=== PATIENT | female | born 1940 | race Caucasian/White ===

== ENCOUNTER 2023-05-19 08:00 | Outpatient (OUT) | payer MEDICARE, OTHER, SELFPAY ==
--- NOTE | 2023-05-19 | PCN_ITS ---
CARDIAC STRESS TEST Requesting Physician: Procedure Date: 05/19/2023 This was a Lexiscan stress test with myocardial perfusion imaging performed at the [facility]. Informed consent was obtained. Intravenous line was secured. Baseline ECG and vital signs were obtained. Lexiscan 0.4 mg were infused intravenously. The patient then went on to obtain myocardial imaging. Resting heart rate was 55 BPM and peak heart rate was 104 BPM. Resting blood pressure was 130/76 and peak blood pressure was 130/76. Resting ECG showed evidence of sinus rhythm with left bundle branch block pattern. ECG after infusion of Lexiscan showed evidence of sinus rhythm with frequent PACs and no significant other changes. SUMMARY OF THE FINDINGS: 1. Uninterpretable ECG stress test due to presence of left bundle branch block at baseline. 2. Myocardial perfusion images will be reportedly separately. MTDD
--- NOTE | 2023-05-19 08:25 | NM_ITS ---
Patient Name: GREG TODD MR#: [id number] : 1940 Exam Date: 05/19/2023 Ordering Doctor: DR Jaime Kelly M.D. RADIOLOGY REPORT PROCEDURE: NM MARQUISE PERF SPECT REST STR COMPARISON: None. INDICATIONS: CHEST PAIN, CORONARY ARTERY DISEASE TECHNIQUE: Exam Description: Stress/Rest one day protocol gated SPECT Rest Imagin.6 mCi Tc-99m Cardiolite IV on 05/19/2023 Stress Imaging 30.3 mCi Tc-99m Cardiolite IV on 05/19/2023 Exercise Protocol: 0.4 mg Lexiscan given IV Heart Rate (bpm): Rest: 58 Max: 103 PMHR: 74 Blood Pressure: Rest: 130/76 Max: 136/78 Symptoms: Rest and peak stress ECG findings were pending and the exercise portion of the study was pending per attending physician Dr. MARQUES . For more details please see separate cardiac stress test report. FINDINGS: QUALITY OF STUDY: Excellent. PERFUSION DEFECT: LOCATION: Basal inferolateral. Mid-inferolateral. Apical anterior. SIZE: Medium (3-4 segments). SEVERITY: Moderate. TYPE: Mixed. WALL MOTION: Normal. LV SIZE: Normal. 44 mL. TID / TCD: None; 0.7 LVEF: Normal. Calculated EF 84%. SUMMARY: Myocardial perfusion imaging study has ABNORMAL findings. CONCLUSION: 1. Small slightly reversible perfusion defect involving the apically anterior segment suggestive of acute ischemia. 2. Fixed perfusion defect involving the mid and basilar inferolateral segments favoring sequela of remote infarction. 3. Normal wall motion and ejection fraction. Dictated by: Nelson Montano M.D. on 05/19/2023 at 15:30 Approved by: Nelson Montano M.D. on 05/19/2023 at 15:37
[2023-05-19] MEDS: REGADENOSON 0.4 MG/5 ML SYRINGE IV (10:06)
== END 2023-05-19 08:01 | disposition home or self-care (01) ==
PROVIDERS: PCP Family Medicine; Visit Provider Internal Medicine Interventional Cardiology
DX: R07.9 Chest pain, unspecified (principal)
CPT/HCPCS: 78452; 93017; A9500; J2785

== ENCOUNTER 2023-07-19 08:47 | Outpatient (OUT) | payer MEDICARE, OTHER, SELFPAY ==
--- OUTSIDE RECORDS SUMMARY | 2023-07-19 09:02 | XMS_ITS | CCD ---
Author Organization [facility] Care Team Providers Care Salesman/Owner Name Role Phone Jennifer Shannon Primary Care Physician [phone] [place] ., DR RODRIGUEZ Consulting Unavailable DEVINE ., DR PACK Attending Unavailable DEVINE ., DR PACK Admitting Unavailable HOY ., DR RODRIGUEZ Primary Care Unavailable [place], DR SHEMAR Graandos Consulting Unavailable HOY ., DR RODRIGUEZ Primary Care Unavailable HOY ., DR RODRIGUEZ Consulting Unavailable HOY ., DR RODRIGUEZ Attending Unavailable HOY ., DR RODRIGUEZ Admitting Unavailable HOY ., DR RODRIGUEZ Consulting Unavailable HOY ., DR RODRIGUEZ Attending Unavailable HOY ., DR RODRIGUEZ Admitting Unavailable HOY ., DR RODRIGUEZ Primary Care Unavailable HOY ., DR RODRIGUEZ Attending Unavailable HOY ., DR RODRIGUEZ Admitting Unavailable HOY ., DR RODRIGUEZ Primary Care Unavailable GARIMA KELLY Attending Unavailable Ruiz DEVINE Attending Unavailable Quique Sebastian Attending Unavaila ble Allergies Allergy Classification Reported Allergen(s) Allergy Type Date of Onset Reaction(s) Facility (2 sources) Penicillin; Translations: [penicillin] Drug Allergy Eruption of skin (disorder) [facility] [place] (2 sources) Penicillins; Translations: [PENICILLINS] Drug allergy (disorder) 4 [facility] (1 source) No Known Medication Allergies; Translations: [No Known Medication Allergies] Propensity to adverse reactions (disorder) [facility] Repository Medications Current Medications Medication Drug Class(es) Dates Sig (Normalized) Sig (Original) aspirin 81 mg chewable tablet (1 source) Platelet Aggregation Inhibitor, Nonsteroidal Anti-inflammatory Drug Start: 01-03-2019 aspirin 81 mg Chew Tab 162 mg = 2 tab(s), Chewed, Daily Start Date: 01/03/19 Status: Ordered calcium carbonate 500 mg oral tablet (1 source) Start: 01-03-2019 take 1 tablet by mouth twice daily calcium carbonate 500 mg +D 1 tab(s), Oral, BID Start Date: 01/03/19 Status: Ordered clopidogrel 75 mg oral tablet (1 source) P2Y12 Platelet Inhibitor Start: 01-03-2019 take 1 tablet by mouth once daily Plavix 75 mg Tab 75 mg = 1 tab(s), Oral, Daily Start Date: 01/03/19 Status: Ordered docusate sodium 100 mg oral capsule (1 source) Start: 01-03-2019 take 1 capsule by mouth twice daily as needed for constipation Colace 100 mg Cap 100 mg = 1 cap(s), Oral, BID, PRN for constipation, # 20 cap(s), Refills(s) 0 Start Date: 01/03/19 Status: Ordered gabapentin 300 mg oral capsule (1 source) Anti-epileptic Agent Start: 01-03-2019 take 1 capsule by mouth twice daily Neurontin 300 mg Cap 300 mg = 1 cap(s), Oral, BID, Refills(s) 0 Start Date: 01/03/19 Status: Ordered latanoprost 0.05 mg/ml ophthalmic solution (1 source) Prostaglandin Analog Start: 01-03-2019 Xalatan 0.005% Soln-Opth 1 drop(s), OPTH, Once a day (at bedtime) Start Date: 01/03/19 Status: Ordered metFORMIN hydrochloride 500 mg oral tablet (1 source) Biguanide Start: 01-03-2019 take 1 tablet by mouth twice daily Glucophage 500 mg Tab 500 mg = 1 tab(s), Oral, BID Start Date: 01/03/19 Status: Ordered metoprolol tartrate 50 mg oral tablet (1 source) beta-Adrenergic Ancelmo Start: 01-03-2019 take 1 tablet by mouth once daily Metoprolol succinate 50 mg ER Tablet 50 mg, Oral, Daily Start Date: 01/03/19 Status: Ordered nitroglycerin 0.4 mg sublingual tablet (1 source) Nitrate Vasodilator Start: 01-03-2019 NitroStat 0.4 mg Tab 0.4 mg = 1 tab(s), SubLingual, q5min Start Date: 01/03/19 Status: Ordered ramipril 2.5 mg oral capsule (1 source) Angiotensin Converting Enzyme Inhibitor Start: 01-03-2019 take 1 capsule by mouth once daily Altace 2.5 mg Cap 2.5 mg = 1 cap(s), Oral, Daily Start Date: 01/03/19 Status: Ordered simvastatin 20 mg oral tablet (1 source) HMG-CoA Reductase Inhibitor Start: 01-03-2019 take 1 tablet by mouth once daily at bedtime simvastatin 20 mg Tab 20 mg = 1 tab(s), Oral, Once a day (at bedtime) Start Date: 01/03/19 Status: Ordered timolol 2.5 mg/ml ophthalmic solution (1 source) beta-Adrenergic Ancelmo Start: 01-03-2019 take 1 drop(s) into the eye(s) twice daily Timoptic 0.25% Soln-Opth 1 drop(s), Eye-Both, BID Start Date: 01/03/19 Status: Ordered Completed/Discontinued Medications Medication Drug Class(es) Dates Sig (Normalized) Sig (Original) Effer-K 25 mEq oral tablet, effervescent (1 source) Start: 09-16-2021 End: 09-11-2022 take 1 tablet by mouth twice daily Effer-K 25 mEq oral tablet, effervescent 25 mEq = 1 tab(s), Oral, BID, X 90 day(s), # 180 tab(s), Refills(s) 3, Pharmacy: [facility]/[id number], 161.3, cm, 04/21/21 14:11:00 EST, Height/Length Dosing, 81.8, kg, 04/21/21 14:11:00 EST, Weight Dosing Start Date: 09/16/21 Stop Date: 09/11/22 Status: Ordered Problems Active Problems Problem Classification Problem Date Documented Da te Episodic/Chronic Coronary atherosclerosis and other heart disease (4 sources) Coronary arteriosclerosis; Translations: [Atherosclerotic heart disease of [place] coronary artery without angina pectoris] Onset: 01-22-2022 04-13-2021 Chronic Diabetes mellitus without complication (2 sources) Diabetes mellitus; Translations: [Type 2 diabetes mellitus without complications] Onset: 01-22-2022 04-13-2021 Chronic Disorders of lipid metabolism (6 sources) Hyperlipidemia; Translations: [Hyperlipidemia, unspecified] Onset: 01-22-2022 01-23-2019 Chronic Diverticulosis and diverticulitis (1 source) Diverticular disease 04-13-2021 Chronic Essential hypertension (2 sources) Benign hypertension; Translations: [Essential (primary) hypertension] Onset: 01-22-2022 01-23-2019 Chronic Genitourinary symptoms and ill-defined conditions (4 sources) Stress incontinence (female) (male); Translations: [Genuine stress incontinence] Onset: 03-27-2022 Chronic Glaucoma (1 source) Glaucoma 04-13-2021 Chronic Hemorrhoids (1 source) Internal hemorrhoids 01-03-2019 Episodic Malaise and fatigue (2 sources) Other fatigue; Translations: [Other fatigue] Onset: 05-09-2023 Episodic Nonmalignant breast conditions (1 source) Fibrocystic disease of breast 04-13-2021 Chronic Nutritional deficiencies (1 source) Vitamin D deficiency, unspecified; Translations: [VITAMIN D DEFICIENCY UNSPECIFIED] Onset: 01-22-2022 Chronic Other and unspecified benign neoplasm (1 source) Pseudopolyposis of colon 01-03-2019 Episodic Other bone disease and musculoskeletal deformities (1 source) Osteopenia 04-13-2021 Episodic Other gastrointestinal disorders (1 source) Disorder of intestine; Translations: [Disease of intestine, unspecified] Onset: 04-02-2022 Episodic Other gastrointestinal disorders (1 source) Bowel problem 03-30-2021 Episodic Other nervous system disorders (4 sources) Other abnormalities of gait and mobility; Translations: [OTHER ABNORMALITIES GAIT AND MOBILITY] Onset: 06-09-2022 Episodic Other nutritional; endocrine; and metabolic disorders (1 source) Body mass index 30+ - obesity 04-21-2021 Chronic Other skin disorders (1 source) Inflamed seborrheic keratosis 04-21-2021 Episodic Other skin disorders (1 source) Senile hyperkeratosis 01-23-2019 Episodic Spondylosis; intervertebral disc disorders; other back problems (1 source) Spinal stenosis 04-13-2021 Episodic Varicose veins of lower extremity (1 source) Varicose veins of lower extremity 04-13-2021 Episodic Past or Other Problems Problem Classification Problem Date Documented Da te Episodic/Chronic Calculus of urinary tract (8 sources) Kidney stone; Translations: [Calculus of kidney] Onset: 03-22-2022 Episodic Deficiency and other anemia (1 source) Anemia, unspecified; Translations: [ANEMIA UNSPECIFIED] Onset: 01-22-2022 Episodic Diabetes mellitus without complication (1 source) Other abnormal glucose; Translations: [OTHER ABNORMAL GLUCOSE] Onset: 01-22-2022 Episodic Other gastrointestinal disorders (1 source) Disease of intestine, unspecified; Translations: [DISEASE OF INTESTINE UNSPECIFIED] Onset: 03-27-2022 Episodic Other screening for suspected conditions (not mental disorders or infectious disease) (1 source) Encounter for screening for malignant neoplasm of rectum; Translations: [ENC SCREEN MALIG NEOPLASM RECTUM] Onset: 01-22-2022 Episodic Residual codes; unclassified (4 sources) Insomnia, unspecified; Translations: [INSOMNIA UNSPECIFIED] Onset: 01-20-2022 Episodic Results Test Name Value Interpretation Reference Range Facility 36on 05-25-[address] Kelly on 05/24/2023: Please let the patient know that there is a minor abnormality on stress test that does not warrant cardiac catheterization. We will continue to treat him medically. Follow-up in 6 to 12 months which ever per my last clinic note Thank you 05/25/2023: LM on patient's VM. Dr. Shannon's office made aware also. Normal [facility] Office Visiton 05-09-2023 Follow-up visit [id number] Kelin Rosenberg 1940 F Date Provider Department Center 05/09/2023 [id number], GARIMA [facility] Family History Problem Relation Age of Onset Diabetes Mother Coronary artery disease Father Family Status - Relation Status Age at Mother Father Level of Service:08994 CO OFFICE/OUTPATIENT ESTABLISHED MOD MDM [address] [facility] Patient Letter FTMCon 2022 Patient [place] [facility] [place] 07, 2023 KELIN ROSENBERG [address] [place] [address] : 1940 Dear Kelin, This is a reminder that you are due for an appointment with [facility]. Please contact our office at [phone] to schedule your 10 year colon recall Thank you, [facility] Rem[facility]erson 02-07-2023 Reminders -- From: Isabel Dale MA To: Isabel Dale MA; Sent: 02/07/2023 10:24:57 EDT Show up: 02/07/2023 10:25:00 EDT Subject: colon recall Reminder Message [address] Esteban 02/16/13 first recall letter sent Normal [facility] LIPID PROFILEon 04-28-2022 CHOL-HDL RATIO NORM SEE BELOW Normal [facility] Comment on above: Result Comment: 3.3 - 4.4 LOW RISK 4.4 - 7.1 AVERAGE RISK 7.1 - 11.0 MODERATE RISK >11.0 HIGH RISK Performed By: #### L IPID, LIVER #### [facility] [address] [address] [address] Dora Mora Cholesterol [Mass/Vol] 199 mg/dL Normal <=200 [facility] Comment on above: Performed By: #### L IPID, LIVER #### [facility] [address] [address] [address] Dora Mora Cholesterol in HDL [Mass/Vol] 75 mg/dL Critically high 40-60 [facility] Comment on above: Performed By: #### L IPID, LIVER #### [facility] [address] [address] [address] Dora Mora Cholesterol in LDL [Mass/Vol] 86.2 mg/dL Normal [facility] Comment on above: Performed By: #### L IPID, LIVER #### [facility] [address] [address] [address] Dora Mora Cholesterol.total/Cho lesterol in HDL [Mass ratio] 2.7 {ratio} Normal [facility] Comment on above: Performed By: #### L IPID, LIVER #### [facility] [address] [address] [address] Dora Mora HDL NORMAL > or = 60 mg/dl - LOW CARDIOVASCULAR RISK <40 mg/dl - HIGH CARDIOVASCULAR RISK Normal [facility] Comment on above: Performed By: #### L IPID, LIVER #### [facility] [address] [address] [address] Dora Mora LDL CALC NORMAL SEE BELOW Normal [facility] Comment on above: Result Comment: <100 mg/dl OPTIMAL 100 - 129 mg/dl NEAR OR ABOVE OPTIMAL 130 - 159 mg/dl BORDERLINE HIGH 160 - 189 mg/dl HIGH >190 mg/dl VERY HIGH Performed By: #### L IPID, LIVER #### [facility] [address] [place] [address] Dr. Dora Mora Triglyceride [Mass/Vol] 189 mg/dL Critically high <=150 [facility] Comment on above: Performed By: #### L IPID, LIVER #### [facility] [address] [address] [address] Dora Mora VLDL CALC 37.8 mg/dL Normal [facility] Comment on above: Performed By: #### L IPID, LIVER #### [facility] [address] [address] [address] Dora Mora LIVER PROFILEon 04-28-2022 Albumin [Mass/Vol] 3.7 g/dL Normal 3.4-5.0 [facility] Comment on above: Performed By: #### L IPID, LIVER #### [facility] [address] [place] [address] Dr. Dora Mora Albumin/Globulin [Mass ratio] 1.0 {ratio} Normal [facility] Comment on above: Performed By: #### L IPID, LIVER #### [facility] [address] [place] [address] Dr. Dora Mora ALP [Catalytic activity/Vol] 62 U/L Normal 46-116 [facility] Comment on above: Performed By: #### L IPID, LIVER #### [facility] [address] [place] [address] Dr. Dora Mora ALT [Catalytic activity/Vol] 18 U/L Normal 14-59 [facility] Comment on above: Performed By: #### L IPID, LIVER #### [facility] [address] [place] [address] Dr. Dora Mora AST [Catalytic activity/Vol] 19 U/L Normal 15-37 [facility] Comment on above: Performed By: #### L IPID, LIVER #### [facility] [address] [place] [address] Dr. Dora Mora BILI, CONJUGATED 0.1 mg/dL Normal 0.0-0.2 [facility] Comment on above: Performed By: #### L IPID, LIVER #### [facility] [address] [place] [address] Dr. Dora Mora Bilirubin [Mass/Vol] 0.5 mg/dL Normal 0.2-1.0 [facility] Comment on above: Performed By: #### L IPID, LIVER #### [facility] [address] [place] [address] Dr. Dora Mora Globulin (S) [Mass/Vol] 3.7 g/dL Normal [facility] Comment on above: Performed By: #### L IPID, LIVER #### [facility] [address] [place] [address] Dr. Dora Mora Protein [Mass/Vol] 7.4 g/dL Normal 6.4-8.2 [facility] Comment on above: Performed By: #### L IPID, LIVER #### [facility] [address] [place] [address] Dr. Dora Mora XR KUB 1 VIEWon 03-22-2022 XR KUB 1 VIEW EXAMINATION: XR KUB 1 VIEW HISTORY: Kidney stone COMPARISON: No relevant comparison available. FINDINGS: KIDNEY/URETER - RIGHT: No visible renal or ureteral calcifications. KIDNEY/URETER - LEFT: No visible renal or ureteral calcifications. PELVIS: No visible ureteral calcifications. Any visible calcifications favor phleboliths. BOWEL: No abnormal dilation or deviation. BONES: Severe degenerative changes of the spine. Moderate bilateral hip osteoarthritis OTHER: Negative. No abnormal gaseous collections. IMPRESSION: No definite urinary tract calculi Electronically authenticated by: SHEMAR ARELLANO Date: 2022-03-22 12:08 Normal [facility] INSULINon 01-21-2022 Insulin 16.5 uIU/mL Normal 2.6-24.9 [facility] Comment on above: Performed By: #### I NSULIN #### [facility] [address] [place] [address] Dr. Dora Mora CBC AUTO DIFFon 01-20-2022 BASO # 0.0 103/ul Normal 0.0-0.1 [facility] Comment on above: Performed By: #### L IPID, LIVER #### [facility] [address] [address] [address] Dora Mora Basophils/100 WBC (Bld) 0.5 % Normal 0.2-2.0 [facility] Comment on above: Performed By: #### L IPID, LIVER #### [facility] [address] [address] [address] Dora Mora EO # 0.2 103/ul Normal 0.0-0.7 [facility] Comment on above: Performed By: #### L IPID, LIVER #### [facility] [address] [address] [address] Dora Mora Eosinophils/100 WBC (Bld) 2.4 % Normal 0.9-7.0 [facility] Comment on above: Performed By: #### L IPID, LIVER #### [facility] [address] [place] [address] Dr. Dora Mora Erythrocyte distribution width (RBC) [Ratio] 12.9 % Normal 11.0-15.0 [facility] Comment on above: Performed By: #### L IPID, LIVER #### [facility] [address] [address] [address] Dora Mora Hematocrit (Bld) [Volume fraction] 39.9 % Normal 36.0-48.0 [facility] Comment on above: Performed By: #### L IPID, LIVER #### [facility] [address] [address] [address] Dora Mora Hemoglobin (Bld) [Mass/Vol] 13.4 g/dL Normal 12.0-16.0 [facility] Comment on above: Performed By: #### L IPID, LIVER #### [facility] [address] [address] [address] Dora Mora IG # 0.07 10e3/ul Critically high 0.00-0.03 [facility] Comment on above: Performed By: #### L IPID, LIVER #### [facility] [address] [address] [address] Dora Mora IG % 0.9 % Critically high 0.0-0.5 [facility] Comment on above: Performed By: #### L IPID, LIVER #### [facility] [address] [address] [address] Dora Mora LYMPH # 2.5 103/ul Normal 1.2-3.8 [facility] Comment on above: Performed By: #### L IPID, LIVER #### [facility] [address] [place] [address] Dr. Dora Mora Lymphocytes/100 WBC (Bld) 32.4 % Normal 20.5-60.0 [facility] Comment on above: Performed By: #### L IPID, LIVER #### [facility] [address] [place] [address] Dr. Dora Mora MANUAL DIFF REQ NO Normal [facility] Comment on above: Performed By: #### L IPID, LIVER #### [facility] [address] [place] [address] Dr. Dora Mora MCH (RBC) [Entitic mass] 30.1 pg Normal 26.7-34.0 [facility] Comment on above: Performed By: #### L IPID, LIVER #### [facility] [address] [place] [address] Dr. Dora Mora MCHC (RBC) [Mass/Vol] 33.6 g/dL Normal 29.9-35.2 [facility] Comment on above: Performed By: #### L IPID, LIVER #### [facility] [address] [place] [address] Dr. Dora Mora MCV (RBC) [Entitic vol] 89.7 fL Normal 81.0-99.0 [facility] Comment on above: Performed By: #### L IPID, LIVER #### [facility] [address] [place] [address] Dr. Dora Mora MONO # 0.5 103/ul Normal 0.3-0.8 [facility] Comment on above: Performed By: #### L IPID, LIVER #### [facility] [address] [place] [address] Dr. Dora Mora Monocytes/100 WBC (Bld) 6.5 % Normal 1.7-12.0 [facility] Comment on above: Performed By: #### L IPID, LIVER #### [facility] [address] [place] [address] Dr. Dora Mora NEUT # 4.3 103/ul Normal 1.4-6.5 [facility] Comment on above: Performed By: #### L IPID, LIVER #### [facility] [address] [place] [address] Dr. Dora Mora Neutrophils/100 WBC (Bld) 57.3 % Normal 43.0-75.0 [facility] Comment on above: Performed By: #### L IPID, LIVER #### [facility] [address] [place] [address] Dr. Dora Mora Platelet mean volume (Bld) [Entitic vol] 9.2 fL Critically low 9.5-13.5 [facility] Comment on above: Performed By: #### L IPID, LIVER #### [facility] [address] [place] [address] Dr. Dora Mora PLT 261 103/ul Normal 150-450 [facility] Comment on above: Performed By: #### L IPID, LIVER #### [facility] [address] [place] [address] Dr. Dora Mora RBC 4.45 106/ul Normal 4.20-5.40 [facility] Comment on above: Performed By: #### L IPID, LIVER #### [facility] [address] [place] [address] Dr. Dora Mora WBC 7.6 103/ul Normal 4.0-11.0 [facility] Comment on above: Performed By: #### L IPID, LIVER #### [facility] [address] [place] [address] Dr. Dora Mora FREE THYROXINE INDEX T7on FTI 2.93 Normal 1.30-4.50 [facility] Comment on above: Performed By: #### C MP, TSH, T7, LIPID #### [facility] [address] [place] [address] Dr. Dora Mora T3U 38.0 % Normal 30.0-39.0 [facility] Comment on above: Performed By: #### C MP, TSH, T7, LIPID #### [facility] [address] [address] [address] Dora Mora T4 [Mass/Vol] 7.70 ug/dL Normal 4.80-13.90 [facility] Comment on above: Performed By: #### C MP, TSH, T7, LIPID #### [facility] [address] [address] [address] Dora Mora GLYCOHEMOGLOBIN A1Con 2021 ADA RECOMMENDATION SEE BELOW Normal [facility] Comment on above: Result Comment: ADA RECOMMENDED LIMIT 4.0 - 6.0 ADA THERAPEUTIC TARGET < 7.0 ACTION SUGGESTED > 7.0 Performed By: #### A 1C #### [facility] [address] [address] [address] Dora Mora Glucose [Mass/Vol] 148 mg/dL Normal [facility] Comment on above: Performed By: #### A 1C #### [facility] [address] [address] [address] Dora Mora HbA1c (Bld) [Mass fraction] 6.8 % Critically high 4.5-6.2 [facility] Comment on above: Performed By: #### A 1C #### [facility] [address] [address] [address] Dora Mora IRONon 01-20-2022 Iron [Mass/Vol] 88.0 ug/dL Normal 50.0-170.0 [facility] Comment on above: Performed By: #### I JOCELYNN, VITAD #### [facility] [address] [address] [address] Dora Mora LIPID PROFILEon 01-20-2022 CHOL-HDL RATIO NORM SEE BELOW Normal [facility] Comment on above: Result Comment: 3.3 - 4.4 LOW RISK 4.4 - 7.1 AVERAGE RISK 7.1 - 11.0 MODERATE RISK >11.0 HIGH RISK Performed By: #### L IPID, LIVER #### [facility] [address] [address] [address] Dora Mora Cholesterol [Mass/Vol] 180 mg/dL Normal <=200 [facility] Comment on above: Performed By: #### L IPID, LIVER #### [facility] [id number] Dora Mora Cholesterol in HDL [Mass/Vol] 64 mg/dL Critically high 40-60 [facility] Comment on above: Performed By: #### L IPID, LIVER #### [facility] [address] [address] [address] Dora Mora Cholesterol in LDL [Mass/Vol] 55.4 mg/dL Normal [facility] Comment on above: Performed By: #### L IPID, LIVER #### [facility] [address] [address] [address] Dora Mora Cholesterol.total/Cho lesterol in HDL [Mass ratio] 2.8 {ratio} Normal [facility] Comment on above: Performed By: #### L IPID, LIVER #### [facility] [address] [address] [address] Dora Mora HDL NORMAL > or = 60 mg/dl - LOW CARDIOVASCULAR RISK <40 mg/dl - HIGH CARDIOVASCULAR RISK Normal [facility] Comment on above: Performed By: #### L IPID, LIVER #### [facility] [address] [address] [address] Dora Mora LDL CALC NORMAL SEE BELOW Normal [facility] Comment on above: Result Comment: <100 mg/dl OPTIMAL 100 - 129 mg/dl NEAR OR ABOVE OPTIMAL 130 - 159 mg/dl BORDERLINE HIGH 160 - 189 mg/dl HIGH >190 mg/dl VERY HIGH Performed By: #### L IPID, LIVER #### [facility] [address] [address] [address] Dora Mora Triglyceride [Mass/Vol] 303 mg/dL Critically high <=150 [facility] Comment on above: Performed By: #### L IPID, LIVER #### [facility] [address] [address] [address] Dora Mora VLDL CALC 60.6 mg/dL Normal [facility] Comment on above: Performed By: #### L IPID, LIVER #### [facility] [address] [place] [address] Dr. Dora Mora PROF 14(COMP METB)on 022 Albumin [Mass/Vol] 3.4 g/dL Normal 3.4-5.0 [facility] Comment on above: Performed By: #### C MP, TSH, T7, LIPID #### [facility] [address] [place] [address] Dr. Dora Mora Albumin/Globulin [Mass ratio] 0.9 {ratio} Normal [facility] Comment on above: Performed By: #### C MP, TSH, T7, LIPID #### [facility] [address] [place] [address] Dr. Dora Mora ALP [Catalytic activity/Vol] 61 U/L Normal 46-116 [facility] Comment on above: Performed By: #### C MP, TSH, T7, LIPID #### [facility] [address] [place] [address] Dr. Dora Mora ALT [Catalytic activity/Vol] 22 U/L Normal 14-59 [facility] Comment on above: Performed By: #### C MP, TSH, T7, LIPID #### [facility] [address] [place] [address] Dr. Dora Mora Anion gap [Moles/Vol] 10.9 mmol/L Normal [facility] Comment on above: Performed By: #### C MP, TSH, T7, LIPID #### [facility] [address] [place] [address] Dr. Dora Mora AST [Catalytic activity/Vol] 13 U/L Critically low 15-37 [facility] Comment on above: Performed By: #### C MP, TSH, T7, LIPID #### [facility] [address] [place] [address] Dr. Dora Mora Bilirubin [Mass/Vol] 0.6 mg/dL Normal 0.2-1.0 [facility] Comment on above: Performed By: #### C MP, TSH, T7, LIPID #### [facility] [address] [address] [address] Dora Mora Calcium [Mass/Vol] 9.4 mg/dL Normal 8.5-10.1 [facility] Comment on above: Performed By: #### C MP, TSH, T7, LIPID #### [facility] [address] [address] [address] Dora Mora Chloride [Moles/Vol] 103 mmol/L Normal 98-107 [facility] Comment on above: Performed By: #### C MP, TSH, T7, LIPID #### [facility] [address] [address] [address] Dora Mora CO2 [Moles/Vol] 28.6 mmol/L Normal 21.0-32.0 [facility] Comment on above: Performed By: #### C MP, TSH, T7, LIPID #### [facility] [address] [address] [address] Dora Mora Creatinine [Mass/Vol] 0.86 mg/dL Normal 0.55-1.02 [facility] Comment on above: Performed By: #### C MP, TSH, T7, LIPID #### [facility] [address] [address] [address] Dora Mora EGFR-AF ZAMBIAN >60 Normal >=60 [facility] Comment on above: Performed By: #### C MP, TSH, T7, LIPID #### [facility] [address] [place] [address] Dr. Dora Mora EGFR-NON AF ZAMBIAN >60 Normal >=60 [facility] Comment on above: Performed By: #### C MP, TSH, T7, LIPID #### [facility] [address] [address] [address] Dora Mora Globulin (S) [Mass/Vol] 3.6 g/dL Normal [facility] Comment on above: Performed By: #### C MP, TSH, T7, LIPID #### [facility] [address] [address] [address] Dora Mora Glucose [Mass/Vol] 167 mg/dL Critically high 74-106 [facility] Comment on above: Performed By: #### C MP, TSH, T7, LIPID #### [facility] [address] [address] [address] Dora Mora Potassium [Moles/Vol] 4.5 mmol/L Normal 3.5-5.1 [facility] Comment on above: Performed By: #### C MP, TSH, T7, LIPID #### [facility] [address] [place] [address] Dr. Dora Mora Protein [Mass/Vol] 7.0 g/dL Normal 6.4-8.2 [facility] Comment on above: Performed By: #### C MP, TSH, T7, LIPID #### [facility] [address] [place] [address] Dr. Dora Mora Sodium [Moles/Vol] 138 mmol/L Normal 136-145 [facility] Comment on above: Performed By: #### C MP, TSH, T7, LIPID #### [facility] [address] [place] [address] Dr. Dora Mora Urea nitrogen [Mass/Vol] 20.0 mg/dL Critically high 7.0-18.0 [facility] Comment on above: Performed By: #### C MP, TSH, T7, LIPID #### [facility] [address] [place] [address] Dr. Dora Mora Urea nitrogen/Creatinine [Mass ratio] 23.3 mg/mg Normal [facility] Comment on above: Performed By: #### C MP, TSH, T7, LIPID #### [facility] [address] [place] [address] Dr. Dora Mora TSHon 01-20-2022 TSH 1.657 uIU/mL Normal 0.358-3.[address] [facility] Comment on above: Performed By: #### C MP, TSH, T7, LIPID #### [facility] [address] [place] [address] Dr. Dora Mora VITAMIN D 25 OHon 01-20-2022 VIT D 25-OH 96.7 ng/mL Normal [facility] Comment on above: Performed By: #### I JOCELYNN VITAD #### [facility] [address] [address] [address] Dora Mora VIT D RANGES SEE BELOW Normal [facility] Comment on above: Result Comment: <20 ng/mL Vit D deficient 20 - <30 ng/mL Vit D insufficient 30 - 100 ng/mL Vit D sufficient >100 ng/mL Potential Toxicity Performed By: #### I JOCELYNN VITAD #### [facility] [address] [address] [address] Dora Mora Vital Signs Date Time Vital Sign Value Performing Clinician Faci lity 04-02-2022 08:12-0500 Blood Pressure Location Ruiz DEVINE [facility] 04-02-2022 08:12-0500 Diastolic blood pressure 72 mm[Hg] Ruiz DEVINE [facility] 04-02-2022 08:12-0500 Heart rate 68 /min Ruiz DEVINE [facility] 04-02-2022 08:12-0500 Respiratory rate 16 /min Ruiz DEVINE [facility] 04-02-2022 08:12-0500 Systolic blood pressure 124 mm[Hg] Ruiz DEVINE [facility] Encounters Encounter Date Encounter Type Care Provider Facility Start: 04-02-2024 ambulatory Ruiz Connor ty:[facility] Start: 05-09-2023 End: 05-09-2023 ambulatory [facility] Start: 02-07-2023 ambulatory Quique Sebastian Facility:[facility] Start: 06-09-2022 End: 07-07-[address] JENNIFER SHANNON . Facility:[facility] Start: 04-28-2022 End: 04-29-[address] JENNIFER SHANNON . Facility:[facility] Start: 04-02-2022 End: 04-02-2022 Patient encounter procedure Ruiz DEVINE [facility] Start: 03-22-2022 End: 03-23-[address] JENNIFER SHANNON . Facility: Start: 01-20-2022 End: 01-21-[address] JENNIFER SHANNON . Facility: Procedures Date Procedure Procedure Detail Performing Clinician Start: 04-28-2021 Excisional biopsy Shannonterry DEVINE Comment on above: right hand- inflamed seborrheic keratosis Start: 05-03-2013 Extracorporeal shock wave lithotripsy of calculus of kidney Ruiz DEVINE Comment on above: left stent removal Start: 04-26-2013 Cystoscopic insertio n of ureteric stent Ruiz DEVINE Comment on above: left Start: 02-02-2010 Cystoscopy Ruiz MARILYN ASH Comment on above: right stent removal Start: 01-28-2010 Cystoscopic insertio n of ureteric stent Ruiz DEVINE Start: 01-19-2010 Cystourethroscopy wi th dilation of urethral stricture Ruiz DEVINE Start: 04-18-2009 Coronary artery bypa ss grafts x 4 Ruiz DEVINE Immunizations Immunization Date Immunization Notes Care Provider Eliane santiago 04-18-2020 SARS-CoV-2 (COVID-19 ) [id number] vaccine Ruiz DEVINE [facility] Comment on above: Result Comment: pt d oes not have her card and can not remember the dates Payers Date Payer Category Payer Medicare [id number] 1959 Private Health Insurance [id number] 1940 Unknown [id number] 1940 Unknown [id number] [id number] 1940 Unknown [id number] [id number] 1940 Unknown [id number] [id number] 1940 Unknown [id number] [id number] Social History Date Type Detail Facility Start: 04-21-2021 Tobacco smoking status Never s moked tobacco (finding) [facility] Sex Assigned At Female [facility] Functional Status Date Assessment Result Facility 04-02-2022 Functional Status N/A [facility] Progress note 05-09-2023 Note Date & Type Note Facility 05-09-2023 Note [facility] Note Chief Complaint: Patient here for 1 year follow up CAD, hypertension, and hyperlipidemia. Denies chest pain, SOB, and palpitations. No lab work since last Apr 2022. HPI: Kelin Rosenberg is a 81 y.o. female with a history of coronary artery disease, prior coronary artery bypass graft surgery in 2009, hypertension, diabetes mellitus and HLD. Doing well from cardiac standpoint Hx of sciatic nerve pain, this has improved with therapy She has chronic vertigo which is currently well controlled, takes meclizine if needed Denies CP, dyspnea, HERRING, orthopnea, PND, LE edema, dizziness/LH, palpitations, syncope. Update 05/09/2023: The patient does not remember exactly how she felt prior to bypass in 2009 however her main symptoms related to fatigue. She had no chest pain at that time. She currently states that she is fatigued however thinks this is related to poor sleeping. She takes multiple naps during the day and therefore cannot sleep properly at night NM stress test 05/05/2018 CONCLUSION: 1. No acute or reversible ischemia. 2. Small, moderate fixed anterior septal wall perfusion defect; remote infarction versus breast attenuation artifact. Remote infarction is suspected. 3. Normal wall motion and ejection fraction. Cardiology ROS: Review of Systems Constitutional: Positive for weight loss (21# since Apr 2022). All other systems reviewed and are negative. Past Medical History She has a past medical history of Arrhythmia, Coronary artery disease, Diabetes (CMS/HCC), Glaucoma, Hyperlipidemia, Hypertension, and Kidney stones. Surgical History She has a past surgical history that includes Coronary artery bypass graft (07/01/2009) and Cardiac catheterization (06/27/2009). Social History She reports that she has never smoked. She has never used smokeless tobacco. She reports that she does not currently use alcohol. No history on file for drug use. Family History Family History Problem Relation Name Age of Onset Diabetes Mother Coronary artery disease Father Allergies Penicillins Medications Current Outpatient Medications: aspirin 81 mg EC tablet, Take 162 mg by mouth 1 (one) time., Disp: , Rfl: gabapentin (Neurontin) 300 mg capsule, gabapentin 300 mg capsule TAKE 1 CAPSULE BY MOUTH TWICE DAILY, Disp: , Rfl: latanoprost (Xalatan) 0.005 % ophthalmic solution, latanoprost 0.005 % eye drops, Disp: , Rfl: metFORMIN (Glucophage) 500 mg tablet, metformin 500 mg tablet TAKE 1 TABLET BY MOUTH TWICE DAILY, Disp: , Rfl: metoprolol succinate XL (Toprol-XL) 50 mg 24 hr tablet, metoprolol succinate ER 50 mg tablet,extended release 24 hr TAKE 1 TABLET BY MOUTH EVERY DAY, Disp: 90 tablet, Rfl: 3 potassium bicarbonate (K-Lyte) 25 mEq effervescent tablet, Take 25 mEq by mouth in the morning and at bedtime., Disp: , Rfl: ramipril (Altace) 2.5 mg capsule, ramipril 2.5 mg capsule TAKE 1 CAPSULE BY MOUTH EVERY DAY, Disp: , Rfl: simvastatin (Zocor) 20 mg tablet, simvastatin 20 mg tablet TAKE 1 TABLET BY MOUTH EVERY night, Disp: , Rfl: Last Recorded Vitals BP 118/74 (BP Location: Left arm, Patient Position: Sitting) Pulse 64 Ht 1.6 m (5' 3 ) Wt 68 kg (150 lb) SpO2 98% BMI 26.57 kg/m??? Physical Examination: GENERAL: alert and oriented x3, well developed, in no acute distress. HEAD: atraumatic, normocephalic. EYES: MAGNOLIA, EOMI. NECK: trachea midline, no JVD present, no carotid bruits present. CARDIAC: S1, S2 present. RRR. No murmur, rubs, or gallops. RESPIRATORY: CTAB, no increased effort of breathing, no rales, rhonchi, or wheezing. ABDOMEN: soft, nontender, nondistended. EXTREMITIES: no lower extremity edema, peripheral pulses are 2+ bilaterally. No rash/skin discoloration present. NEURO: strength/sensation equal and symmetric in bilateral upper and lower extremities. PSYCH: appropriate mood, affect, and judgement. Assessment: Coronary atherosclerosis hx CABG 2010 [address] RADIAL OM1 SVG X2 RCA - non ischemic stress test 2019. Essential hypertension Hyperlipidemia Type 2 diabetes mellitus Fatigue: Anginal equivalent? Plan: Continue optimal medical therapy for coronary disease including aspirin, high intensity statin therapy, a beta-ancelmo and an angiotensin-converting enzyme inhibitor It has been 5 years since hr last ischemic work-up, will repeat a stress test given h/o CAD, CABG and DM. Will have a high threshold to recommend repeat angiography given her clinical stability unless high risk findings are seen Given her diabetes and vascular disease, an SGLT2 inhibitor would be strongly recommended She is on Zocor or simvastatin; I would recommend switching to atorvastatin or rosuvastatin which are guideline recommended statins in patients with coronary artery disease. Will defer to Dr. Shannon her family physician Return to clini (more content not included)... [facility] Hospital Discharge instructions 04-02-2022 Note Date & Type Note Facility 04-02-2022 Hospital Discharg e instructions Patient Education 04/02/2022 08:53:58 Kidney Stones, [id number] Kidney Stones Kidney stones are rock-like masses that form inside of the kidneys. Kidneys are organs that make pee (urine). A kidney stone may move into other parts of the urinary tract, including: The tubes that connect the kidneys to the bladder (ureters). The bladder. The tube that carries urine out of the body (urethra). Kidney stones can cause very bad pain and can block the flow of pee. The stone usually leaves your body (passes) through your pee. You may need to have a doctor take out the stone. What are the causes? Kidney stones may be caused by: A condition in which certain glands make too much parathyroid hormone (primary hyperparathyroidism). A buildup of a type of crystals in the bladder made of a chemical called uric acid. The body makes uric acid when you eat certain foods. Narrowing (stricture) of one or both of the ureters. A kidney blockage that you were born with. Past surgery on the kidney or the ureters, such as gastric bypass surgery. What increases the risk? You are more likely to develop this condition if: You have had a kidney stone in the past. You have a family history of kidney stones. You do not drink enough water. You eat a diet that is high in protein, salt (sodium), or sugar. You are overweight or very overweight (obese). What are the signs or symptoms? Symptoms of a kidney stone may include: Pain in the side of the belly, right below the ribs (flank pain). Pain usually spreads (radiates) to the groin. Needing to pee often or right away (urgently). Pain when going pee (urinating). Blood in your pee (hematuria). Feeling like you may vomit (nauseous). Vomiting. Fever and chills. How is this treated? Treatment depends on the size, location, and makeup of the kidney stones. The stones will often pass out of the body through peeing. You may need to: Drink more fluid to help pass the stone. In some cases, you may be given fluids through an IV tube put into one of your veins at the hospital. Take medicine for pain. Make changes in your diet to help keep kidney stones from coming back. Sometimes, medical procedures are needed to remove a kidney stone. This may involve: A procedure to break up kidney stones using a beam of light (laser) or shock waves. Surgery to remove the kidney stones. Follow these instructions at home: Medicines Take [id number] and prescription medicines only as told by your doctor. Ask your doctor if the medicine prescribed to you requires you to avoid driving or using heavy machinery. Eating and drinking Drink enough fluid to keep your pee pale yellow. You may be told to drink at least 8 10 glasses of water each day. This will help you pass the stone. If told by your doctor, change your diet. This may include: ?Limiting how much salt you eat. ?Eating more fruits and vegetables. ?Limiting how much meat, poultry, fish, and eggs you eat. Follow instructions from your doctor about eating or drinking restrictions. General instructions Collect pee samples as told by your doctor. You may need to collect a pee sample: ?24 hours after a stone comes out. ?8 12 weeks after a stone comes out, and every 6 12 months after that. Strain your pee every time you pee (urinate), for as long as told. Use the strainer that your doctor recommends. Do not throw out the stone. Keep it so that it can be tested by your doctor. Keep all follow-up visits as told by your doctor. This is important. You may need follow-up tests. How is this prevented? To prevent another kidney stone: Drink enough fluid to keep your pee pale yellow. This is the best way to prevent kidney stones. Eat healthy foods. Avoid certain foods as told by your doctor. You may be told to eat less protein. Stay at a healthy weight. Where to find more information National Kidney Foundation (NKF): www.kidney.org [facility] (UCF): www.urologyhealth.org Contact a doctor if: You have pain that gets worse or does not get better with medicine. Get help right away if: You have a fever or chills. You get very bad pain. You get new pain in your belly (abdomen). You pass out (faint). You cannot pee. Summary Kidney stones are rock-like masses that form inside of the kidneys. Kidney stones can cause very bad pain and can block the flow of pee. The stones will often pass out of the body through peeing. Drink enough fluid to keep your pee pale yellow. This information is not intended to replace advice given to you by your health care provider. Make sure you discuss any questions you have with your health care provider. Document Released: 09/20/2008 Document Revised: 08/21/2019 Document Reviewed: 08/21/2019 [employer] Patient Education 2020 [employer] Follow Up Care 03/30/2021 09:32:03 With:SYBIL RODRIGUEZ, Ruiz Rangel, MILADYSL Address: [address] [place] [address]- When: Unknown [facility] Evaluation + Plan note Note Date & Type Note Facility Evaluation + Plan note No data available for this section [facility] Progress note Note Date & Type Note Facility Progress note No data available for this section [facility] Summary Purpose Family History No Family History Records FoundNo Family History Records FoundNo Family History Records Found Advance Directives No Advanced Directives Records FoundNo Advanced Directives Records FoundNo Advanced Directives Records Found Additional Source Comments Patient Care team informatio n (unrecognized section and content) Personnel Name: Jennifer Shannon MD Address: Address: [address] [place] [address] [place] [address]- INFORMATION SOURCE (unrecogn ized section and content) DATE CREATED AUTHOR 07/24/2022 [facility] DATE CREATED AUTHOR AUTHOR'S ORGANIZ ATION 05/26/2023 [facility] DATE CREATED AUTHOR AUTHOR'S ORGANIZ ATION 06/21/2023 [facility] FOR RECORDS PERTAINING TO PATIENTS WHO ARE OR HAVE BEEN ENROLLED IN A CHEMICAL DEPENDENCY/SUBSTANCEABUSE PROGRAM, SOME INFORMATION MAY BE OMITTED. This clinical summary was aggregated from multiple sources. Caution should be exercised in using it in the provision of clinical care. This summary normalizes information from multiple sources, and as a consequence, information in this document may materially change the coding, format and clinical context of patient data. In addition, data may be omitted in some cases. CLINICAL DECISIONS SHOULD BE BASED ON THE PRIMARY CLINICAL RECORDS. [facility] [employer] [facility]. provides no warranty or guarantee of the accuracy or completeness of information in this document.
[2023-07-19 09:37] LABS: Basophils Percent Auto 0.6 % (0.2-2.0); Eosinophils Absolute Auto 0.5 10^3/uL (0.0-0.7); Eosinophils Percent Auto 7.5 % (0.9-7.0); Immature Granulocytes Abs Auto 0.02 10^3/uL (0.00-0.03); Immature Granulocytes Pct Auto 0.3 % (0.0-0.5); Lymphocytes Absolute Auto 1.9 10^3/uL (1.2-3.8); Mean Corpuscular HGB Conc 32.5 g/dL (29.9-35.2); Mean Corpuscular Volume 92.2 fL (81.0-99.0); Mean Platelet Volume 9.5 fL (9.5-13.5); Monocytes Absolute Auto 0.5 10^3/uL (0.3-0.8); Neutrophils Absolute Auto 3.5 10^3/uL (1.4-6.5); Neutrophils Percent Auto 54.6 % (43.0-75.0); Platelet Count 277 10^3/uL (150-450); Red Blood Count 4.34 10^6/uL (4.20-5.40); White Blood Count 6.4 10^3/uL (4.0-11.0)
[2023-07-19 10:43] LABS: Estimated Average Glucose 128 mg/dL; Glycohemoglobin A1C 6.1 % (4.5-6.2)
[2023-07-19 11:02] LABS: Alanine Aminotransferase 18 U/L (14-59); Albumin Globulin Ratio 0.8; Albumin Level 3.3 g/dL (3.4-5.0); Alkaline Phosphatase 65 U/L (46-116); Anion Gap 12.3; Aspartate Amino Transferase 16 U/L (15-37); Bilirubin Total 0.4 mg/dL (0.2-1.0); Calcium 9.4 mg/dL (8.5-10.1); Carbon Dioxide 29.6 mmol/L (21.0-32.0); Chloride 104 mmol/L (98-107); Cholesterol 157 mg/dL (<=200); Estimated GFR (African America >60 (>=60); Estimated GFR (Non-African Ame >60 (>=60); Free T3 2.34 pg/mL (2.18-3.98); Globulin 3.9 g/dL; Glucose 115 mg/dL (74-106); HDL Cholesterol 80 mg/dL (40-60); Potassium 3.9 mmol/L (3.5-5.1); Sodium 142 mmol/L (136-145); Thyroid Stimulating Hormone 2.146 uIU/mL (0.358-3.740); Total Protein 7.2 g/dL (6.4-8.2); Triglycerides 77 mg/dL (<=150); VLDL CHOLESTEROL 15.4 mg/dL
== END 2023-07-19 08:48 | disposition home or self-care (01) ==
LOC: LAB 08:49
PROVIDERS: PCP Family Medicine; Visit Provider Family Medicine
DX: E78.00 Pure hypercholesterolemia, unspecified (principal); E11.9 Type 2 diabetes mellitus without complications; I10 Essential (primary) hypertension; D64.9 Anemia, unspecified; E55.9 Vitamin D deficiency, unspecified
CPT/HCPCS: 36415; 80053; 80061; 82306; 83036; 83540; 84436; 84443; 84481; 85025

== ENCOUNTER 2023-11-16 15:57 | Outpatient (REF) | payer MEDICARE, OTHER, SELFPAY ==
--- OUTSIDE RECORDS SUMMARY | 2023-11-16 16:09 | XMS_ITS | CCD ---
Author Organization [facility] Care Team Providers Care Trousseau Consultant Name Role Phone Jennifer Shannon Primary Care Physician DE ., DR RODRIGUEZ Consulting Unavailable DEVINE ., DR PACK Attending Unavailable DEVINE ., DR PACK Admitting Unavailable HOY ., DR RODRIGUEZ Primary Care Unavailable ABERDEEN, DR SHEMAR Granados Consulting Unavailable HOY ., DR RODRIGUEZ Primary [...] [penicillin] Drug Allergy Eruption of skin (disorder) [facility] General Surgery [place] (2 sources) Penicillins; Translations: [PENICILLINS] Drug allergy (disorder) 4 [facility] Rep[facility] (1 source) No Known Medication Allergies; Translations: [No Known Medication Allergies] Propensity to adverse reactions (disorder) [facility] Repository Medications Current Medications Medication Drug Class(es) [...] day(s), # 180 tab(s), Refills(s) 3, Pharmacy: [facility]/pharmacy #[id number], 161.3, cm, 04/21/21 14:11:00 EST, Height/Length Dosing, 81.8, kg, 04/21/21 14:11:00 EST, Weight Dosing Start Date: 09/16/21 Stop Date: 09/11/22 Status: Ordered Problems Active Problems Problem Classification Problem Date Documented Da te Episodic/Chronic Coronary atherosclerosis and other heart disease (4 sources) Coronary arteriosclerosis; Translations: [Atherosclerotic heart disease of [place] coronary artery without angina pectoris] Onset: 01-22-2022 [...] Dr. Shannon's office made aware also. Normal [facility] Office Visiton 05-09-2023 Follow-up visit [id number] Kelin Rosenberg 1940 F Date Provider Department Center 05/09/2023 271-GARIMA KELLY [facility] Family History Problem Relation Age of Onset Diabetes Mother Coronary artery disease Father Family Status - Relation Status Age at Mother Father Level of Service:48222 HI OFFICE/OUTPATIENT ESTABLISHED MOD MDM 30 MIN Normal [facility] Patient Letter FTMCon 2022 Patient Letter [facility] February 07, 2023 KELIN ROSENBERG [address] [place] [address] : 1940 Dear Kelin, This is a reminder that you are due for an appointment with [facility]. Please contact our office at [phone] to schedule your 10 year colon recall Thank you, [facility] Reminderson 02-07-2023 Reminders -- From: Isabel Dale MA To: Isabel Dale MA; Sent: 02/07/2023 10:24:57 EDT Show up: 02/07/2023 10:25:00 EDT Subject: colon recall Reminder Message [address] Esteban 02/16/13 first recall letter sent Normal [facility] LIPID PROFILEon 04-28-2022 CHOL-HDL RATIO NORM SEE BELOW Normal [facility] Comment on above: Result Comment: 3.3 - 4.4 LOW RISK 4.4 - 7.1 AVERAGE RISK 7.1 - 11.0 MODERATE RISK >11.0 HIGH RISK Performed By: #### L IPID, LIVER #### [facility] [address] [address] [address] Dora Mora Cholesterol [Mass/Vol] 199 mg/dL Normal <=200 [facility] Comment on above: Performed By: #### L IPID, LIVER #### [facility] [address] [address] [address] Dora Mora Cholesterol in HDL [Mass/Vol] 75 mg/dL Critically high 40-60 [facility] Comment on above: Performed By: #### L IPID, LIVER #### [facility] [address] [address] [address] Dora Mora Cholesterol in LDL [Mass/Vol] 86.2 mg/dL Normal [facility] Comment on above: Performed By: #### L IPID, LIVER #### [facility] [address] [address] [address] Dora Mora Cholesterol.total/Cho lesterol in HDL [Mass ratio] 2.7 {ratio} Normal [facility] Comment on above: Performed By: #### L IPID, LIVER #### [facility] [address] [address] [address] Dora Mora HDL NORMAL > or = 60 mg/dl - LOW CARDIOVASCULAR RISK <40 mg/dl - HIGH CARDIOVASCULAR RISK Normal [facility] Comment on above: Performed By: #### L IPID, LIVER #### [facility] [address] [address] [address] Dora Mora LDL CALC NORMAL SEE BELOW Normal [facility] Comment on above: Result Comment: <100 mg/dl OPTIMAL 100 - 129 mg/dl NEAR OR ABOVE OPTIMAL 130 - 159 mg/dl BORDERLINE HIGH 160 - 189 mg/dl HIGH >190 mg/dl VERY HIGH Performed By: #### L IPID, LIVER #### [facility] [address] [place] [address] Dr. Dora Mora Triglyceride [Mass/Vol] 189 mg/dL Critically high <=150 [facility] Comment on above: Performed By: #### L IPID, LIVER #### [facility] [address] [place] [address] Dr. Dora Mora VLDL CALC 37.8 mg/dL Normal [facility] Comment on above: Performed By: #### L IPID, LIVER #### [facility] [address] [place] [address] Dr. Dora Mora LIVER PROFILEon 04-28-2022 Albumin [Mass/Vol] 3.7 g/dL Normal 3.4-5.0 [facility] Comment on above: Performed By: #### L IPID, LIVER #### [facility] [address] [place] [address] Dr. Dora Mora Albumin/Globulin [Mass ratio] 1.0 {ratio} Normal [facility] Comment on above: Performed By: #### L IPID, LIVER #### [facility] [address] [place] [address] Dr. Dora Mora ALP [Catalytic activity/Vol] 62 U/L Normal 46-116 [facility] Comment on above: Performed By: #### L IPID, LIVER #### [facility] [address] [place] [address] Dr. Dora Mora ALT [Catalytic activity/Vol] 18 U/L Normal 14-59 [facility] Comment on above: Performed By: #### L IPID, LIVER #### [facility] [address] [place] [address] Dr. Dora Mora AST [Catalytic activity/Vol] 19 U/L Normal 15-37 [facility] Comment on above: Performed By: #### L IPID, LIVER #### [facility] [address] [place] [address] Dr. Dora Mora BILI, CONJUGATED 0.1 mg/dL Normal 0.0-0.2 [facility] Comment on above: Performed By: #### L IPID, LIVER #### [facility] [address] [place] [address] Dr. Dora Mora Bilirubin [Mass/Vol] 0.5 mg/dL Normal 0.2-1.0 [facility] Comment on above: Performed By: #### L IPID, LIVER #### [facility] [address] [place] [address] Dr. Dora Mora Globulin (S) [Mass/Vol] 3.7 g/dL Normal [facility] Comment on above: Performed By: #### L IPID, LIVER #### [facility] [address] [place] [address] Dr. Dora Mora Protein [Mass/Vol] 7.4 g/dL Normal 6.4-8.2 [facility] Comment on above: Performed By: #### L IPID, LIVER #### [facility] [address] [place] [address] Dr. Dora Mora XR KUB 1 VIEWon [...] SHEMAR ARELLANO Date: 2022-03-22 12:08 Normal [facility] INSULINon 01-21-2022 Insulin 16.5 uIU/mL Normal 2.6-24.9 [facility] Comment on above: Performed By: #### I NSULIN #### [facility] [address] [place] [address] Dr. Dora Mora CBC AUTO DIFFon 01-20-2022 BASO # 0.0 103/ul Normal 0.0-0.1 [facility] Comment on above: Performed By: #### L IPID, LIVER #### [facility] [address] [place] [address] Dr. Dora Mora Basophils/100 WBC (Bld) 0.5 % Normal 0.2-2.0 [facility] Comment on above: Performed By: #### L IPID, LIVER #### [facility] [address] [place] [address] Dr. Dora Mora EO # 0.2 103/ul Normal 0.0-0.7 [facility] Comment on above: Performed By: #### L IPID, LIVER #### [facility] [address] [place] [address] Dr. Dora Mora Eosinophils/100 WBC (Bld) 2.4 % Normal 0.9-7.0 [facility] Comment on above: Performed By: #### L IPID, LIVER #### [facility] [address] [place] [address] Dr. Dora Mora Erythrocyte distribution width (RBC) [Ratio] 12.9 % Normal 11.0-15.0 [facility] Comment on above: Performed By: #### L IPID, LIVER #### [facility] [address] [place] [address] Dr. Dora Mora Hematocrit (Bld) [Volume fraction] 39.9 % Normal 36.0-48.0 [facility] Comment on above: Performed By: #### L IPID, LIVER #### [facility] [address] [place] [address] Dr. Dora Mora Hemoglobin (Bld) [Mass/Vol] 13.4 g/dL Normal 12.0-16.0 [facility] Comment on above: Performed By: #### L IPID, LIVER #### [facility] [address] [place] [address] Dr. Dora Mora IG # 0.07 10e3/ul Critically high 0.00-0.03 [facility] Comment on above: Performed By: #### L IPID, LIVER #### [facility] [address] [place] [address] Dr. Dora Mora IG % 0.9 % Critically high 0.0-0.5 [facility] Comment on above: Performed By: #### L IPID, LIVER #### [facility] [address] [place] [address] Dr. Dora Mora LYMPH # 2.5 103/ul Normal 1.2-3.8 [facility] Comment on above: Performed By: #### L IPID, LIVER #### [facility] [address] [place] [address] Dr. Dora Mora Lymphocytes/100 WBC (Bld) 32.4 % Normal 20.5-60.0 [facility] Comment on above: Performed By: #### L IPID, LIVER #### [facility] [address] [place] [address] Dr. Dora Mora MANUAL DIFF REQ NO Normal [facility] Comment on above: Performed By: #### L IPID, LIVER #### [facility] [address] [place] [address] Dr. Dora Mora MCH (RBC) [Entitic mass] 30.1 pg Normal 26.7-34.0 [facility] Comment on above: Performed By: #### L IPID, LIVER #### [facility] [address] [place] [address] Dr. Dora Mora MCHC (RBC) [Mass/Vol] 33.6 g/dL Normal 29.9-35.2 [facility] Comment on above: Performed By: #### L IPID, LIVER #### [facility] [address] [place] [address] Dr. Dora Mora MCV (RBC) [Entitic vol] 89.7 fL Normal 81.0-99.0 [facility] Comment on above: Performed By: #### L IPID, LIVER #### [facility] [address] [place] [address] Dr. Dora Mora MONO # 0.5 103/ul Normal 0.3-0.8 [facility] Comment on above: Performed By: #### L IPID, LIVER #### [facility] [address] [place] [address] Dr. Dora Mora Monocytes/100 WBC (Bld) 6.5 % Normal 1.7-12.0 [facility] Comment on above: Performed By: #### L IPID, LIVER #### [facility] [address] [place] [address] Dr. Dora Mora NEUT # 4.3 103/ul Normal 1.4-6.5 [facility] Comment on above: Performed By: #### L IPID, LIVER #### [facility] [address] [place] [address] Dr. Dora Mora Neutrophils/100 WBC (Bld) 57.3 % Normal 43.0-75.0 [facility] Comment on above: Performed By: #### L IPID, LIVER #### [facility] [address] [place] [address] Dr. Dora Mora Platelet mean volume (Bld) [Entitic vol] 9.2 fL Critically low 9.5-13.5 [facility] Comment on above: Performed By: #### L IPID, LIVER #### [facility] [address] [place] [address] Dr. Dora Mora PLT 261 103/ul Normal 150-450 [facility] Comment on above: Performed By: #### L IPID, LIVER #### [facility] [address] [place] [address] Dr. Dora Mora RBC 4.45 106/ul Normal 4.20-5.40 [facility] Comment on above: Performed By: #### L IPID, LIVER #### [facility] [address] [place] [address] Dr. Dora Mora WBC 7.6 103/ul Normal 4.0-11.0 [facility] Comment on above: Performed By: #### L IPID, LIVER #### [facility] [address] [place] [address] Dr. Dora Mora FREE THYROXINE INDEX T7on FTI 2.93 Normal 1.30-4.50 [facility] Comment on above: Performed By: #### C MP, TSH, T7, LIPID #### [facility] [address] [address] [address] Dora Mora T3U 38.0 % Normal 30.0-39.0 [facility] Comment on above: Performed By: #### C MP, TSH, T7, LIPID #### [facility] [address] [address] [address] Dora Mora T4 [Mass/Vol] 7.70 ug/dL Normal 4.80-13.90 [facility] Comment on above: Performed By: #### C MP, TSH, T7, LIPID #### [facility] [address] [address] [address] Dora Mora GLYCOHEMOGLOBIN A1Con 2021 ADA RECOMMENDATION SEE BELOW Normal [facility] Comment on above: Result Comment: ADA RECOMMENDED LIMIT 4.0 - 6.0 ADA THERAPEUTIC TARGET < 7.0 ACTION SUGGESTED > 7.0 Performed By: #### A 1C #### [facility] [address] [place] [address] Dr. Dora Mora Glucose [Mass/Vol] 148 mg/dL Normal [facility] Comment on above: Performed By: #### A 1C #### [facility] [address] [address] [address] Dora Mora HbA1c (Bld) [Mass fraction] 6.8 % Critically high 4.5-6.2 [facility] Comment on above: Performed By: #### A 1C #### [facility] [address] [place] [address] Dr. Dora Mora IRONon 01-20-2022 Iron [Mass/Vol] 88.0 ug/dL Normal 50.0-170.0 [facility] Comment on above: Performed By: #### I JOCELYNN, VITAD #### [facility] [address] [place] [address] Dr. Dora Mora LIPID PROFILEon 01-20-2022 CHOL-HDL RATIO NORM SEE BELOW Normal [facility] Comment on above: Result Comment: 3.3 - 4.4 LOW RISK 4.4 - 7.1 AVERAGE RISK 7.1 - 11.0 MODERATE RISK >11.0 HIGH RISK Performed By: #### L IPID, LIVER #### [facility] [address] [address] [address] Dora Mora Cholesterol [Mass/Vol] 180 mg/dL Normal <=200 [facility] Comment on above: Performed By: #### L IPID, LIVER #### [facility] [address] [address] [address] Dora Mora Cholesterol in HDL [Mass/Vol] 64 mg/dL Critically high 40-60 [facility] Comment on above: Performed By: #### L IPID, LIVER #### [facility] [address] [address] [address] Dora Mora Cholesterol in LDL [Mass/Vol] 55.4 mg/dL Normal [facility] Comment on above: Performed By: #### L IPID, LIVER #### [facility] [address] [address] [address] Dora Mora Cholesterol.total/Cho lesterol in HDL [Mass ratio] 2.8 {ratio} Normal [facility] Comment on above: Performed By: #### L IPID, LIVER #### [facility] [address] [address] [address] Dora Mora HDL NORMAL > or = 60 mg/dl - LOW CARDIOVASCULAR RISK <40 mg/dl - HIGH CARDIOVASCULAR RISK Normal [facility] Comment on above: Performed By: #### L IPID, LIVER #### [facility] [address] [address] [address] Dora Mora LDL CALC NORMAL SEE BELOW Normal [facility] Comment on above: Result Comment: <100 mg/dl OPTIMAL 100 - 129 mg/dl NEAR OR ABOVE OPTIMAL 130 - 159 mg/dl BORDERLINE HIGH 160 - 189 mg/dl HIGH >190 mg/dl VERY HIGH Performed By: #### L IPID, LIVER #### [facility] [address] [address] [address] Dora Mora Triglyceride [Mass/Vol] 303 mg/dL Critically high <=150 [facility] Comment on above: Performed By: #### L IPID, LIVER #### [facility] [address] [address] [address] Dora Mora VLDL CALC 60.6 mg/dL Normal [facility] Comment on above: Performed By: #### L IPID, LIVER #### [facility] [address] [address] [address] Dora Mora PROF 14(COMP METB)on 022 Albumin [Mass/Vol] 3.4 g/dL Normal 3.4-5.0 [facility] Comment on above: Performed By: #### C MP, TSH, T7, LIPID #### [facility] [address] [place] [address] Dr. Dora Mora Albumin/Globulin [Mass ratio] 0.9 {ratio} Normal [facility] Comment on above: Performed By: #### C MP, TSH, T7, LIPID #### [facility] [address] [place] [address] Dr. Dora Mora ALP [Catalytic activity/Vol] 61 U/L Normal 46-116 [facility] Comment on above: Performed By: #### C MP, TSH, T7, LIPID #### [facility] [address] [place] [address] Dr. Dora Mora ALT [Catalytic activity/Vol] 22 U/L Normal 14-59 [facility] Comment on above: Performed By: #### C MP, TSH, T7, LIPID #### [facility] [address] [address] [address] Dora Mora Anion gap [Moles/Vol] 10.9 mmol/L Normal [facility] Comment on above: Performed By: #### C MP, TSH, T7, LIPID #### [facility] [address] [address] [address] Dora Mora AST [Catalytic activity/Vol] 13 U/L Critically low 15-37 [facility] [place] Comment on above: Performed By: #### C MP, TSH, T7, LIPID #### [facility] [address] [address] [address] Dora Mora Bilirubin [Mass/Vol] 0.6 mg/dL Normal 0.2-1.0 [facility] Comment on above: Performed By: #### C MP, TSH, T7, LIPID #### [facility] [address] [place] [address] Dr. Dora Mora Calcium [Mass/Vol] 9.4 mg/dL Normal 8.5-10.1 [facility] Comment on above: Performed By: #### C MP, TSH, T7, LIPID #### [facility] [address] [place] [address] Dr. Dora Mora Chloride [Moles/Vol] 103 mmol/L Normal 98-107 [facility] Comment on above: Performed By: #### C MP, TSH, T7, LIPID #### [facility] [address] [place] [address] Dr. Dora Mora CO2 [Moles/Vol] 28.6 mmol/L Normal 21.0-32.0 [facility] Comment on above: Performed By: #### C MP, TSH, T7, LIPID #### [facility] [address] [place] [address] Dr. Dora Mora Creatinine [Mass/Vol] 0.86 mg/dL Normal 0.55-1.02 [facility] Comment on above: Performed By: #### C MP, TSH, T7, LIPID #### [facility] [address] [place] [address] Dr. Dora Mora EGFR-AF NIUEAN >60 Normal >=60 [facility] Comment on above: Performed By: #### C MP, TSH, T7, LIPID #### [facility] [address] [place] [address] Dr. Dora Mora EGFR-NON AF NIUEAN >60 Normal >=60 [facility] Comment on above: Performed By: #### C MP, TSH, T7, LIPID #### [facility] [address] [place] [address] Dr. Dora Mora Globulin (S) [Mass/Vol] 3.6 g/dL Normal [facility] Comment on above: Performed By: #### C MP, TSH, T7, LIPID #### [facility] [address] [place] [address] Dr. Dora Mora Glucose [Mass/Vol] 167 mg/dL Critically high 74-106 [facility] Comment on above: Performed By: #### C MP, TSH, T7, LIPID #### [facility] [address] [place] [address] Dr. Dora Mora Potassium [Moles/Vol] 4.5 mmol/L Normal 3.5-5.1 [facility] Comment on above: Performed By: #### C MP, TSH, T7, LIPID #### [facility] [address] [place] [address] Dr. Dora Mora Protein [Mass/Vol] 7.0 g/dL Normal 6.4-8.2 [facility] Comment on above: Performed By: #### C MP, TSH, T7, LIPID #### [facility] [address] [place] [address] Dr. Dora Mora Sodium [Moles/Vol] 138 mmol/L Normal 136-145 [facility] Comment on above: Performed By: #### C MP, TSH, T7, LIPID #### [facility] [address] [place] [address] Dr. Dora Mora Urea nitrogen [Mass/Vol] 20.0 mg/dL Critically high 7.0-18.0 [facility] Comment on above: Performed By: #### C MP, TSH, T7, LIPID #### [facility] [address] [place] [address] Dr. Dora Mora Urea nitrogen/Creatinine [Mass ratio] 23.3 mg/mg Normal [facility] Comment on above: Performed By: #### C MP, TSH, T7, LIPID #### [facility] [address] [place] [address] Dr. Dora Mora TSHon 01-20-2022 TSH 1.657 uIU/mL Normal 0.358-3.740 [facility] Comment on above: Performed By: #### C MP, TSH, T7, LIPID #### [facility] [address] [place] [address] Dr. Dora Mora VITAMIN D 25 OHon 01-20-2022 VIT D 25-OH 96.7 ng/mL Normal [facility] Comment on above: Performed By: #### I JOCELYNN, VITAD #### [facility] [address] [place], [place] [address] Dr. Dora Mora VIT D RANGES SEE BELOW Normal [facility] Comment on above: Result Comment: <20 ng/mL Vit D deficient 20 - <30 ng/mL Vit D insufficient 30 - 100 ng/mL Vit D sufficient >100 ng/mL Potential Toxicity Performed By: #### I JOCELYNN VITAD #### [facility] [address] [address] [address] Dora Mora Vital Signs Date Time Vital Sign Value Performing Clinician Faci davy 04-02-2022 08:12-0500 Blood Pressure Location Ruiz DEVINE [facility] 04-02-2022 08:12-0500 Diastolic blood pressure 72 mm[Hg] Ruiz DEVINE [facility] 04-02-2022 08:12-0500 Heart rate 68 /min Ruiz DEVINE [facility] 04-02-2022 08:12-0500 Respiratory rate 16 /min Ruiz DEVINE [facility] 04-02-2022 08:12-0500 Systolic blood pressure 124 mm[Hg] Ruiz DEVINE [facility] Encounters Encounter Date Encounter Type Care Provider Facility Start: 04-02-2024 ambulatory Ruiz Howei ty:[facility] [place] Start: 05-09-2023 End: 05-09-2023 ambulatory GARIMA [facility] Start: 02-07-2023 ambulatory Quique Sebastian Facility:[facility] Start: 06-09-2022 End: 07-07-[address] JENNIFER SHANNON . Facility: Start: 04-28-2022 End: 04-29-[address] JENNIFER SHANNON . Facility:[facility] Start: 04-02-2022 End: 04-02-2022 Patient encounter procedure Ruiz [facility] [facility] Start: 03-22-2022 End: 03-23-[address] JENNIFER SHANNON . Facility:[facility] Start: 01-20-2022 End: 01-21-[address] JENNIFER SHANNON . Facility:[facility] Procedures Date Procedure Procedure Detail Performing Clinician [...] Provider Eliane santiago 04-18-2020 SARS-CoV-2 (COVID-19 ) [id number] vaccine Ruiz DEVINE [facility] Comment on above: Result Comment: pt d oes not have her card and can not remember the dates Payers Date Payer Category Payer Medicare [id number] 1959 Private Health Insurance [id number] 1940 Unknown [id number] [id number] 1940 Unknown [id number] [id number] [id number] 1940 Unknown [id number] [id number] [id number] 1940 Unknown [id number] [id number] [id number] 1940 Unknown [id number] [id number] Social History Date Type Detail Facility Start: 04-21-2021 Tobacco smoking status Never s moked tobacco (finding) [facility] Tobacco smoking status Never Brighte [facility] Sex Assigned At Female [facility] Functional Status Date Assessment Result Facility 04-02-2022 Functional Status N/A [facility] Progress note 05-09-2023 Note Date & Type Note Facility 05-09-2023 Note [facility] Cardiology Clinic Note Chief Complaint: Patient here [...] Return to clini (more content not included)... [facility] Hospital Discharge instructions 04-02-2022 Note Date & Type Note Facility 04-02-2022 Hospital Discharg e instructions Patient Education 04/02/2022 08:53:58 Kidney Stones, [id number] Kidney Stones Kidney stones are rock-like masses [...] Follow these instructions at home: Medicines Take [id number] and prescription medicines only as told by [...] 09/20/2008 Document Revised: 08/21/2019 Document Reviewed: 08/21/2019 [employer] Patient Education 2020 [email or web address]. Follow Up Care 03/30/2021 09:32:03 With:SYBIL RODRIGUEZ, Ruiz Rangel, URL Address: [address] [place], [place] [address] [address]- When: Unknown [facility] Evaluation + Plan note Note Date & Type Note Facility Evaluation + Plan note No data available for this section [facility] Progress note Note Date & Type Note Facility Progress note No data available for this section [facility] Summary Purpose Family History No Family History Records FoundNo Family History Records FoundNo Family History Records Found Advance Directives No Advanced Directives Records FoundNo Advanced Directives Records FoundNo Advanced Directives Records Found Additional Source Comments Patient Care team informatio n (unrecognized section and content) Personnel Name: Jennifer Shannon MD Address: Address: [address] [place] [id number] INFORMATION SOURCE (unrecogn ized section and content) DATE CREATED AUTHOR 07/24/2022 [facility] DATE CREATED AUTHOR AUTHOR'S ORGANIZ ATION 05/26/2023 [facility] DATE CREATED AUTHOR AUTHOR'S ORGANIZ ATION 06/21/2023 [facility] FOR RECORDS PERTAINING TO PATIENTS WHO ARE [...] BE BASED ON THE PRIMARY CLINICAL RECORDS. [facility] [employer] provides no warranty or guarantee of the accuracy or completeness of information in this document.
[2023-11-16 16:20] LABS: Internal Control Within Normal Limits; SARS-CoV-2 Ag POSITIVE (NEGATIVE)
== END 2023-11-16 15:58 | disposition home or self-care (01) ==
LOC: LAB 15:57
PROVIDERS: PCP Family Medicine; Visit Provider Family Medicine
DX: U07.1 COVID-19 (principal); J01.90 Acute sinusitis, unspecified
CPT/HCPCS: 87811

== ENCOUNTER 2023-12-11 16:39 | Observation (INO) | payer MEDICARE, OTHER, SELFPAY ==
[2023-12-11] VITALS (12 sets, daily range): BP systolic 135–171; BP diastolic 67–97; PULSE 52–73; TEMP 36.1–36.8; O2SAT 95–99; BMI 26.2; BMI 27.3
--- NOTE | 2023-12-11 16:39 | CT_ITS ---
The [address] [address] Patient Name: GREG TODD MRN: [id number] date: 1940 Sex: F Assigned Patient Location: ER Current Patient Location: ER Accession/Order Number: [id number] Exam Date: 12/11/2023 16:38 Report Date: 12/11/2023 19:17 At the request of: [facility] Procedure: CT cervical spine wo con EXAM: CT cervical spine wo con HISTORY: closed head injury COMPARISON: None. TECHNIQUE: CT cervical spine noncontrast. Axial scans with reformatted coronal and sagittal images. Individualized dose reduction used for this exam. FINDINGS: There for fracture or subluxation. Moderate disc space narrowing C5-6 C6-7. Small to moderate ossified C5-6, large osteophyte C6-7 posteriorly probable canal stenosis. Bony foraminal stenosis moderate to severe C5-6 bilateral and C6-7 on the left. Multilevel facet arthropathy.. Bilateral carotid artery calcification. No soft tissue fluid collection or hematoma. Prominent thyroid nodule with calcification lower neck on the left 1.9 cm AP by 2 cm transverse by 2.6 cm craniocaudad. Upper chest lung apices unremarkable. CT/CT cervical spine wo con IMPRESSION: 1. Negative for fracture or subluxation. 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 2. Left thyroid nodule 1.9 x 2 x 2.6 cm. Could be assessed with ultrasound as an outpatient if felt to be indicated. Electronically authenticated by: GAURI BAEZA Date: 12/11/2023 19:17
--- NOTE | 2023-12-11 16:39 | CT_ITS ---
The [address] [address] Patient Name: GREG TODD MRN: [id number] date: 1940 Sex: F Assigned Patient Location: ER Current Patient Location: ER Accession/Order Number: [id number] Exam Date: 12/11/2023 16:38 Report Date: 12/11/2023 18:32 At the request of: [facility] Procedure: CT head/brain wo con EXAM: CT head/brain wo con HISTORY: head injury, confusion COMPARISON: None. TECHNIQUE: Head CT noncontrast. Axial scans with reformatted coronal and sagittal images. Individualized dose reduction used for this exam. FINDINGS: Aside increase attenuation suggesting contusion seen in the right cerebral hemisphere near the vertex in the right posterior parietal area near the occipital horn. No associated adjacent mass effect. No other evidence of intracranial hemorrhage, no ventricular hemorrhage or subdural hematoma. No focal brain mass or edema. Diffuse atrophy as evidenced by prominent CSF extra-axial spaces, ventricles and fissures. No mass effect or midline shift. Graft no bony abnormality fracture or focal bone lesion. No fluid seen in the visualized mastoid, middle ear cavities or sinuses. CT/CT head/brain wo con IMPRESSION: Several small foci of increased attenuation consistent with contusions right cerebral hemisphere near the vertex and right posterior parietal area. No associated adjacent mass effect. No other intracranial hemorrhage, specifically no ventricular hemorrhage or subdural hematoma. Diffuse atrophy. No mass effect or midline shift. Electronically authenticated by: GAURI BAEZA Date: 12/11/2023 18:32
--- NOTE | 2023-12-11 16:40 | XR_ITS ---
The [address] [address] Patient Name: GREG TODD MRN: [id number] date: 1940 Sex: F Assigned Patient Location: ER Current Patient Location: ED.MAIN Accession/Order Number: [id number] Exam Date: 12/11/2023 16:55 Report Date: 12/11/2023 17:57 At the request of: [facility] Procedure: XR chest 1V EXAM: XR chest 1V HISTORY: fall COMPARISON: None. TECHNIQUE: AP upright chest x-ray. FINDINGS: Mildly prominent lung markings without focal infiltrate, consolidation or lung contusion. Heart size normal for technique. Sternotomy wires. No pleural effusion or pneumothorax. Slight elevation right diaphragm. No displaced fracture seen. XR/XR chest 1V IMPRESSION: Mildly prominent lung markings probably chronic. No definite acute abnormality noted. No lung injury, pneumothorax or pleural effusion. Electronically authenticated by: GAURI BAEZA Date: 12/11/2023 17:57
--- NOTE | 2023-12-11 16:40 | ECG_ITS ---
The 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
--- NOTE | 2023-12-11 16:42 | ED.GENADUL1 ---
HPI HPI - General Adult General Chief complaint: Fall Stated complaint: FALL Time Seen by Provider: 12/11/23 16:39 Source: patient and family Source information: EMS Mode of arrival: ambulance Limitations: altered mental status History of Present Illness HPI narrative: Patient is an 83-year-old female presents to the ER for evaluation of head injury. Patient is alert and oriented to her name and date of . She does not know her recent medications or the month readily. She does note that she went to [facility] this morning. Patient does not recall fall, patient alert when found by family, they noted they heard the fall and went to check on the patient. Patient appears pleasantly confused, she reports no pain such as headache neck pain or abdominal pain. Patient taken from EMS directly to CT on arrival with concern of patient taking blood thinners. EMS then reported patient only takes aspirin daily. Limited history with patient's mentation. Her GCS is 15 Location: Reports head Related Data Allergies Allergy/AdvReac Type Severity Reaction Status Date / Time penicillins Allergy Unknown Unknown Uncoded 12/11/23 17:02 Opioid HPI Opioid Management Most Recent Opioid Data: No Data to Display Review of Systems ROS Status of ROS unobtainable due to mental status Exam Narrative Exam Narrative: Nurses note and vital signs reviewed and patient is not hypoxic. General: The patient appears well and in no apparent distress. Patient is resting comfortably on cart. GCS = 15. Skin: Warm, dry, no pallor noted. No evidence of rash or skin injury. Head: Normocephalic, atraumatic Neck: Supple, trachea mid-line, no tenderness, no lymphadenopathy. Full ROM and no cervical spinal tenderness. The patient has no step-offs or crepitus noted Eyes: PERRLA, EOMI ENT: TM's clear, no hemotympanum detected, no blood in posterior oropharynx Cardiovascular: Regular Rate and Rhythm Respiratory: Patient is in no distress, no accessory muscle use, lungs are clear to auscultation, no wheezing, rales or rhonchi Chest Wall: no tenderness, no flail chest, contusion, abrasion, or signs of trauma. Back: Back has no evidence of trauma, including contusion, abrasion, swelling or ecchymosis. The patient had no evidence of step-offs or creptitace noted. No tenderness to palpation. Negative straight leg raise bilaterally. Musculoskeletal: normal ROM, no tenderness, no swelling. Pulses at femoral, DP, PT, and popiteal were 2+ bilaterally. Moves all four extremities in all modalities with 5/5 strength. GI: Normal bowel sounds, no tenderness to palpation, no masses appreciated. No rebound, guarding, or rigidity noted. Neurological: A&O person and date of . Normal equal reporting analyst strength, normal finger to nose, normal speech, normal coordination, normal motor, normal sensory. Psychiatric: Cooperative Constitutional Vital Signs, click to edit/add: Last Vital Signs Temp 97.5 F L 12/11/23 16:59 Pulse 56 L 12/11/23 18:10 Resp 15 12/11/23 18:10 BP 166/88 H 12/11/23 18:00 Pulse Ox 99 12/11/23 18:10 O2 Del Method Room Air 12/11/23 16:59 Course Vital Signs Vital signs: Vital Signs Temperature 97.5 F L 12/11/23 16:59 Pulse Rate 52 L 12/11/23 16:59 Respiratory Rate 16 12/11/23 16:59 Blood Pressure 171/68 H 12/11/23 16:59 Pulse Oximetry 98 12/11/23 16:59 Oxygen Delivery Method Room Air 12/11/23 16:59 Temperature 97.5 F L 12/11/23 16:59 Pulse Rate 56 L 12/11/23 18:10 Respiratory Rate 15 12/11/23 18:10 Blood Pressure 166/88 H 12/11/23 18:00 Pulse Oximetry 99 12/11/23 18:10 Oxygen Delivery Method Room Air 12/11/23 16:59 Medical Decision Making [facility] Narrative Medical decision making narrative: Presents with fall, unwitnessed alert when found by family who heard the fall and patient with new onset confused. Evaluated multiple times, reports no complaint. Family was kept up-to-date that we are waiting on CT interpretations from radiologist. There was delay in getting these read to read. Patient ambulated to the bathroom well with no ataxia. Conversation between patient and family at bedside and she does not remember talking with EMS before coming to the hospital. She does show some symptoms of a concussion. We discussed the CT report showing some brain contusions. Given her age and mentation recommend observing overnight with postconcussive syndrome. We also do not have a definitive as to why she fell but current monitor and labs within normal limits. Patient agreeable to stay along with her Case was discussed with Hospitalist Jacquelyn- PCP is Dr. Shannon Lab Data Lab results reviewed: Yes I reviewed the patient's lab results Labs: Lab Results 12/11/23 12/11/23 Range/Units 16:43 18:00 WBC 5.8 (4.0-11.0) 10^3/uL RBC 4.18 L (4.20-5.40) 10^6/uL Hgb 12.7 (12.0-16.0) g/dL Hct 38.4 (36.0-48.0) % MCV 91.9 (81.0-99.0) fL MCH 30.4 (26.7-34.0) pg MCHC 33.1 (29.9-35.2) g/dL RDW 13.2 (11.0-15.0) % Plt Count 228 (150-450) 10^3/uL MPV 9.5 (9.5-13.5) fL Neut % (Auto) 47.0 (43.0-75.0) % Lymph % (Auto) 37.7 (20.5-60.0) % [place] % (Auto) 8.5 (1.7-12.0) % Eos % (Auto) 6.1 (0.9-7.0) % Baso % (Auto) 0.5 (0.2-2.0) % Neut # (Auto) 2.7 (1.4-6.5) 10^3/uL Lymph # (Auto) 2.2 (1.2-3.8) 10^3/uL [place] # (Auto) 0.5 (0.3-0.8) 10^3/uL Eos # (Auto) 0.4 (0.0-0.7) 10^3/uL Baso # (Auto) 0.0 (0.0-0.1) 10^3/uL Abs Immat Gran (auto) 0.01 (0.00-0.03) 10^3/uL Imm/Tot Granulo (auto) 0.2 (0.0-0.5) % PT 9.9 (9.0-11.6) sec INR 0.93 APTT 24.5 (22.3-36.2) sec Sodium 142 (136-145) mmol/L Potassium 4.3 (3.5-5.1) mmol/L Chloride 105 (98-107) mmol/L Carbon Dioxide 28.2 (21.0-32.0) mmol/L Anion Gap 13.1 BUN 22.0 H (7.0-18.0) mg/dL Creatinine 0.71 (0.55-1.02) mg/dL Est GFR ( Amer) >60 (>=60) Est GFR (Non-Af Amer) >60 (>=60) BUN/Creatinine Ratio 31.0 Glucose 112 H (74-106) mg/dL Calcium 9.4 (8.5-10.1) mg/dL Total Bilirubin 0.4 (0.2-1.0) mg/dL AST 23 (15-37) U/L ALT 23 (14-59) U/L Alkaline Phosphatase 57 (46-116) U/L Troponin I High Sens 8.4 (4.0-51.3) pg/mL Total Protein 7.1 (6.4-8.2) g/dL Albumin 3.4 (3.4-5.0) g/dL Globulin 3.7 g/dL Albumin/Globulin Ratio 0.9 Urine Color Yellow (YELLOW) Urine Clarity Clear (CLEAR) Urine pH 6.0 (5.0-9.0) Ur Specific [place] 1.025 (1.005-1.025) Urine Protein Negative (NEG/TRACE) mg/dL Urine Glucose (UA) Negative (NEGATIVE) mg/dL Urine Ketones Trace A (NEGATIVE) mg/dL Urine Occult Blood Negative (NEGATIVE) Urine Nitrite Negative (NEGATIVE) Urine Bilirubin Negative (NEGATIVE) Urine Urobilinogen 0.2 (0.2-1.0) EU/dL Ur Leukocyte Esterase Negative (NEGATIVE) Imaging Data CT scan - head: Radiologist's impression: ITS Impressions Cervical Spine CT 12/11/23 16:39 IMPRESSION: 1. Negative for fracture or subluxation. 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 2. Left thyroid nodule 1.9 x 2 x 2.6 cm. Could be assessed with ultrasound as an outpatient if felt to be indicated. Electronically authenticated by: GAURI BAEZA Date: 12/11/2023 19:[address] 12/11/23 16:39 IMPRESSION: Several small foci of increased attenuation consistent with contusions right cerebral hemisphere near the vertex and right posterior parietal area. No associated adjacent mass effect. No other intracranial hemorrhage, specifically no ventricular hemorrhage or subdural hematoma. Diffuse atrophy. No mass effect or midline shift. Electronically authenticated by: GAURI BAEZA Date: 12/11/2023 18:32 Chest X-Ray 12/11/23 16:40 IMPRESSION: Mildly prominent lung markings probably chronic. No definite acute abnormality noted. No lung injury, pneumothorax or pleural effusion. Electronically authenticated by: GAURI BAEZA Date: 12/11/2023 17:57 ECG Data Attestation: I personally reviewed and interpreted this ECG as follows: Interpretation: EKG interpretation: Emergency Department physician interpretation, normal sinus bradycardia 49, , no ST segment elevation, normal axis. Discharge Plan Discharge Chief Complaint: Fall Clinical Impression: Closed head injury, Post concussive syndrome Patient Disposition: Admitted as Observation Time of Disposition Decision: 19:36 Condition: Good Print Language: Frisian Referrals: Ben Shannon MD [Primary Care Provider] - 1 week
--- OUTSIDE RECORDS SUMMARY | 2023-12-11 16:43 | XMS_ITS | CCD ---
Author Organization [facility] Care Team Providers Care Beam Warper Name Role Phone Jennifer Shannon Primary Care Physician [place] ., DR RODRIGUEZ Consulting Unavailable DEVINE ., DR PACK Attending Unavailable DEVINE ., DR PACK Admitting Unavailable HOY ., DR RODRIGUEZ Primary Care Unavailable JOPLIN, DR SHEMAR Granados Consulting Unavailable HOY ., [...] [penicillin] Drug Allergy Eruption of skin (disorder) [facility] [place] (2 sources) Penicillins; Translations: [PENICILLINS] Drug allergy (disorder) 4 [facility] Rep[facility] (1 source) No Known Medication Allergies; Translations: [No Known Medication Allergies] Propensity to adverse reactions (disorder) [facility] Repository Medications Current Medications Medication Drug Class(es) [...] day(s), # 180 tab(s), Refills(s) 3, Pharmacy: [facility]/pharmacy #[id number], 161.3, cm, 04/21/21 14:11:00 EST, Height/Length Dosing, 81.8, kg, 04/21/21 14:11:00 EST, Weight Dosing Start Date: 09/16/21 Stop Date: 09/11/22 Status: Ordered Problems Active Problems Problem Classification Problem Date Documented Da te Episodic/Chronic Coronary atherosclerosis and other heart disease (4 sources) Coronary arteriosclerosis; Translations: [Atherosclerotic heart disease of [place] coronary artery without angina pectoris] Onset: 01-22-2022 [...] Dr. Shannon's office made aware also. Normal [facility] Office Visiton 05-09-2023 Follow-up visit [id number] Kelin Rosenberg 1940 F Date Provider Department Center 05/09/2023 271-GARIMA KELLY [facility] Family History Problem Relation Age of Onset Diabetes Mother Coronary artery disease Father Family Status - Relation Status Age at Mother Father Level of Service:42603 DE OFFICE/OUTPATIENT ESTABLISHED MOD MDM 30 MIN Normal [facility] Patient Letter FTMCon 2022 Patient Letter [facility] February 07, 2023 KELIN ROSENBERG [address] [place] [address] : 1940 Dear Kelin, This is a reminder that you are due for an appointment with [facility]. Please contact our office at [phone] to schedule your 10 year colon recall Thank you, [facility] Reminderson 02-07-2023 Reminders -- From: Isabel Dale MA To: Isabel Dale MA; Sent: 02/07/2023 10:24:57 EDT Show up: 02/07/2023 10:25:00 EDT Subject: colon recall Reminder Message [address] Esteban 02/16/13 first recall letter sent Normal [facility] LIPID PROFILEon 04-28-2022 CHOL-HDL RATIO NORM SEE BELOW Normal [facility] Comment on above: Result Comment: 3.3 - 4.4 LOW RISK 4.4 - 7.1 AVERAGE RISK 7.1 - 11.0 MODERATE RISK >11.0 HIGH RISK Performed By: #### L IPID, LIVER #### [facility] [address] [address] [address] Dora Mora Cholesterol [Mass/Vol] 199 mg/dL Normal <=200 [facility] Comment on above: Performed By: #### L IPID, LIVER #### [facility] [address] [address] [address] Dora Mora Cholesterol in HDL [Mass/Vol] 75 mg/dL Critically high 40-60 [facility] Comment on above: Performed By: #### L IPID, LIVER #### [facility] [address] [address] [address] Dora Mora Cholesterol in LDL [Mass/Vol] 86.2 mg/dL Normal [facility] Comment on above: Performed By: #### L IPID, LIVER #### [facility] [address] [address] [address] Dora Mora Cholesterol.total/Cho lesterol in HDL [Mass ratio] 2.7 {ratio} Normal [facility] Comment on above: Performed By: #### L IPID, LIVER #### [facility] [address] [address] [address] Dora Mora HDL NORMAL > or = 60 mg/dl - LOW CARDIOVASCULAR RISK <40 mg/dl - HIGH CARDIOVASCULAR RISK Normal [facility] Comment on above: Performed By: #### L IPID, LIVER #### [facility] [address] [address] [address] Dora Mora LDL CALC NORMAL SEE BELOW Normal [facility] Comment on above: Result Comment: <100 mg/dl OPTIMAL 100 - 129 mg/dl NEAR OR ABOVE OPTIMAL 130 - 159 mg/dl BORDERLINE HIGH 160 - 189 mg/dl HIGH >190 mg/dl VERY HIGH Performed By: #### L IPID, LIVER #### [facility] [address] [place] [address] Dr. Dora Mora Triglyceride [Mass/Vol] 189 mg/dL Critically high <=150 [facility] Comment on above: Performed By: #### L IPID, LIVER #### [facility] [address] [place] [address] Dr. Dora Mora VLDL CALC 37.8 mg/dL Normal [facility] Comment on above: Performed By: #### L IPID, LIVER #### [facility] [address] [place] [address] Dr. Dora Mora LIVER PROFILEon 04-28-2022 Albumin [Mass/Vol] 3.7 g/dL Normal 3.4-5.0 [facility] Comment on above: Performed By: #### L IPID, LIVER #### [facility] [address] [place] [address] Dr. Dora Mora Albumin/Globulin [Mass ratio] 1.0 {ratio} Normal [facility] Comment on above: Performed By: #### L IPID, LIVER #### [facility] [address] [place] [address] Dr. Dora Mora ALP [Catalytic activity/Vol] 62 U/L Normal 46-116 [facility] Comment on above: Performed By: #### L IPID, LIVER #### [facility] [address] [place] [address] Dr. Dora Mora ALT [Catalytic activity/Vol] 18 U/L Normal 14-59 [facility] Comment on above: Performed By: #### L IPID, LIVER #### [facility] [address] [place] [address] Dr. Dora Mora AST [Catalytic activity/Vol] 19 U/L Normal 15-37 [facility] Comment on above: Performed By: #### L IPID, LIVER #### [facility] [address] [place] [address] Dr. Dora Mora BILI, CONJUGATED 0.1 mg/dL Normal 0.0-0.2 [facility] Comment on above: Performed By: #### L IPID, LIVER #### [facility] [address] [place] [address] Dr. Dora Mora Bilirubin [Mass/Vol] 0.5 mg/dL Normal 0.2-1.0 [facility] Comment on above: Performed By: #### L IPID, LIVER #### [facility] [address] [place] [address] Dr. Dora Mora Globulin (S) [Mass/Vol] 3.7 g/dL Normal [facility] Comment on above: Performed By: #### L IPID, LIVER #### [facility] [address] [place] [address] Dr. Dora Mora Protein [Mass/Vol] 7.4 g/dL Normal 6.4-8.2 [facility] Comment on above: Performed By: #### L IPID, LIVER #### [facility] [address] [place] [address] Dr. Dora Mora XR KUB 1 VIEWon [...] SHEMAR ARELLANO Date: 2022-03-22 12:08 Normal [facility] INSULINon 01-21-2022 Insulin 16.5 uIU/mL Normal 2.6-24.9 [facility] Comment on above: Performed By: #### I NSULIN #### [facility] [address] [place] [address] Dr. Dora Mora CBC AUTO DIFFon 01-20-2022 BASO # 0.0 103/ul Normal 0.0-0.1 [facility] Comment on above: Performed By: #### L IPID, LIVER #### [facility] [address] [place] [address] Dr. Dora Mora Basophils/100 WBC (Bld) 0.5 % Normal 0.2-2.0 [facility] Comment on above: Performed By: #### L IPID, LIVER #### [facility] [address] [place] [address] Dr. Dora Mora EO # 0.2 103/ul Normal 0.0-0.7 [facility] Comment on above: Performed By: #### L IPID, LIVER #### [facility] [address] [place] [address] Dr. Dora Mora Eosinophils/100 WBC (Bld) 2.4 % Normal 0.9-7.0 [facility] Comment on above: Performed By: #### L IPID, LIVER #### [facility] [address] [place] [address] Dr. Dora Mora Erythrocyte distribution width (RBC) [Ratio] 12.9 % Normal 11.0-15.0 [facility] Comment on above: Performed By: #### L IPID, LIVER #### [facility] [address] [place] [address] Dr. Dora Mora Hematocrit (Bld) [Volume fraction] 39.9 % Normal 36.0-48.0 [facility] Comment on above: Performed By: #### L IPID, LIVER #### [facility] [address] [place] [address] Dr. Dora Mora Hemoglobin (Bld) [Mass/Vol] 13.4 g/dL Normal 12.0-16.0 [facility] Comment on above: Performed By: #### L IPID, LIVER #### [facility] [address] [place] [address] Dr. Dora Mora IG # 0.07 10e3/ul Critically high 0.00-0.[address] [facility] Comment on above: Performed By: #### L IPID, LIVER #### [facility] [address] [place] [address] Dr. Dora Mora IG % 0.9 % Critically high 0.0-0.5 [facility] Comment on above: Performed By: #### L IPID, LIVER #### [facility] [address] [place] [address] Dr. Dora Mora LYMPH # 2.5 103/ul Normal 1.2-3.8 [facility] Comment on above: Performed By: #### L IPID, LIVER #### [facility] [address] [place] [address] Dr. Dora Mora Lymphocytes/100 WBC (Bld) 32.4 % Normal 20.5-60.0 [facility] Comment on above: Performed By: #### L IPID, LIVER #### [facility] [address] [place] [address] Dr. Dora Mora MANUAL DIFF REQ NO Normal [facility] Comment on above: Performed By: #### L IPID, LIVER #### [facility] [address] [place] [address] Dr. Dora Mora MCH (RBC) [Entitic mass] 30.1 pg Normal 26.7-34.0 [facility] Comment on above: Performed By: #### L IPID, LIVER #### [facility] [address] [place] [address] Dr. Dora Mora MCHC (RBC) [Mass/Vol] 33.6 g/dL Normal 29.9-35.2 [facility] Comment on above: Performed By: #### L IPID, LIVER #### [facility] [address] [place] [address] Dr. Dora Mora MCV (RBC) [Entitic vol] 89.7 fL Normal 81.0-99.0 [facility] Comment on above: Performed By: #### L IPID, LIVER #### [facility] [address] [place] [address] Dr. Dora Mora MONO # 0.5 103/ul Normal 0.3-0.8 [facility] Comment on above: Performed By: #### L IPID, LIVER #### [facility] [address] [place] [address] Dr. Dora Mora Monocytes/100 WBC (Bld) 6.5 % Normal 1.7-12.0 [facility] Comment on above: Performed By: #### L IPID, LIVER #### [facility] [address] [place] [address] Dr. Dora Mora NEUT # 4.3 103/ul Normal 1.4-6.5 [facility] Comment on above: Performed By: #### L IPID, LIVER #### [facility] [address] [place] [address] Dr. Dora Mora Neutrophils/100 WBC (Bld) 57.3 % Normal 43.0-75.0 [facility] Comment on above: Performed By: #### L IPID, LIVER #### [facility] [address] [place] [address] Dr. Dora Mora Platelet mean volume (Bld) [Entitic vol] 9.2 fL Critically low 9.5-13.5 [facility] Comment on above: Performed By: #### L IPID, LIVER #### [facility] [address] [place] [address] Dr. Doar Mora PLT 261 103/ul Normal 150-450 [facility] Comment on above: Performed By: #### L IPID, LIVER #### [facility] [address] [place] [address] Dr. Dora Mora RBC 4.45 106/ul Normal 4.20-5.40 [facility] Comment on above: Performed By: #### L IPID, LIVER #### [facility] [address] [place] [address] Dr. Dora Mora WBC 7.6 103/ul Normal 4.0-11.0 [facility] Comment on above: Performed By: #### L IPID, LIVER #### [facility] [address] [place] [address] Dr. Dora Mora FREE THYROXINE INDEX T7on FTI 2.93 Normal 1.30-4.50 [facility] Comment on above: Performed By: #### C MP, TSH, T7, LIPID #### [facility] [address] [address] [address] Dora Mora T3U 38.0 % Normal 30.0-39.0 [facility] Comment on above: Performed By: #### C MP, TSH, T7, LIPID #### [facility] [address] [address] [address] Dora Mora T4 [Mass/Vol] 7.70 ug/dL Normal 4.80-13.90 [facility] Comment on above: Performed By: #### C MP, TSH, T7, LIPID #### [facility] [address] [address] [address] Dora Mora GLYCOHEMOGLOBIN A1Con 2021 ADA RECOMMENDATION SEE BELOW Normal [facility] Comment on above: Result Comment: ADA RECOMMENDED LIMIT 4.0 - 6.0 ADA THERAPEUTIC TARGET < 7.0 ACTION SUGGESTED > 7.0 Performed By: #### A 1C #### [facility] [address] [place] [address] Dr. Dora Mora Glucose [Mass/Vol] 148 mg/dL Normal [facility] Comment on above: Performed By: #### A 1C #### [facility] [address] [address] [address] Dora Mora HbA1c (Bld) [Mass fraction] 6.8 % Critically high 4.5-6.2 [facility] Comment on above: Performed By: #### A 1C #### [facility] [address] [place] [address] Dr. Dora Mora IRONon 01-20-2022 Iron [Mass/Vol] 88.0 ug/dL Normal 50.0-170.0 [facility] Comment on above: Performed By: #### I JOCELYNN, VITAD #### [facility] [address] [place] [address] Dr. Dora Mora LIPID PROFILEon 01-20-2022 CHOL-HDL RATIO NORM SEE BELOW Normal [facility] Comment on above: Result Comment: 3.3 - 4.4 LOW RISK 4.4 - 7.1 AVERAGE RISK 7.1 - 11.0 MODERATE RISK >11.0 HIGH RISK Performed By: #### L IPID, LIVER #### [facility] [address] [address] [address] Dora Mora Cholesterol [Mass/Vol] 180 mg/dL Normal <=200 [facility] Comment on above: Performed By: #### L IPID, LIVER #### [facility] [address] [address] [address] Dora Mora Cholesterol in HDL [Mass/Vol] 64 mg/dL Critically high 40-60 [facility] Comment on above: Performed By: #### L IPID, LIVER #### [facility] [address] [address] [address] Dora Mora Cholesterol in LDL [Mass/Vol] 55.4 mg/dL Normal [facility] Comment on above: Performed By: #### L IPID, LIVER #### [facility] [address] [address] [address] Dora Mora Cholesterol.total/Cho lesterol in HDL [Mass ratio] 2.8 {ratio} Normal [facility] Comment on above: Performed By: #### L IPID, LIVER #### [facility] [address] [address] [address] Dora Mora HDL NORMAL > or = 60 mg/dl - LOW CARDIOVASCULAR RISK <40 mg/dl - HIGH CARDIOVASCULAR RISK Normal [facility] Comment on above: Performed By: #### L IPID, LIVER #### [facility] [address] [address] [address] Dora Mora LDL CALC NORMAL SEE BELOW Normal [facility] Comment on above: Result Comment: <100 mg/dl OPTIMAL 100 - 129 mg/dl NEAR OR ABOVE OPTIMAL 130 - 159 mg/dl BORDERLINE HIGH 160 - 189 mg/dl HIGH >190 mg/dl VERY HIGH Performed By: #### L IPID, LIVER #### [facility] [address] [address] [address] Dora Mora Triglyceride [Mass/Vol] 303 mg/dL Critically high <=150 [facility] Comment on above: Performed By: #### L IPID, LIVER #### [facility] [address] [address] [address] Dora Mora VLDL CALC 60.6 mg/dL Normal [facility] Comment on above: Performed By: #### L IPID, LIVER #### [facility] [address] [address] [address] Dora Mora PROF 14(COMP METB)on 022 Albumin [Mass/Vol] 3.4 g/dL Normal 3.4-5.0 [facility] Comment on above: Performed By: #### C MP, TSH, T7, LIPID #### [facility] [address] [place] [address] Dr. Dora Mora Albumin/Globulin [Mass ratio] 0.9 {ratio} Normal [facility] Comment on above: Performed By: #### C MP, TSH, T7, LIPID #### [facility] [address] [place] [address] Dr. Dora Mora ALP [Catalytic activity/Vol] 61 U/L Normal 46-116 [facility] Comment on above: Performed By: #### C MP, TSH, T7, LIPID #### [facility] [address] [place] [address] Dr. Dora Mora ALT [Catalytic activity/Vol] 22 U/L Normal 14-59 [facility] Comment on above: Performed By: #### C MP, TSH, T7, LIPID #### [facility] [address] [address] [address] Dora Mora Anion gap [Moles/Vol] 10.9 mmol/L Normal [facility] Comment on above: Performed By: #### C MP, TSH, T7, LIPID #### [facility] [address] [address] [address] Dora Mora AST [Catalytic activity/Vol] 13 U/L Critically low 15-37 [facility] Comment on above: Performed By: #### C MP, TSH, T7, LIPID #### [facility] [address] [address] [address] Dora Mora Bilirubin [Mass/Vol] 0.6 mg/dL Normal 0.2-1.0 [facility] Comment on above: Performed By: #### C MP, TSH, T7, LIPID #### [facility] [address] [place] [address] Dr. Dora Mora Calcium [Mass/Vol] 9.4 mg/dL Normal 8.5-10.1 [facility] Comment on above: Performed By: #### C MP, TSH, T7, LIPID #### [facility] [address] [place] [address] Dr. Dora Mora Chloride [Moles/Vol] 103 mmol/L Normal 98-107 [facility] Comment on above: Performed By: #### C MP, TSH, T7, LIPID #### [facility] [address] [place] [address] Dr. Dora Mora CO2 [Moles/Vol] 28.6 mmol/L Normal 21.0-32.0 [facility] Comment on above: Performed By: #### C MP, TSH, T7, LIPID #### [facility] [address] [place] [address] Dr. Dora Mora Creatinine [Mass/Vol] 0.86 mg/dL Normal 0.55-1.02 [facility] Comment on above: Performed By: #### C MP, TSH, T7, LIPID #### [facility] [address] [place] [address] Dr. Dora Mora EGFR-AF CAMEROONIAN >60 Normal >=60 [facility] Comment on above: Performed By: #### C MP, TSH, T7, LIPID #### [facility] [address] [place] [address] Dr. Dora Mora EGFR-NON AF CAMEROONIAN >60 Normal >=60 [facility] Comment on above: Performed By: #### C MP, TSH, T7, LIPID #### [facility] [address] [place] [address] Dr. Dora Mora Globulin (S) [Mass/Vol] 3.6 g/dL Normal [facility] Comment on above: Performed By: #### C MP, TSH, T7, LIPID #### [facility] [address] [place] [address] Dr. Dora Mora Glucose [Mass/Vol] 167 mg/dL Critically high 74-106 [facility] Comment on above: Performed By: #### C MP, TSH, T7, LIPID #### [facility] [address] [place] [address] Dr. Dora Mora Potassium [Moles/Vol] 4.5 mmol/L Normal 3.5-5.1 [facility] Comment on above: Performed By: #### C MP, TSH, T7, LIPID #### [facility] [address] [place] [address] Dr. Dora Mora Protein [Mass/Vol] 7.0 g/dL Normal 6.4-8.2 [facility] Comment on above: Performed By: #### C MP, TSH, T7, LIPID #### [facility] [address] [place] [address] Dr. Dora Mora Sodium [Moles/Vol] 138 mmol/L Normal 136-145 [facility] Comment on above: Performed By: #### C MP, TSH, T7, LIPID #### [facility] [address] [place] [address] Dr. Dora Mora Urea nitrogen [Mass/Vol] 20.0 mg/dL Critically high 7.0-18.0 [facility] Comment on above: Performed By: #### C MP, TSH, T7, LIPID #### [facility] [address] [place] [address] Dr. Dora Mora Urea nitrogen/Creatinine [Mass ratio] 23.3 mg/mg Normal [facility] Comment on above: Performed By: #### C MP, TSH, T7, LIPID #### [facility] [address] [place] [address] Dr. Dora Mora TSHon 01-20-2022 TSH 1.657 uIU/mL Normal 0.358-3.740 [facility] Comment on above: Performed By: #### C MP, TSH, T7, LIPID #### [facility] [address] [place] [address] Dr. Dora Mora VITAMIN D 25 OHon 01-20-2022 VIT D 25-OH 96.7 ng/mL Normal [facility] Comment on above: Performed By: #### I JOCELYNN, VITAD #### [facility] [address] [place], [place] [address] Dr. Dora Mora VIT D RANGES SEE BELOW Normal [facility] Comment on above: Result Comment: <20 ng/mL Vit D deficient 20 - <30 ng/mL Vit D insufficient 30 - 100 ng/mL Vit D sufficient >100 ng/mL Potential Toxicity Performed By: #### I JOCELYNN VITAD #### [facility] [address] [address] [address] Dora Mora Vital Signs Date Time Vital Sign Value Performing Clinician Faci davy 04-02-2022 08:12-0500 Blood Pressure Location Ruiz DEVINE [facility] 04-02-2022 08:12-0500 Diastolic blood pressure 72 mm[Hg] Ruiz DEVINE [facility] 04-02-2022 08:12-0500 Heart rate 68 /min Ruiz DEVINE [facility] 04-02-2022 08:12-0500 Respiratory rate 16 /min Ruiz DEVINE [facility] 04-02-2022 08:12-0500 Systolic blood pressure 124 mm[Hg] Ruiz DEVINE [facility] Encounters Encounter Date Encounter Type Care Provider Facility Start: 04-02-2024 ambulatory Ruzi Howei ty:[facility] Start: 05-09-2023 End: 05-09-2023 ambulatory GARIM[facility] Start: 02-07-2023 ambulatory Quique Sebastian Facility:[facility] Start: 06-09-2022 End: 07-07-[address] JENNIFER SHANNON . Facility: Start: 04-28-2022 End: 04-29-[address] JENNIFER SHANNON . Facility:[facility] Start: 04-02-2022 End: 04-02-2022 Patient encounter procedure Ruiz DEVINE [facility] [facility] Start: 03-22-2022 End: 03-23-[address] JENNIFER [...] Provider Eliane santiago 04-18-2020 SARS-CoV-2 (COVID-19 ) [id number] vaccine Ruiz DEVINE [facility] Comment on above: Result Comment: pt d oes not have her card and can not remember the dates Payers Date Payer Category Payer Medicare [id number] 1959 Private Health Insurance [id number] 1940 Unknown [id number] [id number] [id number] 1940 Unknown [id number] [id number] [id number] 1940 Unknown [id number] 2.16.84 [id number] 1940 Unknown [id number] 2.16.84 [id number] 1940 Unknown [id number] [id number] Social History Date Type Detail Facility Start: 04-21-2021 Tobacco smoking status Never s moked tobacco (finding) [facility] Tobacco smoking status Never Brighte [facility] Sex Assigned At Female [facility] Functional Status Date Assessment Result Facility 04-02-2022 Functional Status N/A [facility] Progress note 05-09-2023 Note Date & Type Note Facility 05-09-2023 Note [facility] Cardiology Clinic Note Chief Complaint: Patient here [...] Return to clini (more content not included)... [facility] Discharge instructions 04-02-2022 Note Date & Type Note Facility 04-02-2022 Hospital Discharg e instructions Patient Education 04/02/2022 08:53:58 Kidney Stones, Zfck-jf-Kiad Kidney Stones Kidney stones are rock-like masses [...] Follow these instructions at home: Medicines Take [id number]-[id number] and prescription medicines only as told by [...] 09/20/2008 Document Revised: 08/21/2019 Document Reviewed: 08/21/2019 [employer] Patient Education 2020 [employer]. Follow Up Care 03/30/2021 09:32:03 With:SYBIL RODRIGUEZ, Ruiz Rangel, URL Address: [address] [place], [place] [address], [place] [address]- When: Unknown [facility] Evaluation + Plan note Note Date & Type Note Facility Evaluation + Plan note No data available for this section [facility] Progress note Note Date & Type Note Facility Progress note No data available for this section [facility] Summary Purpose Family History No Family History Records FoundNo Family History Records FoundNo Family History Records Found Advance Directives No Advanced Directives Records FoundNo Advanced Directives Records FoundNo Advanced Directives Records Found Additional Source Comments Patient Care team informatio n (unrecognized section and content) Personnel Name: Jennifer Shannon MD Address: Address: [address] [place] [id number] INFORMATION SOURCE (unrecogn ized section and content) DATE CREATED AUTHOR 07/24/2022 [facility] DATE CREATED AUTHOR AUTHOR'S ORGANIZ ATION 05/26/2023 [facility] DATE CREATED AUTHOR AUTHOR'S ORGANIZ ATION 06/21/2023 [facility] FOR RECORDS PERTAINING TO PATIENTS WHO ARE [...] BE BASED ON THE PRIMARY CLINICAL RECORDS. [facility] [employer] provides no warranty or guarantee of the accuracy or completeness of information in this document.
[2023-12-11 16:59] LABS: Basophils Percent Auto 0.5 % (0.2-2.0); Eosinophils Absolute Auto 0.4 10^3/uL (0.0-0.7); Eosinophils Percent Auto 6.1 % (0.9-7.0); Hematocrit 38.4 % (36.0-48.0); Hemoglobin 12.7 g/dL (12.0-16.0); Immature Granulocytes Abs Auto 0.01 10^3/uL (0.00-0.03); Immature Granulocytes Pct Auto 0.2 % (0.0-0.5); Lymphocytes Absolute Auto 2.2 10^3/uL (1.2-3.8); Lymphocytes Percent Auto 37.7 % (20.5-60.0); Mean Corpuscular HGB Conc 33.1 g/dL (29.9-35.2); Mean Corpuscular Hemoglobin 30.4 pg (26.7-34.0); Mean Corpuscular Volume 91.9 fL (81.0-99.0); Mean Platelet Volume 9.5 fL (9.5-13.5); Monocytes Absolute Auto 0.5 10^3/uL (0.3-0.8); Monocytes Percent Auto 8.5 % (1.7-12.0); Neutrophils Absolute Auto 2.7 10^3/uL (1.4-6.5); Platelet Count 228 10^3/uL (150-450); Red Blood Count 4.18 10^6/uL (4.20-5.40); Red Cell Distribution Width 13.2 % (11.0-15.0); White Blood Count 5.8 10^3/uL (4.0-11.0)
[2023-12-11 17:09] LABS: INR 0.93; Partial Thromboplastin Time 24.5 sec (22.3-36.2); Prothrombin Time 9.9 sec (9.0-11.6)
[2023-12-11] MEDS: 0.9 % SODIUM CHLORIDE 1,000 ML 999 ML IV (17:09)
[2023-12-11 17:11] LABS: Anion Gap 13.1
[2023-12-11 17:12] LABS: Alanine Aminotransferase 23 U/L (14-59); Albumin Globulin Ratio 0.9; Albumin Level 3.4 g/dL (3.4-5.0); Alkaline Phosphatase 57 U/L (46-116); Aspartate Amino Transferase 23 U/L (15-37); Bilirubin Total 0.4 mg/dL (0.2-1.0); Calcium 9.4 mg/dL (8.5-10.1); Carbon Dioxide 28.2 mmol/L (21.0-32.0); Chloride 105 mmol/L (98-107); Estimated GFR (African America >60 (>=60); Estimated GFR (Non-African Ame >60 (>=60); Globulin 3.7 g/dL; Glucose 112 mg/dL (74-106); Potassium 4.3 mmol/L (3.5-5.1); Sodium 142 mmol/L (136-145); Total Protein 7.1 g/dL (6.4-8.2); Troponin I High Sensitivity 8.4 pg/mL (4.0-51.3)
[2023-12-11 18:10] LABS: Bilirubin Urine NEGATIVE (NEGATIVE); Blood Urine NEGATIVE (NEGATIVE); Clarity Urine CLEAR (CLEAR); Color Urine YELLOW (YELLOW); Glucose Urine UA NEGATIVE (NEGATIVE); Ketones Urine TRACE mg/dL (NEGATIVE); Leukocyte Esterase Urine NEGATIVE (NEGATIVE); Nitrite Urine NEGATIVE (NEGATIVE); Protein Urine NEGATIVE (NEG/TRACE); Specific Gravity Urine 1.025 (1.005-1.025); Urobilinogen Urine 0.2 EU/dL (0.2-1.0)
[2023-12-11 18:14] LABS: Urine Microscopic Indicated NO
--- OUTSIDE RECORDS SUMMARY | 2023-12-11 20:43 | XMS_ITS | CCD ---
Author Organization [facility] Care Team Providers Care Ecmo Specialist Name Role Phone Jennifer Shannon Primary Care Physician DE ., DR RODRIGUEZ Consulting Unavailable DEVINE ., DR PACK Attending Unavailable DEVINE ., DR PACK Admitting Unavailable HOY ., DR RODRIGUEZ Primary Care Unavailable KEELER, DR SHEMAR Granados Consulting Unavailable HOY ., [...] [penicillin] Drug Allergy Eruption of skin (disorder) [facility] Ethel (2 sources) Penicillins; Translations: [PENICILLINS] Drug allergy (disorder) 4 [facility] Repository (1 source) No Known Medication Allergies; Translations: [No Known Medication Allergies] Propensity to adverse reactions (disorder) [facility] Repository Medications Current Medications Medication Drug Class(es) [...] day(s), # 180 tab(s), Refills(s) 3, Pharmacy: [facility]/pharmacy #[id number], 161.3, cm, 04/21/21 14:11:00 EST, Height/Length Dosing, 81.8, kg, 04/21/21 14:11:00 EST, Weight Dosing Start Date: 09/16/21 Stop Date: 09/11/22 Status: Ordered Problems Active Problems Problem Classification Problem Date Documented Da te Episodic/Chronic Coronary atherosclerosis and other heart disease (4 sources) Coronary arteriosclerosis; Translations: [Atherosclerotic heart disease of [place] coronary artery without angina pectoris] Onset: 01-22-2022 [...] Dr. Shannon's office made aware also. Normal [facility] Office Visiton 05-09-2023 Follow-up visit [id number] Kelin Rosenberg 1940 F Date Provider Department Center 05/09/2023 271-GARIMA KELLY [facility] Family History Problem Relation Age of Onset Diabetes Mother Coronary artery disease Father Family Status - Relation Status Age at Mother Father Level of Service:00210 [place] OFFICE/OUTPATIENT ESTABLISHED MOD MDM 30 MIN Normal [facility] Patient Letter FTMCon 2022 Patient Letter [facility] February 07, 2023 KELIN ROSENBERG [address] [place] [address] : 1940 Dear Kelin, This is a reminder that you are due for an appointment with [facility]. Please contact our office at [phone] to schedule your 10 year colon recall Thank you, [facility] Reminderson 02-07-2023 Reminders -- From: Isabel Dale MA To: Isabel Dale MA; Sent: 02/07/2023 10:24:57 EDT Show up: 02/07/2023 10:25:00 EDT Subject: colon recall Reminder Message [address] Esteban 02/16/13 first recall letter sent Normal [facility] LIPID PROFILEon 04-28-2022 CHOL-HDL RATIO NORM SEE BELOW Normal [facility] Comment on above: Result Comment: 3.3 - 4.4 LOW RISK 4.4 - 7.1 AVERAGE RISK 7.1 - 11.0 MODERATE RISK >11.0 HIGH RISK Performed By: #### L IPID, LIVER #### [facility] [address] [address] [address] Dora Mora Cholesterol [Mass/Vol] 199 mg/dL Normal <=200 [facility] Comment on above: Performed By: #### L IPID, LIVER #### [facility] [address] [address] [address] Dora Mora Cholesterol in HDL [Mass/Vol] 75 mg/dL Critically high 40-60 [facility] Comment on above: Performed By: #### L IPID, LIVER #### [facility] [address] [address] [address] Dora Mora Cholesterol in LDL [Mass/Vol] 86.2 mg/dL Normal [facility] Comment on above: Performed By: #### L IPID, LIVER #### [facility] [address] [address] [address] Dora Mora Cholesterol.total/Cho lesterol in HDL [Mass ratio] 2.7 {ratio} Normal [facility] Comment on above: Performed By: #### L IPID, LIVER #### [facility] [address] [address] [address] Dora Mora HDL NORMAL > or = 60 mg/dl - LOW CARDIOVASCULAR RISK <40 mg/dl - HIGH CARDIOVASCULAR RISK Normal [facility] Comment on above: Performed By: #### L IPID, LIVER #### [facility] [address] [address] [address] Dora Mora LDL CALC NORMAL SEE BELOW Normal [facility] Comment on above: Result Comment: <100 mg/dl OPTIMAL 100 - 129 mg/dl NEAR OR ABOVE OPTIMAL 130 - 159 mg/dl BORDERLINE HIGH 160 - 189 mg/dl HIGH >190 mg/dl VERY HIGH Performed By: #### L IPID, LIVER #### [facility] [address] [place] [address] Dr. Dora Mora Triglyceride [Mass/Vol] 189 mg/dL Critically high <=150 [facility] Comment on above: Performed By: #### L IPID, LIVER #### [facility] [address] [place] [address] Dr. Dora Mora VLDL CALC 37.8 mg/dL Normal [facility] Comment on above: Performed By: #### L IPID, LIVER #### [facility] [address] [place] [address] Dr. Dora Mora LIVER PROFILEon 04-28-2022 Albumin [Mass/Vol] 3.7 g/dL Normal 3.4-5.0 [facility] Comment on above: Performed By: #### L IPID, LIVER #### [facility] [address] [place] [address] Dr. Dora Mora Albumin/Globulin [Mass ratio] 1.0 {ratio} Normal [facility] Comment on above: Performed By: #### L IPID, LIVER #### [facility] [address] [place] [address] Dr. Dora Mora ALP [Catalytic activity/Vol] 62 U/L Normal 46-116 [facility] Comment on above: Performed By: #### L IPID, LIVER #### [facility] [address] [place] [address] Dr. Dora Mora ALT [Catalytic activity/Vol] 18 U/L Normal 14-59 [facility] Comment on above: Performed By: #### L IPID, LIVER #### [facility] [address] [place] [address] Dr. Dora Mora AST [Catalytic activity/Vol] 19 U/L Normal 15-37 [facility] Comment on above: Performed By: #### L IPID, LIVER #### [facility] [address] [place] [address] Dr. Dora Mora BILI, CONJUGATED 0.1 mg/dL Normal 0.0-0.2 [facility] Comment on above: Performed By: #### L IPID, LIVER #### [facility] [address] [place] [address] Dr. Dora Mora Bilirubin [Mass/Vol] 0.5 mg/dL Normal 0.2-1.0 [facility] Comment on above: Performed By: #### L IPID, LIVER #### [facility] [address] [place] [address] Dr. Dora Mora Globulin (S) [Mass/Vol] 3.7 g/dL Normal [facility] Comment on above: Performed By: #### L IPID, LIVER #### [facility] [address] [place] [address] Dr. Dora Mora Protein [Mass/Vol] 7.4 g/dL Normal 6.4-8.2 [facility] Comment on above: Performed By: #### L IPID, LIVER #### [facility] [address] [place] [address] Dr. Dora Mora XR KUB 1 VIEWon [...] SHEMAR ARELLANO Date: 2022-03-22 12:08 Normal [facility] INSULINon 01-21-2022 Insulin 16.5 uIU/mL Normal 2.6-24.9 [facility] Comment on above: Performed By: #### I NSULIN #### [facility] [address] [place] [address] Dr. Dora Mora CBC AUTO DIFFon 01-20-2022 BASO # 0.0 103/ul Normal 0.0-0.1 [facility] Comment on above: Performed By: #### L IPID, LIVER #### [facility] [address] [place] [address] Dr. Dora Mora Basophils/100 WBC (Bld) 0.5 % Normal 0.2-2.0 [facility] Comment on above: Performed By: #### L IPID, LIVER #### [facility] [address] [place] [address] Dr. Dora Mora EO # 0.2 103/ul Normal 0.0-0.7 [facility] Comment on above: Performed By: #### L IPID, LIVER #### [facility] [address] [place] [address] Dr. Dora Mora Eosinophils/100 WBC (Bld) 2.4 % Normal 0.9-7.0 [facility] Comment on above: Performed By: #### L IPID, LIVER #### [facility] [address] [place] [address] Dr. Dora Mora Erythrocyte distribution width (RBC) [Ratio] 12.9 % Normal 11.0-15.0 [facility] Comment on above: Performed By: #### L IPID, LIVER #### [facility] [address] [place] [address] Dr. Dora Mora Hematocrit (Bld) [Volume fraction] 39.9 % Normal 36.0-48.0 [facility] Comment on above: Performed By: #### L IPID, LIVER #### [facility] [address] [place] [address] Dr. Dora Mora Hemoglobin (Bld) [Mass/Vol] 13.4 g/dL Normal 12.0-16.0 [facility] Comment on above: Performed By: #### L IPID, LIVER #### [facility] [address] [place] [address] Dr. Dora Mora IG # 0.07 10e3/ul Critically high 0.00-0.03 [facility] Comment on above: Performed By: #### L IPID, LIVER #### [facility] [address] [place] [address] Dr. Dora Mora IG % 0.9 % Critically high 0.0-0.5 [facility] Comment on above: Performed By: #### L IPID, LIVER #### [facility] [address] [place] [address] Dr. Dora Mora LYMPH # 2.5 103/ul Normal 1.2-3.8 [facility] Comment on above: Performed By: #### L IPID, LIVER #### [facility] [address] [place] [address] Dr. Dora Mora Lymphocytes/100 WBC (Bld) 32.4 % Normal 20.5-60.0 [facility] Comment on above: Performed By: #### L IPID, LIVER #### [facility] [address] [place] [address] Dr. Dora Mora MANUAL DIFF REQ NO Normal [facility] Comment on above: Performed By: #### L IPID, LIVER #### [facility] [address] [place] [address] Dr. Dora Mora MCH (RBC) [Entitic mass] 30.1 pg Normal 26.7-34.0 [facility] Comment on above: Performed By: #### L IPID, LIVER #### [facility] [address] [place] [address] Dr. Dora Mora MCHC (RBC) [Mass/Vol] 33.6 g/dL Normal 29.9-35.2 [facility] Comment on above: Performed By: #### L IPID, LIVER #### [facility] [address] [place] [address] Dr. Dora Mora MCV (RBC) [Entitic vol] 89.7 fL Normal 81.0-99.0 [facility] Comment on above: Performed By: #### L IPID, LIVER #### [facility] [address] [place] [address] Dr. Dora Mora MONO # 0.5 103/ul Normal 0.3-0.8 [facility] Comment on above: Performed By: #### L IPID, LIVER #### [facility] [address] [place] [address] Dr. Dora Mora Monocytes/100 WBC (Bld) 6.5 % Normal 1.7-12.0 [facility] Comment on above: Performed By: #### L IPID, LIVER #### [facility] [address] [place] [address] Dr. Dora Mora NEUT # 4.3 103/ul Normal 1.4-6.5 [facility] Comment on above: Performed By: #### L IPID, LIVER #### [facility] [address] [place] [address] Dr. Dora Mora Neutrophils/100 WBC (Bld) 57.3 % Normal 43.0-75.0 [facility] Comment on above: Performed By: #### L IPID, LIVER #### [facility] [address] [place] [address] Dr. Dora Mora Platelet mean volume (Bld) [Entitic vol] 9.2 fL Critically low 9.5-13.5 [facility] Comment on above: Performed By: #### L IPID, LIVER #### [facility] [address] [place] [address] Dr. Dora Mora PLT 261 103/ul Normal 150-450 [facility] Comment on above: Performed By: #### L IPID, LIVER #### [facility] [address] [place] [address] Dr. Dora Mora RBC 4.45 106/ul Normal 4.20-5.40 [facility] Comment on above: Performed By: #### L IPID, LIVER #### [facility] [address] [place] [address] Dr. Dora Mora WBC 7.6 103/ul Normal 4.0-11.0 [facility] Comment on above: Performed By: #### L IPID, LIVER #### [facility] [address] [place] [address] Dr. Dora Mora FREE THYROXINE INDEX T7on FTI 2.93 Normal 1.30-4.50 [facility] Comment on above: Performed By: #### C MP, TSH, T7, LIPID #### [facility] [address] [address] [address] Dora Mora T3U 38.0 % Normal 30.0-39.0 [facility] Comment on above: Performed By: #### C MP, TSH, T7, LIPID #### [facility] [address] [address] [address] Dora Mora T4 [Mass/Vol] 7.70 ug/dL Normal 4.80-13.90 [facility] Comment on above: Performed By: #### C MP, TSH, T7, LIPID #### [facility] [address] [address] [address] Dora Mora GLYCOHEMOGLOBIN A1Con 2021 ADA RECOMMENDATION SEE BELOW Normal [facility] Comment on above: Result Comment: ADA RECOMMENDED LIMIT 4.0 - 6.0 ADA THERAPEUTIC TARGET < 7.0 ACTION SUGGESTED > 7.0 Performed By: #### A 1C #### [facility] [address] [place] [address] Dr. Dora Mora Glucose [Mass/Vol] 148 mg/dL Normal [facility] Comment on above: Performed By: #### A 1C #### [facility] [address] [address] [address] Dora Mora HbA1c (Bld) [Mass fraction] 6.8 % Critically high 4.5-6.2 [facility] Comment on above: Performed By: #### A 1C #### [facility] [address] [place] [address] Dr. Dora Mora IRONon 01-20-2022 Iron [Mass/Vol] 88.0 ug/dL Normal 50.0-170.0 [facility] Comment on above: Performed By: #### I JOCELYNN, VITAD #### [facility] [address] [place] [address] Dr. Dora Mora LIPID PROFILEon 01-20-2022 CHOL-HDL RATIO NORM SEE BELOW Normal [facility] Comment on above: Result Comment: 3.3 - 4.4 LOW RISK 4.4 - 7.1 AVERAGE RISK 7.1 - 11.0 MODERATE RISK >11.0 HIGH RISK Performed By: #### L IPID, LIVER #### [facility] [address] [address] [address] Dora Mora Cholesterol [Mass/Vol] 180 mg/dL Normal <=200 [facility] Comment on above: Performed By: #### L IPID, LIVER #### [facility] [address] [address] [address] Dora Mora Cholesterol in HDL [Mass/Vol] 64 mg/dL Critically high 40-60 [facility] Comment on above: Performed By: #### L IPID, LIVER #### [facility] [address] [address] [address] Dora Mora Cholesterol in LDL [Mass/Vol] 55.4 mg/dL Normal [facility] Comment on above: Performed By: #### L IPID, LIVER #### [facility] [address] [address] [address] Dora Mora Cholesterol.total/Cho lesterol in HDL [Mass ratio] 2.8 {ratio} Normal [facility] Comment on above: Performed By: #### L IPID, LIVER #### [facility] [address] [address] [address] Dora Mora HDL NORMAL > or = 60 mg/dl - LOW CARDIOVASCULAR RISK <40 mg/dl - HIGH CARDIOVASCULAR RISK Normal [facility] Comment on above: Performed By: #### L IPID, LIVER #### [facility] [address] [address] [address] Dora Mora LDL CALC NORMAL SEE BELOW Normal [facility] Comment on above: Result Comment: <100 mg/dl OPTIMAL 100 - 129 mg/dl NEAR OR ABOVE OPTIMAL 130 - 159 mg/dl BORDERLINE HIGH 160 - 189 mg/dl HIGH >190 mg/dl VERY HIGH Performed By: #### L IPID, LIVER #### [facility] [address] [address] [address] Dora Mora Triglyceride [Mass/Vol] 303 mg/dL Critically high <=150 [facility] Comment on above: Performed By: #### L IPID, LIVER #### [facility] [address] [address] [address] Dora Mora VLDL CALC 60.6 mg/dL Normal [facility] Comment on above: Performed By: #### L IPID, LIVER #### [facility] [address] [address] [address] Dora Mora PROF 14(COMP METB)on 022 Albumin [Mass/Vol] 3.4 g/dL Normal 3.4-5.0 [facility] Comment on above: Performed By: #### C MP, TSH, T7, LIPID #### [facility] [address] [place] [address] Dr. Dora Mora Albumin/Globulin [Mass ratio] 0.9 {ratio} Normal [facility] Comment on above: Performed By: #### C MP, TSH, T7, LIPID #### [facility] [address] [place] [address] Dr. Dora Mora ALP [Catalytic activity/Vol] 61 U/L Normal 46-116 [facility] Comment on above: Performed By: #### C MP, TSH, T7, LIPID #### [facility] [address] [place] [address] Dr. Dora Mora ALT [Catalytic activity/Vol] 22 U/L Normal 14-59 [facility] Comment on above: Performed By: #### C MP, TSH, T7, LIPID #### [facility] [address] [address] [address] Dora Mora Anion gap [Moles/Vol] 10.9 mmol/L Normal [facility] Comment on above: Performed By: #### C MP, TSH, T7, LIPID #### [facility] [address] [address] [address] Dora Mora AST [Catalytic activity/Vol] 13 U/L Critically low 15-37 [facility] Comment on above: Performed By: #### C MP, TSH, T7, LIPID #### [facility] [address] [address] [address] Dora Mora Bilirubin [Mass/Vol] 0.6 mg/dL Normal 0.2-1.0 [facility] Comment on above: Performed By: #### C MP, TSH, T7, LIPID #### [facility] [address] [place] [address] Dr. Dora Mora Calcium [Mass/Vol] 9.4 mg/dL Normal 8.5-10.1 [facility] Comment on above: Performed By: #### C MP, TSH, T7, LIPID #### [facility] [address] [place] [address] Dr. Dora Mora Chloride [Moles/Vol] 103 mmol/L Normal 98-107 [facility] Comment on above: Performed By: #### C MP, TSH, T7, LIPID #### [facility] [address] [place] [address] Dr. Dora Mora CO2 [Moles/Vol] 28.6 mmol/L Normal 21.0-32.0 [facility] Comment on above: Performed By: #### C MP, TSH, T7, LIPID #### [facility] [address] [place] [address] Dr. Dora Mora Creatinine [Mass/Vol] 0.86 mg/dL Normal 0.55-1.02 [facility] Comment on above: Performed By: #### C MP, TSH, T7, LIPID #### [facility] [address] [place] [address] Dr. Dora Mora EGFR-AF CONGOLESE >60 Normal >=60 [facility] Comment on above: Performed By: #### C MP, TSH, T7, LIPID #### [facility] [address] [place] [address] Dr. Dora Mora EGFR-NON AF CONGOLESE >60 Normal >=60 [facility] Comment on above: Performed By: #### C MP, TSH, T7, LIPID #### [facility] [address] [place] [address] Dr. Dora Mora Globulin (S) [Mass/Vol] 3.6 g/dL Normal [facility] Comment on above: Performed By: #### C MP, TSH, T7, LIPID #### [facility] [address] [place] [address] Dr. Dora Mora Glucose [Mass/Vol] 167 mg/dL Critically high 74-106 [facility] Comment on above: Performed By: #### C MP, TSH, T7, LIPID #### [facility] [address] [place] [address] Dr. Dora Mora Potassium [Moles/Vol] 4.5 mmol/L Normal 3.5-5.1 [facility] Comment on above: Performed By: #### C MP, TSH, T7, LIPID #### [facility] [address] [place] [address] Dr. Dora Mora Protein [Mass/Vol] 7.0 g/dL Normal 6.4-8.2 [facility] Comment on above: Performed By: #### C MP, TSH, T7, LIPID #### [facility] [address] [place] [address] Dr. Dora Mora Sodium [Moles/Vol] 138 mmol/L Normal 136-145 [facility] Comment on above: Performed By: #### C MP, TSH, T7, LIPID #### [facility] [address] [place] [address] Dr. Dora Mora Urea nitrogen [Mass/Vol] 20.0 mg/dL Critically high 7.0-18.0 [facility] Comment on above: Performed By: #### C MP, TSH, T7, LIPID #### [facility] [address] [place] [address] Dr. Dora Mora Urea nitrogen/Creatinine [Mass ratio] 23.3 mg/mg Normal [facility] Comment on above: Performed By: #### C MP, TSH, T7, LIPID #### [facility] [address] [place] [address] Dr. Dora Mora TSHon 01-20-2022 TSH 1.657 uIU/mL Normal 0.358-3.740 [facility] Comment on above: Performed By: #### C MP, TSH, T7, LIPID #### [facility] [address] [place] [address] Dr. Dora Mora VITAMIN D 25 OHon 01-20-2022 VIT D 25-OH 96.7 ng/mL Normal [facility] Comment on above: Performed By: #### I JOCELYNN, VITAD #### [facility] [address], [place] [address] Dr. Dora Mora VIT D RANGES SEE BELOW Normal [facility] Comment on above: Result Comment: <20 ng/mL Vit D deficient 20 - <30 ng/mL Vit D insufficient 30 - 100 ng/mL Vit D sufficient >100 ng/mL Potential Toxicity Performed By: #### I JOCELYNN VITAD #### [facility] [address] [address] [address] Dora Mora Vital Signs Date Time Vital Sign Value Performing Clinician Faci davy 04-02-2022 08:12-0500 Blood Pressure Location Ruiz DEVINE [facility] 04-02-2022 08:12-0500 Diastolic blood pressure 72 mm[Hg] Ruiz DEVINE [facility] 04-02-2022 08:12-0500 Heart rate 68 /min Ruiz DEVINE [facility] 04-02-2022 08:12-0500 Respiratory rate 16 /min Ruiz DEVINE [facility] 04-02-2022 08:12-0500 Systolic blood pressure 124 mm[Hg] Ruiz DEVINE [facility] Encounters Encounter Date Encounter Type Care Provider Facility Start: 04-02-2024 ambulatory Ruiz Howei ty:SIM Dixon Start: 05-09-2023 End: 05-09-2023 ambulatory GARIMA [facility] Start: 02-07-2023 ambulatory Quique Sebastian Facility:[facility] Start: 06-09-2022 End: 07-07-[address] JENNIFER SHANNON . Facility: Start: 04-28-2022 End: 04-29-[address] JENNIFER SHANNON . Facility:[facility] Start: 04-02-2022 End: 04-02-2022 Patient encounter procedure Ruiz DEVINE [facility] Start: 03-22-2022 End: 03-23-[address] [...] Provider Eliane santiago 04-18-2020 SARS-CoV-2 (COVID-19 ) [id number] vaccine Ruiz DEVINE [facility] Comment on above: Result Comment: pt d oes not have her card and can not remember the dates Payers Date Payer Category Payer Medicare [id number] 1959 Private Health Insurance [id number] 1940 Unknown [id number] [id number] [id number] 1940 Unknown [id number] [id number] [id number] 1940 Unknown [id number] [id number] [id number] 1940 Unknown [id number] [id number] 1940 Unknown [id number] [id number] Social History Date Type Detail Facility Start: 04-21-2021 Tobacco smoking status Never s moked tobacco (finding) [facility] Tobacco smoking status Never Bright[facility] Sex Assigned At Female [facility] Functional Status Date Assessment Result Facility 04-02-2022 Functional Status N/A [facility] Progress note 05-09-2023 Note Date & Type Note Facility 05-09-2023 Note [facility] Cardiology Clinic Note Chief Complaint: Patient here [...] Return to clini (more content not included)... [facility] Hospital Discharge instructions 04-02-2022 Note Date & Type Note Facility 04-02-2022 Hospital Discharg e instructions Patient Education 04/02/2022 08:53:58 Kidney Stones, Hxou-mm-Iror Kidney Stones Kidney stones are rock-like masses [...] Follow these instructions at home: Medicines Take [id number]-[id number] and prescription medicines only as told by [...] 09/20/2008 Document Revised: 08/21/2019 Document Reviewed: 08/21/2019 [employer] Patient Education 2020 [employer]. Follow Up Care 03/30/2021 09:32:03 With:SYBIL RODRIGUEZ, Ruiz Rangel, URL Address: [address] [place], [place] [address] [address]- When: Unknown [facility] Evaluation + Plan note Note Date & Type Note Facility Evaluation + Plan note No data available for this section [facility] Progress note Note Date & Type Note Facility Progress note No data available for this section [facility] Summary Purpose Family History No Family History Records FoundNo Family History Records FoundNo Family History Records Found Advance Directives No Advanced Directives Records FoundNo Advanced Directives Records FoundNo Advanced Directives Records Found Additional Source Comments Patient Care team informatio n (unrecognized section and content) Personnel Name: Jennifer Shannon MD Address: Address: [address] [place] [id number] INFORMATION SOURCE (unrecogn ized section and content) DATE CREATED AUTHOR 07/24/2022 [facility] DATE CREATED AUTHOR AUTHOR'S ORGANIZ ATION 05/26/2023 [facility] DATE CREATED AUTHOR AUTHOR'S ORGANIZ ATION 06/21/2023 [facility] FOR RECORDS PERTAINING TO PATIENTS WHO [...] PRIMARY CLINICAL RECORDS. [facility] [employer] provides no warranty or guarantee of the accuracy or completeness of information in this document.
[2023-12-11] MEDS: ACETAMINOPHEN 325 MG TABLET 650 MG PO (23:49)
[2023-12-11] MEDS: ATORVASTATIN CALCIUM 20 MG TABLET PO (23:49)
[2023-12-11] MEDS: METOPROLOL SUCCINATE 50 MG TAB.ER.24H PO (23:49)
[2023-12-11] MEDS: METFORMIN HCL 500 MG TABLET PO (23:50)
[2023-12-12 04:13] VITALS: BP 152/71; PULSE 55; TEMP 36.5; O2SAT 95
[2023-12-12 06:14] LABS: Hematocrit 33.8 % (36.0-48.0); Hemoglobin 11.3 g/dL (12.0-16.0); Mean Corpuscular HGB Conc 33.4 g/dL (29.9-35.2); Mean Corpuscular Hemoglobin 30.6 pg (26.7-34.0); Mean Corpuscular Volume 91.6 fL (81.0-99.0); Mean Platelet Volume 9.3 fL (9.5-13.5); Platelet Count 191 10^3/uL (150-450); Red Blood Count 3.69 10^6/uL (4.20-5.40); Red Cell Distribution Width 13.2 % (11.0-15.0); White Blood Count 6.2 10^3/uL (4.0-11.0)
[2023-12-12 06:33] LABS: Calcium 8.9 mg/dL (8.5-10.1); Chloride 109 mmol/L (98-107); Estimated GFR (African America >60 (>=60); Estimated GFR (Non-African Ame >60 (>=60); Glucose 99 mg/dL (74-106); Sodium 143 mmol/L (136-145)
[2023-12-12 07:59] VITALS: BP 162/65; PULSE 53; TEMP 36.7; O2SAT 93
--- NOTE | 2023-12-12 07:59 | P.HP_ITS ---
HPI H&P: HPI History of Present Illness Chief complaint: FALL, CHI, Concussion Narrative: Patient to the emergency room after a fall. It was unwitnessed. heard immediately, went to her and she was confused right at the time. Kept repeating herself to the emergency squad. In the ER workup showed contusion, likely concussion, rest of workup was unremarkable. When I saw patient up in the medical surgical floor daughter and were in the room. She was back to her normal self. She knew where she was and who I was. He does not recall the events of the fall or having lunch which would have been probably a couple hours before that. Opioid HPI Opioid Management Most Recent Pain and Opioid Data: Last Pain Scale 2 12/12/23 04:13 Last Pain Intensity 0 12/12/23 08:43 Last Pain Assessment 12/12/23 10:29 Last MAR Pain Assessment 12/12/23 01:03 Last ORT Total Score 2 12/11/23 20:51 Last ORT Risk Category Low Risk 12/11/23 20:51 Review of Systems ROS Status of ROS 10 or more systems reviewed and unremark able except as noted in history and below PFSH PFSH Social History Highest level of school completed/degree received: Associate degree: occupational, technical, vocational program Do you think of yourself as: straight/heterosexual Gender Identity: female Meds Home Medications and Allergies Home Medications ?Medication ?Instructions ?Recorded ?Confirmed ?Type aspirin 81 mg capsule 162 mg PO DAILY 12/11/23 12/11/23 History calcium 600 mg capsule 600 mg PO BID 12/11/23 12/11/23 History cholecalciferol (vitamin D3) 125 5,000 unit PO .evening 12/11/23 12/11/23 History mcg (5,000 unit) tablet docusate sodium 100 mg capsule 200 mg PO DAILY 12/11/23 12/11/23 History (Colace) gabapentin 300 mg capsule 300 mg PO DAILY 12/11/23 12/11/23 History metformin 500 mg tablet 1,000 mg PO .am 12/11/23 12/11/23 History metformin 500 mg tablet 500 mg PO .evening 12/11/23 12/11/23 History metoprolol succinate 50 mg 50 mg PO .hs 12/11/23 12/11/23 History tablet,extended release 24 hr potassium bicarbonate-citric acid 25 meq PO BID 12/11/23 12/11/23 History 25 mEq effervescent tablet (Effer-K) ramipril 2.5 mg capsule 2.5 mg PO DAILY 12/11/23 12/11/23 History simvastatin 20 mg tablet 20 mg PO .hs 12/11/23 12/11/23 History vitamin A-vitamin C-vit E-min 1 tab PO DAILY 12/11/23 12/11/23 History tablet Allergies Allergy/AdvReac Type Severity Reaction Status Date / Time penicillins Allergy Unknown Unknown Uncoded 12/11/23 17:02 Exam Constitutional Vital Signs, click to edit/add: Last Vital Signs Temp 97.7 F 12/12/23 04:13 Pulse 55 L 12/12/23 04:13 Resp 18 12/12/23 04:13 BP 152/71 H 12/12/23 04:13 Pulse Ox 95 12/12/23 04:13 O2 Del Method Room Air 12/12/23 04:13 Documenting provider has reviewed patient's vital signs: yes Common normals: no apparent distress Eye Common normals: PERRL and EOMs intact bilaterally Lymph Lymphatic: no lymphadenopathy noted Chest Common normals: inspection of chest normal and palpation of chest normal Respiratory Common normals: normal respiratory effort and no retractions Cardio Common normals: regular rate, regular rhythm and no murmurs GI Common normals: Normal to inspection, nondistended, normoactive bowel sounds present Extremity Common normals: normal to inspection, full ROM and no clubbing, cyanosis or edema Neuro Common normals: oriented x3, CN's II-XII intact bilaterally and moves all extremities Results Labs Labs: Short CBC 12/11/23 12/12/23 Range/Units 16:43 05:22 WBC 5.8 6.2 (4.0-11.0) 10^3/uL Hgb 12.7 11.3 L (12.0-16.0) g/dL Hct 38.4 33.8 L (36.0-48.0) % Plt Count 228 191 (150-450) 10^3/uL BMP 12/11/23 12/12/23 16:43 05:22 Sodium 142 143 Potassium 4.3 4.0 Chloride 105 109 H Carbon Dioxide 28.2 25.0 BUN 22.0 H 17.0 Creatinine 0.71 0.74 Glucose 112 H 99 Calcium 9.4 8.9 Liver Function 12/11/23 Range/Units 16:43 Total Bilirubin 0.4 (0.2-1.0) mg/dL AST 23 (15-37) U/L ALT 23 (14-59) U/L Alkaline Phosphatase 57 (46-116) U/L Albumin 3.4 (3.4-5.0) g/dL Urine 12/11/23 Range/Units 18:00 Urine Color Yellow (YELLOW) Urine Clarity Clear (CLEAR) Urine pH 6.0 (5.0-9.0) Ur Specific [place] 1.025 (1.005-1.025) Urine Protein Negative (NEG/TRACE) mg/dL Urine Glucose (UA) Negative (NEGATIVE) mg/dL Assessment and Plan Assessment and Plan (1) Post concussive syndrome: (2) Closed head injury: Plan Admission findings: Bradycardia, uncontrolled hypertension, mild iron deficiency, hypokalemia, acute elevation in BUN consistent with mild dehydration-overnight telemetry with unremarkable. No significant pauses. Concussion with postconcussion syndrome with retrograde amnesia-significant concussion, unlikely to have any internal bleeding at this point being this far out. Watch for this morning. Physical therapy to work with her with ambulation Somewhat poor balance and this has been since COVID. Physical therapy worked with patient and she will require a wheeled walker for assistance to reduce her fall risk. Uncontrolled hypertension-blood pressure better here today than yesterday. Will continue to monitor as an outpatient when she sees me in the office later this week Mild dehydration with elevated BUN over creatinine-watch fluid balance at home. Had not eaten well that particular day. Reevaluate later Admission status: Patient admitted to observation, likelihood of spending just 1 midnight. If able to walk later today with wheeled walker with assistance without assistance from physical therapy-discharge to home in improving condition. Medications see list. Follow-up with me in the office later this week.
--- NOTE | 2023-12-12 08:00 | P.DS_ITS ---
DS: Providers Provider Date of admission: 12/11/23 20:36 Primary care physician: Ben Shannon MD DS: Diagnosis Discharge Diagnosis (1) Post concussive syndrome: (2) Closed head injury: Plan Admission findings: Bradycardia, uncontrolled hypertension, mild iron deficiency, hypokalemia, acute elevation in BUN consistent with mild dehydration-overnight telemetry with unremarkable. No significant pauses. Concussion with postconcussion syndrome with retrograde amnesia-significant concussion, unlikely to have any internal bleeding at this point being this far out. Watch for this morning. Physical therapy to work with her with ambulation Somewhat poor balance and this has been since COVID. Physical therapy worked with patient and she will require a wheeled walker for assistance to reduce her fall risk. Uncontrolled hypertension-blood pressure better here today than yesterday. Will continue to monitor as an outpatient when she sees me in the office later this week Mild dehydration with elevated BUN over creatinine-watch fluid balance at home. Had not eaten well that particular day. Reevaluate later Admission status: Patient admitted to observation, likelihood of spending just 1 midnight. If able to walk later today with wheeled walker with assistance without assistance from physical therapy-discharge to home in improving condition. Medications see list. Follow-up with me in the office later this week. DS: Summary Hospital Course Hospital Course: Patient was seen and evaluated in the medical surgical floor, observed overnight with no significant changes overnight. She is back to her normal self. Still has retrograde amnesia for the events. She was able to walk with physical therapy but based on their evaluation she would benefit from a wheeled walker. Prescription written. This will reduce her chances for falls and recurrent hos pitalizations. I will see patient in the office later this week. Status at Discharge Overall status at discharge: patient is back to baseline Time Spent with Patient Time attestation: Total time spent providing and/or coordinating discharge services: Time spent: greater than 30 minutes Exam Constitutional Vital Signs, click to edit/add: Last Vital Signs Temp 97.7 F 12/12/23 04:13 Pulse 55 L 12/12/23 04:13 Resp 18 12/12/23 04:13 BP 152/71 H 12/12/23 04:13 Pulse Ox 95 12/12/23 04:13 O2 Del Method Room Air 12/12/23 04:13 Documenting provider has reviewed patient's vital signs: yes Common normals: no apparent distress Eye Common normals: PERRL and EOMs intact bilaterally Lymph Lymphatic: no lymphadenopathy noted Chest Common normals: inspection of chest normal and palpation of chest normal Respiratory Common normals: normal respiratory effort and no retractions Cardio Common normals: regular rate, regular rhythm and no murmurs GI Common normals: Normal to inspection, nondistended, normoactive bowel sounds present Extremity Common normals: normal to inspection, full ROM and no clubbing, cyanosis or edema Neuro Common normals: oriented x3, CN's II-XII intact bilaterally and moves all extremities DS: Data Data Completed and Pending Labs on day of discharge: Labs from last 24 hours 12/12/23 12/11/23 12/11/23 05:22 18:00 16:43 WBC 6.2 5.8 RBC 3.69 L 4.18 L Hgb 11.3 L 12.7 Hct 33.8 L 38.4 MCV 91.6 91.9 MCH 30.6 30.4 MCHC 33.4 33.1 RDW 13.2 13.2 Plt Count 191 228 MPV 9.3 L 9.5 Neut % (Auto) 47.0 Lymph % (Auto) 37.7 [facility] [facility] % (Auto) 8.5 Eos % (Auto) 6.1 Baso % (Auto) 0.5 Neut # (Auto) 2.7 Lymph # (Auto) 2.2 [facility] # (Auto) 0.5 Eos # (Auto) 0.4 Baso # (Auto) 0.0 Abs Immat Gran (auto) 0.01 Imm/Tot Granulo (auto) 0.2 PT 9.9 INR 0.93 APTT 24.5 Sodium 143 142 Potassium 4.0 4.3 Chloride 109 H 105 Carbon Dioxide 25.0 28.2 Anion Gap 13.0 13.1 BUN 17.0 22.0 H Creatinine 0.74 0.71 Est GFR ( Amer) >60 >60 Est GFR (Non-Af Amer) >60 >60 BUN/Creatinine Ratio 23.0 31.0 Glucose 99 112 H Calcium 8.9 9.4 Total Bilirubin 0.4 AST 23 ALT 23 Alkaline Phosphatase 57 Troponin I High Sens 8.4 Total Protein 7.1 Albumin 3.4 Globulin 3.7 Albumin/Globulin Ratio 0.9 Urine Color Yellow Urine Clarity Clear Urine pH 6.0 Ur Specific [place] 1.025 Urine Protein Negative Urine Glucose (UA) Negative Urine Ketones Trace A Urine Occult Blood Negative Urine Nitrite Negative Urine Bilirubin Negative Urine Urobilinogen 0.2 Ur Leukocyte Esterase Negative Discharge Plan Discharge Disposition: Home, Self-Care Condition: Good Discharge Medications: Continued metoprolol succinate 50 mg tablet extended release 24 hr 50 mg PO .hs gabapentin 300 mg capsule 300 mg PO DAILY metformin 500 mg tablet 1,000 mg PO .am metformin 500 mg tablet 500 mg PO .evening Effer-K 25 mEq tablet, effervescent 25 meq PO BID simvastatin 20 mg tablet 20 mg PO .hs aspirin 81 mg capsule 162 mg PO DAILY docusate sodium [Colace] 100 mg capsule 200 mg PO DAILY cholecalciferol (vitamin D3) 125 mcg (5,000 unit) tablet 5,000 unit PO .evening calcium 600 mg capsule 600 mg PO BID vitamin A-vitamin C-vit E-min Tablet 1 tab PO DAILY ramipril 2.5 mg capsule 2.5 mg PO DAILY Rx Instructions: in morning Activity: increase activity as tolerated Diet: advance to your usual diet Print Language: [place] Patient Instructions: Fall Prevention for Older Adults (DC), Head Injury (DC), Fall Prevention (DC) Forms: Portal Instructions Follow Up Appointments: Dr Shiva Arevalo Dec 20 11:15 am. [phone] Discharge Date/Time: 12/12/23 10:30
--- NOTE | 2023-12-12 09:40 | SWNOTE1 ---
SW had message from physical therapy and pt does need a rolling walker. SW to speak with pt.
[2023-12-12] MEDS: ASPIRIN 81 MG TABLET.DR 162 MG PO (09:43)
[2023-12-12] MEDS: METFORMIN HCL 500 MG TABLET 1000 MG PO (09:43)
[2023-12-12] MEDS: DOCUSATE SODIUM 100 MG CAPSULE 200 MG PO (09:43)
[2023-12-12] MEDS: CALCIUM CARBONATE 600 MG TABLET PO (09:43)
[2023-12-12] MEDS: VITS A,C,E/LUTEIN/MINERALS 1 TABLET 1 TAB PO (09:43)
[2023-12-12] MEDS: LISINOPRIL 10 MG TABLET PO (09:44)
--- NOTE | 2023-12-12 10:26 | SWNOTE1 ---
ITZ met with pt and pt's daughter in room. Pt lives at home with her and normally uses a cane at home. Pt did work with physical therapy and a wheeled walker was recommended. Pt does not have one at home and they would like SW to look in to getting her one thru her Medicare. Pt would like SW to use [facility]. ITZ advised pt that SW will work on this and if she wants to go home and then SW will contact her at home to let her know if Medicare approves and when to get walker. Pt and daughter in agreement. ITZ updated nurse. ITZ faxed over DME order form to Dr. Hairston office for him to sign.
--- NOTE | 2023-12-12 10:42 | SWNOTE1 ---
Medicare Outpatient Observation Notice reviewed and discussed with patient. Pt. verbalized understanding and signed the form. Original given to patient and copy placed in patient?s chart.
--- NOTE | 2023-12-12 14:26 | SWNOTE1 ---
Script, physical therapy note, and demographic sheet have been sent to [facility]ff
--- NOTE | 2023-12-12 15:51 | SWNOTE1 ---
SW spoke to [facility] and they have received referral and they are going to run her Medicare. She stated they will reach out to pt directly in regards to walker. SW called and spoke to pt's [place] and updated him.
--- NOTE | 2023-12-13 13:09 | CM.DCFOLLOWU ---
Person spoke with: pt's How are you feeling? she is sleeping How is your pain? had a headache last evening, but took meds and felt better, had a good meal last night and slept well. Still tired today Did you understand your discharge instructions? yes Do you have any questions about your discharge instructions? no Were you given any prescriptions at discharge? no Were you able to get your prescriptions filled? N/A Do you understand how to take your medications as ordered? yes Do you have any questions about your follow up appointment and do you plan to keep your follow up appointment? no questions, reviewed follow up Is there anything else that you would like to discuss?Asked if they received a call about a walker and they did not. Advised that SW will follow up with [facility] and return call Questions/Comments/Concerns/Other: N/A
== END 2023-12-12 10:30 | disposition home or self-care (01) ==
LOC: ER 19:36 → MS 20:41
PROVIDERS: Personal Emergency Response Attendant; Registered Nurse; Admitting Provider Family Medicine; Emergency Provider Emergency Medicine Emergency Medical Services; PCP Family Medicine; Visit Provider Family Medicine
DX: F07.81 Postconcussional syndrome (principal); S09.8XXA Other specified injuries of head, initial encounter; R00.1 Bradycardia, unspecified; I95.9 Hypotension, unspecified; E61.1 Iron deficiency; E87.6 Hypokalemia; E86.0 Dehydration; R26.89 Other abnormalities of gait and mobility; R41.2 Retrograde amnesia; W19.XXXA Unspecified fall, initial encounter; Z86.16 Personal history of COVID-19
CPT/HCPCS: 36415; 70450; 71045; 72125; 80048; 80053; 81003; 82948; 84484; 85025; 85027; 85610; 85730; 93005; 93242; 97161; 99285; G0378

== ENCOUNTER 2023-12-13 21:46 | Emergency (ER) | payer MEDICARE, OTHER, SELFPAY ==
[2023-12-13 21:51] VITALS: BP 165/57; O2SAT 97
--- OUTSIDE RECORDS SUMMARY | 2023-12-13 21:51 | XMS_ITS | CCD ---
Author Organization [facility] Care Team Providers Care Curing Oven Tender Name Role Phone Jennifer Shannon Primary Care Physician DE ., DR RODRIGUEZ Consulting Unavailable DEVINE ., DR PACK Attending Unavailable DEVINE ., DR PACK Admitting Unavailable HOY ., DR RODRIGUEZ Primary Care Unavailable RAYMOND, DR SHEMAR Granados Consulting Unavailable HOY ., [...] Allergy Eruption of skin (disorder) [facility] [place] (2 sources) Penicillins; Translations: [PENICILLINS] Drug allergy (disorder) 4 [facility] (1 source) No Known Medication Allergies; Translations: [No Known Medication Allergies] Propensity to adverse reactions (disorder) [facility] Repository Medications Current Medications Medication Drug Class(es) [...] day(s), # 180 tab(s), Refills(s) 3, Pharmacy: [facility]/pharmacy #[id number], 161.3, cm, 04/21/21 14:11:00 EST, Height/Length Dosing, 81.8, kg, 04/21/21 14:11:00 EST, Weight Dosing Start Date: 09/16/21 Stop Date: 09/11/22 Status: Ordered Problems Active Problems Problem Classification Problem Date Documented Da te Episodic/Chronic Coronary atherosclerosis and other heart disease (4 sources) Coronary arteriosclerosis; Translations: [Atherosclerotic heart disease of [place] coronary artery without angina pectoris] Onset: 01-22-2022 [...] Dr. Shannon's office made aware also. Normal [facility] Office Visiton 05-09-2023 Follow-up visit [id number] Kelin Rosenberg 1940 F Date Provider Department Center 05/09/2023 271-GARIMA KELLY [facility] Family History Problem Relation Age of Onset Diabetes Mother Coronary artery disease Father Family Status - Relation Status Age at Mother Father Level of Service:70497 MT OFFICE/OUTPATIENT ESTABLISHED MOD MDM 30 MIN Normal [facility] Patient Letter FTMCon 2022 Patient Letter [facility] February 07, 2023 KELIN ROSENBERG [address] [place] [address] : 1940 Dear Kelin, This is a reminder that you are due for an appointment with [facility]. Please contact our office at [phone] to schedule your 10 year colon recall Thank you, [facility] Reminderson 02-07-2023 Reminders -- From: Isabel Dale MA To: Isabel Dale MA; Sent: 02/07/2023 10:24:57 EDT Show up: 02/07/2023 10:25:00 EDT Subject: colon recall Reminder Message [address] Esteban 02/16/13 first recall letter sent Normal [facility] LIPID PROFILEon 04-28-2022 CHOL-HDL RATIO NORM SEE BELOW Normal [facility] Comment on above: Result Comment: 3.3 - 4.4 LOW RISK 4.4 - 7.1 AVERAGE RISK 7.1 - 11.0 MODERATE RISK >11.0 HIGH RISK Performed By: #### L IPID, LIVER #### [facility] [address] [address] [address] Dora Mora Cholesterol [Mass/Vol] 199 mg/dL Normal <=200 [facility] Comment on above: Performed By: #### L IPID, LIVER #### [facility] [address] [address] [address] Dora Mora Cholesterol in HDL [Mass/Vol] 75 mg/dL Critically high 40-60 [facility] Comment on above: Performed By: #### L IPID, LIVER #### [facility] [address] [address] [address] Dora Mora Cholesterol in LDL [Mass/Vol] 86.2 mg/dL Normal [facility] Comment on above: Performed By: #### L IPID, LIVER #### [facility] [address] [address] [address] Dora Mora Cholesterol.total/Cho lesterol in HDL [Mass ratio] 2.7 {ratio} Normal [facility] Comment on above: Performed By: #### L IPID, LIVER #### [facility] [address] [address] [address] Dora Mora HDL NORMAL > or = 60 mg/dl - LOW CARDIOVASCULAR RISK <40 mg/dl - HIGH CARDIOVASCULAR RISK Normal [facility] Comment on above: Performed By: #### L IPID, LIVER #### [facility] [address] [address] [address] Dora Mora LDL CALC NORMAL SEE BELOW Normal [facility] Comment on above: Result Comment: <100 mg/dl OPTIMAL 100 - 129 mg/dl NEAR OR ABOVE OPTIMAL 130 - 159 mg/dl BORDERLINE HIGH 160 - 189 mg/dl HIGH >190 mg/dl VERY HIGH Performed By: #### L IPID, LIVER #### [facility] [address] [place] [address] Dr. Dora Mora Triglyceride [Mass/Vol] 189 mg/dL Critically high <=150 [facility] Comment on above: Performed By: #### L IPID, LIVER #### [facility] [address] [place] [address] Dr. Dora Mora VLDL CALC 37.8 mg/dL Normal [facility] Comment on above: Performed By: #### L IPID, LIVER #### [facility] [address] [place] [address] Dr. Dora Mora LIVER PROFILEon 04-28-2022 Albumin [Mass/Vol] 3.7 g/dL Normal 3.4-5.0 [facility] Comment on above: Performed By: #### L IPID, LIVER #### [facility] [address] [place] [address] Dr. Dora Mora Albumin/Globulin [Mass ratio] 1.0 {ratio} Normal [facility] Comment on above: Performed By: #### L IPID, LIVER #### [facility] [address] [place] [address] Dr. Dora Mora ALP [Catalytic activity/Vol] 62 U/L Normal 46-116 [facility] Comment on above: Performed By: #### L IPID, LIVER #### [facility] [address] [place] [address] Dr. Dora Mora ALT [Catalytic activity/Vol] 18 U/L Normal 14-59 [facility] Comment on above: Performed By: #### L IPID, LIVER #### [facility] [address] [place] [address] Dr. Dora Mora AST [Catalytic activity/Vol] 19 U/L Normal 15-37 [facility] Comment on above: Performed By: #### L IPID, LIVER #### [facility] [address] [place] [address] Dr. Dora Mora BILI, CONJUGATED 0.1 mg/dL Normal 0.0-0.2 [facility] Comment on above: Performed By: #### L IPID, LIVER #### [facility] [address] [place] [address] Dr. Dora Mora Bilirubin [Mass/Vol] 0.5 mg/dL Normal 0.2-1.0 [facility] Comment on above: Performed By: #### L IPID, LIVER #### [facility] [address] [place] [address] Dr. Dora Mora Globulin (S) [Mass/Vol] 3.7 g/dL Normal [facility] Comment on above: Performed By: #### L IPID, LIVER #### [facility] [address] [place] [address] Dr. Dora Mora Protein [Mass/Vol] 7.4 g/dL Normal 6.4-8.2 [facility] Comment on above: Performed By: #### L IPID, LIVER #### [facility] [address] [place] [address] Dr. Dora Mora XR KUB 1 VIEWon [...] SHEMAR ARELLANO Date: 2022-03-22 12:08 Normal [facility] INSULINon 01-21-2022 Insulin 16.5 uIU/mL Normal 2.6-24.9 [facility] Comment on above: Performed By: #### I NSULIN #### [facility] [address] [place] [address] Dr. Dora Mora CBC AUTO DIFFon 01-20-2022 BASO # 0.0 103/ul Normal 0.0-0.1 [facility] Comment on above: Performed By: #### L IPID, LIVER #### [facility] [address] [place] [address] Dr. Dora Mora Basophils/100 WBC (Bld) 0.5 % Normal 0.2-2.0 [facility] Comment on above: Performed By: #### L IPID, LIVER #### [facility] [address] [place] [address] Dr. Dora Mora EO # 0.2 103/ul Normal 0.0-0.7 [facility] Comment on above: Performed By: #### L IPID, LIVER #### [facility] [address] [place] [address] Dr. Dora Mora Eosinophils/100 WBC (Bld) 2.4 % Normal 0.9-7.0 [facility] Comment on above: Performed By: #### L IPID, LIVER #### [facility] [address] [place] [address] Dr. Dora Mora Erythrocyte distribution width (RBC) [Ratio] 12.9 % Normal 11.0-15.0 [facility] Comment on above: Performed By: #### L IPID, LIVER #### [facility] [address] [place] [address] Dr. Dora Mora Hematocrit (Bld) [Volume fraction] 39.9 % Normal 36.0-48.0 [facility] Comment on above: Performed By: #### L IPID, LIVER #### [facility] [address] [place] [address] Dr. Dora Mora Hemoglobin (Bld) [Mass/Vol] 13.4 g/dL Normal 12.0-16.0 [facility] Comment on above: Performed By: #### L IPID, LIVER #### [facility] [address] [place] [address] Dr. Dora Mora IG # 0.07 10e3/ul Critically high 0.00-0.03 [facility] Comment on above: Performed By: #### L IPID, LIVER #### [facility] [address] [place] [address] Dr. Dora Mora IG % 0.9 % Critically high 0.0-0.5 [facility] Comment on above: Performed By: #### L IPID, LIVER #### [facility] [address] [place] [address] Dr. Dora Mora LYMPH # 2.5 103/ul Normal 1.2-3.8 [facility] Comment on above: Performed By: #### L IPID, LIVER #### [facility] [address] [place] [address] Dr. Dora Mora Lymphocytes/100 WBC (Bld) 32.4 % Normal 20.5-60.0 [facility] Comment on above: Performed By: #### L IPID, LIVER #### [facility] [address] [place] [address] Dr. Dora Mora MANUAL DIFF REQ NO Normal [facility] Comment on above: Performed By: #### L IPID, LIVER #### [facility] [address] [place] [address] Dr. Dora Mora MCH (RBC) [Entitic mass] 30.1 pg Normal 26.7-34.0 [facility] Comment on above: Performed By: #### L IPID, LIVER #### [facility] [address] [place] [address] Dr. Dora Mora MCHC (RBC) [Mass/Vol] 33.6 g/dL Normal 29.9-35.2 [facility] Comment on above: Performed By: #### L IPID, LIVER #### [facility] [address] [place] [address] Dr. Dora Mora MCV (RBC) [Entitic vol] 89.7 fL Normal 81.0-99.0 [facility] Comment on above: Performed By: #### L IPID, LIVER #### [facility] [address] [place] [address] Dr. Dora Mora MONO # 0.5 103/ul Normal 0.3-0.8 [facility] Comment on above: Performed By: #### L IPID, LIVER #### [facility] [address] [place] [address] Dr. Dora Mora Monocytes/100 WBC (Bld) 6.5 % Normal 1.7-12.0 [facility] Comment on above: Performed By: #### L IPID, LIVER #### [facility] [address] [place] [address] Dr. Dora Mora NEUT # 4.3 103/ul Normal 1.4-6.5 [facility] Comment on above: Performed By: #### L IPID, LIVER #### [facility] [address] [place] [address] Dr. Dora Mora Neutrophils/100 WBC (Bld) 57.3 % Normal 43.0-75.0 [facility] Comment on above: Performed By: #### L IPID, LIVER #### [facility] [address] [place] [address] Dr. Dora Mora Platelet mean volume (Bld) [Entitic vol] 9.2 fL Critically low 9.5-13.5 [facility] Comment on above: Performed By: #### L IPID, LIVER #### [facility] [address] [place] [address] Dr. Dora Mora PLT 261 103/ul Normal 150-450 [facility] Comment on above: Performed By: #### L IPID, LIVER #### [facility] [address] [place] [address] Dr. Dora Mora RBC 4.45 106/ul Normal 4.20-5.40 [facility] Comment on above: Performed By: #### L IPID, LIVER #### [facility] [address] [place] [address] Dr. Dora Mora WBC 7.6 103/ul Normal 4.0-11.0 [facility] Comment on above: Performed By: #### L IPID, LIVER #### [facility] [address] [place] [address] Dr. Dora Mora FREE THYROXINE INDEX T7on FTI 2.93 Normal 1.30-4.50 [facility] Comment on above: Performed By: #### C MP, TSH, T7, LIPID #### [facility] [address] [address] [address] Dora Mora T3U 38.0 % Normal 30.0-39.0 [facility] Comment on above: Performed By: #### C MP, TSH, T7, LIPID #### [facility] [address] [address] [address] Dora Mora T4 [Mass/Vol] 7.70 ug/dL Normal 4.80-13.90 [facility] Comment on above: Performed By: #### C MP, TSH, T7, LIPID #### [facility] [address] [address] [address] Dora Mora GLYCOHEMOGLOBIN A1Con 2021 ADA RECOMMENDATION SEE BELOW Normal [facility] Comment on above: Result Comment: ADA RECOMMENDED LIMIT 4.0 - 6.0 ADA THERAPEUTIC TARGET < 7.0 ACTION SUGGESTED > 7.0 Performed By: #### A 1C #### [facility] [address] [place] [address] Dr. Dora Mora Glucose [Mass/Vol] 148 mg/dL Normal [facility] Comment on above: Performed By: #### A 1C #### [facility] [address] [address] [address] Dora Mora HbA1c (Bld) [Mass fraction] 6.8 % Critically high 4.5-6.2 [facility] Comment on above: Performed By: #### A 1C #### [facility] [address] [place] [address] Dr. Dora Mora IRONon 01-20-2022 Iron [Mass/Vol] 88.0 ug/dL Normal 50.0-170.0 [facility] Comment on above: Performed By: #### I JOCELYNN, VITAD #### [facility] [address] [place] [address] Dr. Dora Mora LIPID PROFILEon 01-20-2022 CHOL-HDL RATIO NORM SEE BELOW Normal [facility] Comment on above: Result Comment: 3.3 - 4.4 LOW RISK 4.4 - 7.1 AVERAGE RISK 7.1 - 11.0 MODERATE RISK >11.0 HIGH RISK Performed By: #### L IPID, LIVER #### [facility] [address] [address] [address] Dora Mora Cholesterol [Mass/Vol] 180 mg/dL Normal <=200 [facility] Comment on above: Performed By: #### L IPID, LIVER #### [facility] [address] [address] [address] Dora Mora Cholesterol in HDL [Mass/Vol] 64 mg/dL Critically high 40-60 [facility] Comment on above: Performed By: #### L IPID, LIVER #### [facility] [address] [address] [address] Dora Mora Cholesterol in LDL [Mass/Vol] 55.4 mg/dL Normal [facility] Comment on above: Performed By: #### L IPID, LIVER #### [facility] [address] [address] [address] Dora Mora Cholesterol.total/Cho lesterol in HDL [Mass ratio] 2.8 {ratio} Normal [facility] Comment on above: Performed By: #### L IPID, LIVER #### [facility] [address] [address] [address] Dora Mora HDL NORMAL > or = 60 mg/dl - LOW CARDIOVASCULAR RISK <40 mg/dl - HIGH CARDIOVASCULAR RISK Normal [facility] Comment on above: Performed By: #### L IPID, LIVER #### [facility] [address] [address] [address] Dora Mora LDL CALC NORMAL SEE BELOW Normal [facility] Comment on above: Result Comment: <100 mg/dl OPTIMAL 100 - 129 mg/dl NEAR OR ABOVE OPTIMAL 130 - 159 mg/dl BORDERLINE HIGH 160 - 189 mg/dl HIGH >190 mg/dl VERY HIGH Performed By: #### L IPID, LIVER #### [facility] [address] [address] [address] Dora Mora Triglyceride [Mass/Vol] 303 mg/dL Critically high <=150 [facility] Comment on above: Performed By: #### L IPID, LIVER #### [facility] [address] [address] [address] Dora Mora VLDL CALC 60.6 mg/dL Normal [facility] Comment on above: Performed By: #### L IPID, LIVER #### [facility] [address] [address] [address] Dora Mora PROF 14(COMP METB)on 022 Albumin [Mass/Vol] 3.4 g/dL Normal 3.4-5.0 [facility] Comment on above: Performed By: #### C MP, TSH, T7, LIPID #### [facility] [address] [place] [address] Dr. Dora Mora Albumin/Globulin [Mass ratio] 0.9 {ratio} Normal [facility] Comment on above: Performed By: #### C MP, TSH, T7, LIPID #### [facility] [address] [place] [address] Dr. Dora Mora ALP [Catalytic activity/Vol] 61 U/L Normal 46-116 [facility] Comment on above: Performed By: #### C MP, TSH, T7, LIPID #### [facility] [address] [place] [address] Dr. Dora Mora ALT [Catalytic activity/Vol] 22 U/L Normal 14-59 [facility] Comment on above: Performed By: #### C MP, TSH, T7, LIPID #### [facility] [address] [address] [address] Dora Mora Anion gap [Moles/Vol] 10.9 mmol/L Normal [facility] Comment on above: Performed By: #### C MP, TSH, T7, LIPID #### [facility] [address] [address] [address] Dora Mora AST [Catalytic activity/Vol] 13 U/L Critically low 15-37 [facility] Comment on above: Performed By: #### C MP, TSH, T7, LIPID #### [facility] [address] [address] [address] Dora Mora Bilirubin [Mass/Vol] 0.6 mg/dL Normal 0.2-1.0 [facility] Comment on above: Performed By: #### C MP, TSH, T7, LIPID #### [facility] [address] [place] [address] Dr. Dora Mora Calcium [Mass/Vol] 9.4 mg/dL Normal 8.5-10.1 [facility] Comment on above: Performed By: #### C MP, TSH, T7, LIPID #### [facility] [address] [place] [address] Dr. Dora Mora Chloride [Moles/Vol] 103 mmol/L Normal 98-107 [facility] Comment on above: Performed By: #### C MP, TSH, T7, LIPID #### [facility] [address] [place] [address] Dr. Dora Mora CO2 [Moles/Vol] 28.6 mmol/L Normal 21.0-32.0 [facility] Comment on above: Performed By: #### C MP, TSH, T7, LIPID #### [facility] [address] [place] [address] Dr. Dora Mora Creatinine [Mass/Vol] 0.86 mg/dL Normal 0.55-1.02 [facility] Comment on above: Performed By: #### C MP, TSH, T7, LIPID #### [facility] [address] [place] [address] Dr. Dora Mora EGFR-AF [place] >60 Normal >=60 [facility] Comment on above: Performed By: #### C MP, TSH, T7, LIPID #### [facility] [address] [place] [address] Dr. Dora Mora EGFR-NON AF [place] >60 Normal >=60 [facility] Comment on above: Performed By: #### C MP, TSH, T7, LIPID #### [facility] [address] [place] [address] Dr. Dora Mora Globulin (S) [Mass/Vol] 3.6 g/dL Normal [facility] Comment on above: Performed By: #### C MP, TSH, T7, LIPID #### [facility] [address] [place] [address] Dr. Dora Mora Glucose [Mass/Vol] 167 mg/dL Critically high 74-106 [facility] Comment on above: Performed By: #### C MP, TSH, T7, LIPID #### [facility] [address] [place] [address] Dr. Dora Mora Potassium [Moles/Vol] 4.5 mmol/L Normal 3.5-5.1 [facility] Comment on above: Performed By: #### C MP, TSH, T7, LIPID #### [facility] [address] [place] [address] Dr. Dora Mora Protein [Mass/Vol] 7.0 g/dL Normal 6.4-8.2 [facility] Comment on above: Performed By: #### C MP, TSH, T7, LIPID #### [facility] [address] [place] [address] Dr. Dora Mora Sodium [Moles/Vol] 138 mmol/L Normal 136-145 [facility] Comment on above: Performed By: #### C MP, TSH, T7, LIPID #### [facility] [address] [place] [address] Dr. Dora Mora Urea nitrogen [Mass/Vol] 20.0 mg/dL Critically high 7.0-18.0 [facility] Comment on above: Performed By: #### C MP, TSH, T7, LIPID #### [facility] [address] [place] [address] Dr. Dora Mora Urea nitrogen/Creatinine [Mass ratio] 23.3 mg/mg Normal [facility] Comment on above: Performed By: #### C MP, TSH, T7, LIPID #### [facility] [address] [place] [address] Dr. Dora Mora TSHon 01-20-2022 TSH 1.657 uIU/mL Normal 0.358-3.740 [facility] Comment on above: Performed By: #### C MP, TSH, T7, LIPID #### [facility] [address] [place] [address] Dr. Dora Mora VITAMIN D 25 OHon 01-20-2022 VIT D 25-OH 96.7 ng/mL Normal [facility] Comment on above: Performed By: #### I JOCELYNN, VITAD #### [facility] [address] [place], [place] [address] Dr. Dora Mora VIT D RANGES SEE BELOW Normal [facility] Comment on above: Result Comment: <20 ng/mL Vit D deficient 20 - <30 ng/mL Vit D insufficient 30 - 100 ng/mL Vit D sufficient >100 ng/mL Potential Toxicity Performed By: #### I JOCELYNN VITAD #### [facility] [address] [address] [address] Dora Mora Vital Signs Date Time Vital Sign Value Performing Clinician Faci davy 04-02-2022 08:12-0500 Blood Pressure Location Ruiz DEVINE [facility] 04-02-2022 08:12-0500 Diastolic blood pressure 72 mm[Hg] Ruiz DEVINE [facility] 04-02-2022 08:12-0500 Heart rate 68 /min Ruiz DEVINE [facility] 04-02-2022 08:12-0500 Respiratory rate 16 /min Ruiz DEVINE [facility] 04-02-2022 08:12-0500 Systolic blood pressure 124 mm[Hg] Ruiz DEVINE [facility] Encounters Encounter Date Encounter Type Care Provider Facility Start: 04-02-2024 ambulatory Ruiz Howei ty:SIM Duff Start: 05-09-2023 End: 05-09-2023 ambulatory GARIMA [facility] Start: 02-07-2023 ambulatory Quique Sebastian Facility:[facility] Start: 06-09-2022 End: 07-07-[address] JENNIFER SHANNON . Facility: Start: 04-28-2022 End: 04-29-[address] JENNIFER SHANNON . Facility:[facility] Start: 04-02-2022 End: 04-02-2022 Patient encounter procedure Ruiz DEVINE [facility] Start: 03-22-2022 End: 03-23-[address] [...] Provider Eliane santiago 04-18-2020 SARS-CoV-2 (COVID-19 ) [id number] vaccine Ruiz DEVINE [facility] Comment on above: Result Comment: pt d oes not have her card and can not remember the dates Payers Date Payer Category Payer Medicare [id number] 1959 Private Health Insurance [id number] 1940 Unknown [id number] [id number] [id number] 1940 Unknown [id number] [id number] [id number] 1940 Unknown [id number] [id number] [id number] 1940 Unknown [id number] 2.16.84 [id number] 1940 Unknown [id number] [id number] Social History Date Type Detail Facility Start: 04-21-2021 Tobacco smoking status Never s moked tobacco (finding) [facility] Tobacco smoking status Never [facility] Sex Assigned At Female [facility] Functional Status Date Assessment Result Facility 04-02-2022 Functional Status N/A [facility] Progress note 05-09-2023 Note Date & Type Note Facility 05-09-2023 Note [facility] Note Chief Complaint: Patient here [...] Return to clini (more content not included)... [facility] Hospital Discharge instructions 04-02-2022 Note Date & Type Note Facility 04-02-2022 Hospital Discharg e instructions Patient Education 04/02/2022 08:53:58 Kidney Stones, [facility] Kidney Stones Kidney stones are rock-like masses [...] Follow these instructions at home: Medicines Take ncnx-led-xasybdk and prescription medicines only as told by [...] 09/20/2008 Document Revised: 08/21/2019 Document Reviewed: 08/21/2019 [employer] Patient Education 2020 [employer]. Follow Up Care 03/30/2021 09:32:03 With:SYBIL RODRIGUEZ, Ruiz Rangel, URL Address: [address] [place], [place] [address] [address]- When: Unknown [facility] Evaluation + Plan note Note Date & Type Note Facility Evaluation + Plan note No data available for this section [facility] Progress note Note Date & Type Note Facility Progress note No data available for this section [facility] Summary Purpose Family History No Family History Records FoundNo Family History Records FoundNo Family History Records Found Advance Directives No Advanced Directives Records FoundNo Advanced Directives Records FoundNo Advanced Directives Records Found Additional Source Comments Patient Care team informatio n (unrecognized section and content) Personnel Name: Jennifer Shannon MD Address: Address: [address] [place] [id number] INFORMATION SOURCE (unrecogn ized section and content) DATE CREATED AUTHOR 07/24/2022 [facility] DATE CREATED AUTHOR AUTHOR'S ORGANIZ ATION 05/26/2023 [facility] DATE CREATED AUTHOR AUTHOR'S ORGANIZ ATION 06/21/2023 [facility] FOR RECORDS PERTAINING TO PATIENTS WHO ARE [...] BE BASED ON THE PRIMARY CLINICAL RECORDS. [facility] [employer] provides no warranty or guarantee of the accuracy or completeness of information in this document.
[2023-12-13 21:55] VITALS: BP 165/57; PULSE 67; TEMP 36.9; O2SAT 98; BMI 25.8
[2023-12-13 22:00] VITALS: O2SAT 98
--- NOTE | 2023-12-13 22:06 | CT_ITS ---
The [address] [address] Patient Name: GREG TODD MRN: [id number] date: 1940 Sex: F Assigned Patient Location: ER Current Patient Location: ER Accession/Order Number: [id number] Exam Date: 12/13/2023 22:20 Report Date: 12/13/2023 23:39 At the request of: MIKY SEBASTIAN Procedure: CT head/brain wo con EXAM: CT head/brain wo con HISTORY: Slurred speech. TECHNIQUE: Axial CT scans through the head were obtained without IV contrast administration. Dose reduction techniques were achieved by using: automated exposure control and/or adjustment of mA and /or kV according to patient size and/or the use of an iterative reconstruction technique. COMPARISON: 12/11/2023. FINDINGS: Mild periventricular low attenuation in the cerebral hemispheres without associated mass effect. The small amount of subarachnoid hemorrhage in the right precentral sulcus is unchanged. The small amount of subarachnoid hemorrhage at the right temporal lobe and medial left frontal lobe has resolved. Development of a 0.9 x 0.8 cm hyperdense subarachnoid hemorrhage at the left insular cortex. The amount of subarachnoid hemorrhage at the left temporal lobe and in the superior cerebellar cistern and quadrigeminal cistern has decreased. Small bilateral frontal and parietal subdural hygromas are again demonstrated, measuring about 7 mm on the right and 8 mm on the left. A tiny amount of isodense density within the right subdural hygroma is unchanged, probably due to a trace amount of acute hemorrhagic component in this right subdural hygroma. The brainstem and the cerebellum appear normal. No depressed skull fracture is present. The ventricular system and cortical sulci are prominent. No area of abnormal mass effect is shown. The visualized orbits show no gross mass. The visualized paranasal sinuses show no air-fluid levels. Mastoid air cells are clear. CT/CT head/brain wo con IMPRESSION: Subarachnoid hemorrhage in the supra and infratentorial compartments with some areas showing interval decrease as well as small acute subarachnoid hemorrhage at the left insula as described above. Small bilateral frontal and parietal subdural hygromas with probably trace amount of acute component on the right, unchanged. No midline shift. No CT evidence of acute infarction. Dr. Sebastian was notified of the critical results by myself at 11:22 PM. Electronically authenticated by: AILYN AIKEN Date: 12/13/2023 23:39
--- NOTE | 2023-12-13 22:07 | ED_ITS ---
HPI - Altered Mental Status General Chief Complaint: Altered Mental Status Stated Complaint: Altered Mental Status Time Seen by Provider: 12/13/23 21:58 Source: patient and family Mode of arrival: walk-in History of Present Illness HPI narrative: patient was seen here a couple of days ago and fall and sustaining a concussion. was confused. observed over night. Today family felt her words were slurred. She was talking to a family member on the phone. Her husbandd states she was not talking loud enough. Family member felt some of her words were slurred and advised her to come in. She admits to a headache when she coughs. She denies ex tremity weakness or numbness. She feels her words are clear Related Data Home Medications ?Medication ?Instructions ?Recorded ?Confirmed aspirin 81 mg capsule 162 mg PO DAILY 12/11/23 12/13/23 calcium 600 mg capsule 600 mg PO BID 12/11/23 12/13/23 cholecalciferol (vitamin D3) 125 5,000 unit PO .evening 12/11/23 12/13/23 mcg (5,000 unit) tablet docusate sodium 100 mg capsule 200 mg PO DAILY 12/11/23 12/13/23 (Colace) gabapentin 300 mg capsule 300 mg PO DAILY 12/11/23 12/13/23 metformin 500 mg tablet 1,000 mg PO .am 12/11/23 12/13/23 metformin 500 mg tablet 500 mg PO .evening 12/11/23 12/11/23 metoprolol succinate 50 mg 50 mg PO .hs 12/11/23 12/13/23 tablet,extended release 24 hr potassium bicarbonate-citric acid 25 meq PO BID 12/11/23 12/13/23 25 mEq effervescent tablet (Effer-K) ramipril 2.5 mg capsule 2.5 mg PO DAILY 12/11/23 12/13/23 simvastatin 20 mg tablet 20 mg PO .hs 12/11/23 12/13/23 vitamin A-vitamin C-vit E-min 1 tab PO DAILY 12/11/23 12/13/23 tablet Allergies Allergy/AdvReac Type Severity Reaction Status Date / Time penicillins Allergy Unknown Unknown Uncoded 12/11/23 17:02 Review of Systems ROS Status of ROS 10 or more systems reviewed and unremark able except as noted in history and below PFSH PFSH Social History Highest level of school completed/degree received: Associate degree: occupational, technical, vocational program Do you think of yourself as: straight/heterosexual Gender Identity: female Exam Constitutional Vital Signs, click to edit/add: Last Vital Signs Temp 98.5 F 12/13/23 21:55 Pulse 61 12/14/23 00:02 Resp 16 12/14/23 00:02 BP 153/88 H 12/14/23 00:02 Pulse Ox 97 12/14/23 00:02 O2 Del Method Room Air 12/13/23 21:55 Common normals: no apparent distress, average body habitus, oriented x3, no limitations, healthy appearing, alert and well nourished HENIA Common normals: normocephalic and head/scalp atraumatic Eye Common normals: EOMs intact bilaterally and conjunctivae normal Respiratory Common normals: normal respiratory effort, no retractions, no use of accessory muscles and clear to auscultation bilaterally Cardio Common normals: regular rate, regular rhythm, S1 normal heart sound and S2 normal heart sound Extremity Common normals: normal to inspection and full ROM Neuro Common normals: oriented x3, CN's II-XII intact bilaterally, moves all extremities and no focal motor deficits Psych Appearance: grossly normal Course Vital Signs Vital signs: Vital Signs Blood Pressure 165/57 H 12/13/23 21:51 Pulse Oximetry 97 12/13/23 21:51 Temperature 98.5 F 12/13/23 21:55 Pulse Rate 61 12/14/23 00:02 Respiratory Rate 16 12/14/23 00:02 Blood Pressure 153/88 H 12/14/23 00:02 Pulse Oximetry 97 12/14/23 00:02 Oxygen Delivery Method Room Air 12/13/23 21:55 MDM - Altered Mental Status MDM Narrative Medical decision making narrative: patient fell striking her head a couple of days ago and admitted for observation with concussion. following AM improved and discharged home. tonight family states patient's speech was slurred. Patient denies slurred speech and speech is clear now. Does admit to a headache when she coughs. Neuro exam is normal. CT with findings of subarachnoid hemorrhage. [facility] stroke consult called and pending. Consulted with [facility] stroke physician who recommend consultation with Trauma. Discussed with Trauma Surgeon and patient accepted for transfer to [facility] ER Lab Data Labs: Lab Results 12/13/23 Range/Units 22:10 WBC 6.1 (4.0-11.0) 10^3/uL RBC 4.18 L (4.20-5.40) 10^6/uL Hgb 12.8 (12.0-16.0) g/dL Hct 37.8 (36.0-48.0) % MCV 90.4 (81.0-99.0) fL MCH 30.6 (26.7-34.0) pg MCHC 33.9 (29.9-35.2) g/dL RDW 13.3 (11.0-15.0) % Plt Count 217 (150-450) 10^3/uL MPV 9.1 L (9.5-13.5) fL Neut % (Auto) 49.0 (43.0-75.0) % Lymph % (Auto) 34.5 (20.5-60.0) % [place] % (Auto) 8.8 (1.7-12.0) % Eos % (Auto) 6.7 (0.9-7.0) % Baso % (Auto) 0.7 (0.2-2.0) % Neut # (Auto) 3.0 (1.4-6.5) 10^3/uL Lymph # (Auto) 2.1 (1.2-3.8) 10^3/uL [place] # (Auto) 0.5 (0.3-0.8) 10^3/uL Eos # (Auto) 0.4 (0.0-0.7) 10^3/uL Baso # (Auto) 0.0 (0.0-0.1) 10^3/uL Abs Immat Gran (auto) 0.02 (0.00-0.03) 10^3/uL Imm/Tot Granulo (auto) 0.3 (0.0-0.5) % Sodium 141 (136-145) mmol/L Potassium 4.2 (3.5-5.1) mmol/L Chloride 105 (98-107) mmol/L Carbon Dioxide 28.9 (21.0-32.0) mmol/L Anion Gap 11.3 BUN 20.0 H (7.0-18.0) mg/dL Creatinine 0.84 (0.55-1.02) mg/dL Est GFR ( Amer) >60 (>=60) Est GFR (Non-Af Amer) >60 (>=60) BUN/Creatinine Ratio 23.8 Glucose 119 H (74-106) mg/dL Calcium 9.2 (8.5-10.1) mg/dL Total Bilirubin 0.3 (0.2-1.0) mg/dL AST 9 L (15-37) U/L ALT 18 (14-59) U/L Alkaline Phosphatase 57 (46-116) U/L Total Protein 6.7 (6.4-8.2) g/dL Albumin 3.2 L (3.4-5.0) g/dL Globulin 3.5 g/dL Albumin/Globulin Ratio 0.9 Imaging Data Chest x-ray: Radiologist's impression: ITS Impressions Head CT 12/13/23 22:06 IMPRESSION: Subarachnoid hemorrhage in the supra and infratentorial compartments with some areas showing interval decrease as well as small acute subarachnoid hemorrhage at the left insula as described above. Small bilateral frontal and parietal subdural hygromas with probably trace amount of acute component on the right, unchanged. No midline shift. No CT evidence of acute infarction. Dr. Sebastian was notified of the critical results by myself at 11:22 PM. Electronically authenticated by: AILYN AIKEN Date: 12/13/2023 23:39 Critical Care Time Critical Care Time Total Critical Care Time: 45 Discharge Plan Discharge Chief Complaint: Altered Mental Status Clinical Impression: Subarachnoid hemorrhage Patient Disposition: Xfer Acute [facility]
[2023-12-13 22:19] LABS: Basophils Percent Auto 0.7 % (0.2-2.0); Eosinophils Absolute Auto 0.4 10^3/uL (0.0-0.7); Eosinophils Percent Auto 6.7 % (0.9-7.0); Hematocrit 37.8 % (36.0-48.0); Hemoglobin 12.8 g/dL (12.0-16.0); Immature Granulocytes Abs Auto 0.02 10^3/uL (0.00-0.03); Immature Granulocytes Pct Auto 0.3 % (0.0-0.5); Lymphocytes Absolute Auto 2.1 10^3/uL (1.2-3.8); Lymphocytes Percent Auto 34.5 % (20.5-60.0); Mean Corpuscular HGB Conc 33.9 g/dL (29.9-35.2); Mean Corpuscular Hemoglobin 30.6 pg (26.7-34.0); Mean Corpuscular Volume 90.4 fL (81.0-99.0); Mean Platelet Volume 9.1 fL (9.5-13.5); Monocytes Absolute Auto 0.5 10^3/uL (0.3-0.8); Monocytes Percent Auto 8.8 % (1.7-12.0); Platelet Count 217 10^3/uL (150-450); Red Blood Count 4.18 10^6/uL (4.20-5.40); Red Cell Distribution Width 13.3 % (11.0-15.0); White Blood Count 6.1 10^3/uL (4.0-11.0)
[2023-12-13 22:36] LABS: Alanine Aminotransferase 18 U/L (14-59); Albumin Globulin Ratio 0.9; Albumin Level 3.2 g/dL (3.4-5.0); Alkaline Phosphatase 57 U/L (46-116); Anion Gap 11.3; Aspartate Amino Transferase 9 U/L (15-37); BUN Creatinine Ratio 23.8; Bilirubin Total 0.3 mg/dL (0.2-1.0); Calcium 9.2 mg/dL (8.5-10.1); Carbon Dioxide 28.9 mmol/L (21.0-32.0); Chloride 105 mmol/L (98-107); Estimated GFR (African America >60 (>=60); Estimated GFR (Non-African Ame >60 (>=60); Globulin 3.5 g/dL; Glucose 119 mg/dL (74-106); Potassium 4.2 mmol/L (3.5-5.1); Sodium 141 mmol/L (136-145); Total Protein 6.7 g/dL (6.4-8.2)
[2023-12-13 23:00] VITALS: BP 159/86; O2SAT 97
[2023-12-13 23:01] VITALS: BP 159/86; PULSE 67; O2SAT 98
[2023-12-14] VITALS (23 sets, daily range): BP systolic 148–170; BP diastolic 66–88; PULSE 61; O2SAT 76–100
--- NOTE | 2023-12-14 00:04 | PC.NURSE ---
Neuro assessment unchanged from prior.
[2023-12-14] MEDS: METOPROLOL SUCCINATE 50 MG TAB.ER.24H PO (01:57)
[2023-12-14 02:17] LABS: Bilirubin Urine NEGATIVE (NEGATIVE); Blood Urine NEGATIVE (NEGATIVE); Clarity Urine CLEAR (CLEAR); Color Urine LT. YELLOW (YELLOW); Glucose Urine UA NEGATIVE (NEGATIVE); Ketones Urine NEGATIVE (NEGATIVE); Leukocyte Esterase Urine NEGATIVE (NEGATIVE); Nitrite Urine NEGATIVE (NEGATIVE); Protein Urine NEGATIVE (NEG/TRACE); Specific Gravity Urine 1.015 (1.005-1.025); Urine Microscopic Indicated NO; pH Urine 6.5 (5.0-9.0)
== END 2023-12-14 03:10 | disposition short-term general hospital (02) ==
PROVIDERS: Emergency Provider Internal Medicine; PCP Family Medicine
DX: I60.9 Nontraumatic subarachnoid hemorrhage, unspecified (principal)
CPT/HCPCS: 36415; 70450; 80053; 81003; 85025; 99285

== ENCOUNTER 2024-03-26 08:40 | Outpatient (OUT) | payer MEDICARE, OTHER, SELFPAY ==
--- NOTE | 2024-03-26 08:47 | XR_ITS ---
The [address] [address] Patient Name: GREG TODD MRN: [id number] date: 1940 Sex: F Assigned Patient Location: [facility] Current Patient Location: Accession/Order Number: [id number] Exam Date: 03/26/2024 08:49 Report Date: 03/27/2024 09:00 At the request of: RAMONE DEVINE Procedure: XR abdomen 1V EXAMINATION: XR abdomen 1V HISTORY: Kidney Stone COMPARISON: XR KUB 03/22/2022 FINDINGS: KIDNEY/URETER - RIGHT: No visible renal or ureteral calcifications. KIDNEY/URETER - LEFT: No visible renal or ureteral calcifications. PELVIS: No visible ureteral stones. BOWEL: No abnormal dilation or deviation. BONES: No acute abnormality. OTHER: Negative. No abnormal gaseous collections. XR/XR abdomen 1V IMPRESSION: 1. No appreciable urinary tract calculi. Electronically authenticated by: PEARL ALAS Date: 03/27/2024 09:00
== END 2024-03-26 08:41 | disposition home or self-care (01) ==
LOC: RAD 08:41
PROVIDERS: PCP Family Medicine; Visit Provider Urology
DX: N20.0 Calculus of kidney (principal)
CPT/HCPCS: 74018

== ENCOUNTER 2024-06-05 08:54 | Outpatient (OUT) | payer MEDICARE, OTHER, SELFPAY ==
--- OUTSIDE RECORDS SUMMARY | 2024-06-05 09:00 | XMS_ITS | CCD ---
Author Organization [facility] Care Team Providers Care Builder Operator Name Role Phone Jennifer Shannon Primary Care Physician DE ., DR RODRIGUEZ Consulting Unavailable WELCH ., DR PACK Attending Unavailable WELCH ., DR PACK Admitting Unavailable HOY ., DR RODRIGUEZ Primary Care Unavailable HARRISON, DR SHEMAR Granados Consulting Unavailable HOY ., [...] HOY ., DR RODRIGUEZ Primary Care Unavailable TYRESE ORTEGA Attending Unavailable NO PCP, NO PCP Primary Care Unavailable AL-JUBOURI, WARNER A Admitting Unavailabl e CARDIOLOGY, [facility] Consulting Unavailable JHONNY JACKSON Consulting Unavailable DESHAWN PIRES Referring Unavailable NO PCP, NO PCP Primary Care Unavailable LOCO AYOUB Referring Unavailable NO PCP, NO PCP Primary Care Unavailable JODIE GARCIA Referring Unavailable NO PCP, NO PCP Primary Care Unavailable LOCO AYOUB Referring Unavailable NO PCP, NO PCP Primary Care Unavailable ZANE, RABBIA L Referring Unavailable NO PCP, NO PCP Primary Care Unavailable LOCO AYOUB Referring Unavailable NO PCP, NO PCP Primary Care Unavailable AL-JUBOURI, WARNER A Referring Unavailabl e NO PCP, NO PCP Primary Care Unavailable Ruiz WELCH Attending Unavailable GARIMA GRIGGS Attending Unavailable Allergies Allergy Classification Reported Allergen(s) Allergy Type Date of Onset Reaction(s) Facility (3 sources) Penicillin; Translations: [penicillin] Drug Allergy Eruption of skin (disorder) [facility] [place] (4 sources) Penicillins; Translations: [PENICILLINS] Drug allergy (disorder) 4 [facility] Repository (1 source) No Known Medication Allergies; Translations: [No Known Medication Allergies] Propensity to adverse reactions (disorder) [facility] Repository Medications Current Medications Medication Drug Class(es) Dates Sig (Normalized) Sig (Original) aspirin 81 mg chewable tablet (1 source) Platelet Aggregation Inhibitor, Nonsteroidal Anti-inflammatory Drug Start: 01-03-2019 aspirin 81 mg Chew Tab 162 mg = 2 tab(s), Chewed, Daily Start Date: 01/03/19 Status: Ordered calcium carbonate 500 mg oral tablet (2 sources) Start: 01-03-2019 take 1 tablet by mouth [...] Ordered docusate sodium 100 mg oral capsule (2 sources) Start: 01-03-2019 take 1 capsule by mouth twice daily as needed for constipation Colace 100 mg Cap 100 mg = 1 cap(s), Oral, BID, PRN for constipation, # 20 cap(s), Refills(s) 0 Start Date: 01/03/19 Status: Ordered gabapentin 300 mg oral capsule (2 sources) Anti-epileptic Agent Start: 01-03-2019 take 1 capsule by mouth twice daily Neurontin 300 mg Cap 300 mg = 1 cap(s), Oral, BID, Refills(s) 0 Start Date: 01/03/19 Status: Ordered latanoprost 0.05 mg/ml ophthalmic solution (1 source) Prostaglandin Analog Start: 01-03-2019 Xalatan 0.005% Soln-Opth 1 drop(s), OPTH, Once a day (at bedtime) Start Date: 01/03/19 Status: Ordered metFORMIN hydrochloride 500 mg oral tablet (2 sources) Biguanide Start: 01-03-2019 take 1 tablet by mouth twice daily Glucophage 500 mg Tab 500 mg = 1 tab(s), Oral, BID Start Date: 01/03/19 Status: Ordered metoprolol tartrate 50 mg oral tablet (2 sources) beta-Adrenergic Ancelmo Start: 01-03-2019 take 1 tablet by mouth once daily Metoprolol succinate 50 mg ER Tablet 50 mg, Oral, Daily Start Date: 01/03/19 Status: Ordered nitroglycerin 0.4 mg sublingual tablet (1 source) Nitrate Vasodilator Start: 01-03-2019 NitroStat 0.4 mg Tab 0.4 mg = 1 tab(s), SubLingual, q5min Start Date: 01/03/19 Status: Ordered ramipril 2.5 mg oral capsule (2 sources) Angiotensin Converting Enzyme Inhibitor Start: 01-03-2019 take 1 capsule by mouth once daily Altace 2.5 mg Cap 2.5 mg = 1 cap(s), Oral, Daily Start Date: 01/03/19 Status: Ordered simvastatin 20 mg oral tablet (2 sources) HMG-CoA Reductase Inhibitor Start: 01-03-2019 take 1 [...] day(s), # 180 tab(s), Refills(s) 3, Pharmacy: [facility]/pharmacy #[id number], 161.3, cm, 04/21/21 14:11:00 EST, Height/Length Dosing, 81.8, kg, 04/21/21 14:11:00 EST, Weight Dosing Start Date: 09/16/21 Stop Date: 09/11/22 Status: Ordered K-Effervescent 25 mEq oral tablet, effervescent (1 source) Start: 01-30-2024 take 1 tablet by mouth twice daily K-Effervescent 25 mEq oral tablet, effervescent 25 mEq = 1 tab(s), Oral, BID, # 180 tab(s), Refills(s) 3, Pharmacy: [facility]/pharmacy #[id number], 161.3, cm, 04/02/22 8:19:00 EST, Height/Length Dosing, 85, kg, 04/02/22 8:19:00 EST, Weight Dosing Start Date: 01/30/24 Status: Ordered Problems Active Problems Problem Classification Problem Date Documented Da te Episodic/Chronic Acute cerebrovascular disease (1 source) Nontraumatic intracerebral hemorrhage, unspecified; Translations: [Nontraumatic intracerebral hemorrhage, unspecified] Onset: 12-14-2023 Chronic Calculus of urinary tract (12 sources) Kidney stone; Translations: [Calculus of kidney] Onset: 03-22-2022 Episodic Coronary atherosclerosis and other heart disease (5 sources) Coronary arteriosclerosis; Translations: [Atherosclerotic heart disease of [place] coronary artery without angina pectoris] Onset: 01-22-2022 04-13-2021 Chronic Diabetes mellitus without complication (3 sources) Diabetes mellitus; Translations: [Type 2 diabetes mellitus without complications] Onset: 01-22-2022 04-13-2021 Chronic Disorders of lipid metabolism (7 sources) Hyperlipidemia; Translations: [Hyperlipidemia, unspecified] Onset: 01-22-2022 01-23-2019 Chronic Diverticulosis and diverticulitis (2 sources) Diverticular disease 04-13-2021 Chronic E Codes: Fall (2 sources) Unspecified fall, subsequent encounter; Translations: [Unspecified fall, subsequent encounter] Onset: 06-04-2024 Episodic E Codes: Fall (1 source) Fall Onset: 12-14-2023 Essential hypertension (3 sources) Benign hypertension; Translations: [Essential (primary) hypertension] Onset: 01-22-2022 01-23-2019 Chronic Genitourinary symptoms and ill-defined conditions (6 sources) Stress incontinence (female) (male); Translations: [Genuine stress incontinence] Onset: 03-27-2022 Chronic Glaucoma (2 sources) Glaucoma 04-13-2021 Chronic Hemorrhoids (2 sources) Internal hemorrhoids 01-03-2019 Episodic Nonmalignant breast conditions (2 sources) Fibrocystic disease of breast 04-13-2021 Chronic Nutritional deficiencies (1 source) Vitamin D deficiency, unspecified; Translations: [VITAMIN D DEFICIENCY UNSPECIFIED] Onset: 01-22-2022 Chronic Other and unspecified benign neoplasm (2 sources) Pseudopolyposis of colon 01-03-2019 Episodic Other bone disease and musculoskeletal deformities (2 sources) Osteopenia 04-13-2021 Episodic Other gastrointestinal disorders (1 source) Disorder of intestine; Translations: [Disease of intestine, unspecified] Onset: 04-02-2022 Episodic Other gastrointestinal disorders (2 sources) Bowel problem 03-30-2021 Episodic Other nervous system disorders (4 sources) Other abnormalities of gait and mobility; Translations: [OTHER ABNORMALITIES GAIT AND MOBILITY] Onset: 06-09-2022 Episodic Other nutritional; endocrine; and metabolic disorders (2 sources) Body mass index 30+ - obesity 04-21-2021 Chronic Other skin disorders (2 sources) Inflamed seborrheic keratosis 04-21-2021 Episodic Other skin disorders (2 sources) Senile hyperkeratosis 01-23-2019 Episodic Residual codes; unclassified (1 source) Pain, unspecified; Translations: [Pain, unspecified] Onset: 12-14-2023 Episodic Spondylosis; intervertebral disc disorders; other back problems (2 sources) Spinal stenosis 04-13-2021 Episodic Syncope (1 source) Syncope and collapse; Translations: [Syncope and collapse] Onset: 12-14-2023 Episodic Unclassified (1 source) Head Injury With Unknown LOC Onset: 12-14-2023 Unclassified (1 source) 2 days ago fell struck her head was repeating questions. Admitted then d/c home next day back at baseline. Today returns for slurred speech according to family. Ct subarachnoid bleed missed by radiology 2 days ago according to ER attending. Takes baby asa daily. Dr Horton accepts to [facility] ER Onset: 12-14-2023 Unclassified (1 source) Other ventricular tachycardia; Translations: [Other ventricular tachycardia] Onset: 06-04-2024 Varicose veins of lower extremity (2 sources) Varicose veins of lower extremity 04-13-2021 Episodic Past or Other Problems Problem Classification Problem Date Documented Da te Episodic/Chronic Deficiency and other anemia (1 source) Anemia, [...] unspecified; Translations: [INSOMNIA UNSPECIFIED] Onset: 01-20-2022 Episodic Unclassified (1 source) Other ventricular tachycardia; Translations: [Other ventricular tachycardia] Onset: 06-04-2024 Results Test Name Value Interpretation Reference Range Facility Office Visiton 06-04-2024 Follow-up visit [id number] Yudy Rosenberg 1940 F Date Provider Department Center 06/04/2024 [facility]GARIMA GRIGGS [facility] Family History Problem Relation Age of Onset Diabetes Mother Coronary artery disease Father Family Status - Relation Status Age at Mother Father Level of Service:[address]505 [place] OFFICE/OUTPATIENT ESTABLISHED MOD MDM 30 MIN Normal [facility] Ambulatory Visit Summaryon 1 06-03-2023 Ambulatory Visit Summary Ambulatory Visit Summary KELIN ROSENBERG :1940 Visit Date:04/02/2024 Ambulatory Visit Instructions Your Diagnosis Kidney stone Your Care Team Attending Physician - SYBIL RODRIGUEZ, Ruiz Rangel Primary Care Physician - Jennifer Shannon MD This Is Your Medications List potassium bicarbonate (K-Effervescent 25 mEq oral tablet, effervescent) Contact prescribing physician if questions or concerns calcium-vitamin D (calcium carbonate 500 mg +D) docusate (Colace 100 mg Cap) gabapentin (Neurontin 300 mg Cap) metformin (Glucophage 500 mg Tab) metoprolol (Metoprolol succinate 50 mg ER Tablet) ramipril (Altace 2.5 mg Cap) simvastatin (simvastatin 20 mg Tab) Procedures Performed Excisional biopsy (04/28/2021), ESWL - Extracorporeal shockwave lithotripsy for renal calculus (05/03/2013), Cystoscopic insertion of ureteric stent (04/26/2013), Cystoscopy (02/02/2010), Cystoscopic insertion of ureteric stent (01/28/2010), Cystourethroscopy with dilation of urethral stricture (01/19/2010), 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 Discharge Vitals Temperature (Oral) 37 ???C Heart Rate (Peripheral) 61 Respiratory Rate 16 Blood Pressure 124/58 Height 161.3 cm Height 64 in Weight 67.2 kg Weight 148.15 lb BMI 25.83 What to do next You Need to Schedule the Following Appointments Follow Up with SYBIL RODRIGUEZ, LUCIEN Ellis When: Where: [facility] [address], [place] [address]- Medications What How Much When Instructions Unchanged potassium bicarbonate (K-Effervescent 25 mEq oral tablet, effervescent) 1 Tablets By Mouth 2 times a day Unchanged calcium-vitamin D (calcium carbonate 500 mg +D) 1 Tablets By Mouth 2 times a day Contact prescribing physician if questions or concerns Unchanged docusate (Colace 100 mg Cap) 1 Capsules By Mouth 2 times a day as needed for for constipation Contact prescribing physician if questions or concerns Unchanged gabapentin (Neurontin 300 mg Cap) 1 Capsules By Mouth 2 times a day Contact prescribing physician if questions or concerns Unchanged metformin (Glucophage 500 mg Tab) 1 Tablets By Mouth 2 times a day Contact prescribing physician if questions or concerns Unchanged metoprolol (Metoprolol succinate 50 mg ER Tablet) 50 Milligram By Mouth Every day Contact prescribing physician if questions or concerns Unchanged ramipril (Altace 2.5 mg Cap) 1 Capsules By Mouth Every day Contact prescribing physician if questions or concerns Unchanged simvastatin (simvastatin 20 mg Tab) 1 Tablets By Mouth Once a day (at bedtime) Contact prescribing physician if questions or concerns Allergies penicillin (Rash) Problems Ongoing - Any problem that you are currently receiving treatment for. Benign hypertension BMI 31.0-31.9,adult Bowel trouble CAD (coronary artery disease) Diabetes Diverticulosis Fibrocystic breast disease Glaucoma History of kidney stones Hyperlipidemia Kidney stone Mixed incontinence urge and stress Osteopenia Seborrheic keratosis Seborrheic keratosis, inflamed Spinal stenosis Varicose veins of legs Historical - Any problem that you are no longer receiving treatment for. Inflammatory polyps of colon Internal hemorrhoids Nephrolithiasis Stress incontinence Patient Survey You may receive a survey via text or e-mail asking about your office visit. Please share your experience with us by completing your survey. We appreciate your feedback and thank you for choosing us for your care. Education Materials Dietary Guidelines to Help Prevent Kidney Stones Kidney stones are deposits of minerals and salts that form inside your kidneys. Your risk of developing kidney stones may be greater depending on your diet, your lifestyle, the medicines you take, and whether you have certain medical conditions. Most people can lower their risks of developing kidney stones by following these dietary guidelines. Your dietitian may give you more specific instructions depending on your overall health and the type of kidney stones you tend to develop. What are tips for following this plan? Reading food labels ??? Choose foods with no salt added or low-salt labels. Limit your salt (sodium) intake to less than 1,500 mg a day. ??? Choose foods with calcium for each meal and snack. Try to eat about 300 mg of calcium at each meal. Foods that contain 200???500 mg of calcium a serving include: ? 8 oz (237 mL) of milk, owreyds-vaqpocfiaarl-n airy milk, and calcium-fortifiedfruit juice. Calcium-fortified means that calcium has been added to these drinks. ? 8 oz (237 mL) of kefir, yogurt, and soy yogurt. ? 4 oz (114 g) of tofu. ? 1 oz (28 g) of cheese. ? 1 cup (150 g) of dried figs. ? 1 cup (91 g) of cooked broccoli. ? One 3 oz (85 g) can of sardines or mackerel. Most people need 1,000???1,500 mg of calcium a d (more content not included)... Normal [facility] Reminderson 04-02-2024 Reminders Reminders From: Selma Waite To: [facility] - Administrative; Sent: 04/02/2024 11:19:40 EST Show up: 07/17/2025 11:19:00 EDT Subject: 2 yr F/U Due Date/Time: 04/01/2026 11:19:00 EST Reminder/Recall Patient needs scheduled for a 2 yr f/u with a KUB Normal [facility] Urology Office/Clinic Noteon 04-02-2024 Urology Office/Clinic Note Urology Office/Clinic Note Chief Complaint 2yr w/ KUB HPI Staff 83yr old female pt here for 2yr f/u visit with KUB. S/p ESWL done 05/03/13. Previous Dx: kidney stones, stress incontinence, bowel trouble *Effer-K 25mEq BID Dysuria: denies Incomplete bladder emptying: denies Hematuria: denies Frequency: 2-3x per day Urgency: denies Nocturia: sometimes, 1x Stream: good stream Leaking: denies Post void dripping: denies Wearing pads/ Depends: denies Urge incontinence:denies Stress incontinence: denies Incontinence without Sensory Awareness: denies Abdominal pain: denies Flank pain: denies Sexual complaints: denies History of Present Illness Tests reviewed: UA, KUB I have reviewed the previous health record information and history for this patient from Dr. Welch. I have reviewed and verified the staff HPI to be accurate for this encounter. Review of Systems PHQ Score Initial Depression Screen Score: 0 SCORE ROS - Provider Constitutional: denies weight loss, denies hot flashes. Eyes: denies eye problems. Gastrointestinal: denies nausea, denies vomiting. Cardiovascular: denies chest pain or angina. Integumentary: no dryness Musculoskeletal: denies musculoskeletal symptoms. ENMT: denies otolaryngeal symptoms. Respiratory: no shortness of breath. Heme/Lymph: denies easy bleeding tendency, denies easy bruising tendency. Psychiatric: no confusion, no anxiety. Genitourinary: See HPI. Physical Exam Vitals & Measurements T: 37 ???C(Oral) HR: 61(Peripheral) RR: 16 BP: 124/58 HT: 64 in HT: 161.3 cm WT: 67.2 kg WT: 148.15 lb BMI: 25.83 General Appearance: alert, no distress, well nourished, well developed female. Assessment/Plan Pt here with her today. 1. Kidney stone (N20.0: Calculus of kidney) KUB 03/22/22 - Neg. KUB 03/26/24 [facility] - Neg. UA shows trace leuks. Asx. Taking Effer-K 25mEq BID. Cont wo changes. No kidney stones issues since prior OV. Reviewed imaging with pt. Recommended pt to increase fluid intake to ten to twelve 16 oz bottles a day, preferably water, clear pop, and sugar free lemonade. Follow up 2 yr with KUB or sooner if needed. Pt understands and agrees with plan. -High fluid intake will help with kidney stone prevention and BP. Had brain bleed since prior OV, change in fine motor fxn with writing. Follow-up With When Contact Information SYBIL RODRIGUEZ, Ruiz Rangel, URL [facility] [address], [place] [address]- Additional Instructions: 2 yr with KUB Patient Education Dietary Guidelines to Help Prevent Kidney Stones I, Gracia Nunn, personally scribed for Dr. Welch on 04/02/2024 11:09:20. . Documentation recorded by the scribe, Gracia Nunn, accurately reflects the services(s) I performed and decisions made by me. Authenticated by Dr. Welch on 04/02/2024 11:13:27. Problem List/Past Medical History Ongoing Benign hypertension BMI 31.0-31.9,adult Bowel trouble CAD (coronary artery disease) Diabetes Diverticulosis Fibrocystic breast disease Glaucoma History of kidney stones Hyperlipidemia Kidney stone Mixed incontinence urge and stress Osteopenia Seborrheic keratosis Seborrheic keratosis, inflamed Spinal stenosis Varicose veins of legs Historical Inflammatory polyps of colon Internal hemorrhoids Nephrolithiasis Stress incontinence Procedure/Surgical History Excisional biopsy (04/28/2021), ESWL - Extracorporeal shockwave lithotripsy for renal calculus (05/03/2013), Cystoscopic insertion of ureteric stent (04/26/2013), Cystoscopy (02/02/2010), Cystoscopic insertion of ureteric stent (01/28/2010), Cystourethroscopy with dilation of urethral stricture (01/19/2010), 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 Medications Altace 2.5 mg Cap, 2.5 mg= 1 cap(s), Oral, Daily calcium carbonate 500 mg +D, 1 tab(s), Oral, BID Colace 100 mg Cap, 100 mg= 1 cap(s), Oral, BID, PRN Glucophage 500 mg Tab, 500 mg= 1 tab(s), Oral, BID K-Effervescent 25 mEq oral tablet, effervescent, 25 mEq= 1 tab(s), Oral, BID, 3 refills Metoprolol succinate 50 mg ER Tablet, 50 mg, Oral, Daily Neurontin 300 mg Cap, 300 mg= 1 cap(s), Oral, BID simvastatin 20 mg Tab, 20 mg= 1 tab(s), Oral, Once a day (at bedtime) Allergies penicillin (Rash) Social History Alcohol - Denies Alcohol Use, 01/03/2019 Never., 03/31/2024 Substance Abuse - Denies Substance Abuse, 01/03/2019 Never., 03/31/2024 Tobacco - Denies Tobacco Use, 03/23/2019 Never (less than 100 in lifetime) Tobacco Use:. Never Smokeless Tobacco Use:., 04/02/2024 Family History Cardiac arrest: Father. Diabetes mellitus type 2: Father. Primary malignant neoplasm of colon: Mother. Immunizations Vaccine Date Status Comments SARS-CoV-2 (COVID-19) mRNA-1273 vaccine 04/03/2021 Recorded SARS-CoV-2 (COVID-19) mRNA-1273 vaccine 09/25/2020 Record (more content not included)... Normal [facility] Comment on above: Result Comment: Elec tronically Signed By: Ruiz WELCH MD\.br\Date and Time Signed: 04/02/24 11:13 EST\.br\Electronically Co-Signed By: Gracia Nunn\.br\Date and Time Co-Signed: 04/02/24 11:12 EST BASIC METABOLIC PANLon 12-19 Anion gap [Moles/Vol] 7 mmol/L Normal 5-15 [facility] Comment on above: Performed By: #### C MP, CBCA, 1798-8, 67269-4, 5643-2, 3040-3, PINR, [id number] #### [facility] ([id number]) [address] [place] [address] Calcium [Mass/Vol] 9.3 mg/dL Normal 8.5-10.5 [facility] Comment on above: Performed By: #### C MP, CBCA, 1798-8, 13789-6, 5643-2, 3040-3, PINR, [id number] #### [facility] ([id number]) [address], [address] [place] [address] Chloride [Moles/Vol] 104 mmol/L Normal 98-109 [facility] Comment on above: Performed By: #### C MP, CBCA, 8-8, 76535-8, 5643-2, 3040-3, PINR, [id number] #### [facility] ([id number]) [address], [address] [place] [address] CO2 [Moles/Vol] 26 mmol/L Normal 22-32 [facility] Comment on above: Performed By: #### C MP, CBCA, 1797-8, 12977-5, 5643-2, 3040-3, PINR, [id number] #### [facility] ([id number]) [address], [address] [place] [address] Creatinine [Mass/Vol] 0.59 mg/dL Normal 0.40-1.00 [facility] Comment on above: Result Comment: METH OD TRACEABLE TO IDMS STANDARD Performed By: #### C MP, CBCA, 1797-8, 42243-5, 5643-2, 3040-3, PINR, [id number] #### [facility] ([id number]) [address], [address] [place] [address] GFR/1.73 sq M.predicted among non-blacks MDRD (S/P/Bld) [Vol rate/Area] 89 mL/min/{1.73_m2} Normal >59 [facility] Comment on above: Result Comment: Reported eGFR is based on the CKD-EPI 2020 equation that does not use a race coefficient. Performed By: #### C MP, CBCA, 1798-8, 09031-7, 5643-2, 3040-3, PINR, [id number] #### [facility] ([id number]) [address], [address] [place] [address] Glucose [Mass/Vol] 125 mg/dL High 65-99 [facility] Comment on above: Performed By: #### C MP, CBCA, 1798-8, 50413-2, 5643-2, 3040-3, PINR, [id number] #### [facility] ([id number]) [address], [facility] [address] [place] [address] Potassium [Moles/Vol] 3.9 mmol/L Normal 3.5-5.0 [facility] Comment on above: Performed By: #### C MP, CBCA, 1798-8, 18970-8, 5643-2, 3040-3, PINR, 60115-8 #### [facility] ([id number]) [address], [address] [place] [address] Sodium [Moles/Vol] 137 mmol/L Normal 134-146 [facility] Comment on above: Performed By: #### C MP, CBCA, 1798-8, 56089-8, 5643-2, 3040-3, PINR, [id number] #### [facility] ([id number]) [address] [place] [address] Urea nitrogen [Mass/Vol] 20 mg/dL Normal 5-27 [facility] Comment on above: Performed By: #### C MP, CBCA, 1798-8, 40463-4, 5643-2, 3040-3, PINR, 65889-7 #### [facility] ([id number]) [address] [place] [address] CBC AND AUTO DIFFon 12-20-19 24 ABSOLUTE BASOPHIL 0.0 X10E9/L Normal 0.0-0.2 [facility] Comment on above: Performed By: #### C MP, CBCA, 1798-8, 52755-3, 5643-2, 3040-3, PINR, [id number] #### [facility] ([id number]) [address], [address] [place] [address] ABSOLUTE NEUTROPHIL 4.6 X10E9/L Normal 1.5-6.6 [facility] Comment on above: Performed By: #### C MP, CBCA, 8-8, 42763-2, 5643-2, 3040-3, PINR, 10301-4 #### [facility] ([id number]) [address] [address] Basophils/100 WBC (Bld) 0.3 % Normal [facility] Comment on above: Performed By: #### C MP, CBCA, 1797-8, 32258-8, 5643-2, 3040-3, PINR, [id number] #### [facility] ([id number]) [address] [place] [address] Eosinophils (Bld) [#/Vol] 0.2 10*3/uL Normal 0.0-0.4 [facility] Comment on above: Performed By: #### C MP, CBCA, 8-8, 86408-9, 5643-2, 3040-3, PINR, 82693-1 #### [facility] ([id number]) [address] [address] Eosinophils/100 WBC (Bld) 3.0 % Normal [facility] Comment on above: Performed By: #### C MP, CBCA, 1798-8, 81166-8, 5643-2, 3040-3, PINR, 18322-1 #### [facility] ([id number]) [address] [address] [address] [place] [address] Erythrocyte distribution width (RBC) [Ratio] 14.7 % Normal 11.5-15.0 [facility] Comment on above: Performed By: #### C MP, CBCA, 1798-8, 59565-9, 5643-2, 3040-3, PINR, 62489-6 #### [facility] ([id number]) [address], [address] [place] [address] Hematocrit (Bld) [Volume fraction] 36.5 % Normal 35-47 [facility] Comment on above: Performed By: #### C MP, CBCA, 1798-8, 89048-9, 5643-2, 3040-3, PINR, 05654-1 #### [facility] ([id number]) [address], [address] [place] [address] Hemoglobin (Bld) [Mass/Vol] 12.7 g/dL Normal 11.7-15.5 [facility] Comment on above: Performed By: #### C MP, CBCA, 8-8, 21673-3, 5643-2, 3040-3, PINR, 78688-5 #### [facility] ([id number]) [address], [address] [place] [address] Lymphocytes (Bld) [#/Vol] 1.6 10*3/uL Normal 1.0-3.5 [facility] Comment on above: Performed By: #### C MP, CBCA, 1798-8, 20621-4, 5643-2, 3040-3, PINR, 48026-4 #### [facility] ([id number]) [address], [address] [place] [address] Lymphocytes/100 WBC (Bld) 22.4 % Normal [facility] Comment on above: Performed By: #### C MP, CBCA, 1798-8, 15278-2, 5643-2, 3040-3, PINR, 90594-2 #### [facility] ([id number]) [address] [address] [place] [address] MCH (RBC) [Entitic mass] 31.3 pg Normal 27-34 [facility] Comment on above: Performed By: #### C MP, CBCA, 1798-8, 95596-3, 5643-2, 3040-3, PINR, 86214-3 #### [facility] ([id number]) [address] [address] [place] [address] MCHC (RBC) [Mass/Vol] 34.8 g/dL Normal 32-36 [facility] Comment on above: Performed By: #### C MP, CBCA, 8-8, 29679-0, 5643-2, 3040-3, PINR, 76532-4 #### [facility] ([id number]) [address] [address] MCV (RBC) [Entitic vol] 90 fL Normal 80-100 [facility] Comment on above: Performed By: #### C MP, CBCA, 8-8, 03275-2, 5643-2, 3040-3, PINR, 36916-0 #### [facility] ([id number]) [address] [address] Monocytes (Bld) [#/Vol] 0.6 10*3/uL Normal 0-0.9 [facility] Comment on above: Performed By: #### C MP, CBCA, 8-8, 29603-8, 5643-2, 3040-3, PINR, 02762-9 #### [facility] ([id number]) [address] [address] Monocytes/100 WBC (Bld) 8.5 % Normal [facility] Comment on above: Performed By: #### C MP, CBCA, 1798-8, 77887-0, 5643-2, 3040-3, PINR, 65359-6 #### [facility] ([id number]) [address], [facility] [address] [place] [address] Neutrophils/100 WBC (Bld) 65.8 % Normal [facility] Comment on above: Performed By: #### C MP, CBCA, 1798-8, 64033-1, 5643-2, 3040-3, PINR, 67564-1 #### [facility] ([id number]) [address], [facility] [address] [place] [address] Platelet mean volume (Bld) [Entitic vol] 7.1 fL Normal 7-12 [facility] Comment on above: Performed By: #### C MP, CBCA, 1798-8, 52562-1, 5643-2, 3040-3, PINR, 24938-7 #### [facility] ([id number]) [address] [address] [place] [address] Platelets (Bld) [#/Vol] 264 10*3/uL Normal 150-450 [facility] Comment on above: Performed By: #### C MP, CBCA, 1798-8, 79178-0, 5643-2, 3040-3, PINR, 67816-5 #### [facility] ([id number]) [address] [address] [place] [address] RBC COUNT 4.05 X10E12/L Normal 3.80-5.20 [facility] Comment on above: Performed By: #### C MP, CBCA, 1798-8, 24726-6, 5643-2, 3040-3, PINR, 60719-9 #### [facility] ([id number]) [address] [address] [place] [address] WBC (Bld) [#/Vol] 7.0 10*3/uL Normal 4.0-11.0 [facility] Comment on above: Performed By: #### C MP, CBCA, 1798-8, 25724-9, 5643-2, 3040-3, PINR, 63011-3 #### [facility] ([id number]) [address], [address] [place] [address] Glucose Glucometer (BldC) [M ass/Vol]on 12-20-2023 Glucose [Mass/Vol] 130 mg/dL High 65-99 [facility] Glucose [Mass/Vol] 136 mg/dL High 65-99 [facility] BASIC METABOLIC PANLon 12-18 Anion gap [Moles/Vol] 10 mmol/L Normal 5-15 [facility] Comment on above: Performed By: #### C MP, CBCA, 1798-8, 60817-5, 5643-2, 3040-3, PINR, 30791-2 #### [facility] ([id number]) [address], [address] [place] [address] Calcium [Mass/Vol] 9.3 mg/dL Normal 8.5-10.5 [facility] Comment on above: Performed By: #### C MP, CBCA, 1798-8, 51866-3, 5643-2, 3040-3, PINR, 84262-6 #### [facility] ([id number]) [address], [address] [place] [address] Chloride [Moles/Vol] 104 mmol/L Normal 98-109 [facility] Comment on above: Performed By: #### C MP, CBCA, 1798-8, 01468-2, 5643-2, 3040-3, PINR, 40136-8 #### [facility] ([id number]) [address], [address] [place] [address] CO2 [Moles/Vol] 25 mmol/L Normal 22-32 [facility] Comment on above: Performed By: #### C MP, CBCA, 1798-8, 38111-6, 5643-2, 3040-3, PINR, 83513-3 #### [facility] ([id number]) [address], [address] [place] [address] Creatinine [Mass/Vol] 0.58 mg/dL Normal 0.40-1.00 [facility] Comment on above: Result Comment: METH OD TRACEABLE TO IDMS STANDARD Performed By: #### C MP, CBCA, 1798-8, 10166-1, 5643-2, 3040-3, PINR, 74576-8 #### [facility] ([id number]) [address], [address] [place] [address] GFR/1.73 sq M.predicted among non-blacks MDRD (S/P/Bld) [Vol rate/Area] 90 mL/min/{1.73_m2} Normal >59 [facility] Comment on above: Result Comment: Reported eGFR is based on the CKD-EPI 2020 equation that does not use a race coefficient. Performed By: #### C MP, CBCA, 1798-8, 85750-2, 5643-2, 3040-3, PINR, 79453-4 #### [facility] ([id number]) [address], [address] [place] [address] Glucose [Mass/Vol] 105 mg/dL High 65-99 [facility] Comment on above: Performed By: #### C MP, CBCA, 1798-8, 56176-8, 5643-2, 3040-3, PINR, 65515-8 #### [facility] ([id number]) [address], [address] [place] [address] Potassium [Moles/Vol] 4.0 mmol/L Normal 3.5-5.0 [facility] Comment on above: Result Comment: SPEC IMEN HEMOLYZED, RESULTS INCREASED MODERATELY HEMOLYZED Performed By: #### C MP, CBCA, 1798-8, 20145-9, 5643-2, 3040-3, PINR, 25031-6 #### [facility] ([id number]) [address], [address] [place] [address] Sodium [Moles/Vol] 139 mmol/L Normal 134-146 [facility] Comment on above: Performed By: #### C MP, CBCA, 1798-8, 19212-6, 5643-2, 3040-3, PINR, 52896-3 #### [facility] ([id number]) [address], [facility] [address] [place] [address] Urea nitrogen [Mass/Vol] 17 mg/dL Normal 5-27 [facility] Comment on above: Performed By: #### C MP, CBCA, 1798-8, 04958-1, 5643-2, 3040-3, PINR, 99291-0 #### [facility] ([id number]) [address] [address] CBC AND AUTO DIFFon 12-19-19 24 ABSOLUTE BASOPHIL 0.0 X10E9/L Normal 0.0-0.2 [facility] Comment on above: Performed By: #### C MP, CBCA, 1798-8, 35301-3, 5643-2, 3040-3, PINR, 69711-8 #### [facility] ([id number]) [address] [address] ABSOLUTE NEUTROPHIL 3.5 X10E9/L Normal 1.5-6.6 [facility] Comment on above: Performed By: #### C MP, CBCA, 1798-8, 95543-3, 5643-2, 3040-3, PINR, 75539-1 #### [facility] ([id number]) [address] [address] Basophils/100 WBC (Bld) 0.5 % Normal [facility] Comment on above: Performed By: #### C MP, CBCA, 1798-8, 92333-9, 5643-2, 3040-3, PINR, 45854-9 #### [facility] ([id number]) [address] [address] [place] [address] Eosinophils (Bld) [#/Vol] 0.2 10*3/uL Normal 0.0-0.4 [facility] Comment on above: Performed By: #### C MP, CBCA, 8-8, 66465-7, 5643-2, 3040-3, PINR, 75950-9 #### [facility] ([id number]) [address] [address] Eosinophils/100 WBC (Bld) 3.3 % Normal [facility] Comment on above: Performed By: #### C MP, CBCA, 1797-8, 30541-9, 5643-2, 3040-3, PINR, 07899-4 #### [facility] ([id number]) [address] [address] Erythrocyte distribution width (RBC) [Ratio] 14.6 % Normal 11.5-15.0 [facility] Comment on above: Performed By: #### C MP, CBCA, 1797-8, 55942-3, 5643-2, 3040-3, PINR, 41910-1 #### [facility] ([id number]) [address] [address] [place] [address] Hematocrit (Bld) [Volume fraction] 35.6 % Normal 35-47 [facility] Comment on above: Performed By: #### C MP, CBCA, 8-8, 49903-6, 5643-2, 3040-3, PINR, 59924-6 #### [facility] ([id number]) [address] [address] [place] [address] Hemoglobin (Bld) [Mass/Vol] 12.1 g/dL Normal 11.7-15.5 [facility] Comment on above: Performed By: #### C MP, CBCA, 1798-8, 81205-8, 5643-2, 3040-3, PINR, 15715-8 #### [facility] ([id number]) [address] [address] [place] [address] Lymphocytes (Bld) [#/Vol] 2.0 10*3/uL Normal 1.0-3.5 [facility] Comment on above: Performed By: #### C MP, CBCA, 1798-8, 93139-7, 5643-2, 3040-3, PINR, 27220-4 #### [facility] ([id number]) [address] [address] Lymphocytes/100 WBC (Bld) 31.9 % Normal [facility] Comment on above: Performed By: #### C MP, CBCA, 1798-8, 74555-8, 5643-2, 3040-3, PINR, 22902-9 #### [facility] ([id number]) [address], [facility] [address] [place] [address] MCH (RBC) [Entitic mass] 30.2 pg Normal 27-34 [facility] Comment on above: Performed By: #### C MP, CBCA, 1798-8, 14201-0, 5643-2, 3040-3, PINR, 20414-6 #### [facility] ([id number]) [address] [address] [place] [address] MCHC (RBC) [Mass/Vol] 33.9 g/dL Normal 32-36 [facility] Comment on above: Performed By: #### C MP, CBCA, 1798-8, 60982-7, 5643-2, 3040-3, PINR, 39479-7 #### [facility] ([id number]) [address] [address] [place] [address] MCV (RBC) [Entitic vol] 89 fL Normal 80-100 [facility] Comment on above: Performed By: #### C MP, CBCA, 1798-8, 12623-3, 5643-2, 3040-3, PINR, 73304-7 #### [facility] ([id number]) [address], [address] [place] [address] Monocytes (Bld) [#/Vol] 0.4 10*3/uL Normal 0-0.9 [facility] Comment on above: Performed By: #### C MP, CBCA, 1798-8, 95030-1, 5643-2, 3040-3, PINR, 97158-8 #### [facility] ([id number]) [address] [address] [place] [address] Monocytes/100 WBC (Bld) 7.2 % Normal [facility] Comment on above: Performed By: #### C MP, CBCA, 1798-8, 73532-5, 5643-2, 3040-3, PINR, 75134-1 #### [facility] ([id number]) [address] [address] [place] [address] Neutrophils/100 WBC (Bld) 57.1 % Normal [facility] Comment on above: Performed By: #### C MP, CBCA, 1798-8, 33825-6, 5643-2, 3040-3, PINR, 34521-8 #### [facility] ([id number]) [address], [address] [place] [address] Platelet mean volume (Bld) [Entitic vol] 7.3 fL Normal 7-12 [facility] Comment on above: Performed By: #### C MP, CBCA, 1798-8, 98807-7, 5643-2, 3040-3, PINR, 95449-7 #### [facility] ([id number]) [address], [facility] [address] [place] [address] Platelets (Bld) [#/Vol] 264 10*3/uL Normal 150-450 [facility] Comment on above: Performed By: #### C MP, CBCA, 1798-8, 24042-9, 5643-2, 3040-3, PINR, 24683-4 #### [facility] ([id number]) [address], [address] [place] [address] RBC COUNT 4.00 X10E12/L Normal 3.80-5.20 [facility] Comment on above: Performed By: #### C MP, CBCA, 1798-8, 36316-2, 5643-2, 3040-3, PINR, 60524-9 #### [facility] ([id number]) [address], [address] [place] [address] WBC (Bld) [#/Vol] 6.1 10*3/uL Normal 4.0-11.0 [facility] Comment on above: Performed By: #### C MP, CBCA, 1798-8, 47966-2, 5643-2, 3040-3, PINR, 14203-7 #### [facility] ([id number]) [address], [address] [place] [address] Glucose Glucometer (BldC) [M ass/Vol]on 12-19-2023 Glucose [Mass/Vol] 182 mg/dL High 65-99 [facility] Glucose [Mass/Vol] 147 mg/dL High 65-99 [facility] Glucose [Mass/Vol] 192 mg/dL High 65-99 [facility] Glucose [Mass/Vol] 122 mg/dL High 65-99 [facility] BASIC METABOLIC PANLon 12-17 Anion gap [Moles/Vol] 10 mmol/L Normal 5-15 [facility] Comment on above: Performed By: #### C MP, CBCA, 1798-8, 36682-2, 5643-2, 3040-3, PINR, 97830-0 #### [facility] ([id number]) [address], [address] [place] [address] Calcium [Mass/Vol] 9.5 mg/dL Normal 8.5-10.5 [facility] Comment on above: Performed By: #### C MP, CBCA, 1798-8, 14478-3, 5643-2, 3040-3, PINR, 26449-3 #### [facility] ([id number]) [address], [address] [place] [address] Chloride [Moles/Vol] 104 mmol/L Normal 98-109 [facility] Comment on above: Performed By: #### C MP, CBCA, 1798-8, 48491-3, 5643-2, 3040-3, PINR, 06379-0 #### [facility] ([id number]) [address], [address] [place] [address] CO2 [Moles/Vol] 27 mmol/L Normal 22-32 [facility] Comment on above: Performed By: #### C MP, CBCA, 1798-8, 03501-8, 5643-2, 3040-3, PINR, 25835-1 #### [facility] ([id number]) [address], [address] [place] [address] Creatinine [Mass/Vol] 0.66 mg/dL Normal 0.40-1.00 [facility] Comment on above: Result Comment: METH OD TRACEABLE TO IDMS STANDARD Performed By: #### C MP, CBCA, 1798-8, 12530-1, 5643-2, 3040-3, PINR, 19981-5 #### [facility] ([id number]) [address], [address] [place] [address] GFR/1.73 sq M.predicted among non-blacks MDRD (S/P/Bld) [Vol rate/Area] 87 mL/min/{1.73_m2} Normal >59 [facility] Comment on above: Result Comment: Reported eGFR is based on the CKD-EPI 2020 equation that does not use a race coefficient. Performed By: #### C MP, CBCA, 1798-8, 92506-6, 5643-2, 3040-3, PINR, 97139-8 #### [facility] ([id number]) [address], [address] [place] [address] Glucose [Mass/Vol] 94 mg/dL Normal 65-99 [facility] Comment on above: Performed By: #### C MP, CBCA, 1798-8, 98849-6, 5643-2, 3040-3, PINR, 75538-1 #### [facility] ([id number]) [address], [address] [place] [address] Potassium [Moles/Vol] 3.9 mmol/L Normal 3.5-5.0 [facility] Comment on above: Performed By: #### C MP, CBCA, 1798-8, 62467-8, 5643-2, 3040-3, PINR, 79343-4 #### [facility] ([id number]) [address], [address] [place] [address] Sodium [Moles/Vol] 141 mmol/L Normal 134-146 [facility] Comment on above: Performed By: #### C MP, CBCA, 1798-8, 32448-6, 5643-2, 3040-3, PINR, 58133-2 #### [facility] ([id number]) [address], [address] [place] [address] Urea nitrogen [Mass/Vol] 17 mg/dL Normal 5-27 [facility] Comment on above: Performed By: #### C MP, CBCA, 1798-8, 61013-4, 5643-2, 3040-3, PINR, 02284-9 #### [facility] ([id number]) [address], [address] [place] [address] CBC AND AUTO DIFFon 12-18-19 24 ABSOLUTE BASOPHIL 0.0 X10E9/L Normal 0.0-0.2 [facility] Comment on above: Performed By: #### C MP, CBCA, 1798-8, 88875-4, 5643-2, 3040-3, PINR, 44663-3 #### [facility] ([id number]) [address], [address] [place] [address] ABSOLUTE NEUTROPHIL 3.9 X10E9/L Normal 1.5-6.6 [facility] Comment on above: Performed By: #### C MP, CBCA, 1798-8, 58444-8, 5643-2, 3040-3, PINR, 92943-0 #### [facility] ([id number]) [address], [address] [place] [address] Basophils/100 WBC (Bld) 0.5 % Normal [facility] Comment on above: Performed By: #### C MP, CBCA, 8-8, 30612-0, 5643-2, 3040-3, PINR, 80829-4 #### [facility] ([id number]) [address], [address] [place] [address] Eosinophils (Bld) [#/Vol] 0.3 10*3/uL Normal 0.0-0.4 [facility] Comment on above: Performed By: #### C MP, CBCA, 1798-8, 45936-3, 5643-2, 3040-3, PINR, 28432-2 #### [facility] ([id number]) [address], [address] [place] [address] Eosinophils/100 WBC (Bld) 3.6 % Normal [facility] Comment on above: Performed By: #### C MP, CBCA, 1798-8, 68579-4, 5643-2, 3040-3, PINR, 42404-2 #### [facility] ([id number]) [address], [address] [place] [address] Erythrocyte distribution width (RBC) [Ratio] 14.5 % Normal 11.5-15.0 [facility] Comment on above: Performed By: #### C MP, CBCA, 1798-8, 69115-8, 5643-2, 3040-3, PINR, 86714-0 #### [facility] ([id number]) [address], [address] [place] [address] Hematocrit (Bld) [Volume fraction] 36.7 % Normal 35-47 [facility] Comment on above: Performed By: #### C MP, CBCA, 1798-8, 99116-9, 5643-2, 3040-3, PINR, 68837-1 #### [facility] ([id number]) [address], [address] [place] [address] Hemoglobin (Bld) [Mass/Vol] 12.7 g/dL Normal 11.7-15.5 [facility] Comment on above: Performed By: #### C MP, CBCA, 8-8, 62677-5, 5643-2, 3040-3, PINR, 33958-6 #### [facility] ([id number]) [address] [address] [place] [address] Lymphocytes (Bld) [#/Vol] 2.3 10*3/uL Normal 1.0-3.5 [facility] Comment on above: Performed By: #### C MP, CBCA, 1798-8, 13277-1, 5643-2, 3040-3, PINR, 92627-9 #### [facility] ([id number]) [address], [address] [place] [address] Lymphocytes/100 WBC (Bld) 32.6 % Normal [facility] Comment on above: Performed By: #### C MP, CBCA, 1798-8, 31113-1, 5643-2, 3040-3, PINR, 58493-0 #### [facility] ([id number]) [address] [address] [place] [address] MCH (RBC) [Entitic mass] 31.2 pg Normal 27-34 [facility] Comment on above: Performed By: #### C MP, CBCA, 1798-8, 54868-2, 5643-2, 3040-3, PINR, 06675-5 #### [facility] ([id number]) [address] [address] [place] [address] MCHC (RBC) [Mass/Vol] 34.7 g/dL Normal 32-36 [facility] Comment on above: Performed By: #### C MP, CBCA, 8-8, 05101-4, 5643-2, 3040-3, PINR, 37388-3 #### [facility] ([id number]) [address] [address] MCV (RBC) [Entitic vol] 90 fL Normal 80-100 [facility] Comment on above: Performed By: #### C MP, CBCA, 8-8, 91276-9, 5643-2, 3040-3, PINR, 83817-6 #### [facility] ([id number]) [address] [address] [place] [address] Monocytes (Bld) [#/Vol] 0.6 10*3/uL Normal 0-0.9 [facility] Comment on above: Performed By: #### C MP, CBCA, 1798-8, 59441-2, 5643-2, 3040-3, PINR, 16338-5 #### [facility] ([id number]) [address] [address] [place] [address] Monocytes/100 WBC (Bld) 7.9 % Normal [facility] Comment on above: Performed By: #### C MP, CBCA, 1798-8, 65813-1, 5643-2, 3040-3, PINR, 76653-9 #### [facility] ([id number]) [address] [facility] [address] [place] [address] Neutrophils/100 WBC (Bld) 55.4 % Normal [facility] Comment on above: Performed By: #### C MP, CBCA, 1798-8, 92182-1, 5643-2, 3040-3, PINR, 88225-8 #### [facility] ([id number]) [address] [address] [place] [address] Platelet mean volume (Bld) [Entitic vol] 7.4 fL Normal 7-12 [facility] Comment on above: Performed By: #### C MP, CBCA, 1798-8, 46392-6, 5643-2, 3040-3, PINR, 25104-0 #### [facility] ([id number]) [address] [address] Platelets (Bld) [#/Vol] 255 10*3/uL Normal 150-450 [facility] Comment on above: Performed By: #### C MP, CBCA, 1798-8, 60775-5, 5643-2, 3040-3, PINR, 49830-1 #### [facility] ([id number]) [address], [facility] [address] [place] [address] RBC COUNT 4.09 X10E12/L Normal 3.80-5.20 [facility] Comment on above: Performed By: #### C MP, CBCA, 1798-8, 34773-6, 5643-2, 3040-3, PINR, 84446-3 #### [facility] ([id number]) [address] [address] [place] [address] WBC (Bld) [#/Vol] 7.1 10*3/uL Normal 4.0-11.0 [facility] Comment on above: Performed By: #### C MP, CBCA, 1798-8, 02842-1, 5643-2, 3040-3, PINR, 23645-7 #### [facility] ([id number]) [address], [address] [place] [address] Glucose Glucometer (BldC) [M ass/Vol]on 12-18-2023 Glucose [Mass/Vol] 159 mg/dL High 65-99 [facility] Glucose [Mass/Vol] 93 mg/dL Normal 65-99 [facility] Glucose [Mass/Vol] 113 mg/dL High 65-99 [facility] Glucose [Mass/Vol] 101 mg/dL High 65-99 [facility] BASIC METABOLIC PANLon 12-16 Anion gap [Moles/Vol] 10 mmol/L Normal 5-15 [facility] Comment on above: Performed By: #### C MP, CBCA, 1798-8, 08665-0, 5643-2, 3040-3, PINR, 67053-9 #### [facility] ([id number]) [address], [address] [place] [address] Calcium [Mass/Vol] 9.0 mg/dL Normal 8.5-10.5 [facility] Comment on above: Performed By: #### C MP, CBCA, 1798-8, 32942-3, 5643-2, 3040-3, PINR, 89105-5 #### [facility] ([id number]) [address], [address] [place] [address] Chloride [Moles/Vol] 106 mmol/L Normal 98-109 [facility] Comment on above: Performed By: #### C MP, CBCA, 1798-8, 14634-9, 5643-2, 3040-3, PINR, 97148-8 #### [facility] ([id number]) [address] [place] [address] CO2 [Moles/Vol] 26 mmol/L Normal 22-32 [facility] Comment on above: Performed By: #### C SAEED, CBCA, 1798-8, 72034-7, 5643-2, 3040-3, PINR, 98782-5 #### [facility] ([id number]) [address], [address] [place] [address] Creatinine [Mass/Vol] 0.61 mg/dL Normal 0.40-1.00 [facility] Comment on above: Result Comment: METH OD TRACEABLE TO IDMS STANDARD Performed By: #### C SAEED, STAR, 8-8, 67308-8, 5643-2, 3040-3, PINR, 02095-2 #### [facility] ([id number]) [address], [address] [place] [address] GFR/1.73 sq M.predicted among non-blacks MDRD (S/P/Bld) [Vol rate/Area] 89 mL/min/{1.73_m2} Normal >59 [facility] Comment on above: Result Comment: Reported eGFR is based on the CKD-EPI 2020 equation that does not use a race coefficient. Performed By: #### C SAEED, CBCA, 8-8, 50744-3, 5643-2, 3040-3, PINR, 50924-0 #### [facility] ([id number]) [address], [address] [place] [address] Glucose [Mass/Vol] 108 mg/dL High 65-99 [facility] Comment on above: Performed By: #### C SAEED, CBCA, 1798-8, 15277-7, 5643-2, 3040-3, PINR, 07147-3 #### [facility] ([id number]) [address], [address] [place] [address] Potassium [Moles/Vol] 3.6 mmol/L Normal 3.5-5.0 [facility] Comment on above: Performed By: #### C MP, CBCA, 1798-8, 55826-1, 5643-2, 3040-3, PINR, 63706-0 #### [facility] ([id number]) [address], [address] [place] [address] Sodium [Moles/Vol] 142 mmol/L Normal 134-146 [facility] Comment on above: Performed By: #### C MP, CBCA, 1798-8, 91800-3, 5643-2, 3040-3, PINR, 72700-3 #### [facility] ([id number]) [address], [address] [place] [address] Urea nitrogen [Mass/Vol] 13 mg/dL Normal 5-27 [facility] Comment on above: Performed By: #### C MP, CBCA, 8-8, 02634-3, 5643-2, 3040-3, PINR, 50962-5 #### [facility] ([id number]) [address], [address] [place] [address] CBC AND AUTO DIFFon 12-17-19 24 ABSOLUTE BASOPHIL 0.0 X10E9/L Normal 0.0-0.2 [facility] Comment on above: Performed By: #### C MP, CBCA, 1798-8, 15904-4, 5643-2, 3040-3, PINR, 64587-7 #### [facility] ([id number]) [address], [address] [place] [address] ABSOLUTE NEUTROPHIL 4.2 X10E9/L Normal 1.5-6.6 [facility] Comment on above: Performed By: #### C MP, CBCA, 1798-8, 98113-8, 5643-2, 3040-3, PINR, 14777-9 #### [facility] ([id number]) [address], [address] [place] [address] Basophils/100 WBC (Bld) 0.5 % Normal [facility] Comment on above: Performed By: #### C MP, CBCA, 1798-8, 92799-0, 5643-2, 3040-3, PINR, 25204-5 #### [facility] ([id number]) [address], [address] [place] [address] Eosinophils (Bld) [#/Vol] 0.2 10*3/uL Normal 0.0-0.4 [facility] Comment on above: Performed By: #### C MP, CBCA, 1798-8, 30552-9, 5643-2, 3040-3, PINR, 17957-8 #### [facility] ([id number]) [address], [address] [place] [address] Eosinophils/100 WBC (Bld) 3.2 % Normal [facility] Comment on above: Performed By: #### C MP, CBCA, 8-8, 66864-6, 5643-2, 3040-3, PINR, 86020-1 #### [facility] ([id number]) [address], [address] [place] [address] Erythrocyte distribution width (RBC) [Ratio] 14.4 % Normal 11.5-15.0 [facility] Comment on above: Performed By: #### C MP, CBCA, 1798-8, 66314-1, 5643-2, 3040-3, PINR, 94953-0 #### [facility] ([id number]) [address], [address] [place] [address] Hematocrit (Bld) [Volume fraction] 34.3 % Low 35-47 [facility] Comment on above: Performed By: #### C MP, CBCA, 1798-8, 15928-3, 5643-2, 3040-3, PINR, 17220-1 #### [facility] ([id number]) [address], [address] [place] [address] Hemoglobin (Bld) [Mass/Vol] 11.6 g/dL Low 11.7-15.5 [facility] Comment on above: Performed By: #### C MP, CBCA, 1798-8, 10087-9, 5643-2, 3040-3, PINR, 16315-8 #### [facility] ([id number]) [address], [address] [place] [address] Lymphocytes (Bld) [#/Vol] 1.6 10*3/uL Normal 1.0-3.5 [facility] Comment on above: Performed By: #### C MP, CBCA, 1798-8, 32803-3, 5643-2, 3040-3, PINR, 69977-3 #### [facility] ([id number]) [address], [address] [place] [address] Lymphocytes/100 WBC (Bld) 24.1 % Normal [facility] Comment on above: Performed By: #### C MP, CBCA, 1798-8, 88759-9, 5643-2, 3040-3, PINR, 16362-9 #### [facility] ([id number]) [address], [address] [place] [address] MCH (RBC) [Entitic mass] 30.6 pg Normal 27-34 [facility] Comment on above: Performed By: #### C MP, CBCA, 1798-8, 42573-8, 5643-2, 3040-3, PINR, 23363-1 #### [facility] ([id number]) [address], [address] [place] [address] MCHC (RBC) [Mass/Vol] 34.0 g/dL Normal 32-36 [facility] Comment on above: Performed By: #### C MP, CBCA, 1798-8, 81881-8, 5643-2, 3040-3, PINR, 95140-7 #### [facility] ([id number]) [address], [address] [place] [address] MCV (RBC) [Entitic vol] 90 fL Normal 80-100 [facility] Comment on above: Performed By: #### C MP, CBCA, 1798-8, 94469-9, 5643-2, 3040-3, PINR, 06459-2 #### [facility] ([id number]) [address], [facility] [address] [place] [address] Monocytes (Bld) [#/Vol] 0.6 10*3/uL Normal 0-0.9 [facility] Comment on above: Performed By: #### C MP, CBCA, 1798-8, 45308-0, 5643-2, 3040-3, PINR, 64142-8 #### [facility] ([id number]) [address], [address] [address] Monocytes/100 WBC (Bld) 8.4 % Normal [facility] Comment on above: Performed By: #### C MP, CBCA, 1798-8, 46044-1, 5643-2, 3040-3, PINR, 48784-6 #### [facility] ([id number]) [address] [address] Neutrophils/100 WBC (Bld) 63.8 % Normal [facility] Comment on above: Performed By: #### C MP, CBCA, 1798-8, 15171-9, 5643-2, 3040-3, PINR, 39240-3 #### [facility] ([id number]) [address], [facility] [address] [place] [address] Platelet mean volume (Bld) [Entitic vol] 7.4 fL Normal 7-12 [facility] Comment on above: Performed By: #### C MP, CBCA, 1798-8, 14501-3, 5643-2, 3040-3, PINR, 84944-5 #### [facility] ([id number]) [address], [address] [place] [address] Platelets (Bld) [#/Vol] 252 10*3/uL Normal 150-450 [facility] Comment on above: Performed By: #### C MP, CBCA, 1798-8, 58944-2, 5643-2, 3040-3, PINR, 67136-1 #### [facility] ([id number]) [address], [facility] [address] [place] [address] RBC COUNT 3.81 X10E12/L Normal 3.80-5.20 [facility] Comment on above: Performed By: #### C MP, CBCA, 1798-8, 59781-2, 5643-2, 3040-3, PINR, 15952-2 #### [facility] ([id number]) [address], [address] [place] [address] WBC (Bld) [#/Vol] 6.6 10*3/uL Normal 4.0-11.0 [facility] Comment on above: Performed By: #### C MP, CBCA, 1798-8, 80898-8, 5643-2, 3040-3, PINR, 18884-0 #### [facility] ([id number]) [address], [address] [place] [address] Glucose Glucometer (BldC) [M ass/Vol]on 12-17-2023 Glucose [Mass/Vol] 107 mg/dL High 65-99 [facility] Glucose [Mass/Vol] 118 mg/dL High 65-99 [facility] Glucose [Mass/Vol] 113 mg/dL High 65-99 [facility] Glucose [Mass/Vol] 100 mg/dL High 65-99 [facility] BASIC METABOLIC PANLon 12-15 Anion gap [Moles/Vol] 8 mmol/L Normal 5-15 [facility] Comment on above: Performed By: #### C MP, CBCA, 1798-8, 54433-1, 5643-2, 3040-3, PINR, 26659-7 #### [facility] ([id number]) [address], [address] [place] [address] Calcium [Mass/Vol] 8.9 mg/dL Normal 8.5-10.5 [facility] Comment on above: Performed By: #### C MP, CBCA, 1798-8, 71489-5, 5643-2, 3040-3, PINR, 78888-3 #### [facility] ([id number]) [address], [address] [place] [address] Chloride [Moles/Vol] 107 mmol/L Normal 98-109 [facility] Comment on above: Performed By: #### C MP, CBCA, 1798-8, 84786-3, 5643-2, 3040-3, PINR, 77548-1 #### [facility] ([id number]) [address], [address] [place] [address] CO2 [Moles/Vol] 24 mmol/L Normal 22-32 [facility] Comment on above: Performed By: #### C MP, CBCA, 1798-8, 10770-6, 5643-2, 3040-3, PINR, 71698-9 #### [facility] ([id number]) [address], [address] [place] [address] Creatinine [Mass/Vol] 0.51 mg/dL Normal 0.40-1.00 [facility] Comment on above: Result Comment: METH OD TRACEABLE TO IDMS STANDARD Performed By: #### C MP, CBCA, 1798-8, 98020-5, 5643-2, 3040-3, PINR, 00084-0 #### [facility] ([id number]) [address] [address] [place] [address] eGFR (CKD-EPI) NON-RACE DEPENDENT >90 Normal >59 [facility] Comment on above: Result Comment: Reported eGFR is based on the CKD-EPI 2020 equation that does not use a race coefficient. Performed By: #### C MP, CBCA, 1798-8, 46409-5, 5643-2, 3040-3, PINR, 55163-2 #### [facility] ([id number]) [address] [address] Glucose [Mass/Vol] 163 mg/dL High 65-99 [facility] Comment on above: Performed By: #### C MP, CBCA, 1798-8, 28622-3, 5643-2, 3040-3, PINR, 21052-8 #### [facility] ([id number]) [address] [address] Potassium [Moles/Vol] 3.7 mmol/L Normal 3.5-5.0 [facility] Comment on above: Performed By: #### C MP, CBCA, 1798-8, 54721-4, 5643-2, 3040-3, PINR, 36207-0 #### [facility] ([id number]) [address] [address] Sodium [Moles/Vol] 139 mmol/L Normal 134-146 [facility] Comment on above: Performed By: #### C MP, CBCA, 1798-8, 21821-1, 5643-2, 3040-3, PINR, 00760-8 #### [facility] ([id number]) [address] [address] Urea nitrogen [Mass/Vol] 12 mg/dL Normal 5-27 [facility] Comment on above: Performed By: #### C MP, CBCA, 1798-8, 00103-7, 5643-2, 3040-3, PINR, 69901-0 #### [facility] ([id number]) [address], [address] [place] [address] CBC AND AUTO DIFFon 12-16-19 24 ABSOLUTE BASOPHIL 0.0 X10E9/L Normal 0.0-0.2 [facility] Comment on above: Performed By: #### C MP, CBCA, 8-8, 51897-0, 5643-2, 3040-3, PINR, 19271-5 #### [facility] ([id number]) [address], [address] [place] [address] ABSOLUTE NEUTROPHIL 4.2 X10E9/L Normal 1.5-6.6 [facility] Comment on above: Performed By: #### C MP, CBCA, 1797-8, 36694-6, 5643-2, 3040-3, PINR, 53786-1 #### [facility] ([id number]) [address], [address] [place] [address] Basophils/100 WBC (Bld) 0.4 % Normal [facility] Comment on above: Performed By: #### C MP, CBCA, 1797-8, 88442-6, 5643-2, 3040-3, PINR, 06994-5 #### [facility] ([id number]) [address], [address] [place] [address] Eosinophils (Bld) [#/Vol] 0.2 10*3/uL Normal 0.0-0.4 [facility] Comment on above: Performed By: #### C MP, CBCA, 1798-8, 86534-5, 5643-2, 3040-3, PINR, 02029-8 #### [facility] ([id number]) [address], [address] [place] [address] Eosinophils/100 WBC (Bld) 2.8 % Normal [facility] Comment on above: Performed By: #### C MP, CBCA, 1798-8, 13621-6, 5643-2, 3040-3, PINR, 41744-0 #### [facility] ([id number]) [address] [address] [place] [address] Erythrocyte distribution width (RBC) [Ratio] 14.3 % Normal 11.5-15.0 [facility] Comment on above: Performed By: #### C MP, CBCA, 1798-8, 37809-5, 5643-2, 3040-3, PINR, 90681-6 #### [facility] ([id number]) [address] [address] Hematocrit (Bld) [Volume fraction] 33.6 % Low 35-47 [facility] Comment on above: Performed By: #### C MP, CBCA, 8-8, 57761-7, 5643-2, 3040-3, PINR, 20198-5 #### [facility] ([id number]) [address] [address] Hemoglobin (Bld) [Mass/Vol] 11.8 g/dL Normal 11.7-15.5 [facility] Comment on above: Performed By: #### C MP, CBCA, 1798-8, 07454-0, 5643-2, 3040-3, PINR, 18041-3 #### [facility] ([id number]) [address] [address] Lymphocytes (Bld) [#/Vol] 1.2 10*3/uL Normal 1.0-3.5 [facility] Comment on above: Performed By: #### C MP, CBCA, 1798-8, 12475-6, 5643-2, 3040-3, PINR, 78632-7 #### [facility] ([id number]) [address] [address] Lymphocytes/100 WBC (Bld) 19.6 % Normal [facility] Comment on above: Performed By: #### C MP, CBCA, 1798-8, 28508-9, 5643-2, 3040-3, PINR, 06628-0 #### [facility] ([id number]) [address], [address] [place] [address] MCH (RBC) [Entitic mass] 31.7 pg Normal 27-34 [facility] Comment on above: Performed By: #### C MP, CBCA, 1798-8, 09582-3, 5643-2, 3040-3, PINR, 53736-5 #### [facility] ([id number]) [address], [address] [place] [address] MCHC (RBC) [Mass/Vol] 35.3 g/dL Normal 32-36 [facility] Comment on above: Performed By: #### C MP, CBCA, 8-8, 02139-2, 5643-2, 3040-3, PINR, 41952-9 #### [facility] ([id number]) [address], [address] [place] [address] MCV (RBC) [Entitic vol] 90 fL Normal 80-100 [facility] Comment on above: Performed By: #### C MP, CBCA, 1798-8, 48903-2, 5643-2, 3040-3, PINR, 75618-1 #### [facility] ([id number]) [address], [address] [place] [address] Monocytes (Bld) [#/Vol] 0.4 10*3/uL Normal 0-0.9 [facility] Comment on above: Performed By: #### C MP, CBCA, 1798-8, 26693-9, 5643-2, 3040-3, PINR, 70000-0 #### [facility] ([id number]) [address], [address] [place] [address] Monocytes/100 WBC (Bld) 6.7 % Normal [facility] Comment on above: Performed By: #### C MP, CBCA, 1798-8, 44573-9, 5643-2, 3040-3, PINR, 34610-4 #### [facility] ([id number]) [address] [address] Neutrophils/100 WBC (Bld) 70.5 % Normal [facility] Comment on above: Performed By: #### C MP, CBCA, 1798-8, 46195-7, 5643-2, 3040-3, PINR, 05626-2 #### [facility] ([id number]) [address] [address] Platelet mean volume (Bld) [Entitic vol] 7.2 fL Normal 7-12 [facility] Comment on above: Performed By: #### C MP, CBCA, 1798-8, 94629-6, 5643-2, 3040-3, PINR, 07705-4 #### [facility] ([id number]) [address] [address] Platelets (Bld) [#/Vol] 215 10*3/uL Normal 150-450 [facility] Comment on above: Performed By: #### C MP, CBCA, 1798-8, 42286-9, 5643-2, 3040-3, PINR, 96493-7 #### [facility] ([id number]) [address] [address] RBC COUNT 3.73 X10E12/L Low 3.80-5.20 [facility] Comment on above: Performed By: #### C MP, CBCA, 1798-8, 17235-7, 5643-2, 3040-3, PINR, 04269-2 #### [facility] ([id number]) [address], [address] [place] [address] WBC (Bld) [#/Vol] 6.0 10*3/uL Normal 4.0-11.0 [facility] Comment on above: Performed By: #### C MP, CBCA, 1798-8, 72373-8, 5643-2, 3040-3, PINR, 21118-3 #### [facility] ([id number]) [address], [address] [place] [address] Glucose Glucometer (BldC) [M ass/Vol]on 12-16-2023 Glucose [Mass/Vol] 101 mg/dL High 65-99 [facility] Glucose [Mass/Vol] 105 mg/dL High 65-99 [facility] Glucose [Mass/Vol] 180 mg/dL High 65-99 [facility] Glucose [Mass/Vol] 174 mg/dL High 65-99 [facility] BASIC METABOLIC PANLon 12-14 Anion gap [Moles/Vol] 11 mmol/L Normal 5-15 [facility] Comment on above: Performed By: #### C MP, CBCA, 1798-8, 28777-7, 5643-2, 3040-3, PINR, 73113-0 #### [facility] ([id number]) [address], [address] [place] [address] Calcium [Mass/Vol] 9.4 mg/dL Normal 8.5-10.5 [facility] Comment on above: Performed By: #### C MP, CBCA, 1798-8, 64283-6, 5643-2, 3040-3, PINR, 27253-9 #### [facility] ([id number]) [address], [address] [place] [address] Chloride [Moles/Vol] 105 mmol/L Normal 98-109 [facility] Comment on above: Performed By: #### C MP, CBCA, 1798-8, 69897-2, 5643-2, 3040-3, PINR, 86602-8 #### [facility] ([id number]) [address], [address] [place] [address] CO2 [Moles/Vol] 25 mmol/L Normal 22-32 [facility] Comment on above: Performed By: #### C MP, CBCA, 1798-8, 66182-4, 5643-2, 3040-3, PINR, 54924-0 #### [facility] ([id number]) [address], [address] [place] [address] Creatinine [Mass/Vol] 0.69 mg/dL Normal 0.40-1.00 [facility] Comment on above: Result Comment: METH OD TRACEABLE TO IDMS STANDARD Performed By: #### C MP, CBCA, 1798-8, 61195-5, 5643-2, 3040-3, PINR, 92851-6 #### [facility] ([id number]) [address], [address] [place] [address] GFR/1.73 sq M.predicted among non-blacks MDRD (S/P/Bld) [Vol rate/Area] 86 mL/min/{1.73_m2} Normal >59 [facility] Comment on above: Result Comment: Reported eGFR is based on the CKD-EPI 2020 equation that does not use a race coefficient. Performed By: #### C MP, CBCA, 1798-8, 67890-7, 5643-2, 3040-3, PINR, 65115-9 #### [facility] ([id number]) [address], [address] [place] [address] Glucose [Mass/Vol] 147 mg/dL High 65-99 [facility] Comment on above: Performed By: #### C MP, CBCA, 1798-8, 67074-6, 5643-2, 3040-3, PINR, 88126-8 #### [facility] ([id number]) [address], [address] [place] [address] Potassium [Moles/Vol] 3.8 mmol/L Normal 3.5-5.0 [facility] Comment on above: Performed By: #### C MP, CBCA, 1798-8, 77034-3, 5643-2, 3040-3, PINR, 92032-6 #### [facility] ([id number]) [address], [address] [place] [address] Sodium [Moles/Vol] 141 mmol/L Normal 134-146 [facility] Comment on above: Performed By: #### C MP, CBCA, 1798-8, 02979-9, 5643-2, 3040-3, PINR, 86945-2 #### [facility] ([id number]) [address], [facility] [address] [place] [address] Urea nitrogen [Mass/Vol] 14 mg/dL Normal 5-27 [facility] Comment on above: Performed By: #### C MP, CBCA, 1798-8, 11620-6, 5643-2, 3040-3, PINR, 65726-2 #### [facility] ([id number]) [address], [address] [place] [address] CBC AND AUTO DIFFon 12-14- 24 ABSOLUTE BASOPHIL 0.0 X10E9/L Normal 0.0-0.2 [facility] Comment on above: Performed By: #### C MP, CBCA, 1798-8, 86260-0, 5643-2, 3040-3, PINR, 34797-8 #### [facility] ([id number]) [address] [address] [place] [address] ABSOLUTE NEUTROPHIL 6.2 X10E9/L Normal 1.5-6.6 [facility] Comment on above: Performed By: #### C MP, CBCA, 1798-8, 34468-5, 5643-2, 3040-3, PINR, 04802-5 #### [facility] ([id number]) [address] [address] [place] [address] Basophils/100 WBC (Bld) 0.3 % Normal [facility] Comment on above: Performed By: #### C MP, CBCA, 1798-8, 51379-0, 5643-2, 3040-3, PINR, 24214-0 #### [facility] ([id number]) [address], [address] [address] Eosinophils (Bld) [#/Vol] 0.0 10*3/uL Normal 0.0-0.4 [facility] Comment on above: Performed By: #### C MP, CBCA, 8-8, 62233-7, 5643-2, 3040-3, PINR, 57191-9 #### [facility] ([id number]) [address] [address] Eosinophils/100 WBC (Bld) 0.6 % Normal [facility] Comment on above: Performed By: #### C MP, CBCA, 8-8, 96737-0, 5643-2, 3040-3, PINR, 97668-6 #### [facility] ([id number]) [address] [address] Erythrocyte distribution width (RBC) [Ratio] 14.0 % Normal 11.5-15.0 [facility] Comment on above: Performed By: #### C MP, CBCA, 8-8, 26604-9, 5643-2, 3040-3, PINR, 12915-0 #### [facility] ([id number]) [address] [address] Hematocrit (Bld) [Volume fraction] 37.1 % Normal 35-47 [facility] Comment on above: Performed By: #### C MP, CBCA, 1798-8, 19091-6, 5643-2, 3040-3, PINR, 12946-2 #### [facility] ([id number]) [address], [facility] [address] [place] [address] Hemoglobin (Bld) [Mass/Vol] 12.4 g/dL Normal 11.7-15.5 [facility] Comment on above: Performed By: #### C MP, CBCA, 8-8, 29080-4, 5643-2, 3040-3, PINR, 46340-3 #### [facility] ([id number]) [address] [address] Lymphocytes (Bld) [#/Vol] 1.0 10*3/uL Normal 1.0-3.5 [facility] Comment on above: Performed By: #### C MP, CBCA, 1797-8, 12446-4, 5643-2, 3040-3, PINR, [id number] #### [facility] ([id number]) [address] [address] Lymphocytes/100 WBC (Bld) 12.8 % Normal [facility] Comment on above: Performed By: #### C MP, CBCA, 8-8, 58069-8, 5643-2, 3040-3, PINR, 77341-8 #### [facility] ([id number]) [address] [address] [place] [address] MCH (RBC) [Entitic mass] 30.3 pg Normal 27-34 [facility] Comment on above: Performed By: #### C MP, CBCA, 1798-8, 87362-1, 5643-2, 3040-3, PINR, 69029-1 #### [facility] ([id number]) [address] [address] [place] [address] MCHC (RBC) [Mass/Vol] 33.4 g/dL Normal 32-36 [facility] Comment on above: Performed By: #### C MP, CBCA, 1798-8, 23305-0, 5643-2, 3040-3, PINR, 37749-0 #### [facility] ([id number]) [address] [place] [address] MCV (RBC) [Entitic vol] 91 fL Normal 80-100 [facility] Comment on above: Performed By: #### C MP, CBCA, 1798-8, 47302-1, 5643-2, 3040-3, PINR, 44023-6 #### [facility] ([id number]) [address] [address] [place] [address] Monocytes (Bld) [#/Vol] 0.4 10*3/uL Normal 0-0.9 [facility] Comment on above: Performed By: #### C MP, CBCA, 1798-8, 14695-5, 5643-2, 3040-3, PINR, 88714-9 #### [facility] ([id number]) [address] [place] [address] Monocytes/100 WBC (Bld) 4.7 % Normal [facility] Comment on above: Performed By: #### C MP, CBCA, 1798-8, 32020-1, 5643-2, 3040-3, PINR, 58169-1 #### [facility] ([id number]) [address], [facility] [address] [place] [address] Neutrophils/100 WBC (Bld) 81.6 % Normal [facility] Comment on above: Performed By: #### C MP, CBCA, 1798-8, 18142-7, 5643-2, 3040-3, PINR, 10785-2 #### [facility] ([id number]) [address], [address] [place] [address] Platelet mean volume (Bld) [Entitic vol] 7.8 fL Normal 7-12 [facility] Comment on above: Performed By: #### C MP, CBCA, 1798-8, 53996-3, 5643-2, 3040-3, PINR, 05519-8 #### [facility] ([id number]) [address], [address] [place] [address] Platelets (Bld) [#/Vol] 224 10*3/uL Normal 150-450 [facility] Comment on above: Performed By: #### C MP, CBCA, 1798-8, 10660-4, 5643-2, 3040-3, PINR, 81791-0 #### [facility] ([id number]) [address], [address] [place] [address] RBC COUNT 4.10 X10E12/L Normal 3.80-5.20 [facility] Comment on above: Performed By: #### C MP, CBCA, 1798-8, 55034-4, 5643-2, 3040-3, PINR, 30802-6 #### [facility] ([id number]) [address], [address] [place] [address] WBC (Bld) [#/Vol] 7.5 10*3/uL Normal 4.0-11.0 [facility] Comment on above: Performed By: #### C MP, CBCA, 1798-8, 64648-7, 5643-2, 3040-3, PINR, 70511-6 #### [facility] ([id number]) [address], [address] [place] [address] Glucose Glucometer (BldC) [M ass/Vol]on 12-15-2023 Glucose [Mass/Vol] 156 mg/dL High 65-99 [facility] Glucose [Mass/Vol] 107 mg/dL High 65-99 [facility] Glucose [Mass/Vol] 117 mg/dL High 65-99 [facility] Glucose [Mass/Vol] 118 mg/dL High 65-99 [facility] AMYLASEon 12-14-2023 Amylase [Catalytic activity/Vol] 38 U/L Normal 28-100 [facility] Comment on above: Performed By: #### C MP, CBCA, 1798-8, 36509-5, 5643-2, 3040-3, PINR, 79844-2 #### [facility] ([id number]) [address], [address] [place] [address] CBC AND AUTO DIFFon 12-14-19 24 ABSOLUTE BASOPHIL 0.0 X10E9/L Normal 0.0-0.2 [facility] Comment on above: Performed By: #### C MP, CBCA, 8-8, 40245-9, 5643-2, 3040-3, PINR, 80233-7 #### [facility] ([id number]) [address], [address] [place] [address] ABSOLUTE NEUTROPHIL 4.1 X10E9/L Normal 1.5-6.6 [facility] Comment on above: Performed By: #### C MP, CBCA, 8-8, 14768-9, 5643-2, 3040-3, PINR, 35438-6 #### [facility] ([id number]) [address], [address] [place] [address] Basophils/100 WBC (Bld) 0.5 % Normal [facility] Comment on above: Performed By: #### C MP, CBCA, 8-8, 13346-6, 5643-2, 3040-3, PINR, 03705-7 #### [facility] ([id number]) [address], [address] [place] [address] Eosinophils (Bld) [#/Vol] 0.3 10*3/uL Normal 0.0-0.4 [facility] Comment on above: Performed By: #### C MP, CBCA, 1798-8, 52707-0, 5643-2, 3040-3, PINR, 21236-8 #### [facility] ([id number]) [address] [address] Eosinophils/100 WBC (Bld) 4.4 % Normal [facility] Comment on above: Performed By: #### C MP, CBCA, 1798-8, 02315-5, 5643-2, 3040-3, PINR, 08444-2 #### [facility] ([id number]) [address] [address] Erythrocyte distribution width (RBC) [Ratio] 14.1 % Normal 11.5-15.0 [facility] Comment on above: Performed By: #### C MP, CBCA, 1798-8, 25969-7, 5643-2, 3040-3, PINR, 68012-5 #### [facility] ([id number]) [address] [address] Hematocrit (Bld) [Volume fraction] 31.6 % Low 35-47 [facility] Comment on above: Performed By: #### C MP, CBCA, 1798-8, 54044-3, 5643-2, 3040-3, PINR, 99567-6 #### [facility] ([id number]) [address] [address] Hemoglobin (Bld) [Mass/Vol] 11.3 g/dL Low 11.7-15.5 [facility] Comment on above: Performed By: #### C MP, CBCA, 1798-8, 11774-2, 5643-2, 3040-3, PINR, 50083-9 #### [facility] ([id number]) [address] [address] Lymphocytes (Bld) [#/Vol] 2.3 10*3/uL Normal 1.0-3.5 [facility] Comment on above: Performed By: #### C MP, CBCA, 1798-8, 11671-3, 5643-2, 3040-3, PINR, 39442-7 #### [facility] ([id number]) [address] [address] [place] [address] Lymphocytes/100 WBC (Bld) 31.8 % Normal [facility] Comment on above: Performed By: #### C MP, CBCA, 1798-8, 26102-7, 5643-2, 3040-3, PINR, 95097-6 #### [facility] ([id number]) [address] [address] MCH (RBC) [Entitic mass] 31.6 pg Normal 27-34 [facility] Comment on above: Performed By: #### C MP, CBCA, 8-8, 80835-9, 5643-2, 3040-3, PINR, 01380-8 #### [facility] ([id number]) [address] [address] MCHC (RBC) [Mass/Vol] 35.7 g/dL Normal 32-36 [facility] Comment on above: Performed By: #### C MP, CBCA, 8-8, 32778-4, 5643-2, 3040-3, PINR, 37550-4 #### [facility] ([id number]) [address] [address] MCV (RBC) [Entitic vol] 89 fL Normal 80-100 [facility] Comment on above: Performed By: #### C MP, CBCA, 1798-8, 42899-1, 5643-2, 3040-3, PINR, 95557-2 #### [facility] ([id number]) [address] [address] [place] [address] Monocytes (Bld) [#/Vol] 0.6 10*3/uL Normal 0-0.9 [facility] Comment on above: Performed By: #### C MP, CBCA, 1798-8, 00951-0, 5643-2, 3040-3, PINR, 15364-4 #### [facility] ([id number]) [address], [address] [place] [address] Monocytes/100 WBC (Bld) 7.7 % Normal [facility] Comment on above: Performed By: #### C MP, CBCA, 1798-8, 66342-2, 5643-2, 3040-3, PINR, 84572-1 #### [facility] ([id number]) [address], [facility] [address] [place] [address] Neutrophils/100 WBC (Bld) 55.6 % Normal [facility] Comment on above: Performed By: #### C MP, CBCA, 8-8, 01060-1, 5643-2, 3040-3, PINR, 08997-1 #### [facility] ([id number]) [address], [facility] [address] [place] [address] Platelet mean volume (Bld) [Entitic vol] 7.2 fL Normal 7-12 [facility] Comment on above: Performed By: #### C MP, CBCA, 1798-8, 89615-7, 5643-2, 3040-3, PINR, 88492-5 #### [facility] ([id number]) [address], [address] [place] [address] Platelets (Bld) [#/Vol] 223 10*3/uL Normal 150-450 [facility] Comment on above: Performed By: #### C MP, CBCA, 1798-8, 45312-3, 5643-2, 3040-3, PINR, 36471-8 #### [facility] ([id number]) [address], [address] [place] [address] RBC COUNT 3.57 X10E12/L Low 3.80-5.20 [facility] Comment on above: Performed By: #### C MP, CBCA, 1798-8, 86415-3, 5643-2, 3040-3, PINR, 54180-7 #### [facility] ([id number]) [address], [address] [place] [address] WBC (Bld) [#/Vol] 7.3 10*3/uL Normal 4.0-11.0 [facility] Comment on above: Performed By: #### C MP, CBCA, 1798-8, 91477-4, 5643-2, 3040-3, PINR, 59499-0 #### [facility] ([id number]) [address], [address] [place] [address] COMPREHENSIVE METABOLIC PANE Xiang 12-14-2023 Albumin [Mass/Vol] 3.5 g/dL Normal 3.2-5.3 [facility] Comment on above: Performed By: #### C MP, CBCA, 1798-8, 49392-2, 5643-2, 3040-3, PINR, 72017-9 #### [facility] ([id number]) [address], [address] [place] [address] ALP [Catalytic activity/Vol] 41 U/L Normal 39-130 [facility] Comment on above: Performed By: #### C MP, CBCA, 1798-8, 74784-0, 5643-2, 3040-3, PINR, 47508-3 #### [facility] ([id number]) [address], [address] [place] [address] ALT [Catalytic activity/Vol] 10 U/L Normal 0-31 [facility] Comment on above: Performed By: #### C MP, CBCA, 1798-8, 68399-8, 5643-2, 3040-3, PINR, 82225-9 #### [facility] ([id number]) [address], [address] [place] [address] Anion gap [Moles/Vol] 6 mmol/L Normal 5-15 [facility] Comment on above: Performed By: #### C MP, CBCA, 1798-8, 67492-6, 5643-2, 3040-3, PINR, 15429-7 #### [facility] ([id number]) [address], [address] [place] [address] AST [Catalytic activity/Vol] 12 U/L Normal 0-41 [facility] Comment on above: Performed By: #### C MP, CBCA, 1798-8, 27784-6, 5643-2, 3040-3, PINR, 68738-0 #### [facility] ([id number]) [address], [address] [place] [address] Bilirubin [Mass/Vol] 0.4 mg/dL Normal 0.3-1.2 [facility] Comment on above: Performed By: #### C MP, CBCA, 1798-8, 13664-0, 5643-2, 3040-3, PINR, 73576-4 #### [facility] ([id number]) [address], [address] [place] [address] Calcium [Mass/Vol] 9.4 mg/dL Normal 8.5-10.5 [facility] Comment on above: Performed By: #### C MP, CBCA, 1798-8, 99406-0, 5643-2, 3040-3, PINR, 34060-9 #### [facility] ([id number]) [address], [address] [place] [address] Chloride [Moles/Vol] 107 mmol/L Normal 98-109 [facility] Comment on above: Performed By: #### C MP, CBCA, 1798-8, 74874-5, 5643-2, 3040-3, PINR, 92595-0 #### [facility] ([id number]) [address], [address] [place] [address] CO2 [Moles/Vol] 28 mmol/L Normal 22-32 [facility] Comment on above: Performed By: #### C MP, CBCA, 1798-8, 35915-9, 5643-2, 3040-3, PINR, 76479-5 #### [facility] ([id number]) [address], [address] [place] [address] Creatinine [Mass/Vol] 0.63 mg/dL Normal 0.40-1.00 [facility] Comment on above: Result Comment: METH OD TRACEABLE TO IDMS STANDARD Performed By: #### C MP, CBCA, 1798-8, 93998-5, 5643-2, 3040-3, PINR, 90481-1 #### [facility] ([id number]) [address], [address] [place] [address] GFR/1.73 sq M.predicted among non-blacks MDRD (S/P/Bld) [Vol rate/Area] 88 mL/min/{1.73_m2} Normal >59 [facility] Comment on above: Result Comment: Reported eGFR is based on the CKD-EPI 2020 equation that does not use a race coefficient. Performed By: #### C MP, CBCA, 1798-8, 65167-3, 5643-2, 3040-3, PINR, 38890-5 #### [facility] ([id number]) [address], [address] [place] [address] Glucose [Mass/Vol] 103 mg/dL High 65-99 [facility] Comment on above: Performed By: #### C MP, CBCA, 1798-8, 91110-3, 5643-2, 3040-3, PINR, 38413-2 #### [facility] ([id number]) [address], [address] [address] Potassium [Moles/Vol] 4.0 mmol/L Normal 3.5-5.0 [facility] Comment on above: Performed By: #### C MP, CBCA, 1798-8, 18808-8, 5643-2, 3040-3, PINR, 91392-5 #### [facility] ([id number]) [address] [address] Protein [Mass/Vol] 6.3 g/dL Normal 6.0-8.0 [facility] Comment on above: Performed By: #### C MP, CBCA, 1798-8, 29563-7, 5643-2, 3040-3, PINR, 93350-6 #### [facility] ([id number]) [address] [address] Sodium [Moles/Vol] 141 mmol/L Normal 134-146 [facility] Comment on above: Performed By: #### C MP, CBCA, 1798-8, 37952-4, 5643-2, 3040-3, PINR, 26272-1 #### [facility] ([id number]) [address] [address] Urea nitrogen [Mass/Vol] 18 mg/dL Normal 5-27 [facility] Comment on above: Performed By: #### C MP, CBCA, 1798-8, 93500-5, 5643-2, 3040-3, PINR, 64284-6 #### [facility] ([id number]) [address] [address] [address] BRAIN WO CONTon 4 CT BRAIN WO CONT CT BRAIN WO CONT History: SAH Headache Exam/Technique: CT images of the brain were obtained without IV contrast. CT does automated exposure control was utilized. All CT scans at this facility use dose modulation, iterative reconstruction, and/or weight based dosing when appropriate to reduce radiation dose to as low as reasonably achievable. Comparison: 1:48 PM Findings: There are grossly stable multiple areas of subarachnoid hemorrhage at the right cerebral convexity and posterior aspect of the frontal lobe and along the quadrigeminal cistern. Stable 8mm hyperdense observation at the left insular cortex possibly parenchymal contusion versus subarachnoid hemorrhage. The prominent bilateral CSF collection along cerebral convexities remains stable. There is moderate degree of diffuse cerebral atrophy. There is no midline shift or transtentorial herniation and no gross acute hemorrhagic changes. IMPRESSION: Stable subarachnoid hemorrhagic changes as described above and left insular hyperdensity. Otherwise, there are no gross acute changes. Finalized by Efraín Gamble MD on 12/14/2023 10:41 PM Normal [facility] CT BRAIN WO CONT CT BRAIN WO CONT CT BRAIN WO CONT: 12/14/2023 PROVIDED HISTORY: * 83 years old Female * Subarachnoid hemorrhage (SAH) COMPARISON: Outside hospital CT head 12/13/2023 TECHNIQUE: 1. CT of the Head without intravenous contrast. Sagittal and coronal reformats created and reviewed in brain, bone, and soft tissue windows. 2. All CT scans at this facility use dose modulation, iterative reconstruction, and/or weight based dosing when appropriate to reduce radiation dose to as low as reasonably achievable. ?? FINDINGS: Small volume subarachnoid hemorrhage in the right central sulcus, similar to prior. Additional small volume subarachnoid hemorrhage within the quadrigeminal and suprasellar cisterns, similar to prior. Hyperattenuating focus in the left insular cortex measuring up to 7 mm, similar to prior. No definite new acute intracranial hemorrhage. No territorial loss of coronado-white differentiation. Bifrontal extra-axial primarily hypoattenuating collections measuring up to 8 mm in thickness on the right and 6 mm in thickness on the left, similar in extent though increased in conspicuity when compared to most recent prior, possibly secondary to differences in technique. No significant shift of midline structures. Calcified right parietal extra-axial mass measuring up to 8 mm, likely meningioma. Brain parenchymal volume loss. Stable caliber and morphology of the ventricular system. No displaced or depressed calvarial fracture. Intracranial atherosclerosis. Absent te-moak lenses. Visualized mastoid air cells are well aerated. Visualized paranasal sinuses are well aerated. IMPRESSION: 1. Small volume subarachnoid hemorrhage, overall similar in configuration to prior. 2. Left insular cortex hyperattenuating focus may represent parenchymal versus subarachnoid hemorrhage, with underlying neoplastic process not excluded. Contrast enhanced MRI may be of diagnostic value. 3. Bilateral frontal cerebral convexity low attenuation extra-axial collections, similar to prior. 4. No territorial loss of coronado-white differentiation. Please note, MRI is more sensitive for the detection of acute ischemia Finalized by Devendra Cabrera MD on 12/14/2023 3:08 PM Normal [facility] DRUG SCREEN, URINEon 024 AMPHETAMINE/METHAMP Negative Normal NEG [facility] Comment on above: Result Comment: AMPH /METH screening cut off = 1000 ng/mL Performed By: #### C MP, CBCA, 1798-8, 58023-3, 5643-2, 3040-3, PINR, 98358-6 #### [facility] ([id number]) [address], [address] [place] [address] BARBITURATES Negative Normal NEG [facility] Comment on above: Result Comment: Marisa iturates screening cut off value = 200 ng/mL Performed By: #### C MP, CBCA, 8-8, 40835-1, 5643-2, 3040-3, PINR, 57368-3 #### [facility] ([id number]) [address], [address] [place] [address] BENZODIAZEPINES Negative Normal NEG [facility] Comment on above: Result Comment: Pedro odiazepines screening cut off value = 200 ng/mL Performed By: #### C MP, CBCA, 8-8, 37718-8, 5643-2, 3040-3, PINR, 60008-5 #### [facility] ([id number]) [address], [address] [place] [address] CANNABINOIDS Negative Normal NEG [facility] Comment on above: Result Comment: Rahel abinoids/THC screening cut off value = 50 ng/mL Performed By: #### C MP, CBCA, 1798-8, 41299-5, 5643-2, 3040-3, PINR, 49010-9 #### [facility] ([id number]) [address], [address] [place] [address] COCAINE METABOLITE Negative Normal NEG [facility] Comment on above: Result Comment: Coca ine screening cut off value = 300 ng/mL Performed By: #### C MP, CBCA, 1798-8, 37848-5, 5643-2, 3040-3, PINR, 49745-8 #### [facility] ([id number]) [address], [address] [place] [address] ECSTASY Negative Normal NEG [facility] Comment on above: Result Comment: Ecst asy screening cut off value = 500 ng/mL This report is intended for use in clinical monitoring or management of patients. Performed By: #### C MP, CBCA, 1798-8, 57175-3, 5643-2, 3040-3, PINR, 99720-7 #### [facility] ([id number]) [address], [address] [place] [address] METHADONE Negative Normal NEG [facility] Comment on above: Result Comment: Meth adone screening cut off value = 300 ng/mL. Performed By: #### C MP, CBCA, 1798-8, 08424-2, 5643-2, 3040-3, PINR, 35356-2 #### [facility] ([id number]) [address], [address] [place] [address] OPIATES Negative Normal NEG [facility] Comment on above: Result Comment: Opia marina screening cut off value = 300 ng/mL NOTE: This test is used for the detection of codeine, hydrocodone (>1000 ng/mL), morphine and hydromorphone (>900 ng/mL) in urine. Performed By: #### C MP, CBCA, 1798-8, 07702-4, 5643-2, 3040-3, PINR, 15464-7 #### [facility] ([id number]) [address] [address] OXYCODONE Negative Normal NEG [facility] Comment on above: Result Comment: Oxyc odone screening cut off value = 300 ng/mL NOTE: This test is used for the detection of oxycodone and oxymorphone in urine. Performed By: #### C MP, CBCA, 1798-8, 14359-4, 5643-2, 3040-3, PINR, 27643-4 #### [facility] ([id number]) [address] [address] PHENCYCLIDINE Negative Normal NEG [facility] Comment on above: Result Comment: Phen cyclidine screening cut off value = 25 ng/mL Performed By: #### C MP, CBCA, 1798-8, 15569-0, 5643-2, 3040-3, PINR, 24586-0 #### [facility] ([id number]) [address] [address] ETHANOLon 12-14-2023 Ethanol [Mass/Vol] mg/dL Normal 0.00-0.08 [facility] Comment on above: Result Comment: This report is intended for use in clinical monitoring or management of patients. Performed By: #### C MP, CBCA, 1798-8, 05384-7, 5643-2, 3040-3, PINR, 01903-0 #### [facility] ([id number]) [address] [address] Fibrinogen Coagulation.deriv ed (PPP) [Mass/Vol]on 12-14-2023 FIBRINOGEN 347 mg/dL Normal 190-480 [facility] Comment on above: Performed By: #### C MP, CBCA, 1798-8, 64335-4, 5643-2, 3040-3, PINR, 98029-8 #### [facility] ([id number]) [address] [address] Glucose Glucometer (BldC) [M ass/Vol]on 12-14-2023 Glucose [Mass/Vol] 111 mg/dL High 65-99 [facility] Glucose [Mass/Vol] 99 mg/dL Normal 65-99 [facility] Glucose [Mass/Vol] 132 mg/dL High 65-99 [facility] Glucose [Mass/Vol] 110 mg/dL High 65-99 [facility] LIPASEon 12-14-2023 Lipase [Catalytic activity/Vol] 45 U/L Normal 11-82 [facility] Comment on above: Performed By: #### C MP, CBCA, 1798-8, 73746-5, 5643-2, 3040-3, PINR, 49265-8 #### [facility] ([id number]) [address], [address] [place] [address] PROTIME AND INRon 12-14-2023 INR Coag (PPP) [Relative time] 0.9 {INR} Normal 0.8-1.1 [facility] Comment on above: Performed By: #### C MP, CBCA, 1798-8, 62404-1, 5643-2, 3040-3, PINR, 90421-6 #### [facility] ([id number]) [address], [address] [place] [address] PT Coag (PPP) [Time] 10.2 s Normal 9.8-13.2 [facility] Comment on above: Performed By: #### C MP, CBCA, 1798-8, 27980-0, 5643-2, 3040-3, PINR, 76880-2 #### [facility] ([id number]) [address], [address] [place] [address] Troponin I.cardiac High sens itivity method [Mass/Vol]on 12-14-2023 3 HOUR TROP I, HIGH SENSITIVITY 7 ng/L Normal <16 [facility] Comment on above: Performed By: #### C MP, CBCA, 1798-8, 02223-4, 5643-2, 3040-3, PINR, 40329-7 #### [facility] ([id number]) [address], [address] [place] [address] URINALYSISon 12-14-2023 Bilirubin Ql (U) Negative Normal NEG [facility] Comment on above: Performed By: #### C MP, CBCA, 1798-8, 94130-0, 5643-2, 3040-3, PINR, 04797-8 #### [facility] ([id number]) [address], [address] [place] [address] BLOOD/HGB Negative Normal NEG [facility] Comment on above: Performed By: #### C MP, CBCA, 1798-8, 22284-4, 5643-2, 3040-3, PINR, 29630-1 #### [facility] ([id number]) [address], [address] [place] [address] Color (U) YELLOW Normal YELLOW [facility] Comment on above: Performed By: #### C MP, CBCA, 1798-8, 92528-4, 5643-2, 3040-3, PINR, 81714-3 #### [facility] ([id number]) [address], [address] [place] [address] Glucose Ql (U) Negative Normal NEG [facility] Comment on above: Performed By: #### C MP, CBCA, 1798-8, 52267-4, 5643-2, 3040-3, PINR, 69946-6 #### [facility] ([id number]) [address], [address] [place] [address] Ketones Ql (U) Negative Normal NEG [facility] Comment on above: Performed By: #### C MP, CBCA, 1798-8, 00932-2, 5643-2, 3040-3, PINR, 56302-1 #### [facility] ([id number]) [address], [address] [place] [address] Leukocyte esterase Test strip Ql (U) Negative Normal NEG [facility] Comment on above: Performed By: #### C MP, CBCA, 1798-8, 12541-8, 5643-2, 3040-3, PINR, 03446-8 #### [facility] ([id number]) [address], [address] [place] [address] Nitrite Ql (U) Negative Normal NEG [facility] Comment on above: Performed By: #### C MP, CBCA, 1798-8, 12934-1, 5643-2, 3040-3, PINR, 92768-2 #### [facility] ([id number]) [address], [address] [place] [address] pH (U) 6.5 [pH] Normal 5.0-8.5 [facility] Comment on above: Performed By: #### C MP, CBCA, 1798-8, 50986-9, 5643-2, 3040-3, PINR, 64752-0 #### [facility] ([id number]) [address], [address] [place] [address] Protein Ql (U) Negative Normal NEG [facility] Comment on above: Performed By: #### C MP, CBCA, 1798-8, 39877-2, 5643-2, 3040-3, PINR, 38747-0 #### [facility] ([id number]) [address] [address] [place] [address] Specific gravity (U) [Rel density] 1.008 Normal 1.003-1.035 [facility] Comment on above: Performed By: #### C MP, CBCA, 1798-8, 31185-9, 5643-2, 3040-3, PINR, 37604-6 #### [facility] ([id number]) [address], [address] [place] [address] TURBIDITY CLEAR Normal CLEAR [facility] Comment on above: Performed By: #### C MP, CBCA, 1798-8, 87390-3, 5643-2, 3040-3, PINR, 72961-4 #### [facility] ([id number]) [address] [place] [address] Urinalysis dipstick W Reflex Microscopic panel (U) URINE RECEIVED WITHOUT PRESERVATIVE-DELAYS IN TRANSPORT MAY AFFECT RESULTS.INTERPRET WITH CAUTION AND CLINICAL CORRELATION IS RECOMMENDED. Normal [facility] Comment on above: Performed By: #### C MP, CBCA, 1798-8, 75183-1, 5643-2, 3040-3, PINR, 52347-0 #### [facility] ([id number]) [address] [place] [address] Urobilinogen (U) [Mass/Vol] mg/dL Normal <1.1 [facility] Comment on above: Performed By: #### C MP, CBCA, 1798-8, 78819-5, 5643-2, 3040-3, PINR, 87941-6 #### [facility] ([id number]) [address], [address] [place] [address] XR CHEST 1 VWon 12-14-2023 XR CHEST 1 VW XR CHEST 1 VW Clinical History: Trauma. Portable Upright chest: 12/14/2023 Comparison: None Findings: A single portable view of the chest was obtained. Is mild cardiac prominence. Pulmonary vessels are not enlarged. No pneumothorax or focal infiltrate is evident. There is no visible pleural effusion. IMPRESSION: No acute infiltrate. Finalized by eVl Herrmann MD on 12/14/2023 5:25 AM Normal [facility] aPTT Coag (PPP) [Time]on aPTT Coag (Bld) [Time] 30 s Normal 26-37 [facility] Comment on above: Performed By: #### C MP, CBCA, 1798-8, 19592-8, 5643-2, 3040-3, PINR, 83638-6 #### [facility] ([id number]) [address] [place] [address] LIPID PROFILEon 04-28-2022 CHOL-HDL RATIO NORM SEE BELOW Normal [facility] Comment on above: Result Comment: 3.3 - 4.4 LOW RISK 4.4 - 7.1 AVERAGE RISK 7.1 - 11.0 MODERATE RISK >11.0 HIGH RISK Performed By: #### L IPID, LIVER #### [facility] [address] [address] [address] Dora Mora Cholesterol [Mass/Vol] 199 mg/dL Normal <=200 [facility] Comment on above: Performed By: #### L IPID, LIVER #### [facility] [address] [address] [address] Dora Mora Cholesterol in HDL [Mass/Vol] 75 mg/dL Critically high 40-60 [facility] Comment on above: Performed By: #### L IPID, LIVER #### [facility] [address] [address] [address] Dora Mora Cholesterol in LDL [Mass/Vol] 86.2 mg/dL Normal [facility] Comment on above: Performed By: #### L IPID, LIVER #### [facility] [address] [place], [place] [address] Dr. Droa Mora Cholesterol.total/Ch olesterol in HDL [Mass ratio] 2.7 {ratio} Normal [facility] Comment on above: Performed By: #### L IPID, LIVER #### [facility] [address] [place], [place] [address] Dr. Dora Mora HDL NORMAL > or = 60 mg/dl - LO W CARDIOVASCULAR RISK <40 mg/dl - HIGH CARDIOVASCULAR RISK Normal [facility] Comment on above: Performed By: #### L IPID, LIVER #### [facility] [id number] Dora Mora LDL CALC NORMAL SEE BELOW Normal [facility] Comment on above: Result Comment: <100 mg/dl OPTIMAL 100 - 129 mg/dl NEAR OR ABOVE OPTIMAL 130 - 159 mg/dl BORDERLINE HIGH 160 - 189 mg/dl HIGH >190 mg/dl VERY HIGH Performed By: #### L IPID, LIVER #### [facility] [address] [address] [address] Dora Mora Triglyceride [Mass/Vol] 189 mg/dL Critically high <=150 [facility] Comment on above: Performed By: #### L IPID, LIVER #### [facility] [address] [address] [address] Dora Mora VLDL CALC 37.8 mg/dL Normal [facility] Comment on above: Performed By: #### L IPID, LIVER #### [facility] [address] [address] [address] Dora Mora LIVER PROFILEon 04-28-2022 Albumin [Mass/Vol] 3.7 g/dL Normal 3.4-5.0 [facility] Comment on above: Performed By: #### L IPID, LIVER #### [facility] [address] [place] [address] Dr. Dora Mora Albumin/Globulin [Mass ratio] 1.0 {ratio} Normal [facility] Comment on above: Performed By: #### L IPID, LIVER #### [facility] [address] [place] [address] Dr. Dora Mora ALP [Catalytic activity/Vol] 62 U/L Normal 46-116 [facility] Comment on above: Performed By: #### L IPID, LIVER #### [facility] [address] [address] [address] Dora Mora ALT [Catalytic activity/Vol] 18 U/L Normal 14-59 [facility] Comment on above: Performed By: #### L IPID, LIVER #### [facility] [address] [address] [address] Dora Mora AST [Catalytic activity/Vol] 19 U/L Normal 15-37 [facility] Comment on above: Performed By: #### L IPID, LIVER #### [facility] [address] [address] [address] Dora Mora BILI, CONJUGATED 0.1 mg/dL Normal 0.0-0.2 [facility] Comment on above: Performed By: #### L IPID, LIVER #### [facility] [address] [address] [address] Dora Mora Bilirubin [Mass/Vol] 0.5 mg/dL Normal 0.2-1.0 [facility] Comment on above: Performed By: #### L IPID, LIVER #### [facility] [address] [address] [address] Dora Mora Globulin (S) [Mass/Vol] 3.7 g/dL Normal [facility] Comment on above: Performed By: #### L IPID, LIVER #### [facility] [address] [place] [address] Dr. Dora Mora Protein [Mass/Vol] 7.4 g/dL Normal 6.4-8.2 [facility] Comment on above: Performed By: #### L IPID, LIVER #### [facility] [address] [place] [address] Dr. Dora Mora XR KUB 1 VIEWon [...] SHEMAR ARELLANO Date: 2022-03-22 12:08 Normal [facility] INSULINon 01-21-2022 Insulin 16.5 uIU/mL Normal 2.6-24.9 [facility] Comment on above: Performed By: #### I NSULIN #### [facility] [address] [place] [address] Dr. Dora Mora CBC AUTO DIFFon 10-05-2022 BASO # 0.0 103/ul Normal 0.0-0.1 [facility] Comment on above: Performed By: #### L IPID, LIVER #### [facility] [address] [place] [address] Dr. Dora Mora Basophils/100 WBC (Bld) 0.5 % Normal 0.2-2.0 [facility] Comment on above: Performed By: #### L IPID, LIVER #### [facility] [address] [place] [address] Dr. Dora Mora EO # 0.2 103/ul Normal 0.0-0.7 [facility] Comment on above: Performed By: #### L IPID, LIVER #### [facility] [address] [place] [address] Dr. Dora Mora Eosinophils/100 WBC (Bld) 2.4 % Normal 0.9-7.0 [facility] Comment on above: Performed By: #### L IPID, LIVER #### [facility] [address] [place] [address] Dr. Dora Mora Erythrocyte distribution width (RBC) [Ratio] 12.9 % Normal 11.0-15.0 [facility] Comment on above: Performed By: #### L IPID, LIVER #### [facility] [address] [place] [address] Dr. Dora Mora Hematocrit (Bld) [Volume fraction] 39.9 % Normal 36.0-48.0 [facility] Comment on above: Performed By: #### L IPID, LIVER #### [facility] [address] [place] [address] Dr. Dora Mora Hemoglobin (Bld) [Mass/Vol] 13.4 g/dL Normal 12.0-16.0 [facility] Comment on above: Performed By: #### L IPID, LIVER #### [facility] [address] [place] [address] Dr. Dora Mora IG # 0.07 10e3/ul Critically high 0.00-0.03 [facility] Comment on above: Performed By: #### L IPID, LIVER #### [facility] [address] [address] [address] Dora Mora IG % 0.9 % Critically high 0.0-0.5 [facility] Comment on above: Performed By: #### L IPID, LIVER #### [facility] [address] [address] [address] Dora Mora LYMPH # 2.5 103/ul Normal 1.2-3.8 [facility] Comment on above: Performed By: #### L IPID, LIVER #### [facility] [address] [address] [address] Dora Mora Lymphocytes/100 WBC (Bld) 32.4 % Normal 20.5-60.0 [facility] Comment on above: Performed By: #### L IPID, LIVER #### [facility] [address] [place] [address] Dr. Dora Mora MANUAL DIFF REQ NO Normal [facility] Comment on above: Performed By: #### L IPID, LIVER #### [facility] [address] [place] [address] Dr. Dora Mora MCH (RBC) [Entitic mass] 30.1 pg Normal 26.7-34.0 [facility] Comment on above: Performed By: #### L IPID, LIVER #### [facility] [address] [place] [address] Dr. Dora Mora MCHC (RBC) [Mass/Vol] 33.6 g/dL Normal 29.9-35.2 [facility] Comment on above: Performed By: #### L IPID, LIVER #### [facility] [address] [address] [address] Dora Mora MCV (RBC) [Entitic vol] 89.7 fL Normal 81.0-99.0 [facility] Comment on above: Performed By: #### L IPID, LIVER #### [facility] [address] [address] [address] Dora Mora MONO # 0.5 103/ul Normal 0.3-0.8 [facility] Comment on above: Performed By: #### L IPID, LIVER #### [facility] [address] [address] [address] Dora Mora Monocytes/100 WBC (Bld) 6.5 % Normal 1.7-12.0 [facility] Comment on above: Performed By: #### L IPID, LIVER #### [facility] [address] [address] [address] Dora Mora NEUT # 4.3 103/ul Normal 1.4-6.5 [facility] Comment on above: Performed By: #### L IPID, LIVER #### [facility] [address] [place] [address] Dr. Dora Mora Neutrophils/100 WBC (Bld) 57.3 % Normal 43.0-75.0 [facility] Comment on above: Performed By: #### L IPID, LIVER #### [facility] [address] [place] [address] Dr. Dora Mora Platelet mean volume (Bld) [Entitic vol] 9.2 fL Critically low 9.5-13.5 [facility] Comment on above: Performed By: #### L IPID, LIVER #### [facility] [address] [place] [address] Dr. Dora Mora PLT 261 103/ul Normal 150-450 [facility] Comment on above: Performed By: #### L IPID, LIVER #### [facility] [address] [place] [address] Dr. Dora Mora RBC 4.45 106/ul Normal 4.20-5.40 [facility] Comment on above: Performed By: #### L IPID, LIVER #### [facility] [address] [place] [address] Dr. Dora Mora WBC 7.6 103/ul Normal 4.0-11.0 [facility] Comment on above: Performed By: #### L IPID, LIVER #### [facility] [address] [place] [address] Dr. Dora Mora FREE THYROXINE INDEX T7on FTI 2.93 Normal 1.30-4.50 [facility] Comment on above: Performed By: #### C MP, TSH, T7, LIPID #### [facility] [address] [address] [address] Dora Mora T3U 38.0 % Normal 30.0-39.0 [facility] Comment on above: Performed By: #### C MP, TSH, T7, LIPID #### [facility] [address] [address] [address] Dora Mora T4 [Mass/Vol] 7.70 ug/dL Normal 4.80-13.90 [facility] Comment on above: Performed By: #### C MP, TSH, T7, LIPID #### [facility] [address] [address] [address] Dora Mora GLYCOHEMOGLOBIN A1Con 2021 ADA RECOMMENDATION SEE BELOW Normal [facility] Comment on above: Result Comment: ADA RECOMMENDED LIMIT 4.0 - 6.0 ADA THERAPEUTIC TARGET < 7.0 ACTION SUGGESTED > 7.0 Performed By: #### A 1C #### [facility] [address] [address] [address] Dora Mora Glucose [Mass/Vol] 148 mg/dL Normal [facility] Comment on above: Performed By: #### A 1C #### [facility] [address] [address] [address] Dora Mora HbA1c (Bld) [Mass fraction] 6.8 % Critically high 4.5-6.2 [facility] Comment on above: Performed By: #### A 1C #### [facility] [address] [address] [address] Dora Mora IRONon 01-20-2022 Iron [Mass/Vol] 88.0 ug/dL Normal 50.0-170.0 [facility] Comment on above: Performed By: #### I ADRIANA CABEZAS #### [facility] [address] [place] [address] Dr. Dora Mora LIPID PROFILEon 01-20-2022 CHOL-HDL RATIO NORM SEE BELOW Normal [facility] Comment on above: Result Comment: 3.3 - 4.4 LOW RISK 4.4 - 7.1 AVERAGE RISK 7.1 - 11.0 MODERATE RISK >11.0 HIGH RISK Performed By: #### L IPID, LIVER #### [facility] [address] [place] [address] Dr. Dora Mora Cholesterol [Mass/Vol] 180 mg/dL Normal <=200 [facility] Comment on above: Performed By: #### L IPID, LIVER #### [facility] [address] [place] [address] Dr. Dora Mora Cholesterol in HDL [Mass/Vol] 64 mg/dL Critically high 40-60 [facility] Comment on above: Performed By: #### L IPID, LIVER #### [facility] [address] [place] [address] Dr. Dora Mora Cholesterol in LDL [Mass/Vol] 55.4 mg/dL Normal [facility] Comment on above: Performed By: #### L IPID, LIVER #### [facility] [address] [place] [address] Dr. Dora Mora Cholesterol.total/Ch olesterol in HDL [Mass ratio] 2.8 {ratio} Normal [facility] Comment on above: Performed By: #### L IPID, LIVER #### [facility] [address] [place] [address] Dr. Dora Mora HDL NORMAL > or = 60 mg/dl - LO W CARDIOVASCULAR RISK <40 mg/dl - HIGH CARDIOVASCULAR RISK Normal [facility] Comment on above: Performed By: #### L IPID, LIVER #### [facility] [address] [place] [address] Dr. Dora Mora LDL CALC NORMAL SEE BELOW Normal [facility] Comment on above: Result Comment: <100 mg/dl OPTIMAL 100 - 129 mg/dl NEAR OR ABOVE OPTIMAL 130 - 159 mg/dl BORDERLINE HIGH 160 - 189 mg/dl HIGH >190 mg/dl VERY HIGH Performed By: #### L IPID, LIVER #### [facility] [address] [place] [address] Dr. Dora Mora Triglyceride [Mass/Vol] 303 mg/dL Critically high <=150 [facility] Comment on above: Performed By: #### L IPID, LIVER #### [facility] [address] [address] [address] oDra Mora VLDL CALC 60.6 mg/dL Normal [facility] Comment on above: Performed By: #### L IPID, LIVER #### [facility] [address] [place] [address] Dr. Dora Mora PROF 14(COMP METB)on 022 Albumin [Mass/Vol] 3.4 g/dL Normal 3.4-5.0 [facility] Comment on above: Performed By: #### C MP, TSH, T7, LIPID #### [facility] [address] [place] [address] Dr. Dora Mora Albumin/Globulin [Mass ratio] 0.9 {ratio} Normal [facility] Comment on above: Performed By: #### C MP, TSH, T7, LIPID #### [facility] [address] [place] [address] Dr. Dora Mora ALP [Catalytic activity/Vol] 61 U/L Normal 46-116 [facility] Comment on above: Performed By: #### C MP, TSH, T7, LIPID #### [facility] [address] [place] [address] Dr. Dora Mora ALT [Catalytic activity/Vol] 22 U/L Normal 14-59 [facility] Comment on above: Performed By: #### C MP, TSH, T7, LIPID #### [facility] [address] [place] [address] Dr. Dora Mora Anion gap [Moles/Vol] 10.9 mmol/L Normal [facility] Comment on above: Performed By: #### C MP, TSH, T7, LIPID #### [facility] [address] [place] [address] Dr. Dora Mora AST [Catalytic activity/Vol] 13 U/L Critically low 15-37 [facility] Comment on above: Performed By: #### C MP, TSH, T7, LIPID #### [facility] [address] [place] [address] Dr. Dora Mora Bilirubin [Mass/Vol] 0.6 mg/dL Normal 0.2-1.0 [facility] Comment on above: Performed By: #### C MP, TSH, T7, LIPID #### [facility] [address] [address] [address] Dora Mora Calcium [Mass/Vol] 9.4 mg/dL Normal 8.5-10.1 [facility] Comment on above: Performed By: #### C MP, TSH, T7, LIPID #### [facility] [address] [place] [address] Dr. Dora Mora Chloride [Moles/Vol] 103 mmol/L Normal 98-107 [facility] Comment on above: Performed By: #### C MP, TSH, T7, LIPID #### [facility] [address] [place] [address] Dr. Dora Mora CO2 [Moles/Vol] 28.6 mmol/L Normal 21.0-32.0 [facility] Comment on above: Performed By: #### C MP, TSH, T7, LIPID #### [facility] [address] [place] [address] Dr. Dora Mora Creatinine [Mass/Vol] 0.86 mg/dL Normal 0.55-1.02 [facility] Comment on above: Performed By: #### C MP, TSH, T7, LIPID #### [facility] [address] [place] [address] Dr. Dora Mora EGFR-AF TANZANIAN >60 Normal >=[address] [facility] Comment on above: Performed By: #### C MP, TSH, T7, LIPID #### [facility] [address] [place] [address] Dr. Dora Mora EGFR-NON AF TANZANIAN >60 Normal >=60 [facility] Comment on above: Performed By: #### C MP, TSH, T7, LIPID #### [facility] [address] [place] [address] Dr. Dora Mora Globulin (S) [Mass/Vol] 3.6 g/dL Normal [facility] Comment on above: Performed By: #### C MP, TSH, T7, LIPID #### [facility] [address] [address] [address] Dora Mora Glucose [Mass/Vol] 167 mg/dL Critically high 74-106 [facility] Comment on above: Performed By: #### C MP, TSH, T7, LIPID #### [facility] [address] [address] [address] Dora Mora Potassium [Moles/Vol] 4.5 mmol/L Normal 3.5-5.1 [facility] Comment on above: Performed By: #### C MP, TSH, T7, LIPID #### [facility] [address] [place] [address] Dr. Dora Mora Protein [Mass/Vol] 7.0 g/dL Normal 6.4-8.2 [facility] Comment on above: Performed By: #### C MP, TSH, T7, LIPID #### [facility] [address] [place] [address] Dr. Dora Mora Sodium [Moles/Vol] 138 mmol/L Normal 136-145 [facility] Comment on above: Performed By: #### C MP, TSH, T7, LIPID #### [facility] [address] [address] [address] Dora Mora Urea nitrogen [Mass/Vol] 20.0 mg/dL Critically high 7.0-18.0 [facility] Comment on above: Performed By: #### C MP, TSH, T7, LIPID #### [facility] [address] [place] [address] Dr. Dora Mora Urea nitrogen/Creatinine [Mass ratio] 23.3 mg/mg Normal [facility] Comment on above: Performed By: #### C MP, TSH, T7, LIPID #### [facility] [address] [place] [address] Dr. Dora Mora TSHon 01-20-2022 TSH 1.657 uIU/mL Normal 0.358-3.740 [facility] Comment on above: Performed By: #### C MP, TSH, T7, LIPID #### [facility] [address] [place] [address] Dr. Dora Mora VITAMIN D 25 OHon 01-20-2022 VIT D 25-OH 96.7 ng/mL Normal [facility] Comment on above: Performed By: #### I JOCELYNN, VITAD #### [facility] [address] [address] [address] Dora Mora VIT D RANGES SEE BELOW Normal [facility] Comment on above: Result Comment: <20 ng/mL Vit D deficient 20 - <30 ng/mL Vit D insufficient 30 - 100 ng/mL Vit D sufficient >100 ng/mL Potential Toxicity Performed By: #### I JOCELYNN, VITAD #### [facility] [address] [address] [address] Dora Mora Vital Signs Date Time Vital Sign Value Performing Clinician Nithin bhatti 04-02-2024 09:58-0500 Blood Pressure Location Ruiz WELCH [facility] 04-02-2024 09:58-0500 Body temperature 98.6 [degF] Ruiz WELCH [facility] 04-02-2024 09:58-0500 Diastolic blood pressure 58 mm[Hg] Ruiz WELCH [facility] 04-02-2024 09:58-0500 Heart rate 61 /min Ruiz WELCH [facility] 04-02-2024 09:58-0500 Respiratory rate 16 /min Ruiz WELCH [facility] 04-02-2024 09:58-0500 Systolic blood pressure 124 mm[Hg] Ruiz WELCH [facility] 04-02-2022 08:12-0500 Blood Pressure Location Ruiz WELCH [facility] 04-02-2022 08:12-0500 Diastolic blood pressure 72 mm[Hg] Ruiz WELCH [facility] 04-02-2022 08:12-0500 Heart rate 68 /min Ruiz WELCH [facility] 04-02-2022 08:12-0500 Respiratory rate 16 /min Ruiz WELCH [facility] 04-02-2022 08:12-0500 Systolic blood pressure 124 mm[Hg] Ruiz WELCH [facility] Encounters Encounter Date Encounter Type Care Provider Facility Start: 06-04-2024 End: 06-04-2024 ambulatory [facility] Start: 04-02-2024 End: 04-02-2024 ambulatory Ruiz WELCH Facility:[facility] Start: 04-02-2024 End: 04-02-2024 Patient encounter procedure Ruiz WELCH [facility] Start: 12-23-2023 End: 12-23-2023 ambulatory [facility] Start: 12-17-2023 End: 12-21-2023 Evaluation and management of inpatient [facility] Start: 12-15-2023 End: 12-21-2023 Evaluation and management of inpatient LYLEBIA L ZANE [facility] Start: 12-15-2023 End: 12-15-2023 ambulatory DESHAWN PIRES [facility] Start: 12-14-2023 End: 12-21-2023 Evaluation and management of inpatient [facility] Start: 12-14-2023 ambulatory [facility] Start: 12-14-2023 End: 12-21-2023 Evaluation and management of inpatient JODIE GARCIA [facility] Start: 12-14-2023 End: 12-21-2023 Emergency department patient visit LOCO AYOUB [facility] Start: 12-14-2023 End: 12-20-2023 Evaluation and management of inpatient TYRESE ORTEGA [facility] Start: 12-14-2023 ambulatory [facility] Start: 06-09-2022 End: 07-07-[address] JENNIFER SHANNON . Facility:[facility] Start: 04-28-2022 End: 04-29-[address] JENNIFER SHANNON . Facility:[facility] Start: 04-02-2022 End: 04-02-2022 Patient encounter procedure Ruiz WELCH [facility] Start: 03-22-2022 End: 03-23-[address] JENNIFER SHANNON . Facility:[facility] Start: 01-20-2022 End: 01-21-[address] JENNIFER SHANNON . Facility: Procedures Date Procedure Procedure Detail Performing Clinician Start: 04-28-2021 Excisional biopsy Xin WELCH Comment on above: right hand- inflamed seborrheic keratosis Start: 05-03-2013 Extracorporeal shock wave lithotripsy of calculus of kidney Ruiz WELCH Comment on above: left stent removal Start: 04-26-2013 Cystoscopic insertio n of ureteric stent Ruiz WELCH Comment on above: left Start: 02-02-2010 Cystoscopy Ruiz ASH Comment on above: right stent removal Start: 01-28-2010 Cystoscopic insertio n of ureteric stent Ruiz WELCH Start: 01-19-2010 Cystourethroscopy wi th dilation of urethral stricture Ruiz WELCH Start: 04-18-2009 Coronary artery bypa ss grafts x 4 Ruiz WELCH Brain stem hemorrhag e (disorder) Ruiz WELCH Fall (finding) Ruiz ROSA S Ophthalmic surgery ( qualifier value) Ruiz WELCH Immunizations Immunization Date Immunization Notes Care Provider Eliane santiago 04-03-2021 SARS-CoV-2 (COVID-19 ) mRNA-1273 vaccine Ruiz WELCH [facility] 09-25-2020 SARS-CoV-2 (COVID-19 ) mRNA-1273 vaccine Ruiz WELCH [facility] 08-18-2020 SARS-CoV-2 (COVID-19 ) mRNA-1273 vaccine Ruiz WELCH [facility] 04-18-2020 SARS-CoV-2 (COVID-19 ) mRNA-1273 vaccine Ruiz WELCH [facility] Comment on above: Result Comment: pt d oes not have her card and can not remember the dates Payers Date Payer Category Payer Medicare [id number] 1959 Private Health Insurance [id number] 1940 Unknown [id number] 2.16.84 [id number] 1940 Unknown [id number] 2.16.84 [id number] 1940 Unknown [id number] 2.16.84 [id number] 1940 Unknown [id number] 2.16.84 [id number] 1940 Unknown [id number] 2.16.8 [id number] 1940 Unknown [id number] 2.16.8 [id number] 1940 Unknown [id number] 2.16.8 [id number] 1940 Unknown [id number] 2.16.8 [id number] 1940 Unknown [id number] 2.16.8 [id number] 1940 Unknown [id number] 2.16.8 [id number] 1940 Unknown [id number] 2.16.8 [id number] 1940 Unknown [id number] 2.16.8 40.1.141983.3.579.2.1285 1940 Unknown [id number] 2.16.8 [id number] 1940 Unknown [id number] 2.16.8 [id number] 1940 Unknown [id number] 2.16.8 [id number] Social History Date Type Detail Facility Start: 04-21-2021 End: 04-02-2024 Tobacco smoking status Never smoked tobacco (finding) [facility] Tobacco smoking status Never [facility] Sex Assigned At Female [facility] Functional Status Date Assessment Result Facility 04-02-2024 Functional Status N/A [facility] 04-02-2022 Functional Status N/A [facility] Progress note 06-04-2024 Note Date & Type Note Facility 06-04-2024 Note [facility] Note Chief Complaint: Patient here for 1 year follow up CAD, hypertension, and hyperlipidemia. She was admitted to [facility] in Nov 2023 for intracerebral hemorrhage s/p fall. Had echo and wore 7 day Holter monitor also. She has been off as aspirin since the fall. believes the fall was caused by syncope. Patient denies chest pain, SOB, palpitations, and recurrent syncope. HPI: Kelin Rosenberg is a 81 y.o. [...] and therefore cannot sleep properly at night UPDATE 06/04/2024 HOSPITAL COURSE SUMMARY: Kelin Rosenberg is an 83 y.o. White or female states on Tuesday her reports that she fell in the living room. She is amnestic to events. She was initially taken to [facility] and had a CTH which was read as negative and she was admitted for observation status overnight and sent home the following morning. Family later noticed she had slurred speech and she was taken back to the hospital and found that she did have a subarachnoid on original imaging. They spoke with Deejay Stroke - felt this was traumatic, she was transferred to [facility] for definitive care. On arrival she is alert and interactive. Injuries/Traumatic issues: Fall -PT/OT assessed for SNF, arrangements made Multiple Subarachnoid hemorrhage (SAH) -Consult to NSx -Repeat CTH stable -Keppra 1g STAT, then Keppra 500mg BID for 7 days for seizure ppx, to end 12/20 Syncope -Cardiology consultation -ECHO EF 60-65% -Telemetry -Loop recorder in place Pain control:Fioricet Nutrition: Regular, PO intake significantly improved prior to discharge Disposition: SNF The patient was seen and examined on day of discharge and this discharge summary is in conjunction with any daily progress note from day of discharge. Pulse: 70 Resp: 24 BP: 115/58 Temp: 36.2 ???C (97.2 ???F) All home medications restarted at time of discharge with exception of ASA which is to be held for 10 days following injury. Treatments: none * No surgery found * Discharged Condition: Stable DISCHARGE INSTRUCTIONS: Discharge Medications: Your medication list START taking these medications Instructions Last Dose Given Next Dose Due tfzlhoogar-ppuvwqsozctpw-feky 50-325-40 mg per tablet Commonly known as: FIORICET, ESGIC Take 2 tablets by mouth every 8 (eight) hours as needed for headaches. levETIRAcetam 500 mg tablet Commonly known as: KEPPRA Take 1 tablet (500 mg total) by mouth every 12 (twelve) hours for 1 day. sennosides-docusate sodium 8.6-50 mg Commonly known as: SENOKOT-S Take 2 tablets by mouth nightly. CHANGE how you take these medications Instructions Last Dose Given Next Dose Due aspirin 81 mg What changed: additional instructions Take 2 tablets (162 mg total) by mouth in the morning. Do not resume until 10 days following injury 12/24/23.. CONTINUE taking these medications Instructions Last Dose Given Next Dose Due calcium carbonate 600 mg elemental (1,500 mg) tablet Commonly known as: OS-GEOVANNA cholecalciferol (vitamin D3) 5,000 units capsule Commonly known as: VITAMIN D3 docusate sodium 100 mg capsule Commonly known as: COLACE EFFER-K 25 MEQ disintegrating tablet Generic drug: potassium bicarbonate gabapentin 300 mg capsule Commonly known as: NEURONTIN metFORMIN 500 mg tablet Commonly known as: GLUCOPHAGE metFORMIN 500 mg tablet Commonly known as: GLUCOPHAGE metoprolol succinate XL 50 mg 24 hr tablet Commonly known as: TOPROL XL ramipriL 2.5 mg capsule Commonly known as: ALTACE simvastatin 20 mg tablet Commonly known as: ZOCOR Where to Get Your Medications These medications were sent to [facility] - [place], [place] - [address] [place] [address] levETIRAcetam 500 mg tablet You can get these medications from any pharmacy Bring a paper prescription for each of these medications qnbsajslbx-paswanwezurtj-acei 50-325-40 mg per tablet Information about where to get these medications is not yet available Ask your nurse or doctor about these medications aspirin 81 mg sennosides-docusate sodium 8.6-50 (more content not included)... [facility] Discharge instructions 04-02-2024 Note Date & Type Note Facility 04-02-2024 Hospital Discharg e instructions Patient Education 04/02/2024 11:01:22 Dietary Guidelines to Help Prevent Kidney Stones Dietary Guidelines to Help Prevent Kidney Stones Kidney stones are deposits of minerals and salts that form inside your kidneys. Your risk of developing kidney stones may be greater depending on your diet, your lifestyle, the medicines you take, and whether you have certain medical conditions. Most people can lower their risks of developing kidney stones by following these dietary guidelines. Your dietitian may give you more specific instructions depending on your overall health and the type of kidney stones you tend to develop. What are tips for following this plan? Reading food labels Choose foods with no salt added or low-salt labels. Limit your salt (sodium) intake to less than 1,500 mg a day. Choose foods with calcium for each meal and snack. Try to eat about 300 mg of calcium at each meal. Foods that contain 200 500 mg of calcium a serving include: ?8 oz (237 mL) of milk, xbozzjn-gyeoqimydqxn-svvwk milk, and calcium-fortifiedfruit juice. Calcium-fortified means that calcium has been added to these drinks. ?8 oz (237 mL) of kefir, yogurt, and soy yogurt. ?4 oz (114 g) of tofu. ?1 oz (28 g) of cheese. ?1 cup (150 g) of dried figs. ?1 cup (91 g) of cooked broccoli. ?One 3 oz (85 g) can of sardines or mackerel. Most people need 1,000 1,500 mg of calcium a day. Talk to your dietitian about how much calcium is recommended for you. Shopping Buy plenty of fresh fruits and vegetables. Most people do not need to avoid fruits and vegetables, even if these foods contain nutrients that may contribute to kidney stones. When shopping for convenience foods, choose: ?Whole pieces of fruit. ?Pre-made salads with dressing on the side. ?Low-fat fruit and yogurt smoothies. Avoid buying frozen meals or prepared deli foods. These can be high in sodium. Look for foods with live cultures, such as yogurt and kefir. Choose high-fiber grains, such as whole-wheat breads, oat bran, and wheat cereals. Cooking Do not add salt to food when cooking. Place a salt shaker on the table and allow each person to add their own salt to taste. Use vegetable protein, such as beans, textured vegetable protein (TVP), or tofu, instead of meat in pasta, casseroles, and soups. Meal planning Eat less salt, if told by your dietitian. To do this: ?Avoid eating processed or pre-made food. ?Avoid eating fast food. Eat less animal protein, including cheese, meat, poultry, or fish, if told by your dietitian. To do this: ?Limit the number of times you have meat, poultry, fish, or cheese each week. Eat a diet free of meat at least 2 days a week. ?Eat only one serving each day of meat, poultry, fish, or seafood. ?When you prepare animal proteins, cut pieces into small portion sizes. For most meat and fish, one serving is about the size of the palm of your hand. Eat at least five servings of fresh fruits and vegetables each day. To do this: ?Keep fruits and vegetables on hand for snacks. ?Eat one piece of fruit or a handful of berries with breakfast. ?Have a salad and fruit at lunch. ?Have two kinds of vegetables at dinner. You may be told to limit foods that are high in a substance called oxalate. These include: ?Spinach (cooked), rhubarb, beets, sweet potatoes, and Chinese chard. ?Peanuts. ?Potato chips, algerian fries, and baked potatoes with skin on. ?Nuts and nut products. ?Chocolate. If you regularly take a diuretic medicine, make sure to eat at least 1 or 2 servings of fruits or vegetables that are high in potassium each day. These include: ?Avocado. ?Banana. ?Traverse, prune, carrot, or tomato juice. ?Baked potato. ?Cabbage. ?Beans and split peas. Lifestyle Drink enough fluid to keep your urine pale yellow. This is the most important thing you can do. Spread your fluid intake throughout the day. If you drink alcohol: ?Limit how much you have to: ?0 1 drink a day for women who are not . ?0 2 drinks a day for men. ?Know how much alcohol is in your drink. In the [place] one drink equals one 12 oz bottle of beer (355 mL), one 5 oz glass of wine (148 mL), or one 1 oz glass of hard liquor (44 mL). Lose weight if told by your health care provider. Work with your dietitian to find an eating plan and weight loss strategies that work best for you. General information Talk to your health care provider and dietitian about taking daily supplements. Depending on your health and the cause of your kidney stones, you may be told: ?Do not take high-dose supplements of vitamin C (1,000 mg a day or more). ?To take a calcium supplement. ?To take a daily probiotic supplement. ?To take other supplements such as magnesium, fish oil, or vitamin B6. Take qfer-rze-utdrnyp and prescription medicines only as told by your health care provider. These include supplements. What foods should I limit? Limit your intake of the following foods, or eat them as told by your dietitian. Vegetables Spinach. Rhubarb. Beets. Canned vegetables. Pickles. Olives. Baked potatoes with skin. Grains Wheat bran. Baked goods. Salted crackers. Cereals high in sugar. Meats and other proteins Nuts. Nut butters. Large portions of meat, poultry, or fish. Salted, precooked, or cured meats, such as sausages, meat loaves, and hot dogs. Dairy Cheeses. Beverages Regular soft drinks. Regular vegetable juice. Seasonings and condiments Seasoning blends with salt. Salad dressings. Soy sauce. Ketchup. Barbecue sauce. Other foods Canned soups. Canned pasta sauce. Casseroles. Pizza. Lasagna. Frozen meals. Potato chips. Trinidadian fries. The items listed above may not be a complete list of foods and beverages you should limit. Contact a dietitian for more information. What foods should I avoid? Talk to your dietitian about specific foods you should avoid based on the type of kidney stones you have and your overall health. Fruits Grapefruit. The item listed above may not be a complete list of foods and beverages you should avoid. Contact a dietitian for more information. Summary Kidney stones are deposits of minerals and salts that form inside your kidneys. You can lower your risk of kidney stones by making changes to your diet. The most important thing you can do is drink enough fluid. Drink enough fluid to keep your urine pale yellow. Talk to your dietitian about how much calcium you should have each day, and eat less salt and animal protein as told by your dietitian. This information is not intended to replace advice given to you by your health care provider. Make sure you discuss any questions you have with your health care provider. Document Revised: 07/15/2022 Document Reviewed: 07/15/2022 [employer] Patient Education 2023 [employer]. Follow Up Care 06/20/2023 13:56:41 With:SYBIL RODRIGUEZ, Ruiz Rangel, URL Address: [facility] [address] , [place] [address]- When: Unknown [facility] Clinical Note 04-02-2024 Note Date & Type Note Facility 04-02-2024 Note Patient Education Nephrology Dietary Guidelines to Help Prevent Kidney Stones Kidney stones are deposits of minerals and salts that form inside your kidneys. Your risk of developing kidney stones may be greater depending on your diet, your lifestyle, the medicines you take, and whether you have certain medical conditions. Most people can lower their risks of developing kidney stones by following these dietary guidelines. Your dietitian may give you more specific instructions depending on your overall health and the type of kidney stones you tend to develop. What are tips for following this plan? Reading food labels ??? Choose foods with no salt added or low-salt labels. Limit your salt (sodium) intake to less than 1,500 mg a day. ??? Choose foods with calcium for each meal and snack. Try to eat about 300 mg of calcium at each meal. Foods that contain 200?500 mg of calcium a serving include: ? 8 oz (237 mL) of milk, nzvgnjb-cifcpncnmetu-nudqs milk, and calcium-fortifiedfruit juice. Calcium-fortified means that calcium has been added to these drinks. ? 8 oz (237 mL) of kefir, yogurt, and soy yogurt. ? 4 oz (114 g) of tofu. ? 1 oz (28 g) of cheese. ? 1 cup (150 g) of dried figs. ? 1 cup (91 g) of cooked broccoli. ? One 3 oz (85 g) can of sardines or mackerel. Most people need 1,000?1,500 mg of calcium a day. Talk to your dietitian about how much calcium is recommended for you. Shopping ??? Buy plenty of fresh fruits and vegetables. Most people do not need to avoid fruits and vegetables, even if these foods contain nutrients that may contribute to kidney stones. ??? When shopping for convenience foods, choose: ? Whole pieces of fruit. ? Pre-made salads with dressing on the side. ? Low-fat fruit and yogurt smoothies. ??? Avoid buying frozen meals or prepared deli foods. These can be high in sodium. ??? Look for foods with live cultures, such as yogurt and kefir. ??? Choose high-fiber grains, such as whole-wheat breads, oat bran, and wheat cereals. Cooking ??? Do not add salt to food when cooking. Place a salt shaker on the table and allow each person to add their own salt to taste. ??? Use vegetable protein, such as beans, textured vegetable protein (TVP), or tofu, instead of meat in pasta, casseroles, and soups. Meal planning ??? Eat less salt, if told by your dietitian. To do this: ? Avoid eating processed or pre-made food. ? Avoid eating fast food. ??? Eat less animal protein, including cheese, meat, poultry, or fish, if told by your dietitian. To do this: ? Limit the number of times you have meat, poultry, fish, or cheese each week. Eat a diet free of meat at least 2 days a week. ? Eat only one serving each day of meat, poultry, fish, or seafood. ? When you prepare animal proteins, cut pieces into small portion sizes. For most meat and fish, one serving is about the size of the palm of your hand. ??? Eat at least five servings of fresh fruits and vegetables each day. To do this: ? Keep fruits and vegetables on hand for snacks. ? Eat one piece of fruit or a handful of berries with breakfast. ? Have a salad and fruit at lunch. ? Have two kinds of vegetables at dinner. ??? You may be told to limit foods that are high in a substance called oxalate. These include: ? Spinach (cooked), rhubarb, beets, sweet potatoes, and Chinese chard. ? Peanuts. ? Potato chips, algerian fries, and baked potatoes with skin on. ? Nuts and nut products. ? Chocolate. ??? If you regularly take a diuretic medicine, make sure to eat at least 1 or 2 servings of fruits or vegetables that are high in potassium each day. These include: ? Avocado. ? Banana. ? Traverse, prune, carrot, or tomato juice. ? Baked potato. ? Cabbage. ? Beans and split peas. Lifestyle ??? Drink enough fluid to keep your urine pale yellow. This is the most important thing you can do. Spread your fluid intake throughout the day. ??? If you drink alcohol: ? Limit how much you have to: ? 0?1 drink a day for women who are not . ? 0?2 drinks a day for men. ? Know how much alcohol is in your drink. In the [place] one drink equals one 12 oz bottle of beer (355 mL), one 5 oz glass of wine (148 mL), or one 1? oz glass of hard liquor (44 mL). ??? Lose weight if told by your health care provider. Work with your dietitian to find an eating plan and weight loss strategies that work best for you. General information ??? Talk to your health care provider and dietitian about taking daily supplements. Depending on your health and the cause of your kidney stones, you may be told: ? Do not take high-dose supplements of vitamin C (1,000 mg a day or more). ? To take a calcium supplement. ? To take a daily probiotic supplement. ? To take other supplements such as magnesium, fish oil, or vitamin B6. ??? Take stdd-mvm-mcgjbpr and prescription medicines only as told by your health (more content not included)... [facility] Hospital Discharge instructions 04-02-2022 Note Date & Type Note Facility 04-02-2022 Hospital Discharg e instructions Patient Education 04/02/2022 08:53:58 Kidney Stones, Kbwl-px-Eleq Kidney Stones Kidney stones are rock-like masses [...] Follow these instructions at home: Medicines Take sqra-crx-wxoirqs and prescription medicines only as told by [...] 09/20/2008 Document Revised: 08/21/2019 Document Reviewed: 08/21/2019 [employer] Patient Education 2019 [employer]. Follow Up Care 03/30/2021 09:32:03 With:SYBIL RODRIGUEZ, Ruiz Rangel, URL Address: [address] [place] [address]- When: Unknown [facility] Evaluation + Plan note Note Date & Type Note Facility Evaluation + Plan note No data available for this section [facility] Progress note Note Date & Type Note Facility Progress note No data available for this section [facility] Summary Purpose Family History No Family History Records FoundNo Family History Records FoundNo Family History Records FoundNo Family History Records Found No data available for this section No Family History Records Found Advance Directives No Advanced Directives Records FoundNo Advanced Directives Records FoundNo Advanced Directives Records FoundNo Advanced Directives Records FoundNo Advanced Directives Records Found Additional Source Comments Patient Care team informatio n (unrecognized section and content) Personnel Name: Jennifer Shannon MD Address: Address: [address] [place] [address] Personnel Name: Jennifer Shannon MD Address: Address: [address] [place] [address] INFORMATION SOURCE (unrecogn ized section and content) DATE CREATED AUTHOR 07/24/2022 [facility] DATE CREATED AUTHOR AUTHOR'S ORGANIZ ATION 12/19/2023 [facility] DATE CREATED AUTHOR AUTHOR'S ORGANIZ ATION 12/25/2023 [facility] DATE CREATED AUTHOR AUTHOR'S ORGANIZ ATION 04/04/2024 [facility] DATE CREATED AUTHOR AUTHOR'S ORGANIZ ATION 06/05/2024 [facility] FOR RECORDS PERTAINING TO PATIENTS [...] BE BASED ON THE PRIMARY CLINICAL RECORDS. [employer] [facility]. provides no warranty or guarantee of the accuracy or completeness of information in this document.
[2024-06-05 10:14] LABS: Alanine Aminotransferase 17 U/L (14-59); Albumin Globulin Ratio 0.9; Albumin Level 3.4 g/dL (3.4-5.0); Alkaline Phosphatase 54 U/L (46-116); Aspartate Amino Transferase 21 U/L (15-37); Bilirubin Direct 0.1 mg/dL (0.0-0.2); Bilirubin Total 0.4 mg/dL (0.2-1.0); Chol HDL Ratio 2.3; Cholesterol 181 mg/dL (<=200); Globulin 3.6 g/dL; HDL Cholesterol 79 mg/dL (40-60); Triglycerides 151 mg/dL (<=150); VLDL CHOLESTEROL 30.2 mg/dL
== END 2024-06-05 08:55 | disposition home or self-care (01) ==
LOC: LAB 08:55
PROVIDERS: PCP Family Medicine; Visit Provider Internal Medicine Interventional Cardiology
DX: E78.5 Hyperlipidemia, unspecified (principal)
CPT/HCPCS: 36415; 80061; 80076

== ENCOUNTER 2024-08-13 10:56 | Outpatient (OUT) | payer MEDICARE, OTHER, SELFPAY ==
[2024-08-13 11:48] LABS: Anion Gap 12.1; BUN Creatinine Ratio 21.5; Calcium 9.7 mg/dL (8.5-10.1); Carbon Dioxide 30.3 mmol/L (21.0-32.0); Chloride 105 mmol/L (98-107); Estimated GFR (African America >60 (>=60 mL/min/1.73m^2); Estimated GFR (Non-African Ame 58 (>=60 mL/min/1.73m^2); Glucose 147 mg/dL (74-106); Potassium 4.4 mmol/L (3.5-5.1); Sodium 143 mmol/L (136-145)
== END 2024-08-13 10:57 | disposition home or self-care (01) ==
LOC: LAB 10:58
PROVIDERS: PCP Family Medicine; Visit Provider Internal Medicine Interventional Cardiology
DX: I11.9 Hypertensive heart disease without heart failure (principal)
CPT/HCPCS: 36415; 80048

== ENCOUNTER 2024-08-28 08:47 | Outpatient (OUT) | payer MEDICARE, OTHER, SELFPAY ==
[2024-08-28 09:10] LABS: Basophils Percent Auto 0.7 % (0.2-2.0); Eosinophils Absolute Auto 0.3 10^3/uL (0.0-0.7); Eosinophils Percent Auto 5.2 % (0.9-7.0); Hematocrit 41.6 % (36.0-48.0); Hemoglobin 13.9 g/dL (12.0-16.0); Immature Granulocytes Abs Auto 0.01 10^3/uL (0.00-0.03); Immature Granulocytes Pct Auto 0.2 % (0.0-0.5); Lymphocytes Absolute Auto 1.7 10^3/uL (1.2-3.8); Lymphocytes Percent Auto 28.8 % (20.5-60.0); Mean Corpuscular HGB Conc 33.4 g/dL (29.9-35.2); Mean Corpuscular Hemoglobin 30.7 pg (26.7-34.0); Mean Corpuscular Volume 91.8 fL (81.0-99.0); Monocytes Absolute Auto 0.4 10^3/uL (0.3-0.8); Neutrophils Absolute Auto 3.5 10^3/uL (1.4-6.5); Neutrophils Percent Auto 58.1 % (43.0-75.0); Platelet Count 256 10^3/uL (150-450); Red Blood Count 4.53 10^6/uL (4.20-5.40); Red Cell Distribution Width 13.2 % (11.0-15.0)
[2024-08-28 09:19] LABS: Ammonia 19 umol/L (11-32)
[2024-08-28 10:03] LABS: Alanine Aminotransferase 17 U/L (14-59); Albumin Globulin Ratio 0.9; Albumin Level 3.4 g/dL (3.4-5.0); Alkaline Phosphatase 59 U/L (46-116); Anion Gap 10.8; Aspartate Amino Transferase 15 U/L (15-37); BUN Creatinine Ratio 26.7; Bilirubin Total 0.5 mg/dL (0.2-1.0); Calcium 9.5 mg/dL (8.5-10.1); Chloride 104 mmol/L (98-107); Chol HDL Ratio 2.2; Cholesterol 164 mg/dL (<=200); Estimated GFR (African America >60 (>=60 mL/min/1.73m^2); Estimated GFR (Non-African Ame >60 (>=60 mL/min/1.73m^2); Free T3 2.23 pg/mL (2.18-3.98); Globulin 3.6 g/dL; Glucose 116 mg/dL (74-106); HDL Cholesterol 76 mg/dL (40-60); Potassium 4.8 mmol/L (3.5-5.1); Sodium 141 mmol/L (136-145); Triglycerides 127 mg/dL (<=150); VLDL CHOLESTEROL 25.4 mg/dL
[2024-08-28 10:30] LABS: Estimated Average Glucose 140 mg/dL; Glycohemoglobin A1C 6.5 % (4.5-6.2)
== END 2024-08-28 08:48 | disposition home or self-care (01) ==
PROVIDERS: PCP Family Medicine; Visit Provider Family Medicine
DX: R26.89 Other abnormalities of gait and mobility (principal); E11.9 Type 2 diabetes mellitus without complications; I10 Essential (primary) hypertension; R41.0 Disorientation, unspecified; E86.0 Dehydration; E55.9 Vitamin D deficiency, unspecified
CPT/HCPCS: 36415; 80053; 80061; 82140; 82306; 83036; 84436; 84443; 84481; 85025

== ENCOUNTER 2024-09-04 09:26 | Outpatient (OUT) | payer MEDICARE, OTHER, SELFPAY ==
--- NOTE | 2024-09-04 09:28 | MR_ITS ---
The [address] [address] Patient Name: GREG TODD MRN: [id number] date: 1940 Sex: F Assigned Patient Location: MRI Current Patient Location: MRI Accession/Order Number: [id number] Exam Date: 09/04/2024 14:59 Report Date: 09/04/2024 15:03 At the request of: JENNIFER KC MD Procedure: MR head/brain wo con MR head/brain wo con 09/04/2024 10:28 AM SIGN AND SYMPTOMS: ^Confusion PROTOCOL: Multiplanar multisequence MR images of the brain were obtained without IV contrast COMPARISON: 12/13/2023 FINDINGS: Extra axial spaces: There is similar diffuse age-related cortical atrophy. 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 Ventricular system: Within normal limits. Basal cisterns: Within normal limits and not effaced. Cerebral parenchyma: T2 and FLAIR hyperintense foci are noted in the periventricular and subcortical white matter consistent with chronic vascular ischemic change. Midline shift: None.. Cerebellum: Within normal limits. Brainstem: Within normal limits. OTHER: Calvarium: Normal marrow signal. Vascular system: Satisfactory flow voids within the anterior and posterior circulation. Visualized Paranasal sinuses: There is mild polypoid mucosal thickening in the right maxillary sinus. Visualized Orbits: Within normal limits. Visualized upper cervical spine: Within normal limits. Sella and skull base: Within normal limits. MR/MR head/brain wo con IMPRESSION: No acute intracranial pathology. 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 No evidence of acute or subacute ischemia. Impression dictated by: Yogesh Zapien M.D. 09/04/2024 3:03 PM Dictation Location: [place] [address] Electronically authenticated by: [id number] Date: 09/04/2024 15:03
--- OUTSIDE RECORDS SUMMARY | 2024-09-04 09:30 | XMS_ITS | CCD ---
Author Organization [facility] Care Team Providers Care Track [employer] Supervisor Name Role Phone Jennifer Kc Primary Care Physician DE ., DR RODRIGUEZ Consulting Unavailable DEVINE ., DR PACK Attending Unavailable DEVINE ., DR PACK Admitting Unavailable HOY ., DR RODRIGUEZ Primary Care Unavailable GROESBECK, DR SHMEAR Granados Consulting Unavailable HOY ., DR RODRIGUEZ [...] HOY ., DR RODRIGUEZ Primary Care Unavailable SHAWN BRANCH Attending Unavailable NO PCP, NO PCP Primary Care Unavailable AL-JUBOURI, WARNER A Admitting Unavailabl e [facility], [facility] Consulting Unavailable JHONNY JACKSON Consulting Unavailable DESHAWN PIRES Referring Unavailable NO PCP, NO PCP Primary Care Unavailable CHIO AYOUB Referring Unavailable NO PCP, NO PCP Primary Care Unavailable JODIE SOSA Referring Unavailable NO PCP, NO PCP Primary Care Unavailable CHIO AYOUB Referring Unavailable NO PCP, NO PCP Primary Care Unavailable ZANE, RABBIA L Referring Unavailable NO PCP, NO PCP Primary Care Unavailable CHIO AYOUB Referring Unavailable NO PCP, NO PCP Primary Care Unavailable AL-GARRET, WARNER A Referring Unavailabl e NO PCP, NO PCP Primary Care Unavailable Ruiz DEVINE Attending Unavailable No Pcp, No Pcp Primary Care Provider Unavailabl e ELTAHAWY, EHAB Attending Unavailable ELTAHAWAgustin EHAB Attending Unavailable Allergies Allergy Classification Reported Allergen(s) Allergy Type Date of Onset Reaction(s) Facility (3 sources) Penicillin; Translations: [penicillin] Drug Allergy Eruption of skin (disorder) [facility] [place] (4 sources) Penicillins; Translations: [PENICILLINS] Drug allergy (disorder) [facility] Repository (1 source) No Known Medication Allergies; Translations: [No Known Medication Allergies] Propensity to adverse reactions (disorder) [facility] Repository (1 source) Penicillins Propensity to adverse reactions to drug [facility] Medications Current Medications Medication Drug Class(es) Dates Sig (Normalized) Sig (Original) acetaminophen 325 mg / butalbital 50 mg / caffeine 40 mg oral tablet (3 sources) Barbiturate, Central Nervous System Stimulant, Methylxanthine Start: 12-20-2023 take 2 tablets by mouth every eight hours as needed for headache butalbital-aceta minophen-caff (FIORICET, ESGIC) 50-325-40 mg per tablet Take 2 tablets by mouth every 8 (eight) hours as needed for headaches. 30 tablet 12/20/2023 Active Start: 12-16-2023 End: 12-20-2023 take 2 tablets by mouth every six hours as needed for headache 2 tablet, oral, Every 6 hours PRN, headaches, Starting on Tue12/16/23 at 0612, Look-alike/sound-alike medication - verify indication for use. aspirin 81 mg delayed release oral tablet (4 sources) Platelet Aggregation Inhibitor, Nonsteroidal Anti-inflammatory Drug Start: 12-20-2023 End: 12-20-2023 take 2 tablets by mouth in the morning aspirin 81 mg Take 2 tablets (162 mg total) by mouth in the morning. Do not resume until 10 days following injury 12/24/23.. 12/20/2023 Active Start: 01-03-2019 aspirin 81 mg Chew Tab 162 mg = 2 tab(s), Chewed, Daily Start Date: 01/03/19 Status: Ordered clopidogrel 75 mg oral tablet (1 source) P2Y12 Platelet Inhibitor Start: 01-03-2019 take 1 tablet by mouth once daily Plavix 75 mg Tab 75 mg = 1 tab(s), Oral, Daily Start Date: 01/03/19 Status: Ordered docusate sodium 50 mg / sennosides, retirement 8.6 mg oral tablet (3 sources) Start: 12-14-2023 End: 12-20-2023 take 2 tablets by mouth once daily sennosides-docusat e sodium (SENOKOT-S) 8.6-50 mg Take 2 tablets by mouth nightly. 12/20/2023 Active gabapentin 300 mg oral capsule (4 sources) Anti-epileptic Agent Start: 01-03-2019 take 1 capsule by mouth in the morning gabapentin (NEURONTIN) 300 mg capsule Take 1 capsule (300 mg total) by mouth in the morning. 08/10/2023 latanoprost 0.05 mg/ml ophthalmic solution (1 source) Prostaglandin Analog Start: 01-03-2019 Xalatan 0.005% Soln-Opth 1 drop(s), OPTH, Once a day (at bedtime) Start Date: 01/03/19 Status: Ordered levETIRAcetam 500 mg oral tablet (3 sources) Start: 12-20-2023 End: 12-21-2023 take 1 tablet by mouth once levETIRAcetam (KEPPRA) 500 mg tablet Take 1 tablet (500 mg total) by mouth every 12 (twelve) hours for 1 day. 2 tablet 12/20/2023 12/21/2023 Active Start: 12-14-2023 End: 12-14-2023 1,000 mg, intravenous, at 40 0 mL/hr, Administer over 15 Minutes, Once, On Tue12/14/23 at 0555, For 1 dose, Look-alike/sound-alike medication - verify indication for use. nitroglycerin 0.4 mg sublingual tablet (1 source) Nitrate Vasodilator Start: 01-03-2019 NitroStat 0.4 mg Tab 0.4 mg = 1 tab(s), SubLingual, q5min Start Date: 01/03/19 Status: Ordered potassium bicarbonate 25 meq effervescent oral tablet (2 sources) take 1 tablet by mouth in the morning potassium bicarbonate (EFFER-K) 25 MEQ disintegrating tablet Take 1 tablet (25 mEq total) by mouth in the morning and 1 tablet (25 mEq total) before bedtime. Active ramipril 2.5 mg oral capsule (4 sources) Angiotensin Converting Enzyme Inhibitor Start: 01-03-2019 take 1 capsule by mouth once daily Altace 2.5 mg Cap 2.5 mg = 1 cap(s), Oral, Daily Start Date: 01/03/19 Status: Ordered simvastatin 20 mg oral tablet (4 sources) HMG-CoA Reductase Inhibitor Start: 01-03-2019 take [...] Drug Class(es) Dates Sig (Normalized) Sig (Original) acetaminophen 500 mg oral tablet (1 source) Start: 12-14-2023 End: 12-16-2023 take 1 tablet by mouth every six hours as needed for pain and pain and fever and headache and pain 1,000 mg, oral, Every 6 hours PRN, mild pain - pain scale 1-3, moderate pain - pain scale 4-6, temperature greater than 38 C, headaches, severe pain - pain scale 7-10, Starting on Tue12/14/23 at 0615, ED to IP Admission atorvastatin 10 mg oral tablet (1 source) HMG-CoA Reductase Inhibitor Start: 12-14-2023 End: 12-20-2023 take 10 mg by mouth once daily 10 mg, oral, Nightly, First dose on Tue12/14/23 at 2200, Look-alike/sound-a like medication - verify indication for use. calcium carbonate 1250 mg oral tablet (5 sources) Start: 12-14-2023 End: 12-20-2023 500 mg, oral, 2 times daily with meals, First dose on Tue12/14/23 at 1700, Ordered as elemental calcium. 500 mg elemental calcium = 1250 mg calcium carbonate Start: 01-03-2019 take 1 tablet by judy th twice daily calcium carbonate 500 mg +D 1 tab(s), Oral, BID Start Date: 01/03/19 Status: Ordered take 1 tablet by judy th in the morning, then take 1 tablet by mouth at mealtime calcium carbonate (OS-GEOVANNA) 600 mg elemental (1,500 mg) tablet Take 1 tablet (600 mg total) by mouth in the morning and 1 tablet (600 mg total) in the evening. Take with meals. Active cholecalciferol 0.125 mg oral capsule (3 sources) Vitamin D Start: 12-14-2023 End: 12-20-2023 take 5000 [IU] by mouth once daily 5,000 Units, oral, Daily, First dose on Tue12/14/23 at 1400 Start: 01-13-2023 take 1 capsule by [facility] in the morning cholecalciferol, vitamin D3, (VITAMIN D3) 5,000 units capsule Take 1 capsule (5,000 Units total) by mouth in the morning. 01/13/2023 Active docusate sodium 100 mg oral capsule (5 sources) Start: 01-03-2019 End: 12-20-2023 take 100 mg by mouth twice daily 100 mg, oral, 2 times daily, First dose on Tue12/14/23 at 1400, Look-alike/sound-alike medication - verify indication for use. Effer-K 25 mEq oral tablet, effervescent (1 source) Start: 09-16-2021 End: 09-11-2022 take 1 tablet by mouth twice daily Effer-K 25 mEq oral tablet, effervescent 25 mEq = 1 tab(s), Oral, BID, X 90 day(s), # 180 tab(s), Refills(s) 3, Pharmacy: [facility]/pharmacy #[id number], 161.3, cm, 04/21/21 14:11:00 EST, Height/Length Dosing, 81.8, kg, 04/21/21 14:11:00 EST, Weight Dosing Start Date: 09/16/21 Stop Date: 09/11/22 Status: Ordered 0.3 ml enoxaparin sodium 100 mg/ml prefilled syringe (2 sources) Low Molecular Weight Heparin Start: 12-17-2023 End: 12-20-2023 inject 30 mg by subcutaneous injection every twelve hours 30 mg, subcutaneous, Every 12 hours, First dose (after last modification) on Tue12/17/23 at 1800, Per Trauma protocol Look-alike/sound-alike medication - verify indication for use. Start: 12-16-2023 End: 12-17-2023 inject 40 mg by subcutaneous injection once daily 40 mg, subcutaneous, Daily, First dose on Tue12/16/23 at 0915, Look-alike/sound-alike medication - verify indication for use. 1 ml fentaNYL 0.05 mg/ml injection (1 source) Opioid Agonist Start: 12-14-2023 End: 12-14-2023 50 mcg, intravenous, Once, O n Tue12/14/23 at 2230, For 1 dose, For IVP, must be given slow IV Push over 1 to 2 minutes. Look-alike/sound-alike medication - verify indication for use. Start: 12-14-2023 End: 12-14-2023 50 mcg, intravenous, Once, O n Tue12/14/23 at 2230, For 1 dose, For IVP, must be given slow IV Push over 1 to 2 minutes. Look-alike/sound-alike medication - verify indication for use. glucagon (rdna) 1 mg injection (1 source) Antihypoglycemic Agent Start: 12-14-2023 End: 12-20-2023 1 mg, intramuscular, As needed, low blood sugar, blood glucose less than 70 mg/dL and unconscious or NPO without IV access., Starting on Tue12/14/23 at 1009, If conscious and not NPO, immediately follow with meal tray or high protein (7Grams) snack if tray not available. If NPO, initiate IV 5% Dextrose/Water at 100 mL/hr and contact prescriber for additional orders. If blood glucose is not greater than 70 mg/dL after initial treatment, repeat treatment. 150 ml glucose 50 mg/ml injection (3 sources) Start: 12-14-2023 End: 12-20-2023 15 g, oral, As needed, low blood sugar, blood glucose less than 70 mg/dL, Starting on Tue12/14/23 at 1009, If patient conscious and taking PO. If blood glucose is not greater than 70 mg/dL after initial treatment, repeat treatment. Start: 12-14-2023 End: 12-20-2023 25 mL, intravenous, As neede d, low blood sugar, blood glucose less than 70 mg/dL and unconscious or NPO with IV access, Starting on Tue12/14/23 at 1009, Push over 1-3 minutes STAT. If conscious and not NPO, immediately follow with meal tray or high protein (7 grams) snack if tray not available. If NPO, initiate 5% dextrose in water at 100 mL/hr and contact prescriber for additional orders. If blood glucose is not greater than 70 mg/dL after initial treatment, repeat treatment. VESICANT (RED) Warning: HYPERTONIC solution. Start: 12-14-2023 End: 12-20-2023 take 70 mg intravenously every hour 100 mL/hr, intravenous, Continuous PRN, blood glucose less than 70 mg/dL, Starting on Tue12/14/23 at 1009, Use immediately following dextrose 50% or glucagon treatment for patients who are unconscious or NPO. Contact prescriber for additional orders. If blood glucose is not greater than 70 mg/dL after initial treatment, repeat treatment. 250 ml glucose 50 mg/ml / sodium chloride 4.5 mg/ml injection (1 source) Start: 12-15-2023 End: 12-15-2023 take 50 mL intravenously every hour 50 mL/hr, intravenous, Continuous, Starting on Tue12/15/23 at 1400 1 ml hydrALAZINE hydrochloride 20 mg/ml injection (2 sources) Arteriolar Vasodilator Start: 12-14-2023 End: 12-20-2023 take 10 mg intravenously every six hours as needed 10 mg, intravenous, Every 6 hours PRN, high blood pressure, Starting on Tue12/14/23 at 0615, For systolic blood pressure greater than 140 mmHg Look-alike/sound- alike medication - verify indication for use. Administer IV doses as a slow IV push; maximum rate: 5 mg/minute. Start: 12-14-2023 End: 12-14-2023 10 mg, intravenous, Once, On Tue12/14/23 at 0540, For 1 dose, For systolic blood pressure greater than 140 mmHg Look-alike/sound-alike medication - verify indication for use. Administer IV doses as a slow IV push; maximum rate: 5 mg/minute. 0.5 ml HYDROmorphone hydrochloride 1 mg/ml prefilled syringe (1 source) Opioid Agonist Start: 12-16-2023 End: 12-16-2023 take 0.5 mg intravenously once 0.5 mg, intravenous, Once, On Tue12/16/23 at 0345, For 1 dose, If IV push, administer over over 2 to 3 minutes. Look-alike/sound-alike medication - verify indication for use. 3 ml insulin lispro 100 unt/ml pen injector (2 sources) Insulin Analog Start: 12-14-2023 End: 12-20-2023 inject 400 mg by subcutaneous injection once daily, then inject 2 [IU] by subcutaneous injection 15 minutes after mealtime 2-8 Units, subcutaneous, Nightly, First dose on Tue12/14/23 at 2200, Bedtime hyperglycemia dosing. For blood glucose 201-250 mg/dL, give 2 units. For blood glucose 251-300 mg/dL, give 4 units. For blood glucose 301-350 mg/dL, give 6 units. For blood glucose 351-400 mg/dL, give 8 units. Give even if NPO or meals skipped. Do NOT give more often then every 4 hours when NPO. Notify prescriber if blood glucose greater than 400 mg/dL. Look-alike/sound-alike medication - verify indication for use. Prime with 2 units of insulin prior to administration. Prandial/supplemental Insulin. Pre-filled pens stable 28 days at room temperature. Insulin lispro should be administered within 15 minutes before or immediately after a meal. Start: 12-14-2023 End: 12-20-2023 inject 400 mg by subcutaneous injection three times daily at mealtime, then inject 2 [IU] by subcutaneous injection 15 minutes after mealtime 2-10 Units, subcutaneous, 3 times daily with meals, First dose on Tue12/14/23 at 1200, Daytime hyperglycemia dosing. For blood glucose 151-200 mg/dL, give 2 units. For blood glucose 201-250 mg/dL, give 4 units. For blood glucose 251-300 mg/dL, give 6 units. For blood glucose 301-350 mg/dL, give 8 units. For blood glucose 351-400 mg/dL, give 10 units. Give even if NPO or meals skipped. Do NOT give more often then every 4 hours when NPO. Notify prescriber if blood glucose greater than 400 mg/dL. Look-alike/sound-alike medication - verify indication for use. Prime with 2 units of insulin prior to administration. Prandial/supplemental Insulin. Pre-filled pens stable 28 days at room temperature. Insulin lispro should be administered within 15 minutes before or immediately after a meal. K-Effervescent 25 mEq oral tablet, effervescent (1 source) Start: 01-30-2024 take 1 tablet by mouth twice daily K-Effervescent 25 mEq oral tablet, effervescent 25 mEq = 1 tab(s), Oral, BID, # 180 tab(s), Refills(s) 3, Pharmacy: [facility]/pharmacy #[id number], 161.3, cm, 04/02/22 8:19:00 EST, Height/Length Dosing, 85, kg, 04/02/22 8:19:00 EST, Weight Dosing Start Date: 01/30/24 Status: Ordered labetalol hydrochloride 5 mg/ml injectable solution (1 source) beta-Adrenergi c Ancelmo Start: 12-14-2023 End: 12-20-2023 take 10 mg intravenously every four hours as needed 10 mg, intravenous, Every 4 hours PRN, high blood pressure, Starting on Tue12/14/23 at 0615, For systolic blood pressure greater than 140 mmHg Hold for HR less then 60 Look-alike/sound-al vannesa medication - verify indication for use. levETIRAcetam (KEPPRA) IVPB 500 mg/100 mL in iso-osmotic sodium chloride (5 mg/mL premix) (1 source) Start: 12-14-2023 End: 12-20-2023 levETIRAcetam (KEPPRA) IVPB 500 mg/100 mL in iso-osmotic sodium chloride (5 mg/mL premix) metFORMIN hydrochloride 500 mg oral tablet (8 sources) Biguanide Start: 12-16-2023 End: 12-20-2023 500 mg, oral, Nightly, First dose on Tue12/16/23 at 2200, Hold dose and notify prescriber if blood glucose is less than 100 mg/dL or patient status has changed to NPO. Look-alike/sound-al vannesa medication - verify indication for use. May alter blood glucose or insulin requirements. Metformin and use of contrast media will be reviewed according to Metformin and Metformin Containing Medications and Contrast Media policy. Start: 12-16-2023 End: 12-20-2023 take 100 mg by mouth once daily at breakfast 1,000 mg, oral, Daily with breakfast, First dose on Tue12/16/23 at 0800, Hold dose and notify prescriber if blood glucose is less than 100 mg/dL or patient status has changed to NPO. Look-alike/sound-alike medication - verify indication for use. May alter blood glucose or insulin requirements. Metformin and use of contrast media will be reviewed according to Metformin and Metformin Containing Medications and Contrast Media policy. Start: 01-03-2019 take 1 tablet by judy th twice daily Glucophage 500 mg Tab 500 mg = 1 tab(s), Oral, BID Start Date: 01/03/19 Status: Ordered take 2 tablets by mo [facility] once daily at breakfast metFORMIN (GLUCOPHAGE) 500 mg tablet Take 2 tablets (1,000 mg total) by mouth daily with breakfast. Active 24 hr metoprolol succinate 25 mg extended release oral tablet (5 sources) beta-Adrenergic Ancelmo Start: 12-14-2023 End: 12-20-2023 take 50 mg by mouth once daily 50 mg, oral, Nightly, First dose on Tue12/14/23 at 2200, Look-alike/sound-alike medication - verify indication for use. Do not crush or chew. Start: 06-07-2023 take 1 tablet by judy th once daily metoprolol succinate XL (TOPROL XL) 50 mg 24 hr tablet Take 1 tablet (50 mg total) by mouth nightly. 06/07/2023 Active Start: 01-03-2019 take 1 tablet by judy th once daily Metoprolol succinate 50 mg ER Tablet 50 mg, Oral, Daily Start Date: 01/03/19 Status: Ordered 2 ml ondansetron 2 mg/ml injection (1 source) Serotonin-3 Receptor Antagonist Start: 12-14-2023 End: 12-20-2023 take 4 mg intravenously every six hours as needed for nausea 4 mg, intravenous, Every 6 hours PRN, nausea, Starting on Tue12/14/23 at 0615, Administer over 2-5 minutes. oxyCODONE (2 sources) Opioid Agonist Start: 12-16-2023 End: 12-20-2023 take 1 tablet by mouth every four hours as needed for pain oxyCODONE (ROXICODONE) immediate release tablet 5 mg Start: 12-15-2023 End: 12-15-2023 5 mg, oral, Once, On 11/17 at 2100, For 1 dose, Look-alike/sound-alike medication - verify indication for use. Immediate release. perflutren lipid microspheres (DEFINITY) dilution injection 1.43 mg/10 mL (1 source) Start: 12-15-2023 End: 12-15-2023 2 mL, intravenous, As needed, contrast, Starting on Ermelinda 12/15/23 at 1643, For 6 hours, Additional Imaging Orders, Dilute 1.3 mL of Definity with 8.7mL of 0.9% NaCl in 10 mL syringe Administer 2 mL perflutren (Definity) contrast if 2 contiguous segments of the LV are not well visualized. May repeat 2 mL dose until LV visualization is accomplished. Procedure total dose not to exceed 10 mL. 1000 ml sodium chloride 9 mg/ml injection (4 sources) Start: 12-14-2023 End: 12-16-2023 take 75 mL intravenously every hour 75 mL/hr, intravenous, Continuous, Starting on Tue12/14/23 at 1015 Start: 12-14-2023 End: 12-20-2023 3 mL, intravenous, Every 12 hours scheduled, First dose on Tue12/14/23 at 0900 Start: 12-14-2023 End: 12-20-2023 take 10 mL intravenously every hour as needed 10 mL/hr, intravenous, Continuous PRN, to maintain patency of lines, Starting on Tue12/14/23 at 0730 Start: 12-14-2023 End: 12-20-2023 3 mL, intravenous, As needed , line care, before and after each intermittent use, Starting on Tue12/14/23 at 0615 Problems Active Problems Problem Classification Problem Date Documented Da te Episodic/Chronic Acute cerebrovascular disease (4 sources) Nontraumatic intracerebral hemorrhage, unspecified; Translations: [Cerebral hemorrhage] Onset: 12-14-2023 12-14-2023 Chronic Calculus of urinary tract (12 sources) Kidney stone; Translations: [Calculus of kidney] Onset: 03-22-2022 Episodic Coronary atherosclerosis and other heart disease (5 sources) Coronary arteriosclerosis; Translations: [Atherosclerotic heart disease of [place] coronary artery without angina pectoris] Onset: 01-22-2022 [...] Hemorrhoids (2 sources) Internal hemorrhoids 01-03-2019 Episodic Hypertension with complications and secondary hypertension (2 sources) Hypertensive heart disease without heart failure; Translations: [Hypertensive heart disease without heart failure] Onset: 07-25-2024 Chronic Nonmalignant breast conditions (2 sources) Fibrocystic disease [...] baby asa daily. Dr Horton accepts to [facility]TH ER Onset: 12-14-2023 Unclassified (1 source) Other [...] Value Interpretation Reference Range Facility Office Visiton 07-25-2024 Follow-up visit [id number] Kelin Rosenberg 1940 F Date Provider Department Center 07/25/2024 Melba-GARIMA GRIGGS C[facility] Family History Problem Relation Age of Onset Diabetes Mother Coronary artery disease Father Family Status - Relation Status Age at Mother Father Level of Service:25130 NC OFFICE/OUTPATIENT ESTABLISHED MOD MDM 30 MIN Normal [facility] Office Visiton 06-04-2024 Follow-up visit [id number] Kelin Rosenberg 1940 F Date Provider Department Center 06/04/2024 Melba-JACINTAALINEGARIMA WELCH CARD [facility] Family History Problem Relation Age of Onset Diabetes Mother Coronary artery disease Father Family Status - Relation Status Age at Mother Father Level of Service:44058 NC OFFICE/OUTPATIENT ESTABLISHED MOD MDM 30 MIN Normal [facility] Ambulatory Visit Summaryon 1 06-03-2023 Ambulatory Visit Summary Ambulatory Visi t Summary KELIN ROSENBERG :1940 Visit Date:04/02/2024 Ambulatory Visit Instructions Your Diagnosis Kidney stone Your Care Team Attending Physician - SYBIL RODRIGUEZ, Ruiz Rangel Primary Care Physician - Jennifer Kc MD This Is Your Medications List potassium [...] Where: [facility] [address], [place] [address]- Medications What How Much When Instructions Unchanged [...] ? 8 oz (237 mL) of milk, calcium-fortifiedn on-dairy milk, and calcium-fortifiedf ruit juice. Calcium-fortified means that calcium has been [...] calcium a d (more content not included)... [facility] Reminderson 04-02-2024 Reminders Reminders --- From: Selma Waite To: [facility] - Administrative; Sent: 04/02/2024 11:19:40 EST Show up: 07/17/2025 11:19:00 EDT Subject: 2 yr F/U Due Date/Time: 04/01/2026 11:19:00 EST Reminder/Recall Patient needs scheduled for a 2 yr f/u with a KUB Normal [facility] Urology Office/Clinic Noteon 04-02-2024 Urology Office/Clinic Note [...] dripping: denies Wearing pads/ Depends: denies Urge incontinence:denie s Stress incontinence: denies Incontinence without Sensory Awareness: denies Abdominal pain: denies Flank pain: denies Sexual complaints: denies History of Present Illness Tests reviewed: UA, KUB I have reviewed the previous health record information and history for this patient from Dr. Devine. I have reviewed and verified the staff [...] [facility] [address], [place] [address]- Additional Instructions: 2 yr with KUB Patient Education Dietary Guidelines to Help Prevent Kidney Stones I, Gracia Nunn, personally scribed for Dr. Devine on 04/02/2024 11:09:20. . Documentation recorded by the scribe, Gracia Nunn, accurately reflects the services(s) I performed and decisions made by me. Authenticated by Dr. Devine on 04/02/2024 11:13:27. Problem List/Past Medical History [...] 09/25/2020 Record (more content not included)... Normal [facility] Comment on above: Result Comment: Elec tronically Signed By: Ruiz DEVINE MD R\.br\Date and Time Signed: 04/02/24 11:13 EST\.br\Electronically Co-Signed By: Gracia Nunn\.br\Date and Time Co-Signed: 04/02/24 11:12 EST BASIC METABOLIC PANLon 12-19 Anion gap [Moles/Vol] 7 mmol/L Normal 5-15 [facility] Comment on above: Performed By: #### C MP, CBCA, 1798-8, 16825-3, 5643-2, 3040-3, PINR, 11941-4 #### [facility] ([id number]) [address], [address] [place] [address] Calcium [Mass/Vol] 9.3 mg/dL Normal 8.5-10.5 [facility] Comment on above: Performed By: #### C MP, CBCA, 1798-8, 03563-5, 5643-2, 3040-3, PINR, 06944-9 #### [facility] ([id number]) [address], [address] [place] [address] Chloride [Moles/Vol] 104 mmol/L Normal 98-109 [facility] Comment on above: Performed By: #### C MP, CBCA, 1798-8, 99651-7, 5643-2, 3040-3, PINR, 88476-1 #### [facility] ([id number]) [address], [address] [place] [address] CO2 [Moles/Vol] 26 mmol/L Normal 22-32 [facility] Comment on above: Performed By: #### C MP, CBCA, 1798-8, 83695-0, 5643-2, 3040-3, PINR, 22038-9 #### [facility] HOSP[facility] ([id number]) [address], [address] [place] [address] Creatinine [Mass/Vol] 0.59 mg/dL Normal 0.40-1.00 [facility] Comment on above: Result Comment: METH OD TRACEABLE TO IDMS STANDARD Performed By: #### C MP, CBCA, 1798-8, 22315-2, 5643-2, 3040-3, PINR, 98085-3 #### [facility] ([id number]) [address], [address] [place] [address] GFR/1.73 sq M.predicted among non-blacks MDRD (S/P/Bld) [Vol rate/Area] 89 mL/min/{1.73_m2} Normal >59 [facility] Comment on above: Result Comment: Reported eGFR is based on the CKD-EPI 2020 equation that does not use a race coefficient. Performed By: #### C MP, CBCA, 1798-8, 86704-3, 5643-2, 3040-3, PINR, 80300-7 #### [facility] ([id number]) [address], [address] [place] [address] Glucose [Mass/Vol] 125 mg/dL High 65-99 [facility] Comment on above: Performed By: #### C MP, CBCA, 1798-8, 61994-8, 5643-2, 3040-3, PINR, 50080-0 #### [facility] ([id number]) [address], [address] [address] Potassium [Moles/Vol] 3.9 mmol/L Normal 3.5-5.0 [facility] Comment on above: Performed By: #### C MP, CBCA, 1798-8, 32210-5, 5643-2, 3040-3, PINR, 09668-7 #### [facility] ([id number]) [address], [address] [address] Sodium [Moles/Vol] 137 mmol/L Normal 134-146 [facility] Comment on above: Performed By: #### C MP, CBCA, 1798-8, 68366-7, 5643-2, 3040-3, PINR, 18616-5 #### [facility] ([id number]) [address], [address] [address] Urea nitrogen [Mass/Vol] 20 mg/dL Normal 5-27 [facility] Comment on above: Performed By: #### C MP, CBCA, 1798-8, 56286-7, 5643-2, 3040-3, PINR, 69902-2 #### [facility] ([id number]) [address], [address] [address] Basic Metabolic Panelon 09-0 Anion gap [Moles/Vol] 7 mmol/L 5 - 15 mmol/L [facility] Calcium [Mass/Vol] 9.3 mg/dL 8.5 - 10. 5 mg/dL [facility] Chloride [Moles/Vol] 104 mmol/L 98 - 10 9 mmol/L [facility] CO2 [Moles/Vol] 26 mmol/L 22 - 32 mmol/L [facility] Creatinine [Mass/Vol] 0.59 mg/dL 0.40 - 1.00 mg/dL [facility] Comment on above: METHOD TRACEABLE TO IDMS STANDARD eGFR (CKD-EPI)non-race dependent 89 - PINF [facility] Comment on above: Reported eGFR is based on the CKD-EPI 2020 equation that does not use a race coefficient. Glucose [Mass/Vol] 125 mg/dL High 65 - 99 mg/dL [facility] Interpretation and review of laboratory results Abnormal [facility] Potassium [Moles/Vol] 3.9 mmol/L 3.5 - 5.0 mmol/L [facility] Sodium [Moles/Vol] 137 mmol/L 134 - 146 mmol/L [facility] Urea nitrogen [Mass/Vol] 20 mg/dL 5 - 27 mg/dL [facility] CBC AND AUTO DIFFon 12-20-19 24 ABSOLUTE BASOPHIL 0.0 X10E9/L Normal 0.0-0.2 [facility] Comment on above: Performed By: #### C MP, CBCA, 8-8, 34371-1, 5643-2, 3040-3, PINR, 48396-7 #### [facility] ([id number]) [address], [address] [place] [address] ABSOLUTE NEUTROPHIL 4.6 X10E9/L Normal 1.5-6.6 [facility] Comment on above: Performed By: #### C MP, CBCA, 1797-8, 20544-5, 5643-2, 3040-3, PINR, 84761-2 #### [facility] ([id number]) [address], [address] [place] [address] Basophils/100 WBC (Bld) 0.3 % Normal [facility] Comment on above: Performed By: #### C MP, CBCA, 1797-8, 67968-2, 5643-2, 3040-3, PINR, 95094-2 #### [facility] ([id number]) [address], [address] [place] [address] Eosinophils (Bld) [#/Vol] 0.2 10*3/uL Normal 0.0-0.4 [facility] Comment on above: Performed By: #### C MP, CBCA, 1797-8, 56612-7, 5643-2, 3040-3, PINR, 86455-3 #### [facility] ([id number]) [address] [address] [place] [address] Eosinophils/100 WBC (Bld) 3.0 % Normal [facility] Comment on above: Performed By: #### C MP, CBCA, 1798-8, 80778-4, 5643-2, 3040-3, PINR, 34410-2 #### [facility] ([id number]) [address] [address] [place] [address] Erythrocyte distribution width (RBC) [Ratio] 14.7 % Normal 11.5-15.0 [facility] Comment on above: Performed By: #### C MP, CBCA, 1798-8, 78069-1, 5643-2, 3040-3, PINR, 99529-4 #### [facility] ([id number]) [address] [address] Hematocrit (Bld) [Volume fraction] 36.5 % Normal 35-47 [facility] Comment on above: Performed By: #### C MP, CBCA, 8-8, 20628-5, 5643-2, 3040-3, PINR, 46247-2 #### [facility] ([id number]) [address] [address] [place] [address] Hemoglobin (Bld) [Mass/Vol] 12.7 g/dL Normal 11.7-15. 5 [facility] Comment on above: Performed By: #### C MP, CBCA, 1798-8, 59722-1, 5643-2, 3040-3, PINR, 24147-2 #### [facility] ([id number]) [address] [address] Lymphocytes (Bld) [#/Vol] 1.6 10*3/uL Normal 1.0-3.5 [facility] Comment on above: Performed By: #### C MP, CBCA, 1798-8, 04719-7, 5643-2, 3040-3, PINR, 82389-3 #### [facility] ([id number]) [address], [address] [place] [address] Lymphocytes/100 WBC (Bld) 22.4 % Normal [facility] Comment on above: Performed By: #### C MP, CBCA, 1798-8, 66082-1, 5643-2, 3040-3, PINR, 82328-6 #### [facility] ([id number]) [address], [address] [place] [address] MCH (RBC) [Entitic mass] 31.3 pg Normal 27-34 [facility] Comment on above: Performed By: #### C MP, CBCA, 1798-8, 63818-6, 5643-2, 3040-3, PINR, 07741-2 #### [facility] ([id number]) [address], [address] [place] [address] MCHC (RBC) [Mass/Vol] 34.8 g/dL Normal 32-36 [facility] Comment on above: Performed By: #### C MP, CBCA, 1798-8, 67219-1, 5643-2, 3040-3, PINR, 64898-0 #### [facility] ([id number]) [address], [address] [place] [address] MCV (RBC) [Entitic vol] 90 fL Normal 80-100 [facility] Comment on above: Performed By: #### C MP, CBCA, 1798-8, 98452-3, 5643-2, 3040-3, PINR, 12307-9 #### [facility] ([id number]) [address], [address] [place] [address] Monocytes (Bld) [#/Vol] 0.6 10*3/uL Normal 0-0.9 [facility] Comment on above: Performed By: #### C MP, CBCA, 1798-8, 21694-1, 5643-2, 3040-3, PINR, 65958-0 #### [facility] ([id number]) [address], [address] [place] [address] Monocytes/100 WBC (Bld) 8.5 % Normal [facility] Comment on above: Performed By: #### C MP, CBCA, 1798-8, 21601-0, 5643-2, 3040-3, PINR, 56865-9 #### [facility] ([id number]) [address], [facility] [address] [place] [address] Neutrophils/100 WBC (Bld) 65.8 % Normal [facility] Comment on above: Performed By: #### C MP, CBCA, 8-8, 50647-7, 5643-2, 3040-3, PINR, 71362-5 #### [facility] ([id number]) [address], [address] [place] [address] Platelet mean volume (Bld) [Entitic vol] 7.1 fL Normal 7-12 [facility] Comment on above: Performed By: #### C MP, CBCA, 1798-8, 55337-8, 5643-2, 3040-3, PINR, 42377-6 #### [facility] ([id number]) [address], [address] [place] [address] Platelets (Bld) [#/Vol] 264 10*3/uL Normal 150-450 [facility] Comment on above: Performed By: #### C MP, CBCA, 1798-8, 86018-2, 5643-2, 3040-3, PINR, 63916-1 #### [facility] ([id number]) [address], [address] [place] [address] RBC COUNT 4.05 X10E12/L Normal 3.80-5.20 [facility] Comment on above: Performed By: #### C MP, CBCA, 1798-8, 85277-0, 5643-2, 3040-3, PINR, 77328-8 #### [facility] ([id number]) [address], [address] [place] [address] WBC (Bld) [#/Vol] 7.0 10*3/uL Normal 4.0-11.0 [facility] Comment on above: Performed By: #### C MP, CBCA, 1798-8, 89312-6, 5643-2, 3040-3, PINR, 71371-8 #### [facility] ([id number]) [address] [place] [address] CBC auto differentialon 09-0 Basophils (Bld) [#/Vol] 0.0 10*3/uL [facility] Basophils/100 WBC (Bld) 0.3 % [facility] Eosinophils (Bld) [#/Vol] 0.2 10*3/uL [facility] Eosinophils/100 WBC (Bld) 3.0 % [facility] Erythrocyte distribution width (RBC) [Ratio] 14.7 % 11.5 - 15.0 % [facility] Hematocrit (Bld) [Volume fraction] 36.5 % 35 - 47 % [facility] Hemoglobin (Bld) [Mass/Vol] 12.7 g/dL 11.7 - 15.5 g/dL [facility] Lymphocytes (Bld) [#/Vol] 1.6 10*3/uL [facility] Lymphocytes/100 WBC (Bld) 22.4 % [facility] MCH (RBC) [Entitic mass] 31.3 pg 27 - 34 pg [facility] MCHC (RBC) [Mass/Vol] 34.8 g/dL 32 - 3 6 g/dL [facility] MCV (RBC) [Entitic vol] 90 fL 80 - 100 fL [facility] Monocytes (Bld) [#/Vol] 0.6 10*3/uL [facility] Monocytes/100 WBC (Bld) 8.5 % [facility] Neutrophils (Bld) [#/Vol] 4.6 10*3/uL [facility] Neutrophils/100 WBC (Bld) 65.8 % [facility] Platelet mean volume (Bld) [Entitic vol] 7.1 fL 7 - 12 fL [facility] Platelets (Bld) [#/Vol] 264 10*3/uL [facility] RBC (Bld) [#/Vol] 4.05 10*6/uL [facility] WBC corrected for nucl RBC Auto (Bld) [#/Vol] 7.0 [facility] Glucose Glucometer (BldC) [M ass/Vol]on 12-20-2023 Glucose [Mass/Vol] 130 mg/dL High 65 - 99 mg/dL [facility] Interpretation and review of laboratory results Abnormal [facility] Glucose [Mass/Vol] 130 mg/dL High 65-99 [facility] Glucose [Mass/Vol] 136 mg/dL High 65 - 99 mg/dL [facility] Interpretation and review of laboratory results Abnormal [facility] Glucose [Mass/Vol] 136 mg/dL High 65-99 [facility] BASIC METABOLIC PANLon 12-18 Anion gap [Moles/Vol] 10 mmol/L Normal 5-15 [facility] Comment on above: Performed By: #### C MP, CBCA, 1798-8, 70165-2, 5643-2, 3040-3, PINR, 04205-9 #### [facility] ([id number]) [address] [place] [address] Calcium [Mass/Vol] 9.3 mg/dL Normal 8.5-10.5 [facility] Comment on above: Performed By: #### C MP, CBCA, 1798-8, 90896-4, 5643-2, 3040-3, PINR, 89518-2 #### [facility] ([id number]) [address], [address] [place] [address] Chloride [Moles/Vol] 104 mmol/L Normal 98-109 [facility] Comment on above: Performed By: #### C MP, CBCA, 1798-8, 72706-8, 5643-2, 3040-3, PINR, 45745-1 #### [facility] ([id number]) [address], [address] [place] [address] CO2 [Moles/Vol] 25 mmol/L Normal 22-32 [facility] Comment on above: Performed By: #### C MP, CBCA, 1798-8, 60306-1, 5643-2, 3040-3, PINR, 81568-3 #### [facility] ([id number]) [address], [address] [place] [address] Creatinine [Mass/Vol] 0.58 mg/dL Normal 0.40-1.00 [facility] Comment on above: Result Comment: METH OD TRACEABLE TO IDMS STANDARD Performed By: #### C MP, CBCA, 8-8, 40513-3, 5643-2, 3040-3, PINR, 18538-4 #### [facility] ([id number]) [address], [address] [place] [address] GFR/1.73 sq M.predicted among non-blacks MDRD (S/P/Bld) [Vol rate/Area] 90 mL/min/{1.73_m2} Normal >59 [facility] Comment on above: Result Comment: Reported eGFR is based on the CKD-EPI 2020 equation that does not use a race coefficient. Performed By: #### C MP, CBCA, 1798-8, 88656-7, 5643-2, 3040-3, PINR, 07687-2 #### [facility] ([id number]) [address], [address] [place] [address] Glucose [Mass/Vol] 105 mg/dL High 65-99 [facility] Comment on above: Performed By: #### C MP, CBCA, 1798-8, 43086-9, 5643-2, 3040-3, PINR, 06738-1 #### [facility] ([id number]) [address], [address] [place] [address] Potassium [Moles/Vol] 4.0 mmol/L Normal 3.5-5.0 [facility] Comment on above: Result Comment: SPEC IMEN HEMOLYZED, RESULTS INCREASED MODERATELY HEMOLYZED Performed By: #### C MP, CBCA, 1798-8, 28830-8, 5643-2, 3040-3, PINR, 00401-0 #### [facility] ([id number]) [address], [address] [place] [address] Sodium [Moles/Vol] 139 mmol/L Normal 134-146 [facility] Comment on above: Performed By: #### C MP, CBCA, 1798-8, 09407-5, 5643-2, 3040-3, PINR, 83564-4 #### [facility] ([id number]) [address], [address] [place] [address] Urea nitrogen [Mass/Vol] 17 mg/dL Normal 5-27 [facility] Comment on above: Performed By: #### C MP, CBCA, 1798-8, 49609-9, 5643-2, 3040-3, PINR, 64255-8 #### [facility] ([id number]) [address], [address] [place] [address] Basic Metabolic Panelon 09-0 -2023 Anion gap [Moles/Vol] 10 mmol/L 5 - 15 mmol/L [facility] Calcium [Mass/Vol] 9.3 mg/dL 8.5 - 10. 5 mg/dL [facility] Chloride [Moles/Vol] 104 mmol/L 98 - 10 9 mmol/L [facility] CO2 [Moles/Vol] 25 mmol/L 22 - 32 mmol/L [facility] Creatinine [Mass/Vol] 0.58 mg/dL 0.40 - 1.00 mg/dL [facility] Comment on above: METHOD TRACEABLE TO IDSD STANDARD eGFR (CKD-EPI)non-race dependent 90 - PINF [facility] Comment on above: Reported eGFR is based on the CKD-EPI 2020 equation that does not use a race coefficient. Glucose [Mass/Vol] 105 mg/dL High 65 - 99 mg/dL [facility] Interpretation and review of laboratory results Abnormal [facility] Potassium [Moles/Vol] 4.0 mmol/L 3.5 - 5.0 mmol/L [facility] Comment on above: SPECIMEN HEMOLYZED, RESULTS INCREASED MODERATELY HEMOLYZED Sodium [Moles/Vol] 139 mmol/L 134 - 146 mmol/L [facility] Urea nitrogen [Mass/Vol] 17 mg/dL 5 - 27 mg/dL [facility] CBC AND AUTO DIFFon 12-19-19 24 ABSOLUTE BASOPHIL 0.0 X10E9/L Normal 0.0-0.2 [facility] Comment on above: Performed By: #### C MP, CBCA, 1798-8, 37368-6, 5643-2, 3040-3, PINR, 24111-7 #### [facility] ([id number]) [address], [address] [place] [address] ABSOLUTE NEUTROPHIL 3.5 X10E9/L Normal 1.5-6.6 [facility] Comment on above: Performed By: #### C MP, CBCA, 1798-8, 25909-3, 5643-2, 3040-3, PINR, 85177-0 #### [facility] ([id number]) [address], [address] [place] [address] Basophils/100 WBC (Bld) 0.5 % Normal [facility] Comment on above: Performed By: #### C MP, CBCA, 1798-8, 58076-8, 5643-2, 3040-3, PINR, 72952-4 #### [facility] ([id number]) [address] [address] [place] [address] Eosinophils (Bld) [#/Vol] 0.2 10*3/uL Normal 0.0-0.4 [facility] Comment on above: Performed By: #### C MP, CBCA, 1798-8, 63731-6, 5643-2, 3040-3, PINR, 28061-4 #### [facility] ([id number]) [address] [address] Eosinophils/100 WBC (Bld) 3.3 % Normal [facility] Comment on above: Performed By: #### C MP, CBCA, 8-8, 05262-4, 5643-2, 3040-3, PINR, 39562-6 #### [facility] ([id number]) [address] [address] Erythrocyte distribution width (RBC) [Ratio] 14.6 % Normal 11.5-15.0 [facility] Comment on above: Performed By: #### C MP, CBCA, 8-8, 76561-2, 5643-2, 3040-3, PINR, 11674-8 #### [facility] ([id number]) [address] [address] Hematocrit (Bld) [Volume fraction] 35.6 % Normal 35-47 [facility] Comment on above: Performed By: #### C MP, CBCA, 1798-8, 36513-4, 5643-2, 3040-3, PINR, 41310-3 #### [facility] ([id number]) [address] [address] [place] [address] Hemoglobin (Bld) [Mass/Vol] 12.1 g/dL Normal 11.7-15. 5 [facility] Comment on above: Performed By: #### C MP, CBCA, 1798-8, 22920-3, 5643-2, 3040-3, PINR, 95467-4 #### [facility] ([id number]) [address] [address] Lymphocytes (Bld) [#/Vol] 2.0 10*3/uL Normal 1.0-3.5 [facility] Comment on above: Performed By: #### C MP, CBCA, 1798-8, 91167-6, 5643-2, 3040-3, PINR, 28677-0 #### [facility] ([id number]) [address] [address] Lymphocytes/100 WBC (Bld) 31.9 % Normal [facility] Comment on above: Performed By: #### C MP, CBCA, 1798-8, 66017-8, 5643-2, 3040-3, PINR, 14878-3 #### [facility] ([id number]) [address] [address] MCH (RBC) [Entitic mass] 30.2 pg Normal 27-34 [facility] Comment on above: Performed By: #### C MP, CBCA, 1798-8, 94008-1, 5643-2, 3040-3, PINR, 03729-4 #### [facility] ([id number]) [address] [address] MCHC (RBC) [Mass/Vol] 33.9 g/dL Normal 32-36 [facility] Comment on above: Performed By: #### C MP, CBCA, 1798-8, 68686-7, 5643-2, 3040-3, PINR, 95705-0 #### [facility] ([id number]) [address] [address] [place] [address] MCV (RBC) [Entitic vol] 89 fL Normal 80-100 [facility] Comment on above: Performed By: #### C MP, CBCA, 1798-8, 35042-1, 5643-2, 3040-3, PINR, 06762-8 #### [facility] ([id number]) [address], [address] [place] [address] Monocytes (Bld) [#/Vol] 0.4 10*3/uL Normal 0-0.9 [facility] Comment on above: Performed By: #### C MP, CBCA, 1798-8, 79527-1, 5643-2, 3040-3, PINR, 55402-0 #### [facility] ([id number]) [address], [facility] [address] [place] [address] Monocytes/100 WBC (Bld) 7.2 % Normal [facility] Comment on above: Performed By: #### C MP, CBCA, 1798-8, 83531-4, 5643-2, 3040-3, PINR, 26472-8 #### [facility] ([id number]) [address], [address] [place] [address] Neutrophils/100 WBC (Bld) 57.1 % Normal [facility] Comment on above: Performed By: #### C MP, CBCA, 1798-8, 10861-5, 5643-2, 3040-3, PINR, 37874-7 #### [facility] ([id number]) [address], [address] [place] [address] Platelet mean volume (Bld) [Entitic vol] 7.3 fL Normal 7-12 [facility] Comment on above: Performed By: #### C MP, CBCA, 1798-8, 41700-7, 5643-2, 3040-3, PINR, 83663-8 #### [facility] ([id number]) [address], [address] [place] [address] Platelets (Bld) [#/Vol] 264 10*3/uL Normal 150-450 [facility] Comment on above: Performed By: #### C MP, CBCA, 1798-8, 04018-2, 5643-2, 3040-3, PINR, 27835-8 #### [facility] ([id number]) [address], [address] [place] [address] RBC COUNT 4.00 X10E12/L Normal 3.80-5.20 [facility] Comment on above: Performed By: #### C MP, CBCA, 1798-8, 78065-4, 5643-2, 3040-3, PINR, 77432-7 #### [facility] ([id number]) [address], [address] [place] [address] WBC (Bld) [#/Vol] 6.1 10*3/uL Normal 4.0-11.0 [facility] Comment on above: Performed By: #### C MP, CBCA, 1798-8, 22498-0, 5643-2, 3040-3, PINR, 07995-4 #### [facility] ([id number]) [address], [address] [address] CBC auto differentialon 09-0 -2023 Basophils (Bld) [#/Vol] 0.0 10*3/uL [facility] Basophils/100 WBC (Bld) 0.5 % [facility] Eosinophils (Bld) [#/Vol] 0.2 10*3/uL [facility] Eosinophils/100 WBC (Bld) 3.3 % [facility] Erythrocyte distribution width (RBC) [Ratio] 14.6 % 11.5 - 15.0 % [facility] Hematocrit (Bld) [Volume fraction] 35.6 % 35 - 47 % [facility] Hemoglobin (Bld) [Mass/Vol] 12.1 g/dL 11.7 - 15.5 g/dL [facility] Lymphocytes (Bld) [#/Vol] 2.0 10*3/uL [facility] Lymphocytes/100 WBC (Bld) 31.9 % [facility] MCH (RBC) [Entitic mass] 30.2 pg 27 - 34 pg [facility] MCHC (RBC) [Mass/Vol] 33.9 g/dL 32 - 3 6 g/dL [facility] MCV (RBC) [Entitic vol] 89 fL 80 - 100 fL [facility] Monocytes (Bld) [#/Vol] 0.4 10*3/uL [facility] Monocytes/100 WBC (Bld) 7.2 % P [facility] Neutrophils (Bld) [#/Vol] 3.5 10*3/uL [facility] Neutrophils/100 WBC (Bld) 57.1 % [facility] Platelet mean volume (Bld) [Entitic vol] 7.3 fL 7 - 12 fL [facility] Platelets (Bld) [#/Vol] 264 10*3/uL [facility] RBC (Bld) [#/Vol] 4.00 10*6/uL [facility] WBC corrected for nucl RBC Auto (Bld) [#/Vol] 6.1 [facility] Glucose Glucometer (dC) [M ass/Vol]on 12-19-2023 Glucose [Mass/Vol] 182 mg/dL High 65 - 99 mg/dL [facility] Interpretation and review of laboratory results Abnormal [facility] Glucose [Mass/Vol] 182 mg/dL High 65-99 [facility] Glucose [Mass/Vol] 147 mg/dL High 65 - 99 mg/dL [facility] Interpretation and review of laboratory results Abnormal [facility] Glucose [Mass/Vol] 147 mg/dL High 65-99 [facility] Glucose [Mass/Vol] 192 mg/dL High 65 - 99 mg/dL [facility] Interpretation and review of laboratory results Abnormal [facility] Glucose [Mass/Vol] 192 mg/dL High 65-99 [facility] Glucose [Mass/Vol] 122 mg/dL High 65 - 99 mg/dL [facility] Interpretation and review of laboratory results Abnormal [facility] Glucose [Mass/Vol] 122 mg/dL High 65-99 [facility] BASIC METABOLIC PANLon 12-17 Anion gap [Moles/Vol] 10 mmol/L Normal 5-15 [facility] Comment on above: Performed By: #### C MP, CBCA, 1798-8, 30014-6, 5643-2, 3040-3, PINR, 93030-8 #### [facility] ([id number]) [address], [address] [place] [address] Calcium [Mass/Vol] 9.5 mg/dL Normal 8.5-10.5 [facility] Comment on above: Performed By: #### C MP, CBCA, 1798-8, 12371-0, 5643-2, 3040-3, PINR, [id number] #### [facility] ([id number]) [address] [place] [address] Chloride [Moles/Vol] 104 mmol/L Normal 98-109 [facility] Comment on above: Performed By: #### C MP, CBCA, 1798-8, 44048-1, 5643-2, 3040-3, PINR, 85144-4 #### [facility] ([id number]) [address], [address] [place] [address] CO2 [Moles/Vol] 27 mmol/L Normal 22-32 [facility] Comment on above: Performed By: #### C MP, CBCA, 1798-8, 34454-7, 5643-2, 3040-3, PINR, 25727-8 #### [facility] ([id number]) [address], [address] [place] [address] Creatinine [Mass/Vol] 0.66 mg/dL Normal 0.40-1.00 [facility] Comment on above: Result Comment: METH OD TRACEABLE TO IDMS STANDARD Performed By: #### C MP, CBCA, 1798-8, 19410-5, 5643-2, 3040-3, PINR, 49813-1 #### [facility] ([id number]) [address] [address] GFR/1.73 sq M.predicted among non-blacks MDRD (S/P/Bld) [Vol rate/Area] 87 mL/min/{1.73_m2} Normal >59 [facility] Comment on above: Result Comment: Reported eGFR is based on the CKD-EPI 2020 equation that does not use a race coefficient. Performed By: #### C MP, CBCA, 1798-8, 62474-6, 5643-2, 3040-3, PINR, 67030-2 #### [facility] ([id number]) [address] [address] Glucose [Mass/Vol] 94 mg/dL Normal 65-99 [facility] Comment on above: Performed By: #### C MP, CBCA, 1798-8, 83111-0, 5643-2, 3040-3, PINR, 78845-6 #### [facility] ([id number]) [address] [address] Potassium [Moles/Vol] 3.9 mmol/L Normal 3.5-5.0 [facility] Comment on above: Performed By: #### C MP, CBCA, 1798-8, 21354-4, 5643-2, 3040-3, PINR, 62381-3 #### [facility] ([id number]) [address] [address] Sodium [Moles/Vol] 141 mmol/L Normal 134-146 [facility] Comment on above: Performed By: #### C MP, CBCA, 1798-8, 79803-0, 5643-2, 3040-3, PINR, 34518-1 #### [facility] ([id number]) [address], [address] [place] [address] Urea nitrogen [Mass/Vol] 17 mg/dL Normal 5-27 [facility] Comment on above: Performed By: #### C MP, CBCA, 1798-8, 19801-2, 5643-2, 3040-3, PINR, 81932-6 #### [facility] ([id number]) [address], [address] [place] [address] Basic Metabolic Panelon 09- Anion gap [Moles/Vol] 10 mmol/L 5 - 15 mmol/L [facility] Calcium [Mass/Vol] 9.5 mg/dL 8.5 - 10. 5 mg/dL [facility] Chloride [Moles/Vol] 104 mmol/L 98 - 10 9 mmol/L [facility] CO2 [Moles/Vol] 27 mmol/L 22 - 32 mmol/L [facility] Creatinine [Mass/Vol] 0.66 mg/dL 0.40 - 1.00 mg/dL [facility] Comment on above: METHOD TRACEABLE TO IDSD STANDARD eGFR (CKD-EPI)non-race dependent 87 - PINF [facility] Comment on above: Reported eGFR is based on the CKD-EPI 2020 equation that does not use a race coefficient. Glucose [Mass/Vol] 94 mg/dL 65 - 99 mg/dL [facility] Potassium [Moles/Vol] 3.9 mmol/L 3.5 - 5.0 mmol/L [facility] Sodium [Moles/Vol] 141 mmol/L 134 - 146 mmol/L [facility] Urea nitrogen [Mass/Vol] 17 mg/dL 5 - 27 mg/dL [facility] CBC AND AUTO DIFFon 12-18-19 24 ABSOLUTE BASOPHIL 0.0 X10E9/L Normal 0.0-0.2 [facility] Comment on above: Performed By: #### C MP, CBCA, 1798-8, 53399-3, 5643-2, 3040-3, PINR, 75996-4 #### [facility] ([id number]) [address], [address] [place] [address] ABSOLUTE NEUTROPHIL 3.9 X10E9/L Normal 1.5-6.6 [facility] Comment on above: Performed By: #### C MP, CBCA, 1798-8, 89777-6, 5643-2, 3040-3, PINR, 63183-5 #### [facility] ([id number]) [address], [address] [place] [address] Basophils/100 WBC (Bld) 0.5 % Normal [facility] Comment on above: Performed By: #### C MP, CBCA, 1798-8, 28770-7, 5643-2, 3040-3, PINR, 28083-3 #### [facility] ([id number]) [address], [address] [place] [address] Eosinophils (Bld) [#/Vol] 0.3 10*3/uL Normal 0.0-0.4 [facility] Comment on above: Performed By: #### C MP, CBCA, 8-8, 60316-3, 5643-2, 3040-3, PINR, 61026-6 #### [facility] ([id number]) [address] [address] [place] [address] Eosinophils/100 WBC (Bld) 3.6 % Normal [facility] Comment on above: Performed By: #### C MP, CBCA, 1798-8, 16180-2, 5643-2, 3040-3, PINR, 45530-7 #### [facility] ([id number]) [address] [address] [place] [address] Erythrocyte distribution width (RBC) [Ratio] 14.5 % Normal 11.5-15.0 [facility] Comment on above: Performed By: #### C MP, CBCA, 1798-8, 48594-2, 5643-2, 3040-3, PINR, 65414-1 #### [facility] ([id number]) [address], [facility] [address] [place] [address] Hematocrit (Bld) [Volume fraction] 36.7 % Normal 35-47 [facility] Comment on above: Performed By: #### C MP, CBCA, 1798-8, 24383-3, 5643-2, 3040-3, PINR, 54317-8 #### [facility] ([id number]) [address] [address] Hemoglobin (Bld) [Mass/Vol] 12.7 g/dL Normal 11.7-15. 5 [facility] Comment on above: Performed By: #### C MP, CBCA, 1798-8, 45029-7, 5643-2, 3040-3, PINR, 31889-7 #### [facility] ([id number]) [address] [address] Lymphocytes (Bld) [#/Vol] 2.3 10*3/uL Normal 1.0-3.5 [facility] Comment on above: Performed By: #### C MP, CBCA, 1798-8, 67224-7, 5643-2, 3040-3, PINR, 54319-8 #### [facility] ([id number]) [address] [address] Lymphocytes/100 WBC (Bld) 32.6 % Normal [facility] Comment on above: Performed By: #### C MP, CBCA, 1798-8, 07286-1, 5643-2, 3040-3, PINR, 73931-7 #### [facility] ([id number]) [address] [address] [place] [address] MCH (RBC) [Entitic mass] 31.2 pg Normal 27-34 [facility] Comment on above: Performed By: #### C MP, CBCA, 1798-8, 74411-0, 5643-2, 3040-3, PINR, 21066-0 #### [facility] ([id number]) [address], [address] [place] [address] MCHC (RBC) [Mass/Vol] 34.7 g/dL Normal 32-36 [facility] Comment on above: Performed By: #### C MP, CBCA, 1798-8, 33025-6, 5643-2, 3040-3, PINR, 73209-5 #### [facility] ([id number]) [address], [address] [place] [address] MCV (RBC) [Entitic vol] 90 fL Normal 80-100 [facility] Comment on above: Performed By: #### C MP, CBCA, 8-8, 33125-0, 5643-2, 3040-3, PINR, 96987-8 #### [facility] ([id number]) [address], [address] [place] [address] Monocytes (Bld) [#/Vol] 0.6 10*3/uL Normal 0-0.9 [facility] Comment on above: Performed By: #### C MP, CBCA, 1798-8, 58958-9, 5643-2, 3040-3, PINR, 18133-7 #### [facility] ([id number]) [address], [address] [place] [address] Monocytes/100 WBC (Bld) 7.9 % Normal [facility] Comment on above: Performed By: #### C MP, CBCA, 1798-8, 45027-8, 5643-2, 3040-3, PINR, 27768-8 #### [facility] ([id number]) [address], [address] [place] [address] Neutrophils/100 WBC (Bld) 55.4 % Normal [facility] Comment on above: Performed By: #### C MP, CBCA, 1798-8, 72133-5, 5643-2, 3040-3, PINR, 76264-1 #### [facility] ([id number]) [address], [address] [place] [address] Platelet mean volume (Bld) [Entitic vol] 7.4 fL Normal 7-12 [facility] Comment on above: Performed By: #### C MP, CBCA, 1798-8, 62346-6, 5643-2, 3040-3, PINR, 01636-9 #### [facility] ([id number]) [address] [address] [place] [address] Platelets (Bld) [#/Vol] 255 10*3/uL Normal 150-450 [facility] Comment on above: Performed By: #### C MP, CBCA, 1798-8, 50418-6, 5643-2, 3040-3, PINR, 03464-0 #### [facility] ([id number]) [address], [address] [place] [address] RBC COUNT 4.09 X10E12/L Normal 3.80-5.20 [facility] Comment on above: Performed By: #### C MP, CBCA, 1798-8, 76710-6, 5643-2, 3040-3, PINR, 71809-2 #### [facility] ([id number]) [address], [address] [place] [address] WBC (Bld) [#/Vol] 7.1 10*3/uL Normal 4.0-11.0 [facility] Comment on above: Performed By: #### C MP, CBCA, 1798-8, 64654-3, 5643-2, 3040-3, PINR, 04767-9 #### [facility] ([id number]) [address], [address] [place] [address] CBC auto differentialon Basophils (Bld) [#/Vol] 0.0 10*3/uL [facility] Basophils/100 WBC (Bld) 0.5 % P [facility] Eosinophils (Bld) [#/Vol] 0.3 10*3/uL [facility] Eosinophils/100 WBC (Bld) 3.6 % [facility] Erythrocyte distribution width (RBC) [Ratio] 14.5 % 11.5 - 15.0 % [facility] Hematocrit (Bld) [Volume fraction] 36.7 % 35 - 47 % [facility] Hemoglobin (Bld) [Mass/Vol] 12.7 g/dL 11.7 - 15.5 g/dL [facility] Lymphocytes (Bld) [#/Vol] 2.3 10*3/uL [facility] Lymphocytes/100 WBC (Bld) 32.6 % [facility] MCH (RBC) [Entitic mass] 31.2 pg 27 - 34 pg [facility] MCHC (RBC) [Mass/Vol] 34.7 g/dL 32 - 3 6 g/dL [facility] MCV (RBC) [Entitic vol] 90 fL 80 - 100 fL [facility] Monocytes (Bld) [#/Vol] 0.6 10*3/uL [facility] Monocytes/100 WBC (Bld) 7.9 % P [facility] Neutrophils (Bld) [#/Vol] 3.9 10*3/uL [facility] Neutrophils/100 WBC (Bld) 55.4 % [facility] Platelet mean volume (Bld) [Entitic vol] 7.4 fL 7 - 12 fL [facility] Platelets (Bld) [#/Vol] 255 10*3/uL [facility] RBC (Bld) [#/Vol] 4.09 10*6/uL [facility] WBC corrected for nucl RBC Auto (Bld) [#/Vol] 7.1 [facility] Glucose Glucometer (BldC) [M ass/Vol]on 12-18-2023 Glucose [Mass/Vol] 159 mg/dL High 65 - 99 mg/dL [facility] Interpretation and review of laboratory results Abnormal [facility] Glucose [Mass/Vol] 159 mg/dL High 65-99 [facility] Glucose [Mass/Vol] 93 mg/dL 65 - 99 mg/dL [facility] Glucose [Mass/Vol] 93 mg/dL Normal 65-99 [facility] Glucose [Mass/Vol] 113 mg/dL High 65 - 99 mg/dL [facility] Interpretation and review of laboratory results Abnormal [facility] Glucose [Mass/Vol] 113 mg/dL High 65-99 [facility] Glucose [Mass/Vol] 101 mg/dL High 65 - 99 mg/dL [facility] Interpretation and review of laboratory results Abnormal [facility] Glucose [Mass/Vol] 101 mg/dL High 65-99 [facility] BASIC METABOLIC PANLon 12-16 Anion gap [Moles/Vol] 10 mmol/L Normal 5-15 [facility] Comment on above: Performed By: #### C MP, CBCA, 1798-8, 65374-8, 5643-2, 3040-3, PINR, 26299-1 #### [facility] ([id number]) [address], [address] [place] [address] Calcium [Mass/Vol] 9.0 mg/dL Normal 8.5-10.5 [facility] Comment on above: Performed By: #### C MP, CBCA, 1798-8, 01215-8, 5643-2, 3040-3, PINR, 78080-5 #### [facility] ([id number]) [address], [address] [place] [address] Chloride [Moles/Vol] 106 mmol/L Normal 98-109 [facility] Comment on above: Performed By: #### C MP, CBCA, 1798-8, 76162-3, 5643-2, 3040-3, PINR, 52291-4 #### [facility] ([id number]) [address], [address] [place] [address] CO2 [Moles/Vol] 26 mmol/L Normal 22-32 [facility] Comment on above: Performed By: #### C SAEED, CBCA, 1798-8, 53930-0, 5643-2, 3040-3, PINR, 22866-6 #### [facility] ([id number]) [address], [address] [place] [address] Creatinine [Mass/Vol] 0.61 mg/dL Normal 0.40-1.00 [facility] Comment on above: Result Comment: METH OD TRACEABLE TO IDMS STANDARD Performed By: #### C SAEED, DANISA, 1798-8, 73520-8, 5643-2, 3040-3, PINR, 76699-7 #### [facility] ([id number]) [address], [address] [place] [address] GFR/1.73 sq M.predicted among non-blacks MDRD (S/P/Bld) [Vol rate/Area] 89 mL/min/{1.73_m2} Normal >59 [facility] Comment on above: Result Comment: Reported eGFR is based on the CKD-EPI 2020 equation that does not use a race coefficient. Performed By: #### C SAEED, CBCA, 8-8, 40992-6, 5643-2, 3040-3, PINR, 81804-3 #### [facility] ([id number]) [address], [address] [place] [address] Glucose [Mass/Vol] 108 mg/dL High 65-99 [facility] Comment on above: Performed By: #### C SAEED, CBCA, 1798-8, 43979-7, 5643-2, 3040-3, PINR, 45791-9 #### [facility] ([id number]) [address], [address] [place] [address] Potassium [Moles/Vol] 3.6 mmol/L Normal 3.5-5.0 [facility] Comment on above: Performed By: #### C MP, CBCA, 1798-8, 17201-0, 5643-2, 3040-3, PINR, 73539-2 #### [facility] ([id number]) [address], [address] [place] [address] Sodium [Moles/Vol] 142 mmol/L Normal 134-146 [facility] Comment on above: Performed By: #### C MP, CBCA, 1798-8, 09150-4, 5643-2, 3040-3, PINR, 92220-5 #### [facility] ([id number]) [address], [address] [place] [address] Urea nitrogen [Mass/Vol] 13 mg/dL Normal 5-27 [facility] Comment on above: Performed By: #### C MP, CBCA, 1798-8, 12446-0, 5643-2, 3040-3, PINR, 28690-5 #### [facility] ([id number]) [address], [address] [place] [address] Basic Metabolic Panelon 08-3 Anion gap [Moles/Vol] 10 mmol/L 5 - 15 mmol/L [facility] Calcium [Mass/Vol] 9.0 mg/dL 8.5 - 10. 5 mg/dL [facility] Chloride [Moles/Vol] 106 mmol/L 98 - 10 9 mmol/L [facility] CO2 [Moles/Vol] 26 mmol/L 22 - 32 mmol/L [facility] Creatinine [Mass/Vol] 0.61 mg/dL 0.40 - 1.00 mg/dL [facility] Comment on above: METHOD TRACEABLE TO IDMS STANDARD eGFR (CKD-EPI)non-race dependent 89 - PINF [facility] Comment on above: Reported eGFR is based on the CKD-EPI 2020 equation that does not use a race coefficient. Glucose [Mass/Vol] 108 mg/dL High 65 - 99 mg/dL [facility] Interpretation and review of laboratory results Abnormal [facility] Potassium [Moles/Vol] 3.6 mmol/L 3.5 - 5.0 mmol/L [facility] Sodium [Moles/Vol] 142 mmol/L 134 - 146 mmol/L [facility] Urea nitrogen [Mass/Vol] 13 mg/dL 5 - 27 mg/dL [facility] CBC AND AUTO DIFFon 12-17-19 24 ABSOLUTE BASOPHIL 0.0 X10E9/L Normal 0.0-0.2 [facility] Comment on above: Performed By: #### C MP, CBCA, 1798-8, 44954-4, 5643-2, 3040-3, PINR, 94378-0 #### [facility] ([id number]) [address], [address] [place] [address] ABSOLUTE NEUTROPHIL 4.2 X10E9/L Normal 1.5-6.6 [facility] Comment on above: Performed By: #### C MP, CBCA, 1798-8, 73859-7, 5643-2, 3040-3, PINR, 46461-3 #### [facility] ([id number]) [address], [address] [place] [address] Basophils/100 WBC (Bld) 0.5 % Normal [facility] Comment on above: Performed By: #### C MP, CBCA, 1798-8, 67978-8, 5643-2, 3040-3, PINR, 56054-2 #### [facility] ([id number]) [address], [address] [place] [address] Eosinophils (Bld) [#/Vol] 0.2 10*3/uL Normal 0.0-0.4 [facility] Comment on above: Performed By: #### C MP, CBCA, 1798-8, 04490-5, 5643-2, 3040-3, PINR, 73153-4 #### [facility] ([id number]) [address] [address] [place] [address] Eosinophils/100 WBC (Bld) 3.2 % Normal [facility] Comment on above: Performed By: #### C MP, CBCA, 1798-8, 58271-9, 5643-2, 3040-3, PINR, 52363-6 #### [facility] ([id number]) [address] [address] [place] [address] Erythrocyte distribution width (RBC) [Ratio] 14.4 % Normal 11.5-15.0 [facility] Comment on above: Performed By: #### C MP, CBCA, 1798-8, 41974-0, 5643-2, 3040-3, PINR, 69040-5 #### [facility] ([id number]) [address] [address] [place] [address] Hematocrit (Bld) [Volume fraction] 34.3 % Low 35-47 [facility] Comment on above: Performed By: #### C MP, CBCA, 8-8, 90136-9, 5643-2, 3040-3, PINR, 12164-8 #### [facility] ([id number]) [address] [address] [place] [address] Hemoglobin (Bld) [Mass/Vol] 11.6 g/dL Low 11.7-15. 5 [facility] Comment on above: Performed By: #### C MP, CBCA, 1798-8, 37490-1, 5643-2, 3040-3, PINR, 06682-1 #### [facility] ([id number]) [address] [address] [place] [address] Lymphocytes (Bld) [#/Vol] 1.6 10*3/uL Normal 1.0-3.5 [facility] Comment on above: Performed By: #### C MP, CBCA, 1798-8, 19536-4, 5643-2, 3040-3, PINR, 18590-3 #### [facility] ([id number]) [address] [address] [place] [address] Lymphocytes/100 WBC (Bld) 24.1 % Normal [facility] Comment on above: Performed By: #### C MP, CBCA, 1798-8, 31355-2, 5643-2, 3040-3, PINR, 57352-9 #### [facility] ([id number]) [address] [address] MCH (RBC) [Entitic mass] 30.6 pg Normal 27-34 [facility] Comment on above: Performed By: #### C MP, CBCA, 8-8, 38477-2, 5643-2, 3040-3, PINR, 67308-9 #### [facility] ([id number]) [address] [address] MCHC (RBC) [Mass/Vol] 34.0 g/dL Normal 32-36 [facility] Comment on above: Performed By: #### C MP, CBCA, 8-8, 47377-9, 5643-2, 3040-3, PINR, 39939-8 #### [facility] ([id number]) [address] [address] MCV (RBC) [Entitic vol] 90 fL Normal 80-100 [facility] Comment on above: Performed By: #### C MP, CBCA, 1798-8, 08311-7, 5643-2, 3040-3, PINR, 63687-3 #### [facility] ([id number]) [address] [address] Monocytes (Bld) [#/Vol] 0.6 10*3/uL Normal 0-0.9 [facility] Comment on above: Performed By: #### C MP, CBCA, 1798-8, 52093-8, 5643-2, 3040-3, PINR, 70428-5 #### [facility] ([id number]) [address], [address] [place] [address] Monocytes/100 WBC (Bld) 8.4 % Normal [facility] Comment on above: Performed By: #### C MP, CBCA, 1798-8, 65732-9, 5643-2, 3040-3, PINR, 64504-4 #### [facility] ([id number]) [address], [facility] [address] [place] [address] Neutrophils/100 WBC (Bld) 63.8 % Normal [facility] Comment on above: Performed By: #### C MP, CBCA, 1798-8, 56050-0, 5643-2, 3040-3, PINR, 66659-3 #### [facility] ([id number]) [address] [place] [address] Platelet mean volume (Bld) [Entitic vol] 7.4 fL Normal 7-12 [facility] Comment on above: Performed By: #### C MP, CBCA, 1798-8, 50756-4, 5643-2, 3040-3, PINR, 02368-2 #### [facility] ([id number]) [address], [address] [place] [address] Platelets (Bld) [#/Vol] 252 10*3/uL Normal 150-450 [facility] Comment on above: Performed By: #### C MP, CBCA, 1798-8, 76735-4, 5643-2, 3040-3, PINR, 74037-0 #### [facility] ([id number]) [address] [place] [address] RBC COUNT 3.81 X10E12/L Normal 3.80-5.20 [facility] Comment on above: Performed By: #### C MP, CBCA, 1798-8, 58211-2, 5643-2, 3040-3, PINR, 76868-6 #### [facility] ([id number]) [address], [address] [place] [address] WBC (Bld) [#/Vol] 6.6 10*3/uL Normal 4.0-11.0 [facility] Comment on above: Performed By: #### C MP, CBCA, 1798-8, 07194-2, 5643-2, 3040-3, PINR, 42992-9 #### [facility] ([id number]) [address] [place] [address] CBC auto differentialon 08-3 Basophils (Bld) [#/Vol] 0.0 10*3/uL [facility] Basophils/100 WBC (Bld) 0.5 % [facility] Eosinophils (Bld) [#/Vol] 0.2 10*3/uL [facility] Eosinophils/100 WBC (Bld) 3.2 % [facility] Erythrocyte distribution width (RBC) [Ratio] 14.4 % 11.5 - 15.0 % [facility] Hematocrit (Bld) [Volume fraction] 34.3 % Low 35 - 47 % [facility] Hemoglobin (Bld) [Mass/Vol] 11.6 g/dL Low 11.7 - 15.5 g/dL [facility] Interpretation and review of laboratory results Abnormal [facility] Lymphocytes (Bld) [#/Vol] 1.6 10*3/uL [facility] Lymphocytes/100 WBC (Bld) 24.1 % [facility] MCH (RBC) [Entitic mass] 30.6 pg 27 - 34 pg [facility] MCHC (RBC) [Mass/Vol] 34.0 g/dL 32 - 3 6 g/dL [facility] MCV (RBC) [Entitic vol] 90 fL 80 - 100 fL [facility] Monocytes (Bld) [#/Vol] 0.6 10*3/uL [facility] Monocytes/100 WBC (Bld) 8.4 % [facility] Neutrophils (Bld) [#/Vol] 4.2 10*3/uL [facility] Neutrophils/100 WBC (Bld) 63.8 % [facility] Platelet mean volume (Bld) [Entitic vol] 7.4 fL 7 - 12 fL [facility] Platelets (Bld) [#/Vol] 252 10*3/uL [facility] RBC (Bld) [#/Vol] 3.81 10*6/uL [facility] WBC corrected for nucl RBC Auto (Bld) [#/Vol] 6.6 [facility] Glucose Glucometer (dC) [M ass/Vol]on 12-17-2023 Glucose [Mass/Vol] 107 mg/dL High 65 - 99 mg/dL [facility] Interpretation and review of laboratory results Abnormal [facility] Glucose [Mass/Vol] 107 mg/dL High 65-99 [facility] Glucose [Mass/Vol] 118 mg/dL High 65 - 99 mg/dL [facility] Interpretation and review of laboratory results Abnormal [facility] Glucose [Mass/Vol] 118 mg/dL High 65-99 [facility] Glucose [Mass/Vol] 113 mg/dL High 65 - 99 mg/dL [facility] Interpretation and review of laboratory results Abnormal [facility] Glucose [Mass/Vol] 113 mg/dL High 65-99 [facility] Glucose [Mass/Vol] 100 mg/dL High 65 - 99 mg/dL [facility] Interpretation and review of laboratory results Abnormal [facility] Glucose [Mass/Vol] 100 mg/dL High 65-99 [facility] US.doppler Lower extremity v ein - bilateralon 12-17-2023 Right: Limited visualization of veins due to patient positioning. Lower extremity deep veins are compressible with spontaneous phasic spectral Doppler waveforms; superficial veins are compressible without intraluminal content. Left: Limited visualization of veins due to patient positioning. Non-visualized, absent or surgically harvested Great saphenous superficial vein in the thigh. Remaining visualized deep venous segments are compressible with spontaneous phasic spectral Doppler waveforms. Superficial veins are compressible. Conclusions: RIGHT:NO EVIDENCE of deep or superficial vein thrombosis of the lower extremity.LEFT:NO EVIDENCE of deep or superficial vein thrombosis of the lower extremity.The great saphenous vein is not visualized or surgically absent.Non- visualization of the internal, external, and common carotid artery due to neck bandaging Recommendations: Any questions prior to finalization, please call the reading physician during normal business hours at the phone number beside their name. PM CARDIOVASCULAR Rodney Lares MD - 12/17/2023 Right: Limited visualization of veins due to patient positioning. Lower extremity deep veins are compressible with spontaneous phasic spectral Doppler waveforms; superficial veins are compressible without intraluminal content. Left: Limited visualization of veins due to patient positioning. Non-visualized, absent or surgically harvested Great saphenous superficial vein in the thigh. Remaining visualized deep venous segments are compressible with spontaneous phasic spectral Doppler waveforms. Superficial veins are compressible. Conclusions: RIGHT:NO EVIDENCE of deep or superficial vein thrombosis of the lower extremity.LEFT:NO EVIDENCE of deep or superficial vein thrombosis of the lower extremity.The great saphenous vein is not visualized or surgically absent.Non- visualization of the internal, external, and common carotid artery due to neck bandaging Recommendations: Any questions prior to finalization, please call the reading physician during normal business hours at the phone number beside their name. [facility] Zounds Hearing Aids [facility] Radiology Study observation (narrative) [facility] Hearing [employer] US.doppler Lower extremity v ein - bilateralOrdered By: Rodney Lares on 12-17-2023 [facility] Work Phone: BASIC METABOLIC PANLon 12-15 Anion gap [Moles/Vol] 8 mmol/L Normal 5-15 [facility] Comment on above: Performed By: #### C MP, CBCA, 1798-8, 02521-5, 5643-2, 3040-3, PINR, 51598-6 #### [facility] ([id number]) [address], [address] [place] [address] Calcium [Mass/Vol] 8.9 mg/dL Normal 8.5-10.5 [facility] Comment on above: Performed By: #### C MP, CBCA, 1798-8, 22696-7, 5643-2, 3040-3, PINR, 69100-4 #### [facility] ([id number]) [address], [address] [place] [address] Chloride [Moles/Vol] 107 mmol/L Normal 98-109 [facility] Comment on above: Performed By: #### C MP, CBCA, 1798-8, 64240-1, 5643-2, 3040-3, PINR, 04304-5 #### [facility] ([id number]) [address], [address] [place] [address] CO2 [Moles/Vol] 24 mmol/L Normal 22-32 [facility] Comment on above: Performed By: #### C MP, CBCA, 1798-8, 02996-9, 5643-2, 3040-3, PINR, 30341-0 #### [facility] ([id number]) [address], [address] [place] [address] Creatinine [Mass/Vol] 0.51 mg/dL Normal 0.40-1.00 [facility] Comment on above: Result Comment: METH OD TRACEABLE TO IDMS STANDARD Performed By: #### C MP, CBCA, 1798-8, 94015-4, 5643-2, 3040-3, PINR, [id number] #### [facility] ([id number]) [address], [address] [place] [address] eGFR (CKD-EPI) NON-RACE DEPENDENT >90 Normal >59 [facility] Comment on above: Result Comment: Reported eGFR is based on the CKD-EPI 2020 equation that does not use a race coefficient. Performed By: #### C MP, CBCA, 1798-8, 23480-1, 5643-2, 3040-3, PINR, 44563-0 #### [facility] ([id number]) [address], [address] [place] [address] Glucose [Mass/Vol] 163 mg/dL High 65-99 [facility] Comment on above: Performed By: #### C MP, CBCA, 1798-8, 56112-4, 5643-2, 3040-3, PINR, 32175-7 #### [facility] ([id number]) [address], [address] [place] [address] Potassium [Moles/Vol] 3.7 mmol/L Normal 3.5-5.0 [facility] Comment on above: Performed By: #### C MP, CBCA, 1798-8, 94672-7, 5643-2, 3040-3, PINR, 12142-6 #### [facility] ([id number]) [address], [address] [place] [address] Sodium [Moles/Vol] 139 mmol/L Normal 134-146 [facility] Comment on above: Performed By: #### C MP, CBCA, 1798-8, 76852-8, 5643-2, 3040-3, PINR, 53324-2 #### [facility] ([id number]) [address], [address] [place] [address] Urea nitrogen [Mass/Vol] 12 mg/dL Normal 5-27 [facility] Comment on above: Performed By: #### C MP, CBCA, 1798-8, 73639-8, 5643-2, 3040-3, PINR, 95982-8 #### [facility] ([id number]) [address], [address] [place] [address] Basic Metabolic Panelon 08-3 -2023 Anion gap [Moles/Vol] 8 mmol/L 5 - 15 mmol/L [facility] Calcium [Mass/Vol] 8.9 mg/dL 8.5 - 10. 5 mg/dL [facility] Chloride [Moles/Vol] 107 mmol/L 98 - 10 9 mmol/L [facility] CO2 [Moles/Vol] 24 mmol/L 22 - 32 mmol/L [facility] Creatinine [Mass/Vol] 0.51 mg/dL 0.40 - 1.00 mg/dL [facility] Comment on above: METHOD TRACEABLE TO IDSD STANDARD eGFR (CKD-EPI)non-race dependent - PINF [facility] Comment on above: Reported eGFR is based on the CKD-EPI 2020 equation that does not use a race coefficient. Glucose [Mass/Vol] 163 mg/dL High 65 - 99 mg/dL [facility] Interpretation and review of laboratory results Abnormal [facility] Potassium [Moles/Vol] 3.7 mmol/L 3.5 - 5.0 mmol/L [facility] Sodium [Moles/Vol] 139 mmol/L 134 - 146 mmol/L [facility] Urea nitrogen [Mass/Vol] 12 mg/dL 5 - 27 mg/dL [facility] CBC AND AUTO DIFFon 12-16-19 24 ABSOLUTE BASOPHIL 0.0 X10E9/L Normal 0.0-0.2 [facility] Comment on above: Performed By: #### C MP, CBCA, 8-8, 02155-9, 5643-2, 3040-3, PINR, 34928-6 #### [facility] ([id number]) [address], [address] [place] [address] ABSOLUTE NEUTROPHIL 4.2 X10E9/L Normal 1.5-6.6 [facility] Comment on above: Performed By: #### C MP, CBCA, 1798-8, 58970-8, 5643-2, 3040-3, PINR, 65928-9 #### [facility] ([id number]) [address], [address] [place] [address] Basophils/100 WBC (Bld) 0.4 % Normal [facility] Comment on above: Performed By: #### C MP, CBCA, 8-8, 85994-1, 5643-2, 3040-3, PINR, 83391-8 #### [facility] ([id number]) [address] [address] [place] [address] Eosinophils (Bld) [#/Vol] 0.2 10*3/uL Normal 0.0-0.4 [facility] Comment on above: Performed By: #### C MP, CBCA, 1798-8, 05074-4, 5643-2, 3040-3, PINR, 73783-6 #### [facility] ([id number]) [address] [address] Eosinophils/100 WBC (Bld) 2.8 % Normal [facility] Comment on above: Performed By: #### C MP, CBCA, 1798-8, 17085-9, 5643-2, 3040-3, PINR, 26248-1 #### [facility] ([id number]) [address] [address] Erythrocyte distribution width (RBC) [Ratio] 14.3 % Normal 11.5-15.0 [facility] Comment on above: Performed By: #### C MP, CBCA, 8-8, 09334-5, 5643-2, 3040-3, PINR, 66458-0 #### [facility] ([id number]) [address] [address] Hematocrit (Bld) [Volume fraction] 33.6 % Low 35-47 [facility] Comment on above: Performed By: #### C MP, CBCA, 1798-8, 82526-8, 5643-2, 3040-3, PINR, 22658-6 #### [facility] ([id number]) [address] [address] Hemoglobin (Bld) [Mass/Vol] 11.8 g/dL Normal 11.7-15. 5 [facility] Comment on above: Performed By: #### C MP, CBCA, 1798-8, 16638-6, 5643-2, 3040-3, PINR, 99607-9 #### [facility] ([id number]) [address] [address] Lymphocytes (Bld) [#/Vol] 1.2 10*3/uL Normal 1.0-3.5 [facility] Comment on above: Performed By: #### C MP, CBCA, 1798-8, 09044-8, 5643-2, 3040-3, PINR, 76484-7 #### [facility] ([id number]) [address] [address] Lymphocytes/100 WBC (Bld) 19.6 % Normal [facility] Comment on above: Performed By: #### C MP, CBCA, 8-8, 30039-5, 5643-2, 3040-3, PINR, 02922-6 #### [facility] ([id number]) [address] [address] MCH (RBC) [Entitic mass] 31.7 pg Normal 27-34 [facility] Comment on above: Performed By: #### C MP, CBCA, 1798-8, 85946-8, 5643-2, 3040-3, PINR, 53429-2 #### [facility] ([id number]) [address] [address] MCHC (RBC) [Mass/Vol] 35.3 g/dL Normal 32-36 [facility] Comment on above: Performed By: #### C MP, CBCA, 1798-8, 69361-3, 5643-2, 3040-3, PINR, 60023-0 #### [facility] ([id number]) [address] [address] [place] [address] MCV (RBC) [Entitic vol] 90 fL Normal 80-100 [facility] Comment on above: Performed By: #### C MP, CBCA, 1798-8, 83141-7, 5643-2, 3040-3, PINR, 74561-8 #### [facility] ([id number]) [address], [address] [place] [address] Monocytes (Bld) [#/Vol] 0.4 10*3/uL Normal 0-0.9 [facility] Comment on above: Performed By: #### C MP, CBCA, 1798-8, 00303-2, 5643-2, 3040-3, PINR, 67947-8 #### [facility] ([id number]) [address], [address] [place] [address] Monocytes/100 WBC (Bld) 6.7 % Normal [facility] Comment on above: Performed By: #### C MP, CBCA, 1798-8, 23674-4, 5643-2, 3040-3, PINR, 85517-6 #### [facility] ([id number]) [address], [address] [place] [address] Neutrophils/100 WBC (Bld) 70.5 % Normal [facility] Comment on above: Performed By: #### C MP, CBCA, 1798-8, 46953-1, 5643-2, 3040-3, PINR, 04138-3 #### [facility] ([id number]) [address], [address] [place] [address] Platelet mean volume (Bld) [Entitic vol] 7.2 fL Normal 7-12 [facility] Comment on above: Performed By: #### C MP, CBCA, 1798-8, 07390-0, 5643-2, 3040-3, PINR, 63544-6 #### [facility] ([id number]) [address], [address] [place] [address] Platelets (Bld) [#/Vol] 215 10*3/uL Normal 150-450 [facility] Comment on above: Performed By: #### C MP, CBCA, 1798-8, 13915-4, 5643-2, 3040-3, PINR, 83747-4 #### [facility] ([id number]) [address], [address] [place] [address] RBC COUNT 3.73 X10E12/L Low 3.80-5.20 [facility] Comment on above: Performed By: #### C MP, CBCA, 1798-8, 66747-1, 5643-2, 3040-3, PINR, 99646-0 #### [facility] ([id number]) [address], [address] [place] [address] WBC (Bld) [#/Vol] 6.0 10*3/uL Normal 4.0-11.0 [facility] Comment on above: Performed By: #### C MP, CBCA, 1798-8, 56436-5, 5643-2, 3040-3, PINR, 64386-0 #### [facility] ([id number]) [address], [address] [place] [address] CBC auto differentialon 3 0-2023 Basophils (Bld) [#/Vol] 0.0 10*3/uL [facility] Basophils/100 WBC (Bld) 0.4 % [facility] Eosinophils (Bld) [#/Vol] 0.2 10*3/uL [facility] Eosinophils/100 WBC (Bld) 2.8 % [facility] Erythrocyte distribution width (RBC) [Ratio] 14.3 % 11.5 - 15.0 % [facility] Hematocrit (Bld) [Volume fraction] 33.6 % Low 35 - 47 % [facility] Hemoglobin (Bld) [Mass/Vol] 11.8 g/dL 11.7 - 15.5 g/dL [facility] Interpretation and review of laboratory results Abnormal [facility] Lymphocytes (Bld) [#/Vol] 1.2 10*3/uL [facility] Lymphocytes/100 WBC (Bld) 19.6 % [facility] MCH (RBC) [Entitic mass] 31.7 pg 27 - 34 pg [facility] MCHC (RBC) [Mass/Vol] 35.3 g/dL 32 - 3 6 g/dL [facility] MCV (RBC) [Entitic vol] 90 fL 80 - 100 fL [facility] Monocytes (Bld) [#/Vol] 0.4 10*3/uL [facility] Monocytes/100 WBC (Bld) 6.7 % P [facility] Neutrophils (Bld) [#/Vol] 4.2 10*3/uL [facility] Neutrophils/100 WBC (Bld) 70.5 % [facility] Platelet mean volume (Bld) [Entitic vol] 7.2 fL 7 - 12 fL [facility] Platelets (Bld) [#/Vol] 215 10*3/uL [facility] RBC (Bld) [#/Vol] 3.73 10*6/uL Low [facility] WBC corrected for nucl RBC Auto (Bld) [#/Vol] 6.0 [facility] Glucose Glucometer (dC) [M ass/Vol]on 12-16-2023 Glucose [Mass/Vol] 101 mg/dL High 65 - 99 mg/dL [facility] Interpretation and review of laboratory results Abnormal [facility] Glucose [Mass/Vol] 101 mg/dL High 65-99 [facility] Glucose [Mass/Vol] 105 mg/dL High 65 - 99 mg/dL [facility] Interpretation and review of laboratory results Abnormal [facility] Glucose [Mass/Vol] 105 mg/dL High 65-99 [facility] Glucose [Mass/Vol] 180 mg/dL High 65 - 99 mg/dL [facility] Interpretation and review of laboratory results Abnormal [facility] Glucose [Mass/Vol] 180 mg/dL High 65-99 [facility] Glucose [Mass/Vol] 174 mg/dL High 65 - 99 mg/dL [facility] Interpretation and review of laboratory results Abnormal [facility] Glucose [Mass/Vol] 174 mg/dL High 65-99 [facility] BASIC METABOLIC PANLon 12-14 Anion gap [Moles/Vol] 11 mmol/L Normal 5-15 [facility] Comment on above: Performed By: #### C MP, CBCA, 1798-8, 43337-7, 5643-2, 3040-3, PINR, 27009-1 #### [facility] ([id number]) [address] [place] [address] Calcium [Mass/Vol] 9.4 mg/dL Normal 8.5-10.5 [facility] Comment on above: Performed By: #### C MP, CBCA, 1798-8, 23449-2, 5643-2, 3040-3, PINR, 20547-3 #### [facility] ([id number]) [address] [place] [address] Chloride [Moles/Vol] 105 mmol/L Normal 98-109 [facility] Comment on above: Performed By: #### C MP, CBCA, 1798-8, 54078-2, 5643-2, 3040-3, PINR, 99434-3 #### [facility] ([id number]) [address] [place] [address] CO2 [Moles/Vol] 25 mmol/L Normal 22-32 [facility] Comment on above: Performed By: #### C MP, CBCA, 1798-8, 32721-8, 5643-2, 3040-3, PINR, 52490-8 #### [facility] ([id number]) [address] [place] [address] Creatinine [Mass/Vol] 0.69 mg/dL Normal 0.40-1.00 [facility] Comment on above: Result Comment: METH OD TRACEABLE TO IDMS STANDARD Performed By: #### C MP, CBCA, 1798-8, 98091-4, 5643-2, 3040-3, PINR, 74630-3 #### [facility] ([id number]) [address] [facility] [address] [place] [address] GFR/1.73 sq M.predicted among non-blacks MDRD (S/P/Bld) [Vol rate/Area] 86 mL/min/{1.73_m2} Normal >59 [facility] Comment on above: Result Comment: Reported eGFR is based on the CKD-EPI 2020 equation that does not use a race coefficient. Performed By: #### C MP, CBCA, 1798-8, 09041-3, 5643-2, 3040-3, PINR, 95004-2 #### [facility] ([id number]) [address], [facility] [address] [place] [address] Glucose [Mass/Vol] 147 mg/dL High 65-99 [facility] Comment on above: Performed By: #### C MP, CBCA, 1798-8, 78088-0, 5643-2, 3040-3, PINR, 63221-0 #### [facility] ([id number]) [address], [facility] [address] [place] [address] Potassium [Moles/Vol] 3.8 mmol/L Normal 3.5-5.0 [facility] Comment on above: Performed By: #### C MP, CBCA, 1798-8, 62085-2, 5643-2, 3040-3, PINR, 38468-5 #### [facility] ([id number]) [address], [address] [place] [address] Sodium [Moles/Vol] 141 mmol/L Normal 134-146 [facility] Comment on above: Performed By: #### C MP, CBCA, 1798-8, 90588-7, 5643-2, 3040-3, PINR, 23233-0 #### [facility] ([id number]) [address], [address] [place] [address] Urea nitrogen [Mass/Vol] 14 mg/dL Normal 5-27 [facility] Comment on above: Performed By: #### C MP, CBCA, 1798-8, 69514-9, 5643-2, 3040-3, PINR, 46072-1 #### [facility] ([id number]) [address], [address] [place] [address] Basic Metabolic Panelon 11-17 Anion gap [Moles/Vol] 11 mmol/L 5 - 15 mmol/L [facility] Calcium [Mass/Vol] 9.4 mg/dL 8.5 - 10. 5 mg/dL [facility] Chloride [Moles/Vol] 105 mmol/L 98 - 10 9 mmol/L [facility] CO2 [Moles/Vol] 25 mmol/L 22 - 32 mmol/L [facility] Creatinine [Mass/Vol] 0.69 mg/dL 0.40 - 1.00 mg/dL [facility] Comment on above: METHOD TRACEABLE TO IDSD STANDARD eGFR (CKD-EPI)non-race dependent 86 - PINF [facility] Comment on above: Reported eGFR is based on the CKD-EPI 2020 equation that does not use a race coefficient. Glucose [Mass/Vol] 147 mg/dL High 65 - 99 mg/dL [facility] Interpretation and review of laboratory results Abnormal [facility] Potassium [Moles/Vol] 3.8 mmol/L 3.5 - 5.0 mmol/L [facility] Sodium [Moles/Vol] 141 mmol/L 134 - 146 mmol/L [facility] Urea nitrogen [Mass/Vol] 14 mg/dL 5 - 27 mg/dL [facility] CBC AND AUTO DIFFon 12-15-19 24 ABSOLUTE BASOPHIL 0.0 X10E9/L Normal 0.0-0.2 [facility] Comment on above: Performed By: #### C MP, CBCA, 1798-8, 58836-9, 5643-2, 3040-3, PINR, 91521-8 #### [facility] ([id number]) [address], [address] [place] [address] ABSOLUTE NEUTROPHIL 6.2 X10E9/L Normal 1.5-6.6 [facility] Comment on above: Performed By: #### C MP, CBCA, 1798-8, 10503-7, 5643-2, 3040-3, PINR, 02362-0 #### [facility] ([id number]) [address], [address] [place] [address] Basophils/100 WBC (Bld) 0.3 % Normal [facility] Comment on above: Performed By: #### C MP, CBCA, 8-8, 37402-9, 5643-2, 3040-3, PINR, 72059-5 #### [facility] ([id number]) [address], [address] [place] [address] Eosinophils (Bld) [#/Vol] 0.0 10*3/uL Normal 0.0-0.4 [facility] Comment on above: Performed By: #### C MP, CBCA, 8-8, 27446-1, 5643-2, 3040-3, PINR, 93402-4 #### [facility] ([id number]) [address], [address] [place] [address] Eosinophils/100 WBC (Bld) 0.6 % Normal [facility] Comment on above: Performed By: #### C MP, CBCA, 8-8, 58642-3, 5643-2, 3040-3, PINR, 22804-0 #### [facility] ([id number]) [address], [address] [place] [address] Erythrocyte distribution width (RBC) [Ratio] 14.0 % Normal 11.5-15.0 [facility] Comment on above: Performed By: #### C MP, CBCA, 8-8, 24936-9, 5643-2, 3040-3, PINR, 32610-9 #### [facility] ([id number]) [address], [address] [place] [address] Hematocrit (Bld) [Volume fraction] 37.1 % Normal 35-47 [facility] Comment on above: Performed By: #### C MP, CBCA, 8-8, 63192-9, 5643-2, 3040-3, PINR, 03124-3 #### [facility] ([id number]) [address], [address] [place] [address] Hemoglobin (Bld) [Mass/Vol] 12.4 g/dL Normal 11.7-15. 5 [facility] Comment on above: Performed By: #### C MP, CBCA, 1797-8, 05694-0, 5643-2, 3040-3, PINR, 75607-5 #### [facility] ([id number]) [address], [address] [place] [address] Lymphocytes (Bld) [#/Vol] 1.0 10*3/uL Normal 1.0-3.5 [facility] Comment on above: Performed By: #### C MP, CBCA, 1797-8, 66786-9, 5643-2, 3040-3, PINR, 94607-8 #### [facility] ([id number]) [address], [address] [place] [address] Lymphocytes/100 WBC (Bld) 12.8 % Normal [facility] Comment on above: Performed By: #### C MP, CBCA, 8-8, 51889-6, 5643-2, 3040-3, PINR, 02403-7 #### [facility] ([id number]) [address], [address] [place] [address] MCH (RBC) [Entitic mass] 30.3 pg Normal 27-34 [facility] Comment on above: Performed By: #### C MP, CBCA, 1798-8, 77537-7, 5643-2, 3040-3, PINR, 67697-6 #### [facility] ([id number]) [address], [address] [place] [address] MCHC (RBC) [Mass/Vol] 33.4 g/dL Normal 32-36 [facility] Comment on above: Performed By: #### C MP, CBCA, 8-8, 33776-7, 5643-2, 3040-3, PINR, 60901-0 #### [facility] ([id number]) [address], [facility] [address] [place] [address] MCV (RBC) [Entitic vol] 91 fL Normal 80-100 [facility] Comment on above: Performed By: #### C MP, CBCA, 1797-8, 00718-9, 5643-2, 3040-3, PINR, [id number] #### [facility] ([id number]) [address], [facility] [address] [place] [address] Monocytes (Bld) [#/Vol] 0.4 10*3/uL Normal 0-0.9 [facility] Comment on above: Performed By: #### C MP, CBCA, 8-8, 40790-0, 5643-2, 3040-3, PINR, 25376-2 #### [facility] ([id number]) [address] [address] [place] [address] Monocytes/100 WBC (Bld) 4.7 % Normal P [facility] Comment on above: Performed By: #### C MP, CBCA, 8-8, 95442-7, 5643-2, 3040-3, PINR, 98990-8 #### [facility] ([id number]) [address], [address] [place] [address] Neutrophils/100 WBC (Bld) 81.6 % Normal [facility] Comment on above: Performed By: #### C MP, CBCA, 1798-8, 02741-0, 5643-2, 3040-3, PINR, 44045-1 #### [facility] ([id number]) [address], [facility] [address] [place] [address] Platelet mean volume (Bld) [Entitic vol] 7.8 fL Normal 7-12 [facility] Comment on above: Performed By: #### C MP, CBCA, 1798-8, 21849-9, 5643-2, 3040-3, PINR, [id number] #### [facility] ([id number]) [address] [address] Platelets (Bld) [#/Vol] 224 10*3/uL Normal 150-450 [facility] Comment on above: Performed By: #### C MP, CBCA, 8-8, 15114-1, 5643-2, 3040-3, PINR, [id number] #### [facility] ([id number]) [address] [address] RBC COUNT 4.10 X10E12/L Normal 3.80-5.20 [facility] Comment on above: Performed By: #### C MP, CBCA, 1798-8, 85400-4, 5643-2, 3040-3, PINR, [id number] #### [facility] ([id number]) [address] [address] [place] [address] WBC (Bld) [#/Vol] 7.5 10*3/uL Normal 4.0-11.0 [facility] Comment on above: Performed By: #### C MP, CBCA, 1798-8, 96090-1, 5643-2, 3040-3, PINR, [id number] #### [facility] ([id number]) [address] [place] [address] CBC auto differentialon 11-17 Basophils (Bld) [#/Vol] 0.0 10*3/uL [facility] Basophils/100 WBC (Bld) 0.3 % [facility] Eosinophils (Bld) [#/Vol] 0.0 10*3/uL [facility] Eosinophils/100 WBC (Bld) 0.6 % [facility] Erythrocyte distribution width (RBC) [Ratio] 14.0 % 11.5 - 15.0 % [facility] Hematocrit (Bld) [Volume fraction] 37.1 % 35 - 47 % [facility] Hemoglobin (Bld) [Mass/Vol] 12.4 g/dL 11.7 - 15.5 g/dL [facility] Lymphocytes (Bld) [#/Vol] 1.0 10*3/uL [facility] Lymphocytes/100 WBC (Bld) 12.8 % [facility] MCH (RBC) [Entitic mass] 30.3 pg 27 - 34 pg [facility] MCHC (RBC) [Mass/Vol] 33.4 g/dL 32 - 3 6 g/dL [facility] MCV (RBC) [Entitic vol] 91 fL 80 - 100 fL [facility] Monocytes (Bld) [#/Vol] 0.4 10*3/uL [facility] Monocytes/100 WBC (Bld) 4.7 % [facility] Neutrophils (Bld) [#/Vol] 6.2 10*3/uL [facility] Neutrophils/100 WBC (Bld) 81.6 % [facility] Platelet mean volume (Bld) [Entitic vol] 7.8 fL 7 - 12 fL [facility] Platelets (Bld) [#/Vol] 224 10*3/uL [facility] RBC (Bld) [#/Vol] 4.10 10*6/uL [facility] WBC corrected for nucl RBC Auto (Bld) [#/Vol] 7.5 [facility] Cardiac echo study Procedure Ordered By: Brennon Walsh on 12-15-2023 Aortic root 2.80 cm [employer] Work Phone: AV mean gradient 3.00 mmHg [facility] Hospital[facility] [employer] [employer] Work Phone: AV peak gradient 5.02 mmHg [employer] Work Phone: AV peak gisell 112.00 cm/s [employer] Work Phone: AV valve area 2.77 cm2 [employer] Work Phone: AV Velocity Ratio 0.98 [employer] Work Phone: AV VTI 30.50 cm [employer] Work Phone: E wave deceleration time 288.00 msec [employer] Work Phone: E/A ratio 0.73 [employer] Work Phone: Energy loss index 3.00 [employer] Work Phone: FS 40 % 28 - 44 % [employer] Work Phone: Interventricular Septum Diastolic Thickness by 2D 9 cm [employer] Work Phone: IVS 0.90 cm 0.6 - 1.1 cm [employer] Work Phone: LA size 3.80 cm [employer] Work Phone: LA Volume Index 14.0 mL/m2 [employer] Work Phone: Left Ventricle Mass 142.68346108471689 g [employer] Work Phone: LV ESV A4C 23.60 mL [employer] Work Phone: LV RWT 2D 51.16 [employer] Work Phone: LVIDd 4.30 cm 3.98 - 5.52 cm [employer] Work Phone: LVIDs 2.60 cm 2.36 - 3.57 cm [employer] Work Phone: LVOT diameter 1.90 cm [facility] [employer] Work Phone: LVOT peak gisell 1.21 m/s [facility] Hospital[facility] Work Phone: LVOT peak VTI 29.80 cm [facility] [employer] Work Phone: LVOT stroke volume 84.49 ml [facility] [employer] Work Phone: MV Peak A Gisell 104.00 cm/s [facility] [employer] Work Phone: MV Peak E Gisell 76.30 cm/s [facility] [employer] Work Phone: MV pressure 1/2 time 84.00 ms [facility] [employer] Work Phone: MV TDI E' (medial) 3.70 cm/s [facility] Work Phone: MV valve area p 1/2 method 2.62 cm2 [facility] Work Phone: PV mean gradient 2.00 mmHg [facility] Hospitaledic a [facility] Work Phone: PV peak gradient 3.37 mmHg [facility] HospitalBiometryCloud a [facility] Work Phone: PW 1.10 cm 0.6 - 1.1 cm [facility] HospitalPoll[facility]ault[facility] Work Phone: RA area 12.0 cm2 [facility] Work Phone: RV diastolic dimension (basal) 32.0 mm [facility] Work Phone: TDI 7.94 cm/s [facility] Work Phone: Valve area - Index 1.6 [facility] Work Phone: ZLVIDD -0.86 [facility] Hospital[facility] Work Phone: ZLVIDS -0.87 [facility] Hospital[facility] Work Phone: [facility] Work Phone: Cardiac echo study Procedure on 12-15-2023 Left Ventricle: Left ventricle appears normal in size. Systolic function is normal with an ejection fraction of 60-65%. Aortic Valve: There is no regurgitation or stenosis. Mitral Valve: There is trace regurgitation. There is no evidence of mitral valve stenosis. Tricuspid Valve: There is trace regurgitation. Left Ventricle Left ventricle appears normal in size. There is mild increased wall thickness/hypertro phy. Systolic function is normal with an ejection fraction of 60-65%. No segmental wall motion abnormalities. Grade I diastolic dysfunction (impaired relaxation) is present. Lateral E' is 7.94 cm/s. Medial E' is 3.70 cm/s. Right Ventricle Right ventricular size appears normal. The right ventricular basal diameter is 32.0 mm. Systolic function is normal. Left Atrium Left atrium is normal in size. Left atrium volume index is normal. The left atrial volume index is 14.0 mL/m2. Right Atrium Right atrium is normal in size. The right atrial area is 12.0 cm2. IVC/SVC IVC is not well visualized. Mitral Valve Mitral valve structure is normal. There is trace regurgitation. There is no evidence of mitral valve stenosis. Tricuspid Valve Tricuspid valve appears to be normal. There is trace regurgitation. Insufficient regurgitant jet to assess right ventricular systolic pressure. Aortic Valve The aortic valve is trileaflet. The leaflets are mildly thickened. There is no regurgitation or stenosis. Pulmonic Valve Pulmonic valve structure is grossly normal. There is trace regurgitation. There is no evidence of pulmonic valve stenosis. The peak gradient is 3.37 mmHg. The mean gradient is 2.00 mmHg. Ascending Aorta The aortic root is normal in size. Pericardium There is no pericardial effusion. Study Details A complete echo was performed using complete 2D, color flow Doppler and spectral Doppler. During the study the apical, parasternal, subcostal and suprasternal views were captured. Definity study was performed. Overall the study quality was poor. The study had technical difficulties. The study was difficult due to patient's poor acoustic windows and respiration. Syncope. [facility] Radiology Study observation (narrative) [facility] Glucose Glucometer (BldC) [M ass/Vol]on 12-15-2023 Glucose [Mass/Vol] 156 mg/dL High 65 - 99 mg/dL [facility] Hospital[facility]OC[facility] Interpretation and review of laboratory results Abnormal [facility] Glucose [Mass/Vol] 156 mg/dL High 65-99 [facility] Glucose [Mass/Vol] 107 mg/dL High 65 - 99 mg/dL [facility] Interpretation and review of laboratory results Abnormal [facility] Glucose [Mass/Vol] 107 mg/dL High 65-99 [facility] Glucose [Mass/Vol] 117 mg/dL High 65 - 99 mg/dL [facility] Interpretation and review of laboratory results Abnormal [facility] Glucose [Mass/Vol] 117 mg/dL High 65-99 [facility] Glucose [Mass/Vol] 118 mg/dL High 65-99 [facility] Interpretation and review of laboratory results Abnormal [facility] ABO Rh Repeaton 12-14-2023 ABO A [facility] Rh Nom (Bld) Positive [facility] AMYLASEon 12-14-2023 Amylase [Catalytic activity/Vol] 38 U/L Normal 28-100 [facility] Comment on above: Performed By: #### C MP, CBCA, 1798-8, 67642-8, 5643-2, 3040-3, PINR, [id number] #### [facility] ([id number]) [address], [address] [place] [address] APTTon 12-14-2023 aPTT Coag (PPP) [Time] 30 s [facility] Amylaseon 12-14-2023 Amylase [Catalytic activity/Vol] 38 U/L 28 - 100 U/L [facility] CBC AND AUTO DIFFon 12-14-19 24 ABSOLUTE BASOPHIL 0.0 X10E9/L Normal 0.0-0.2 [facility] Comment on above: Performed By: #### C MP, CBCA, 1798-8, 20255-6, 5643-2, 3040-3, PINR, [id number] #### [facility] ([id number]) [address], [address] [place] [address] ABSOLUTE NEUTROPHIL 4.1 X10E9/L Normal 1.5-6.6 [facility] Comment on above: Performed By: #### C MP, CBCA, 1798-8, 44501-7, 5643-2, 3040-3, PINR, [id number] #### [facility] ([id number]) [address], [address] [place] [address] Basophils/100 WBC (Bld) 0.5 % Normal [facility] Comment on above: Performed By: #### C MP, CBCA, 1798-8, 30284-6, 5643-2, 3040-3, PINR, [id number] #### [facility] ([id number]) [address] [address] Eosinophils (Bld) [#/Vol] 0.3 10*3/uL Normal 0.0-0.4 [facility] Comment on above: Performed By: #### C MP, CBCA, 8-8, 58312-1, 5643-2, 3040-3, PINR, [id number] #### [facility] ([id number]) [address] [address] [place] [address] Eosinophils/100 WBC (Bld) 4.4 % Normal [facility] Comment on above: Performed By: #### C MP, CBCA, 8-8, 15356-9, 5643-2, 3040-3, PINR, 39193-0 #### [facility] ([id number]) [address] [address] [place] [address] Erythrocyte distribution width (RBC) [Ratio] 14.1 % Normal 11.5-15.0 [facility] Comment on above: Performed By: #### C MP, CBCA, 1798-8, 95194-2, 5643-2, 3040-3, PINR, 34497-0 #### [facility] ([id number]) [address] [address] [place] [address] Hematocrit (Bld) [Volume fraction] 31.6 % Low 35-47 [facility] Comment on above: Performed By: #### C MP, CBCA, 1798-8, 33556-9, 5643-2, 3040-3, PINR, 30167-1 #### [facility] ([id number]) [address], [address] [place] [address] Hemoglobin (Bld) [Mass/Vol] 11.3 g/dL Low 11.7-15. 5 [facility] Comment on above: Performed By: #### C MP, CBCA, 1798-8, 28865-8, 5643-2, 3040-3, PINR, 96921-4 #### [facility] ([id number]) [address], [address] [place] [address] Lymphocytes (Bld) [#/Vol] 2.3 10*3/uL Normal 1.0-3.5 [facility] Comment on above: Performed By: #### C MP, CBCA, 1798-8, 15712-4, 5643-2, 3040-3, PINR, 54726-1 #### [facility] ([id number]) [address], [address] [place] [address] Lymphocytes/100 WBC (Bld) 31.8 % Normal [facility] Comment on above: Performed By: #### C MP, CBCA, 1798-8, 77407-3, 5643-2, 3040-3, PINR, [id number] #### [facility] ([id number]) [address], [address] [place] [address] MCH (RBC) [Entitic mass] 31.6 pg Normal 27-34 [facility] Comment on above: Performed By: #### C MP, CBCA, 1798-8, 11486-8, 5643-2, 3040-3, PINR, 75979-1 #### [facility] ([id number]) [address], [address] [place] [address] MCHC (RBC) [Mass/Vol] 35.7 g/dL Normal 32-36 [facility] Comment on above: Performed By: #### C MP, CBCA, 1798-8, 14319-2, 5643-2, 3040-3, PINR, 46428-8 #### [facility] ([id number]) [address], [address] [place] [address] MCV (RBC) [Entitic vol] 89 fL Normal 80-100 P [facility] Comment on above: Performed By: #### C MP, CBCA, 1798-8, 98492-5, 5643-2, 3040-3, PINR, 76875-4 #### [facility] ([id number]) [address], [address] [place] [address] Monocytes (Bld) [#/Vol] 0.6 10*3/uL Normal 0-0.9 [facility] Comment on above: Performed By: #### C MP, CBCA, 1798-8, 77626-2, 5643-2, 3040-3, PINR, 34130-3 #### [facility] ([id number]) [address], [facility] [address] [place] [address] Monocytes/100 WBC (Bld) 7.7 % Normal [facility] Comment on above: Performed By: #### C MP, CBCA, 1798-8, 40171-0, 5643-2, 3040-3, PINR, 51204-6 #### [facility] ([id number]) [address], [facility] [address] [place] [address] Neutrophils/100 WBC (Bld) 55.6 % Normal [facility] Comment on above: Performed By: #### C MP, CBCA, 1798-8, 53407-8, 5643-2, 3040-3, PINR, 37282-8 #### [facility] ([id number]) [address], [address] [place] [address] Platelet mean volume (Bld) [Entitic vol] 7.2 fL Normal 7-12 [facility] Comment on above: Performed By: #### C MP, CBCA, 1798-8, 43126-1, 5643-2, 3040-3, PINR, 76794-9 #### [facility] ([id number]) [address], [address] [address] Platelets (Bld) [#/Vol] 223 10*3/uL Normal 150-450 [facility] Comment on above: Performed By: #### C MP, CBCA, 8-8, 61451-9, 5643-2, 3040-3, PINR, 72294-8 #### [facility] ([id number]) [address] [address] [place] [address] RBC COUNT 3.57 X10E12/L Low 3.80-5.20 [facility] Comment on above: Performed By: #### C MP, CBCA, 8-8, 28252-1, 5643-2, 3040-3, PINR, [id number] #### [facility] ([id number]) [address], [facility] [address] [place] [address] WBC (Bld) [#/Vol] 7.3 10*3/uL Normal 4.0-11.0 [facility] Comment on above: Performed By: #### C MP, CBCA, 1798-8, 75408-6, 5643-2, 3040-3, PINR, 54238-5 #### [facility] ([id number]) [address], [address] [address] CBC auto differentialon 08-2 -2023 Basophils (Bld) [#/Vol] 0.0 10*3/uL [facility] Basophils/100 WBC (Bld) 0.5 % [facility] Eosinophils (Bld) [#/Vol] 0.3 10*3/uL [facility] Eosinophils/100 WBC (Bld) 4.4 % [facility] Erythrocyte distribution width (RBC) [Ratio] 14.1 % 11.5 - 15.0 % [facility] Hematocrit (Bld) [Volume fraction] 31.6 % Low 35 - 47 % [facility] Hemoglobin (Bld) [Mass/Vol] 11.3 g/dL Low 11.7 - 15.5 g/dL [facility] Interpretation and review of laboratory results Abnormal [facility] Lymphocytes (Bld) [#/Vol] 2.3 10*3/uL [facility] Lymphocytes/100 WBC (Bld) 31.8 % [facility] MCH (RBC) [Entitic mass] 31.6 pg 27 - 34 pg [facility] MCHC (RBC) [Mass/Vol] 35.7 g/dL 32 - 3 6 g/dL [facility] MCV (RBC) [Entitic vol] 89 fL 80 - 100 fL [facility] Monocytes (Bld) [#/Vol] 0.6 10*3/uL [facility] Monocytes/100 WBC (Bld) 7.7 % [facility] Neutrophils (Bld) [#/Vol] 4.1 10*3/uL [facility] Neutrophils/100 WBC (Bld) 55.6 % [facility] Platelet mean volume (Bld) [Entitic vol] 7.2 fL 7 - 12 fL [facility] Platelets (Bld) [#/Vol] 223 10*3/uL [facility] RBC (Bld) [#/Vol] 3.57 10*6/uL Low [facility] WBC corrected for nucl RBC Auto (Bld) [#/Vol] 7.3 [facility] COMPREHENSIVE METABOLIC PANE Xiang 12-14-2023 Albumin [Mass/Vol] 3.5 g/dL Normal 3.2-5.3 [facility] Comment on above: Performed By: #### C MP, CBCA, 1798-8, 26975-4, 5643-2, 3040-3, PINR, 60926-5 #### [facility] ([id number]) [address], [address] [place] [address] ALP [Catalytic activity/Vol] 41 U/L Normal 39-130 [facility] Comment on above: Performed By: #### C MP, CBCA, 1798-8, 28501-0, 5643-2, 3040-3, PINR, 78615-2 #### [facility] ([id number]) [address], [address] [place] [address] ALT [Catalytic activity/Vol] 10 U/L Normal 0-31 [facility] Comment on above: Performed By: #### C MP, CBCA, 1798-8, 82559-7, 5643-2, 3040-3, PINR, 16587-8 #### [facility] ([id number]) [address], [address] [place] [address] Anion gap [Moles/Vol] 6 mmol/L Normal 5-15 [facility] Comment on above: Performed By: #### C MP, CBCA, 1798-8, 35967-0, 5643-2, 3040-3, PINR, 75174-8 #### [facility] ([id number]) [address], [address] [place] [address] AST [Catalytic activity/Vol] 12 U/L Normal 0-41 [facility] Comment on above: Performed By: #### C MP, CBCA, 1798-8, 66450-4, 5643-2, 3040-3, PINR, 27744-6 #### [facility] ([id number]) [address], [address] [place] [address] Bilirubin [Mass/Vol] 0.4 mg/dL Normal 0.3-1.2 [facility] Comment on above: Performed By: #### C MP, CBCA, 1798-8, 58242-5, 5643-2, 3040-3, PINR, 57397-4 #### [facility] ([id number]) [address], [address] [place] [address] Calcium [Mass/Vol] 9.4 mg/dL Normal 8.5-10.5 [facility] Comment on above: Performed By: #### C MP, CBCA, 1798-8, 89421-8, 5643-2, 3040-3, PINR, 18979-8 #### [facility] ([id number]) [address], [address] [place] [address] Chloride [Moles/Vol] 107 mmol/L Normal 98-109 [facility] Comment on above: Performed By: #### C MP, CBCA, 1798-8, 53418-4, 5643-2, 3040-3, PINR, [id number] #### [facility] ([id number]) [address], [address] [place] [address] CO2 [Moles/Vol] 28 mmol/L Normal 22-32 [facility] Comment on above: Performed By: #### C MP, CBCA, 1798-8, 10326-6, 5643-2, 3040-3, PINR, 25719-7 #### [facility] ([id number]) [address], [address] [place] [address] Creatinine [Mass/Vol] 0.63 mg/dL Normal 0.40-1.00 [facility] Comment on above: Result Comment: METH OD TRACEABLE TO IDMS STANDARD Performed By: #### C MP, CBCA, 1798-8, 36028-3, 5643-2, 3040-3, PINR, 23959-7 #### [facility] ([id number]) [address], [address] [place] [address] GFR/1.73 sq M.predicted among non-blacks MDRD (S/P/Bld) [Vol rate/Area] 88 mL/min/{1.73_m2} Normal >59 [facility] Comment on above: Result Comment: Reported eGFR is based on the CKD-EPI 2020 equation that does not use a race coefficient. Performed By: #### C MP, CBCA, 1798-8, 41932-4, 5643-2, 3040-3, PINR, 08184-2 #### [facility] ([id number]) [address], [address] [place] [address] Glucose [Mass/Vol] 103 mg/dL High 65-99 [facility] Comment on above: Performed By: #### C MP, CBCA, 1798-8, 36087-1, 5643-2, 3040-3, PINR, 81040-0 #### [facility] ([id number]) [address], [address] [place] [address] Potassium [Moles/Vol] 4.0 mmol/L Normal 3.5-5.0 [facility] Comment on above: Performed By: #### C MP, CBCA, 1798-8, 25988-6, 5643-2, 3040-3, PINR, 70537-9 #### [facility] ([id number]) [address], [address] [place] [address] Protein [Mass/Vol] 6.3 g/dL Normal 6.0-8.0 [facility] Comment on above: Performed By: #### C MP, CBCA, 1798-8, 73272-1, 5643-2, 3040-3, PINR, 35333-2 #### [facility] ([id number]) [address], [address] [place] [address] Sodium [Moles/Vol] 141 mmol/L Normal 134-146 [facility] Comment on above: Performed By: #### C MP, CBCA, 1798-8, 46379-7, 5643-2, 3040-3, PINR, 88101-3 #### [facility] ([id number]) [address], [address] [place] [address] Urea nitrogen [Mass/Vol] 18 mg/dL Normal - [facility] Comment on above: Performed By: #### C MP, CBCA, 1798-8, 87995-9, 5643-2, 3040-3, PINR, 61036-6 #### [facility] ([id number]) [address], [address] [place] [address] CT BRAIN WO CONTon CT BRAIN WO CONT CT BRAIN WO [...] Otherwise, there are no gross acute changes. 03 Finalized by Efraín Gamble MD on 12/14/2023 10:41 PM Normal [facility] CT BRAIN WO CONT CT BRAIN [...] or depressed calvarial fracture. Intracranial atherosclerosis. Absent [place] lenses. Visualized mastoid air cells are well [...] sensitive for the detection of acute ischemia 38 Finalized by Devendra Cabrera MD on 12/14/2023 3:08 PM [facility] CT Head WO contraston 2023 History: SAH Headache Exam/Technique: CT images of [...] Otherwise, there are no gross acute changes. 03 Finalized by Efraín Gamble MD on 12/14/2023 10:41 PM [facility] - 12/14/2023 History: SAH Headache Exam/Technique: CT images of [...] Otherwise, there are no gross acute changes. 03 Finalized by Efraín Gamble MD on 12/14/2023 10:41 PM [facility] Radiology Study observation (narrative) [facility] CT BRAIN WO CONT: 12/14/2023 PROVIDED HISTORY: [...] or depressed calvarial fracture. Intracranial atherosclerosis. Absent [place] lenses. Visualized mastoid air cells are well [...] sensitive for the detection of acute ischemia 38 Finalized by Devendra Cabrera MD on 12/14/2023 3:08 PM [facility] Devendra Cabrera MD - 12/14/2023 CT BRAIN WO CONT: 12/14/2023 PROVIDED HISTORY: [...] or depressed calvarial fracture. Intracranial atherosclerosis. Absent [place] lenses. Visualized mastoid air cells are well [...] sensitive for the detection of acute ischemia 38 Finalized by Devendra Cabrera MD on 12/14/2023 3:08 PM [facility] Radiology Study observation (narrative) [facility] CT Head WO contrastOrdered B y: Efraín Gamble on 12-14-2023 [facility] Work Phone: CT Head WO contrastOrdered B y: Devendra Cabrera on 12-14-2023 [facility] Work Phone: Comprehensive metabolic pane xiang 12-14-2023 Albumin [Mass/Vol] 3.5 g/dL 3.2 - 5.3 g/dL [facility] ALP [Catalytic activity/Vol] 41 U/L 39 - 130 U/L [facility] ALT No additional P-5'-P [Catalytic activity/Vol] 10 U/L 0 - 31 U/L [facility] Anion gap [Moles/Vol] 6 mmol/L 5 - 15 mmol/L [facility] AST [Catalytic activity/Vol] 12 U/L 0 - 41 U/L [facility] Bilirubin [Mass/Vol] 0.4 mg/dL 0.3 - 1 .2 mg/dL [facility] [facility] Calcium [Mass/Vol] 9.4 mg/dL 8.5 - 10. 5 mg/dL [facility] Chloride [Moles/Vol] 107 mmol/L 98 - 10 9 mmol/L [facility] CO2 [Moles/Vol] 28 mmol/L 22 - 32 mmol/L [facility] Creatinine [Mass/Vol] 0.63 mg/dL 0.40 - 1.00 mg/dL [facility] Comment on above: METHOD TRACEABLE TO [facility] STANDARD eGFR (CKD-EPI)non-race dependent 88 - PINF [facility] Comment on above: Reported eGFR is based on the CKD-EPI 2020 equation that does not use a race coefficient. Glucose [Mass/Vol] 103 mg/dL High 65 - 99 mg/dL [facility] Interpretation and review of laboratory results Abnormal [facility] Potassium [Moles/Vol] 4.0 mmol/L 3.5 - 5.0 mmol/L [facility] Protein [Mass/Vol] 6.3 g/dL 6.0 - 8.0 g/dL [facility] Sodium [Moles/Vol] 141 mmol/L 134 - 146 mmol/L [facility] Urea nitrogen [Mass/Vol] 18 mg/dL 5 - 27 mg/dL [facility] DRUG SCREEN, URINEon 024 AMPHETAMINE/METHAMP Negative Normal NEG [facility] Comment on above: Result Comment: AMPH /METH screening cut off = 1000 ng/mL Performed By: #### C MP, CBCA, 8-8, 43827-0, 5643-2, 3040-3, PINR, 99893-3 #### [facility] ([id number]) [address], [address] [place] [address] BARBITURATES Negative Normal NEG [facility] Comment on above: Result Comment: Marisa iturates screening cut off value = 200 ng/mL Performed By: #### C MP, CBCA, 8-8, 76406-3, 5643-2, 3040-3, PINR, 89173-3 #### [facility] ([id number]) [address], [address] [place] [address] BENZODIAZEPINES Negative Normal NEG [facility] Comment on above: Result Comment: Pedro odiazepines screening cut off value = 200 ng/mL Performed By: #### C MP, CBCA, 1798-8, 32966-1, 5643-2, 3040-3, PINR, 23919-4 #### [facility] ([id number]) [address], [address] [place] [address] CANNABINOIDS Negative Normal NEG [facility] Comment on above: Result Comment: Rahel abinoids/THC screening cut off value = 50 ng/mL Performed By: #### C MP, CBCA, 1798-8, 08690-8, 5643-2, 3040-3, PINR, 77514-8 #### [facility] ([id number]) [address], [address] [place] [address] COCAINE METABOLITE Negative Normal NEG [facility] Comment on above: Result Comment: Coca ine screening cut off value = 300 ng/mL Performed By: #### C MP, CBCA, 1798-8, 54560-3, 5643-2, 3040-3, PINR, 52422-7 #### [facility] ([id number]) [address], [address] [place] [address] ECSTASY Negative Normal NEG [facility] Comment on above: Result Comment: Ecst asy screening cut off value = 500 ng/mL This report is intended for use in clinical monitoring or management of patients. Performed By: #### C MP, CBCA, 1798-8, 40615-0, 5643-2, 3040-3, PINR, 13938-2 #### [facility] ([id number]) [address], [address] [place] [address] METHADONE Negative Normal NEG [facility] Comment on above: Result Comment: Meth adone screening cut off value = 300 ng/mL. Performed By: #### C MP, CBCA, 1798-8, 66738-0, 5643-2, 3040-3, PINR, 40381-3 #### [facility] ([id number]) [address] [place] [address] OPIATES Negative Normal NEG [facility] Comment on above: Result Comment: Opia marina screening cut off value = 300 ng/mL NOTE: This test is used for the detection of codeine, hydrocodone (>1000 ng/mL), morphine and hydromorphone (>900 ng/mL) in urine. Performed By: #### C MP, CBCA, 1798-8, 54628-9, 5643-2, 3040-3, PINR, 88984-2 #### [facility] ([id number]) [address] [facility], [address] [place] [address] OXYCODONE Negative Normal NEG [facility] Comment on above: Result Comment: Oxyc odone screening cut off value = 300 ng/mL NOTE: This test is used for the detection of oxycodone and oxymorphone in urine. Performed By: #### C MP, CBCA, 1798-8, 23763-2, 5643-2, 3040-3, PINR, 21365-0 #### [facility] ([id number]) [address] [facility], [address] [place] [address] PHENCYCLIDINE Negative Normal NEG [facility] Comment on above: Result Comment: Phen cyclidine screening cut off value = 25 ng/mL Performed By: #### C MP, CBCA, 1798-8, 22014-1, 5643-2, 3040-3, PINR, 71990-8 #### [facility] ([id number]) [address] [place] [address] Drug Screen, Urineon 024 Amphetamines Screen method >1000 ng/mL Ql (U) Negative Negative^N egative [facility] Comment on above: AMPH/METH screening cut off = 1000 ng/mL Barbiturates Screen Ql (U) Negative N egative^N egative [facility] Comment on above: Barbiturates screeni ng cut off value = 200 ng/mL Benzodiazepines Ql (U) Negative Negat torie^N egative [facility] Comment on above: Benzodiazepines scre ening cut off value = 200 ng/mL Cocaine Ql (U) Negative Negative^N [facility] Comment on above: Cocaine screening cu t off value = 300 ng/mL Methadone Screen Ql (U) Negative Nega tive^N [facility] Comment on above: Methadone screening cut off value = 300 ng/mL. Methylenedioxymethamphetami ne Screen Ql (U) Negative Negative^N [facility] Comment on above: Ecstasy screening cu t off value = 500 ng/mL This report is intended for use in clinical monitoring or management of patients. Opiates Screen Ql (U) Negative Negati ve^N [facility] Comment on above: Opiates screening cu t off value = 300 ng/mL NOTE: This test is used for the detection of codeine, hydrocodone (>1000 ng/mL), morphine and hydromorphone (>900 ng/mL) in urine. oxyCODONE Ql (U) Negative Negative^N [facility] Comment on above: Oxycodone screening cut off value = 300 ng/mL NOTE: This test is used for the detection of oxycodone and oxymorphone in urine. Phencyclidine Screen method >25 ng/mL Ql (U) Negative Negative^N [facility] Comment on above: Phencyclidine screen ing cut off value = 25 ng/mL Tetrahydrocannabinol Screen method >50 ng/mL Ql (U) Negative Negative^N [facility] Comment on above: Cannabinoids/THC scr eening cut off value = 50 ng/mL [facility] ETHANOLon 12-14-2023 Ethanol [Mass/Vol] mg/dL Normal 0.00-0.08 [facility] Comment on above: Result Comment: This report is intended for use in clinical monitoring or management of patients. Performed By: #### C MP, CBCA, 1798-8, 23011-9, 5643-2, 3040-3, PINR, 83572-3 #### [facility] ([id number]) [address] [place] [address] Ethanolon 12-14-2023 Ethanol [Mass/Vol] g/dL 0.00 - 0.08 g/dL [facility] Comment on above: This report is intended for use in clinical monitoring or management of patients. Ethanol [Mass/Vol]on 024 [facility] Fibrinogenon 12-14-2023 Fibrinogen Coagulation.derived (PPP) [Mass/Vol] 347 mg/dL 190 - 480 mg/dL [facility] Fibrinogen Coagulation.deriv ed (PPP) [Mass/Vol]on 12-14-2023 FIBRINOGEN 347 mg/dL Normal 190-480 [facility] Comment on above: Performed By: #### C MP, CBCA, 1798-8, 91941-6, 5643-2, 3040-3, PINR, 49061-2 #### [facility] ([id number]) [address] [place] [address] [address] [place] [address] Glucose Glucometer (BldC) [M ass/Vol]on 12-14-2023 Glucose [Mass/Vol] 111 mg/dL High 65 - 99 mg/dL [facility] Interpretation and review of laboratory results Abnormal [facility] Glucose [Mass/Vol] 111 mg/dL High 65-99 [facility] Glucose [Mass/Vol] 99 mg/dL 65 - 99 mg/dL [facility] Glucose [Mass/Vol] 99 mg/dL Normal 65-99 [facility] Glucose [Mass/Vol] 132 mg/dL High 65 - 99 mg/dL [facility] Interpretation and review of laboratory results Abnormal [facility] Glucose [Mass/Vol] 132 mg/dL High 65-99 [facility] Glucose [Mass/Vol] 110 mg/dL High 65 - 99 mg/dL [facility] Interpretation and review of laboratory results Abnormal [facility] Glucose [Mass/Vol] 110 mg/dL High 65-99 [facility] LIPASEon 12-14-2023 Lipase [Catalytic activity/Vol] 45 U/L Normal 11-82 [facility] Comment on above: Performed By: #### C MP, CBCA, 1798-8, 84812-7, 5643-2, 3040-3, PINR, 46469-2 #### [facility] ([id number]) [address], [address] [place] [address] Lipaseon 12-14-2023 Lipase [Catalytic activity/Vol] 45 U/L 11 - 82 U/L [facility] No Panel Informationon 12-13 [facility] PROTIME AND INRon 12-14-2023 INR Coag (PPP) [Relative time] 0.9 {INR} Normal 0.8-1.1 [facility] Comment on above: Performed By: #### C MP, CBCA, 8-8, 02615-6, 5643-2, 3040-3, PINR, 48547-0 #### [facility] ([id number]) [address], [address] [place] [address] PT Coag (PPP) [Time] 10.2 s Normal 9.8-13.2 [facility] Comment on above: Performed By: #### C MP, CBCA, 1797-8, 74562-8, 5643-2, 3040-3, PINR, 30497-5 #### [facility] ([id number]) [address] [place] [address] Protime & INRon 12-14-2023 INR Coag (PPP) [Relative time] 0.9 {INR} [facility] PT Coag (PPP) [Time] 10.2 s [facility] Troponin I, High Sensitivity 3 Houron 12-14-2023 Troponin I.cardiac High sensitivity method [Mass/Vol] 7 ng/L NINF - 16 ng/L [facility] Troponin I.cardiac High sens itivity method [Mass/Vol]on 12-14-2023 [facility] 3 HOUR TROP I, HIGH SENSITIVITY 7 ng/L Normal <16 [facility] Comment on above: Performed By: #### C MP, CBCA, 1798-8, 86519-1, 5643-2, 3040-3, PINR, 83539-1 #### [facility] ([id number]) [address], [address] [place] [address] Type and screen(includes ind irect med)on 12-14-2023 ABO A [facility] Rh Nom (Bld) Positive [facility] URINALYSISon 12-14-2023 Bilirubin Ql (U) Negative Normal NEG [facility] Comment on above: Performed By: #### C MP, CBCA, 1798-8, 70047-1, 5643-2, 3040-3, PINR, 96391-8 #### [facility] ([id number]) [address], [address] [place] [address] BLOOD/HGB Negative Normal NEG [facility] Comment on above: Performed By: #### C MP, CBCA, 1798-8, 09533-8, 5643-2, 3040-3, PINR, 37708-6 #### [facility] ([id number]) [address], [address] [place] [address] Color (U) YELLOW Normal YELLOW [facility] Comment on above: Performed By: #### C MP, CBCA, 1798-8, 19141-3, 5643-2, 3040-3, PINR, 23661-8 #### [facility] ([id number]) [address], [address] [place] [address] Glucose Ql (U) Negative Normal NEG [facility] Comment on above: Performed By: #### C MP, CBCA, 1798-8, 03440-5, 5643-2, 3040-3, PINR, 93892-5 #### [facility] ([id number]) [address], [address] [place] [address] Ketones Ql (U) Negative Normal NEG [facility] Comment on above: Performed By: #### C MP, CBCA, 1798-8, 65701-5, 5643-2, 3040-3, PINR, 13630-9 #### [facility] ([id number]) [address] [address] Leukocyte esterase Test strip Ql (U) Negative Normal NEG [facility] Comment on above: Performed By: #### C MP, CBCA, 1798-8, 28251-9, 5643-2, 3040-3, PINR, 97408-5 #### [facility] ([id number]) [address] [address] Nitrite Ql (U) Negative Normal NEG [facility] Comment on above: Performed By: #### C MP, CBCA, 1798-8, 66241-6, 5643-2, 3040-3, PINR, 99849-2 #### [facility] ([id number]) [address] [address] pH (U) 6.5 [pH] Normal 5.0-8.5 [facility] Comment on above: Performed By: #### C MP, CBCA, 1798-8, 03753-8, 5643-2, 3040-3, PINR, 78587-9 #### [facility] ([id number]) [address] [address] Protein Ql (U) Negative Normal NEG [facility] Comment on above: Performed By: #### C MP, CBCA, 1798-8, 24030-1, 5643-2, 3040-3, PINR, 15681-0 #### [facility] ([id number]) [address] [address] Specific gravity (U) [Rel density] 1.008 Normal 1.003-1.03 5 [facility] Comment on above: Performed By: #### C MP, CBCA, 1798-8, 73480-3, 5643-2, 3040-3, PINR, 64311-3 #### [facility] ([id number]) [address], [address] [address] TURBIDITY CLEAR Normal CLEAR [facility] Comment on above: Performed By: #### C MP, CBCA, 1798-8, 24240-0, 5643-2, 3040-3, PINR, 86899-8 #### [facility] ([id number]) [address], [address] [address] Urinalysis dipstick W Reflex Microscopic panel (U) URINE RECEIVED WITHOUT PRESERVATIVE-DELAY S IN TRANSPORT MAY AFFECT RESULTS.INTERPRET WITH CAUTION AND CLINICAL CORRELATION IS RECOMMENDED. Normal [facility] Comment on above: Performed By: #### C MP, CBCA, 1798-8, 55409-4, 5643-2, 3040-3, PINR, 76190-7 #### [facility] ([id number]) [address], [address] [address] Urobilinogen (U) [Mass/Vol] mg/dL Normal <1.1 [facility] Comment on above: Performed By: #### C MP, CBCA, 1798-8, 58395-9, 5643-2, 3040-3, PINR, 18202-8 #### [facility] ([id number]) [address], [address] [address] Urinalysison 12-14-2023 Bilirubin Ql (U) Negative Negative^N egative [facility] Color (U) YELLOW YELLOW^YEL LOW [facility] Glucose (U) [Mass/Vol] Negative Negat torie^N egative mg/dL [facility] Hemoglobin Auto test strip Ql (U) Negative Negative^N egative [facility] Ketones (U) [Mass/Vol] Negative Negat torie^N egative mg/dL [facility] Leukocyte esterase Auto test strip Ql (U) Negative Negative^N egative [facility] Nitrite Auto test strip Ql (U) Negative Negative^N egative [facility] pH (U) 6.5 [pH] 5.0 - 8.5 [facility] Protein (U) [Mass/Vol] Negative Negat torie^N egative mg/dL [facility] Specific gravity Refractometry automated (U) [Rel density] 1.008 1.003 - 1.035 [facility] Turbidity Ql (U) CLEAR CLEAR^CAL R [facility] Urinalysis microscopic panel Auto (Urine sed) [#/Area] URINE RECEIVED WITHOUT PRESERVATIVE-DELAY S IN TRANSPORT MAY AFFECT RESULTS.INTERPRET WITH CAUTION AND CLINICAL CORRELATION IS RECOMMENDED. [facility] Urobilinogen Qn (U) NINF [facility] XR CHEST 1 VWon 12-14-2023 XR CHEST 1 VW XR CHEST 1 VW Clinical History: Trauma. Portable Upright chest: 12/14/2023 Comparison: None Findings: A single portable view of the chest was obtained. Is mild cardiac prominence. Pulmonary vessels are not enlarged. No pneumothorax or focal infiltrate is evident. There is no visible pleural effusion. IMPRESSION: No acute infiltrate. 54 Finalized by Vel Herrmann MD on 12/14/2023 5:25 AM Normal [facility] XR Chest Single viewon 12-13 Clinical History: Trauma. Portable Upright chest: 12/14/2023 Comparison: None Findings: A single portable view of the chest was obtained. Is mild cardiac prominence. Pulmonary vessels are not enlarged. No pneumothorax or focal infiltrate is evident. There is no visible pleural effusion. IMPRESSION: No acute infiltrate. 54 Finalized by Vel Herrmann MD on 12/14/2023 5:25 AM [facility] - 12/14/2023 Clinical History: Trauma. Portable Upright chest: 12/14/2023 Comparison: None Findings: A single portable view of the chest was obtained. Is mild cardiac prominence. Pulmonary vessels are not enlarged. No pneumothorax or focal infiltrate is evident. There is no visible pleural effusion. IMPRESSION: No acute infiltrate. 54 Finalized by Vel Herrmann MD on 12/14/2023 5:25 AM [facility] Study observation (narrative) [facility] XR Chest Single viewOrdered By: Vel Herrmann on 12-14-2023 [facility] Work Phone: aPTT Coag (PPP) [Time]on aPTT Coag (Bld) [Time] 30 s Normal 26-37 [facility] Comment on above: Performed By: #### C MP, CBCA, 1798-8, 18126-3, 5643-2, 3040-3, PINR, 33387-2 #### [facility] ([id number]) [address] [place] [address], [address] [place] [address] LIPID PROFILEon 04-28-2022 CHOL-HDL RATIO NORM SEE BELOW Normal [facility] Comment on above: Result Comment: 3.3 - 4.4 LOW RISK 4.4 - 7.1 AVERAGE RISK 7.1 - 11.0 MODERATE RISK >11.0 HIGH RISK Performed By: #### L IPID, LIVER #### [facility] [address] [address] [address] Dora Mora Cholesterol [Mass/Vol] 199 mg/dL Normal <=200 Th [facility] Comment on above: Performed By: #### L IPID, LIVER #### [facility] [address] [address] [address] Dora Mora Cholesterol in HDL [Mass/Vol] 75 mg/dL Critically high 40-60 [facility] Comment on above: Performed By: #### L IPID, LIVER #### [facility] [address] [address] [address] Dora Mora Cholesterol in LDL [Mass/Vol] 86.2 mg/dL Normal [facility] Comment on above: Performed By: #### L IPID, LIVER #### [facility] [address] [address] [address] Dora Mora Cholesterol.total/Cholester ol in HDL [Mass ratio] 2.7 {ratio} Normal [facility] Comment on above: Performed By: #### L IPID, LIVER #### [facility] [address] [address] [address] Dora Mora HDL NORMAL > or = 60 mg/dl - LOW CARDIOVASCULAR RISK <40 mg/dl - HIGH CARDIOVASCULAR RISK Normal [facility] Comment on above: Performed By: #### L IPID, LIVER #### [facility] [address] [address] [address] Dora Mora LDL CALC NORMAL SEE BELOW Normal [facility] Comment on above: Result Comment: <100 mg/dl OPTIMAL 100 - 129 mg/dl NEAR OR ABOVE OPTIMAL 130 - 159 mg/dl BORDERLINE HIGH 160 - 189 mg/dl HIGH >190 mg/dl VERY HIGH Performed By: #### L IPID, LIVER #### [facility] [address] [address] [address] Dora Mora Triglyceride [Mass/Vol] 189 mg/dL Critically high <=150 [facility] Comment on above: Performed By: #### L IPID, LIVER #### [facility] [address] [place] [address] Dr. Dora Mora VLDL CALC 37.8 mg/dL Normal [facility] Comment on above: Performed By: #### L IPID, LIVER #### [facility] [address] [place] [address] Dr. Dora Mora LIVER PROFILEon 04-28-2022 Albumin [Mass/Vol] 3.7 g/dL Normal 3.4-5.0 [facility] Comment on above: Performed By: #### L IPID, LIVER #### [facility] [address] [address] [address] Dora Mora Albumin/Globulin [Mass ratio] 1.0 {ratio} Normal [facility] Comment on above: Performed By: #### L IPID, LIVER #### [facility] [address] [address] [address] Dora Mora ALP [Catalytic activity/Vol] 62 U/L Normal 46-116 [facility] Comment on above: Performed By: #### L IPID, LIVER #### [facility] [address] [address] [address] Dora Mora ALT [Catalytic activity/Vol] 18 U/L Normal 14-59 [facility] Comment on above: Performed By: #### L IPID, LIVER #### [facility] [address] [address] [address] Dora Mora AST [Catalytic activity/Vol] 19 U/L Normal 15-37 [facility] Comment on above: Performed By: #### L IPID, LIVER #### [facility] [address] [address] [address] Dora Mora BILI, CONJUGATED 0.1 mg/dL Normal 0.0-0.2 [facility] Comment on above: Performed By: #### L IPID, LIVER #### [facility] [address] [address] [address] Dora Mora Bilirubin [Mass/Vol] 0.5 mg/dL Normal 0.2-1.0 [facility] Comment on above: Performed By: #### L IPID, LIVER #### [facility] [address] [address] [address] Dora Mora Globulin (S) [Mass/Vol] 3.7 g/dL Normal T [facility] Comment on above: Performed By: #### L IPID, LIVER #### [facility] [address] [address] [address] Dora Mora Protein [Mass/Vol] 7.4 g/dL Normal 6.4-8.2 [facility] Comment on above: Performed By: #### L IPID, LIVER #### [facility] [address] [address] [address] Dora Mora XR KUB 1 VIEWon [...] SHEMAR ARELLANO Date: 2022-03-22 12:08 Normal [facility] INSULINon 01-21-2022 Insulin 16.5 uIU/mL Normal 2.6-24.9 [facility] Comment on above: Performed By: #### I NSULIN #### [facility] [address] [place] [address] Dr. Dora Mora CBC AUTO DIFFon 01-20-2022 BASO # 0.0 103/ul Normal 0.0-0.1 [facility] Comment on above: Performed By: #### L IPID, LIVER #### [facility] [address] [place] [address] Dr. Dora Mora Basophils/100 WBC (Bld) 0.5 % Normal 0.2-2.0 [facility] Comment on above: Performed By: #### L IPID, LIVER #### [facility] [address] [place] [address] Dr. Dora Mora EO # 0.2 103/ul Normal 0.0-0.7 [facility] Comment on above: Performed By: #### L IPID, LIVER #### [facility] [address] [place] [address] Dr. Dora Mora Eosinophils/100 WBC (Bld) 2.4 % Normal 0.9-7.0 [facility] Comment on above: Performed By: #### L IPID, LIVER #### [facility] [address] [place] [address] Dr. Dora Mora Erythrocyte distribution width (RBC) [Ratio] 12.9 % Normal 11.0-15.0 [facility] Comment on above: Performed By: #### L IPID, LIVER #### [facility] [address] [place] [address] Dr. Dora Mora Hematocrit (Bld) [Volume fraction] 39.9 % Normal 36.0-48.0 [facility] Comment on above: Performed By: #### L IPID, LIVER #### [facility] [address] [address] [address] Dora Mora Hemoglobin (Bld) [Mass/Vol] 13.4 g/dL Normal 12.0-16. 0 [facility] Comment on above: Performed By: #### L IPID, LIVER #### [facility] [address] [place] [address] Dr. Dora Mora IG # 0.07 10e3/ul Critically high 0.00-0.03 [facility] Comment on above: Performed By: #### L IPID, LIVER #### [facility] [address] [place] [address] Dr. Dora Mora IG % 0.9 % Critically high 0.0-0.5 [facility] Comment on above: Performed By: #### L IPID, LIVER #### [facility] [address] [place] [address] Dr. Dora Mora LYMPH # 2.5 103/ul Normal 1.2-3.8 [facility] Comment on above: Performed By: #### L IPID, LIVER #### [facility] [address] [place] [address] Dr. Dora Mora Lymphocytes/100 WBC (Bld) 32.4 % Normal 20.5-60.0 [facility] Comment on above: Performed By: #### L IPID, LIVER #### [facility] [address] [place] [address] Dr. Dora Mora MANUAL DIFF REQ NO Normal [facility] Comment on above: Performed By: #### L IPID, LIVER #### [facility] [address] [place] [address] Dr. Dora Mora MCH (RBC) [Entitic mass] 30.1 pg Normal 26.7-34.0 [facility] Comment on above: Performed By: #### L IPID, LIVER #### [facility] [address] [place] [address] Dr. Dora Mora MCHC (RBC) [Mass/Vol] 33.6 g/dL Normal 29.9-35.2 [facility] Comment on above: Performed By: #### L IPID, LIVER #### [facility] [address] [place] [address] Dr. Dora Mora MCV (RBC) [Entitic vol] 89.7 fL Normal 81.0-99.0 [facility] Comment on above: Performed By: #### L IPID, LIVER #### [facility] [address] [place] [address] Dr. Dora Mora MONO # 0.5 103/ul Normal 0.3-0.8 [facility] Comment on above: Performed By: #### L IPID, LIVER #### [facility] [address] [place] [address] Dr. Dora Mora Monocytes/100 WBC (Bld) 6.5 % Normal 1.7-12.0 [facility] Comment on above: Performed By: #### L IPID, LIVER #### [facility] [address] [place] [address] Dr. Dora Mora NEUT # 4.3 103/ul Normal 1.4-6.5 [facility] Comment on above: Performed By: #### L IPID, LIVER #### [facility] [address] [place] [address] Dr. Dora Mora Neutrophils/100 WBC (Bld) 57.3 % Normal 43.0-75.0 [facility] Comment on above: Performed By: #### L IPID, LIVER #### [facility] [address] [place] [address] Dr. Dora Mora Platelet mean volume (Bld) [Entitic vol] 9.2 fL Critically low 9.5-13.5 [facility] Comment on above: Performed By: #### L IPID, LIVER #### [facility] [address] [place] [address] Dr. Dora Mora PLT 261 103/ul Normal 150-450 [facility] Comment on above: Performed By: #### L IPID, LIVER #### [facility] [address] [place] [address] Dr. Dora Mora RBC 4.45 106/ul Normal 4.20-5.40 [facility] Comment on above: Performed By: #### L IPID, LIVER #### [facility] [address] [place] [address] Dr. Dora Mora WBC 7.6 103/ul Normal 4.0-11.0 [facility] Comment on above: Performed By: #### L IPID, LIVER #### [facility] [address] [place] [address] Dr. Dora Mora FREE THYROXINE INDEX T7on FTI 2.93 Normal 1.30-4.50 [facility] Comment on above: Performed By: #### C MP, TSH, T7, LIPID #### [facility] [address] [place] [address] Dr. Dora Mora T3U 38.0 % Normal 30.0-39.0 [facility] Comment on above: Performed By: #### C MP, TSH, T7, LIPID #### [facility] [address] [place] [address] Dr. Dora Mora T4 [Mass/Vol] 7.70 ug/dL Normal 4.80-13.90 [facility] Comment on above: Performed By: #### C MP, TSH, T7, LIPID #### [facility] [address] [place] [address] Dr. Dora Mora GLYCOHEMOGLOBIN A1Con 2021 ADA RECOMMENDATION SEE BELOW Normal [facility] Comment on above: Result Comment: ADA RECOMMENDED LIMIT 4.0 - 6.0 ADA THERAPEUTIC TARGET < 7.0 ACTION SUGGESTED > 7.0 Performed By: #### A 1C #### [facility] [address] [place] [address] Dr. Dora Mora Glucose [Mass/Vol] 148 mg/dL Normal [facility] Comment on above: Performed By: #### A 1C #### [facility] [address] [place] [address] Dr. Dora Mora HbA1c (Bld) [Mass fraction] 6.8 % Critically high 4.5 -6.2 [facility] Comment on above: Performed By: #### A 1C #### [facility] [address] [address] [address] Dora Mora IRONon 01-20-2022 Iron [Mass/Vol] 88.0 ug/dL Normal 50.0-170.0 [facility] Comment on above: Performed By: #### I ROMAN CABEZASAD #### [facility] [address] [address] [address] Dora Mora LIPID PROFILEon 01-20-2022 CHOL-HDL RATIO NORM SEE BELOW Normal [facility] Comment on above: Result Comment: 3.3 - 4.4 LOW RISK 4.4 - 7.1 AVERAGE RISK 7.1 - 11.0 MODERATE RISK >11.0 HIGH RISK Performed By: #### L IPID, LIVER #### [facility] [address] [address] [address] Dora Mora Cholesterol [Mass/Vol] 180 mg/dL Normal <=200 [facility] Comment on above: Performed By: #### L IPID, LIVER #### [facility] [address] [address] [address] oDra Mora Cholesterol in HDL [Mass/Vol] 64 mg/dL Critically high 40-60 [facility] Comment on above: Performed By: #### L IPID, LIVER #### [facility] [address] [address] [address] Dora Mora Cholesterol in LDL [Mass/Vol] 55.4 mg/dL Normal [facility] Comment on above: Performed By: #### L IPID, LIVER #### [facility] [address] [address] [address] Dora Mora Cholesterol.total/Cholester ol in HDL [Mass ratio] 2.8 {ratio} Normal [facility] Comment on above: Performed By: #### L IPID, LIVER #### [facility] [address] [place] [address] Dr. Dora Mora HDL NORMAL > or = 60 mg/dl - LOW CARDIOVASCULAR RISK <40 mg/dl - HIGH CARDIOVASCULAR RISK Normal [facility] Comment on above: Performed By: #### L IPID, LIVER #### [facility] [address] [place] [address] Dr. Dora Mora LDL CALC NORMAL SEE BELOW Normal [facility] Comment on above: Result Comment: <100 mg/dl OPTIMAL 100 - 129 mg/dl NEAR OR ABOVE OPTIMAL 130 - 159 mg/dl BORDERLINE HIGH 160 - 189 mg/dl HIGH >190 mg/dl VERY HIGH Performed By: #### L IPID, LIVER #### [facility] [address] [address] [address] Dora Mora Triglyceride [Mass/Vol] 303 mg/dL Critically high <=150 [facility] Comment on above: Performed By: #### L IPID, LIVER #### [facility] [address] [address] [address] Dora Mora VLDL CALC 60.6 mg/dL Normal [facility] Comment on above: Performed By: #### L IPID, LIVER #### [facility] [address] [place] [address] Dr. Dora Mora PROF 14(COMP METB)on 022 Albumin [Mass/Vol] 3.4 g/dL Normal 3.4-5.0 [facility] Comment on above: Performed By: #### C MP, TSH, T7, LIPID #### [facility] [address] [address] [address] Dora Mora Albumin/Globulin [Mass ratio] 0.9 {ratio} Normal [facility] Comment on above: Performed By: #### C MP, TSH, T7, LIPID #### [facility] [address] [address] [address] Dora Mora ALP [Catalytic activity/Vol] 61 U/L Normal 46-116 [facility] Comment on above: Performed By: #### C MP, TSH, T7, LIPID #### [facility] [address] [address] [address] Dora Mora ALT [Catalytic activity/Vol] 22 U/L Normal 14-59 [facility] Comment on above: Performed By: #### C MP, TSH, T7, LIPID #### [facility] [address] [address] [address] Dora Mora Anion gap [Moles/Vol] 10.9 mmol/L Normal [facility] Comment on above: Performed By: #### C MP, TSH, T7, LIPID #### [facility] [address] [address] [address] Dora Mora AST [Catalytic activity/Vol] 13 U/L Critically low 15-37 [facility] Comment on above: Performed By: #### C MP, TSH, T7, LIPID #### [facility] [address] [address] [address] Dora Mora Bilirubin [Mass/Vol] 0.6 mg/dL Normal 0.2-1.0 [facility] Comment on above: Performed By: #### C MP, TSH, T7, LIPID #### [facility] [address] [address] [address] Dora Mora Calcium [Mass/Vol] 9.4 mg/dL Normal 8.5-10.1 [facility] Comment on above: Performed By: #### C MP, TSH, T7, LIPID #### [facility] [address] [place] [address] Dr. Dora Mora Chloride [Moles/Vol] 103 mmol/L Normal 98-107 [facility] Comment on above: Performed By: #### C MP, TSH, T7, LIPID #### [facility] [address] [place] [address] Dr. Dora Mora CO2 [Moles/Vol] 28.6 mmol/L Normal 21.0-32.0 [facility] Comment on above: Performed By: #### C MP, TSH, T7, LIPID #### [facility] [address] [place] [address] Dr. Dora Mora Creatinine [Mass/Vol] 0.86 mg/dL Normal 0.55-1.02 [facility] Comment on above: Performed By: #### C MP, TSH, T7, LIPID #### [facility] [address] [place] [address] Dr. Dora Mora EGFR-AF BELGIAN >60 Normal >=60 [facility] Comment on above: Performed By: #### C MP, TSH, T7, LIPID #### [facility] [address] [address] [address] Dora Mora EGFR-NON AF BELGIAN >60 Normal >=60 [facility] Comment on above: Performed By: #### C MP, TSH, T7, LIPID #### [facility] [address] [address] [address] Dora Mora Globulin (S) [Mass/Vol] 3.6 g/dL Normal [facility] Comment on above: Performed By: #### C MP, TSH, T7, LIPID #### [facility] [address] [address] [address] Dora Mora Glucose [Mass/Vol] 167 mg/dL Critically high 74-106 [facility] Comment on above: Performed By: #### C MP, TSH, T7, LIPID #### [facility] [address] [address] [address] Dora Mora Potassium [Moles/Vol] 4.5 mmol/L Normal 3.5-5.1 [facility] Comment on above: Performed By: #### C MP, TSH, T7, LIPID #### [facility] [address] [address] [address] Dora Mora Protein [Mass/Vol] 7.0 g/dL Normal 6.4-8.2 [facility] Comment on above: Performed By: #### C MP, TSH, T7, LIPID #### [facility] [address] [address] [address] Dora Mora Sodium [Moles/Vol] 138 mmol/L Normal 136-145 [facility] Comment on above: Performed By: #### C MP, TSH, T7, LIPID #### [facility] [address] [address] [address] Dora Mora Urea nitrogen [Mass/Vol] 20.0 mg/dL Critically high 7.0-18 .0 [facility] Comment on above: Performed By: #### C MP, TSH, T7, LIPID #### [facility] [address] [address] [address] Dora Mora Urea nitrogen/Creatinine [Mass ratio] 23.3 mg/mg Normal [facility] Comment on above: Performed By: #### C MP, TSH, T7, LIPID #### [facility] [address] [place] [address] Dr. Dora Mora TSHon 01-20-2022 TSH 1.657 uIU/mL Normal 0.358-3.74 0 [facility] Comment on above: Performed By: #### C MP, TSH, T7, LIPID #### [facility] [address] [place] [address] Dr. Dora Mora VITAMIN D 25 OHon 01-20-2022 VIT D 25-OH 96.7 ng/mL Normal [facility] Comment on above: Performed By: #### I JOCELYNN, VITAD #### [facility] [address] [place] [address] Dr. Dora Mora VIT D RANGES SEE BELOW Normal [facility] Comment on above: Result Comment: <20 ng/mL Vit D deficient 20 - <30 ng/mL Vit D insufficient 30 - 100 ng/mL Vit D sufficient >100 ng/mL Potential Toxicity Performed By: #### I JOCELYNN, VITAD #### [facility] [address] [place] [address] Dr. Dora Mora Vital Signs Date Time Vital Sign Value Performing Clinician Nithin bhatti 04-02-2024 09:58-0500 Blood Pressure Location Ruiz DEVINE [facility] 04-02-2024 09:58-0500 Body temperature 98.6 [degF] Ruiz DEVINE [facility] 04-02-2024 09:58-0500 Diastolic blood pressure 58 mm[Hg] Ruiz DEVINE [facility] 04-02-2024 09:58-0500 Heart rate 61 /min Ruiz DEVINE [facility] 04-02-2024 09:58-0500 Respiratory rate 16 /min Ruiz DEVINE [facility] 04-02-2024 09:58-0500 Systolic blood pressure 124 mm[Hg] Ruiz DEVINE [facility] 12-20-2023 11:12-0400 Diastolic blood pressure 58 mm[Hg] Kyle Horton MD Work Phone: [facility] 12-20-2023 11:12-0400 Heart rate 70 /min Kyle Horton MD Work Phone: [facility] 12-20-2023 11:12-0400 Respiratory rate 24 /min Kyle Horton MD Work Phone: [facility] 12-20-2023 11:12-0400 Systolic blood pressure 115 mm[Hg] Kyle Horton MD Work Phone: [facility] 12-20-2023 11:11-0400 Body temperature 97.2 [degF] Kyle Horton MD Work Phone: [facility] 12-20-2023 07:52-0400 SaO2% (BldA) [Mass fraction] 95 % Kyle Horton MD Work Phone: [facility] 12-15-2023 01:36-0400 Body mass index (BMI) [Ratio] 25.54 kg/m2 Kyle Horton MD Work Phone: [facility] 12-15-2023 01:36-0400 Body weight 65.4 kg Kyle Horton MD Work Phone: [facility] 12-14-2023 06:15-0400 Body height 160 cm Kyle Horton MD Work Phone: [facility] 04-02-2022 08:12-0500 Blood Pressure Location Ruizfernando DEVINE [facility] 04-02-2022 08:12-0500 Diastolic blood pressure 72 mm[Hg] Ruiz DEVINE [facility] 04-02-2022 08:12-0500 Heart rate 68 /min Ruiz DEVINE [facility] 04-02-2022 08:12-0500 Respiratory rate 16 /min Ruiz DEVINE [facility] 04-02-2022 08:12-0500 Systolic blood pressure 124 mm[Hg] Ruiz DEVINE [facility] Encounters Encounter Date Encounter Type Care Provider Facility Start: 07-25-2024 End: 07-25-2024 ambulatory [facility] Start: 06-04-2024 End: 06-04-2024 ambulatory [facility] Start: 04-02-2024 End: 04-02-2024 ambulatory Ruiz DEVINE Facility:[facility] Start: 04-02-2024 End: 04-02-2024 Patient encounter procedure Ruiz DEVINE [facility] Start: 12-23-2023 End: 12-23-2023 [facility] Start: 12-17-2023 End: 12-21-2023 Evaluation and management of inpatient CHIO AYOUB [facility] Start: 12-15-2023 End: 12-21-2023 Evaluation and management of inpatient JOHNSON DEGROOT [facility] Start: 12-15-2023 End: 12-15-2023 ambulatory DESHAWN PIRES [facility] Start: 12-14-2023 End: 12-21-2023 [facility] 12-14-2023 ambulatory [facility] Start: 12-14-2023 End: 12-21-2023 Evaluation and management of inpatient JODIE SOSA [facility] Start: 12-14-2023 End: 12-21-2023 Emergency department patient visit CHIO [facility] Start: 12-14-2023 End: 12-20-2023 Evaluation and management of inpatient SHAWN [facility] Comment on above: ICH (intracerebral h emorrhage) ([facility]) (Primary Dx) Start: 12-14-2023 ambulatory [facility] Start: 06-09-2022 End: 07-07-[address] JENNIFER KC . Facility: Start: 04-28-2022 End: 04-29-[address] JENNIFER KC . Facility:[facility] Start: 04-02-2022 End: 04-02-2022 Patient encounter procedure Ruiz DEVINE [facility] Start: 03-22-2022 End: 03-23-[address] JENNIFER KC . Facility:[facility] Start: 01-20-2022 End: 01-21-[address] JENNIFER KC . Facility:[facility] Procedures Date Procedure Procedure Detail Performing Clinician Start: 12-20-2023 Gluc bld gluc mntr d ev cleared fda spec home use Kyle Horton MD Work Phone: Start: 12-20-2023 Gluc bld gluc mntr d ev cleared fda spec home use Kyle Horton MD Work Phone: Start: 12-20-2023 Basic metabolic pane l calcium total Chio Ayoub [employer] PROFESSOR-RETAIL DIRECTOR Work Phone: Start: 12-19-2023 Gluc bld gluc mntr d ev cleared fda spec home use Kyle Horton MD Work Phone: Start: 12-19-2023 Gluc bld gluc mntr d ev cleared fda spec home use Kyle Horton MD Work Phone: Start: 12-19-2023 Gluc bld gluc mntr d ev cleared fda spec home use Kyle Horton MD Work Phone: Start: 12-19-2023 Gluc bld gluc mntr d ev cleared fda spec home use Kyle Horton MD Work Phone: Start: 12-19-2023 Basic metabolic pane l calcium total Chiobooker Ayoub [employer] PROFESSOR-RETAIL DIRECTOR Work Phone: Start: 12-18-2023 Gluc bld gluc mntr d ev cleared fda spec home use Kyle Horton MD Work Phone: Start: 12-18-2023 Gluc bld gluc mntr d ev cleared fda spec home use Kyle Horton MD Work Phone: Start: 12-18-2023 Gluc bld gluc mntr d ev cleared fda spec home use Kyle Horton MD Work Phone: Start: 12-18-2023 Gluc bld gluc mntr d ev cleared fda spec home use Kyle Horton MD Work Phone: Start: 12-18-2023 Basic metabolic pane l calcium total Chio Ayoub [employer] PROFESSOR-RETAIL DIRECTOR Work Phone: Start: 12-17-2023 Gluc bld gluc mntr d ev cleared fda spec home use Kyle Horton MD Work Phone: Start: 12-17-2023 Gluc bld gluc mntr d ev cleared fda spec home use Kyle Horton MD Work Phone: Start: 12-17-2023 Gluc bld gluc mntr d ev cleared fda spec home use Kyle Horton MD Work Phone: Start: 12-17-2023 Dup-scan xtr veins c omplete bilateral study Chio Ayoub [employer] PROFESSOR-[facility] Work Phone: Start: 12-17-2023 Gluc bld gluc mntr d ev cleared fda spec home use Kyle Horton MD Work Phone: Start: 12-17-2023 Basic metabolic pane l calcium total Chiobooker Ayoub [facility] Work Phone: Start: 12-16-2023 Gluc bld gluc mntr d ev cleared fda spec home use Kyle Horton MD Work Phone: Start: 12-16-2023 Gluc bld gluc mntr d ev cleared fda spec home use Kyle Horton MD Work Phone: Start: 12-16-2023 Gluc bld gluc mntr d ev cleared fda spec home use Kyle Horton MD Work Phone: Start: 12-16-2023 Gluc bld gluc mntr d ev cleared fda spec home use Kyle oHrton MD Work Phone: Start: 12-16-2023 Basic metabolic pane l calcium total Chio Ayoub [facility] Work Phone: Start: 12-15-2023 Gluc bld gluc mntr d ev cleared fda spec home use Kyle Horton MD Work Phone: Start: 12-15-2023 Echo tthrc r-t 2d w/ wom-mode compl spec&colr d Johnson Degroot MD Work Phone: Start: 12-15-2023 Gluc bld gluc mntr d ev cleared fda spec home use Kyle Horton MD Work Phone: Start: 12-15-2023 Gluc bld gluc mntr d ev cleared fda spec home use Kyle Horton MD Work Phone: Start: 12-15-2023 End: 12-15-2023 Basic metabolic panel calcium total Chioadam Ayoub [employer] PROFESSOR-RETAIL DIRECTOR Work Phone: Start: 12-14-2023 Ct head/brain w/o co ntrast material Chio Ayoub [employer] PROFESSOR-RETAIL DIRECTOR Work Phone: Start: 12-14-2023 Gluc bld gluc mntr d ev cleared fda spec home use Kyle Horton MD Work Phone: Start: 12-14-2023 Gluc bld gluc mntr d ev cleared fda spec home use Kyle Horton MD Work Phone: Start: 12-14-2023 Ct head/brain w/o co ntrast material Jodie Adornoggins [employer] PROFESSOR-RETAIL DIRECTOR Work Phone: Start: 12-14-2023 End: 12-14-2023 Gluc bld gluc mntr dev cleared fda spec home use Kyle Horton MD Work Phone: Start: 12-14-2023 Antibody screen Kyle Horton MD Work Phone: Start: 12-14-2023 Gluc bld gluc mntr d ev cleared fda spec home use Kyle Horton MD Work Phone: Start: 12-14-2023 End: 12-14-2023 Blood typing serologic abo Chio hyman [employer] PROFESSOR-RETAIL DIRECTOR Work Phone: Start: 12-14-2023 REPEATED ABORH Eneida Ayoub [employer] PROFESSOR-RETAIL DIRECTOR Work Phone: Start: 12-14-2023 Urnls dip stick/tabl et rgnt auto w/o microscopy Chio Ayoub [employer] PROFESSOR-RETAIL DIRECTOR Work Phone: Start: 12-14-2023 Radiologic exam ches t single view Chio Ayoub [employer] PROFESSOR-RETAIL DIRECTOR Work Phone: Start: 12-14-2023 Comprehensive metabolic panel Chio Ayoub [employer] PROFESSOR-RETAIL DIRECTOR Work Phone: Start: 12-14-2023 Ethanol [Mass/volume ] in Serum or Plasma Chio Nii BetancourtLookout [employer] PROFESSOR-RETAIL DIRECTOR Work Phone: Start: 04-28-2021 Excisional biopsy Xin DEVINE Comment on above: right hand- inflamed seborrheic keratosis Start: 05-03-2013 Extracorporeal shock wave lithotripsy of calculus of kidney Ruiz DEVINE Comment on above: left stent removal Start: 04-26-2013 Cystoscopic insertio n of ureteric stent Ruiz DEVINE Comment on above: left Start: 02-02-2010 Cystoscopy Ruiz MARILYN SLOANKeenan Comment on above: right stent removal Start: 01-28-2010 Cystoscopic insertio n of ureteric stent Ruiz DEVINE Start: 01-19-2010 Cystourethroscopy wi th dilation of urethral stricture Ruiz DEVINE Start: 04-18-2009 Coronary artery bypa ss grafts x 4 Ruiz DEVINE Brain stem hemorrhag e (disorder) Ruiz DEVINE Fall (finding) Ruiz ROSA S Ophthalmic surgery ( qualifier value) Ruiz DEVINE Plan of Treatment Date Care Activity Detail Author End: 12-14-2023 ECG 12 lead ECG 12 lead ECG Routine Once for 1 Occurrences starting 12/14/2023 until 12/14/2023 [facility] Work Phone: Comment on above: Once for 1 Occurrenc es starting 12/14/2023 until 12/14/2023 Immunizations Immunization Date Immunization Notes Care Provider Eliane santiago 04-03-2021 SARS-CoV-2 (COVID-19 ) mRNA-4076 vaccine Ruiz DEVINE [facility] 09-25-2020 SARS-CoV-2 (COVID-19 ) mRNA-1273 vaccine Ruiz DEVINE [facility] 08-18-2020 SARS-CoV-2 (COVID-19 ) mRNA-1273 vaccine Ruiz DEVINE [facility] 04-18-2020 SARS-CoV-2 (COVID-19 ) mRNA-1273 vaccine Ruiz DEVINE [facility] Comment on above: Result Comment: pt d oes not have her card and can not remember the dates Payers Date Payer Category Payer Private Health Insurance [employer] [id number] 2015-Present [phone] [address] [address] [place] [address] [id number] 2005 Medicare MEDICARE MEDICAR E PART A & B [id number] 2005-Present [phone] [address] [place] [address] [id number] 1959 Medicare [id number] 1959 Private Health Insurance [id number] 1940 Unknown [id number] [id number] .2.59 1940 Unknown [id number] 2.16.840.1.529951.3.579 .2.593 1940 Unknown [id number] 2.16.840.1.823722.3.579 .2.593 1940 Unknown [id number] 2.16.840.1.512296.3.579 .2.593 1940 Unknown [id number] 2.16.840.1.805070.3.579 .2.1285 1940 Unknown [id number] 2.16.840.1.293038.3.579 .2.1285 1940 Unknown [id number] 2.16.840.1.557791.3.579 .2.1285 1940 Unknown [id number] 2.16.840.1.258013.3.579 .2.1285 1940 Unknown [id number] 2.16.840.1.486090.3.579 .2.1285 1940 Unknown [id number] 2.16.840.1.876034.3.579 .2.1285 1940 Unknown [id number] 2.16.840.1.476282.3.579 .2.1285 1940 Unknown [id number] 2.16.840.1.383618.3.579 .2.1285 1940 Unknown [id number] 2.16.840.1.526787.3.579 .2.1285 1940 Unknown [id number] 2.16.840.1.950826.3.579 .2.1285 1940 Unknown [id number] [id number] .2.727 Social History Date Type Detail Facility Start: 04-21-2021 End: 12-14-2023 Tobacco smoking status Never smoked tobacco (finding) [facility] Tobacco smoking status Never [facility] Start: 12-14-2023 Sex Assigned At Female F [facility] Start: 12-14-2023 Tobacco use and exposure Smokeless tobacco non-user [facility] Start: 12-14-2023 Alcoholic beverage intake [facility] [employer] System Start: 12-14-2023 History of Social function [facility] Has the [employer], [employer], or [employer] threatened to shut off services in your home in past 12Mo No [facility] How often to you hav e a drink containing alcohol? Never [facility]: 1940 Sex assigned at Not on file [employer] Goals Date Patient Goal Desired Activity /State Personal health goal Comment on above: Formatting of this n ote might be different from the original. Evaluation of progress towards goal: Patient and family agree to SNF for short term rehab at discharge. Functional Status Date Assessment Result Facility 04-02-2024 Functional Status N/A [facility] 04-02-2022 Functional Status N/A [facility] Clinical Notes 04-02-2022 to 07-25-2024 Discharge Planning Note - Tabatha Gamez - 12/20/2023 4:02 PM EDTDischarge Planning Note - Tabatha Gamez - 12/20/2023 4:02 PM EDTDischarge Planning Note - Tabatha Gamez - 12/20/2023 11:59 AM EDT Note Date & Type Note Facility 07-25-2024 Note [facility] Cardiology Clinic Note Chief Complaint: Patient here for 2 month follow Patient had 30-day monitor and Labs. Patient states she has no cardiac complaints. HPI: Kelin Rosenberg is a 81 y.o. [...] and therefore cannot sleep properly at night -- UPDATE 06/04/2024 HOSPITAL COURSE SUMMARY: Kelin Rosenberg is an 83 y.o. White or female states on Tuesday her reports that she fell in the living room. She is amnestic to events. She was initially taken to [facility] and had a CTH which was [...] this was traumatic, she was transferred to [facility] for definitive care. On arrival she [...] Instructions Last Dose Given Next Dose Due vieldoybmu-fliozuuqiuvtz-syxv 50-325-40 mg per tablet Commonly known as: [...] Your Medications These medications were sent to [facility] - [place], [place] [address] [facility] [address] [facility], [place] [address] levETIRAcetam 500 mg tablet You can get these medications from any pharmacy Bring a paper prescription for each of these medications vtmwrzlotc-jpinrnrdzwilh-ytmn 50-325-40 mg per tablet Information about where to get these medications is not yet available Ask your nurse or doctor about these medications aspirin 81 mg sennosides-docusate sodium 8.6-50 mg Additional Discharge Instructions: none Scheduled Outpatient Follow Up: No future appointments. Follow-up Information Jimmie Burkett MD Follow up. JENNIFER KC MD Follow up. Specialty: Family Medicine Contact information: [place] (more content not included)... [facility] 06-04-2024 Note [facility] Cardiology Clinic Note Chief Complaint: Patient here for 1 year follow up CAD, hypertension, and hyperlipidemia. She was admitted to [facility] in Nov 2023 for intracerebral hemorrhage [...] and therefore cannot sleep properly at night -- UPDATE 06/04/2024 HOSPITAL COURSE SUMMARY: Kelin Rosenberg is an 83 y.o. White or female states on Tuesday her reports that she fell in the living room. She is amnestic to events. She was initially taken to [facility] and had a CTH which was [...] this was traumatic, she was transferred to [facility] for definitive care. On arrival she [...] Instructions Last Dose Given Next Dose Due yubgsmiudz-kpjsrxgcgekrh-xosc 50-325-40 mg per tablet Commonly known as: [...] Your Medications These medications were sent to [facility] - [place], [place] - [address] [place] [address] levETIRAcetam 500 mg tablet You can get these medications from any pharmacy Bring a paper prescription for each of these medications ixoqqyjchy-bjftjdeodrpve-hnzs 50-325-40 mg per tablet Information about where to get these medications is not yet available Ask your nurse or doctor about these medications aspirin 81 mg sennosides-docusate sodium 8.6-50 (more content not included)... [facility] 04-02-2024 Hospital Discharge instructions Patient Education 04/02/2024 11:01:22 Dietary Guidelines [...] include: ?8 oz (237 mL) of milk, gjvjien-bqzrqlbaxiop-bdzim milk, and calcium-fortifiedfruit juice. Calcium-fortified means that [...] ?Spinach (cooked), rhubarb, beets, sweet potatoes, and Tunisian chard. ?Peanuts. ?Potato chips, german fries, and baked potatoes with skin on. ?Nuts and nut products. ?Chocolate. If you regularly take a diuretic medicine, make sure to eat at least 1 or 2 servings of fruits or vegetables that are high in potassium each day. These include: ?Avocado. ?Banana. ?[place], prune, carrot, or tomato juice. ?Baked potato. [...] magnesium, fish oil, or vitamin B6. Take olal-vvb-ozpdvmj and prescription medicines only as told by [...] Casseroles. Pizza. Lasagna. Frozen meals. Potato chips. Khmer fries. The items listed above may not [...] provider. Document Revised: 07/15/2022 Document Reviewed: 07/15/2022 [employer] Patient Education 2023 [employer]. Follow Up Care 06/20/2023 13:56:41 With:SYBIL RODRIGUEZ, Ruiz Rangel, URL Address: [facility] [address], [place] [address]- When: Unknown [facility] 04-02-2024 Note Patient Education Nephrology Dietary Guidelines [...] ? 8 oz (237 mL) of milk, hddowzj-rospnxasecku-skvny milk, and calcium-fortifiedfruit juice. Calcium-fortified means that [...] Spinach (cooked), rhubarb, beets, sweet potatoes, and Tunisian chard. ? Peanuts. ? Potato chips, german fries, and baked potatoes with skin on. ? Nuts and nut products. ? Chocolate. ??? If you regularly take a diuretic medicine, make sure to eat at least 1 or 2 servings of fruits or vegetables that are high in potassium each day. These include: ? Avocado. ? Banana. ? [place], prune, carrot, or tomato juice. ? Baked [...] fish oil, or vitamin B6. ??? Take pqld-vpw-nkuszjw and prescription medicines only as told by your health (more content not included)... [facility] 12-20-2023 Progress note Formatting of t his note might be different from the original. DISCHARGE PLANNING NOTE per JOSE ALFREDO Robertson at [facility] they are running behind and I am now being told 5:00pm-5:30pm. Epic chat sent to misael Contreras RN. [facility] 12-20-2023 Miscellaneous Notes DISCHARGE PLANNING NOTE per JOSE ALFREDO Robertson at [facility] they are running behind and I am now being told 5:00pm-5:30pm. Epic chat sent to Ben bedside RN. DISCHARGE PLANNING NOTE [facility] transport via PTN confirmed in [facility] to [facility] 9.3.24 at 4:00pm DISCHARGE PLANNING NOTE Updates to [facility] (P#: ; F#: ) Images from the original note were not included. DISCHARGE PLANNING NOTE Discussed patient today during rounds. Plan- [facility] accepting. Tasked [facility] to schedule w/c van for 3 pm. Floor nurse and PA aware. Spoke with patient, and dtr and they are in agreement with d/c today to [place]. Awaiting CRF. Services Requested: Services Requested Discharge Disposition: SNF SNF Name: [facility] SNF SNF Does the patient need discharge transportation arranged?: Yes Transportation Arranged: Ambulance Visiting Physician/Provider: Jennifer Kc MD Initial DC Assessment Completed: Yes Patient Goals: Patient/Caregiver Goals Patient/Caregiver Goals: Shelter Care Skilled Nuring Care: Skilled Care (Short Term) Goals: Goals SNF (pt-stated) Evaluation of progress towards goal: Patient and family agree to SNF for short term rehab at discharge. - REBECCA PATEL 12/20/23 11:04 AM Tasked [facility] to send CRF to [facility]. - REBECCA PATEL 12/20/23 3:39 PM Physical Therapy Treatment Discharge Recommendations PT Recommendations: Shelter Facility 6 Clicks: Basic Mobility Turning from your back to your side while in a flat bed without using bed rails?: A little Moving from lying on your back to sitting on side of flat bed without using bed rails?: A lot Moving to and from bed to a chair (including w/c)?: A little Standing up from a chair using your arms (e.g. w/c or bedside chair)?: A little To walk in hospital room?: A little Climbing 3-5 steps with a railing?: Total Scoring 6 Clicks: Basic Mobility Raw Score: 15 CMS G Code Modifier: CK PT Treatment/Interventions: Functional transfer training, Patient/family training, Equipment eval/education, Balance, LE strengthening/ROM, Bed mobility, Gait training PT Frequency: 4-5days/week PT Duration: 01/10/24 Patient Response to Treatment: Progressing toward goals Assessment Patient Assessment Therapy Problem List: Decreased balance, Decreased cognition, Decreased endurance, Decreased mobility, Decreased safe judgement during ADL, Decreased LE strength Patient Response to Treatment: Progressing toward goals Mood/Affect: Appropriate for circumstances Rehab Prognosis: Good, With continued PT status post acute discharge Visit RN Communication: Yes Medical Record Reviewed: Yes PT Type of Visit: Treatment Precautions Activity: early mobility pass, okay for therapy per RN Equipment: gait belt, RW, chair alarm Telemetry/Employee Health Nurse: Yes Oxygen Used: room air Other: fall risk, decreased cognition, slow reaction time, lethargic, bed/chair alarm Pain Assessment Pain Assessment: No/denies pain Hearing / Speech / Vision Hearing: Hard of hearing/hearing concerns, Bilateral hearing aid Speech: Delayed responses Cognition Arousal/Alertness: Delayed responses to stimuli Attention Span: Attends with cues to redirect Orientation Level: Oriented X4 Following Commands: Follows one step commands with increased time, Follows one step commands with repetition Safety Judgment: Decreased awareness of need for safety Awareness of Errors: Decreased awareness of errors Insight of Deficits: Decreased awareness of deficits Problem Solving: Reduced Other: increased time and effort for completion of all tasks. pt lethargic this morning. Bed Mobility Supine to Sit: Min assist, Verbal cues Other: pt completed supine to sit with HOB elevated and use of bed rails. min assist to sit upright at EOB and to scoot hips forward. increased time and effort. pt up in chair at end of session eating breakfast. call light in reach and chair alarm on. RN aware Transfers Sit to Stand: Min assist, Verbal cues Stand to Sit: Min assist, Verbal cues Toilet Transfers: Min assist, Verbal cues Other: pt completed functional transfers with min assist. verbal cues for safe hand placement and technique. increased time and effort. no c/o dizziness. Gait Base of Support: Within Functional Limits Pattern: Decreased josselin, R Decreased foot clearance, L Decreased foot clearance Gait Assistance: Min assist Assistive Device: Rolling walker Gait Distance: 15 ft x2 Limiting Factors to Gait: Fatigue, Weakness, Decreased safety Other: pt completed functional mobility in hospital room with min assist. verbal cues for sequencing and safe use of RW. increased time and effort. no major LOB noted. pt fatigues quickly. Balance Sitting Balance: Static: Fair Sitting Balance: Dynamic: Fair Standing Balance: Static: Fair Standing Balance: Dynamic: Fair (-) Other: pt sat at EOB 15 mins in prep for transfer, demo'd posterior and R lean, verbal cues to maintain sitting balance. pt stood at toilet and sink 8 mins for adl's, cga for safety. no LOB noted. Activity Tolerance Endurance: Tolerates 30 minutes activity with rest breaks Other: activity limited by fatigue, weakness and decreased activity tolerance. increased time and effort for completion of all tasks d/t lethargic. 12/20/23 0730 LE Seated LE seated exercises performed? No (educated family at bedside - HEP given) UE ROM UE ROM exercises performed? No (educated family at bedside - HEP given) Plan Physical Therapy Care Plan Physical Therapy Care Plan (Active) Template: PT - Physical Therapy Problem: Activity Tolerance Dates: Start: 12/16/23 Disciplines: PT Goal: Tolerate > 30 minutes of activity WITH rest breaks Dates: Start: 12/16/23 Expected End: 01/10/24 Description: Goal Description: For seated and standing activities for improved mobility Disciplines: PT Outcomes Date/Time User Outcome 12/20/23820 Dory Andrews PTA Progressing Problem: Bed Mobility Dates: Start: 12/16/23 Disciplines: PT Goal: Patient will perform bed mobility with Supervision Dates: Start: 12/16/23 Expected End: 01/10/24 Description: Goal Description: Disciplines: PT Outcomes Date/Time User Outcome 09/03/24 08Shahnaz Andrews PTA Progressing Problem: Gait Dates: Start: 12/16/23 Disciplines: PT Goal: Patient will perform gait with Stand By Assist Dates: Start: 12/16/23 Expected End: 01/10/24 Description: 150 feet with RW support for safe mobility in home Goal Description: Disciplines: PT Outcomes Date/Time User Outcome 12/20/23 08Shahnaz Andrews PTA Progressing Problem: Standing Balance Dates: Start: 12/16/23 Disciplines: PT Goal: Improve balance to good Dates: Start: 12/16/23 Expected End: 01/10/24 Description: Static Dynamic with UE support as needed for safe mobility, decreased fall risk Disciplines: PT Outcomes Date/Time User Outcome 12/20/23 08Shahnaz Andrews PTA Progressing Problem: Transfers Dates: Start: 12/16/23 Disciplines: PT Goal: Patient will perform transfers with Supervision Dates: Start: 12/16/23 Expected End: 01/10/24 Description: Goal Description: with RW support Disciplines: PT Outcomes Date/Time User Outcome 12/20/23 08Shahnaz Andrews PTA Progressing Physical Therapy Care Plan (Resolved) There are no resolved problems. Principal Problem: ICH (intracerebral hemorrhage) ([facility]) Associated attestation - Zeeshan Hein, PT - 12/20/2023 2:59 PM EDT I have reviewed and agree with this note and education documentation for this visit. Problem: Pain Goal: Patient goal is pain score less than 4, able to rest, and participant in treatment plan as appropriate Description: INTERVENTIONS: 1. Encourage patient or legal termite control service representative to report early pain and ask for pain medicine when needed 2. Assess pain using appropriate pain scale and include the scale used when documenting 3. Administer analgesics based on type and severity of pain and evaluate response within appropriate time frame 4. Implement non-pharmacological measures as appropriate and evaluate response 5. Consider cultural and social influences on pain and pain management 6. Notify LIP if interventions ineffective or patient reports new pain 7. Monitor vital signs including pulse ox, end-tidal CO2 based on pain intervention 8. Reassess pain per policy 9. Teach patient or legal termite control service representative interventions for comforting Outcome: Progressing Note: Evaluation of progress towards goal: pain controlled with prn meds Problem: Pain Goal: Patient goal is pain score less than 4, able to rest, and participant in treatment plan as appropriate Description: INTERVENTIONS: 1. Encourage patient or legal termite control service representative to report early pain and ask for pain medicine when needed 2. Assess pain using appropriate pain scale and include the scale used when documenting 3. Administer analgesics based on type and severity of pain and evaluate response within appropriate time frame 4. Implement non-pharmacological measures as appropriate and evaluate response 5. Consider cultural and social influences on pain and pain management 6. Notify LIP if interventions ineffective or patient reports new pain 7. Monitor vital signs including pulse ox, end-tidal CO2 based on pain intervention 8. Reassess pain per policy 9. Teach patient or legal termite control service representative interventions for comforting Outcome: Progressing Note: Evaluation of progress towards goal: Patient can verbalize comfort level throughout shift, plan of care still ongoing and manage with pain meds or any other pain management. Problem: Safety Goal: Patient will be injury free during hospitalization Description: INTERVENTIONS: 1. Assess patient's risk for falls and implement fall prevention plan of care per policy 2. Provide and maintain a safe environment 3. Proper use of double Identifiers 4. Medication administration using the 5 rights 5. Hand hygiene 6. Specimens are labeled at the bedside 7. Instruct patient/ patient termite control service representative about use of safety devices 8. Include patient/ patient termite control service representative in decisions related to safety Outcome: Progressing Note: Evaluation of progress towards goal: Patient remains free injury at current shift, plan of care still ongoing. Problem: Infection Goal: Absence of infection during hospitalization Description: Interventions: 1. Assess and monitor for signs and symptoms of infection 2. Monitor lab/diagnostic results 3. Monitor all insertion sites i.e., indwelling lines, tubes and drains 4. Monitor endotracheal (as able) and nasal secretions for changes in amount and color 5. Administer medications as ordered 6. Instruct and encourage patient and family to use good hand hygiene technique 7. Identify and instruct patient/patient termite control service representative in use of appropriate isolation precautions for identified infection/symptoms 8. Provide and discuss with patient/patient termite control service representative on educational MDRO sheet 9. Encourage and monitor nutritional status daily and consult wholesale loan processor if indicated 10. Implement neutropenic guidelines as needed 11. Review exposure to history of communicable disease and recent travel history on admission 12. Encourage annual influenza vaccine 13. Encourage pneumonia vaccine Outcome: Progressing Note: Evaluation of progress towards goal: Patient remains free from signs and symptoms of infections at current time, plan of care still ongoing. Problem: Knowledge Deficit Goal: Patient/patient termite control service representative demonstrates understanding of disease process, treatment plan, medications, and discharge instructions Description: INTERVENTIONS 1. Complete learning assessment and assess knowledge base 2. Provide teaching at level of understanding 3. Provide teaching via preferred learning method(s) Outcome: Progressing Note: Evaluation of progress towards goal: Patient has been able to demonstrate understanding of disease process, treatment plan, medications and discharge instructions. Problem: Discharge Planning Goal: Discharge to post-acute care, other facility, or home with appropriate resources Description: Patient's goal is: INTERVENTIONS 1. Conduct assessment to determine patient/family and health care team treatment goals, and need for post-acute services based on payer coverage, community resources, and patient preferences, and barriers to discharge 2. Coordinate with Social work, Care Navigation, and Utilization Review to arrange appropriate level of services according to patient's needs based on patient preference and payer coverage in collaboration with the physician and health care team 3. Address psychosocial, clinical, and financial barriers to discharge as identified in assessment in conjunction with the patient/family and health care team 4. Consult appropriate ancillary services (i.e.. PT/OT/ST, etc) as needed 5. Communicate with and update the patient/family, physician, and health care team regarding progress on the discharge plan 6. Identify discharge learning needs (meds, wound care, etc). 7. Arrange for needed discharge transportation as appropriate Outcome: Progressing Note: Evaluation of progress towards goal: Patient is planned to be discharged to a prison facility with appropriate resources. Problem: Moderate - High Risk Fall Score Description: Coleman Fall Score of =/> 25 or indicated by [facility] Assessment Goal: Patient should be free from fall Description: Interventions: 1. [place] to environment 2. Hourly rounds addressing the 4 P's (Pain, Positioning, Possessions, Potty) 3. Clear area of hazards (spills, clutter, electrical cords, unnecessary equipment) 4. Place equipment (bed & TV controls, call light, phone, urinal) within reach 5. Encourage patient to wear glasses and hearing aides as appropriate 6. Maintain bed in lowest position 7. Lock wheels on bed/wheelchair 8. Provide adequate lighting, including night light 9. Assess need for additional bedding, food/fluids, pain med's prior to sleep/routinely 10. Provide gripper slippers or personal non-skid footwear 11. Teach patient and patient termite control service representative to maintain environment for safety and engage in all aspects of fall prevention program 12. Remind patient to call for help before getting out of bed 13. Initiate bed/chair/exit alarms supportive devices as appropriate, (chair wedge, no-skid floor mat, raised edge mattress, hip protectors) 14. Locate patient bed assignment for optimal visualization 15. Evaluate and identify Safe Patient Handling Equipment needs 16. Provide supervision when out of bed or chair 17. Utilize gait belt as needed to assist with ambulation 18. Place adaptive equipment (cane, walker) within reach 19. Request patient termite control service representative bring adaptive equipment/mobility aids from home or obtain and provide as needed 20. Consult pharmacy regarding effects of med's affecting mobility, cognition, and alternatives 21. Obtain physician order for PT if risk factors associated with mobility are present 22. Obtain physician order for OT as appropriate 23. Utilize diversional activities 24. Educate patient and patient termite control service representative how to maintain a safe environment during visitation times (notify nurse prior to leaving bedside) 25. Consider appropriateness of medical or non-neuropsychology medical consultant 26. Set up voiding schedule as appropriate (every 2 hours) Outcome: Progressing Note: Evaluation of progress towards goal: Patient remains free from falls at current time, plan of care still ongoing. Problem: Potential for Compromised Skin Integrity Goal: Skin integrity is maintained or improved Description: Patient's goal is: INTERVENTIONS 1. Perform initial skin assessment on admission and as needed 2. Turn patient every 2 hours and PRN 3. Relieve pressure to bony prominences 4. Avoid shearing 5. Keep skin clean and dry 6. Alternate a full bath with partial baths for elderly 7. Apply lotion/moisturizer on skin 8. Monitor patient's hygiene practices 9. Float heels 10. Collaborate with interdisciplinary team and initiate plans and interventions as needed Outcome: Progressing Note: Evaluation of progress towards goal: Patient's skin integrity has been maintained, plan of care still ongoing with [employer] skin assessments. Problem: Urinary Incontinence Goal: Perineal skin integrity is maintained or improved Description: INTERVENTIONS 1. Assess genitourinary system, perineal skin, labs (urinalysis), and history of incontinence to include past management, aggravating, and alleviating factors 2. Keep skin clean and dry 3. Apply skin protectant 4. Develop skin care regimen 5. Provide privacy when changing patients incontinence device to maintain their dignity 6. Consider placing an indwelling catheter 7. Collaborate with interdisciplinary team and initiate plans and interventions as needed Outcome: Progressing Note: Evaluation of progress towards goal: Patient's perineal skin integrity has been maintained, plan of care still ongoing with [employer] skin assessments and proper hygiene care. Problem: Pain Goal: Patient goal is pain score less than 4, able to rest, and participant in treatment plan as appropriate Description: INTERVENTIONS: 1. Encourage patient or legal termite control service representative to report early pain and ask for pain medicine when needed 2. Assess pain using appropriate pain scale and include the scale used when documenting 3. Administer analgesics based on type and severity of pain and evaluate response within appropriate time frame 4. Implement non-pharmacological measures as appropriate and evaluate response 5. Consider cultural and social influences on pain and pain management 6. Notify LIP if interventions ineffective or patient reports new pain 7. Monitor vital signs including pulse ox, end-tidal CO2 based on pain intervention 8. Reassess pain per policy 9. Teach patient or legal termite control service representative interventions for comforting Outcome: Progressing Note: Evaluation of progress towards goal: robertson controlled with prn meds Problem: Pain Goal: Patient goal is pain score less than 4, able to rest, and participant in treatment plan as appropriate Description: INTERVENTIONS: 1. Encourage patient or legal termite control service representative to report early pain and ask for pain medicine when needed 2. Assess pain using appropriate pain scale and include the scale used when documenting 3. Administer analgesics based on type and severity of pain and evaluate response within appropriate time frame 4. Implement non-pharmacological measures as appropriate and evaluate response 5. Consider cultural and social influences on pain and pain management 6. Notify LIP if interventions ineffective or patient reports new pain 7. Monitor vital signs including pulse ox, end-tidal CO2 based on pain intervention 8. Reassess pain per policy 9. Teach patient or legal termite control service representative interventions for comforting Outcome: Progressing Note: Evaluation of progress towards goal: Patient can verbalize comfort level throughout shift, plan of care still ongoing and manage with pain meds or any other pain management. Problem: Safety Goal: Patient will be injury free during hospitalization Description: INTERVENTIONS: 1. Assess patient's risk for falls and implement fall prevention plan of care per policy 2. Provide and maintain a safe environment 3. Proper use of double Identifiers 4. Medication administration using the 5 rights 5. Hand hygiene 6. Specimens are labeled at the bedside 7. Instruct patient/ patient termite control service representative about use of safety devices 8. Include patient/ patient termite control service representative in decisions related to safety Outcome: Progressing Note: Evaluation of progress towards goal: Patient remains free injury at current shift, plan of care still ongoing. Problem: Infection Goal: Absence of infection during hospitalization Description: Interventions: 1. Assess and monitor for signs and symptoms of infection 2. Monitor lab/diagnostic results 3. Monitor all insertion sites i.e., indwelling lines, tubes and drains 4. Monitor endotracheal (as able) and nasal secretions for changes in amount and color 5. Administer medications as ordered 6. Instruct and encourage patient and family to use good hand hygiene technique 7. Identify and instruct patient/patient termite control service representative in use of appropriate isolation precautions for identified infection/symptoms 8. Provide and discuss with patient/patient termite control service representative on educational MDRO sheet 9. Encourage and monitor nutritional status daily and consult wholesale loan processor if indicated 10. Implement neutropenic guidelines as needed 11. Review exposure to history of communicable disease and recent travel history on admission 12. Encourage annual influenza vaccine 13. Encourage pneumonia vaccine Outcome: Progressing Note: Evaluation of progress towards goal: Patient remains free from signs and symptoms of infections at current time, plan of care still ongoing. Problem: Knowledge Deficit Goal: Patient/patient termite control service representative demonstrates understanding of disease process, treatment plan, medications, and discharge instructions Description: INTERVENTIONS 1. Complete learning assessment and assess knowledge base 2. Provide teaching at level of understanding 3. Provide teaching via preferred learning method(s) Outcome: Progressing Note: Evaluation of progress towards goal: Patient has been able to demonstrate understanding of disease process, treatment plan, medications and discharge instructions. Problem: Discharge Planning Goal: Discharge to post-acute care, other facility, or home with appropriate resources Description: Patient's goal is: INTERVENTIONS 1. Conduct assessment to determine patient/family and health care team treatment goals, and need for post-acute services based on payer coverage, community resources, and patient preferences, and barriers to discharge 2. Coordinate with Social work, Care Navigation, and Utilization Review to arrange appropriate level of services according to patient's needs based on patient preference and payer coverage in collaboration with the physician and health care team 3. Address psychosocial, clinical, and financial barriers to discharge as identified in assessment in conjunction with the patient/family and health care team 4. Consult appropriate ancillary services (i.e.. PT/OT/ST, etc) as needed 5. Communicate with and update the patient/family, physician, and health care team regarding progress on the discharge plan 6. Identify discharge learning needs (meds, wound care, etc). 7. Arrange for needed discharge transportation as appropriate Outcome: Progressing Note: Evaluation of progress towards goal: Patient is [facility] with [facility]. Problem: Moderate - High Risk Fall Score Description: Coleman Fall Score of =/> 25 or indicated by [facility] Assessment Goal: Patient should be free from fall Description: Interventions: 1. [place] to environment 2. Hourly rounds addressing the 4 P's (Pain, Positioning, Possessions, Potty) 3. Clear area of hazards (spills, clutter, electrical cords, unnecessary equipment) 4. Place equipment (bed & TV controls, call light, phone, urinal) within reach 5. Encourage patient to wear glasses and hearing aides as appropriate 6. Maintain bed in lowest position 7. Lock wheels on bed/wheelchair 8. Provide adequate lighting, including night light 9. Assess need for additional bedding, food/fluids, pain med's prior to sleep/routinely 10. Provide gripper slippers or personal non-skid footwear 11. Teach patient and patient termite control service representative to maintain environment for safety and engage in all aspects of fall prevention program 12. Remind patient to call for help before getting out of bed 13. Initiate bed/chair/exit alarms supportive devices as appropriate, (chair wedge, no-skid floor mat, raised edge mattress, hip protectors) 14. Locate patient bed assignment for optimal visualization 15. Evaluate and identify Safe Patient Handling Equipment needs 16. Provide supervision when out of bed or chair 17. Utilize gait belt as needed to assist with ambulation 18. Place adaptive equipment (cane, walker) within reach 19. Request patient termite control service representative bring adaptive equipment/mobility aids from home or obtain and provide as needed 20. Consult pharmacy regarding effects of med's affecting mobility, cognition, and alternatives 21. Obtain physician order for PT if risk factors associated with mobility are present 22. Obtain physician order for OT as appropriate 23. Utilize diversional activities 24. Educate patient and patient termite control service representative how to maintain a safe environment during visitation times (notify nurse prior to leaving bedside) 25. Consider appropriateness of medical or non-neuropsychology medical consultant 26. Set up voiding schedule as appropriate (every 2 hours) Outcome: Progressing Note: Evaluation of progress towards goal: Patient remains free from falls at current time, plan of care still ongoing. Problem: Potential for Compromised Skin Integrity Goal: Skin integrity is maintained or improved Description: Patient's goal is: INTERVENTIONS 1. Perform initial skin assessment on admission and as needed 2. Turn patient every 2 hours and PRN 3. Relieve pressure to bony prominences 4. Avoid shearing 5. Keep skin clean and dry 6. Alternate a full bath with partial baths for elderly 7. Apply lotion/moisturizer on skin 8. Monitor patient's hygiene practices 9. Float heels 10. Collaborate with interdisciplinary team and initiate plans and interventions as needed Outcome: Progressing Note: Evaluation of progress towards goal: Patient's skin integrity has been maintained, plan of care still ongoing with [employer] skin assessments. Problem: Urinary Incontinence Goal: Perineal skin integrity is maintained or improved Description: INTERVENTIONS 1. Assess genitourinary system, perineal skin, labs (urinalysis), and history of incontinence to include past management, aggravating, and alleviating factors 2. Keep skin clean and dry 3. Apply skin protectant 4. Develop skin care regimen 5. Provide privacy when changing patients incontinence device to maintain their dignity 6. Consider placing an indwelling catheter 7. Collaborate with interdisciplinary team and initiate plans and interventions as needed Outcome: Progressing Note: Evaluation of progress towards goal: Patient's perineal skin integrity has been maintained, plan of care still ongoing with [employer] skin assessments and proper hygiene care. Problem: Pain Goal: Patient goal is pain score less than 4, able to rest, and participant in treatment plan as appropriate Description: INTERVENTIONS: 1. Encourage patient or legal termite control service representative to report early pain and ask for pain medicine when needed 2. Assess pain using appropriate pain scale and include the scale used when documenting 3. Administer analgesics based on type and severity of pain and evaluate response within appropriate time frame 4. Implement non-pharmacological measures as appropriate and evaluate response 5. Consider cultural and social influences on pain and pain management 6. Notify LIP if interventions ineffective or patient reports new pain 7. Monitor vital signs including pulse ox, end-tidal CO2 based on pain intervention 8. Reassess pain per policy 9. Teach patient or legal termite control service representative interventions for comforting Outcome: Progressing Note: Evaluation of progress towards goal: no pain reported Problem: Pain Goal: Patient goal is pain score less than 4, able to rest, and participant in treatment plan as appropriate Description: INTERVENTIONS: 1. Encourage patient or legal termite control service representative to report early pain and ask for pain medicine when needed 2. Assess pain using appropriate pain scale and include the scale used when documenting 3. Administer analgesics based on type and severity of pain and evaluate response within appropriate time frame 4. Implement non-pharmacological measures as appropriate and evaluate response 5. Consider cultural and social influences on pain and pain management 6. Notify LIP if interventions ineffective or patient reports new pain 7. Monitor vital signs including pulse ox, end-tidal CO2 based on pain intervention 8. Reassess pain per policy 9. Teach patient or legal termite control service representative interventions for comforting Note: Evaluation of progress towards goal: denies pain Problem: Safety Goal: Patient will be injury free during hospitalization Description: INTERVENTIONS: 1. Assess patient's risk for falls and implement fall prevention plan of care per policy 2. Provide and maintain a safe environment 3. Proper use of double Identifiers 4. Medication administration using the 5 rights 5. Hand hygiene 6. Specimens are labeled at the bedside 7. Instruct patient/ patient termite control service representative about use of safety devices 8. Include patient/ patient termite control service representative in decisions related to safety Note: Evaluation of progress towards goal: fall risk education, safety checks Problem: Knowledge Deficit Goal: Patient/patient termite control service representative demonstrates understanding of disease process, treatment plan, medications, and discharge instructions Description: INTERVENTIONS 1. Complete learning assessment and assess knowledge base 2. Provide teaching at level of understanding 3. Provide teaching via preferred learning method(s) Note: Evaluation of progress towards goal: medication education. Pt to go to SNF at discharge Problem: Pain Goal: Patient goal is pain score less than 4, able to rest, and participant in treatment plan as appropriate Description: INTERVENTIONS: 1. Encourage patient or legal termite control service representative to report early pain and ask for pain medicine when needed 2. Assess pain using appropriate pain scale and include the scale used when documenting 3. Administer analgesics based on type and severity of pain and evaluate response within appropriate time frame 4. Implement non-pharmacological measures as appropriate and evaluate response 5. Consider cultural and social influences on pain and pain management 6. Notify LIP if interventions ineffective or patient reports new pain 7. Monitor vital signs including pulse ox, end-tidal CO2 based on pain intervention 8. Reassess pain per policy 9. Teach patient or legal termite control service representative interventions for comforting Outcome: Progressing Note: Evaluation of progress towards goal: Pt able to verbalize needs for pain meds, PRN given for acute headache pain. Pain scale implemented & reassessed per policy. Vital signs monitored closely. Problem: Safety Goal: Patient will be injury free during hospitalization Description: INTERVENTIONS: 1. Assess patient's risk for falls and implement fall prevention plan of care per policy 2. Provide and maintain a safe environment 3. Proper use of double Identifiers 4. Medication administration using the 5 rights 5. Hand hygiene 6. Specimens are labeled at the bedside 7. Instruct patient/ patient termite control service representative about use of safety devices 8. Include patient/ patient termite control service representative in decisions related to safety Outcome: Progressing Note: Evaluation of progress towards goal: Fall risk is reassessed each shift, environment safely maintained.Safe patient handling equipment used. Pt remains fall & injury free. Pt is oriented x4, calls out appropriately using call light & is rounded on hourly. Bed/chair maintained in lowest & locked position. PT/OT continues to work with pt. Problem: Infection Goal: Absence of infection during hospitalization Description: Interventions: 1. Assess and monitor for signs and symptoms of infection 2. Monitor lab/diagnostic results 3. Monitor all insertion sites i.e., indwelling lines, tubes and drains 4. Monitor endotracheal (as able) and nasal secretions for changes in amount and color 5. Administer medications as ordered 6. Instruct and encourage patient and family to use good hand hygiene technique 7. Identify and instruct patient/patient termite control service representative in use of appropriate isolation precautions for identified infection/symptoms 8. Provide and discuss with patient/patient termite control service representative on educational MDRO sheet 9. Encourage and monitor nutritional status daily and consult wholesale loan processor if indicated 10. Implement neutropenic guidelines as needed 11. Review exposure to history of communicable disease and recent travel history on admission 12. Encourage annual influenza vaccine 13. Encourage pneumonia vaccine Outcome: Progressing Note: Evaluation of progress towards goal: All labs/viral signs monitored for signs of infection, meds administered as ordered. Vaccines reviewed on admission. Pt is afebrile with no signs/symptoms of infection. Continue to monitor. Problem: Knowledge Deficit Goal: Patient/patient termite control service representative demonstrates understanding of disease process, treatment plan, medications, and discharge instructions Description: INTERVENTIONS 1. Complete learning assessment and assess knowledge base 2. Provide teaching at level of understanding 3. Provide teaching via preferred learning method(s) Outcome: Progressing Note: Evaluation of progress towards goal: Education reviewed with patient, pt verbalizes understanding POC, education provided & discharge plan. Problem: Discharge Planning Goal: Discharge to post-acute care, other facility, or home with appropriate resources Description: Patient's goal is: INTERVENTIONS 1. Conduct assessment to determine patient/family and health care team treatment goals, and need for post-acute services based on payer coverage, community resources, and patient preferences, and barriers to discharge 2. Coordinate with Social work, Care Navigation, and Utilization Review to arrange appropriate level of services according to patient's needs based on patient preference and payer coverage in collaboration with the physician and health care team 3. Address psychosocial, clinical, and financial barriers to discharge as identified in assessment in conjunction with the patient/family and health care team 4. Consult appropriate ancillary services (i.e.. PT/OT/ST, etc) as needed 5. Communicate with and update the patient/family, physician, and health care team regarding progress on the discharge plan 6. Identify discharge learning needs (meds, wound care, etc). 7. Arrange for needed discharge transportation as appropriate Outcome: Progressing Note: Evaluation of progress towards goal: Treatment team assessed pt for discharge needs. PT/OT recommends SNF at discharge, referral sent to [facility], awaiting precert. Family updated. BUSINESS ANALYSIS ANALYST following, transport will be setup once authorization received. Problem: Moderate - High Risk Fall Score Description: Coleman Fall Score of =/> 25 or indicated by [facility] Assessment Goal: Patient should be free from fall Description: Interventions: 1. [place] to environment 2. Hourly rounds addressing the 4 P's (Pain, Positioning, Possessions, Potty) 3. Clear area of hazards (spills, clutter, electrical cords, unnecessary equipment) 4. Place equipment (bed & TV controls, call light, phone, urinal) within reach 5. Encourage patient to wear glasses and hearing aides as appropriate 6. Maintain bed in lowest position 7. Lock wheels on bed/wheelchair 8. Provide adequate lighting, including night light 9. Assess need for additional bedding, food/fluids, pain med's prior to sleep/routinely 10. Provide gripper slippers or personal non-skid footwear 11. Teach patient and patient termite control service representative to maintain environment for safety and engage in all aspects of fall prevention program 12. Remind patient to call for help before getting out of bed 13. Initiate bed/chair/exit alarms supportive devices as appropriate, (chair wedge, no-skid floor mat, raised edge mattress, hip protectors) 14. Locate patient bed assignment for optimal visualization 15. Evaluate and identify Safe Patient Handling Equipment needs 16. Provide supervision when out of bed or chair 17. Utilize gait belt as needed to assist with ambulation 18. Place adaptive equipment (cane, walker) within reach 19. Request patient termite control service representative bring adaptive equipment/mobility aids from home or obtain and provide as needed 20. Consult pharmacy regarding effects of med's affecting mobility, cognition, and alternatives 21. Obtain physician order for PT if risk factors associated with mobility are present 22. Obtain physician order for OT as appropriate 23. Utilize diversional activities 24. Educate patient and patient termite control service representative how to maintain a safe environment during visitation times (notify nurse prior to leaving bedside) 25. Consider appropriateness of medical or non-neuropsychology medical consultant 26. Set up voiding schedule as appropriate (every 2 hours) Outcome: Progressing Note: Evaluation of progress towards goal: Fall risk is reassessed each shift, environment safely maintained.Safe patient handling equipment used. Pt remains fall & injury free. Pt is oriented x4, calls out appropriately using call light & is rounded on hourly. Bed/chair maintained in lowest & locked position. PT/OT continues to work with pt. Problem: Potential for Compromised Skin Integrity Goal: Skin integrity is maintained or improved Description: Patient's goal is: INTERVENTIONS 1. Perform initial skin assessment on admission and as needed 2. Turn patient every 2 hours and PRN 3. Relieve pressure to bony prominences 4. Avoid shearing 5. Keep skin clean and dry 6. Alternate a full bath with partial baths for elderly 7. Apply lotion/moisturizer on skin 8. Monitor patient's hygiene practices 9. Float heels 10. Collaborate with interdisciplinary team and initiate plans and interventions as needed Outcome: Progressing Note: Evaluation of progress towards goal: Skin assessment on admission & each shift. Pt skin is intact with no open areas or breakdown present. Able to reposition self. Continue to monitor Goal: Patient's nutritional intake is adequate Description: Patient's goal is: INTERVENTIONS 1. Assess and monitor food intake and supplements, patient food preferences, nausea, vomiting, labs, oral cavity (gums, teeth, tongue, mucosa), proper denture fit, and cultural beliefs 2. Monitor for signs of hypoglycemia and hyperglycemia 3. Collaborate with interdisciplinary team and initiate plan and interventions as ordered 4. Monitor patient's weight 5. Assist patient with meals/food selection 6. Assist patient with eating 7. Allow adequate time for meals 8. Provide pleasant environment during mealtime 9. Increase social contact during mealtimes 10. Plan activities to conserve energy 11. Encourage/perform oral hygiene as appropriate 12. Encourage patient to take dietary supplement as ordered 13. Collaborate with clinical wholesale loan processor 14. Include patient/ patient's termite control service representative in decisions related to nutrition Outcome: Progressing Note: Evaluation of progress towards goal: Pt on regular diet with poor appetite. Encouragement given Problem: Urinary Incontinence Goal: Perineal skin integrity is maintained or improved Description: INTERVENTIONS 1. Assess genitourinary system, perineal skin, labs (urinalysis), and history of incontinence to include past management, aggravating, and alleviating factors 2. Keep skin clean and dry 3. Apply skin protectant 4. Develop skin care regimen 5. Provide privacy when changing patients incontinence device to maintain their dignity 6. Consider placing an indwelling catheter 7. Collaborate with interdisciplinary team and initiate plans and interventions as needed Outcome: Progressing Note: Evaluation of progress towards goal: Skin assessment on admission & each shift. Pt skin is intact with no open areas or breakdown present. Able to reposition self. Continue to monitor Problem: Pain Goal: Patient goal is pain score less than 4, able to rest, and participant in treatment plan as appropriate Description: INTERVENTIONS: 1. Encourage patient or legal termite control service representative to report early pain and ask for pain medicine when needed 2. Assess pain using appropriate pain scale and include the scale used when documenting 3. Administer analgesics based on type and severity of pain and evaluate response within appropriate time frame 4. Implement non-pharmacological measures as appropriate and evaluate response 5. Consider cultural and social influences on pain and pain management 6. Notify LIP if interventions ineffective or patient reports new pain 7. Monitor vital signs including pulse ox, end-tidal CO2 based on pain intervention 8. Reassess pain per policy 9. Teach patient or legal termite control service representative interventions for comforting Outcome: Progressing Note: Evaluation of progress towards goal: denies pain Problem: Safety Goal: Patient will be injury free during hospitalization Description: INTERVENTIONS: 1. Assess patient's risk for falls and implement fall prevention plan of care per policy 2. Provide and maintain a safe environment 3. Proper use of double Identifiers 4. Medication administration using the 5 rights 5. Hand hygiene 6. Specimens are labeled at the bedside 7. Instruct patient/ patient termite control service representative about use of safety devices 8. Include patient/ patient termite control service representative in decisions related to safety Outcome: Progressing Note: Evaluation of progress towards goal: bed alarm Problem: Infection Goal: Absence of infection during hospitalization Description: Interventions: 1. Assess and monitor for signs and symptoms of infection 2. Monitor lab/diagnostic results 3. Monitor all insertion sites i.e., indwelling lines, tubes and drains 4. Monitor endotracheal (as able) and nasal secretions for changes in amount and color 5. Administer medications as ordered 6. Instruct and encourage patient and family to use good hand hygiene technique 7. Identify and instruct patient/patient termite control service representative in use of appropriate isolation precautions for identified infection/symptoms 8. Provide and discuss with patient/patient termite control service representative on educational MDRO sheet 9. Encourage and monitor nutritional status daily and consult wholesale loan processor if indicated 10. Implement neutropenic guidelines as needed 11. Review exposure to history of communicable disease and recent travel history on admission 12. Encourage annual influenza vaccine 13. Encourage pneumonia vaccine Outcome: Progressing Note: Evaluation of progress towards goal: Problem: Moderate - High Risk Fall Score Description: Coleman Fall Score of =/> 25 or indicated by [facility] Assessment Goal: Patient should be free from fall Description: Interventions: 1. [place] to environment 2. Hourly rounds addressing the 4 P's (Pain, Positioning, Possessions, Potty) 3. Clear area of hazards (spills, clutter, electrical cords, unnecessary equipment) 4. Place equipment (bed & TV controls, call light, phone, urinal) within reach 5. Encourage patient to wear glasses and hearing aides as appropriate 6. Maintain bed in lowest position 7. Lock wheels on bed/wheelchair 8. Provide adequate lighting, including night light 9. Assess need for additional bedding, food/fluids, pain med's prior to sleep/routinely 10. Provide gripper slippers or personal non-skid footwear 11. Teach patient and patient termite control service representative to maintain environment for safety and engage in all aspects of fall prevention program 12. Remind patient to call for help before getting out of bed 13. Initiate bed/chair/exit alarms supportive devices as appropriate, (chair wedge, no-skid floor mat, raised edge mattress, hip protectors) 14. Locate patient bed assignment for optimal visualization 15. Evaluate and identify Safe Patient Handling Equipment needs 16. Provide supervision when out of bed or chair 17. Utilize gait belt as needed to assist with ambulation 18. Place adaptive equipment (cane, walker) within reach 19. Request patient termite control service representative bring adaptive equipment/mobility aids from home or obtain and provide as needed 20. Consult pharmacy regarding effects of med's affecting mobility, cognition, and alternatives 21. Obtain physician order for PT if risk factors associated with mobility are present 22. Obtain physician order for OT as appropriate 23. Utilize diversional activities 24. Educate patient and patient termite control service representative how to maintain a safe environment during visitation times (notify nurse prior to leaving bedside) 25. Consider appropriateness of medical or non-neuropsychology medical consultant 26. Set up voiding schedule as appropriate (every 2 hours) Outcome: Progressing Note: Evaluation of progress towards goal: fall risk education Problem: Pain Goal: Patient goal is pain score less than 4, able to rest, and participant in treatment plan as appropriate Description: INTERVENTIONS: 1. Encourage patient or legal termite control service representative to report early pain and ask for pain medicine when needed 2. Assess pain using appropriate pain scale and include the scale used when documenting 3. Administer analgesics based on type and severity of pain and evaluate response within appropriate time frame 4. Implement non-pharmacological measures as appropriate and evaluate response 5. Consider cultural and social influences on pain and pain management 6. Notify LIP if interventions ineffective or patient reports new pain 7. Monitor vital signs including pulse ox, end-tidal CO2 based on pain intervention 8. Reassess pain per policy 9. Teach patient or legal termite control service representative interventions for comforting Outcome: Progressing Note: Evaluation of progress towards goal: Problem: Safety Goal: Patient will be injury free during hospitalization Description: INTERVENTIONS: 1. Assess patient's risk for falls and implement fall prevention plan of care per policy 2. Provide and maintain a safe environment 3. Proper use of double Identifiers 4. Medication administration using the 5 rights 5. Hand hygiene 6. Specimens are labeled at the bedside 7. Instruct patient/ patient termite control service representative about use of safety devices 8. Include patient/ patient termite control service representative in decisions related to safety Outcome: Progressing Note: Evaluation of progress towards goal: Problem: Infection Goal: Absence of infection during hospitalization Description: Interventions: 1. Assess and monitor for signs and symptoms of infection 2. Monitor lab/diagnostic results 3. Monitor all insertion sites i.e., indwelling lines, tubes and drains 4. Monitor endotracheal (as able) and nasal secretions for changes in amount and color 5. Administer medications as ordered 6. Instruct and encourage patient and family to use good hand hygiene technique 7. Identify and instruct patient/patient termite control service representative in use of appropriate isolation precautions for identified infection/symptoms 8. Provide and discuss with patient/patient termite control service representative on educational MDRO sheet 9. Encourage and monitor nutritional status daily and consult wholesale loan processor if indicated 10. Implement neutropenic guidelines as needed 11. Review exposure to history of communicable disease and recent travel history on admission 12. Encourage annual influenza vaccine 13. Encourage pneumonia vaccine Outcome: Progressing Note: Evaluation of progress towards goal: Problem: Knowledge Deficit Goal: Patient/patient termite control service representative demonstrates understanding of disease process, treatment plan, medications, and discharge instructions Description: INTERVENTIONS 1. Complete learning assessment and assess knowledge base 2. Provide teaching at level of understanding 3. Provide teaching via preferred learning method(s) Outcome: Progressing Note: Evaluation of progress towards goal: Problem: Discharge Planning Goal: Discharge to post-acute care, other facility, or home with appropriate resources Description: Patient's goal is: INTERVENTIONS 1. Conduct assessment to determine patient/family and health care team treatment goals, and need for post-acute services based on payer coverage, community resources, and patient preferences, and barriers to discharge 2. Coordinate with Social work, Care Navigation, and Utilization Review to arrange appropriate level of services according to patient's needs based on patient preference and payer coverage in collaboration with the physician and health care team 3. Address psychosocial, clinical, and financial barriers to discharge as identified in assessment in conjunction with the patient/family and health care team 4. Consult appropriate ancillary services (i.e.. PT/OT/ST, etc) as needed 5. Communicate with and update the patient/family, physician, and health care team regarding progress on the discharge plan 6. Identify discharge learning needs (meds, wound care, etc). 7. Arrange for needed discharge transportation as appropriate Outcome: Progressing Note: Evaluation of progress towards goal: Problem: Moderate - High Risk Fall Score Description: Coleman Fall Score of =/> 25 or indicated by [facility] Re[facility] Assessment Goal: Patient should be free from fall Description: Interventions: 1. [place] to environment 2. Hourly rounds addressing the 4 P's (Pain, Positioning, Possessions, Potty) 3. Clear area of hazards (spills, clutter, electrical cords, unnecessary equipment) 4. Place equipment (bed & TV controls, call light, phone, urinal) within reach 5. Encourage patient to wear glasses and hearing aides as appropriate 6. Maintain bed in lowest position 7. Lock wheels on bed/wheelchair 8. Provide adequate lighting, including night light 9. Assess need for additional bedding, food/fluids, pain med's prior to sleep/routinely 10. Provide gripper slippers or personal non-skid footwear 11. Teach patient and patient termite control service representative to maintain environment for safety and engage in all aspects of fall prevention program 12. Remind patient to call for help before getting out of bed 13. Initiate bed/chair/exit alarms supportive devices as appropriate, (chair wedge, no-skid floor mat, raised edge mattress, hip protectors) 14. Locate patient bed assignment for optimal visualization 15. Evaluate and identify Safe Patient Handling Equipment needs 16. Provide supervision when out of bed or chair 17. Utilize gait belt as needed to assist with ambulation 18. Place adaptive equipment (cane, walker) within reach 19. Request patient termite control service representative bring adaptive equipment/mobility aids from home or obtain and provide as needed 20. Consult pharmacy regarding effects of med's affecting mobility, cognition, and alternatives 21. Obtain physician order for PT if risk factors associated with mobility are present 22. Obtain physician order for OT as appropriate 23. Utilize diversional activities 24. Educate patient and patient termite control service representative how to maintain a safe environment during visitation times (notify nurse prior to leaving bedside) 25. Consider appropriateness of medical or non-neuropsychology medical consultant 26. Set up voiding schedule as appropriate (every 2 hours) Outcome: Progressing Note: Evaluation of progress towards goal: Problem: Potential for Compromised Skin Integrity Goal: Skin integrity is maintained or improved Description: Patient's goal is: INTERVENTIONS 1. Perform initial skin assessment on admission and as needed 2. Turn patient every 2 hours and PRN 3. Relieve pressure to bony prominences 4. Avoid shearing 5. Keep skin clean and dry 6. Alternate a full bath with partial baths for elderly 7. Apply lotion/moisturizer on skin 8. Monitor patient's hygiene practices 9. Float heels 10. Collaborate with interdisciplinary team and initiate plans and interventions as needed Outcome: Progressing Note: Evaluation of progress towards goal: Goal: Patient's nutritional intake is adequate Description: Patient's goal is: INTERVENTIONS 1. Assess and monitor food intake and supplements, patient food preferences, nausea, vomiting, labs, oral cavity (gums, teeth, tongue, mucosa), proper denture fit, and cultural beliefs 2. Monitor for signs of hypoglycemia and hyperglycemia 3. Collaborate with interdisciplinary team and initiate plan and interventions as ordered 4. Monitor patient's weight 5. Assist patient with meals/food selection 6. Assist patient with eating 7. Allow adequate time for meals 8. Provide pleasant environment during mealtime 9. Increase social contact during mealtimes 10. Plan activities to conserve energy 11. Encourage/perform oral hygiene as appropriate 12. Encourage patient to take dietary supplement as ordered 13. Collaborate with clinical wholesale loan processor 14. Include patient/ patient's termite control service representative in decisions related to nutrition Outcome: Progressing Note: Evaluation of progress towards goal: Problem: Urinary Incontinence Goal: Perineal skin integrity is maintained or improved Description: INTERVENTIONS 1. Assess genitourinary system, perineal skin, labs (urinalysis), and history of incontinence to include past management, aggravating, and alleviating factors 2. Keep skin clean and dry 3. Apply skin protectant 4. Develop skin care regimen 5. Provide privacy when changing patients incontinence device to maintain their dignity 6. Consider placing an indwelling catheter 7. Collaborate with interdisciplinary team and initiate plans and interventions as needed Outcome: Progressing Note: Evaluation of progress towards goal: DISCHARGE PLANNING NOTE Referral to [facility] (P# ; F# ) , [facility] (P#: ; F#: ) , [facility] [place] (P# [phone]; F# [phone]) Images from the original note were not included. DISCHARGE PLANNING NOTE Services Requested: Services Requested Discharge Disposition: SNF Does the patient need discharge transportation arranged?: Yes Transportation Arranged: Ambulance Visiting Physician/Provider: Jennifer Kc MD Initial DC Assessment Completed: Yes Patient Goals: Patient/Caregiver Goals Patient/Caregiver Goals: Shelter Care Skilled Nuring Care: Skilled Care (Short Term) Goals: Goals SNF (pt-stated) Evaluation of progress towards goal: Patient and family agree to SNF for short term rehab at discharge. Patient admitted for: Fall, SAH Patient discussed in discharge transition rounds: Per RN report : SNF choices, acceptance CN spoke with patient, spouse Arnold, daughter Jean and son Lazaro, at bedside, introduced self and explained role. Patinet not feeling well and closed her eyes for the discussion. Patient lives with spouse in a two story home with 2 steps to enter from the back door, bed/bathrooms on second floor with one flights of stairs. Spouse stated patient was independent with ADL's and patient was able to drive a limited amount prior to admission. Patient states that they currently have a cane, shower chair DME. Patient endorses no issue financially with being able to obtain medications or food. Patient states that they have working water, gas and electric. Patient's preferred pharmacy is [facility] in [place], [facility]. Per patient self report: Drug use: deny ETOH use: deny Smoking: deny PCP added to follow up provider list to receive summary of care at discharge. Based on readmission risk assessment, patient has risk score of 13 for readmission. The following arrangements have been made to help prevent readmission. D/C Plan: SNF . Spouse and daughter reviewed SNF list and provided CN with 3 choices: [facility] in [place], [facility], and the [facility] in [place]. [facility] tasked to send referral to the three SNF choices. Patient has traditional medicare and will need a 3 midnight stay, no precert needed . Material Control Supervisor will continue to follow for any discharge needs. - Nandini Brown RN 12/16/23 3:43 PM Occupational Therapy Evaluation Discharge Recommendations OT Recommendations : Shelter Facility SNF/ECF Comments: patient would benefit from skilled OT to address ADL, balance, activity tolerance. Patient was independent with ADL's prior to admission. Patient is a fall risk. 6 Clicks: Daily Activity Putting on and taking off regular lower body clothing?: A lot Bathing (including washing, rinsing, drying)?: A lot Toileting, which includes using toilet, bedpan or urinal?: A lot Putting on and taking off regular upper body clothing?: A lot Taking care of personal grooming such as brushing teeth?: A lot Eating meals?: A little Scoring Daily Activity Raw Score: 13 CMS G Code Modifier: CL Occupational Profile Patient is a 83 year old female admitted with fall at home on 12-11-[address] head: negative. Patient went to [place] and was kept for observation and was discharged home the next day. Family noted slurred speech and patient went back to hospital and was found to have SAH. Transfer to [facility]. CT head; small SAH in right precentral sulcus and right temporal lobe and medial left frontal SAH has resolved, scattered SAH, left temporal and superior cerebellum. Cardiology consult regarding possible syncope and plan for [facility]. Repeat CT brain: stable small SAH. Echo: normal. No neurosurgical intervention. Patient was able to ambulate independently prior to admission. Patient does her own ADL tasks. Patient does not drive much however, is able to drive. Patient is retired. See below for past medical and past surgical history. No past medical history on file. No past surgical history on file. Therapy Plan Need for skilled Occupational Therapy to address deficits in ADL independence and functional mobility due to a status decline resulting from fall at home. OT Treatment/Interventions: ADL retraining, Equipment eval/education, Bed mobility, Functional activities, Balance, Functional transfer training, Home management, Cognitive reorientation, Patient/family training, UE strengthening/ROM OT Frequency: 4-5days/week OT Duration: dec Assessment Visit RN Communication: Yes Medical Record Reviewed: Yes OT Type of Visit: Evaluation Precautions Activity: advance activity as tolerated per early mobility guidelines. Equipment: telemetry, walker, gait belt, IV and 2 liters oxygen. Telemetry/Employee Health Nurse: Yes Oxygen Used: 2 liters oxygen. Other: fall risk, decreased cognition, slow reaction time, lethargic. Pain Assessment Pain Assessment: No/denies pain Home Living Type of Home: House Home Layout: Two level, Bed/bath upstairs, 1/2 bath on main level Stairs to Enter: 2 into garage with grab bar on the right side. Stairs in Home: one flight to upstairs with right side rail. Hand Rails in Home: Right Bathroom Shower/Tub: Tub/shower unit Bathroom Toilet: Standard Bathroom Equipment: Shower chair Home Equipment: Cane Prior Function Lives With: Spouse (lives with Mikey.) Level of Mobility: Independent with ADLs and functional transfers or gait Homemaking Assistance: Independent Vocational: Retired Other: patient does not drive much. does not use a cane or walker, patient does her own ADL tasks and household tasks. cooks and does most of the driving. ADL / IADL Hand Dominance: Right Where Assessed: Supine, bed, Edge of bed, At toilet, Chair (patient left up in chair with call light in reach in family in room.) Eating Assistance: Setup Grooming Assistance: Mod assist Bathing/Showering Assistance: Mod assist Toilet/Commode Assistance: Mod assist UE Dressing Assistance: Mod assist LE Dressing Assistance: Mod assist Footwear Assistance: Mod assist Other: patient was able to ambualte into bathroom with walker and mod assist. Patient was able to transition at toilet with min assist. patient was required mod assist for lila care. Patient was able to transition from toilet with min assist. Patient was able to ambulate from bathroom to chair with mod verbal cues and min assist. patient is lethargic and slow to process information. High fall risk potential. Patient reuqired mod assist to open all containers on breakfast tray and min assist for feeding due to endurance. Home Management - IADL Other: patient was able to ambualte into bathroom with walker and mod assist. Patient was able to transition at toilet with min assist. patient was required mod assist for lila care. Patient was able to transition from toilet with min assist. Patient was able to ambulate from bathroom to chair with mod verbal cues and min assist. patient is lethargic and slow to process information. High fall risk potential. Patient reuqired mod assist to open all containers on breakfast tray and min assist for feeding due to endurance. Hearing / Speech / Vision Hearing: Bilateral hearing aid Speech: Other (Comment) (slow/deliberate/lethargic.) Current Vision: Wears glasses only for reading Cognition Overall Cognitive Status: Exceptions to Within Functional Limits Orientation Level: Other (Comment) (patient was able to recall her own address, Husbands name and her kids name.) Safety Judgment: Decreased awareness of need for safety Awareness of Errors: Decreased awareness of errors Insight of Deficits: Decreased awareness of deficits Problem Solving: Reduced Interfering Components: Processing speed, Working memory, Attention - divided, Attention - sustained, Motor planning, Hearing Other: patient was lethargic. Patient was able to answer situational questions with encouragement. Patient was slow to process one step commands however, was able to with repetition and prolonged time. Sensation Overall Sensation Status: Within Functional Limits Bed Mobility Supine to Sit: Verbal cues, Min assist Other: mod assist to scoot. Transfers Sit to Stand: Verbal cues, Min assist (min assist of two.) Stand to Sit: Min assist, Verbal cues Toilet Transfers: Min assist, Verbal cues Gait Gait Distance: initally mod assist to control walker and patient due to lethargy from bed to bathroom. patient was able to ambulate with walker from bathroom to chair with min assist and mod verbal prompts due to endurance. Limiting Factors to Gait: Cognition/difficulty following directions, Decreased safety, Fatigue Balance Sitting Balance: Static: Good (good-) Sitting Balance: Dynamic: Fair (fair+) Standing Balance: Static: Fair (fair-) Standing Balance: Dynamic: Fair (fair-) Other: with external support. RUE Assessment: (generalized weakness.) LUE Assessment: (generalized weakness) Plan Occupational Therapy Care Plan Occupational Therapy Care Plan (Active) Template: OT - Occupational Therapy Problem: Activity Tolerance Dates: Start: 12/16/23 Disciplines: OT Goal: Tolerate 30 minutes of activity WITH rest breaks Dates: Start: 12/16/23 Expected End: 01/15/24 Description: Goal Description: Disciplines: OT Problem: Bathing LB Dates: Start: 12/16/23 Disciplines: OT Goal: Patient will perform bathing LB with Stand By Assist Dates: Start: 12/16/23 Expected End: 01/15/24 Description: Goal Description: Disciplines: OT Problem: Bathing UB Dates: Start: 12/16/23 Disciplines: OT Goal: Patient will perform bathing UB with Set-Up Dates: Start: 12/16/23 Expected End: 01/15/24 Description: Goal Description: Disciplines: OT Problem: Bed Mobility Dates: Start: 12/16/23 Disciplines: OT Goal: Patient will perform bed mobility with Stand By Assist Dates: Start: 12/16/23 Expected End: 01/15/24 Description: Goal Description: Disciplines: OT Problem: Cognition Dates: Start: 12/16/23 Disciplines: OT Goal: Improve cognition Dates: Start: 12/16/23 Expected End: 01/15/24 Description: Patient will engage in cognitive tasks and will demonstrate increased response time, good safety and good problem solving. Disciplines: OT Problem: Dressing LB Dates: Start: 12/16/23 Disciplines: OT Goal: Patient will perform dressing LB with Modified [place] Dates: Start: 12/16/23 Expected End: 01/15/24 Description: Goal Description: Disciplines: OT Problem: Dressing UB Dates: Start: 12/16/23 Disciplines: OT Goal: Patient will perform dressing UB with Modified [place] Dates: Start: 12/16/23 Expected End: 01/15/24 Description: Goal Description: Disciplines: OT Problem: Functional Mobility Dates: Start: 12/16/23 Disciplines: OT Goal: Patient will perform functional mobility with Modified [place] Dates: Start: 12/16/23 Expected End: 01/15/24 Description: Goal Description: Disciplines: OT Problem: Grooming Dates: Start: 12/16/23 Disciplines: OT Goal: Patient will perform grooming with Stand By Assist Dates: Start: 12/16/23 Expected End: 01/15/24 Description: Goal Description: Disciplines: OT Problem: Home Management Dates: Start: 12/16/23 Disciplines: OT Goal: Patient will perform home management with Stand By Assist Dates: Start: 12/16/23 Expected End: 01/15/24 Description: Goal Description: Disciplines: OT Problem: Sitting Balance Dates: Start: 12/16/23 Disciplines: OT Goal: Improve balance to good Dates: Start: 12/16/23 Expected End: 01/15/24 Description: Good dynamic balance. Disciplines: OT Problem: Standing Balance Dates: Start: 12/16/23 Disciplines: OT Goal: Improve balance to good Dates: Start: 12/16/23 Expected End: 01/15/24 Description: Good dynamic balance. Disciplines: OT Problem: Strength Dates: Start: 12/16/23 Disciplines: OT Goal: Improve strength Dates: Start: 12/16/23 Expected End: 01/15/24 Description: Improve bilateral upper extremity strength to functional during ADL tasks. Disciplines: OT Problem: Toilet Transfers Dates: Start: 12/16/23 Disciplines: OT Goal: Patient will perform toilet transfers with Modified [place] Dates: Start: 12/16/23 Expected End: 01/15/24 Description: Goal Description: Disciplines: OT Problem: Toileting Dates: Start: 12/16/23 Disciplines: OT Goal: Patient will perform toileting with Stand By Assist Dates: Start: 12/16/23 Expected End: 01/15/24 Description: Goal Description: Disciplines: OT Problem: Transfers Dates: Start: 12/16/23 Disciplines: OT Goal: Patient will perform transfers with Stand By Assist Dates: Start: 12/16/23 Expected End: 01/15/24 Description: Goal Description: Disciplines: OT Occupational Therapy Care Plan (Resolved) There are no resolved problems. Principal Problem: ICH (intracerebral hemorrhage) ([facility]) Physical Therapy Evaluation Discharge Recommendations PT Recommendations: Shelter Facility SNF/ECF Comments: due to decline in functional mobility with decreased activity tolerance, balance and safety. Pt needs assist for all mobility at this time. 6 Clicks: Basic Mobility Turning from your back to your side while in a flat bed without using bed rails?: A little Moving from lying on your back to sitting on side of flat bed without using bed rails?: A little Moving to and from bed to a chair (including w/c)?: A lot Standing up from a chair using your arms (e.g. w/c or bedside chair)?: A lot To walk in hospital room?: A little Climbing 3-5 steps with a railing?: Total Scoring 6 Clicks: Basic Mobility Raw Score: 14 CMS G Code Modifier: CK Pt is an 83 yo female with hx of CAD/CABG, HTN, DM, chronic vertigo and recent COVID infection. Pt admit from [facility]. Pt was seen at hospital on 12/10 s/p fall at home, pt amnestic to events but found her. Initial CT head (-) and pt kept for observation overnight and discharged to home next day. Family noted slurred speech and returned to hospital where concern for SAH was noted on imaging and pt transferred to [facility]. CT head - small SAH in R precentral sulcus and scattered SAH L temporal and superior cerebellum. Hold ASA due to development of new small bleeds. Cardiology consulted re: possible syncope - Echo WNL Repeat CT brain - stable small SAH No neurosurgical intervention and no activity restrictions. Pt with c/o headache and given Dilaudid last night per RN which may be contributing to her drowsiness this date. No past medical history on file. No past surgical history on file. Therapy Plan Need for skilled Physical Therapy to address deficits in functional mobility due to a status decline resulting from admit for recent fall with scattered subarachnoid hemorrhages. Recommend SNF at discharge as pt not at level safe for discharge to home. PT Treatment/Interventions: Functional transfer training, Patient/family training, Equipment eval/education, Balance, LE strengthening/ROM, Bed mobility, Gait training PT Frequency: 4-5days/week PT Duration: 01/10/24 Patient Response to Treatment: Tolerated evaluation without adverse reaction, Slow progress, decreased activity tolerance, Slow progress, cognitive deficits (Simultaneous filing. User may not have seen previous data.) Assessment Patient Assessment Therapy Problem List: Decreased balance, Decreased cognition, Decreased endurance, Decreased mobility, Decreased safe judgement during ADL, Decreased LE strength (Simultaneous filing. User may not have seen previous data.) Patient Response to Treatment: Tolerated evaluation without adverse reaction, Slow progress, decreased activity tolerance, Slow progress, cognitive deficits (Simultaneous filing. User may not have seen previous data.) Mood/Affect: Flat (Simultaneous filing. User may not have seen previous data.) Rehab Prognosis: Good, With continued PT status post acute discharge (Simultaneous filing. User may not have seen previous data.) Visit RN Communication: Yes Medical Record Reviewed: Yes PT Type of Visit: Evaluation Precautions Activity: act as tolerated, regular diet Equipment: gait belt, wheeled walker, IV, chair alarm Telemetry/Employee Health Nurse: Yes Oxygen Used: room air Other: Fall risk, flat affect, slow to respond Pain Assessment Pain Assessment: No/denies pain Home Living Type of Home: House Home Layout: Two level, Bed/bath upstairs, 1/2 bath on main level, Stairs to enter with rails Stairs to Enter: 2 from back door Hand Rails: Right (grab bar) Stairs in Home: flight to bed/bath Hand Rails in Home: Right Bathroom Shower/Tub: Tub/shower unit Bathroom Toilet: Standard Bathroom Equipment: Shower chair Home Equipment: Cane Other : 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 Dtr reports recently decline in balance and mobility Prior Function Lives With: Spouse (Gene who is in good health) Receives Help From: Family (local dtr Jean and son Lazaro in [place]) Level of Mobility: Independent with ADLs and functional transfers or gait Homemaking Assistance: Independent Other: Pt indep with mobility and ADLs, shares household tasks with and limited driving. ADL / IADL Hand Dominance: Right Hearing / Speech / Vision Hearing: Hard of hearing/hearing concerns, Bilateral hearing aid (HAs not at hospital) Speech: Delayed responses, Slurred Current Vision: Wears glasses only for reading Cognition Overall Cognitive Status: Exceptions to Within Functional Limits Arousal/Alertness: Delayed responses to stimuli Attention Span: Attends with cues to redirect Memory: Decreased recall of biographical information, Decreased recall of recent events, Decreased short term memory Orientation Level: Oriented to person, Oriented to month, Oriented to age, Disoriented to place (Disoriented to year) Following Commands: Follows one step commands with increased time, Follows one step commands with repetition Safety Judgment: Decreased awareness of need for safety Awareness of Errors: Decreased awareness of errors Insight of Deficits: Decreased awareness of deficits Problem Solving: Reduced Interfering Components: Processing speed, Working memory, Attention - divided, Attention - sustained, Motor planning, Hearing Other: Pt drowsy but easily awakens. Needs encouragement and increased time to complete tasks. Sensation Overall Sensation Status: Within Functional Limits Bed Mobility Supine to Sit: Min assist, Visual cues Other: with HOB elevated. Pt needs physical and verbal prompting to move towards EOB. Pt needed mod A to scoot to edge. Pt remained up in chair after session with chair alarm intact Transfers Sit to Stand: Min assist (2 assist) Stand to Sit: Min assist, Verbal cues Bed to Chair: Min assist (2 assist) Toilet Transfers: Min assist (2 assist) Other: with RW support. Cues for hand placement and encouragement Gait Base of Support: Within Functional Limits Pattern: Decreased josselin, R Decreased foot clearance, L Decreased foot clearance Gait Assistance: Min assist, Verbal cues (2 assist) Assistive Device: Rolling walker Gait Distance: Pt amb 12 feet x 2 in room with RW Limiting Factors to Gait: Fatigue, Weakness, Cognition/difficulty following directions Other: Pt needs assist for balance and to guide walker safely. Balance Sitting Balance: Static: Good Sitting Balance: Dynamic: Fair Standing Balance: Static: (Fair-) Standing Balance: Dynamic: (Fair-) Other: with walker support in standing RLE Assessment: (4/5 throughout - generalized weakness) LLE Assessment: (4/5 throughout - generalized weakness) Activity Tolerance Endurance: Tolerates <30 minutes activity WITHOUT vital sign changes (Simultaneous filing. User may not have seen previous data.) Other: SpO2 stable on room air (Simultaneous filing. User may not have seen previous data.) Plan Physical Therapy Care Plan Physical Therapy Care Plan (Active) Template: PT - Physical Therapy Problem: Activity Tolerance Dates: Start: 12/16/23 Disciplines: PT Goal: Tolerate > 30 minutes of activity WITH rest breaks Dates: Start: 12/16/23 Expected End: 01/10/24 Description: Goal Description: For seated and standing activities for improved mobility Disciplines: PT Problem: Bed Mobility Dates: Start: 12/16/23 Disciplines: PT Goal: Patient will perform bed mobility with Supervision Dates: Start: 12/16/23 Expected End: 01/10/24 Description: Goal Description: Disciplines: PT Problem: Gait Dates: Start: 12/16/23 Disciplines: PT Goal: Patient will perform gait with Stand By Assist Dates: Start: 12/16/23 Expected End: 01/10/24 Description: 150 feet with RW support for safe mobility in home Goal Description: Disciplines: PT Problem: Standing Balance Dates: Start: 12/16/23 Disciplines: PT Goal: Improve balance to good Dates: Start: 12/16/23 Expected End: 01/10/24 Description: Static Dynamic with UE support as needed for safe mobility, decreased fall risk Disciplines: PT Problem: Transfers Dates: Start: 12/16/23 Disciplines: PT Goal: Patient will perform transfers with Supervision Dates: Start: 12/16/23 Expected End: 01/10/24 Description: Goal Description: with RW support Disciplines: PT Physical Therapy Care Plan (Resolved) There are no resolved problems. Principal Problem: ICH (intracerebral hemorrhage) ([facility]) Problem: Pain Goal: Patient goal is pain score less than 4, able to rest, and participant in treatment plan as appropriate Description: INTERVENTIONS: 1. Encourage patient or legal termite control service representative to report early pain and ask for pain medicine when needed 2. Assess pain using appropriate pain scale and include the scale used when documenting 3. Administer analgesics based on type and severity of pain and evaluate response within appropriate time frame 4. Implement non-pharmacological measures as appropriate and evaluate response 5. Consider cultural and social influences on pain and pain management 6. Notify LIP if interventions ineffective or patient reports new pain 7. Monitor vital signs including pulse ox, end-tidal CO2 based on pain intervention 8. Reassess pain per policy 9. Teach patient or legal termite control service representative interventions for comforting Outcome: Progressing Note: Evaluation of progress towards goal: pain control Problem: Safety Goal: Patient will be injury free during hospitalization Description: INTERVENTIONS: 1. Assess patient's risk for falls and implement fall prevention plan of care per policy 2. Provide and maintain a safe environment 3. Proper use of double Identifiers 4. Medication administration using the 5 rights 5. Hand hygiene 6. Specimens are labeled at the bedside 7. Instruct patient/ patient termite control service representative about use of safety devices 8. Include patient/ patient termite control service representative in decisions related to safety Outcome: Progressing Note: Evaluation of progress towards goal: fall risk Problem: Infection Goal: Absence of infection during hospitalization Description: Interventions: 1. Assess and monitor for signs and symptoms of infection 2. Monitor lab/diagnostic results 3. Monitor all insertion sites i.e., indwelling lines, tubes and drains 4. Monitor endotracheal (as able) and nasal secretions for changes in amount and color 5. Administer medications as ordered 6. Instruct and encourage patient and family to use good hand hygiene technique 7. Identify and instruct patient/patient termite control service representative in use of appropriate isolation precautions for identified infection/symptoms 8. Provide and discuss with patient/patient termite control service representative on educational MDRO sheet 9. Encourage and monitor nutritional status daily and consult wholesale loan processor if indicated 10. Implement neutropenic guidelines as needed 11. Review exposure to history of communicable disease and recent travel history on admission 12. Encourage annual influenza vaccine 13. Encourage pneumonia vaccine Outcome: Progressing Note: Evaluation of progress towards goal: Brief Neurosurgery Note Repeat CT imaging remains stable. There are no neurosurgical interventions warranted. Continue Keppra x 7 days for seizure prophylaxis. SBP < 140. No activity restrictions from NS standpoint. Ok for chemical DVT prophylaxis. Neurosurgery will sign off at this time. No formal follow up warranted. Please call with any further needs. Jodie KRAFT [facility] Contact via patient touch 12/15/23 1:08 PM SWAPNIL Herrera 12/15/23 [id number] Problem: Pain Goal: Patient goal is pain score less than 4, able to rest, and participant in treatment plan as appropriate Description: INTERVENTIONS: 1. Encourage patient or legal termite control service representative to report early pain and ask for pain medicine when needed 2. Assess pain using appropriate pain scale and include the scale used when documenting 3. Administer analgesics based on type and severity of pain and evaluate response within appropriate time frame 4. Implement non-pharmacological measures as appropriate and evaluate response 5. Consider cultural and social influences on pain and pain management 6. Notify LIP if interventions ineffective or patient reports new pain 7. Monitor vital signs including pulse ox, end-tidal CO2 based on pain intervention 8. Reassess pain per policy 9. Teach patient or legal termite control service representative interventions for comforting Outcome: Progressing Note: Evaluation of progress towards goal: pain controlled with prn meds Problem: Pain Goal: Patient goal is pain score less than 4, able to rest, and participant in treatment plan as appropriate Description: INTERVENTIONS: 1. Encourage patient or legal termite control service representative to report early pain and ask for pain medicine when needed 2. Assess pain using appropriate pain scale and include the scale used when documenting 3. Administer analgesics based on type and severity of pain and evaluate response within appropriate time frame 4. Implement non-pharmacological measures as appropriate and evaluate response 5. Consider cultural and social influences on pain and pain management 6. Notify LIP if interventions ineffective or patient reports new pain 7. Monitor vital signs including pulse ox, end-tidal CO2 based on pain intervention 8. Reassess pain per policy 9. Teach patient or legal termite control service representative interventions for comforting Outcome: Progressing Note: Evaluation of progress towards goal: PRN medications controlling pain during this shift. Problem: Safety Goal: Patient will be injury free during hospitalization Description: INTERVENTIONS: 1. Assess patient's risk for falls and implement fall prevention plan of care per policy 2. Provide and maintain a safe environment 3. Proper use of double Identifiers 4. Medication administration using the 5 rights 5. Hand hygiene 6. Specimens are labeled at the bedside 7. Instruct patient/ patient termite control service representative about use of safety devices 8. Include patient/ patient termite control service representative in decisions related to safety Outcome: Progressing Note: Evaluation of progress towards goal: No falls or injuries during this shift. Bed is locked, in low position, and bedside rails are up x3. Will continue to monitor patient frequently and maintain a safe environment. Problem: Infection Goal: Absence of infection during hospitalization Description: Interventions: 1. Assess and monitor for signs and symptoms of infection 2. Monitor lab/diagnostic results 3. Monitor all insertion sites i.e., indwelling lines, tubes and drains 4. Monitor endotracheal (as able) and nasal secretions for changes in amount and color 5. Administer medications as ordered 6. Instruct and encourage patient and family to use good hand hygiene technique 7. Identify and instruct patient/patient termite control service representative in use of appropriate isolation precautions for identified infection/symptoms 8. Provide and discuss with patient/patient termite control service representative on educational MDRO sheet 9. Encourage and monitor nutritional status daily and consult wholesale loan processor if indicated 10. Implement neutropenic guidelines as needed 11. Review exposure to history of communicable disease and recent travel history on admission 12. Encourage annual influenza vaccine 13. Encourage pneumonia vaccine Outcome: Progressing Note: Evaluation of progress towards goal: Patient afebrile at this time and vital signs stable. No signs or symptoms of infection. Problem: Knowledge Deficit Goal: Patient/patient termite control service representative demonstrates understanding of disease process, treatment plan, medications, and discharge instructions Description: INTERVENTIONS 1. Complete learning assessment and assess knowledge base 2. Provide teaching at level of understanding 3. Provide teaching via preferred learning method(s) Outcome: Progressing Note: Evaluation of progress towards goal: Assessment of best learning methods and knowledge base completed.Teaching provided at patient's and patient's family's level of understanding, and via patient's and patient's family's preferred learning methods when applicable. Problem: Discharge Planning Goal: Discharge to post-acute care, other facility, or home with appropriate resources Description: Patient's goal is: INTERVENTIONS 1. Conduct assessment to determine patient/family and health care team treatment goals, and need for post-acute services based on payer coverage, community resources, and patient preferences, and barriers to discharge 2. Coordinate with Social work, Care Navigation, and Utilization Review to arrange appropriate level of services according to patient's needs based on patient preference and payer coverage in collaboration with the physician and health care team 3. Address psychosocial, clinical, and financial barriers to discharge as identified in assessment in conjunction with the patient/family and health care team 4. Consult appropriate ancillary services (i.e.. PT/OT/ST, etc) as needed 5. Communicate with and update the patient/family, physician, and health care team regarding progress on the discharge plan 6. Identify discharge learning needs (meds, wound care, etc). 7. Arrange for needed discharge transportation as appropriate Outcome: Progressing Note: Evaluation of progress towards goal: Patient does not qualify for discharge at this time. Discharge planning is readdressed every shift by providers and primary nurse. Problem: Moderate - High Risk Fall Score Description: Coleman Fall Score of =/> 25 or indicated by [facility] Assessment Goal: Patient should be free from fall Description: Interventions: 1. [place] to environment 2. Hourly rounds addressing the 4 P's (Pain, Positioning, Possessions, Potty) 3. Clear area of hazards (spills, clutter, electrical cords, unnecessary equipment) 4. Place equipment (bed & TV controls, call light, phone, urinal) within reach 5. Encourage patient to wear glasses and hearing aides as appropriate 6. Maintain bed in lowest position 7. Lock wheels on bed/wheelchair 8. Provide adequate lighting, including night light 9. Assess need for additional bedding, food/fluids, pain med's prior to sleep/routinely 10. Provide gripper slippers or personal non-skid footwear 11. Teach patient and patient termite control service representative to maintain environment for safety and engage in all aspects of fall prevention program 12. Remind patient to call for help before getting out of bed 13. Initiate bed/chair/exit alarms supportive devices as appropriate, (chair wedge, no-skid floor mat, raised edge mattress, hip protectors) 14. Locate patient bed assignment for optimal visualization 15. Evaluate and identify Safe Patient Handling Equipment needs 16. Provide supervision when out of bed or chair 17. Utilize gait belt as needed to assist with ambulation 18. Place adaptive equipment (cane, walker) within reach 19. Request patient termite control service representative bring adaptive equipment/mobility aids from home or obtain and provide as needed 20. Consult pharmacy regarding effects of med's affecting mobility, cognition, and alternatives 21. Obtain physician order for PT if risk factors associated with mobility are present 22. Obtain physician order for OT as appropriate 23. Utilize diversional activities 24. Educate patient and patient termite control service representative how to maintain a safe environment during visitation times (notify nurse prior to leaving bedside) 25. Consider appropriateness of medical or non-neuropsychology medical consultant 26. Set up voiding schedule as appropriate (every 2 hours) Outcome: Progressing Note: Evaluation of progress towards goal: No falls or injuries during this shift. Bed is locked, in low position, and bedside rails are up x3. Will continue to monitor patient frequently and maintain a safe environment. Problem: Potential for Compromised Skin Integrity Goal: Skin integrity is maintained or improved Description: Patient's goal is: INTERVENTIONS 1. Perform initial skin assessment on admission and as needed 2. Turn patient every 2 hours and PRN 3. Relieve pressure to bony prominences 4. Avoid shearing 5. Keep skin clean and dry 6. Alternate a full bath with partial baths for elderly 7. Apply lotion/moisturizer on skin 8. Monitor patient's hygiene practices 9. Float heels 10. Collaborate with interdisciplinary team and initiate plans and interventions as needed Outcome: Progressing Note: Evaluation of progress towards goal: Skin assessment performed during shift, patient turning per protocol and PRN, patient's skin is kept clean and dry. Goal: Patient's nutritional intake is adequate Description: Patient's goal is: INTERVENTIONS 1. Assess and monitor food intake and supplements, patient food preferences, nausea, vomiting, labs, oral cavity (gums, teeth, tongue, mucosa), proper denture fit, and cultural beliefs 2. Monitor for signs of hypoglycemia and hyperglycemia 3. Collaborate with interdisciplinary team and initiate plan and interventions as ordered 4. Monitor patient's weight 5. Assist patient with meals/food selection 6. Assist patient with eating 7. Allow adequate time for meals 8. Provide pleasant environment during mealtime 9. Increase social contact during mealtimes 10. Plan activities to conserve energy 11. Encourage/perform oral hygiene as appropriate 12. Encourage patient to take dietary supplement as ordered 13. Collaborate with clinical wholesale loan processor 14. Include patient/ patient's termite control service representative in decisions related to nutrition Outcome: Progressing Note: Evaluation of progress towards goal: Nutritional intake is being assessed and monitored. Patient is currently tolerating their ordered diet. Problem: Urinary Incontinence Goal: Perineal skin integrity is maintained or improved Description: INTERVENTIONS 1. Assess genitourinary system, perineal skin, labs (urinalysis), and history of incontinence to include past management, aggravating, and alleviating factors 2. Keep skin clean and dry 3. Apply skin protectant 4. Develop skin care regimen 5. Provide privacy when changing patients incontinence device to maintain their dignity 6. Consider placing an indwelling catheter 7. Collaborate with interdisciplinary team and initiate plans and interventions as needed Outcome: Progressing Note: Evaluation of progress towards goal: Skin assessment performed during shift, patient turning per protocol and PRN, patient's skin is kept clean and dry. Problem: Pain Goal: Patient goal is pain score less than 4, able to rest, and participant in treatment plan as appropriate Description: INTERVENTIONS: 1. Encourage patient or legal termite control service representative to report early pain and ask for pain medicine when needed 2. Assess pain using appropriate pain scale and include the scale used when documenting 3. Administer analgesics based on type and severity of pain and evaluate response within appropriate time frame 4. Implement non-pharmacological measures as appropriate and evaluate response 5. Consider cultural and social influences on pain and pain management 6. Notify LIP if interventions ineffective or patient reports new pain 7. Monitor vital signs including pulse ox, end-tidal CO2 based on pain intervention 8. Reassess pain per policy 9. Teach patient or legal termite control service representative interventions for comforting Outcome: Progressing Note: Evaluation of progress towards goal: Patient currently denies pain. Patient encouraged to communicate with staff if pain occurs.Care changes. Problem: Safety Goal: Patient will be injury free during hospitalization Description: INTERVENTIONS: 1. Assess patient's risk for falls and implement fall prevention plan of care per policy 2. Provide and maintain a safe environment 3. Proper use of double Identifiers 4. Medication administration using the 5 rights 5. Hand hygiene 6. Specimens are labeled at the bedside 7. Instruct patient/ patient termite control service representative about use of safety devices 8. Include patient/ patient termite control service representative in decisions related to safety Outcome: Progressing Note: Evaluation of progress towards goal: Patient safety maintained, call light in reach, area clear of hazards, hourly rounding continued, bed locked in lowest position, alarm on as applicable, non skid socks on, safety educated completed with patient/family, no injuries noted at this time. Problem: Infection Goal: Absence of infection during hospitalization Description: Interventions: 1. Assess and monitor for signs and symptoms of infection 2. Monitor lab/diagnostic results 3. Monitor all insertion sites i.e., indwelling lines, tubes and drains 4. Monitor endotracheal (as able) and nasal secretions for changes in amount and color 5. Administer medications as ordered 6. Instruct and encourage patient and family to use good hand hygiene technique 7. Identify and instruct patient/patient termite control service representative in use of appropriate isolation precautions for identified infection/symptoms 8. Provide and discuss with patient/patient termite control service representative on educational MDRO sheet 9. Encourage and monitor nutritional status daily and consult wholesale loan processor if indicated 10. Implement neutropenic guidelines as needed 11. Review exposure to history of communicable disease and recent travel history on admission 12. Encourage annual influenza vaccine 13. Encourage pneumonia vaccine Outcome: Progressing Note: Evaluation of progress towards goal: Patient not currently receiving any treatment for infection. Care continues, along with collaboration with care team in regards to abnormal labs. Problem: Knowledge Deficit Goal: Patient/patient termite control service representative demonstrates understanding of disease process, treatment plan, medications, and discharge instructions Description: INTERVENTIONS 1. Complete learning assessment and assess knowledge base 2. Provide teaching at level of understanding 3. Provide teaching via preferred learning method(s) Outcome: Progressing Note: Evaluation of progress towards goal: Care plan discussed & goals for shift set with patient input appreciated. All questions answered. Problem: Discharge Planning Goal: Discharge to post-acute care, other facility, or home with appropriate resources Description: Patient's goal is: INTERVENTIONS 1. Conduct assessment to determine patient/family and health care team treatment goals, and need for post-acute services based on payer coverage, community resources, and patient preferences, and barriers to discharge 2. Coordinate with Social work, Care Navigation, and Utilization Review to arrange appropriate level of services according to patient's needs based on patient preference and payer coverage in collaboration with the physician and health care team 3. Address psychosocial, clinical, and financial barriers to discharge as identified in assessment in conjunction with the patient/family and health care team 4. Consult appropriate ancillary services (i.e.. PT/OT/ST, etc) as needed 5. Communicate with and update the patient/family, physician, and health care team regarding progress on the discharge plan 6. Identify discharge learning needs (meds, wound care, etc). 7. Arrange for needed discharge transportation as appropriate Outcome: Progressing Note: Evaluation of progress towards goal: Discharge planning in progress with appropriate multidisciplinary teams. Problem: Moderate - High Risk Fall Score Description: Coleman Fall Score of =/> 25 or indicated by [facility] Assessment Goal: Patient should be free from fall Description: Interventions: 1. [place] to environment 2. Hourly rounds addressing the 4 P's (Pain, Positioning, Possessions, Potty) 3. Clear area of hazards (spills, clutter, electrical cords, unnecessary equipment) 4. Place equipment (bed & TV controls, call light, phone, urinal) within reach 5. Encourage patient to wear glasses and hearing aides as appropriate 6. Maintain bed in lowest position 7. Lock wheels on bed/wheelchair 8. Provide adequate lighting, including night light 9. Assess need for additional bedding, food/fluids, pain med's prior to sleep/routinely 10. Provide gripper slippers or personal non-skid footwear 11. Teach patient and patient termite control service representative to maintain environment for safety and engage in all aspects of fall prevention program 12. Remind patient to call for help before getting out of bed 13. Initiate bed/chair/exit alarms supportive devices as appropriate, (chair wedge, no-skid floor mat, raised edge mattress, hip protectors) 14. Locate patient bed assignment for optimal visualization 15. Evaluate and identify Safe Patient Handling Equipment needs 16. Provide supervision when out of bed or chair 17. Utilize gait belt as needed to assist with ambulation 18. Place adaptive equipment (cane, walker) within reach 19. Request patient termite control service representative bring adaptive equipment/mobility aids from home or obtain and provide as needed 20. Consult pharmacy regarding effects of med's affecting mobility, cognition, and alternatives 21. Obtain physician order for PT if risk factors associated with mobility are present 22. Obtain physician order for OT as appropriate 23. Utilize diversional activities 24. Educate patient and patient termite control service representative how to maintain a safe environment during visitation times (notify nurse prior to leaving bedside) 25. Consider appropriateness of medical or non-neuropsychology medical consultant 26. Set up voiding schedule as appropriate (every 2 hours) Outcome: Progressing Note: Evaluation of progress towards goal: Fall risk assessment preformed and safety measures in place. Education given to family/patient. Care continues. Problem: Potential for Compromised Skin Integrity Goal: Skin integrity is maintained or improved Description: Patient's goal is: INTERVENTIONS 1. Perform initial skin assessment on admission and as needed 2. Turn patient every 2 hours and PRN 3. Relieve pressure to bony prominences 4. Avoid shearing 5. Keep skin clean and dry 6. Alternate a full bath with partial baths for elderly 7. Apply lotion/moisturizer on skin 8. Monitor patient's hygiene practices 9. Float heels 10. Collaborate with interdisciplinary team and initiate plans and interventions as needed Outcome: Progressing Note: Evaluation of progress towards goal: Patient repositioned Q2 hrs. Monitor for s/s of skin breakdown and treat/communicate with treatment team as needed. Goal: Patient's nutritional intake is adequate Description: Patient's goal is: INTERVENTIONS 1. Assess and monitor food intake and supplements, patient food preferences, nausea, vomiting, labs, oral cavity (gums, teeth, tongue, mucosa), proper denture fit, and cultural beliefs 2. Monitor for signs of hypoglycemia and hyperglycemia 3. Collaborate with interdisciplinary team and initiate plan and interventions as ordered 4. Monitor patient's weight 5. Assist patient with meals/food selection 6. Assist patient with eating 7. Allow adequate time for meals 8. Provide pleasant environment during mealtime 9. Increase social contact during mealtimes 10. Plan activities to conserve energy 11. Encourage/perform oral hygiene as appropriate 12. Encourage patient to take dietary supplement as ordered 13. Collaborate with clinical wholesale loan processor 14. Include patient/ patient's termite control service representative in decisions related to nutrition Outcome: Progressing Note: Evaluation of progress towards goal: Pt nutritional needs monitored and addressed as ordered by physician. Dietary recommendations appreciated as ordered. Problem: Urinary Incontinence Goal: Perineal skin integrity is maintained or improved Description: INTERVENTIONS 1. Assess genitourinary system, perineal skin, labs (urinalysis), and history of incontinence to include past management, aggravating, and alleviating factors 2. Keep skin clean and dry 3. Apply skin protectant 4. Develop skin care regimen 5. Provide privacy when changing patients incontinence device to maintain their dignity 6. Consider placing an indwelling catheter 7. Collaborate with interdisciplinary team and initiate plans and interventions as needed Outcome: Progressing Note: Evaluation of progress towards goal: Perineal skin integrity remains clean, dry, and intact with no redness or s/s of breakdown. Skin care regimen considered as needed. Collaboration with interdisciplinary teams considered as needed. Problem: Pain Goal: Patient goal is pain score less than 4, able to rest, and participant in treatment plan as appropriate Description: INTERVENTIONS: 1. Encourage patient or legal termite control service representative to report early pain and ask for pain medicine when needed 2. Assess pain using appropriate pain scale and include the scale used when documenting 3. Administer analgesics based on type and severity of pain and evaluate response within appropriate time frame 4. Implement non-pharmacological measures as appropriate and evaluate response 5. Consider cultural and social influences on pain and pain management 6. Notify LIP if interventions ineffective or patient reports new pain 7. Monitor vital signs including pulse ox, end-tidal CO2 based on pain intervention 8. Reassess pain per policy 9. Teach patient or legal termite control service representative interventions for comforting Outcome: Progressing Note: Evaluation of progress towards goal: acetaminophen as needed;headache continues Problem: Safety Goal: Patient will be injury free during hospitalization Description: INTERVENTIONS: 1. Assess patient's risk for falls and implement fall prevention plan of care per policy 2. Provide and maintain a safe environment 3. Proper use of double Identifiers 4. Medication administration using the 5 rights 5. Hand hygiene 6. Specimens are labeled at the bedside 7. Instruct patient/ patient termite control service representative about use of safety devices 8. Include patient/ patient termite control service representative in decisions related to safety Outcome: Progressing Note: Evaluation of progress towards goal: no injury noted Problem: Infection Goal: Absence of infection during hospitalization Description: Interventions: 1. Assess and monitor for signs and symptoms of infection 2. Monitor lab/diagnostic results 3. Monitor all insertion sites i.e., indwelling lines, tubes and drains 4. Monitor endotracheal (as able) and nasal secretions for changes in amount and color 5. Administer medications as ordered 6. Instruct and encourage patient and family to use good hand hygiene technique 7. Identify and instruct patient/patient termite control service representative in use of appropriate isolation precautions for identified infection/symptoms 8. Provide and discuss with patient/patient termite control service representative on educational MDRO sheet 9. Encourage and monitor nutritional status daily and consult wholesale loan processor if indicated 10. Implement neutropenic guidelines as needed 11. Review exposure to history of communicable disease and recent travel history on admission 12. Encourage annual influenza vaccine 13. Encourage pneumonia vaccine Outcome: Progressing Note: Evaluation of progress towards goal: daily CBC monitored Problem: Knowledge Deficit Goal: Patient/patient termite control service representative demonstrates understanding of disease process, treatment plan, medications, and discharge instructions Description: INTERVENTIONS 1. Complete learning assessment and assess knowledge base 2. Provide teaching at level of understanding 3. Provide teaching via preferred learning method(s) Outcome: Progressing Note: Evaluation of progress towards goal: family at bedside is updated on plan of care by trauma,cardiology and neurosurgery Problem: Discharge Planning Goal: Discharge to post-acute care, other facility, or home with appropriate resources Description: Patient's goal is: INTERVENTIONS 1. Conduct assessment to determine patient/family and health care team treatment goals, and need for post-acute services based on payer coverage, community resources, and patient preferences, and barriers to discharge 2. Coordinate with Social work, Care Navigation, and Utilization Review to arrange appropriate level of services according to patient's needs based on patient preference and payer coverage in collaboration with the physician and health care team 3. Address psychosocial, clinical, and financial barriers to discharge as identified in assessment in conjunction with the patient/family and health care team 4. Consult appropriate ancillary services (i.e.. PT/OT/ST, etc) as needed 5. Communicate with and update the patient/family, physician, and health care team regarding progress on the discharge plan 6. Identify discharge learning needs (meds, wound care, etc). 7. Arrange for needed discharge transportation as appropriate Outcome: Progressing Note: Evaluation of progress towards goal: ongoing needs assessed;appropriate consults in place Problem: Moderate - High Risk Fall Score Description: Coleman Fall Score of =/> 25 or indicated by [facility] Assessment Goal: Patient should be free from fall Description: Interventions: 1. [place] to environment 2. Hourly rounds addressing the 4 P's (Pain, Positioning, Possessions, Potty) 3. Clear area of hazards (spills, clutter, electrical cords, unnecessary equipment) 4. Place equipment (bed & TV controls, call light, phone, urinal) within reach 5. Encourage patient to wear glasses and hearing aides as appropriate 6. Maintain bed in lowest position 7. Lock wheels on bed/wheelchair 8. Provide adequate lighting, including night light 9. Assess need for additional bedding, food/fluids, pain med's prior to sleep/routinely 10. Provide gripper slippers or personal non-skid footwear 11. Teach patient and patient termite control service representative to maintain environment for safety and engage in all aspects of fall prevention program 12. Remind patient to call for help before getting out of bed 13. Initiate bed/chair/exit alarms supportive devices as appropriate, (chair wedge, no-skid floor mat, raised edge mattress, hip protectors) 14. Locate patient bed assignment for optimal visualization 15. Evaluate and identify Safe Patient Handling Equipment needs 16. Provide supervision when out of bed or chair 17. Utilize gait belt as needed to assist with ambulation 18. Place adaptive equipment (cane, walker) within reach 19. Request patient termite control service representative bring adaptive equipment/mobility aids from home or obtain and provide as needed 20. Consult pharmacy regarding effects of med's affecting mobility, cognition, and alternatives 21. Obtain physician order for PT if risk factors associated with mobility are present 22. Obtain physician order for OT as appropriate 23. Utilize diversional activities 24. Educate patient and patient termite control service representative how to maintain a safe environment during visitation times (notify nurse prior to leaving bedside) 25. Consider appropriateness of medical or non-neuropsychology medical consultant 26. Set up voiding schedule as appropriate (every 2 hours) Outcome: Progressing Note: Evaluation of progress towards goal: no falls,call light within reach Physical Therapy (P) CANCEL - Deferred (Hold at this time per Duyen VELEZ pt not feeling well.) Will check back as appropriate. Occupational Therapy CANCEL - Deferred (spoke with ROSIE Geller, patient is not having the best day, would like therapy to hold today) Speech Therapy Speech & Language Cognitive Evaluation and Treatment Note Impressions Receptive Language: Mild Expressive Language: Moderate, With dysarthria, Mild-moderate Cognitive Linguistic: Moderate Recommendations Discharge Recommendations: (continued speech services) Rehab Therapy Type: Individual treatment Plan Frequency: 2-3days/week Duration: until discharge Treatments/Modalities: Strategies/techniques training Need for skilled Speech Language Pathology Services to address deficits in speech/language/cognition due to a status decline resulting from intracerebral hemorrhage. Pt, pt's family, and RN educated on results and recommendations of evaluation. Pt responds well to increased processing time, verbal cues, repetition, and semantic cues. Will continue to follow along. Prognosis Services: Skilled MINE INSPECTOR services to address the above deficits Prognosis/Potential: Good Considerations: Age, Ability to learn, Previous level of function Assessment Oral/Motor Overall Oral/Motor Status: Exceptions to Within Functional Limits Labial ROM: Reduced Labial Strength: Reduced Lingual ROM: Reduced Lingual Strength: Reduced Facial Strength: Reduced Intelligibility: Intelligibility reduced Intelligibility Rating: Mild, Moderate Breath Support: Adequate for speech Dentition: Adequate Xerostomia: No Hearing: Hard of hearing/hearing concerns Cranial Nerve Screening CN VII (facial): Reduced facial movements CN XII (hypoglossal): Reduced tongue movements Auditory Comprehension Overall Auditory Comphension Status: Exceptions to Within Functional Limits Paragraph: Mild Perception Overall Perception Status: Exceptions to Within Functional Limits Initiation: Cues to initiate tasks Visual Recognition Overall Visual Recognition Status: Within Functional Limits Expression Overall Expression Status: Exceptions to Within Functional Limits Primary Mode of Expression: Verbal Verbal Expression Overall Verbal Expression Status: Exceptions to Within Functional Limits Automatics: Impairment Naming: Impairment Convergent: Mild Divergent: Moderate Speech Production Overall Speech Production: Exceptions to Within Functional Limits Words: Mild Phrases: Mild, Moderate Sentences: Mild, Moderate Dysarthria: Present Voice Evaluation Overall Voice Impairment Severity: None Pragmatics/Social Functioning Overall Pragmatic Status: Within Functional Limits Fluency Comments: no dysfluencies noted High Level Language Overall High Level Language Status: Exceptions to Within Functional Limits Attention: Exceptions to WFL Alternating Attention: Mild Divided Attention: Mild Selective Attention: Mild Sustained Attention: Mild Memory: Exceptions to WFL Immediate Memory: Mild Short-term Memory: Moderate Problem Solving: Exceptions to WFL Complex Functional Tasks: Moderate Verbal Reasoning Skills: Mild Numeric Reasoning: Exceptions to WFL Complex Calculations: Moderate Abstract Reasoning: Mild Inductive Reasoning: Moderate Deductive Reasoning: Moderate Flexibility of Thought: Reduced flexibility Organization: Moderately disorganized Cognition Overall Cognitive Status: Exceptions to Within Functional Limits Memory: Decreased immediate memory, Decreased short term memory Orientation Level: Oriented X4 Problem Solving: Assistance required to generate solutions, Assistance required to implement solutions Pain Assessment Pain Assessment: No/denies pain Plan Diagnosis Code Language: R48.8 Other symbolic dysfunction/acalculia/agraphia Speech Therapy Care Plan Speech Therapy Care Plan (Active) Template: ST - Reh Speech Problem: Auditory Comprehension Dates: Start: 12/14/23 Disciplines: MINE INSPECTOR Goal: LTG: Patient will comprehend communication related to basic medical and social needs and utilize compensatory strategies to maintain safety in a functional living environment Dates: Start: 12/14/23 Expected End: 01/14/24 Disciplines: MINE INSPECTOR Goal: STG: Patient will complete complex, paragraph level auditory comprehension tasks with 90% accuracy with minimal cueing Dates: Start: 12/14/23 Expected End: 01/14/24 Disciplines: MINE INSPECTOR Problem: Cognitive Linguistic Dates: Start: 12/14/23 Disciplines: MINE INSPECTOR Goal: LTG: Patient will display functional cognitive-linguistic skills to demonstrate appropriate communication and safety within daily activities in a functional living environment Dates: Start: 12/14/23 Expected End: 01/14/24 Disciplines: MINE INSPECTOR Goal: STG: Patient will describe/demonstrate/initiate use of 3 memory strategies with minimal cueing Dates: Start: 12/14/23 Expected End: 01/14/24 Disciplines: MINE INSPECTOR Problem: High Level Language Dates: Start: 12/14/23 Disciplines: MINE INSPECTOR Goal: LTG: Patient will demonstrate use of self-awareness, goal setting, planning, initiation, self-monitoring and problem solving during daily activities to improve safety and awareness in a functional living environment Dates: Start: 12/14/23 Expected End: 01/14/24 Disciplines: MINE INSPECTOR Goal: STG: Patient will complete simple to complex organization, scheduling, planning and reasoning tasks to improve problem solving and safety awareness with 90% accuracy with minimal cueing Dates: Start: 12/14/23 Expected End: 01/14/24 Disciplines: MINE INSPECTOR Problem: Speech Production Dates: Start: 12/14/23 Disciplines: MINE INSPECTOR Goal: LTG: Patient will develop functional and intelligible speech and utilize compensatory strategies through the use of adequate labial and lingual function, increased articulatory precision and speech prosody Dates: Start: 12/14/23 Expected End: 01/14/24 Disciplines: MINE INSPECTOR Goal: STG: Patient will use appropriate articulatory accuracy and speech rate when reading/speaking with 90% accuracy with minimal cueing Dates: Start: 12/14/23 Expected End: 01/14/24 Disciplines: MINE INSPECTOR Goal: STG: Patient will complete rapid alternating verbal sequences (tongue twisters) with improved articulatory precision with 90% accuracy with minimal cueing Dates: Start: 12/14/23 Expected End: 01/14/24 Disciplines: MINE INSPECTOR Problem: Verbal Expression Dates: Start: 12/14/23 Disciplines: MINE INSPECTOR Goal: LTG: Patient will utilize compensatory strategies to communicate wants and needs effectively to different conversational partners, maintain safety and participate socially in a functional living environment Dates: Start: 12/14/23 Expected End: 01/14/24 Disciplines: MINE INSPECTOR Goal: STG: Patient will complete simple to complex divergent and convergent naming tasks with 90% accuracy with minimal cueing to improve thought organization Dates: Start: 12/14/23 Expected End: 01/14/24 Disciplines: MINE INSPECTOR Speech Therapy Care Plan (Resolved) There are no resolved problems. Principal Problem: ICH (intracerebral hemorrhage) ([facility]) Physical Therapy (P) [facility]CEL - Deferred (Awaiting NS consult regarding new ICH bleed) Will check back as appropriate. Occupational Therapy CANCEL - Deferred (patient has ICH and awaiting neurosurgery consult) documented in this encounter [facility] 12-20-2023 Hospital course Narrative [facility] TRAUMA SURGERY-DISCHARGE SUMMARY DISCHARGE NOTE / SUMMARY Patient ID: Kelin Rosenberg : 1940 Acct: [id number] Patient's PCP: NO PCP, NO PCP Admit Date: 12/14/2023 Discharge Date: 12/20/2023 Admitting Physician: Kyle Horton MD Consults: Neurosurgery (NSx) and Cardiology Discharge Diagnoses/Chief Complaint: Syncopal fall Primary Problem ICH (intracerebral hemorrhage) ([facility]) Patient Active Problem List Diagnosis Date Noted ICH (intracerebral hemorrhage) ([facility]) 12/14/2023 No past medical history on file. HOSPITAL COURSE SUMMARY: Kelin Rosenberg is an 83 y.o. White or female states on Tuesday her reports that she fell in the living room. She is amnestic to events. She was initially taken to [facility] and had a CTH which was read as negative and she was admitted for observation status overnight and sent home the following morning. Family later noticed she had slurred speech and she was taken back to the hospital and found that she did have a subarachnoid on original imaging. They spoke with [facility] Stroke - felt this was traumatic, she was transferred to [facility] for definitive care. On arrival she [...] 70 Resp: 24 BP: 115/58 Temp: 36.2 C (97.2 F) All home medications restarted at time of discharge with exception of ASA which is to be held for 10 days following injury. Treatments: none * No surgery found * Discharged Condition: Stable DISCHARGE INSTRUCTIONS: Discharge Medications: Your medication list START taking these medications Instructions Last Dose Given Next Dose Due ahgfmklolw-iqrppjxrozeri-cjaz 50-325-40 mg per tablet Commonly known as: [...] Your Medications These medications were sent to [facility] - [place], [place] - [address] [place] [address] levETIRAcetam 500 mg tablet You can get these medications from any pharmacy Bring a paper prescription for each of these medications lgqvatdclz-frydefgytwmjn-yxbp 50-325-40 mg per tablet Information about where to get these medications is not yet available Ask your nurse or doctor about these medications aspirin 81 mg sennosides-docusate sodium 8.6-50 mg Additional Discharge Instructions: none Scheduled Outpatient Follow Up: No future appointments. Follow-up Information Jimmie Burkett MD Follow up. JENNIFER KC MD Follow up. Specialty: Family Medicine Contact information: [facility] [address] NO PCP, NO PCP . Specialty: Family Medicine Contact information: [facility] [address] Time spent: >30min VIKI GORDON 12/20/23 1:44 PM VIKI Gordon 12/20/23 1348 documented in this encounter [facility] 12-20-2023 Progress note Formatting of t his note might be different from the original. DISCHARGE PLANNING NOTE [facility] transport via PTN confirmed in [facility] to [facility] 9.3.24 at 4:00pm [facility] 12-20-2023 Progress note Formatting of t his note might be different from the original. DISCHARGE PLANNING NOTE Updates to [facility] (P#: ; F#: ) [facility] 12-20-2023 Progress note Formatting of t his note is different from the original. Images from the original note were not included. DISCHARGE PLANNING NOTE Discussed patient today during rounds. Plan- [facility] accepting. Tasked [facility] to schedule w/c van for 3 pm. Floor nurse and PA aware. Spoke with patient, and dtr and they are in agreement with d/c today to [place]. Awaiting CRF. Services Requested: Services Requested Discharge Disposition: [facility] SNF Name: [facility] SNF Does the patient need discharge transportation arranged?: Yes Transportation Arranged: Ambulance Visiting Physician/Provider: Jennifer Kc MD Initial DC Assessment Completed: Yes Patient Goals: Patient/Caregiver Goals Patient/Caregiver Goals: Shelter Care Skilled Nuring Care: Skilled Care (Short Term) Goals: Goals SNF (pt-stated) Evaluation of progress towards goal: Patient and family agree to SNF for short term rehab at discharge. - REBECCA PATEL 12/20/23 11:04 AM Tasked [facility] to send [facility]. - REBECCA PATEL 12/20/23 3:39 PM [facility] 12-20-2023 Progress note Formatting of t his note is different from the original. Physical Therapy Treatment Discharge Recommendations PT Recommendations: Shelter Facility 6 Clicks: Basic Mobility Turning from your back to your side while in a flat bed without using bed rails?: A little Moving from lying on your back to sitting on side of flat bed without using bed rails?: A lot Moving to and from bed to a chair (including w/c)?: A little Standing up from a chair using your arms (e.g. w/c or bedside chair)?: A little To walk in hospital room?: A little Climbing 3-5 steps with a railing?: Total Scoring 6 Clicks: Basic Mobility Raw Score: 15 CMS G Code Modifier: CK PT Treatment/Interventions: Functional transfer training, Patient/family training, Equipment eval/education, Balance, LE strengthening/ROM, Bed mobility, Gait training PT Frequency: 4-5days/week PT Duration: 01/10/24 Patient Response to Treatment: Progressing toward goals Assessment Patient Assessment Therapy Problem List: Decreased balance, Decreased cognition, Decreased endurance, Decreased mobility, Decreased safe judgement during ADL, Decreased LE strength Patient Response to Treatment: Progressing toward goals Mood/Affect: Appropriate for circumstances Rehab Prognosis: Good, With continued PT status post acute discharge Visit RN Communication: Yes Medical Record Reviewed: Yes PT Type of Visit: Treatment Precautions Activity: early mobility pass, okay for therapy per RN Equipment: gait belt, RW, chair alarm Telemetry/Employee Health Nurse: Yes Oxygen Used: room air Other: fall risk, decreased cognition, slow reaction time, lethargic, bed/chair alarm Pain Assessment Pain Assessment: No/denies pain Hearing / Speech / Vision Hearing: Hard of hearing/hearing concerns, Bilateral hearing aid Speech: Delayed responses Cognition Arousal/Alertness: Delayed responses to stimuli Attention Span: Attends with cues to redirect Orientation Level: Oriented X4 Following Commands: Follows one step commands with increased time, Follows one step commands with repetition Safety Judgment: Decreased awareness of need for safety Awareness of Errors: Decreased awareness of errors Insight of Deficits: Decreased awareness of deficits Problem Solving: Reduced Other: increased time and effort for completion of all tasks. pt lethargic this morning. Bed Mobility Supine to Sit: Min assist, Verbal cues Other: pt completed supine to sit with HOB elevated and use of bed rails. min assist to sit upright at EOB and to scoot hips forward. increased time and effort. pt up in chair at end of session eating breakfast. call light in reach and chair alarm on. RN aware Transfers Sit to Stand: Min assist, Verbal cues Stand to Sit: Min assist, Verbal cues Toilet Transfers: Min assist, Verbal cues Other: pt completed functional transfers with min assist. verbal cues for safe hand placement and technique. increased time and effort. no c/o dizziness. Gait Base of Support: Within Functional Limits Pattern: Decreased josselin, R Decreased foot clearance, L Decreased foot clearance Gait Assistance: Min assist Assistive Device: Rolling walker Gait Distance: 15 ft x2 Limiting Factors to Gait: Fatigue, Weakness, Decreased safety Other: pt completed functional mobility in hospital room with min assist. verbal cues for sequencing and safe use of RW. increased time and effort. no major LOB noted. pt fatigues quickly. Balance Sitting Balance: Static: Fair Sitting Balance: Dynamic: Fair Standing Balance: Static: Fair Standing Balance: Dynamic: Fair (-) Other: pt sat at EOB 15 mins in prep for transfer, demo'd posterior and R lean, verbal cues to maintain sitting balance. pt stood at toilet and sink 8 mins for adl's, cga for safety. no LOB noted. Activity Tolerance Endurance: Tolerates 30 minutes activity with rest breaks Other: activity limited by fatigue, weakness and decreased activity tolerance. increased time and effort for completion of all tasks d/t lethargic. 12/20/23 0730 LE Seated LE seated exercises performed? No (educated family at bedside - HEP given) UE ROM UE ROM exercises performed? No (educated family at bedside - HEP given) Plan Physical Therapy Care Plan Physical Therapy Care Plan (Active) Template: PT - Physical Therapy Problem: Activity Tolerance Dates: Start: 12/16/23 Disciplines: PT Goal: Tolerate > 30 minutes of activity WITH rest breaks Dates: Start: 12/16/23 Expected End: 01/10/24 Description: Goal Description: For seated and standing activities for improved mobility Disciplines: PT Outcomes Date/Time User Outcome 12/20/23 08Shahnaz Andrews, LOCOMOTIVE PIPE FITTER Progressing Problem: Bed Mobility Dates: Start: 12/16/23 Disciplines: PT Goal: Patient will perform bed mobility with Supervision Dates: Start: 12/16/23 Expected End: 01/10/24 Description: Goal Description: Disciplines: PT Outcomes Date/Time User Outcome 12/20/23 08Shahnaz Andrews, LOCOMOTIVE PIPE FITTER Progressing Problem: Gait Dates: Start: 12/16/23 Disciplines: PT Goal: Patient will perform gait with Stand By Assist Dates: Start: 12/16/23 Expected End: 01/10/24 Description: 150 feet with RW support for safe mobility in home Goal Description: Disciplines: PT Outcomes Date/Time User Outcome 12/20/23 08Shahnaz Andrews, LOCOMOTIVE PIPE FITTER Progressing Problem: Standing Balance Dates: Start: 12/16/23 Disciplines: PT Goal: Improve balance to good Dates: Start: 12/16/23 Expected End: 01/10/24 Description: Static Dynamic with UE support as needed for safe mobility, decreased fall risk Disciplines: PT Outcomes Date/Time User Outcome 12/20/23 0821 Dory Andrews, LOCOMOTIVE PIPE FITTER Progressing Problem: Transfers Dates: Start: 12/16/23 Disciplines: PT Goal: Patient will perform transfers with Supervision Dates: Start: 12/16/23 Expected End: 01/10/24 Description: Goal Description: with RW support Disciplines: PT Outcomes Date/Time User Outcome 12/20/23 0821 Dory Andrews, LOCOMOTIVE PIPE FITTER Progressing Physical Therapy Care Plan (Resolved) There are no resolved problems. Principal Problem: ICH (intracerebral hemorrhage) ([facility]) Associated attestation - Zeeshan Hein PT - 12/20/2023 2:59 PM EDT I have reviewed and agree with this note and education documentation for this visit. [facility] 12-20-2023 Plan of care note Problem: Pain Goal: Patient goal is pain score less than 4, able to rest, and participant in treatment plan as appropriate Description: INTERVENTIONS: 1. Encourage patient or legal termite control service representative to report early pain and ask for pain medicine when needed 2. Assess pain using appropriate pain scale and include the scale used when documenting 3. Administer analgesics based on type and severity of pain and evaluate response within appropriate time frame 4. Implement non-pharmacological measures as appropriate and evaluate response 5. Consider cultural and social influences on pain and pain management 6. Notify LIP if interventions ineffective or patient reports new pain 7. Monitor vital signs including pulse ox, end-tidal CO2 based on pain intervention 8. Reassess pain per policy 9. Teach patient or legal termite control service representative interventions for comforting Outcome: Progressing Note: Evaluation of progress towards goal: pain controlled with prn meds [facility] 12-19-2023 Plan of care note Problem: Pain Goal: Patient goal is pain score less than 4, able to rest, and participant in treatment plan as appropriate Description: INTERVENTIONS: 1. Encourage patient or legal termite control service representative to report early pain and ask for pain medicine when needed 2. Assess pain using appropriate pain scale and include the scale used when documenting 3. Administer analgesics based on type and severity of pain and evaluate response within appropriate time frame 4. Implement non-pharmacological measures as appropriate and evaluate response 5. Consider cultural and social influences on pain and pain management 6. Notify LIP if interventions ineffective or patient reports new pain 7. Monitor vital signs including pulse ox, end-tidal CO2 based on pain intervention 8. Reassess pain per policy 9. Teach patient or legal termite control service representative interventions for comforting Outcome: Progressing Note: Evaluation of progress towards goal: Patient can verbalize comfort level throughout shift, plan of care still ongoing and manage with pain meds or any other pain management. Problem: Safety Goal: Patient will be injury free during hospitalization Description: INTERVENTIONS: 1. Assess patient's risk for falls and implement fall prevention plan of care per policy 2. Provide and maintain a safe environment 3. Proper use of double Identifiers 4. Medication administration using the 5 rights 5. Hand hygiene 6. Specimens are labeled at the bedside 7. Instruct patient/ patient termite control service representative about use of safety devices 8. Include patient/ patient termite control service representative in decisions related to safety Outcome: Progressing Note: Evaluation of progress towards goal: Patient remains free injury at current shift, plan of care still ongoing. Problem: Infection Goal: Absence of infection during hospitalization Description: Interventions: 1. Assess and monitor for signs and symptoms of infection 2. Monitor lab/diagnostic results 3. Monitor all insertion sites i.e., indwelling lines, tubes and drains 4. Monitor endotracheal (as able) and nasal secretions for changes in amount and color 5. Administer medications as ordered 6. Instruct and encourage patient and family to use good hand hygiene technique 7. Identify and instruct patient/patient termite control service representative in use of appropriate isolation precautions for identified infection/symptoms 8. Provide and discuss with patient/patient termite control service representative on educational MDRO sheet 9. Encourage and monitor nutritional status daily and consult wholesale loan processor if indicated 10. Implement neutropenic guidelines as needed 11. Review exposure to history of communicable disease and recent travel history on admission 12. Encourage annual influenza vaccine 13. Encourage pneumonia vaccine Outcome: Progressing Note: Evaluation of progress towards goal: Patient remains free from signs and symptoms of infections at current time, plan of care still ongoing. Problem: Knowledge Deficit Goal: Patient/patient termite control service representative demonstrates understanding of disease process, treatment plan, medications, and discharge instructions Description: INTERVENTIONS 1. Complete learning assessment and assess knowledge base 2. Provide teaching at level of understanding 3. Provide teaching via preferred learning method(s) Outcome: Progressing Note: Evaluation of progress towards goal: Patient has been able to demonstrate understanding of disease process, treatment plan, medications and discharge instructions. Problem: Discharge Planning Goal: Discharge to post-acute care, other facility, or home with appropriate resources Description: Patient's goal is: INTERVENTIONS 1. Conduct assessment to determine patient/family and health care team treatment goals, and need for post-acute services based on payer coverage, community resources, and patient preferences, and barriers to discharge 2. Coordinate with Social work, Care Navigation, and Utilization Review to arrange appropriate level of services according to patient's needs based on patient preference and payer coverage in collaboration with the physician and health care team 3. Address psychosocial, clinical, and financial barriers to discharge as identified in assessment in conjunction with the patient/family and health care team 4. Consult appropriate ancillary services (i.e.. PT/OT/ST, etc) as needed 5. Communicate with and update the patient/family, physician, and health care team regarding progress on the discharge plan 6. Identify discharge learning needs (meds, wound care, etc). 7. Arrange for needed discharge transportation as appropriate Outcome: Progressing Note: Evaluation of progress towards goal: Patient is planned to be discharged to a prison facility with appropriate resources. Problem: Moderate - High Risk Fall Score Description: Coleman Fall Score of =/> 25 or indicated by [facility] Rehab Assessment Goal: Patient should be free from fall Description: Interventions: 1. [place] to environment 2. Hourly rounds addressing the 4 P's (Pain, Positioning, Possessions, Potty) 3. Clear area of hazards (spills, clutter, electrical cords, unnecessary equipment) 4. Place equipment (bed & TV controls, call light, phone, urinal) within reach 5. Encourage patient to wear glasses and hearing aides as appropriate 6. Maintain bed in lowest position 7. Lock wheels on bed/wheelchair 8. Provide adequate lighting, including night light 9. Assess need for additional bedding, food/fluids, pain med's prior to sleep/routinely 10. Provide gripper slippers or personal non-skid footwear 11. Teach patient and patient termite control service representative to maintain environment for safety and engage in all aspects of fall prevention program 12. Remind patient to call for help before getting out of bed 13. Initiate bed/chair/exit alarms supportive devices as appropriate, (chair wedge, no-skid floor mat, raised edge mattress, hip protectors) 14. Locate patient bed assignment for optimal visualization 15. Evaluate and identify Safe Patient Handling Equipment needs 16. Provide supervision when out of bed or chair 17. Utilize gait belt as needed to assist with ambulation 18. Place adaptive equipment (cane, walker) within reach 19. Request patient termite control service representative bring adaptive equipment/mobility aids from home or obtain and provide as needed 20. Consult pharmacy regarding effects of med's affecting mobility, cognition, and alternatives 21. Obtain physician order for PT if risk factors associated with mobility are present 22. Obtain physician order for OT as appropriate 23. Utilize diversional activities 24. Educate patient and patient termite control service representative how to maintain a safe environment during visitation times (notify nurse prior to leaving bedside) 25. Consider appropriateness of medical or non-neuropsychology medical consultant 26. Set up voiding schedule as appropriate (every 2 hours) Outcome: Progressing Note: Evaluation of progress towards goal: Patient remains free from falls at current time, plan of care still ongoing. Problem: Potential for Compromised Skin Integrity Goal: Skin integrity is maintained or improved Description: Patient's goal is: INTERVENTIONS 1. Perform initial skin assessment on admission and as needed 2. Turn patient every 2 hours and PRN 3. Relieve pressure to bony prominences 4. Avoid shearing 5. Keep skin clean and dry 6. Alternate a full bath with partial baths for elderly 7. Apply lotion/moisturizer on skin 8. Monitor patient's hygiene practices 9. Float heels 10. Collaborate with interdisciplinary team and initiate plans and interventions as needed Outcome: Progressing Note: Evaluation of progress towards goal: Patient's skin integrity has been maintained, plan of care still ongoing with [employer] skin assessments. Problem: Urinary Incontinence Goal: Perineal skin integrity is maintained or improved Description: INTERVENTIONS 1. Assess genitourinary system, perineal skin, labs (urinalysis), and history of incontinence to include past management, aggravating, and alleviating factors 2. Keep skin clean and dry 3. Apply skin protectant 4. Develop skin care regimen 5. Provide privacy when changing patients incontinence device to maintain their dignity 6. Consider placing an indwelling catheter 7. Collaborate with interdisciplinary team and initiate plans and interventions as needed Outcome: Progressing Note: Evaluation of progress towards goal: Patient's perineal skin integrity has been maintained, plan of care still ongoing with [employer] skin assessments and proper hygiene care. [facility] 12-19-2023 Consult note Associated Order (s): IP CONSULT TO NUTRITION SERVICES NUTRITION ADULT INITIAL EVALUATION NUTRITION ASSESSMENT: Reason to be seen: TF management consult per Trauma Surgery. Patient History: Admit Diagnosis: Patient Active Problem List Diagnosis ICH (intracerebral hemorrhage) (CMS-HCC) Past Medical History:No past medical history on file. Past Surgical History:No past surgical history on file. Social/ Cognitive/ Economic: -- Brief Clinical Summary: Patient recently fell and went to [facility] where she was admitted and discharged. She returned due to slurred speech and found subarachnoid on original imaging; transferred to [facility]. Biochemical Data, Medical Tests, and Procedures: Reviewed. Labs: Results from last 3 days Lab Units 12/19/23 0612/18/23 0521 12/17/23 0531 SODIUM mmol/L 139 141 142 POTASSIUM mmol/L 4.0 3.9 3.6 CHLORIDE mmol/L 104 104 106 CO2 mmol/L 25 27 26 BUN mg/dL 17 17 13 CREATININE mg/dL 0.58 0.66 0.61 CALCIUM mg/dL 9.3 9.5 9.0 Results from last 7 days Lab Units 12/19/23 0827 12/19/23 0621 12/18/23 2104 12/18/23 1527 12/18/23 1136 12/18/23 0749 12/18/23 0521 BEDSIDE GLUCOSE mg/dL 122* -- 159* 93 113* 101* -- GLUCOSE mg/dL -- 105* -- -- -- -- 94 Results from last 3 days Lab Units 12/19/23 0612/18/23 0521 12/17/23 0531 WBC X10E9/L 6.1 7.1 6.6 HEMOGLOBIN g/dL 12.1 12.7 11.6* HEMATOCRIT % 35.6 36.7 34.3* PLATELETS X10E9/L 264 255 252 MCV fL 89 90 90 No data from last 3 days. No data from last 3 days. No data from last 3 days. No results found for: HGBA1C No results found for: IRON , TIBC , FERRITIN No results found for: IRONSAT No results found for: CHOL No results found for: CHDL No results found for: HDL No results found for: LDLCALC No results found for: TRIG No results found for: VERYLOWLIP No results found for: [id number] No results found for: FOLATE No results found for: VITD25 Comments (labs): Reviewed. Medications/ Parenteral: Ca carbonate, vitamin D3, colace, insulin, metformin, senokot Medications Prior to Admission Medication Sig Dispense Refill Last Dose cholecalciferol, vitamin D3, (VITAMIN D3) 5,000 units capsule Take 1 capsule (5,000 Units total) by mouth in the morning. gabapentin (NEURONTIN) 300 mg capsule Take 1 capsule (300 mg total) by mouth in the morning. metoprolol succinate XL (TOPROL XL) 50 mg 24 hr tablet Take 1 tablet (50 mg total) by mouth nightly. aspirin 81 mg Take 2 tablets (162 mg total) by mouth in the morning. calcium carbonate (OS-GEOVANNA) 600 mg elemental (1,500 mg) tablet Take 1 tablet (600 mg total) by mouth in the morning and 1 tablet (600 mg total) in the evening. Take with meals. docusate sodium (COLACE) 100 mg capsule Take 1 capsule (100 mg total) by mouth in the morning and 1 capsule (100 mg total) before bedtime. metFORMIN (GLUCOPHAGE) 500 mg tablet Take 2 tablets (1,000 mg total) by mouth daily with breakfast. metFORMIN (GLUCOPHAGE) 500 mg tablet Take 1 tablet (500 mg total) by mouth nightly. With evening meal take 1 tablet. potassium bicarbonate (EFFER-K) 25 MEQ disintegrating tablet Take 1 tablet (25 mEq total) by mouth in the morning and 1 tablet (25 mEq total) before bedtime. ramipriL (ALTACE) 2.5 mg capsule Take 1 tablet by mouth in the morning. simvastatin (ZOCOR) 20 mg tablet Take 1 tablet (20 mg total) by mouth nightly. Current Facility-Administered Medications Medication Dose Route Frequency Provider Last Rate Last Admin atorvastatin (LIPITOR) tablet 10 mg 10 mg oral Nightly VIKI Manuel 10 mg at 12/18/23 2156 trpxyuamwd-ypowfxjubaxyy-fboz (FIORICET, ESGIC) 50-325-40 mg per tablet 2 tablet 2 tablet oral Q6H PRN Bob Levin APRN-RETAIL DIRECTOR 2 tablet at 12/19/23 0325 calcium carbonate (OS-GEOVANNA) 500 mg elemental (1,250 mg) tablet 500 mg 500 mg oral BID with meals VIKI Manuel 500 mg at 12/19/23 0756 cholecalciferol (vitamin D3) (VITAMIN D3) capsule 5,000 Units 5,000 Units oral Daily VIKI Manuel 5,000 Units at 12/19/23 0756 dextrose (GLUTOSE) 40 % gel 15 g 15 g oral PRN VIKI Manuel dextrose 5 % (D5W) infusion 100 mL/hr intravenous Continuous PRN IVKI Manuel dextrose 50 % in water (D50W) 50% solution 25 mL 25 mL intravenous PRN VIKI Manuel docusate sodium (COLACE) capsule 100 mg 100 mg oral BID VIKI Manuel 100 mg at 12/19/23 0756 enoxaparin (LOVENOX) syringe 30 mg 30 mg subcutaneous Q12H SWAPNIL Levy 30 mg at 12/19/23 0621 glucagon HCL injection 1 mg 1 mg intramuscular PRN VIKI Manuel hydrALAZINE (APRESOLINE) injection 10 mg 10 mg intravenous Q6H PRN SWAPNIL Norris 10 mg at 12/16/23 1600 insulin lispro (HumaLOG) injection 2-10 Units 2-10 Units subcutaneous TID with meals VIKI Manuel 2 Units at 12/16/23 1200 insulin lispro (HumaLOG) injection 2-8 Units 2-8 Units subcutaneous Nightly VIKI Manuel labetaloL (NORMODYNE,TRANDATE) injection 10 mg 10 mg intravenous Q4H PRN SWAPNIL Norris 10 mg at 12/16/23 0439 levETIRAcetam (KEPPRA) IVPB 500 mg/100 mL in iso-osmotic sodium chloride (5 mg/mL premix) 500 mg intravenous Q12H SWAPNIL Robledo Stopped at 12/14/23 2223 Or levETIRAcetam (KEPPRA) tablet 500 mg 500 mg oral Q12H NAZ SWAPNIL Norris 500 mg at 12/19/23 0756 metFORMIN (GLUCOPHAGE) tablet 1,000 mg 1,000 mg oral Daily with breakfast VIKI Ramos 1,000 mg at 12/19/23 0756 metFORMIN (GLUCOPHAGE) tablet 500 mg 500 mg oral Nightly VIKI Ramos 500 mg at 12/18/23 2156 metoprolol succinate XL (TOPROL XL) 24 hr tablet 50 mg 50 mg oral Nightly VIKI Manuel 50 mg at 12/18/23 2159 ondansetron (PF) (ZOFRAN) injection 4 mg 4 mg intravenous Q6H PRN KIRBY NorrisRETAIL DIRECTOR 4 mg at 12/16/23 1203 oxyCODONE (ROXICODONE) immediate release tablet 5 mg 5 mg oral Q4H PRN VIKI Ramos 5 mg at 12/18/23 1600 Or oxyCODONE (ROXICODONE) immediate release tablet 10 mg 10 mg oral Q4H PRN VIKI Ramos 10 mg at 12/16/23 1604 sennosides-docusate sodium (SENOKOT-S) 8.6-50 mg 2 tablet 2 tablet oral Nightly Chio Ayoub APRN-RETAIL DIRECTOR 2 tablet at 12/18/23 2156 sodium chloride 0.9 % flush 3 mL 3 mL intravenous PRN Chio N Mega, AGRIBUSINESS PROFESSOR-RETAIL DIRECTOR sodium chloride 0.9 % flush 3 mL 3 mL intravenous Q12H NAZ Chio Nii Ayoub, AGRIBUSINESS PROFESSOR-RETAIL DIRECTOR 3 mL at 12/19/23 0756 sodium chloride 0.9 % infusion 10 mL/hr intravenous Continuous PRN VIKI Manuel Stopped at 12/14/23 1111 Nutrition Focused Physical Findings last BM 12/14. No TF access. Extremities, Muscles, and Bones Appears WNL Skin (per nursing flow sheets): Skin Color: Pale (12/18/23 07) Skin Temp: Warm; Dry (12/18/23 07) Skin Integrity: Intact (12/14/23 0430) Wound (per nursing flow sheets): Gastrointestinal (per nursing flow sheets): Abdomen Assessment: Soft (12/19/23701) Last BM Date: 12/15/23 (12/19/23701) Passing Flatus: Yes (12/19/23701) RUQ Bowel Sounds: Active (12/19/23701) LUQ Bowel Sounds: Active (12/19/23701) RLQ Bowel Sounds: Active (12/19/23701) LLQ Bowel Sounds: Active (12/19/23701) GI Symptoms: None (12/19/23701) Nausea Precipitating Factors: Other (Comment) (pain and not eating) (12/14/23 2300) Relieved by: Antiemetic (12/14/23 2315) Edema (per nursing flow sheets): Intake/ Output Last 24 hrs: Intake/Output Summary (Last 24 hours) at 12/19/2023 1029 Last data filed at 12/19/2023 0353 Gross per 24 hour Intake 3 ml Output 700 ml Net -697 ml Food/Nutrition Related History: Diet History: deferred at this time; spoke with RN. Allergies: Allergies Allergen Reactions Penicillins Rash Diet/ Nutrition Order Review: Dietary Orders (From admission, onward) Start Ordered 12/18/23 1146 Adult nutrition supplements Continuous Comments: Vanilla ensure Question Answer Comment Diet Type or Consistency: Regular Texture Select Supplement: Standard House Supplement 8 oz Supplement Frequency: TID 12/18/23 1145 12/14/23 1010 Adult diet Regular Texture; Consistent Carb 255 grams (2000 kcal) Diet effective now Question Answer Comment Diet Type: Regular Texture Carbohydrate Modifiers: Consistent Carb 255 grams (2000 kcal) 12/14/23 1010 Diet Intakes: 25-50% of meals, poor appetite documented; RN reports today is a very different day, she is eating fairly well and drinking Ensure. Patient does not wish to have PEG as previously mentioned if PO intakes were poor. Oral Supplemental Intake/ Acceptance: Ensure plus TID ordered Anthropometrics: Ht Readings from Last 1 Encounters: 12/14/23 160 cm (5' 3 ) Wt Readings from Last 20 Encounters: 12/15/23 65.4 kg (144 lb 2.9 oz) Weight 68 kg (150 lb) 05/09/2023 Last 3 Weight Readings 12/14/23 0615 12/15/23 0136 Weight: 65.9 kg (145 lb 4.5 oz) 65.4 kg (144 lb 2.9 oz) Admit Weight: 65.9 kg (Bed Scale, 12/13) [place] Body Weight: 52.3 kg Percent [place] Body Weight: >100% Weight Changes: insignificant changes per EMR Body Mass Index: Body mass index is 25.54 kg/m . BMI Category: Overweight (> or = 25.00) Comparative Standards: Estimated Energy Needs: 8418-7827 kcals daily. Method and weight used: 25-30 kcal/kg IBW 52.3 kg Estimated Protein Needs: 63-105 grams daily. Method and weight used: 1.2-2g protein/kg IBW Estimated Fluid Needs: 9465-9869 ml daily. Method weight used: 1 ml/kcal/day Comments: floor needs Malnutrition Status: Malnutrition Present: No NUTRITION DIAGNOSIS: Intake Diagnosis: Predicted suboptimal energy intake (NI 1.4) related to suspected suboptimal appetite as evidenced by fair intakes and appetite. NUTRITION INTERVENTIONS: Meals & snacks: Encourage PO intakes. Supplements (medical food, vitamin or mineral): Continue ensure plus high protein TID to provide 350 kcal and 20 grams of protein per serving. Coordination of nutrition care: Spoke with RN. RECOMMENDATIONS: Appetite stimulant if medically appropriate. If intakes <50% for extended period of time, consider supplemental enteral nutrition however not appropriate at this time. GOAL(S): Patient to meet calorie and protein needs. NUTRITION MONITORING AND EVALUATION: Weight, labs, PO intake, GI function, I/Os, POC. JULIANNE Quinn, RD, LD Clinical Dietitian Direct Line: [facility] 12-19-2023 Consult note Associated Order (s): IP CONSULT TO NUTRITION SERVICES NUTRITION ADULT INITIAL EVALUATION NUTRITION ASSESSMENT: Reason to be seen: TF management consult per Trauma Surgery. Patient History: Admit Diagnosis: Patient Active Problem List Diagnosis ICH (intracerebral hemorrhage) (CMS-HCC) Past Medical History:No past medical history on file. Past Surgical History:No past surgical history on file. Social/ Cognitive/ Economic: -- Brief Clinical Summary: Patient recently fell and went to OSH where she was admitted and discharged. She returned due to slurred speech and found subarachnoid on original imaging; transferred to [facility]. Biochemical Data, Medical Tests, and Procedures: Reviewed. Labs: Results from last 3 days Lab Units 12/19/23 0621 12/18/23 0521 12/17/23 0531 SODIUM mmol/L 139 141 142 POTASSIUM mmol/L 4.0 3.9 3.6 CHLORIDE mmol/L 104 104 106 CO2 mmol/L 25 27 26 BUN mg/dL 17 17 13 CREATININE mg/dL 0.58 0.66 0.61 CALCIUM mg/dL 9.3 9.5 9.0 Results from last 7 days Lab Units 12/19/23 0827 12/19/23 0621 12/18/23 2104 12/18/23 1527 12/18/23 1136 12/18/23 0749 12/18/23 0521 BEDSIDE GLUCOSE mg/dL 122* -- 159* 93 113* 101* -- GLUCOSE mg/dL -- 105* -- -- -- -- 94 Results from last 3 days Lab Units 12/19/23 0621 12/18/23 0521 12/17/23 0531 WBC X10E9/L 6.1 7.1 6.6 HEMOGLOBIN g/dL 12.1 12.7 11.6* HEMATOCRIT % 35.6 36.7 34.3* PLATELETS X10E9/L 264 255 252 MCV fL 89 90 90 No data from last 3 days. No data from last 3 days. No data from last 3 days. No results found for: HGBA1C No results found for: IRON , TIBC , FERRITIN No results found for: IRONSAT No results found for: CHOL No results found for: CHDL No results found for: HDL No results found for: LDLCALC No results found for: TRIG No results found for: VERYLOWLIP No results found for: [id number] No results found for: FOLATE No results found for: VITD25 Comments (labs): Reviewed. Medications/ Parenteral: Ca carbonate, vitamin D3, colace, insulin, metformin, senokot Medications Prior to Admission Medication Sig Dispense Refill Last Dose cholecalciferol, vitamin D3, (VITAMIN D3) 5,000 units capsule Take 1 capsule (5,000 Units total) by mouth in the morning. gabapentin (NEURONTIN) 300 mg capsule Take 1 capsule (300 mg total) by mouth in the morning. metoprolol succinate XL (TOPROL XL) 50 mg 24 hr tablet Take 1 tablet (50 mg total) by mouth nightly. aspirin 81 mg Take 2 tablets (162 mg total) by mouth in the morning. calcium carbonate (OS-GEOVANNA) 600 mg elemental (1,500 mg) tablet Take 1 tablet (600 mg total) by mouth in the morning and 1 tablet (600 mg total) in the evening. Take with meals. docusate sodium (COLACE) 100 mg capsule Take 1 capsule (100 mg total) by mouth in the morning and 1 capsule (100 mg total) before bedtime. metFORMIN (GLUCOPHAGE) 500 mg tablet Take 2 tablets (1,000 mg total) by mouth daily with breakfast. metFORMIN (GLUCOPHAGE) 500 mg tablet Take 1 tablet (500 mg total) by mouth nightly. With evening meal take 1 tablet. potassium bicarbonate (EFFER-K) 25 MEQ disintegrating tablet Take 1 tablet (25 mEq total) by mouth in the morning and 1 tablet (25 mEq total) before bedtime. ramipriL (ALTACE) 2.5 mg capsule Take 1 tablet by mouth in the morning. simvastatin (ZOCOR) 20 mg tablet Take 1 tablet (20 mg total) by mouth nightly. Current Facility-Administered Medications Medication Dose Route Frequency Provider Last Rate Last Admin atorvastatin (LIPITOR) tablet 10 mg 10 mg oral Nightly VIKI Manuel 10 mg at 12/18/23 2156 kibrkhuprg-pdafxilrnimcb-ukwp (FIORICET, ESGIC) 50-325-40 mg per tablet 2 tablet 2 tablet oral Q6H PRN SWAPNIL Levy 2 tablet at 12/19/23 0325 calcium carbonate (OS-GEOVANNA) 500 mg elemental (1,250 mg) tablet 500 mg 500 mg oral BID with meals VIKI Manuel 500 mg at 12/19/23 0756 cholecalciferol (vitamin D3) (VITAMIN D3) capsule 5,000 Units 5,000 Units oral Daily VIKI Manuel 5,000 Units at 12/19/23 0756 dextrose (GLUTOSE) 40 % gel 15 g 15 g oral PRN VIKI Manuel dextrose 5 % (D5W) infusion 100 mL/hr intravenous Continuous PRN VIKI Manuel dextrose 50 % in water (D50W) 50% solution 25 mL 25 mL intravenous PRN VIKI Manuel docusate sodium (COLACE) capsule 100 mg 100 mg oral BID VIKI Manuel 100 mg at 12/19/23 0756 enoxaparin (LOVENOX) syringe 30 mg 30 mg subcutaneous Q12H SWAPNIL Levy 30 mg at 12/19/23 0621 glucagon HCL injection 1 mg 1 mg intramuscular PRN VIKI Manuel hydrALAZINE (APRESOLINE) injection 10 mg 10 mg intravenous Q6H PRN SWAPNIL Norris 10 mg at 12/16/23 1600 insulin lispro (HumaLOG) injection 2-10 Units 2-10 Units subcutaneous TID with meals VIKI Manuel 2 Units at 12/16/23 1200 insulin lispro (HumaLOG) injection 2-8 Units 2-8 Units subcutaneous Nightly VIKI Manuel labetaloL (NORMODYNE,TRANDATE) injection 10 mg 10 mg intravenous Q4H PRN SWAPNIL Norris 10 mg at 12/16/23 0439 levETIRAcetam (KEPPRA) IVPB 500 mg/100 mL in iso-osmotic sodium chloride (5 mg/mL premix) 500 mg intravenous Q12H NAZ Ayoub APRN-JAMESON Stopped at 12/14/23 2223 Or levETIRAcetam (KEPPRA) tablet 500 mg 500 mg oral Q12H NAZ Ayoub APRN-JAMESON 500 mg at 12/19/23 0756 metFORMIN (GLUCOPHAGE) tablet 1,000 mg 1,000 mg oral Daily with breakfast VIKI Ramos 1,000 mg at 12/19/23 0756 metFORMIN (GLUCOPHAGE) tablet 500 mg 500 mg oral Nightly VIKI Ramos 500 mg at 12/18/23 2156 metoprolol succinate XL (TOPROL XL) 24 hr tablet 50 mg 50 mg oral Nightly VIKI Manuel 50 mg at 12/18/23 2159 ondansetron (PF) (ZOFRAN) injection 4 mg 4 mg intravenous Q6H PRN SWAPNIL Norris 4 mg at 12/16/23 1203 oxyCODONE (ROXICODONE) immediate release tablet 5 mg 5 mg oral Q4H PRN VIKI Ramos 5 mg at 12/18/23 1600 Or oxyCODONE (ROXICODONE) immediate release tablet 10 mg 10 mg oral Q4H PRN VIKI Ramos 10 mg at 12/16/23 1604 sennosides-docusate sodium (SENOKOT-S) 8.6-50 mg 2 tablet 2 tablet oral Nightly SWAPNIL Norris 2 tablet at 12/18/23 2156 sodium chloride 0.9 % flush 3 mL 3 mL intravenous PRN Chio Ayoub APRN-JAMESON sodium chloride 0.9 % flush 3 mL 3 mL intravenous Q12H SWAPNIL Robledo 3 mL at 12/19/23 0756 sodium chloride 0.9 % infusion 10 mL/hr intravenous Continuous PRN VIKI Manuel Stopped at 12/14/23 1111 Nutrition Focused Physical Findings last BM 12/14. No TF access. Extremities, Muscles, and Bones Appears WNL Skin (per nursing flow sheets): Skin Color: Pale (12/18/23 07) Skin Temp: Warm; Dry (12/18/23704) Skin Integrity: Intact (12/14/23 0430) Wound (per nursing flow sheets): Gastrointestinal (per nursing flow sheets): Abdomen Assessment: Soft (12/19/23701) Last BM Date: 12/15/23 (12/19/23701) Passing Flatus: Yes (12/19/23701) RUQ Bowel Sounds: Active (12/19/23701) LUQ Bowel Sounds: Active (12/19/23701) RLQ Bowel Sounds: Active (12/19/23701) LLQ Bowel Sounds: Active (12/19/23701) GI Symptoms: None (12/19/23701) Nausea Precipitating Factors: Other (Comment) (pain and not eating) (12/14/23 2300) Relieved by: Antiemetic (12/14/23 2315) Edema (per nursing flow sheets): Intake/ Output Last 24 hrs: Intake/Output Summary (Last 24 hours) at 12/19/2023 1029 Last data filed at 12/19/2023 0353 Gross per 24 hour Intake 3 ml Output 700 ml Net -697 ml Food/Nutrition Related History: Diet History: deferred at this time; spoke with RN. Allergies: Allergies Allergen Reactions Penicillins Rash Diet/ Nutrition Order Review: Dietary Orders (From admission, onward) Start Ordered 12/18/23 1146 Adult nutrition supplements Continuous Comments: Vanilla ensure Question Answer Comment Diet Type or Consistency: Regular Texture Select Supplement: Standard House Supplement 8 oz Supplement Frequency: TID 12/18/23 1145 12/14/23 1010 Adult diet Regular Texture; Consistent Carb 255 grams (2000 kcal) Diet effective now Question Answer Comment Diet Type: Regular Texture Carbohydrate Modifiers: Consistent Carb 255 grams (2000 kcal) 12/14/23 1010 Diet Intakes: 25-50% of meals, poor appetite documented; RN reports today is a very different day, she is eating fairly well and drinking Ensure. Patient does not wish to have PEG as previously mentioned if PO intakes were poor. Oral Supplemental Intake/ Acceptance: Ensure plus TID ordered Anthropometrics: Ht Readings from Last 1 Encounters: 12/14/23 160 cm (5' 3 ) Wt Readings from Last 20 Encounters: 12/15/23 65.4 kg (144 lb 2.9 oz) Weight 68 kg (150 lb) 05/09/2023 Last 3 Weight Readings 12/14/23 0615 12/15/23 0136 Weight: 65.9 kg (145 lb 4.5 oz) 65.4 kg (144 lb 2.9 oz) Admit Weight: 65.9 kg (Bed Scale, 12/13) [place] Body Weight: 52.3 kg Percent [place] Body Weight: >100% Weight Changes: insignificant changes per EMR Body Mass Index: Body mass index is 25.54 kg/m . BMI Category: Overweight (> or = 25.00) Comparative Standards: Estimated Energy Needs: 5123-1310 kcals daily. Method and weight used: 25-30 kcal/kg IBW 52.3 kg Estimated Protein Needs: 63-105 grams daily. Method and weight used: 1.2-2g protein/kg IBW Estimated Fluid Needs: 5472-0877 ml daily. Method weight used: 1 ml/kcal/day Comments: floor needs Malnutrition Status: Malnutrition Present: No NUTRITION DIAGNOSIS: Intake Diagnosis: Predicted suboptimal energy intake (NI 1.4) related to suspected suboptimal appetite as evidenced by fair intakes and appetite. NUTRITION INTERVENTIONS: Meals & snacks: Encourage PO intakes. Supplements (medical food, vitamin or mineral): Continue ensure plus high protein TID to provide 350 kcal and 20 grams of protein per serving. Coordination of nutrition care: Spoke with RN. RECOMMENDATIONS: Appetite stimulant if medically appropriate. If intakes <50% for extended period of time, consider supplemental enteral nutrition however not appropriate at this time. GOAL(S): Patient to meet calorie and protein needs. NUTRITION MONITORING AND EVALUATION: Weight, labs, PO intake, GI function, I/Os, POC. JULIANNE Quinn, RD, LD Clinical Dietitian Direct Line: Associated Order(s): IP CONSULT TO CARDIOLOGY Images from the original note were not included. [facility] [address] [place] [address] HISTORY & PHYSICAL / CONSULT NOTE Kelin Rosenberg PCP: NO PCP, NO PCP Date of Admission: 12/14/2023 Date of Consultation: 12/14/2023 2:17 PM Consult for syncope SUBJECTIVE History of Present Illness: Kelin Rosenberg is a 83 y.o. 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 Reportedly she was doing well however 3 days ago she had a fall, unwitnessed, her heard her fall and found her laying down alert, breathing but not able to talk and called EMS. She was admitted initially to [place], where imaging revealed subarachnoid hemorrhage, otherwise hemodynamically stable, sinus rhythm. She got a loop recorder implanted there and was transferred to [facility] neuro ICU. Cardiology was consulted for concern for syncope. Patient does not remember any of the events around the fall and does not know if she passed out or not. She denies any prior similar episode, pain, shortness of breath, palpitations, presyncope, lightheadedness. Per family she had been in her usual state of health except likely she has had more gait unsteadiness. No recent medication changes. No prior TTE on file. Previous Medical History: No past medical history on file. Previous Surgical History: No past surgical history on file. Allergies: Allergies Allergen Reactions Penicillins [facility] Meds: Current Facility-Administered Medications Medication Dose Route Frequency Provider Last Rate Last Admin acetaminophen (TYLENOL EXTRA STRENGTH) tablet 1,000 mg 1,000 mg oral Q6H PRN Chio Ayoub APRN-RETAIL DIRECTOR 1,000 mg at 12/14/23 1321 atorvastatin (LIPITOR) tablet 10 mg 10 mg oral Nightly VIKI Manuel calcium carbonate (OS-GEOVANNA) 500 mg elemental (1,250 mg) tablet 500 mg 500 mg oral BID with meals VIKI Manuel cholecalciferol (vitamin D3) (VITAMIN D3) capsule 5,000 Units 5,000 Units oral Daily VIKI Manuel dextrose (GLUTOSE) 40 % gel 15 g 15 g oral PRN VIKI Manuel dextrose 5 % (D5W) infusion 100 mL/hr intravenous Continuous PRN VIKI Manuel dextrose 50 % in water (D50W) 50% solution 25 mL 25 mL intravenous PRN VIKI Manuel docusate sodium (COLACE) capsule 100 mg 100 mg oral BID VIKI Manuel glucagon HCL injection 1 mg 1 mg intramuscular PRN VIKI Manuel hydrALAZINE (APRESOLINE) injection 10 mg 10 mg intravenous Q6H PRN SWAPNIL Norris 10 mg at 12/14/23 0631 insulin lispro (HumaLOG) injection 2-10 Units 2-10 Units subcutaneous TID with meals VIKI Manuel insulin lispro (HumaLOG) injection 2-8 Units 2-8 Units subcutaneous Nightly VIKI Manuel labetaloL (NORMODYNE,TRANDATE) injection 10 mg 10 mg intravenous Q4H PRN SWAPNIL Norris levETIRAcetam (KEPPRA) IVPB 500 mg/100 mL in iso-osmotic sodium chloride (5 mg/mL premix) 500 mg intravenous Q12H [facility] SWAPNIL Norris Or levETIRAcetam (KEPPRA) tablet 500 mg 500 mg oral Q12H [facility] SWAPNIL Norris metoprolol succinate XL (TOPROL XL) 24 hr tablet 50 mg 50 mg oral Nightly VIKI Manuel ondansetron (PF) (ZOFRAN) injection 4 mg 4 mg intravenous Q6H PRN SWAPNIL Norris 4 mg at 12/14/23 0832 potassium bicarbonate (K-LYTE) 25 MEQ disintegrating tablet 25 mEq 25 mEq oral BID VIKI Manuel sennosides-docusate sodium (SENOKOT-S) 8.6-50 mg 2 tablet 2 tablet oral Nightly SWAPNIL Norris sodium chloride 0.9 % flush 3 mL 3 mL intravenous PRN SWAPNIL Norris sodium chloride 0.9 % flush 3 mL 3 mL intravenous Q12H [facility] Chio Ayoub, AGRIBUSINESS PROFESSOR-RETAIL DIRECTOR 3 mL at 12/14/23 1119 sodium chloride 0.9 % infusion 10 mL/hr intravenous Continuous PRN VIKI Manuel 10 mL/hr at 12/14/23 0802 10 mL/hr at 12/14/23 0802 sodium chloride 0.9 % infusion 75 mL/hr intravenous Continuous VIKI Manuel 75 mL/hr at 12/14/23 1114 75 mL/hr at 12/14/23 1114 Home Meds: Prior to Admission medications Medication Sig Start Date End Date Taking? Authorizing Provider cholecalciferol, vitamin D3, (VITAMIN D3) 5,000 units capsule Take 1 capsule (5,000 Units total) by mouth in the morning. 01/13/23 Yes Not In System Ref Prov gabapentin (NEURONTIN) 300 mg capsule Take 1 capsule (300 mg total) by mouth in the morning. 08/10/23 Yes Not In System Ref Prov metoprolol succinate XL (TOPROL XL) 50 mg 24 hr tablet Take 1 tablet (50 mg total) by mouth nightly. 06/07/23 Yes Not In System Ref Prov aspirin 81 mg Take 2 tablets (162 mg total) by mouth in the morning. Not In System Ref Prov calcium carbonate (OS-GEOVANNA) 600 mg elemental (1,500 mg) tablet Take 1 tablet (600 mg total) by mouth in the morning and 1 tablet (600 mg total) in the evening. Take with meals. Not In System Ref Prov docusate sodium (COLACE) 100 mg capsule Take 1 capsule (100 mg total) by mouth in the morning and 1 capsule (100 mg total) before bedtime. Not In System Ref Prov metFORMIN (GLUCOPHAGE) 500 mg tablet Take 2 tablets (1,000 mg total) by mouth daily with breakfast. Not In System Ref Prov metFORMIN (GLUCOPHAGE) 500 mg tablet Take 1 tablet (500 mg total) by mouth nightly. With evening meal take 1 tablet. Not In System Ref Prov potassium bicarbonate (EFFER-K) 25 MEQ disintegrating tablet Take 1 tablet (25 mEq total) by mouth in the morning and 1 tablet (25 mEq total) before bedtime. Not In System Ref Prov ramipriL (ALTACE) 2.5 mg capsule Take 1 tablet by mouth in the morning. Not In System Ref Prov simvastatin (ZOCOR) 20 mg tablet Take 1 tablet (20 mg total) by mouth nightly. Not In System Ref Prov Social History: TOBACCO: reports that she has never smoked. She has never used smokeless tobacco. ETOH: reports no history of alcohol use. DRUGS: reports no history of drug use. OCCUPATION: Family History: No family history on file. Review of Systems: Constitutional: there has been no unanticipated weight loss, no change in energy level, sleep pattern, or activity level. Cardiovascular: See HPI Respiratory: No cough or wheezing, no sputum production, no hematemesis. Gastrointestinal: No abdominal pain, appetite loss, blood in stools, no change in bowel or bladder habits. Genitourinary: No dysuria, trouble voiding, or hematuria Musculoskeletal: No gait disturbance, weakness or joint complaints Neurological: No headache, diplopia, change in muscle strength, numbness or tingling. Unsteady gait recently OBJECTIVE LAST LABS: CBC: Results from last 7 days Lab Units 12/14/23 0445 WBC X10E9/L 7.3 HEMOGLOBIN g/dL 11.3* HEMATOCRIT % 31.6* MCV fL 89 PLATELETS X10E9/L 223 BMP: Results from last 7 days Lab Units 12/14/23 0445 SODIUM mmol/L 141 POTASSIUM mmol/L 4.0 CHLORIDE mmol/L 107 CO2 mmol/L 28 BUN mg/dL 18 CREATININE mg/dL 0.63 CALCIUM mg/dL 9.4 PT/INR: Results from last 7 days Lab Units 12/14/23 0445 PROTIME sec 10.2 INR 0.9 APTT: MAG: D Dimer: Troponin I ProBNP Lipid Panel: No results found for: CHOL , TRIG , HDL , CHOLHDLR Liver Panel: No results found for: ALB HgA1C: No results found for: HGBA1C ABG: RADIOLOGY: X-ray chest 1 view Result Date: 12/14/2023 Clinical History: Trauma. Portable Upright chest: 12/14/2023 Comparison: None Findings: A single portable view of the chest was obtained. Is mild cardiac prominence. Pulmonary vessels are not enlarged. No pneumothorax or focal infiltrate is evident. There is no visible pleural effusion. IMPRESSION: No acute infiltrate. Finalized by Vel Herrmann MD on 12/14/2023 5:25 AM PHYSICAL EXAM Admission Weight: Weight: 65.9 kg (145 lb 4.5 oz) No intake/output data recorded. Weight change: Wt Readings from Last 3 Encounters: 12/14/23 65.9 kg (145 lb 4.5 oz) Vitals: Vitals: 12/14/23 1300 12/14/23 1321 12/14/23 1330 12/14/23 1400 BP: 141/54 (!) 125/94 170/62 Pulse: 62 67 64 56 Resp: 22 17 15 17 Temp: 36.9 C (98.4 F) TempSrc: Oral SpO2: 98% 99% 100% 97% Weight: Height: Admit Weight Weight: 65.9 kg (145 lb 4.5 oz) Last 3 Weights Last 3 Weight Readings 12/14/23 0615 Weight: 65.9 kg (145 lb 4.5 oz) Body mass index is 25.74 kg/m . INTAKE/OUTPUT No intake/output data recorded. Intake/Output Summary (Last 24 hours) at 12/14/2023 1417 Last data filed at 12/14/2023 1119 Gross per 24 hour Intake 6 ml Output 0 ml Net 6 ml General appearance: Alert oriented and cooperative, in no acute distress Skin: cool and dry to touch Neck: No JVD, no carotid bruit, neck supple, trachea midline Lungs: Clear to ausculation bilaterally, no use of accessory muscles. Heart:: RRR with normal S1 and S2 , no murmurs and no gallops. Abdomen: Soft, non-tender, bowel sounds normal Extremities: No edema ASSESSMENT Fall, concern for syncopal event vs mechanical Subarachnoid hemorrhage CAD s/p CABGx4 14 y ago, per chart review stress test was unremarkable in 05/2023, following with [facility] cardiology No prior TTE on file Interventricular conduction delay on EKG PLAN - follow-up transthoracic echo - continuous telemetry, noted that was placed at [facility] following initial event - follow up troponin - cardiology will continue to follow Johnson Degroot MD This note was completed using a voice cash reconciliation specialist system. Every effort was made to ensure accuracy. However, inadvertent computerized cash reconciliation specialist errors may be present. Associated attestation - Jimmie Burkett MD - 12/14/2023 2:46 PM EDT I have personally performed a face to face diagnostic evaluation on this patient. I have reviewed the note authored by the resident physician and agree with the history of present illness, past medical history, surgical history, social history, family history and review of systems.. I have reviewed current medications, and lab values. My findings are below. 83-year-old female history of CABG 14 years ago 4 vessel, no revascularization since then presents with unwitnessed fall heard a thud She fell at least on her side if not the back of her head Found to have subarachnoid hemorrhage She recalls nothing of the events She is wobbly on her feet with a history of gait instability they were planning on getting a walker We are consulted for possible syncope She was at outside hospital and had a loop recorder implanted and then was transferred here Physical Exam Vital Signs: BP 144/64 Pulse (!) 47 Temp 36.9 C (98.4 F) (Oral) Resp 19 Ht 160 cm (5' 3 ) Wt 65.9 kg (145 lb 4.5 oz) SpO2 97% BMI 25.74 kg/m General appearance: Alert oriented and cooperative. In no acute distress Skin: Warm and Dry to touch Neck: No JVD, No carotid bruit. Neck supple, trachea midline Lungs: Clear to ausculation bilaterally, no use of accessory muscles. Heart:: regular rate and rhythm with normal S1 and S2 Abdomen: Soft, non-tender. Bowel sounds normal. Extremities: No edema. Intraventricular conduction delay on EKG Mildly prolonged QT No recent medication changes Impression 1. Possible syncope, has a subarachnoid hemorrhage. Which may have caused her fall. Or this was arrhythmic versus mechanical with her history of gait instability. Agree with continuing loop monitoring, this can be continued as an outpatient and she can follow up with her general production troubleshooter at [facility]. In the meantime we will get an echo which will give us a reasonable idea of the likelihood for ventricular arrhythmias but ultimately will be nondiagnostic. As far as ischemia concerned we are not suspicious of this as she has no baseline chest pain or tightness, we have sent a troponin. We will continue monitoring on telemetry Associated Order(s): IP CONSULT TO NEUROSURGERY Images from the original note were not included. [facility] [address] [place] [address], [address] [place] [address] * NEUROSURGERY CONSULT NOTE DATE:12/14/2023 PATIENT'S NAME: Kelin Rosenberg PATIENT'S PATIENT'S : 1940 NEUROSURGERY ATTENDING: Dr. Schmitt REASON FOR CONSULT Subarachnoid hemorrhage HISTORY OF PRESENT ILLNESS Kelin Rosenberg is a 83 y.o. White or female with PMH significant for HTN, HLD, and DM II who presented from OSH after she was found to have small subarachnoid hemorrhage on CT imaging. Patient initially fell this past Tuesday in the living room at home. She is amnestic to the events. Patient's at bedside reports he was in the other room when he heard a thud and found the patient on the floor. He called EMS for further assistance. Patient was taken to [facility] where initially CT of the brain was read negative. Patient was admitted for observation overnight and was sent home the next morning. Family later noticed she had slurred speech and subarachnoid hemorrhage was found on imaging studies. Patient was transferred to [facility] as a trauma consult and Neurosurgery has been consulted for further evaluation. Patient is on ASA 81 mg at home. On exam, patient is awake and alert. She reports headache and nausea and has had lack of appetite for several days. She denies any dizziness or lightheadedness or changes to vision. ALLERGIES Allergies Allergen Reactions Penicillins Rash MEDICATIONS Current Facility-Administered Medications: acetaminophen (TYLENOL EXTRA STRENGTH) tablet 1,000 mg, 1,000 mg, oral, Q6H PRN, Chio Ayoub, AGRIBUSINESS PROFESSOR-RETAIL DIRECTOR, 1,000 mg at 12/14/23 0631 dextrose (GLUTOSE) 40 % gel 15 g, 15 g, oral, PRN, VIKI Manuel dextrose 5 % (D5W) infusion, 100 mL/hr, intravenous, Continuous PRN, VIKI Manuel dextrose 50 % in water (D50W) 50% solution 25 mL, 25 mL, intravenous, PRN, VIKI Manuel glucagon HCL injection 1 mg, 1 mg, intramuscular, PRN, VIKI Manuel hydrALAZINE (APRESOLINE) injection 10 mg, 10 mg, intravenous, Q6H PRN, Chio Ayoub APRN-RETAIL DIRECTOR, 10 mg at 12/14/23 0631 insulin lispro (HumaLOG) injection 2-10 Units, 2-10 Units, subcutaneous, TID with meals, VIKI Manuel insulin lispro (HumaLOG) injection 2-8 Units, 2-8 Units, subcutaneous, Nightly, VIKI Manuel labetaloL (NORMODYNE,TRANDATE) injection 10 mg, 10 mg, intravenous, Q4H PRN, Chio Ayoub AGRIBUSINESS PROFESSOR-JAMESON levETIRAcetam (KEPPRA) IVPB 500 mg/100 mL in iso-osmotic sodium chloride (5 mg/mL premix), 500 mg, intravenous, Q12H NAZ OR levETIRAcetam (KEPPRA) tablet 500 mg, 500 mg, oral, Q12H NAZ, Chio Ayoub APRN-JAMESON ondansetron (PF) (ZOFRAN) injection 4 mg, 4 mg, intravenous, Q6H PRN, Chio Ayoub APRN-RETAIL DIRECTOR, 4 mg at 12/14/23 0832 sennosides-docusate sodium (SENOKOT-S) 8.6-50 mg 2 tablet, 2 tablet, oral, Nightly, Chio Ayoub AGRIBUSINESS PROFESSOR-RETAIL DIRECTOR sodium chloride 0.9 % flush 3 mL, 3 mL, intravenous, PRN, Chio Ayoub APRN-RETAIL DIRECTOR sodium chloride 0.9 % flush 3 mL, 3 mL, intravenous, Q12H NAZ, Chio Ayoub APRN-JAMESON sodium chloride 0.9 % infusion, 10 mL/hr, intravenous, Continuous PRN, VIKI Manuel, Last Rate: 10 mL/hr at 12/14/23 0802, 10 mL/hr at 12/14/23 0802 sodium chloride 0.9 % infusion, 75 mL/hr, intravenous, Continuous, VIKI Manuel PAST MEDICAL AND SURGICAL HISTORY No past medical history on file. No past surgical history on file. FAMILY HISTORY No family history on file. REVIEW OF SYSTEMS A 14 point review of systems was negative other than that documented in the HPI. PHYSICAL EXAMINATION Temp: [36.7 C (98.1 F)-37 C (98.6 F)] 36.7 C (98.1 F) Pulse: [56-73] 64 Resp: [12-29] 16 BP: (119-178)/(49-87) 119/49 SpO2: [94 %-100 %] 97 % O2 Device: None (Room air) The patient is in no acute distress. The patient is alert and oriented to person, place and time. Speech clear. [place] The patient exhibits unlabored breathing and normal respirations . Event monitor in place. The patient's abdomen is soft and non-tender. PERRL, EOMI, face symmetric, tongue midline, hears to finger rub bilaterally, symmetric shoulder shrug, facial sensation intact to light touch (V1, V2, V3). BUE/BLE strength and sensation intact There is no pronator drift Skin dry and intact LABORATORY DATA Results from last 7 days Lab Units 12/14/23 0621 12/14/23 0445 SODIUM mmol/L -- 141 POTASSIUM mmol/L -- 4.0 CREATININE mg/dL -- 0.63 BEDSIDE GLUCOSE mg/dL 110* -- GLUCOSE mg/dL -- 103* CALCIUM mg/dL -- 9.4 APTT sec -- 30 INR -- 0.9 WBC X10E9/L -- 7.3 HEMATOCRIT % -- 31.6* HEMOGLOBIN g/dL -- 11.3* PLATELETS X10E9/L -- [address] Brain: OSH ASSESSMENT 83 yo who presented to OSH following a fall with CT imaging demonstrating small subarachnoid hemorrhage PLAN - Imaging studies independently reviewed; there is no acute neurosurgical intervention warranted - Repeat CT brain today - Keppra x 7 days for seizure prophylaxis - SBP < 140 - Serial Neuro checks - Ok for PT/OT/ST - Ok for diet - Hold ASA - SCD's for DVT prophylaxis - Cardiology consulted for syncopal workup - No need to remain in ICU from NS standpoint - Further management per Trauma Jodie Sosa APRN-RETAIL DIRECTOR [facility] Contact via patient touch 12/14/23 11:12 AM Jodie Sosa APRN-JAMESON 12/14/23 1112 documented in this encounter [facility] [place] 12-19-2023 History of Present illness Narrative TRAUMA SURGERY - PROGRESS NOTE Patient: Kelin Rosenberg Date of : 1940 AGE 83 y.o. SEX female Assessment / Plan This is a 83 y.o. female with Injuries/Traumatic issues: Fall -PT/Ot assessed for SNF Multiple Subarachnoid hemorrhage (SAH) -Consult to NSx -Repeat CTH stable -Keppra 1g STAT, then Keppra 500mg BID for 7 days for seizure ppx -SBP less than 140 -12/14 okay for chemical DVT ppx -12/16 headaches improved Syncope -Cardiology consultation -[facility] -Telemetry -Loop recorder in place Lines and Tubes: PIV Pain control:Tylenol, Oxy, add Fioricet Nutrition: Regular Prophylaxis: Lovenox Disposition: Pt needs dispo planning, medically ready for DC MDM: Low Subjective Pt family at bedside, updated on status, and waxing and waning of her mentation while she continues to heal Nutational services calorie counts likely, might need to discuss PEG if pt cannot eat enough. Objective Vital signs: Vitals: 12/18/23 2155 12/18/23 2338 12/19/23 0351 12/19/23 0825 BP: 123/54 138/63 138/63 147/64 Pulse: 76 78 70 59 Resp: 19 18 Temp: 36.9 C (98.5 F) 36.4 C (97.6 F) 36.8 C (98.2 F) TempSrc: Oral Oral Oral SpO2: 98% 96% Weight: Height: Temperature Range Last 24 Hours : Temp: 36.8 C (98.2 F) Temp Av.7 C (98.1 F) Min: 36.4 C (97.6 F) Max: 36.9 C (98.5 F) Admit Weight: 65.9 kg (145 lb 4.5 oz) Body mass index is 25.54 kg/m . Last Weights: Wt Readings from Last 3 Encounters: 12/15/23 65.4 kg (144 lb 2.9 oz) I/O's: Intake/Output Summary (Last 24 hours) at 12/19/2023 1012 Last data filed at 12/19/2023 0353 Gross per 24 hour Intake 3 ml Output 700 ml Net -697 ml Physical Exam HEENT: Atraumatic EOMI PERRL 3mm, CN II-XII: grossly intact No Malocclusion Neck: Trachea Midline Non Tender to palpation No pain with Flex / Ext / Lat Flex / Rotation, Axial Load & distraction Lungs:Good air movement B, CTA B, No Ronchi, No Wheeze No Chest wall tenderness, No Crepitus Unlabored, On Room air Heart: Heart tones present, No Murmur noted, No CP, No palpitations Abd: Soft, No guarding, No rigidity No seatbelt sign / Brusing Non Tender RUQ / LUQ / RLQ / LLQ Extremities: RUE: 5/5 strength LUE: 5/5 strength RLE: 5/5 strength LLE: 5/5 strength Pulses 2+ x 4 Intact to light touch No calf/thigh tenderness Neuro: Alert, pleasant, apprprita, oriented x 4 Labs Results from last 7 days Lab Units 12/19/23 0621 12/18/23 0521 12/17/23 0531 12/16/23 0529 12/15/23 0321 WBC X10E9/L 6.1 7.1 6.6 6.0 7.5 HEMOGLOBIN g/dL 12.1 12.7 11.6* 11.8 12.4 HEMATOCRIT % 35.6 36.7 34.3* 33.6* 37.1 PLATELETS X10E9/L 264 255 252 215 224 Results from last 7 days Lab Units 12/19/23 0827 12/19/23 0621 12/18/23 2104 12/18/23 1527 12/18/23 1136 12/18/23 0749 12/18/23 0521 12/17/23 0821 12/17/23 0531 12/16/23 0918 12/16/23 0529 12/15/23 0800 12/15/23 0321 SODIUM mmol/L -- 139 -- -- -- -- 141 -- 142 -- 139 -- 141 POTASSIUM mmol/L -- 4.0 -- -- -- -- 3.9 -- 3.6 -- 3.7 -- 3.8 CO2 mmol/L -- 25 -- -- -- -- 27 -- 26 -- 24 -- 25 BUN mg/dL -- 17 -- -- -- -- 17 -- 13 -- 12 -- 14 CREATININE mg/dL -- 0.58 -- -- -- -- 0.66 -- 0.61 -- 0.51 -- 0.69 BEDSIDE GLUCOSE mg/dL 122* -- 159* 93 113* < > -- < > -- < > -- < > -- GLUCOSE mg/dL -- 105* -- -- -- -- 94 -- 108* -- 163* -- 147* < > = values in this interval not displayed. Results from last 7 days Lab Units 12/14/23 0445 INR 0.9 PROTIME sec 10.2 APTT sec 30 Recent Studies No results found. Allergies Allergies Allergen Reactions Penicillins Rash Current Medications SCHEDULED PRN ukcztgkqpf-jivtxuerphwzc-gpsw dextrose dextrose 5 % in water dextrose 50 % in water (D50W) glucagon (human recombinant) hydrALAZINE labetalol ondansetron oxyCODONE OR oxyCODONE sodium chloride sodium chloride 0.9 % Current Infusions SWAPNIL Levy 12/19/23 1016 TRAUMA SURGERY - PROGRESS NOTE Patient: Kelin Rosenberg Date of : 1940 AGE 83 y.o. SEX female Assessment / Plan This is a 83 y.o. female with Injuries/Traumatic issues: Fall -PT/Ot assessed for SNF Multiple Subarachnoid hemorrhage (SAH) -Consult to NSx -Repeat CTH stable -Keppra 1g STAT, then Keppra 500mg BID for 7 days for seizure ppx -SBP less than 140 -12/14 okay for chemical DVT ppx -12/16 headaches improved Syncope -Cardiology consultation -[facility] -Telemetry -Loop recorder in place Lines and Tubes: PIV Pain control:Tylenol, Oxy, add Fioricet Nutrition: Regular Prophylaxis: Lovenox Disposition: Pt needs dispo planning, medically ready for DC MDM: Low Subjective Pt doing well this morning. Sleepy this morning Objective Vital signs: Vitals: 12/17/23 2143 12/18/23 0000 12/18/23 0414 12/18/23 0750 BP: 138/58 116/46 133/59 Pulse: 74 66 57 58 Resp: 23 15 16 Temp: 36.9 C (98.4 F) 36.3 C (97.4 F) 36.8 C (98.2 F) TempSrc: Oral Axillary Oral SpO2: 94% 97% Weight: Height: Temperature Range Last 24 Hours : Temp: 36.8 C (98.2 F) Temp Av.8 C (98.3 F) Min: 36.3 C (97.4 F) Max: 37.5 C (99.5 F) Admit Weight: 65.9 kg (145 lb 4.5 oz) Body mass index is 25.54 kg/m . Last Weights: Wt Readings from Last 3 Encounters: 12/15/23 65.4 kg (144 lb 2.9 oz) I/O's: Intake/Output Summary (Last 24 hours) at 12/18/2023 1031 Last data filed at 12/17/2023 1800 Gross per 24 hour Intake 240 ml Output -- Net 240 ml Physical Exam HEENT: Atraumatic EOMI PERRL 3mm, CN II-XII: grossly intact No Malocclusion Neck: Trachea Midline Non Tender to palpation No pain with Flex / Ext / Lat Flex / Rotation, Axial Load & distraction Lungs:Good air movement B, CTA B, No Ronchi, No Wheeze No Chest wall tenderness, No Crepitus Unlabored, On Room air Heart: Heart tones present, No Murmur noted, No CP, No palpitations Abd: Soft, No guarding, No rigidity No seatbelt sign / Brusing Non Tender RUQ / LUQ / RLQ / LLQ Extremities: RUE: 5/5 strength LUE: 5/5 strength RLE: 5/5 strength LLE: 5/5 strength Pulses 2+ x 4 Intact to light touch No calf/thigh tenderness Neuro: Alert, pleasant, apprprita, oriented x 4 Labs Results from last 7 days Lab Units 12/18/23 0512/17/23 0512/16/2352812/15/2332012/14/235 WBC X10E9/L 7.1 6.6 6.0 7.5 7.3 HEMOGLOBIN g/dL 12.7 11.6* 11.8 12.4 11.3* HEMATOCRIT % 36.7 34.3* 33.6* 37.1 31.6* PLATELETS X10E9/L 255 252 215 224 223 Results from last 7 days Lab Units 12/18/23 0749 12/18/2352012/17/23 2153 12/17/23 1522 12/17/23 1254 12/17/2382012/17/2353012/16/2391712/16/2352812/15/2379912/15/2332012/14/2362012/14/235 SODIUM mmol/L -- 141 -- -- -- -- 142 -- 139 -- 141 -- 141 POTASSIUM mmol/L -- 3.9 -- -- -- -- 3.6 -- 3.7 -- 3.8 -- 4.0 CO2 mmol/L -- 27 -- -- -- -- 26 -- 24 -- 25 -- 28 BUN mg/dL -- 17 -- -- -- -- 13 -- 12 -- 14 -- 18 CREATININE mg/dL -- 0.66 -- -- -- -- 0.61 -- 0.51 -- 0.69 -- 0.63 BEDSIDE GLUCOSE mg/dL 101* -- 107* 118* 113* < > -- < > -- < > -- < > -- GLUCOSE mg/dL -- 94 -- -- -- -- 108* -- 163* -- 147* -- 103* < > = values in this interval not displayed. Results from last 7 days Lab Units 12/14/23444 INR 0.9 PROTIME sec 10.2 APTT sec 30 Recent Studies Vas venous duplex lwr bilateral Result Date: 12/17/2023 Right: Limited visualization of veins due to patient positioning. Lower extremity deep veins are compressible with spontaneous phasic spectral Doppler waveforms; superficial veins are compressible without intraluminal content. Left: Limited visualization of veins due to patient positioning. Non-visualized, absent or surgically harvested Great saphenous superficial vein in the thigh. Remaining visualized deep venous segments are compressible with spontaneous phasic spectral Doppler waveforms. Superficial veins are compressible. Conclusions: RIGHT:NO EVIDENCE of deep or superficial vein thrombosis of the lower extremity.LEFT:NO EVIDENCE of deep or superficial vein thrombosis of the lower extremity.The great saphenous vein is not visualized or surgically absent.Non- visualization of the internal, external, and common carotid artery due to neck bandaging Recommendations: Any questions prior to finalization, please call the reading physician during normal business hours at the phone number beside their name. Allergies Allergies Allergen Reactions Penicillins Rash Current Medications SCHEDULED PRN rybyqgsvps-pffmdyooxyyib-bbmp dextrose dextrose 5 % in water dextrose 50 % in water (D50W) glucagon (human recombinant) hydrALAZINE labetalol ondansetron oxyCODONE OR oxyCODONE sodium chloride sodium chloride 0.9 % Current Infusions SWAPNIL Levy 12/18/23 1037 SWAPNIL Levy 12/18/23 1038 TRAUMA SURGERY - PROGRESS NOTE Patient: Kelin Rosenberg Date of : 1940 AGE 83 y.o. SEX female Assessment / Plan This is a 83 y.o. female with Injuries/Traumatic issues: Fall -PT/Ot assessed for SNF Multiple Subarachnoid hemorrhage (SAH) -Consult to NSx -Repeat CTH stable -Keppra 1g STAT, then Keppra 500mg BID for 7 days for seizure ppx -SBP less than 140 -12/14 okay for chemical DVT ppx -12/16 headaches improved Syncope -Cardiology consultation -[facility] -Telemetry -Loop recorder in place Lines and Tubes: PIV Pain control:Tylenol, Oxy, add Fioricet Nutrition: Regular Prophylaxis: Lovenox Disposition: Pt needs dispo planning Subjective Pt has improved headache, and mentation this morning Objective Vital signs: Vitals: 12/16/23 2135 12/17/23 0000 12/17/23 0400 12/17/23 0822 BP: 109/56 125/55 136/65 141/58 Pulse: 75 64 68 74 Resp: 15 17 18 Temp: 37.1 C (98.7 F) 37 C (98.6 F) 36.6 C (97.9 F) TempSrc: Oral Oral Oral SpO2: 96% 95% 94% Weight: Height: Temperature Range Last 24 Hours : Temp: 36.6 C (97.9 F) Temp Av.9 C (98.4 F) Min: 36.6 C (97.9 F) Max: 37.1 C (98.7 F) Admit Weight: 65.9 kg (145 lb 4.5 oz) Body mass index is 25.54 kg/m . Last Weights: Wt Readings from Last 3 Encounters: 12/15/23 65.4 kg (144 lb 2.9 oz) I/O's: Intake/Output Summary (Last 24 hours) at 12/17/2023 1327 Last data filed at 12/17/2023 0900 Gross per 24 hour Intake 420 ml Output 700 ml Net -280 ml Physical Exam HEENT: Atraumatic EOMI PERRL 3mm, CN II-XII: grossly intact No Malocclusion Neck: Trachea Midline Non Tender to palpation No pain with Flex / Ext / Lat Flex / Rotation, Axial Load & distraction Lungs:Good air movement B, CTA B, No Ronchi, No Wheeze No Chest wall tenderness, No Crepitus Unlabored, On Room air Heart: Heart tones present, No Murmur noted, No CP, No palpitations Abd: Soft, No guarding, No rigidity No seatbelt sign / Brusing Non Tender RUQ / LUQ / RLQ / LLQ Extremities: RUE: 5/5 strength LUE: 5/5 strength RLE: 5/5 strength LLE: 5/5 strength Pulses 2+ x 4 Intact to light touch No calf/thigh tenderness Neuro: Alert, pleasant, appropriate, Oriented to person, place, time Labs Results from last 7 days Lab Units 12/17/23 0531 12/16/23 0529 12/15/23 0321 12/14/23 0445 WBC X10E9/L 6.6 6.0 7.5 7.3 HEMOGLOBIN g/dL 11.6* 11.8 12.4 11.3* HEMATOCRIT % 34.3* 33.6* 37.1 31.6* PLATELETS X10E9/L 252 215 224 223 Results from last 7 days Lab Units 12/17/23 1254 12/17/23 0821 12/17/23 0531 12/16/23 2116 12/16/23 1559 12/16/23 0918 12/16/23 0529 12/15/23 0800 12/15/23 0321 12/14/23 0621 12/14/23 0445 SODIUM mmol/L -- -- 142 -- -- -- 139 -- 141 -- 141 POTASSIUM mmol/L -- -- 3.6 -- -- -- 3.7 -- 3.8 -- 4.0 CO2 mmol/L -- -- 26 -- -- -- 24 -- 25 -- 28 BUN mg/dL -- -- 13 -- -- -- 12 -- 14 -- 18 CREATININE mg/dL -- -- 0.61 -- -- -- 0.51 -- 0.69 -- 0.63 BEDSIDE GLUCOSE mg/dL 113* 100* -- 101* 105* < > -- < > -- < > -- GLUCOSE mg/dL -- -- 108* -- -- -- 163* -- 147* -- 103* < > = values in this interval not displayed. Results from last 7 days Lab Units 12/14/235 INR 0.9 PROTIME sec 10.2 APTT sec 30 Recent Studies Vas venous duplex lwr bilateral Result Date: 12/17/2023 Right: Limited visualization of veins due to patient positioning. Lower extremity deep veins are compressible with spontaneous phasic spectral Doppler waveforms; superficial veins are compressible without intraluminal content. Left: Limited visualization of veins due to patient positioning. Non-visualized, absent or surgically harvested Great saphenous superficial vein in the thigh. Remaining visualized deep venous segments are compressible with spontaneous phasic spectral Doppler waveforms. Superficial veins are compressible. Recommendations: Any questions prior to finalization, please call the reading physician during normal business hours at the phone number beside their name. Allergies Allergies Allergen Reactions Penicillins Rash Current Medications SCHEDULED PRN hwionmnxzj-eklswuvzubbuu-xkzt dextrose dextrose 5 % in water dextrose 50 % in water (D50W) glucagon (human recombinant) hydrALAZINE labetalol ondansetron oxyCODONE OR oxyCODONE sodium chloride sodium chloride 0.9 % Current Infusions SWAPNIL Levy 12/17/23 1329 Images from the original note were not included. FOLLOW-UP: Post-Intensive Care Rounding Note Patient: Kelin Rosenberg : 1940 Age: 83 y.o. Length of Stay: 2 days Admission Diagnosis: Syncope [R55] ICH (intracerebral hemorrhage) ([facility]) [I61.9] Reviewing patient due to her recent transfer out from Intensive Care. Recorded vital signs are stable and the patient is not noted to be in any apparent distress. Telemetry and monitoring noted. Staff may call with any issues or concerns regarding her clinical presentation or stability. Thank you, Lulu Jimenez RN Rapid Response: [facility] Images from the original note were not included. FOLLOW-UP: Post-Intensive Care Rounding Note Patient: Kelin Rosenberg : 1940 Age: 83 y.o. Length of Stay: 2 days Admission Diagnosis: Syncope [R55] ICH (intracerebral hemorrhage) ([facility]) [I61.9] Reviewing patient due to her recent transfer out from Intensive Care. Recorded vital signs are stable and the patient is not noted to be in any apparent distress. Telemetry and monitoring noted. Staff may call with any issues or concerns regarding her clinical presentation or stability. Thank you, INEZ MONTEMAYOR RN Rapid Response: [facility] TRAUMA SURGERY - PROGRESS NOTE Patient: Kelin Rosenberg Date of : 1940 AGE 83 y.o. SEX female Assessment / Plan This is a 83 y.o. female with Injuries/Traumatic issues: Fall -PT/Ot assessed for Multiple Subarachnoid hemorrhage (SAH) -Consult to NSx -Repeat CTH stable -Keppra 1g STAT, then Keppra 500mg BID for 7 days for seizure ppx -SBP less than 140 -12/14 okay for chemical DVT ppx Syncope -Cardiology consultation -[facility] -Telemetry -Loop recorder in place Lines and Tubes: PIV Pain control:Tylenol, Oxy, add Fioricet Nutrition: Regular Prophylaxis: Lovenox Disposition: Pt needs dispo planning Subjective The patient is lethargic but stable per my exam. 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 Attempting to get her pain under better control Objective Vital signs: Vitals: 12/16/23 0446 12/16/23 0448 12/16/23 0600 12/16/23 0819 BP: 116/68 124/56 129/64 Pulse: 75 66 71 Resp: 10 18 13 20 Temp: 36.6 C (97.9 F) TempSrc: Axillary SpO2: 94% 92% 98% Weight: Height: Temperature Range Last 24 Hours : Temp: 36.6 C (97.9 F) Temp Av.7 C (98 F) Min: 36.4 C (97.6 F) Max: 36.9 C (98.4 F) Admit Weight: 65.9 kg (145 lb 4.5 oz) Body mass index is 25.54 kg/m . Last Weights: Wt Readings from Last 3 Encounters: 12/15/23 65.4 kg (144 lb 2.9 oz) I/O's: Intake/Output Summary (Last 24 hours) at 12/16/2023 0855 Last data filed at 12/15/20232044 Gross per 24 hour Intake -- Output 150 ml Net -150 ml Physical Exam HEENT: Atraumatic EOMI PERRL 3mm, CN II-XII: grossly intact No Malocclusion Neck: Trachea Midline Non Tender to palpation No pain with Flex / Ext / Lat Flex / Rotation, Axial Load & distraction Lungs:Good air movement B, CTA B, No Ronchi, No Wheeze No Chest wall tenderness, No Crepitus Unlabored, On Room air Heart: Heart tones present, No Murmur noted, No CP, No palpitations Abd: Soft, No guarding, No rigidity No seatbelt sign / Brusing Non Tender RUQ / LUQ / RLQ / LLQ Extremities: RUE: 5/5 strength LUE: 5/5 strength RLE: 5/5 strength LLE: 5/5 strength Pulses 2+ x 4 Intact to light touch No calf/thigh tenderness Neuro: Alert, pleasant, appropriate, Oriented to person, place, time Lethargic Labs Results from last 7 days Lab Units 12/16/23 0529 12/15/23 0321 12/14/23 0445 WBC X10E9/L 6.0 7.5 7.3 HEMOGLOBIN g/dL 11.8 12.4 11.3* HEMATOCRIT % 33.6* 37.1 31.6* PLATELETS X10E9/L 215 224 223 Results from last 7 days Lab Units 12/16/23 0529 12/15/23 2132 12/15/23 1701 12/15/23 1303 12/15/23 0800 12/15/23 0321 12/14/23 0621 12/14/23 0445 SODIUM mmol/L 139 -- -- -- -- 141 -- 141 POTASSIUM mmol/L 3.7 -- -- -- -- 3.8 -- 4.0 CO2 mmol/L 24 -- -- -- -- 25 -- 28 BUN mg/dL 12 -- -- -- -- 14 -- 18 CREATININE mg/dL 0.51 -- -- -- -- 0.69 -- 0.63 BEDSIDE GLUCOSE mg/dL -- 156* 107* 117* 118* -- < > -- GLUCOSE mg/dL 163* -- -- -- -- 147* -- 103* < > = values in this interval not displayed. Results from last 7 days Lab Units 12/14/23 0445 INR 0.9 PROTIME sec 10.2 APTT sec 30 Recent Studies Echo complete W/ contrast Result Date: 12/15/2023 Left Ventricle: Left ventricle appears normal in size. Systolic function is normal with an ejection fraction of 60-65%. Aortic Valve: There is no regurgitation or stenosis. Mitral Valve: There is trace regurgitation. There is no evidence of mitral valve stenosis. Tricuspid Valve: There is trace regurgitation. Allergies Allergies Allergen Reactions Penicillins Rash Current Medications SCHEDULED PRN odbpbcrjnw-pxtnjygodrcrd-swjz dextrose dextrose 5 % in water dextrose 50 % in water (D50W) glucagon (human recombinant) hydrALAZINE labetalol ondansetron oxyCODONE OR oxyCODONE sodium chloride sodium chloride 0.9 % Current Infusions BOB LEVIN APRN-SWAPNIL Hilton 12/16/23 0905 Images from the original note were not included. FOLLOW-UP: Post-Intensive Care Rounding Note Patient: Kelin Rosenberg : 1940 Age: 83 y.o. Length of Stay: 2 days Admission Diagnosis: Syncope [R55] ICH (intracerebral hemorrhage) ([facility]) [I61.9] Reviewing patient due to her recent transfer out from Intensive Care. Recorded vital signs are stable and the patient is not noted to be in any apparent distress. Telemetry and monitoring noted. Staff may call with any issues or concerns regarding her clinical presentation or stability. Thank you, Lulu Jimenez RN Rapid Response: [facility] TRAUMA SURGERY - PROGRESS NOTE Patient: Kelin Rosenberg Date of : 1940 AGE 83 y.o. SEX female Assessment / Plan Mechanism: Fall 2 days ago Tertiary Examination: 12/14 bilateral upper and lower extremities palpated with no new injuries appreciated. Injuries/Traumatic issues: Fall/syncope -TraumaGram -CT Head : small SAH in the R precentral sulcus is unchanged, there is a small amount of SAH at the R temporal lobe & medial left frontal lobe has resolved. Development of 0.9cm x 0.8 cm hyperdense SAH at left insular cortex. SAH in the left temporal lobe & superior cerebellar cistern & quadrigeminal cistern. -CXR : unremarkable -TraumaLabs -CMP -CBC -Coags, PT/INR -Amylase -Lipase -Ethanol -Urine Drug screen -Urinalysis 2. Scattered subarachnoid hemorrhages - Hold ASA - development of small new bleeds, admit to Neuro ICU for close monitoring - consult Neurosurgery - Keep SBP less then 140 - 12/05 repeat CTH x2 stable - Keppra 3. Syncope - consult cardiology - EKG - echo, trend troponins Comorbidities/Medical issues: Neuro- Pulm- Cardio- history of CABG GI- - Heme- ID- MSK- Endo- Lytes- Lines and Tubes: PIV Nutrition: Regular diet Prophylaxis: EPC cuffs, will discuss chemical DVT prophylaxis with Neurosurgery Disposition: Will probably transfer to step-down today. PT/OT to evaluate Subjective Patient had quite a significant headache overnight was evaluated. Had repeat CT head that was stable. Given a dose IV fentanyl and had much pain relief. The slept okay through the night. Objective Vital signs: Vitals: 12/15/23 0700 12/15/23 0730 12/15/23 0800 12/15/23 0821 BP: 119/55 119/61 135/54 Pulse: 60 63 73 66 Resp: 19 20 14 18 Temp: 36.7 C (98 F) TempSrc: Oral SpO2: 94% 94% 94% 94% Weight: Height: Temperature Range Last 24 Hours : Temp: 36.7 C (98 F) Temp Av.8 C (98.2 F) Min: 36.7 C (98 F) Max: 36.9 C (98.4 F) Admit Weight: 65.9 kg (145 lb 4.5 oz) Body mass index is 25.54 kg/m . Last Weights: Wt Readings from Last 3 Encounters: 12/15/23 65.4 kg (144 lb 2.9 oz) I/O's: Intake/Output Summary (Last 24 hours) at 12/15/2023 0914 Last data filed at 12/15/2023 0300 Gross per 24 hour Intake 1472.79 ml Output 1050 ml Net 422.79 ml Physical Exam HEENT: Atraumatic EOMI PERRL 4mm Neck: Trachea Midline Lungs:Good air movement B, CTA B, No Ronchi, No Wheeze No Chest wall tenderness, No Crepitus Unlabored, On Room air Heart: Heart tones present, No Murmur noted, No CP, No palpitations Abd: Soft, No guarding, No rigidity No Nausea No Emesis No seatbelt sign / Brusing Non Tender RUQ / LUQ / RLQ / LLQ Extremities: RUE: 5/5 strength LUE: 5/5 strength RLE: 5/5 strength LLE: 5/5 strength Pulses 2+ x 4 Neuro: Alert, pleasant, appropriate, Oriented to person, place, time - no distress Labs Results from last 7 days Lab Units 12/15/23 0321 12/14/23 0445 WBC X10E9/L 7.5 7.3 HEMOGLOBIN g/dL 12.4 11.3* HEMATOCRIT % 37.1 31.6* PLATELETS X10E9/L 224 223 Results from last 7 days Lab Units 12/15/23 0800 12/15/23 0321 12/14/23 2211 12/14/23 1734 12/14/23 1108 12/14/23 0621 12/14/23 0445 SODIUM mmol/L -- 141 -- -- -- -- 141 POTASSIUM mmol/L -- 3.8 -- -- -- -- 4.0 CO2 mmol/L -- 25 -- -- -- -- 28 BUN mg/dL -- 14 -- -- -- -- 18 CREATININE mg/dL -- 0.69 -- -- -- -- 0.63 BEDSIDE GLUCOSE mg/dL 118* -- 111* 99 132* < > -- GLUCOSE mg/dL -- 147* -- -- -- -- 103* < > = values in this interval not displayed. Results from last 7 days Lab Units 12/14/23 0445 INR 0.9 PROTIME sec 10.2 APTT sec [address] brain without contrast Result Date: 12/14/2023 History: SAH Headache Exam/Technique: CT images of [...] Efraín Gamble MD on 12/14/2023 10:[address] brain without contrast Result Date: 12/14/2023 CT BRAIN WO CONT: 12/14/2023 PROVIDED HISTORY: [...] or depressed calvarial fracture. Intracranial atherosclerosis. Absent [place] lenses. Visualized mastoid air cells are well [...] Devendra Cabrera MD on 12/14/2023 3:08 PM Allergies Allergies Allergen Reactions Penicillins Rash Current Medications SCHEDULED PRN acetaminophen dextrose dextrose 5 % in water dextrose 50 % in water (D50W) glucagon (human recombinant) hydrALAZINE labetalol ondansetron sodium chloride sodium chloride 0.9 % Current Infusions Attending MD LAKE Villagomez APRN-CNP Trauma Services Pager: [phone] 12/15/23 9:14 AM SWAPNIL Arias 12/15/23 09 Images from the original note were not included. [facility]IC SERVICE PROGRESS NOTE Kelin Rosenberg SUBJECTIVE Subjective History of Present Illness: Kelin Rosenberg is a 83 y.o. 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 Reportedly she was doing well however 3 days ago she had a fall, unwitnessed, her heard her fall and found her laying down alert, breathing but not able to talk and called EMS. She was admitted initially to [place], where imaging revealed subarachnoid hemorrhage, otherwise hemodynamically stable, sinus rhythm. She got a loop recorder implanted there and was transferred to [facility] neuro ICU. Cardiology was consulted for concern for syncope. Patient does not remember any of the events around the fall and does not know if she passed out or not. She denies any prior similar episode, pain, shortness of breath, palpitations, presyncope, lightheadedness. Per family she had been in her usual state of health except likely she has had more gait unsteadiness. No recent medication changes. No prior TTE on file. Interval Hx: 12/15/23: Patient seen and examined while sitting on her chair. In NAD, except feeling some nausea. No overnight events. She endorsed no chest pain or palpitation or dizziness Allergies: Allergies Allergen Reactions Penicillins Rash Review of Systems Reason unable to perform ROS: Patient was disoriented. OBJECTIVE Objective CBC: Results from last 7 days Lab Units 12/15/23 0321 12/14/23 0445 WBC X10E9/L 7.5 7.3 HEMOGLOBIN g/dL 12.4 11.3* HEMATOCRIT % 37.1 31.6* MCV fL 91 89 PLATELETS X10E9/L 224 223 BMP: Results from last 7 days Lab Units 12/15/23 0321 12/14/23 0445 SODIUM mmol/L 141 141 POTASSIUM mmol/L 3.8 4.0 CHLORIDE mmol/L 105 107 CO2 mmol/L 25 28 BUN mg/dL 14 18 CREATININE mg/dL 0.69 0.63 CALCIUM mg/dL 9.4 9.4 PT/INR: Results from last 7 days Lab Units 12/14/23 0445 PROTIME sec 10.2 INR 0.9 APTT: MAG: D Dimer: Troponin I ProBNP Lipid Panel: No results found for: CHOL , TRIG , HDL , CHOLHDLR Liver Panel: No results found for: ALB HgA1C: No results found for: HGBA1C ABG: Telemetry: Regular sinus rhythm EKG: No results found. LAST ECHO (Within 2 Years) No results found. LAST STRESS (Within 2 Years) No results found. CATH: (Within 2 Years) No results found. RADIOLOGY: CT brain without contrast Result Date: 12/14/2023 History: SAH Headache Exam/Technique: CT images of [...] Efraín Gamble MD on 12/14/2023 10:[address] brain without contrast Result Date: 12/14/2023 CT BRAIN WO CONT: 12/14/2023 PROVIDED HISTORY: [...] or depressed calvarial fracture. Intracranial atherosclerosis. Absent [place] lenses. Visualized mastoid air cells are well [...] Devendra Cabrera MD on 12/14/2023 3:08 PM PHYSICAL EXAM Admission Weight: Weight: 65.9 kg (145 lb 4.5 oz) I/O last 3 completed shifts: In: 1472.8 [P.O.:240; I.V.:1042.3; IV Piggyback:190.5] Out: 1050 [Urine:1050] Weight change: -0.5 kg (-1 lb 1.6 oz) Wt Readings from Last 3 Encounters: 12/15/23 65.4 kg (144 lb 2.9 oz) Vitals: Vitals: 12/15/23 0508 12/15/23 0600 12/15/23 0700 12/15/23 0730 BP: 104/77 116/71 119/55 119/61 Pulse: 75 79 60 63 Resp: 15 20 19 20 Temp: 36.7 C (98 F) TempSrc: Oral SpO2: 96% 96% 94% 94% Weight: Height: Admit Weight Weight: 65.9 kg (145 lb 4.5 oz) Last 3 Weights Last 3 Weight Readings 12/14/23 0615 12/15/23 0136 Weight: 65.9 kg (145 lb 4.5 oz) 65.4 kg (144 lb 2.9 oz) Body mass index is 25.54 kg/m . INTAKE/OUTPUT I/O last 3 completed shifts: In: 1472.8 [P.O.:240; I.V.:1042.3; IV Piggyback:190.5] Out: 1050 [Urine:1050] Intake/Output Summary (Last 24 hours) at 12/15/2023 0810 Last data filed at 12/15/2023 0300 Gross per 24 hour Intake 1472.79 ml Output 1050 ml Net 422.79 ml BP 119/61 Pulse 63 Temp 36.7 C (98 F) (Oral) Resp 20 Ht 160 cm (5' 3 ) Wt 65.4 kg (144 lb 2.9 oz) SpO2 94% BMI 25.54 kg/m Physical Exam Constitutional: General: She is not in acute distress. Appearance: Normal appearance. She is not ill-appearing. Cardiovascular: Rate and Rhythm: Normal rate and regular rhythm. Pulses: Normal pulses. Heart sounds: No murmur heard. Pulmonary: Effort: No respiratory distress. Breath sounds: No wheezing. Abdominal: General: There is no distension. Tenderness: There is no abdominal tenderness. 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 Troponin was negative No prior TTE on file, plan to do TTE on 12/15/2023 Telemetry showed regular sinus rhythm with no tachycardia / Afib/irregularity. PLAN follow-up transthoracic echo, we will sign off if echo result is normal continuous telemetry, noted that was placed at [facility] following initial event Rest of management by primary team cardiology will continue to follow Rhett Treviño MD Internal Medicine, PGY-1 12/15/2023 8:10 AM NOTE: This note should be attested by the attending, this is not the final plan, please refer to the attestation statement. [facility] CARDIOLOGY TEACHING SERVICE This note was completed using a voice cash reconciliation specialist system. Every effort was made to ensure accuracy. However, inadvertent computerized cash reconciliation specialist errors may be present. Associated attestation - Jimmie Burkett MD - 12/15/2023 1:32 PM EDT I have personally performed a face to face diagnostic evaluation on this patient. I have reviewed the note authored by the were resident physician and agree with the history of present illness, past medical history, surgical history, social history, family history and review of systems.. I have reviewed current medications, and lab values. My findings are below. No events overnight Physical Exam Vital Signs: BP 153/60 Pulse 67 Temp 36.5 C (97.7 F) (Axillary) Resp 19 Ht 160 cm (5' 3 ) Wt 65.4 kg (144 lb 2.9 oz) SpO2 96% BMI 25.54 kg/m O2 Flow Rate (L/min): 0 L/min General appearance: Alert oriented and cooperative. In no acute distress Skin: Warm and Dry to touch Neck: No JVD, No carotid bruit. Neck supple, trachea midline Lungs: Clear to ausculation bilaterally, no use of accessory muscles. Heart:: regular rate and rhythm with normal S1 and S2 Abdomen: Soft, non-tender. Bowel sounds normal. Extremities: No edema. Syncope Unclear if she had subarachnoid hemorrhage 1st and then syncope or vice versa Seems unlikely to get a subarachnoid from a fall and trauma however CABG 14 years ago follows with [facility] A loop recorder was placed by [facility] I believe She can follow-up in the office with them shortly after discharge We will get an echocardiogram No further plans from a cardiac standpoint will sign off Name: Kelin Rosenberg Date: 12/14/2023 Length of Stay: 0 day(s) ACTIVE PROBLEM LIST: Fall Subarachnoid hemorrhage Syncope Transient slurring of the speech, now resolved ASSESSMENT/PLAN: 1. Neuro: Neurochecks Keppra Consult Neurosurgery Repeat CT head in a.m. 2. Cardio: Continues hemodynamic monitoring Maintain map above 65 Goal systolic blood pressure 130 to 150 3. Resp: Maintain O2 sat > 92% Monitor for signs and respiratory distress Encourage deep breathing exercise and pulmonary toilet 4. GI: NPO Bowel regimen 5. Heme: Monitor H&H Transfuse for hb less than 7 or symptomatic anemia 6. Renal: Monitor urine output Monitor renal function ICU electrolyte replacement protocol 7. ID: Monitor for signs and symptoms of sepsis 8. Endo: Monitor blood sugar Use insulin sliding scale as needed 9. MS: Pressure ulcer prophylaxis 10: Prophylaxis: DVT mechanical prophylaxis DVT chemical prophylaxis on hold due to brain bleed Dispo: Critical Patient was found to have an intracranial hemorrhage. This places the patient at a high risk for serious life altering/ changing effects; such as memory loss, paralysis, hemiparalysis, post traumatic seizure disorder, or post concussive symptoms of headache and light sensitivity. This can be made even more serious if the patient is on blood thinners. Following the Monro-Doctrine we need to closely monitor the brain bleed so that there is not worsening edema and compression on the brain tissue which could cause more hypoxia or worse case scenario herniation of the brainstem and . Critical care time spent directly with the patient and family: 36 min Critical care was time spent personally by me on the following activities: Development of treatment plan with the patient or surrogate, discussions with consultants, discussions with the primary provider, ordering and performing treatments and interventions, ordering and review of laboratory studies, ordering and review of radiographic studies, pulse oximetry, re-evaluation of patient's condition, review of old charts, vascular access procedures, evaluation of patient's response to treatment, examination of patient, interpretation of cardiac output measurements and obtaining history from patient or surrogate Electronically signed by Kyle Horton MD [facility] Trauma, Acute Care Surgery and Surgical Critical Care documented in this encounter [facility] 12-19-2023 Plan of care note Problem: Pain Goal: Patient goal is pain score less than 4, able to rest, and participant in treatment plan as appropriate Description: INTERVENTIONS: 1. Encourage patient or legal termite control service representative to report early pain and ask for pain medicine when needed 2. Assess pain using appropriate pain scale and include the scale used when documenting 3. Administer analgesics based on type and severity of pain and evaluate response within appropriate time frame 4. Implement non-pharmacological measures as appropriate and evaluate response 5. Consider cultural and social influences on pain and pain management 6. Notify LIP if interventions ineffective or patient reports new pain 7. Monitor vital signs including pulse ox, end-tidal CO2 based on pain intervention 8. Reassess pain per policy 9. Teach patient or legal termite control service representative interventions for comforting Outcome: Progressing Note: Evaluation of progress towards goal: robertson controlled with prn meds [facility] 12-19-2023 Plan of care note Problem: Pain Goal: Patient goal is pain score less than 4, able to rest, and participant in treatment plan as appropriate Description: INTERVENTIONS: 1. Encourage patient or legal termite control service representative to report early pain and ask for pain medicine when needed 2. Assess pain using appropriate pain scale and include the scale used when documenting 3. Administer analgesics based on type and severity of pain and evaluate response within appropriate time frame 4. Implement non-pharmacological measures as appropriate and evaluate response 5. Consider cultural and social influences on pain and pain management 6. Notify LIP if interventions ineffective or patient reports new pain 7. Monitor vital signs including pulse ox, end-tidal CO2 based on pain intervention 8. Reassess pain per policy 9. Teach patient or legal termite control service representative interventions for comforting Outcome: Progressing Note: Evaluation of progress towards goal: Patient can verbalize comfort level throughout shift, plan of care still ongoing and manage with pain meds or any other pain management. Problem: Safety Goal: Patient will be injury free during hospitalization Description: INTERVENTIONS: 1. Assess patient's risk for falls and implement fall prevention plan of care per policy 2. Provide and maintain a safe environment 3. Proper use of double Identifiers 4. Medication administration using the 5 rights 5. Hand hygiene 6. Specimens are labeled at the bedside 7. Instruct patient/ patient termite control service representative about use of safety devices 8. Include patient/ patient termite control service representative in decisions related to safety Outcome: Progressing Note: Evaluation of progress towards goal: Patient remains free injury at current shift, plan of care still ongoing. Problem: Infection Goal: Absence of infection during hospitalization Description: Interventions: 1. Assess and monitor for signs and symptoms of infection 2. Monitor lab/diagnostic results 3. Monitor all insertion sites i.e., indwelling lines, tubes and drains 4. Monitor endotracheal (as able) and nasal secretions for changes in amount and color 5. Administer medications as ordered 6. Instruct and encourage patient and family to use good hand hygiene technique 7. Identify and instruct patient/patient termite control service representative in use of appropriate isolation precautions for identified infection/symptoms 8. Provide and discuss with patient/patient termite control service representative on educational MDRO sheet 9. Encourage and monitor nutritional status daily and consult wholesale loan processor if indicated 10. Implement neutropenic guidelines as needed 11. Review exposure to history of communicable disease and recent travel history on admission 12. Encourage annual influenza vaccine 13. Encourage pneumonia vaccine Outcome: Progressing Note: Evaluation of progress towards goal: Patient remains free from signs and symptoms of infections at current time, plan of care still ongoing. Problem: Knowledge Deficit Goal: Patient/patient termite control service representative demonstrates understanding of disease process, treatment plan, medications, and discharge instructions Description: INTERVENTIONS 1. Complete learning assessment and assess knowledge base 2. Provide teaching at level of understanding 3. Provide teaching via preferred learning method(s) Outcome: Progressing Note: Evaluation of progress towards goal: Patient has been able to demonstrate understanding of disease process, treatment plan, medications and discharge instructions. Problem: Discharge Planning Goal: Discharge to post-acute care, other facility, or home with appropriate resources Description: Patient's goal is: INTERVENTIONS 1. Conduct assessment to determine patient/family and health care team treatment goals, and need for post-acute services based on payer coverage, community resources, and patient preferences, and barriers to discharge 2. Coordinate with Social work, Care Navigation, and Utilization Review to arrange appropriate level of services according to patient's needs based on patient preference and payer coverage in collaboration with the physician and health care team 3. Address psychosocial, clinical, and financial barriers to discharge as identified in assessment in conjunction with the patient/family and health care team 4. Consult appropriate ancillary services (i.e.. PT/OT/ST, etc) as needed 5. Communicate with and update the patient/family, physician, and health care team regarding progress on the discharge plan 6. Identify discharge learning needs (meds, wound care, etc). 7. Arrange for needed discharge transportation as appropriate Outcome: Progressing Note: Evaluation of progress towards goal: Patient is planned to be discharged to a prison facility with appropriate resources. Problem: Moderate - High Risk Fall Score Description: Coleman Fall Score of =/> 25 or indicated by [facility] Rehab Assessment Goal: Patient should be free from fall Description: Interventions: 1. [place] to environment 2. Hourly rounds addressing the 4 P's (Pain, Positioning, Possessions, Potty) 3. Clear area of hazards (spills, clutter, electrical cords, unnecessary equipment) 4. Place equipment (bed & TV controls, call light, phone, urinal) within reach 5. Encourage patient to wear glasses and hearing aides as appropriate 6. Maintain bed in lowest position 7. Lock wheels on bed/wheelchair 8. Provide adequate lighting, including night light 9. Assess need for additional bedding, food/fluids, pain med's prior to sleep/routinely 10. Provide gripper slippers or personal non-skid footwear 11. Teach patient and patient termite control service representative to maintain environment for safety and engage in all aspects of fall prevention program 12. Remind patient to call for help before getting out of bed 13. Initiate bed/chair/exit alarms supportive devices as appropriate, (chair wedge, no-skid floor mat, raised edge mattress, hip protectors) 14. Locate patient bed assignment for optimal visualization 15. Evaluate and identify Safe Patient Handling Equipment needs 16. Provide supervision when out of bed or chair 17. Utilize gait belt as needed to assist with ambulation 18. Place adaptive equipment (cane, walker) within reach 19. Request patient termite control service representative bring adaptive equipment/mobility aids from home or obtain and provide as needed 20. Consult pharmacy regarding effects of med's affecting mobility, cognition, and alternatives 21. Obtain physician order for PT if risk factors associated with mobility are present 22. Obtain physician order for OT as appropriate 23. Utilize diversional activities 24. Educate patient and patient termite control service representative how to maintain a safe environment during visitation times (notify nurse prior to leaving bedside) 25. Consider appropriateness of medical or non-neuropsychology medical consultant 26. Set up voiding schedule as appropriate (every 2 hours) Outcome: Progressing Note: Evaluation of progress towards goal: Patient remains free from falls at current time, plan of care still ongoing. Problem: Potential for Compromised Skin Integrity Goal: Skin integrity is maintained or improved Description: Patient's goal is: INTERVENTIONS 1. Perform initial skin assessment on admission and as needed 2. Turn patient every 2 hours and PRN 3. Relieve pressure to bony prominences 4. Avoid shearing 5. Keep skin clean and dry 6. Alternate a full bath with partial baths for elderly 7. Apply lotion/moisturizer on skin 8. Monitor patient's hygiene practices 9. Float heels 10. Collaborate with interdisciplinary team and initiate plans and interventions as needed Outcome: Progressing Note: Evaluation of progress towards goal: Patient's skin integrity has been maintained, plan of care still ongoing with [facility] skin assessments. Problem: Urinary Incontinence Goal: Perineal skin integrity is maintained or improved Description: INTERVENTIONS 1. Assess genitourinary system, perineal skin, labs (urinalysis), and history of incontinence to include past management, aggravating, and alleviating factors 2. Keep skin clean and dry 3. Apply skin protectant 4. Develop skin care regimen 5. Provide privacy when changing patients incontinence device to maintain their dignity 6. Consider placing an indwelling catheter 7. Collaborate with interdisciplinary team and initiate plans and interventions as needed Outcome: Progressing Note: Evaluation of progress towards goal: Patient's perineal skin integrity has been maintained, plan of care still ongoing with [facility] skin assessments and proper hygiene care. [facility] [place] [facility] 12-18-2023 Plan of care note Problem: Pain Goal: Patient goal is pain score less than 4, able to rest, and participant in treatment plan as appropriate Description: INTERVENTIONS: 1. Encourage patient or legal termite control service representative to report early pain and ask for pain medicine when needed 2. Assess pain using appropriate pain scale and include the scale used when documenting 3. Administer analgesics based on type and severity of pain and evaluate response within appropriate time frame 4. Implement non-pharmacological measures as appropriate and evaluate response 5. Consider cultural and social influences on pain and pain management 6. Notify LIP if interventions ineffective or patient reports new pain 7. Monitor vital signs including pulse ox, end-tidal CO2 based on pain intervention 8. Reassess pain per policy 9. Teach patient or legal termite control service representative interventions for comforting Outcome: Progressing Note: Evaluation of progress towards goal: no pain reported [facility] 12-17-2023 Plan of care note Problem: Pain Goal: Patient goal is pain score less than 4, able to rest, and participant in treatment plan as appropriate Description: INTERVENTIONS: 1. Encourage patient or legal termite control service representative to report early pain and ask for pain medicine when needed 2. Assess pain using appropriate pain scale and include the scale used when documenting 3. Administer analgesics based on type and severity of pain and evaluate response within appropriate time frame 4. Implement non-pharmacological measures as appropriate and evaluate response 5. Consider cultural and social influences on pain and pain management 6. Notify LIP if interventions ineffective or patient reports new pain 7. Monitor vital signs including pulse ox, end-tidal CO2 based on pain intervention 8. Reassess pain per policy 9. Teach patient or legal termite control service representative interventions for comforting Note: Evaluation of progress towards goal: denies pain Problem: Safety Goal: Patient will be injury free during hospitalization Description: INTERVENTIONS: 1. Assess patient's risk for falls and implement fall prevention plan of care per policy 2. Provide and maintain a safe environment 3. Proper use of double Identifiers 4. Medication administration using the 5 rights 5. Hand hygiene 6. Specimens are labeled at the bedside 7. Instruct patient/ patient termite control service representative about use of safety devices 8. Include patient/ patient termite control service representative in decisions related to safety Note: Evaluation of progress towards goal: fall risk education, safety checks Problem: Knowledge Deficit Goal: Patient/patient termite control service representative demonstrates understanding of disease process, treatment plan, medications, and discharge instructions Description: INTERVENTIONS 1. Complete learning assessment and assess knowledge base 2. Provide teaching at level of understanding 3. Provide teaching via preferred learning method(s) Note: Evaluation of progress towards goal: medication education. Pt to go to SNF at discharge [facility] 12-17-2023 Nurse Note MAUREEN nurseElsa, monitoring pt while in Vascular. [facility] 12-17-2023 Nurse Note MAUREEN nurseElsa, monitoring pt while in Vascular. Multidisciplinary Rounds Attendees: Bedside RN, Unit clinical lead, Stroke RN, PT, OT, MINE INSPECTOR, and Care navigation Diet: Dietary Orders (From admission, onward) Start Ordered 12/14/23 1010 Adult diet Regular Texture; Consistent Carb 255 grams (2000 kcal) Diet effective now Question Answer Comment Diet Type: Regular Texture Carbohydrate Modifiers: Consistent Carb 255 grams (2000 kcal) 12/14/23 1010 PT OT MINE INSPECTOR: PT OT MINE INSPECTOR Orders (From admission, onward) Start Ordered 12/14/23 0616 Consult Occupational Therapy- eval and treat Once Question Answer Comment Does patient currently have an order for bedrest? No - (continue) Has nursing attempted to mobilize this patient? Yes- (continue) Reason for OT Skilled need for ADL intervention(s) 12/14/23 0615 12/14/23 0616 Consult Physical Therapy- eval and treat Once Question Answer Comment Does patient currently have an order for bedrest? No - (continue) Has nursing attempted to mobilize this patient? Yes- (continue) Reason for PT? Skilled need for functional mobility intervention(s) evaluate for positioning and/or splinting 12/14/23 0615 12/14/23 0616 Consult Speech Therapy- eval and treat Once Question: Reason for ST? Answer: Speech/Language/Cognition 12/14/23 0615 Activity: Up with assist Comments: Jacques: No external CVL: No Drips: None Intubated: No Family Issues: None Outstanding Tests/Procedures: Echo Barriers: None Discharge Plan: Needs PT/OT evaluation Pt. c/o 01/25 headache, shaking, moaning & stating hurts so bad, somebody help me . Pt. c/o sharp, throbbing pain in frontal region of head. Negative for nausea/vomiting. Vital signs stable, BP 120/59, HR 88, RR 16, SPO2 99. RN (the fiction writer) gave tylenol & called Trauma CRAFT DEMONSTRATOR. STAT CTB completed to r/o worsening brain bleed. Care continues. Multidisciplinary Rounds Attendees: Bedside RN and Care navigation Diet: Dietary Orders (From admission, onward) Start Ordered 12/14/23615 Adult diet NPO; Except medications Diet effective now Question Answer Comment Diet Type: NPO NPO Except: Except medications 12/14/23614 PT OT MINE INSPECTOR: PT OT MINE INSPECTOR Orders (From admission, onward) Start Ordered 12/14/23615 Consult Occupational Therapy- eval and treat Once Question Answer Comment Does patient currently have an order for bedrest? No - (continue) Has nursing attempted to mobilize this patient? Yes- (continue) Reason for OT Skilled need for ADL intervention(s) 12/14/23 0615 12/14/23615 Consult Physical Therapy- eval and treat Once Question Answer Comment Does patient currently have an order for bedrest? No - (continue) Has nursing attempted to mobilize this patient? Yes- (continue) Reason for PT? Skilled need for functional mobility intervention(s) evaluate for positioning and/or splinting 12/14/23 0615 12/14/23615 Consult Speech Therapy- eval and treat Once Question: Reason for ST? Answer: Speech/Language/Cognition 12/14/23614 Activity: Up with assist Comments: Jacques: No CVL: No Drips: None Intubated: No Family Issues: None Outstanding Tests/Procedures: None Barriers: None Discharge Plan: Needs PT/OT evaluation documented [facility] this encounter [facility] Plan of care note Problem: Pain Goal: Patient goal is pain score less than 4, able to rest, and participant in treatment plan as appropriate Description: INTERVENTIONS: 1. Encourage patient or legal termite control service representative to report early pain and ask for pain medicine when needed 2. Assess pain using appropriate pain scale and include the scale used when documenting 3. Administer analgesics based on type and severity of pain and evaluate response within appropriate time frame 4. Implement non-pharmacological measures as appropriate and evaluate response 5. Consider cultural and social influences on pain and pain management 6. Notify LIP if interventions ineffective or patient reports new pain 7. Monitor vital signs including pulse ox, end-tidal CO2 based on pain intervention 8. Reassess pain per policy 9. Teach patient or legal termite control service representative interventions for comforting Outcome: Progressing Note: Evaluation of progress towards goal: Pt able to verbalize needs for pain meds, PRN given for acute headache pain. Pain scale implemented & reassessed per policy. Vital signs monitored closely. Problem: Safety Goal: Patient will be injury free during hospitalization Description: INTERVENTIONS: 1. Assess patient's risk for falls and implement fall prevention plan of care per policy 2. Provide and maintain a safe environment 3. Proper use of double Identifiers 4. Medication administration using the 5 rights 5. Hand hygiene 6. Specimens are labeled at the bedside 7. Instruct patient/ patient termite control service representative about use of safety devices 8. Include patient/ patient termite control service representative in decisions related to safety Outcome: Progressing Note: Evaluation of progress towards goal: Fall risk is reassessed each shift, environment safely maintained.Safe patient handling equipment used. Pt remains fall & injury free. Pt is oriented x4, calls out appropriately using call light & is rounded on hourly. Bed/chair maintained in lowest & locked position. PT/OT continues to work with pt. Problem: Infection Goal: Absence of infection during hospitalization Description: Interventions: 1. Assess and monitor for signs and symptoms of infection 2. Monitor lab/diagnostic results 3. Monitor all insertion sites i.e., indwelling lines, tubes and drains 4. Monitor endotracheal (as able) and nasal secretions for changes in amount and color 5. Administer medications as ordered 6. Instruct and encourage patient and family to use good hand hygiene technique 7. Identify and instruct patient/patient termite control service representative in use of appropriate isolation precautions for identified infection/symptoms 8. Provide and discuss with patient/patient termite control service representative on educational MDRO sheet 9. Encourage and monitor nutritional status daily and consult wholesale loan processor if indicated 10. Implement neutropenic guidelines as needed 11. Review exposure to history of communicable disease and recent travel history on admission 12. Encourage annual influenza vaccine 13. Encourage pneumonia vaccine Outcome: Progressing Note: Evaluation of progress towards goal: All labs/viral signs monitored for signs of infection, meds administered as ordered. Vaccines reviewed on admission. Pt is afebrile with no signs/symptoms of infection. Continue to monitor. Problem: Knowledge Deficit Goal: Patient/patient termite control service representative demonstrates understanding of disease process, treatment plan, medications, and discharge instructions Description: INTERVENTIONS 1. Complete learning assessment and assess knowledge base 2. Provide teaching at level of understanding 3. Provide teaching via preferred learning method(s) Outcome: Progressing Note: Evaluation of progress towards goal: Education reviewed with patient, pt verbalizes understanding POC, education provided & discharge plan. Problem: Discharge Planning Goal: Discharge to post-acute care, other facility, or home with appropriate resources Description: Patient's goal is: INTERVENTIONS 1. Conduct assessment to determine patient/family and health care team treatment goals, and need for post-acute services based on payer coverage, community resources, and patient preferences, and barriers to discharge 2. Coordinate with Social work, Care Navigation, and Utilization Review to arrange appropriate level of services according to patient's needs based on patient preference and payer coverage in collaboration with the physician and health care team 3. Address psychosocial, clinical, and financial barriers to discharge as identified in assessment in conjunction with the patient/family and health care team 4. Consult appropriate ancillary services (i.e.. PT/OT/ST, etc) as needed 5. Communicate with and update the patient/family, physician, and health care team regarding progress on the discharge plan 6. Identify discharge learning needs (meds, wound care, etc). 7. Arrange for needed discharge transportation as appropriate Outcome: Progressing Note: Evaluation of progress towards goal: Treatment team assessed pt for discharge needs. PT/OT recommends SNF at discharge, referral sent to [facility], awaiting precert. Family updated. BUSINESS ANALYSIS ANALYST following, transport will be setup once authorization received. Problem: Moderate - High Risk Fall Score Description: Coleman Fall Score of =/> 25 or indicated by [facility] Rehab Assessment Goal: Patient should be free from fall Description: Interventions: 1. [place] to environment 2. Hourly rounds addressing the 4 P's (Pain, Positioning, Possessions, Potty) 3. Clear area of hazards (spills, clutter, electrical cords, unnecessary equipment) 4. Place equipment (bed & TV controls, call light, phone, urinal) within reach 5. Encourage patient to wear glasses and hearing aides as appropriate 6. Maintain bed in lowest position 7. Lock wheels on bed/wheelchair 8. Provide adequate lighting, including night light 9. Assess need for additional bedding, food/fluids, pain med's prior to sleep/routinely 10. Provide gripper slippers or personal non-skid footwear 11. Teach patient and patient termite control service representative to maintain environment for safety and engage in all aspects of fall prevention program 12. Remind patient to call for help before getting out of bed 13. Initiate bed/chair/exit alarms supportive devices as appropriate, (chair wedge, no-skid floor mat, raised edge mattress, hip protectors) 14. Locate patient bed assignment for optimal visualization 15. Evaluate and identify Safe Patient Handling Equipment needs 16. Provide supervision when out of bed or chair 17. Utilize gait belt as needed to assist with ambulation 18. Place adaptive equipment (cane, walker) within reach 19. Request patient termite control service representative bring adaptive equipment/mobility aids from home or obtain and provide as needed 20. Consult pharmacy regarding effects of med's affecting mobility, cognition, and alternatives 21. Obtain physician order for PT if risk factors associated with mobility are present 22. Obtain physician order for OT as appropriate 23. Utilize diversional activities 24. Educate patient and patient termite control service representative how to maintain a safe environment during visitation times (notify nurse prior to leaving bedside) 25. Consider appropriateness of medical or non-neuropsychology medical consultant 26. Set up voiding schedule as appropriate (every 2 hours) Outcome: Progressing Note: Evaluation of progress towards goal: Fall risk is reassessed each shift, environment safely maintained.Safe patient handling equipment used. Pt remains fall & injury free. Pt is oriented x4, calls out appropriately using call light & is rounded on hourly. Bed/chair maintained in lowest & locked position. PT/OT continues to work with pt. Problem: Potential for Compromised Skin Integrity Goal: Skin integrity is maintained or improved Description: Patient's goal is: INTERVENTIONS 1. Perform initial skin assessment on admission and as needed 2. Turn patient every 2 hours and PRN 3. Relieve pressure to bony prominences 4. Avoid shearing 5. Keep skin clean and dry 6. Alternate a full bath with partial baths for elderly 7. Apply lotion/moisturizer on skin 8. Monitor patient's hygiene practices 9. Float heels 10. Collaborate with interdisciplinary team and initiate plans and interventions as needed Outcome: Progressing Note: Evaluation of progress towards goal: Skin assessment on admission & each shift. Pt skin is intact with no open areas or breakdown present. Able to reposition self. Continue to monitor Goal: Patient's nutritional intake is adequate Description: Patient's goal is: INTERVENTIONS 1. Assess and monitor food intake and supplements, patient food preferences, nausea, vomiting, labs, oral cavity (gums, teeth, tongue, mucosa), proper denture fit, and cultural beliefs 2. Monitor for signs of hypoglycemia and hyperglycemia 3. Collaborate with interdisciplinary team and initiate plan and interventions as ordered 4. Monitor patient's weight 5. Assist patient with meals/food selection 6. Assist patient with eating 7. Allow adequate time for meals 8. Provide pleasant environment during mealtime 9. Increase social contact during mealtimes 10. Plan activities to conserve energy 11. Encourage/perform oral hygiene as appropriate 12. Encourage patient to take dietary supplement as ordered 13. Collaborate with clinical wholesale loan processor 14. Include patient/ patient's termite control service representative in decisions related to nutrition Outcome: Progressing Note: Evaluation of progress towards goal: Pt on regular diet with poor appetite. Encouragement given Problem: Urinary Incontinence Goal: Perineal skin integrity is maintained or improved Description: INTERVENTIONS 1. Assess genitourinary system, perineal skin, labs (urinalysis), and history of incontinence to include past management, aggravating, and alleviating factors 2. Keep skin clean and dry 3. Apply skin protectant 4. Develop skin care regimen 5. Provide privacy when changing patients incontinence device to maintain their dignity 6. Consider placing an indwelling catheter 7. Collaborate with interdisciplinary team and initiate plans and interventions as needed Outcome: Progressing Note: Evaluation of progress towards goal: Skin assessment on admission & each shift. Pt skin is intact with no open areas or breakdown present. Able to reposition self. Continue to monitor [facility] [place] [facility] 12-17-2023 Plan of care note Problem: Pain Goal: Patient goal is pain score less than 4, able to rest, and participant in treatment plan as appropriate Description: INTERVENTIONS: 1. Encourage patient or legal termite control service representative to report early pain and ask for pain medicine when needed 2. Assess pain using appropriate pain scale and include the scale used when documenting 3. Administer analgesics based on type and severity of pain and evaluate response within appropriate time frame 4. Implement non-pharmacological measures as appropriate and evaluate response 5. Consider cultural and social influences on pain and pain management 6. Notify LIP if interventions ineffective or patient reports new pain 7. Monitor vital signs including pulse ox, end-tidal CO2 based on pain intervention 8. Reassess pain per policy 9. Teach patient or legal termite control service representative interventions for comforting Outcome: Progressing Note: Evaluation of progress towards goal: denies pain Problem: Safety Goal: Patient will be injury free during hospitalization Description: INTERVENTIONS: 1. Assess patient's risk for falls and implement fall prevention plan of care per policy 2. Provide and maintain a safe environment 3. Proper use of double Identifiers 4. Medication administration using the 5 rights 5. Hand hygiene 6. Specimens are labeled at the bedside 7. Instruct patient/ patient termite control service representative about use of safety devices 8. Include patient/ patient termite control service representative in decisions related to safety Outcome: Progressing Note: Evaluation of progress towards goal: bed alarm Problem: Infection Goal: Absence of infection during hospitalization Description: Interventions: 1. Assess and monitor for signs and symptoms of infection 2. Monitor lab/diagnostic results 3. Monitor all insertion sites i.e., indwelling lines, tubes and drains 4. Monitor endotracheal (as able) and nasal secretions for changes in amount and color 5. Administer medications as ordered 6. Instruct and encourage patient and family to use good hand hygiene technique 7. Identify and instruct patient/patient termite control service representative in use of appropriate isolation precautions for identified infection/symptoms 8. Provide and discuss with patient/patient termite control service representative on educational MDRO sheet 9. Encourage and monitor nutritional status daily and consult wholesale loan processor if indicated 10. Implement neutropenic guidelines as needed 11. Review exposure to history of communicable disease and recent travel history on admission 12. Encourage annual influenza vaccine 13. Encourage pneumonia vaccine Outcome: Progressing Note: Evaluation of progress towards goal: Problem: Moderate - High Risk Fall Score Description: Coleman Fall Score of =/> 25 or indicated by [facility] Rehab Assessment Goal: Patient should be free from fall Description: Interventions: 1. [place] to environment 2. Hourly rounds addressing the 4 P's (Pain, Positioning, Possessions, Potty) 3. Clear area of hazards (spills, clutter, electrical cords, unnecessary equipment) 4. Place equipment (bed & TV controls, call light, phone, urinal) within reach 5. Encourage patient to wear glasses and hearing aides as appropriate 6. Maintain bed in lowest position 7. Lock wheels on bed/wheelchair 8. Provide adequate lighting, including night light 9. Assess need for additional bedding, food/fluids, pain med's prior to sleep/routinely 10. Provide gripper slippers or personal non-skid footwear 11. Teach patient and patient termite control service representative to maintain environment for safety and engage in all aspects of fall prevention program 12. Remind patient to call for help before getting out of bed 13. Initiate bed/chair/exit alarms supportive devices as appropriate, (chair wedge, no-skid floor mat, raised edge mattress, hip protectors) 14. Locate patient bed assignment for optimal visualization 15. Evaluate and identify Safe Patient Handling Equipment needs 16. Provide supervision when out of bed or chair 17. Utilize gait belt as needed to assist with ambulation 18. Place adaptive equipment (cane, walker) within reach 19. Request patient termite control service representative bring adaptive equipment/mobility aids from home or obtain and provide as needed 20. Consult pharmacy regarding effects of med's affecting mobility, cognition, and alternatives 21. Obtain physician order for PT if risk factors associated with mobility are present 22. Obtain physician order for OT as appropriate 23. Utilize diversional activities 24. Educate patient and patient termite control service representative how to maintain a safe environment during visitation times (notify nurse prior to leaving bedside) 25. Consider appropriateness of medical or non-neuropsychology medical consultant 26. Set up voiding schedule as appropriate (every 2 hours) Outcome: Progressing Note: Evaluation of progress towards goal: fall risk education [employer] [facility] 12-16-2023 Plan of care note Problem: Pain Goal: Patient goal is pain score less than 4, able to rest, and participant in treatment plan as appropriate Description: INTERVENTIONS: 1. Encourage patient or legal termite control service representative to report early pain and ask for pain medicine when needed 2. Assess pain using appropriate pain scale and include the scale used when documenting 3. Administer analgesics based on type and severity of pain and evaluate response within appropriate time frame 4. Implement non-pharmacological measures as appropriate and evaluate response 5. Consider cultural and social influences on pain and pain management 6. Notify LIP if interventions ineffective or patient reports new pain 7. Monitor vital signs including pulse ox, end-tidal CO2 based on pain intervention 8. Reassess pain per policy 9. Teach patient or legal termite control service representative interventions for comforting Outcome: Progressing Note: Evaluation of progress towards goal: Problem: Safety Goal: Patient will be injury free during hospitalization Description: INTERVENTIONS: 1. Assess patient's risk for falls and implement fall prevention plan of care per policy 2. Provide and maintain a safe environment 3. Proper use of double Identifiers 4. Medication administration using the 5 rights 5. Hand hygiene 6. Specimens are labeled at the bedside 7. Instruct patient/ patient termite control service representative about use of safety devices 8. Include patient/ patient termite control service representative in decisions related to safety Outcome: Progressing Note: Evaluation of progress towards goal: Problem: Infection Goal: Absence of infection during hospitalization Description: Interventions: 1. Assess and monitor for signs and symptoms of infection 2. Monitor lab/diagnostic results 3. Monitor all insertion sites i.e., indwelling lines, tubes and drains 4. Monitor endotracheal (as able) and nasal secretions for changes in amount and color 5. Administer medications as ordered 6. Instruct and encourage patient and family to use good hand hygiene technique 7. Identify and instruct patient/patient termite control service representative in use of appropriate isolation precautions for identified infection/symptoms 8. Provide and discuss with patient/patient termite control service representative on educational MDRO sheet 9. Encourage and monitor nutritional status daily and consult wholesale loan processor if indicated 10. Implement neutropenic guidelines as needed 11. Review exposure to history of communicable disease and recent travel history on admission 12. Encourage annual influenza vaccine 13. Encourage pneumonia vaccine Outcome: Progressing Note: Evaluation of progress towards goal: Problem: Knowledge Deficit Goal: Patient/patient termite control service representative demonstrates understanding of disease process, treatment plan, medications, and discharge instructions Description: INTERVENTIONS 1. Complete learning assessment and assess knowledge base 2. Provide teaching at level of understanding 3. Provide teaching via preferred learning method(s) Outcome: Progressing Note: Evaluation of progress towards goal: Problem: Discharge Planning Goal: Discharge to post-acute care, other facility, or home with appropriate resources Description: Patient's goal is: INTERVENTIONS 1. Conduct assessment to determine patient/family and health care team treatment goals, and need for post-acute services based on payer coverage, community resources, and patient preferences, and barriers to discharge 2. Coordinate with Social work, Care Navigation, and Utilization Review to arrange appropriate level of services according to patient's needs based on patient preference and payer coverage in collaboration with the physician and health care team 3. Address psychosocial, clinical, and financial barriers to discharge as identified in assessment in conjunction with the patient/family and health care team 4. Consult appropriate ancillary services (i.e.. PT/OT/ST, etc) as needed 5. Communicate with and update the patient/family, physician, and health care team regarding progress on the discharge plan 6. Identify discharge learning needs (meds, wound care, etc). 7. Arrange for needed discharge transportation as appropriate Outcome: Progressing Note: Evaluation of progress towards goal: Problem: Moderate - High Risk Fall Score Description: Coleman Fall Score of =/> 25 or indicated by [facility] Re[facility] Assessment Goal: Patient should be free from fall Description: Interventions: 1. [place] to environment 2. Hourly rounds addressing the 4 P's (Pain, Positioning, Possessions, Potty) 3. Clear area of hazards (spills, clutter, electrical cords, unnecessary equipment) 4. Place equipment (bed & TV controls, call light, phone, urinal) within reach 5. Encourage patient to wear glasses and hearing aides as appropriate 6. Maintain bed in lowest position 7. Lock wheels on bed/wheelchair 8. Provide adequate lighting, including night light 9. Assess need for additional bedding, food/fluids, pain med's prior to sleep/routinely 10. Provide gripper slippers or personal non-skid footwear 11. Teach patient and patient termite control service representative to maintain environment for safety and engage in all aspects of fall prevention program 12. Remind patient to call for help before getting out of bed 13. Initiate bed/chair/exit alarms supportive devices as appropriate, (chair wedge, no-skid floor mat, raised edge mattress, hip protectors) 14. Locate patient bed assignment for optimal visualization 15. Evaluate and identify Safe Patient Handling Equipment needs 16. Provide supervision when out of bed or chair 17. Utilize gait belt as needed to assist with ambulation 18. Place adaptive equipment (cane, walker) within reach 19. Request patient termite control service representative bring adaptive equipment/mobility aids from home or obtain and provide as needed 20. Consult pharmacy regarding effects of med's affecting mobility, cognition, and alternatives 21. Obtain physician order for PT if risk factors associated with mobility are present 22. Obtain physician order for OT as appropriate 23. Utilize diversional activities 24. Educate patient and patient termite control service representative how to maintain a safe environment during visitation times (notify nurse prior to leaving bedside) 25. Consider appropriateness of medical or non-neuropsychology medical consultant 26. Set up voiding schedule as appropriate (every 2 hours) Outcome: Progressing Note: Evaluation of progress towards goal: Problem: Potential for Compromised Skin Integrity Goal: Skin integrity is maintained or improved Description: Patient's goal is: INTERVENTIONS 1. Perform initial skin assessment on admission and as needed 2. Turn patient every 2 hours and PRN 3. Relieve pressure to bony prominences 4. Avoid shearing 5. Keep skin clean and dry 6. Alternate a full bath with partial baths for elderly 7. Apply lotion/moisturizer on skin 8. Monitor patient's hygiene practices 9. Float heels 10. Collaborate with interdisciplinary team and initiate plans and interventions as needed Outcome: Progressing Note: Evaluation of progress towards goal: Goal: Patient's nutritional intake is adequate Description: Patient's goal is: INTERVENTIONS 1. Assess and monitor food intake and supplements, patient food preferences, nausea, vomiting, labs, oral cavity (gums, teeth, tongue, mucosa), proper denture fit, and cultural beliefs 2. Monitor for signs of hypoglycemia and hyperglycemia 3. Collaborate with interdisciplinary team and initiate plan and interventions as ordered 4. Monitor patient's weight 5. Assist patient with meals/food selection 6. Assist patient with eating 7. Allow adequate time for meals 8. Provide pleasant environment during mealtime 9. Increase social contact during mealtimes 10. Plan activities to conserve energy 11. Encourage/perform oral hygiene as appropriate 12. Encourage patient to take dietary supplement as ordered 13. Collaborate with clinical wholesale loan processor 14. Include patient/ patient's termite control service representative in decisions related to nutrition Outcome: Progressing Note: Evaluation of progress towards goal: Problem: Urinary Incontinence Goal: Perineal skin integrity is maintained or improved Description: INTERVENTIONS 1. Assess genitourinary system, perineal skin, labs (urinalysis), and history of incontinence to include past management, aggravating, and alleviating factors 2. Keep skin clean and dry 3. Apply skin protectant 4. Develop skin care regimen 5. Provide privacy when changing patients incontinence device to maintain their dignity 6. Consider placing an indwelling catheter 7. Collaborate with interdisciplinary team and initiate plans and interventions as needed Outcome: Progressing Note: Evaluation of progress towards goal: [facility] 12-16-2023 Progress note Formatting of t his note might be different from the original. DISCHARGE PLANNING NOTE Referral to [facility] (P# ; F# ) , [facility] (P#: ; F#: ) , [facility] [place] (P# [phone]; F# [phone]) [facility] 12-16-2023 Progress note Formatting of t his note is different from the original. Images from the original note were not included. DISCHARGE PLANNING NOTE Services Requested: Services Requested Discharge Disposition: SNF Does the patient need discharge transportation arranged?: Yes Transportation Arranged: Ambulance Visiting Physician/Provider: Jennifer Kc MD Initial DC Assessment Completed: Yes Patient Goals: Patient/Caregiver Goals Patient/Caregiver Goals: Shelter Care Skilled Nuring Care: Skilled Care (Short Term) Goals: Goals SNF (pt-stated) Evaluation of progress towards goal: Patient and family agree to SNF for short term rehab at discharge. Patient admitted for: Fall, SAH Patient discussed in discharge transition rounds: Per RN report : SNF choices, acceptance CN spoke with patient, spouse Arnold, daughter Jean and son Lazaro, at bedside, introduced self and explained role. Patinet not feeling well and closed her eyes for the discussion. Patient lives with spouse in a two story home with 2 steps to enter from the back door, bed/bathrooms on second floor with one flights of stairs. Spouse stated patient was independent with ADL's and patient was able to drive a limited amount prior to admission. Patient states that they currently have a cane, shower chair DME. Patient endorses no issue financially with being able to obtain medications or food. Patient states that they have working water, gas and electric. Patient's preferred pharmacy is [facility] in [place], [facility]. Per patient self report: Drug use: deny ETOH use: deny Smoking: deny PCP added to follow up provider list to receive summary of care at discharge. Based on readmission risk assessment, patient has risk score of 13 for readmission. The following arrangements have been made to help prevent readmission. D/C Plan: SNF . Spouse and daughter reviewed SNF list and provided CN with 3 choices: [facility] in [place], [facility], and the [facility] in [place]. [facility] tasked to send referral to the three SNF choices. Patient has traditional medicare and will need a 3 midnight stay, no precert needed . Material Control Supervisor will continue to follow for any discharge needs. - Nandini Brown RN 12/16/23 3:43 PM [facility] [place] 12-16-2023 Progress note Formatting of t his note is different from the original. Occupational Therapy Evaluation Discharge Recommendations OT Recommendations : Shelter Facility SNF/ECF Comments: patient would benefit from skilled OT to address ADL, balance, activity tolerance. Patient was independent with ADL's prior to admission. Patient is a fall risk. 6 Clicks: Daily Activity Putting on and taking off regular lower body clothing?: A lot Bathing (including washing, rinsing, drying)?: A lot Toileting, which includes using toilet, bedpan or urinal?: A lot Putting on and taking off regular upper body clothing?: A lot Taking care of personal grooming such as brushing teeth?: A lot Eating meals?: A little Scoring Daily Activity Raw Score: 13 CMS G Code Modifier: CL Occupational Profile Patient is a 83 year old female admitted with fall at home on 12-11-[address]23. Initial CT head: negative. Patient went to [place] and was kept for observation and was discharged home the next day. Family noted slurred speech and patient went back to hospital and was found to have SAH. Transfer to [facility]. CT head; small SAH in right precentral sulcus and right temporal lobe and medial left frontal SAH has resolved, scattered SAH, left temporal and superior cerebellum. Cardiology consult regarding possible syncope and plan for [facility]. Repeat CT brain: stable small SAH. Echo: normal. No neurosurgical intervention. Patient was able to ambulate independently prior to admission. Patient does her own ADL tasks. Patient does not drive much however, is able to drive. Patient is retired. See below for past medical and past surgical history. No past medical history on file. No past surgical history on file. Therapy Plan Need for skilled Occupational Therapy to address deficits in ADL independence and functional mobility due to a status decline resulting from fall at home. OT Treatment/Interventions: ADL retraining, Equipment eval/education, Bed mobility, Functional activities, Balance, Functional transfer training, Home management, Cognitive reorientation, Patient/family training, UE strengthening/ROM OT Frequency: 4-5days/week OT Duration: dec Assessment Visit RN Communication: Yes Medical Record Reviewed: Yes OT Type of Visit: Evaluation Precautions Activity: advance activity as tolerated per early mobility guidelines. Equipment: telemetry, walker, gait belt, IV and 2 liters oxygen. Telemetry/Employee Health Nurse: Yes Oxygen Used: 2 liters oxygen. Other: fall risk, decreased cognition, slow reaction time, lethargic. Pain Assessment Pain Assessment: No/denies pain Home Living Type of Home: House Home Layout: Two level, Bed/bath upstairs, 1/2 bath on main level Stairs to Enter: 2 into garage with grab bar on the right side. Stairs in Home: one flight to upstairs with right side rail. Hand Rails in Home: Right Bathroom Shower/Tub: Tub/shower unit Bathroom Toilet: Standard Bathroom Equipment: Shower chair Home Equipment: Cane Prior Function Lives With: Spouse (lives with Mikey.) Level of Mobility: Independent with ADLs and functional transfers or gait Homemaking Assistance: Independent Vocational: Retired Other: patient does not drive much. does not use a cane or walker, patient does her own ADL tasks and household tasks. cooks and does most of the driving. ADL / IADL Hand Dominance: Right Where Assessed: Supine, bed, Edge of bed, At toilet, Chair (patient left up in chair with call light in reach in family in room.) Eating Assistance: Setup Grooming Assistance: Mod assist Bathing/Showering Assistance: Mod assist Toilet/Commode Assistance: Mod assist UE Dressing Assistance: Mod assist LE Dressing Assistance: Mod assist Footwear Assistance: Mod assist Other: patient was able to ambualte into bathroom with walker and mod assist. Patient was able to transition at toilet with min assist. patient was required mod assist for lila care. Patient was able to transition from toilet with min assist. Patient was able to ambulate from bathroom to chair with mod verbal cues and min assist. patient is lethargic and slow to process information. High fall risk potential. Patient reuqired mod assist to open all containers on breakfast tray and min assist for feeding due to endurance. Home Management - IADL Other: patient was able to ambualte into bathroom with walker and mod assist. Patient was able to transition at toilet with min assist. patient was required mod assist for lila care. Patient was able to transition from toilet with min assist. Patient was able to ambulate from bathroom to chair with mod verbal cues and min assist. patient is lethargic and slow to process information. High fall risk potential. Patient reuqired mod assist to open all containers on breakfast tray and min assist for feeding due to endurance. Hearing / Speech / Vision Hearing: Bilateral hearing aid Speech: Other (Comment) (slow/deliberate/lethargic.) Current Vision: Wears glasses only for reading Cognition Overall Cognitive Status: Exceptions to Within Functional Limits Orientation Level: Other (Comment) (patient was able to recall her own address, Husbands name and her kids name.) Safety Judgment: Decreased awareness of need for safety Awareness of Errors: Decreased awareness of errors Insight of Deficits: Decreased awareness of deficits Problem Solving: Reduced Interfering Components: Processing speed, Working memory, Attention - divided, Attention - sustained, Motor planning, Hearing Other: patient was lethargic. Patient was able to answer situational questions with encouragement. Patient was slow to process one step commands however, was able to with repetition and prolonged time. Sensation Overall Sensation Status: Within Functional Limits Bed Mobility Supine to Sit: Verbal cues, Min assist Other: mod assist to scoot. Transfers Sit to Stand: Verbal cues, Min assist (min assist of two.) Stand to Sit: Min assist, Verbal cues Toilet Transfers: Min assist, Verbal cues Gait Gait Distance: initally mod assist to control walker and patient due to lethargy from bed to bathroom. patient was able to ambulate with walker from bathroom to chair with min assist and mod verbal prompts due to endurance. Limiting Factors to Gait: Cognition/difficulty following directions, Decreased safety, Fatigue Balance Sitting Balance: Static: Good (good-) Sitting Balance: Dynamic: Fair (fair+) Standing Balance: Static: Fair (fair-) Standing Balance: Dynamic: Fair (fair-) Other: with external support. RUE Assessment: (generalized weakness.) LUE Assessment: (generalized weakness) Plan Occupational Therapy Care Plan Occupational Therapy Care Plan (Active) Template: OT - Occupational Therapy Problem: Activity Tolerance Dates: Start: 12/16/23 Disciplines: OT Goal: Tolerate 30 minutes of activity WITH rest breaks Dates: Start: 12/16/23 Expected End: 01/15/24 Description: Goal Description: Disciplines: OT Problem: Bathing LB Dates: Start: 12/16/23 Disciplines: OT Goal: Patient will perform bathing LB with Stand By Assist Dates: Start: 12/16/23 Expected End: 01/15/24 Description: Goal Description: Disciplines: OT Problem: Bathing UB Dates: Start: 12/16/23 Disciplines: OT Goal: Patient will perform bathing UB with Set-Up Dates: Start: 12/16/23 Expected End: 01/15/24 Description: Goal Description: Disciplines: OT Problem: Bed Mobility Dates: Start: 12/16/23 Disciplines: OT Goal: Patient will perform bed mobility with Stand By Assist Dates: Start: 12/16/23 Expected End: 01/15/24 Description: Goal Description: Disciplines: OT Problem: Cognition Dates: Start: 12/16/23 Disciplines: OT Goal: Improve cognition Dates: Start: 12/16/23 Expected End: 01/15/24 Description: Patient will engage in cognitive tasks and will demonstrate increased response time, good safety and good problem solving. Disciplines: OT Problem: Dressing LB Dates: Start: 12/16/23 Disciplines: OT Goal: Patient will perform dressing LB with Modified [place] Dates: Start: 12/16/23 Expected End: 01/15/24 Description: Goal Description: Disciplines: OT Problem: Dressing UB Dates: Start: 12/16/23 Disciplines: OT Goal: Patient will perform dressing UB with Modified [place] Dates: Start: 12/16/23 Expected End: 01/15/24 Description: Goal Description: Disciplines: OT Problem: Functional Mobility Dates: Start: 12/16/23 Disciplines: OT Goal: Patient will perform functional mobility with Modified [place] Dates: Start: 12/16/23 Expected End: 01/15/24 Description: Goal Description: Disciplines: OT Problem: Grooming Dates: Start: 12/16/23 Disciplines: OT Goal: Patient will perform grooming with Stand By Assist Dates: Start: 12/16/23 Expected End: 01/15/24 Description: Goal Description: Disciplines: OT Problem: Home Management Dates: Start: 12/16/23 Disciplines: OT Goal: Patient will perform home management with Stand By Assist Dates: Start: 12/16/23 Expected End: 01/15/24 Description: Goal Description: Disciplines: OT Problem: Sitting Balance Dates: Start: 12/16/23 Disciplines: OT Goal: Improve balance to good Dates: Start: 12/16/23 Expected End: 01/15/24 Description: Good dynamic balance. Disciplines: OT Problem: Standing Balance Dates: Start: 12/16/23 Disciplines: OT Goal: Improve balance to good Dates: Start: 12/16/23 Expected End: 01/15/24 Description: Good dynamic balance. Disciplines: OT Problem: Strength Dates: Start: 12/16/23 Disciplines: OT Goal: Improve strength Dates: Start: 12/16/23 Expected End: 01/15/24 Description: Improve bilateral upper extremity strength to functional during ADL tasks. Disciplines: OT Problem: Toilet Transfers Dates: Start: 12/16/23 Disciplines: OT Goal: Patient will perform toilet transfers with Modified [place] Dates: Start: 12/16/23 Expected End: 01/15/24 Description: Goal Description: Disciplines: OT Problem: Toileting Dates: Start: 12/16/23 Disciplines: OT Goal: Patient will perform toileting with Stand By Assist Dates: Start: 12/16/23 Expected End: 01/15/24 Description: Goal Description: Disciplines: OT Problem: Transfers Dates: Start: 12/16/23 Disciplines: OT Goal: Patient will perform transfers with Stand By Assist Dates: Start: 12/16/23 Expected End: 01/15/24 Description: Goal Description: Disciplines: OT Occupational Therapy Care Plan (Resolved) There are no resolved problems. Principal Problem: ICH (intracerebral hemorrhage) ([facility]) [facility] 12-16-2023 Progress note Formatting of t his note is different from the original. Physical Therapy Evaluation Discharge Recommendations PT Recommendations: Shelter Facility SNF/ECF Comments: due to decline in functional mobility with decreased activity tolerance, balance and safety. Pt needs assist for all mobility at this time. 6 Clicks: Basic Mobility Turning from your back to your side while in a flat bed without using bed rails?: A little Moving from lying on your back to sitting on side of flat bed without using bed rails?: A little Moving to and from bed to a chair (including w/c)?: A lot Standing up from a chair using your arms (e.g. w/c or bedside chair)?: A lot To walk in hospital room?: A little Climbing 3-5 steps with a railing?: Total Scoring 6 Clicks: Basic Mobility Raw Score: 14 CMS G Code Modifier: CK Pt is an 83 yo female with hx of CAD/CABG, HTN, DM, chronic vertigo and recent COVID infection. Pt admit from [facility]. Pt was seen at hospital on 12/10 s/p fall at home, pt amnestic to events but found her. Initial CT head (-) and pt kept for observation overnight and discharged to home next day. Family noted slurred speech and returned to hospital where concern for SAH was noted on imaging and pt transferred to [facility]. CT head - small SAH in R precentral sulcus and scattered SAH L temporal and superior cerebellum. Hold ASA due to development of new small bleeds. Cardiology consulted re: possible syncope - Echo WNL Repeat CT brain - stable small SAH No neurosurgical intervention and no activity restrictions. Pt with c/o headache and given Dilaudid last night per RN which may be contributing to her drowsiness this date. No past medical history on file. No past surgical history on file. Therapy Plan Need for skilled Physical Therapy to address deficits in functional mobility due to a status decline resulting from admit for recent fall with scattered subarachnoid hemorrhages. Recommend SNF at discharge as pt not at level safe for discharge to home. PT Treatment/Interventions: Functional transfer training, Patient/family training, Equipment eval/education, Balance, LE strengthening/ROM, Bed mobility, Gait training PT Frequency: 4-5days/week PT Duration: 01/10/24 Patient Response to Treatment: Tolerated evaluation without adverse reaction, Slow progress, decreased activity tolerance, Slow progress, cognitive deficits (Simultaneous filing. User may not have seen previous data.) Assessment Patient Assessment Therapy Problem List: Decreased balance, Decreased cognition, Decreased endurance, Decreased mobility, Decreased safe judgement during ADL, Decreased LE strength (Simultaneous filing. User may not have seen previous data.) Patient Response to Treatment: Tolerated evaluation without adverse reaction, Slow progress, decreased activity tolerance, Slow progress, cognitive deficits (Simultaneous filing. User may not have seen previous data.) Mood/Affect: Flat (Simultaneous filing. User may not have seen previous data.) Rehab Prognosis: Good, With continued PT status post acute discharge (Simultaneous filing. User may not have seen previous data.) Visit RN Communication: Yes Medical Record Reviewed: Yes PT Type of Visit: Evaluation Precautions Activity: act as tolerated, regular diet Equipment: gait belt, wheeled walker, IV, chair alarm Telemetry/Employee Health Nurse: Yes Oxygen Used: room air Other: Fall risk, flat affect, slow to respond Pain Assessment Pain Assessment: No/denies pain Home Living Type of Home: House Home Layout: Two level, Bed/bath upstairs, 1/2 bath on main level, Stairs to enter with rails Stairs to Enter: 2 from back door Hand Rails: Right (grab bar) Stairs in Home: flight to bed/bath Hand Rails in Home: Right Bathroom Shower/Tub: Tub/shower unit Bathroom Toilet: Standard Bathroom Equipment: Shower chair Home Equipment: Cane Other : 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 Dtr reports recently decline in balance and mobility Prior Function Lives With: Spouse (Gene who is in good health) Receives Help From: Family (local dtr Jean and son Lazaro in [place]) Level of Mobility: Independent with ADLs and functional transfers or gait Homemaking Assistance: Independent Other: Pt indep with mobility and ADLs, shares household tasks with and limited driving. ADL / IADL Hand Dominance: Right Hearing / Speech / Vision Hearing: Hard of hearing/hearing concerns, Bilateral hearing aid (HAs not at hospital) Speech: Delayed responses, Slurred Current Vision: Wears glasses only for reading Cognition Overall Cognitive Status: Exceptions to Within Functional Limits Arousal/Alertness: Delayed responses to stimuli Attention Span: Attends with cues to redirect Memory: Decreased recall of biographical information, Decreased recall of recent events, Decreased short term memory Orientation Level: Oriented to person, Oriented to month, Oriented to age, Disoriented to place (Disoriented to year) Following Commands: Follows one step commands with increased time, Follows one step commands with repetition Safety Judgment: Decreased awareness of need for safety Awareness of Errors: Decreased awareness of errors Insight of Deficits: Decreased awareness of deficits Problem Solving: Reduced Interfering Components: Processing speed, Working memory, Attention - divided, Attention - sustained, Motor planning, Hearing Other: Pt drowsy but easily awakens. Needs encouragement and increased time to complete tasks. Sensation Overall Sensation Status: Within Functional Limits Bed Mobility Supine to Sit: Min assist, Visual cues Other: with HOB elevated. Pt needs physical and verbal prompting to move towards EOB. Pt needed mod A to scoot to edge. Pt remained up in chair after session with chair alarm intact Transfers Sit to Stand: Min assist (2 assist) Stand to Sit: Min assist, Verbal cues Bed to Chair: Min assist (2 assist) Toilet Transfers: Min assist (2 assist) Other: with RW support. Cues for hand placement and encouragement Gait Base of Support: Within Functional Limits Pattern: Decreased josselin, R Decreased foot clearance, L Decreased foot clearance Gait Assistance: Min assist, Verbal cues (2 assist) Assistive Device: Rolling walker Gait Distance: Pt amb 12 feet x 2 in room with RW Limiting Factors to Gait: Fatigue, Weakness, Cognition/difficulty following directions Other: Pt needs assist for balance and to guide walker safely. Balance Sitting Balance: Static: Good Sitting Balance: Dynamic: Fair Standing Balance: Static: (Fair-) Standing Balance: Dynamic: (Fair-) Other: with walker support in standing RLE Assessment: (4/5 throughout - generalized weakness) LLE Assessment: (4/5 throughout - generalized weakness) Activity Tolerance Endurance: Tolerates <30 minutes activity WITHOUT vital sign changes (Simultaneous filing. User may not have seen previous data.) Other: SpO2 stable on room air (Simultaneous filing. User may not have seen previous data.) Plan Physical Therapy Care Plan Physical Therapy Care Plan (Active) Template: PT - Physical Therapy Problem: Activity Tolerance Dates: Start: 12/16/23 Disciplines: PT Goal: Tolerate > 30 minutes of activity WITH rest breaks Dates: Start: 12/16/23 Expected End: 01/10/24 Description: Goal Description: For seated and standing activities for improved mobility Disciplines: PT Problem: Bed Mobility Dates: Start: 12/16/23 Disciplines: PT Goal: Patient will perform bed mobility with Supervision Dates: Start: 12/16/23 Expected End: 01/10/24 Description: Goal Description: Disciplines: PT Problem: Gait Dates: Start: 12/16/23 Disciplines: PT Goal: Patient will perform gait with Stand By Assist Dates: Start: 12/16/23 Expected End: 01/10/24 Description: 150 feet with RW support for safe mobility in home Goal Description: Disciplines: PT Problem: Standing Balance Dates: Start: 12/16/23 Disciplines: PT Goal: Improve balance to good Dates: Start: 12/16/23 Expected End: 01/10/24 Description: Static Dynamic with UE support as needed for safe mobility, decreased fall risk Disciplines: PT Problem: Transfers Dates: Start: 12/16/23 Disciplines: PT Goal: Patient will perform transfers with Supervision Dates: Start: 12/16/23 Expected End: 01/10/24 Description: Goal Description: with RW support Disciplines: PT Physical Therapy Care Plan (Resolved) There are no resolved problems. Principal Problem: ICH (intracerebral hemorrhage) ([facility]) [facility] 12-16-2023 Plan of care note Problem: Pain Goal: Patient goal is pain score less than 4, able to rest, and participant in treatment plan as appropriate Description: INTERVENTIONS: 1. Encourage patient or legal termite control service representative to report early pain and ask for pain medicine when needed 2. Assess pain using appropriate pain scale and include the scale used when documenting 3. Administer analgesics based on type and severity of pain and evaluate response within appropriate time frame 4. Implement non-pharmacological measures as appropriate and evaluate response 5. Consider cultural and social influences on pain and pain management 6. Notify LIP if interventions ineffective or patient reports new pain 7. Monitor vital signs including pulse ox, end-tidal CO2 based on pain intervention 8. Reassess pain per policy 9. Teach patient or legal termite control service representative interventions for comforting Outcome: Progressing Note: Evaluation of progress towards goal: pain control Problem: Safety Goal: Patient will be injury free during hospitalization Description: INTERVENTIONS: 1. Assess patient's risk for falls and implement fall prevention plan of care per policy 2. Provide and maintain a safe environment 3. Proper use of double Identifiers 4. Medication administration using the 5 rights 5. Hand hygiene 6. Specimens are labeled at the bedside 7. Instruct patient/ patient termite control service representative about use of safety devices 8. Include patient/ patient termite control service representative in decisions related to safety Outcome: Progressing Note: Evaluation of progress towards goal: fall risk Problem: Infection Goal: Absence of infection during hospitalization Description: Interventions: 1. Assess and monitor for signs and symptoms of infection 2. Monitor lab/diagnostic results 3. Monitor all insertion sites i.e., indwelling lines, tubes and drains 4. Monitor endotracheal (as able) and nasal secretions for changes in amount and color 5. Administer medications as ordered 6. Instruct and encourage patient and family to use good hand hygiene technique 7. Identify and instruct patient/patient termite control service representative in use of appropriate isolation precautions for identified infection/symptoms 8. Provide and discuss with patient/patient termite control service representative on educational MDRO sheet 9. Encourage and monitor nutritional status daily and consult wholesale loan processor if indicated 10. Implement neutropenic guidelines as needed 11. Review exposure to history of communicable disease and recent travel history on admission 12. Encourage annual influenza vaccine 13. Encourage pneumonia vaccine Outcome: Progressing Note: Evaluation of progress towards goal: [facility] 12-15-2023 Plan of care note Brief Neurosurgery Note Repeat CT imaging remains stable. There are no neurosurgical interventions warranted. Continue Keppra x 7 days for seizure prophylaxis. SBP < 140. No activity restrictions from NS standpoint. Ok for chemical DVT prophylaxis. Neurosurgery will sign off at this time. No formal follow up warranted. Please call with any further needs. Jodie KRAFT [facility] Contact via patient touch 12/15/23 1:08 PM SWAPNIL Herrera 12/15/23 [id number] [facility] 12-15-2023 Plan of care note Problem: Pain Goal: Patient goal is pain score less than 4, able to rest, and participant in treatment plan as appropriate Description: INTERVENTIONS: 1. Encourage patient or legal termite control service representative to report early pain and ask for pain medicine when needed 2. Assess pain using appropriate pain scale and include the scale used when documenting 3. Administer analgesics based on type and severity of pain and evaluate response within appropriate time frame 4. Implement non-pharmacological measures as appropriate and evaluate response 5. Consider cultural and social influences on pain and pain management 6. Notify LIP if interventions ineffective or patient reports new pain 7. Monitor vital signs including pulse ox, end-tidal CO2 based on pain intervention 8. Reassess pain per policy 9. Teach patient or legal termite control service representative interventions for comforting Outcome: Progressing Note: Evaluation of progress towards goal: pain controlled with prn meds [facility] 12-15-2023 Plan of care note Problem: Pain Goal: Patient goal is pain score less than 4, able to rest, and participant in treatment plan as appropriate Description: INTERVENTIONS: 1. Encourage patient or legal termite control service representative to report early pain and ask for pain medicine when needed 2. Assess pain using appropriate pain scale and include the scale used when documenting 3. Administer analgesics based on type and severity of pain and evaluate response within appropriate time frame 4. Implement non-pharmacological measures as appropriate and evaluate response 5. Consider cultural and social influences on pain and pain management 6. Notify LIP if interventions ineffective or patient reports new pain 7. Monitor vital signs including pulse ox, end-tidal CO2 based on pain intervention 8. Reassess pain per policy 9. Teach patient or legal termite control service representative interventions for comforting Outcome: Progressing Note: Evaluation of progress towards goal: PRN medications controlling pain during this shift. Problem: Safety Goal: Patient will be injury free during hospitalization Description: INTERVENTIONS: 1. Assess patient's risk for falls and implement fall prevention plan of care per policy 2. Provide and maintain a safe environment 3. Proper use of double Identifiers 4. Medication administration using the 5 rights 5. Hand hygiene 6. Specimens are labeled at the bedside 7. Instruct patient/ patient termite control service representative about use of safety devices 8. Include patient/ patient termite control service representative in decisions related to safety Outcome: Progressing Note: Evaluation of progress towards goal: No falls or injuries during this shift. Bed is locked, in low position, and bedside rails are up x3. Will continue to monitor patient frequently and maintain a safe environment. Problem: Infection Goal: Absence of infection during hospitalization Description: Interventions: 1. Assess and monitor for signs and symptoms of infection 2. Monitor lab/diagnostic results 3. Monitor all insertion sites i.e., indwelling lines, tubes and drains 4. Monitor endotracheal (as able) and nasal secretions for changes in amount and color 5. Administer medications as ordered 6. Instruct and encourage patient and family to use good hand hygiene technique 7. Identify and instruct patient/patient termite control service representative in use of appropriate isolation precautions for identified infection/symptoms 8. Provide and discuss with patient/patient termite control service representative on educational MDRO sheet 9. Encourage and monitor nutritional status daily and consult wholesale loan processor if indicated 10. Implement neutropenic guidelines as needed 11. Review exposure to history of communicable disease and recent travel history on admission 12. Encourage annual influenza vaccine 13. Encourage pneumonia vaccine Outcome: Progressing Note: Evaluation of progress towards goal: Patient afebrile at this time and vital signs stable. No signs or symptoms of infection. Problem: Knowledge Deficit Goal: Patient/patient termite control service representative demonstrates understanding of disease process, treatment plan, medications, and discharge instructions Description: INTERVENTIONS 1. Complete learning assessment and assess knowledge base 2. Provide teaching at level of understanding 3. Provide teaching via preferred learning method(s) Outcome: Progressing Note: Evaluation of progress towards goal: Assessment of best learning methods and knowledge base completed.Teaching provided at patient's and patient's family's level of understanding, and via patient's and patient's family's preferred learning methods when applicable. Problem: Discharge Planning Goal: Discharge to post-acute care, other facility, or home with appropriate resources Description: Patient's goal is: INTERVENTIONS 1. Conduct assessment to determine patient/family and health care team treatment goals, and need for post-acute services based on payer coverage, community resources, and patient preferences, and barriers to discharge 2. Coordinate with Social work, Care Navigation, and Utilization Review to arrange appropriate level of services according to patient's needs based on patient preference and payer coverage in collaboration with the physician and health care team 3. Address psychosocial, clinical, and financial barriers to discharge as identified in assessment in conjunction with the patient/family and health care team 4. Consult appropriate ancillary services (i.e.. PT/OT/ST, etc) as needed 5. Communicate with and update the patient/family, physician, and health care team regarding progress on the discharge plan 6. Identify discharge learning needs (meds, wound care, etc). 7. Arrange for needed discharge transportation as appropriate Outcome: Progressing Note: Evaluation of progress towards goal: Patient does not qualify for discharge at this time. Discharge planning is readdressed every shift by providers and primary nurse. Problem: Moderate - High Risk Fall Score Description: Coleman Fall Score of =/> 25 [facility] Goal: Patient should be free from fall Description: Interventions: 1. [place] to environment 2. Hourly rounds addressing the 4 P's (Pain, Positioning, Possessions, Potty) 3. Clear area of hazards (spills, clutter, electrical cords, unnecessary equipment) 4. Place equipment (bed & TV controls, call light, phone, urinal) within reach 5. Encourage patient to wear glasses and hearing aides as appropriate 6. Maintain bed in lowest position 7. Lock wheels on bed/wheelchair 8. Provide adequate lighting, including night light 9. Assess need for additional bedding, food/fluids, pain med's prior to sleep/routinely 10. Provide gripper slippers or personal non-skid footwear 11. Teach patient and patient termite control service representative to maintain environment for safety and engage in all aspects of fall prevention program 12. Remind patient to call for help before getting out of bed 13. Initiate bed/chair/exit alarms supportive devices as appropriate, (chair wedge, no-skid floor mat, raised edge mattress, hip protectors) 14. Locate patient bed assignment for optimal visualization 15. Evaluate and identify Safe Patient Handling Equipment needs 16. Provide supervision when out of bed or chair 17. Utilize gait belt as needed to assist with ambulation 18. Place adaptive equipment (cane, walker) within reach 19. Request patient termite control service representative bring adaptive equipment/mobility aids from home or obtain and provide as needed 20. Consult pharmacy regarding effects of med's affecting mobility, cognition, and alternatives 21. Obtain physician order for PT if risk factors associated with mobility are present 22. Obtain physician order for OT as appropriate 23. Utilize diversional activities 24. Educate patient and patient termite control service representative how to maintain a safe environment during visitation times (notify nurse prior to leaving bedside) 25. Consider appropriateness of medical or non-neuropsychology medical consultant 26. Set up voiding schedule as appropriate (every 2 hours) Outcome: Progressing Note: Evaluation of progress towards goal: No falls or injuries during this shift. Bed is locked, in low position, and bedside rails are up x3. Will continue to monitor patient frequently and maintain a safe environment. Problem: Potential for Compromised Skin Integrity Goal: Skin integrity is maintained or improved Description: Patient's goal is: INTERVENTIONS 1. Perform initial skin assessment on admission and as needed 2. Turn patient every 2 hours and PRN 3. Relieve pressure to bony prominences 4. Avoid shearing 5. Keep skin clean and dry 6. Alternate a full bath with partial baths for elderly 7. Apply lotion/moisturizer on skin 8. Monitor patient's hygiene practices 9. Float heels 10. Collaborate with interdisciplinary team and initiate plans and interventions as needed Outcome: Progressing Note: Evaluation of progress towards goal: Skin assessment performed during shift, patient turning per protocol and PRN, patient's skin is kept clean and dry. Goal: Patient's nutritional intake is adequate Description: Patient's goal is: INTERVENTIONS 1. Assess and monitor food intake and supplements, patient food preferences, nausea, vomiting, labs, oral cavity (gums, teeth, tongue, mucosa), proper denture fit, and cultural beliefs 2. Monitor for signs of hypoglycemia and hyperglycemia 3. Collaborate with interdisciplinary team and initiate plan and interventions as ordered 4. Monitor patient's weight 5. Assist patient with meals/food selection 6. Assist patient with eating 7. Allow adequate time for meals 8. Provide pleasant environment during mealtime 9. Increase social contact during mealtimes 10. Plan activities to conserve energy 11. Encourage/perform oral hygiene as appropriate 12. Encourage patient to take dietary supplement as ordered 13. Collaborate with clinical wholesale loan processor 14. Include patient/ patient's termite control service representative in decisions related to nutrition Outcome: Progressing Note: Evaluation of progress towards goal: Nutritional intake is being assessed and monitored. Patient is currently tolerating their ordered diet. Problem: Urinary Incontinence Goal: Perineal skin integrity is maintained or improved Description: INTERVENTIONS 1. Assess genitourinary system, perineal skin, labs (urinalysis), and history of incontinence to include past management, aggravating, and alleviating factors 2. Keep skin clean and dry 3. Apply skin protectant 4. Develop skin care regimen 5. Provide privacy when changing patients incontinence device to maintain their dignity 6. Consider placing an indwelling catheter 7. Collaborate with interdisciplinary team and initiate plans and interventions as needed Outcome: Progressing Note: Evaluation of progress towards goal: Skin assessment performed during shift, patient turning per protocol and PRN, patient's skin is kept clean and dry. [facility] 12-15-2023 Nurse Note Multidisciplinary Rounds Attendees: Bedside RN, Unit clinical lead, Stroke RN, PT, OT, MINE INSPECTOR, and Care navigation Diet: Dietary Orders (From admission, onward) Start Ordered 12/14/23 1010 Adult diet Regular Texture; Consistent Carb 255 grams (2000 kcal) Diet effective now Question Answer Comment Diet Type: Regular Texture Carbohydrate Modifiers: Consistent Carb 255 grams (2000 kcal) 12/14/23 1010 PT OT MINE INSPECTOR: PT OT MINE INSPECTOR Orders (From admission, onward) Start Ordered 12/14/23 0616 Consult Occupational Therapy- eval and treat Once Question Answer Comment Does patient currently have an order for bedrest? No - (continue) Has nursing attempted to mobilize this patient? Yes- (continue) Reason for OT Skilled need for ADL intervention(s) 12/14/23 0615 12/14/23 0616 Consult Physical Therapy- eval and treat Once Question Answer Comment Does patient currently have an order for bedrest? No - (continue) Has nursing attempted to mobilize this patient? Yes- (continue) Reason for PT? Skilled need for functional mobility intervention(s) evaluate for positioning and/or splinting 12/14/23 0615 12/14/23 0616 Consult Speech Therapy- eval and treat Once Question: Reason for ST? Answer: Speech/Language/Cognition 12/14/23 0615 Activity: Up with assist Comments: Jacques: No external CVL: No Drips: None Intubated: No Family Issues: None Outstanding Tests/Procedures: Echo Barriers: None Discharge Plan: Needs PT/OT evaluation [facility] 12-14-2023 Nurse Note Pt. c/o 10/10 headache, shaking, moaning & stating hurts so bad, somebody help me . Pt. c/o sharp, throbbing pain in frontal region of head. Negative for nausea/vomiting. Vital signs stable, BP 120/59, HR 88, RR 16, SPO2 99. RN (the fiction writer) gave tylenol & called Trauma CRAFT DEMONSTRATOR. STAT CTB completed to r/o worsening brain bleed. Care continues. [facility]14[facility]2023 Plan of care note Problem: Pain Goal: Patient goal is pain score less than 4, able to rest, and participant in treatment plan as appropriate Description: INTERVENTIONS: 1. Encourage patient or legal termite control service representative to report early pain and ask for pain medicine when needed 2. Assess pain using appropriate pain scale and include the scale used when documenting 3. Administer analgesics based on type and severity of pain and evaluate response within appropriate time frame 4. Implement non-pharmacological measures as appropriate and evaluate response 5. Consider cultural and social influences on pain and pain management 6. Notify LIP if interventions ineffective or patient reports new pain 7. Monitor vital signs including pulse ox, end-tidal CO2 based on pain intervention 8. Reassess pain per policy 9. Teach patient or legal termite control service representative interventions for comforting Outcome: Progressing Note: Evaluation of progress towards goal: Patient currently denies pain. Patient encouraged to communicate with staff if pain occurs.Care changes. Problem: Safety Goal: Patient will be injury free during hospitalization Description: INTERVENTIONS: 1. Assess patient's risk for falls and implement fall prevention plan of care per policy 2. Provide and maintain a safe environment 3. Proper use of double Identifiers 4. Medication administration using the 5 rights 5. Hand hygiene 6. Specimens are labeled at the bedside 7. Instruct patient/ patient termite control service representative about use of safety devices 8. Include patient/ patient termite control service representative in decisions related to safety Outcome: Progressing Note: Evaluation of progress towards goal: Patient safety maintained, call light in reach, area clear of hazards, hourly rounding continued, bed locked in lowest position, alarm on as applicable, non skid socks on, safety educated completed with patient/family, no injuries noted at this time. Problem: Infection Goal: Absence of infection during hospitalization Description: Interventions: 1. Assess and monitor for signs and symptoms of infection 2. Monitor lab/diagnostic results 3. Monitor all insertion sites i.e., indwelling lines, tubes and drains 4. Monitor endotracheal (as able) and nasal secretions for changes in amount and color 5. Administer medications as ordered 6. Instruct and encourage patient and family to use good hand hygiene technique 7. Identify and instruct patient/patient termite control service representative in use of appropriate isolation precautions for identified infection/symptoms 8. Provide and discuss with patient/patient termite control service representative on educational MDRO sheet 9. Encourage and monitor nutritional status daily and consult wholesale loan processor if indicated 10. Implement neutropenic guidelines as needed 11. Review exposure to history of communicable disease and recent travel history on admission 12. Encourage annual influenza vaccine 13. Encourage pneumonia vaccine Outcome: Progressing Note: Evaluation of progress towards goal: Patient not currently receiving any treatment for infection. Care continues, along with collaboration with care team in regards to abnormal labs. Problem: Knowledge Deficit Goal: Patient/patient termite control service representative demonstrates understanding of disease process, treatment plan, medications, and discharge instructions Description: INTERVENTIONS 1. Complete learning assessment and assess knowledge base 2. Provide teaching at level of understanding 3. Provide teaching via preferred learning method(s) Outcome: Progressing Note: Evaluation of progress towards goal: Care plan discussed & goals for shift set with patient input appreciated. All questions answered. Problem: Discharge Planning Goal: Discharge to post-acute care, other facility, or home with appropriate resources Description: Patient's goal is: INTERVENTIONS 1. Conduct assessment to determine patient/family and health care team treatment goals, and need for post-acute services based on payer coverage, community resources, and patient preferences, and barriers to discharge 2. Coordinate with Social work, Care Navigation, and Utilization Review to arrange appropriate level of services according to patient's needs based on patient preference and payer coverage in collaboration with the physician and health care team 3. Address psychosocial, clinical, and financial barriers to discharge as identified in assessment in conjunction with the patient/family and health care team 4. Consult appropriate ancillary services (i.e.. PT/OT/ST, etc) as needed 5. Communicate with and update the patient/family, physician, and health care team regarding progress on the discharge plan 6. Identify discharge learning needs (meds, wound care, etc). 7. Arrange for needed discharge transportation as appropriate Outcome: Progressing Note: Evaluation of progress towards goal: Discharge planning in progress with appropriate multidisciplinary teams. Problem: Moderate - High Risk Fall Score Description: Coleman Fall Score of =/> 25 or indicated by [facility] Assessment Goal: Patient should be free from fall Description: Interventions: 1. [place] to environment 2. Hourly rounds addressing the 4 P's (Pain, Positioning, Possessions, Potty) 3. Clear area of hazards (spills, clutter, electrical cords, unnecessary equipment) 4. Place equipment (bed & TV controls, call light, phone, urinal) within reach 5. Encourage patient to wear glasses and hearing aides as appropriate 6. Maintain bed in lowest position 7. Lock wheels on bed/wheelchair 8. Provide adequate lighting, including night light 9. Assess need for additional bedding, food/fluids, pain med's prior to sleep/routinely 10. Provide gripper slippers or personal non-skid footwear 11. Teach patient and patient termite control service representative to maintain environment for safety and engage in all aspects of fall prevention program 12. Remind patient to call for help before getting out of bed 13. Initiate bed/chair/exit alarms supportive devices as appropriate, (chair wedge, no-skid floor mat, raised edge mattress, hip protectors) 14. Locate patient bed assignment for optimal visualization 15. Evaluate and identify Safe Patient Handling Equipment needs 16. Provide supervision when out of bed or chair 17. Utilize gait belt as needed to assist with ambulation 18. Place adaptive equipment (cane, walker) within reach 19. Request patient termite control service representative bring adaptive equipment/mobility aids from home or obtain and provide as needed 20. Consult pharmacy regarding effects of med's affecting mobility, cognition, and alternatives 21. Obtain physician order for PT if risk factors associated with mobility are present 22. Obtain physician order for OT as appropriate 23. Utilize diversional activities 24. Educate patient and patient termite control service representative how to maintain a safe environment during visitation times (notify nurse prior to leaving bedside) 25. Consider appropriateness of medical or non-neuropsychology medical consultant 26. Set up voiding schedule as appropriate (every 2 hours) Outcome: Progressing Note: Evaluation of progress towards goal: Fall risk assessment preformed and safety measures in place. Education given to family/patient. Care continues. Problem: Potential for Compromised Skin Integrity Goal: Skin integrity is maintained or improved Description: Patient's goal is: INTERVENTIONS 1. Perform initial skin assessment on admission and as needed 2. Turn patient every 2 hours and PRN 3. Relieve pressure to bony prominences 4. Avoid shearing 5. Keep skin clean and dry 6. Alternate a full bath with partial baths for elderly 7. Apply lotion/moisturizer on skin 8. Monitor patient's hygiene practices 9. Float heels 10. Collaborate with interdisciplinary team and initiate plans and interventions as needed Outcome: Progressing Note: Evaluation of progress towards goal: Patient repositioned Q2 hrs. Monitor for s/s of skin breakdown and treat/communicate with treatment team as needed. Goal: Patient's nutritional intake is adequate Description: Patient's goal is: INTERVENTIONS 1. Assess and monitor food intake and supplements, patient food preferences, nausea, vomiting, labs, oral cavity (gums, teeth, tongue, mucosa), proper denture fit, and cultural beliefs 2. Monitor for signs of hypoglycemia and hyperglycemia 3. Collaborate with interdisciplinary team and initiate plan and interventions as ordered 4. Monitor patient's weight 5. Assist patient with meals/food selection 6. Assist patient with eating 7. Allow adequate time for meals 8. Provide pleasant environment during mealtime 9. Increase social contact during mealtimes 10. Plan activities to conserve energy 11. Encourage/perform oral hygiene as appropriate 12. Encourage patient to take dietary supplement as ordered 13. Collaborate with clinical wholesale loan processor 14. Include patient/ patient's termite control service representative in decisions related to nutrition Outcome: Progressing Note: Evaluation of progress towards goal: Pt nutritional needs monitored and addressed as ordered by physician. Dietary recommendations appreciated as ordered. Problem: Urinary Incontinence Goal: Perineal skin integrity is maintained or improved Description: INTERVENTIONS 1. Assess genitourinary system, perineal skin, labs (urinalysis), and history of incontinence to include past management, aggravating, and alleviating factors 2. Keep skin clean and dry 3. Apply skin protectant 4. Develop skin care regimen 5. Provide privacy when changing patients incontinence device to maintain their dignity 6. Consider placing an indwelling catheter 7. Collaborate with interdisciplinary team and initiate plans and interventions as needed Outcome: Progressing Note: Evaluation of progress towards goal: Perineal skin integrity remains clean, dry, and intact with no redness or s/s of breakdown. Skin care regimen considered as needed. Collaboration with interdisciplinary teams considered as needed. [facility] [place] 12-14-2023 Plan of care note Problem: Pain Goal: Patient goal is pain score less than 4, able to rest, and participant in treatment plan as appropriate Description: INTERVENTIONS: 1. Encourage patient or legal termite control service representative to report early pain and ask for pain medicine when needed 2. Assess pain using appropriate pain scale and include the scale used when documenting 3. Administer analgesics based on type and severity of pain and evaluate response within appropriate time frame 4. Implement non-pharmacological measures as appropriate and evaluate response 5. Consider cultural and social influences on pain and pain management 6. Notify LIP if interventions ineffective or patient reports new pain 7. Monitor vital signs including pulse ox, end-tidal CO2 based on pain intervention 8. Reassess pain per policy 9. Teach patient or legal termite control service representative interventions for comforting Outcome: Progressing Note: Evaluation of progress towards goal: acetaminophen as needed;headache continues Problem: Safety Goal: Patient will be injury free during hospitalization Description: INTERVENTIONS: 1. Assess patient's risk for falls and implement fall prevention plan of care per policy 2. Provide and maintain a safe environment 3. Proper use of double Identifiers 4. Medication administration using the 5 rights 5. Hand hygiene 6. Specimens are labeled at the bedside 7. Instruct patient/ patient termite control service representative about use of safety devices 8. Include patient/ patient termite control service representative in decisions related to safety Outcome: Progressing Note: Evaluation of progress towards goal: no injury noted Problem: Infection Goal: Absence of infection during hospitalization Description: Interventions: 1. Assess and monitor for signs and symptoms of infection 2. Monitor lab/diagnostic results 3. Monitor all insertion sites i.e., indwelling lines, tubes and drains 4. Monitor endotracheal (as able) and nasal secretions for changes in amount and color 5. Administer medications as ordered 6. Instruct and encourage patient and family to use good hand hygiene technique 7. Identify and instruct patient/patient termite control service representative in use of appropriate isolation precautions for identified infection/symptoms 8. Provide and discuss with patient/patient termite control service representative on educational MDRO sheet 9. Encourage and monitor nutritional status daily and consult wholesale loan processor if indicated 10. Implement neutropenic guidelines as needed 11. Review exposure to history of communicable disease and recent travel history on admission 12. Encourage annual influenza vaccine 13. Encourage pneumonia vaccine Outcome: Progressing Note: Evaluation of progress towards goal: daily CBC monitored Problem: Knowledge Deficit Goal: Patient/patient termite control service representative demonstrates understanding of disease process, treatment plan, medications, and discharge instructions Description: INTERVENTIONS 1. Complete learning assessment and assess knowledge base 2. Provide teaching at level of understanding 3. Provide teaching via preferred learning method(s) Outcome: Progressing Note: Evaluation of progress towards goal: family at bedside is updated on plan of care by trauma,cardiology and neurosurgery Problem: Discharge Planning Goal: Discharge to post-acute care, other facility, or home with appropriate resources Description: Patient's goal is: INTERVENTIONS 1. Conduct assessment to determine patient/family and health care team treatment goals, and need for post-acute services based on payer coverage, community resources, and patient preferences, and barriers to discharge 2. Coordinate with Social work, Care Navigation, and Utilization Review to arrange appropriate level of services according to patient's needs based on patient preference and payer coverage in collaboration with the physician and health care team 3. Address psychosocial, clinical, and financial barriers to discharge as identified in assessment in conjunction with the patient/family and health care team 4. Consult appropriate ancillary services (i.e.. PT/OT/ST, etc) as needed 5. Communicate with and update the patient/family, physician, and health care team regarding progress on the discharge plan 6. Identify discharge learning needs (meds, wound care, etc). 7. Arrange for needed discharge transportation as appropriate Outcome: Progressing Note: Evaluation of progress towards goal: ongoing needs assessed;appropriate consults in place Problem: Moderate - High Risk Fall Score Description: Coleman Fall Score of =/> 25 or indicated by [facility] Assessment Goal: Patient should be free from fall Description: Interventions: 1. [place] to environment 2. Hourly rounds addressing the 4 P's (Pain, Positioning, Possessions, Potty) 3. Clear area of hazards (spills, clutter, electrical cords, unnecessary equipment) 4. Place equipment (bed & TV controls, call light, phone, urinal) within reach 5. Encourage patient to wear glasses and hearing aides as appropriate 6. Maintain bed in lowest position 7. Lock wheels on bed/wheelchair 8. Provide adequate lighting, including night light 9. Assess need for additional bedding, food/fluids, pain med's prior to sleep/routinely 10. Provide gripper slippers or personal non-skid footwear 11. Teach patient and patient termite control service representative to maintain environment for safety and engage in all aspects of fall prevention program 12. Remind patient to call for help before getting out of bed 13. Initiate bed/chair/exit alarms supportive devices as appropriate, (chair wedge, no-skid floor mat, raised edge mattress, hip protectors) 14. Locate patient bed assignment for optimal visualization 15. Evaluate and identify Safe Patient Handling Equipment needs 16. Provide supervision when out of bed or chair 17. Utilize gait belt as needed to assist with ambulation 18. Place adaptive equipment (cane, walker) within reach 19. Request patient termite control service representative bring adaptive equipment/mobility aids from home or obtain and provide as needed 20. Consult pharmacy regarding effects of med's affecting mobility, cognition, and alternatives 21. Obtain physician order for PT if risk factors associated with mobility are present 22. Obtain physician order for OT as appropriate 23. Utilize diversional activities 24. Educate patient and patient termite control service representative how to maintain a safe environment during visitation times (notify nurse prior to leaving bedside) 25. Consider appropriateness of medical or non-neuropsychology medical consultant 26. Set up voiding schedule as appropriate (every 2 hours) Outcome: Progressing Note: Evaluation of progress towards goal: no falls,call light within reach [facility] Consult note Associated Order (s): IP CONSULT TO CARDIOLOGY Images from the original note were not included. [facility] [address] [place] [address] HISTORY & PHYSICAL / CONSULT NOTE Kelin Rosenberg PCP: NO PCP, NO PCP Date of Admission: 12/14/2023 Date of Consultation: 12/14/2023 2:17 PM Consult for syncope SUBJECTIVE History of Present Illness: Kelin Rosenberg is a 83 y.o. 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 Reportedly she was doing well however 3 days ago she had a fall, unwitnessed, her heard her fall and found her laying down alert, breathing but not able to talk and called EMS. She was admitted initially to [place] [place], where imaging revealed subarachnoid hemorrhage, otherwise hemodynamically stable, sinus rhythm. She got a loop recorder implanted there and was transferred to [facility] neuro ICU. Cardiology was consulted for concern for syncope. Patient does not remember any of the events around the fall and does not know if she passed out or not. She denies any prior similar episode, pain, shortness of breath, palpitations, presyncope, lightheadedness. Per family she had been in her usual state of health except likely she has had more gait unsteadiness. No recent medication changes. No prior TTE on file. Previous Medical History: No past medical history on file. Previous Surgical History: No past surgical history on file. Allergies: Allergies Allergen Reactions Penicillins Rash Hospital Meds: Current Facility-Administered Medications Medication Dose Route Frequency Provider Last Rate Last Admin acetaminophen (TYLENOL EXTRA STRENGTH) tablet 1,000 mg 1,000 mg oral Q6H PRN KIRBY NorrisRETAIL DIRECTOR 1,000 mg at 12/14/23 1321 atorvastatin (LIPITOR) tablet 10 mg 10 mg oral Nightly VIKI Manuel calcium carbonate (OS-GEOVANNA) 500 mg elemental (1,250 mg) tablet 500 mg 500 mg oral BID with meals VKII Manuel cholecalciferol (vitamin D3) (VITAMIN D3) capsule 5,000 Units 5,000 Units oral Daily VIKI Manuel dextrose (GLUTOSE) 40 % gel 15 g 15 g oral PRN VIKI Manuel dextrose 5 % (D5W) infusion 100 mL/hr intravenous Continuous PRN VIKI Manuel dextrose 50 % in water (D50W) 50% solution 25 mL 25 mL intravenous PRN VIKI Manuel docusate sodium (COLACE) capsule 100 mg 100 mg oral BID VIKI Manuel glucagon HCL injection 1 mg 1 mg intramuscular PRN VIKI Manuel hydrALAZINE (APRESOLINE) injection 10 mg 10 mg intravenous Q6H PRN SWAPNIL Norris 10 mg at 12/14/23 0631 insulin lispro (HumaLOG) injection 2-10 Units 2-10 Units subcutaneous TID with meals VIKI Manuel insulin lispro (HumaLOG) injection 2-8 Units 2-8 Units subcutaneous Nightly VIKI Manuel labetaloL (NORMODYNE,TRANDATE) injection 10 mg 10 mg intravenous Q4H PRN SWAPNIL Norris levETIRAcetam (KEPPRA) IVPB 500 mg/100 mL in iso-osmotic sodium chloride (5 mg/mL premix) 500 mg intravenous Q12H NAZ SWAPNIL Norris Or levETIRAcetam (KEPPRA) tablet 500 mg 500 mg oral Q12H [facility] Chio Ayoub APRN-JAMESON metoprolol succinate XL (TOPROL XL) 24 hr tablet 50 mg 50 mg oral Nightly VIKI Manuel ondansetron (PF) (ZOFRAN) injection 4 mg 4 mg intravenous Q6H PRN Chio Ayoub APRN-RETAIL DIRECTOR 4 mg at 12/14/23 0832 potassium bicarbonate (K-LYTE) 25 MEQ disintegrating tablet 25 mEq 25 mEq oral BID VIKI Manuel sennosides-docusate sodium (SENOKOT-S) 8.6-50 mg 2 tablet 2 tablet oral Nightly Chio Ayoub APRN-JAMESON sodium chloride 0.9 % flush 3 mL 3 mL intravenous PRN Chio Ayoub, AGRIBUSINESS PROFESSOR-JAMESON sodium chloride 0.9 % flush 3 mL 3 mL intravenous Q12H [facility] Chio Ayoub APRN-JAMESON 3 mL at 12/14/23 1119 sodium chloride 0.9 % infusion 10 mL/hr intravenous Continuous PRN VIKI Manuel 10 mL/hr at 12/14/23 0802 10 mL/hr at 12/14/23 0802 sodium chloride 0.9 % infusion 75 mL/hr intravenous Continuous VIKI Manuel 75 mL/hr at 12/14/23 1114 75 mL/hr at 12/14/23 1114 Home Meds: Prior to Admission medications Medication Sig Start Date End Date Taking? Authorizing Provider cholecalciferol, vitamin D3, (VITAMIN D3) 5,000 units capsule Take 1 capsule (5,000 Units total) by mouth in the morning. 01/13/23 Yes Not In System Ref Prov gabapentin (NEURONTIN) 300 mg capsule Take 1 capsule (300 mg total) by mouth in the morning. 08/10/23 Yes Not In System Ref Prov metoprolol succinate XL (TOPROL XL) 50 mg 24 hr tablet Take 1 tablet (50 mg total) by mouth nightly. 06/07/23 Yes Not In System Ref Prov aspirin 81 mg Take 2 tablets (162 mg total) by mouth in the morning. Not In System Ref Prov calcium carbonate (OS-GEOVANNA) 600 mg elemental (1,500 mg) tablet Take 1 tablet (600 mg total) by mouth in the morning and 1 tablet (600 mg total) in the evening. Take with meals. Not In System Ref Prov docusate sodium (COLACE) 100 mg capsule Take 1 capsule (100 mg total) by mouth in the morning and 1 capsule (100 mg total) before bedtime. Not In System Ref Prov metFORMIN (GLUCOPHAGE) 500 mg tablet Take 2 tablets (1,000 mg total) by mouth daily with breakfast. Not In System Ref Prov metFORMIN (GLUCOPHAGE) 500 mg tablet Take 1 tablet (500 mg total) by mouth nightly. With evening meal take 1 tablet. Not In System Ref Prov potassium bicarbonate (EFFER-K) 25 MEQ disintegrating tablet Take 1 tablet (25 mEq total) by mouth in the morning and 1 tablet (25 mEq total) before bedtime. Not In System Ref Prov ramipriL (ALTACE) 2.5 mg capsule Take 1 tablet by mouth in the morning. Not In System Ref Prov simvastatin (ZOCOR) 20 mg tablet Take 1 tablet (20 mg total) by mouth nightly. Not In System Ref Prov Social History: TOBACCO: reports that she has never smoked. She has never used smokeless tobacco. ETOH: reports no history of alcohol use. DRUGS: reports no history of drug use. OCCUPATION: Family History: No family history on file. Review of Systems: Constitutional: there has been no unanticipated weight loss, no change in energy level, sleep pattern, or activity level. Cardiovascular: See HPI Respiratory: No cough or wheezing, no sputum production, no hematemesis. Gastrointestinal: No abdominal pain, appetite loss, blood in stools, no change in bowel or bladder habits. Genitourinary: No dysuria, trouble voiding, or hematuria Musculoskeletal: No gait disturbance, weakness or joint complaints Neurological: No headache, diplopia, change in muscle strength, numbness or tingling. Unsteady gait recently OBJECTIVE LAST LABS: CBC: Results from last 7 days Lab Units 12/14/23 0445 WBC X10E9/L 7.3 HEMOGLOBIN g/dL 11.3* HEMATOCRIT % 31.6* MCV fL 89 PLATELETS X10E9/L 223 BMP: Results from last 7 days Lab Units 12/14/23 0445 SODIUM mmol/L 141 POTASSIUM mmol/L 4.0 CHLORIDE mmol/L 107 CO2 mmol/L 28 BUN mg/dL 18 CREATININE mg/dL 0.63 CALCIUM mg/dL 9.4 PT/INR: Results from last 7 days Lab Units 12/14/23 0445 PROTIME sec 10.2 INR 0.9 APTT: MAG: D Dimer: Troponin I ProBNP Lipid Panel: No results found for: CHOL , TRIG , HDL , CHOLHDLR Liver Panel: No results found for: ALB HgA1C: No results found for: HGBA1C ABG: RADIOLOGY: X-ray chest 1 view Result Date: 12/14/2023 Clinical History: Trauma. Portable Upright chest: 12/14/2023 Comparison: None Findings: A single portable view of the chest was obtained. Is mild cardiac prominence. Pulmonary vessels are not enlarged. No pneumothorax or focal infiltrate is evident. There is no visible pleural effusion. IMPRESSION: No acute infiltrate. Finalized by Vel Herrmann MD on 12/14/2023 5:25 AM PHYSICAL EXAM Admission Weight: Weight: 65.9 kg (145 lb 4.5 oz) No intake/output data recorded. Weight change: Wt Readings from Last 3 Encounters: 12/14/23 65.9 kg (145 lb 4.5 oz) Vitals: Vitals: 12/14/23 1300 12/14/23 1321 12/14/23 1330 12/14/23 1400 BP: 141/54 (!) 125/94 170/62 Pulse: 62 67 64 56 Resp: 22 17 15 17 Temp: 36.9 C (98.4 F) TempSrc: Oral SpO2: 98% 99% 100% 97% Weight: Height: Admit Weight Weight: 65.9 kg (145 lb 4.5 oz) Last 3 Weights Last 3 Weight Readings 12/14/23 0615 Weight: 65.9 kg (145 lb 4.5 oz) Body mass index is 25.74 kg/m . INTAKE/OUTPUT No intake/output data recorded. Intake/Output Summary (Last 24 hours) at 12/14/2023 1417 Last data filed at 12/14/2023 1119 Gross per 24 hour Intake 6 ml Output 0 ml Net 6 ml General appearance: Alert oriented and cooperative, in no acute distress Skin: cool and dry to touch Neck: No JVD, no carotid bruit, neck supple, trachea midline Lungs: Clear to ausculation bilaterally, no use of accessory muscles. Heart:: RRR with normal S1 and S2 , no murmurs and no gallops. Abdomen: Soft, non-tender, bowel sounds normal Extremities: No edema ASSESSMENT Fall, concern for syncopal event vs mechanical Subarachnoid hemorrhage CAD s/p CABGx4 14 y ago, per chart review stress test was unremarkable in 05/2023, following with [facility] cardiology No prior TTE on file Interventricular conduction delay on EKG PLAN - follow-up transthoracic echo - continuous telemetry, noted that was placed at [facility] following initial event - follow up troponin - cardiology will continue to follow Johnson Degroot MD This note was completed using a voice cash reconciliation specialist system. Every effort was made to ensure accuracy. However, inadvertent computerized cash reconciliation specialist errors may be present. Associated attestation - Jimmie Burkett MD - 12/14/2023 2:46 PM EDT I have personally performed a face to face diagnostic evaluation on this patient. I have reviewed the note authored by the resident physician and agree with the history of present illness, past medical history, surgical history, social history, family history and review of systems.. I have reviewed current medications, and lab values. My findings are below. 83-year-old female history of CABG 14 years ago 4 vessel, no revascularization since then presents with unwitnessed fall heard a thud She fell at least on her side if not the back of her head Found to have subarachnoid hemorrhage She recalls nothing of the events She is wobbly on her feet with a history of gait instability they were planning on getting a walker We are consulted for possible syncope She was at outside hospital and had a loop recorder implanted and then was transferred here Physical Exam Vital Signs: BP 144/64 Pulse (!) 47 Temp 36.9 C (98.4 F) (Oral) Resp 19 Ht 160 cm (5' 3 ) Wt 65.9 kg (145 lb 4.5 oz) SpO2 97% BMI 25.74 kg/m General appearance: Alert oriented and cooperative. In no acute distress Skin: Warm and Dry to touch Neck: No JVD, No carotid bruit. Neck supple, trachea midline Lungs: Clear to ausculation bilaterally, no use of accessory muscles. Heart:: regular rate and rhythm with normal S1 and S2 Abdomen: Soft, non-tender. Bowel sounds normal. Extremities: No edema. Intraventricular conduction delay on EKG Mildly prolonged QT No recent medication changes Impression 1. Possible syncope, has a subarachnoid hemorrhage. Which may have caused her fall. Or this was arrhythmic versus mechanical with her history of gait instability. Agree with continuing loop monitoring, this can be continued as an outpatient and she can follow up with her general production troubleshooter at [facility]. In the meantime we will get an echo which will give us a reasonable idea of the likelihood for ventricular arrhythmias but ultimately will be nondiagnostic. As far as ischemia concerned we are not suspicious of this as she has no baseline chest pain or tightness, we have sent a troponin. We will continue monitoring on telemetry [employer] [place] Work Phone: 12-14-2023 Progress note Formatting of t his note is different from the original. Physical Therapy (P) CANCEL - Deferred (Hold at this time per RNDuyen - pt not feeling well.) Will check back as appropriate. [facility] 12-14-2023 Progress note Formatting of t his note is different from the original. Occupational Therapy CANCEL - Deferred (spoke with ROSIE Geller, patient is not having the best day, would like therapy to hold today) [employer] [place] Work Phone: 12-14-2023 Consult note Associated Order (s): IP CONSULT TO NEUROSURGERY Images from the original note were not included. [facility] [address] [place] [address], [address] [place] [address] * NEUROSURGERY CONSULT NOTE DATE:12/14/2023 PATIENT'S NAME: Kelin Rosenberg PATIENT'S PATIENT'S : 1940 NEUROSURGERY ATTENDING: Dr. Schmitt REASON FOR CONSULT Subarachnoid hemorrhage HISTORY OF PRESENT ILLNESS Kelin Rosenberg is a 83 y.o. White or female with PMH significant for HTN, HLD, and DM II who presented from OSH after she was found to have small subarachnoid hemorrhage on CT imaging. Patient initially fell this past Tuesday in the living room at home. She is amnestic to the events. Patient's at bedside reports he was in the other room when he heard a thud and found the patient on the floor. He called EMS for further assistance. Patient was taken to [facility] where initially CT of the brain was read negative. Patient was admitted for observation overnight and was sent home the next morning. Family later noticed she had slurred speech and subarachnoid hemorrhage was found on imaging studies. Patient was transferred to [facility] as a trauma consult and Neurosurgery has been consulted for further evaluation. Patient is on ASA 81 mg at home. On exam, patient is awake and alert. She reports headache and nausea and has had lack of appetite for several days. She denies any dizziness or lightheadedness or changes to vision. ALLERGIES Allergies Allergen Reactions Penicillins Rash MEDICATIONS Current Facility-Administered Medications: acetaminophen (TYLENOL EXTRA STRENGTH) tablet 1,000 mg, 1,000 mg, oral, Q6H PRN, SWAPNIL Norris, 1,000 mg at 12/14/23 0631 dextrose (GLUTOSE) 40 % gel 15 g, 15 g, oral, PRN, VIKI Manuel dextrose 5 % (D5W) infusion, 100 mL/hr, intravenous, Continuous PRN, VIKI Manuel dextrose 50 % in water (D50W) 50% solution 25 mL, 25 mL, intravenous, PRN, VIKI Manuel glucagon HCL injection 1 mg, 1 mg, intramuscular, PRN, VIKI Manuel hydrALAZINE (APRESOLINE) injection 10 mg, 10 mg, intravenous, Q6H PRN, SWAPNIL Norris, 10 mg at 12/14/23 0631 insulin lispro (HumaLOG) injection 2-10 Units, 2-10 Units, subcutaneous, TID with meals, VIKI Manuel insulin lispro (HumaLOG) injection 2-8 Units, 2-8 Units, subcutaneous, Nightly, VIKI Manuel labetaloL (NORMODYNE,TRANDATE) injection 10 mg, 10 mg, intravenous, Q4H PRN, Chio Ayoub AGRIBUSINESS PROFESSOR-JAMESON levETIRAcetam (KEPPRA) IVPB 500 mg/100 mL in iso-osmotic sodium chloride (5 mg/mL premix), 500 mg, intravenous, Q12H NAZ OR levETIRAcetam (KEPPRA) tablet 500 mg, 500 mg, oral, Q12H NAZ, Chio Ayoub AGRIBUSINESS PROFESSOR-JAMESON ondansetron (PF) (ZOFRAN) injection 4 mg, 4 mg, intravenous, Q6H PRN, Chio Ayoub APRN-JAMESON, 4 mg at 12/14/23 0832 sennosides-docusate sodium (SENOKOT-S) 8.6-50 mg 2 tablet, 2 tablet, oral, Nightly, Chio Ayoub, AGRIBUSINESS PROFESSOR-RETAIL DIRECTOR sodium chloride 0.9 % flush 3 mL, 3 mL, intravenous, PRN, Chio Ayoub, AGRIBUSINESS PROFESSOR-RETAIL DIRECTOR sodium chloride 0.9 % flush 3 mL, 3 mL, intravenous, Q12H NAZ, Chio Ayoub, AGRIBUSINESS PROFESSOR-RETAIL DIRECTOR sodium chloride 0.9 % infusion, 10 mL/hr, intravenous, Continuous PRN, VIKI Manuel, Last Rate: 10 mL/hr at 12/14/23 0802, 10 mL/hr at 12/14/23 0802 sodium chloride 0.9 % infusion, 75 mL/hr, intravenous, Continuous, VIKI Manuel PAST MEDICAL AND SURGICAL HISTORY No past medical history on file. No past surgical history on file. FAMILY HISTORY No family history on file. REVIEW OF SYSTEMS A 14 point review of systems was negative other than that documented in the HPI. PHYSICAL EXAMINATION Temp: [36.7 C (98.1 F)-37 C (98.6 F)] 36.7 C (98.1 F) Pulse: [56-73] 64 Resp: [12-29] 16 BP: (119-178)/(49-87) 119/49 SpO2: [94 %-100 %] 97 % O2 Device: None (Room air) The patient is in no acute distress. The patient is alert and oriented to person, place and time. Speech clear. [place] The patient exhibits unlabored breathing and normal respirations . Event monitor in place. The patient's abdomen is soft and non-tender. PERRL, EOMI, face symmetric, tongue midline, hears to finger rub bilaterally, symmetric shoulder shrug, facial sensation intact to light touch (V1, V2, V3). BUE/BLE strength and sensation intact There is no pronator drift Skin dry and intact LABORATORY DATA Results from last 7 days Lab Units 12/14/23 0621 12/14/23 0445 SODIUM mmol/L -- 141 POTASSIUM mmol/L -- 4.0 CREATININE mg/dL -- 0.63 BEDSIDE GLUCOSE mg/dL 110* -- GLUCOSE mg/dL -- 103* CALCIUM mg/dL -- 9.4 APTT sec -- 30 INR -- 0.9 WBC X10E9/L -- 7.3 HEMATOCRIT % -- 31.6* HEMOGLOBIN g/dL -- 11.3* PLATELETS X10E9/L -- [address] Brain: OSH ASSESSMENT 83 yo who presented to OSH following a fall with CT imaging demonstrating small subarachnoid hemorrhage PLAN - Imaging studies independently reviewed; there is no acute neurosurgical intervention warranted - Repeat CT brain today - Keppra x 7 days for seizure prophylaxis - SBP < 140 - Serial Neuro checks - Ok for PT/OT/ST - Ok for diet - Hold ASA - SCD's for DVT prophylaxis - Cardiology consulted for syncopal workup - No need to remain in ICU from NS standpoint - Further management per Trauma Jodie KRAFT [facility] Contact via patient touch 12/14/23 11:12 AM SWAPNIL Herrera 12/14/23 1112 [facility] Work Phone: 12-14-2023 Progress note Formatting of t his note is different from the original. Speech Therapy Speech & Language Cognitive Evaluation and Treatment Note Impressions Receptive Language: Mild Expressive Language: Moderate, With dysarthria, Mild-moderate Cognitive Linguistic: Moderate Recommendations Discharge Recommendations: (continued speech services) Rehab Therapy Type: Individual treatment Plan Frequency: 2-3days/week Duration: until discharge Treatments/Modalities: Strategies/techniques training Need for skilled Speech Language Pathology Services to address deficits in speech/language/cognition due to a status decline resulting from intracerebral hemorrhage. Pt, pt's family, and RN educated on results and recommendations of evaluation. Pt responds well to increased processing time, verbal cues, repetition, and semantic cues. Will continue to follow along. Prognosis Services: Skilled MINE INSPECTOR services to address the above deficits Prognosis/Potential: Good Considerations: Age, Ability to learn, Previous level of function Assessment Oral/Motor Overall Oral/Motor Status: Exceptions to Within Functional Limits Labial ROM: Reduced Labial Strength: Reduced Lingual ROM: Reduced Lingual Strength: Reduced Facial Strength: Reduced Intelligibility: Intelligibility reduced Intelligibility Rating: Mild, Moderate Breath Support: Adequate for speech Dentition: Adequate Xerostomia: No Hearing: Hard of hearing/hearing concerns Cranial Nerve Screening CN VII (facial): Reduced facial movements CN XII (hypoglossal): Reduced tongue movements Auditory Comprehension Overall Auditory Comphension Status: Exceptions to Within Functional Limits Paragraph: Mild Perception Overall Perception Status: Exceptions to Within Functional Limits Initiation: Cues to initiate tasks Visual Recognition Overall Visual Recognition Status: Within Functional Limits Expression Overall Expression Status: Exceptions to Within Functional Limits Primary Mode of Expression: Verbal Verbal Expression Overall Verbal Expression Status: Exceptions to Within Functional Limits Automatics: Impairment Naming: Impairment Convergent: Mild Divergent: Moderate Speech Production Overall Speech Production: Exceptions to Within Functional Limits Words: Mild Phrases: Mild, Moderate Sentences: Mild, Moderate Dysarthria: Present Voice Evaluation Overall Voice Impairment Severity: None Pragmatics/Social Functioning Overall Pragmatic Status: Within Functional Limits Fluency Comments: no dysfluencies noted High Level Language Overall High Level Language Status: Exceptions to Within Functional Limits Attention: Exceptions to WFL Alternating Attention: Mild Divided Attention: Mild Selective Attention: Mild Sustained Attention: Mild Memory: Exceptions to WFL Immediate Memory: Mild Short-term Memory: Moderate Problem Solving: Exceptions to WFL Complex Functional Tasks: Moderate Verbal Reasoning Skills: Mild Numeric Reasoning: Exceptions to WFL Complex Calculations: Moderate Abstract Reasoning: Mild Inductive Reasoning: Moderate Deductive Reasoning: Moderate Flexibility of Thought: Reduced flexibility Organization: Moderately disorganized Cognition Overall Cognitive Status: Exceptions to Within Functional Limits Memory: Decreased immediate memory, Decreased short term memory Orientation Level: Oriented X4 Problem Solving: Assistance required to generate solutions, Assistance required to implement solutions Pain Assessment Pain Assessment: No/denies pain Plan Diagnosis Code Language: R48.8 Other symbolic dysfunction/acalculia/agraphia Speech Therapy Care Plan Speech Therapy Care Plan (Active) Template: ST - Rehab Speech Problem: Auditory Comprehension Dates: Start: 12/14/23 Disciplines: MINE INSPECTOR Goal: LTG: Patient will comprehend communication related to basic medical and social needs and utilize compensatory strategies to maintain safety in a functional living environment Dates: Start: 12/14/23 Expected End: 01/14/24 Disciplines: MINE INSPECTOR Goal: STG: Patient will complete complex, paragraph level auditory comprehension tasks with 90% accuracy with minimal cueing Dates: Start: 12/14/23 Expected End: 01/14/24 Disciplines: MINE INSPECTOR Problem: Cognitive Linguistic Dates: Start: 12/14/23 Disciplines: MINE INSPECTOR Goal: LTG: Patient will display functional cognitive-linguistic skills to demonstrate appropriate communication and safety within daily activities in a functional living environment Dates: Start: 12/14/23 Expected End: 01/14/24 Disciplines: MINE INSPECTOR Goal: STG: Patient will describe/demonstrate/initiate use of 3 memory strategies with minimal cueing Dates: Start: 12/14/23 Expected End: 01/14/24 Disciplines: MINE INSPECTOR Problem: High Level Language Dates: Start: 12/14/23 Disciplines: MINE INSPECTOR Goal: LTG: Patient will demonstrate use of self-awareness, goal setting, planning, initiation, self-monitoring and problem solving during daily activities to improve safety and awareness in a functional living environment Dates: Start: 12/14/23 Expected End: 01/14/24 Disciplines: MINE INSPECTOR Goal: STG: Patient will complete simple to complex organization, scheduling, planning and reasoning tasks to improve problem solving and safety awareness with 90% accuracy with minimal cueing Dates: Start: 12/14/23 Expected End: 01/14/24 Disciplines: MINE INSPECTOR Problem: Speech Production Dates: Start: 12/14/23 Disciplines: MINE INSPECTOR Goal: LTG: Patient will develop functional and intelligible speech and utilize compensatory strategies through the use of adequate labial and lingual function, increased articulatory precision and speech prosody Dates: Start: 12/14/23 Expected End: 01/14/24 Disciplines: MINE INSPECTOR Goal: STG: Patient will use appropriate articulatory accuracy and speech rate when reading/speaking with 90% accuracy with minimal cueing Dates: Start: 12/14/23 Expected End: 01/14/24 Disciplines: MINE INSPECTOR Goal: STG: Patient will complete rapid alternating verbal sequences (tongue twisters) with improved articulatory precision with 90% accuracy with minimal cueing Dates: Start: 12/14/23 Expected End: 01/14/24 Disciplines: MINE INSPECTOR Problem: Verbal Expression Dates: Start: 12/14/23 Disciplines: MINE INSPECTOR Goal: LTG: Patient will utilize compensatory strategies to communicate wants and needs effectively to different conversational partners, maintain safety and participate socially in a functional living environment Dates: Start: 12/14/23 Expected End: 01/14/24 Disciplines: MINE INSPECTOR Goal: STG: Patient will complete simple to complex divergent and convergent naming tasks with 90% accuracy with minimal cueing to improve thought organization Dates: Start: 12/14/23 Expected End: 01/14/24 Disciplines: MINE INSPECTOR Speech Therapy Care Plan (Resolved) There are no resolved problems. Principal Problem: ICH (intracerebral hemorrhage) ([facility]) [facility] 12-14-2023 Progress note Formatting of t his note is different from the original. Physical Therapy (P) CANCEL - Deferred (Awaiting NS consult regarding new ICH bleed) Will check back as appropriate. [facility] 12-14-2023 Progress note Formatting of t his note is different from the original. Occupational Therapy CANCEL - Deferred (patient has ICH and awaiting neurosurgery consult) [facility] 12-14-2023 Nurse Note Multidisciplinary Rounds Attendees: Bedside RN and Care navigation Diet: Dietary Orders (From admission, onward) Start Ordered 12/14/23 0616 Adult diet NPO; Except medications Diet effective now Question Answer Comment Diet Type: NPO NPO Except: Except medications 12/14/23 0615 PT OT MINE INSPECTOR: PT OT MINE INSPECTOR Orders (From admission, onward) Start Ordered 12/14/23 0616 Consult Occupational Therapy- eval and treat Once Question Answer Comment Does patient currently have an order for bedrest? No - (continue) Has nursing attempted to mobilize this patient? Yes- (continue) Reason for OT Skilled need for ADL intervention(s) 12/14/23 0615 12/14/23 0616 Consult Physical Therapy- eval and treat Once Question Answer Comment Does patient currently have an order for bedrest? No - (continue) Has nursing attempted to mobilize this patient? Yes- (continue) Reason for PT? Skilled need for functional mobility intervention(s) evaluate for positioning and/or splinting 12/14/23 0615 12/14/23 0616 Consult Speech Therapy- eval and treat Once Question: Reason for ST? Answer: Speech/Language/Cognition 12/14/23614 Activity: Up with assist Comments: Jacques: No CVL: No Drips: None Intubated: No Family Issues: None Outstanding Tests/Procedures: None Barriers: None Discharge Plan: [facility]eds [facility] 12-14-2023 History and physical note Images from the original note were not included. Trauma Surgery History & Physical Examination /Consultation Note Patient: Kelin Rosenberg Date of : 1940 Estimated time of injury: 2 days ago LOC: no Transport: EMS from [place] Trauma level: Trauma Consult Work related: No History of Present Illness Kelin Rosenberg is an 83 y.o. White or female states on Tuesday her reports that she fell in the living room. She is amnestic to events. She was initially taken to [facility] and had a CTH which was read as negative and she was admitted for observation status overnight and sent home the following morning. Family later noticed she had slurred speech and she was taken back to the hospital and found that she did have a subarachnoid on original imaging. They spoke with [employer] Stroke - felt this was traumatic, she was transferred to [facility] for definitive care. On arrival she is alert and interactive. Independently reviewed external notes from outside hospital when available. Past Medical History No past medical history on file. Trauma Past Surgical History No past surgical history on file. Travel Screening No screening recorded since 12/13/23 0421 Travel History Travel since 11/13/23 No documented travel since 11/13/23 Family History No family history on file. Review of Systems Review of Systems (Positive Findings in Bold) Const: Fever / Chills / Weight Loss / Recent falls Eyes: Blurry vision/ Vision Change HEENT: LAZO / Neck Pain / Otorrhea / Rhinorrhea RESP: SOB / Cough / Wheeze CARDIAC: CP / Palpitations / Edema GI: N / V / Abd Pain / Diarrhea / Constipation : Hematuria / Discharge MS: Weakness / Pain / Dec ROM Integ: Rashes / Poorly healing wounds Neuro: LAZO / Gait imbalance / Increased confusion / Numbness / Tingling / Paralysis Psych: Depression / Anxiety / Hallucinations / Suicide Allergies Not on File Home Meds Prior to Admission medications Not on File Immunizatons Immunization History Administered Date(s) Administered Covid-19, Mrna, Lnp-s, Bivalent, Pf, 50mcg/0.5ml or 25mcg/0.25ml 08/18/2020, 09/25/2020, 04/03/2021 Last Tetanus: Unsure Social History Social History Socioeconomic History Marital status: Spouse name: Not on file Number of children: Not on file Years of education: Not on file Highest education level: Not on file Occupational History Not on file Tobacco Use Smoking status: Not on file Smokeless tobacco: Not on file Substance and Sexual Activity Alcohol use: Not on file Drug use: Not on file Sexual activity: Not on file Other Topics Concern Not on file Social History Narrative Not on file Social Determinants of Health Financial Resource Strain: Not on file Food Insecurity: Not on file Transportation Needs: Not on file Physical Activity: Not on file Stress: Not on file Social Connections: Not on file Interpersonal Safety: Unknown (06/09/2023) Received from [facility] Safety & Environment Fear of Current or Ex-Partner: Not on file Emotionally Abused: Not on file Physically Abused: Not on file Sexually Abused: Not on file Physically or Sexually Abused: Not on file Housing Instability: Not on file Substance Use: ETOH No Tobacco No Drugs No Support: family Occupation: NPO since: now LMP: N/A Smoking cessation discussed: no Vitals Vital signs: Vitals: 12/14/23 0440 12/14/23 0445 12/14/23 0451 BP: 160/61 171/60 Pulse: 56 Resp: 16 Temp: 37 C (98.6 F) SpO2: 97% 94% Temperature Range Last 24 Hours : Temp: 37 C (98.6 F) Temp Av C (98.6 F) Min: 37 C (98.6 F) Max: 37 C (98.6 F) Admit Weight: There is no height or weight on file to calculate BMI. Last Weights: Wt Readings from Last 3 Encounters: No data found for Wt I/O's:No intake or output data in the 24 hours ending 12/14/23 0453 No data recorded Last 24 hr Labs No results found for this or any previous visit (from the past 24 hour(s)). Cultures: Microbiology Results (last 21 days) No results found for the last 504 hours. Independently reviewed trauma specific results. Radiology Results Bedside FAST exam results: Not performed FAST completed by: ECG 12-LEAD Result Date: 12/13/2023 Narrative: [place] [address] Electrocardiograph Report Signed Patient: KELIN ROSENBERG MR#: [id number] : 1940 Acct:[id number] Age/Sex: 83 / F ADM Date: 12/11/23 Loc: MS 201-[address]: Jennifer Kc M.D. Ordering Physician: Lonnie Washburn Date of Service: 12/11/23 Procedure(s): ECG 12 lead Accession Number(s): [id number] cc: [facility] Test Date: 2023-12-11 Pat Name: KELIN ROSENBERG Department: Room: - Gender: Female Director Of Loss Prevention: : 1940 Requested By: JENNIFER KC Order Number: [id number] Reading MD: RAMIN OROZCO Measurements Intervals [place] Rate: 49 P: -4 NC: 174 QRS: 127 QRSD: 122 T: 11 QT: 430 QTc: 402 Interpretive Statements 1130 Sinus bradycardia 3234 Anteroseptal myocardial infarction, age undetermined 5120 Possible right ventricular hypertrophy 9150 abnormal ECG No previous ECG available for comparison Electronically Signed On 12-13-2023 22:20:57 EDT by RAMIN OROZCO Dictated By: Ramin Orozco D.O. Signed By: 12/13/23 2220 DD/ 2344 TD/TT: Still Worker Helper: Independently reviewed radiographic studies to evaluate for acute traumatic injuries. Physical Exam Physical Exam Constitutional She is oriented to person, place, and time. She appears well-developed and well-nourished. Nursing note and vitals reviewed. HENT Head Normocephalic. Ears Right Ear: External ear normal. Left Ear: External ear normal. Mouth/Throat Throat: Oropharynx: oropharynx clear and moist Eyes: EOM are normal. Pupils are equal, round, and reactive to light. Neck Normal range of motion. Spine: Cervical Spine Tenderness: no tenderness/stepoffs. Thoracic Tenderness: no tenderness/stepoffs. Lumbar Tenderness: no tenderness/stepoffs. Cardiovascular: Normal rate and regular rhythm. Pulses: intact distal pulses Radial pulses are 2+ on the right side and 2+ on the left side. Posterior tibial pulses are 2+ on the right side and 2+ on the left side. Heart Sounds: normal heart sounds. Pulmonary/Chest: Effort normal and breath sounds normal. She exhibits no tenderness. Abdominal: Bowel sounds are normal. She exhibits no distension. Soft. There is no abdominal tenderness. Musculoskeletal: Cervical back: Normal range of motion. Vascular: Right Lower Extremity Right lower extremity pulses PT: 2+ Left Lower Extremity Left lower extremity pulses PT: 2+ Right Upper Extremity Right upper extremity pulses Radial: 2+ Left Upper Extremity Left upper extremity pulses Radial: 2+ Neurological: She is alert and oriented to person, place, and time. GLASCOW COMA SCALE: GCS eye score is: 4 GCS verbal score is: 5 GCS motor score is: 6 GCS total score is: 15 Revised Trauma Score: Respiratory Rate score is: 4 Systolic BP score is: 4 GCS score is: 4 Revised Trauma Total Score is: 12 Motor: Left Side Strength: Planning Engineer: 5/5 Dorsi/Plantar Flexion: 5/5 Right Side Strength: Planning Engineer: 5/5 Dorsi/Plantar Flexion: 5/5 Skin: Skin is warm and dry. Nursing note and vitals reviewed. Airway: Intact Breathing: Intact Circulation: Intact GCS: 15 Eye: Verbal Motor 1 Does not open 1 No sounds 1 No movement 2 Opens to pain 2 Incomprehensible sounds 2 Extension w/pain 3 Opens to voice 3 Incoherent words 3 Flex w/ pain 4 Spontaneous 4 Confused / disoriented 4 Withdraw from pain 5 Oriented 5 Localizes to painful stimuli 6 Obeys commands [employer] 1994 Have you felt the need to cut down on your drinking or drug use? no Do you feel annoyed by people complaining about your drinking or drug use? no Do you ever feel guilty about your drinking or drug use? no Have you ever had a drink or used drugs first thing in the morning to steady your nerves or to get rid of a hangover? no Scorin or more positive terms indicate the need for a brief intervention or social work consult. ASSESSMENT / PLAN Kelin Rosenberg 83 y.o. female Mechanism: Fall 2 days ago Tertiary Examination: To be completed within 24hrs of admission if possible. Injuries/Traumatic issues: Fall/syncope -TraumaGram -CT Head : small SAH in the R precentral sulcus is unchanged, there is a small amount of SAH at the R temporal lobe & medial left frontal lobe has resolved. Development of 0.9cm x 0.8 cm hyperdense SAH at left insular cortex. SAH in the left temporal lobe & superior cerebellar cistern & quadrigeminal cistern. -CXR : unremarkable -TraumaLabs -CMP -CBC -Coags, PT/INR -Amylase -Lipase -Ethanol -Urine Drug screen -Urinalysis 2. Scattered subarachnoid hemorrhages - Hold ASA - development of small new bleeds, admit to Neuro ICU for close monitoring - consult Neurosurgery - Keep SBP less then 140 3. Syncope - consult cardiology - EKG Comorbidities/Medical issues: Neuro- Pulm- Cardio- history of CABG GI- - Heme- ID- MSK- Endo- Lytes- Lines and Tubes: PIV Nutrition: NPO Prophylaxis: EPC cuffs Disposition: Admit to Neuro ICU Medical Decision Making: High ER Procedures: 1. None CONSULTATIONS Consultations:Neurosurgery (NSx) at 0520 Did consultants call back in 10min: yes Trauma Team Present: Mega BARBA and Tequila BAY Trauma Team Arrival time: 444 Attending: Dr. Kyle Horton MD saw patient on the floor SWAPNIL Norris 12/14/23 4:53 AM Trauma can be reached via Patient Touch Pager: [phone] SWAPNIL Norris 12/14/23 0543 [employer] Work Phone: 12-14-2023 History and physical note Images from the original note were not included. Trauma Surgery History & Physical Examination /Consultation Note Patient: Kelin Rosenberg Date of : 1940 Estimated time of injury: 2 days ago LOC: no Transport: EMS from [place] Trauma level: Trauma Consult Work related: No History of Present Illness Kelin Rosenberg is an 83 y.o. White or female states on Tuesday her reports that she fell in the living room. She is amnestic to events. She was initially taken to [facility] and had a CTH which was read as negative and she was admitted for observation status overnight and sent home the following morning. Family later noticed she had slurred speech and she was taken back to the hospital and found that she did have a subarachnoid on original imaging. They spoke with [employer] [facility] - felt this was traumatic, she was transferred to [facility] for definitive care. On arrival she is alert and interactive. Independently reviewed external notes from outside hospital when available. Past Medical History No past medical history on file. Trauma Past Surgical History No past surgical history on file. Travel Screening No screening recorded since 12/13/23 0421 Travel History Travel since 11/13/23 No documented travel since 11/13/23 Family History No family history on file. Review of Systems Review of Systems (Positive Findings in Bold) Const: Fever / Chills / Weight Loss / Recent falls Eyes: Blurry vision/ Vision Change HEENT: LAZO / Neck Pain / Otorrhea / Rhinorrhea RESP: SOB / Cough / Wheeze CARDIAC: CP / Palpitations / Edema GI: N / V / Abd Pain / Diarrhea / Constipation : Hematuria / Discharge MS: Weakness / Pain / Dec ROM Integ: Rashes / Poorly healing wounds Neuro: LAZO / Gait imbalance / Increased confusion / Numbness / Tingling / Paralysis Psych: Depression / Anxiety / Hallucinations / Suicide Allergies Not on File Home Meds Prior to Admission medications Not on File Immunizatons Immunization History Administered Date(s) Administered Covid-19, Mrna, Lnp-s, Bivalent, Pf, 50mcg/0.5ml or 25mcg/0.25ml 08/18/2020, 09/25/2020, 04/03/2021 Last Tetanus: Unsure Social History Social History Socioeconomic History Marital status: Spouse name: Not on file Number of children: Not on file Years of education: Not on file Highest education level: Not on file Occupational History Not on file Tobacco Use Smoking status: Not on file Smokeless tobacco: Not on file Substance and Sexual Activity Alcohol use: Not on file Drug use: Not on file Sexual activity: Not on file Other Topics Concern Not on file Social History Narrative Not on file Social Determinants of Health Financial Resource Strain: Not on file Food Insecurity: Not on file Transportation Needs: Not on file Physical Activity: Not on file Stress: Not on file Social Connections: Not on file Interpersonal Safety: Unknown (06/09/2023) Received from [facility] Safety & Environment Fear of Current or Ex-Partner: Not on file Emotionally Abused: Not on file Physically Abused: Not on file Sexually Abused: Not on file Physically or Sexually Abused: Not on file Housing Instability: Not on file Substance Use: ETOH No Tobacco No Drugs No Support: family Occupation: NPO since: now LMP: N/A Smoking cessation discussed: no Vitals Vital signs: Vitals: 12/14/23 0440 12/14/2344412/14/23450 BP: 160/61 171/60 Pulse: 56 Resp: 16 Temp: 37 C (98.6 F) SpO2: 97% 94% Temperature Range Last 24 Hours : Temp: 37 C (98.6 F) Temp Av C (98.6 F) Min: 37 C (98.6 F) Max: 37 C (98.6 F) Admit Weight: There is no height or weight on file to calculate BMI. Last Weights: Wt Readings from Last 3 Encounters: No data found for Wt I/O's:No intake or output data in the 24 hours ending 12/14/23452 No data recorded Last 24 hr Labs No results found for this or any previous visit (from the past 24 hour(s)). Cultures: Microbiology Results (last 21 days) No results found for the last 504 hours. Independently reviewed trauma specific results. Radiology Results Bedside FAST exam results: Not performed FAST completed by: ECG 12-LEAD Result Date: 12/13/2023 Narrative: [facility] [place] [id number] Electrocardiograph Report Signed Patient: KELIN ROSENBERG MR#: [id number] : 1940 Acct:[id number] Age/Sex: 83 / F ADM Date: 12/11/23 Loc: MS 201-[address]: Jennifer Kc M.D. Ordering Physician: Lonnie Washburn Date of Service: 12/11/23 Procedure(s): ECG 12 lead Accession Number(s): [id number] cc: [facility] Test Date: 2023-12-11 Pat Name: KELIN ROSENBERG Department: Room: - Gender: Female Director Of Loss Prevention: : 1940 Requested By: JENNIFER KC Order Number: [id number] Reading MD: RAMIN OROZCO Measurements Intervals [place] Rate: 49 P: -4 NC: 174 QRS: 127 QRSD: 122 T: 11 QT: 430 QTc: 402 Interpretive Statements 1130 Sinus bradycardia 3234 Anteroseptal myocardial infarction, age undetermined 5120 Possible right ventricular hypertrophy 9150 abnormal ECG No previous ECG available for comparison Electronically Signed On 12-13-2023 22:20:57 EDT by RAMIN OROZCO Dictated By: Ramin Orozco D.O. Signed By: 12/13/23 2221 DD/ 1706 TD/TT: Still Worker Helper: Independently reviewed radiographic studies to evaluate for acute traumatic injuries. Physical Exam Physical Exam Constitutional She is oriented to person, place, and time. She appears well-developed and well-nourished. Nursing note and vitals reviewed. HENT Head Normocephalic. Ears Right Ear: External ear normal. Left Ear: External ear normal. Mouth/Throat Throat: Oropharynx: oropharynx clear and moist Eyes: EOM are normal. Pupils are equal, round, and reactive to light. Neck Normal range of motion. Spine: Cervical Spine Tenderness: no tenderness/stepoffs. Thoracic Tenderness: no tenderness/stepoffs. Lumbar Tenderness: no tenderness/stepoffs. Cardiovascular: Normal rate and regular rhythm. Pulses: intact distal pulses Radial pulses are 2+ on the right side and 2+ on the left side. Posterior tibial pulses are 2+ on the right side and 2+ on the left side. Heart Sounds: normal heart sounds. Pulmonary/Chest: Effort normal and breath sounds normal. She exhibits no tenderness. Abdominal: Bowel sounds are normal. She exhibits no distension. Soft. There is no abdominal tenderness. Musculoskeletal: Cervical back: Normal range of motion. Vascular: Right Lower Extremity Right lower extremity pulses PT: 2+ Left Lower Extremity Left lower extremity pulses PT: 2+ Right Upper Extremity Right upper extremity pulses Radial: 2+ Left Upper Extremity Left upper extremity pulses Radial: 2+ Neurological: She is alert and oriented to person, place, and time. GLASCOW COMA SCALE: GCS eye score is: 4 GCS verbal score is: 5 GCS motor score is: 6 GCS total score is: 15 Revised Trauma Score: Respiratory Rate score is: 4 Systolic BP score is: 4 GCS score is: 4 Revised Trauma Total Score is: 12 Motor: Left Side Strength: Planning Engineer: 5/5 Dorsi/Plantar Flexion: 5/5 Right Side Strength: Planning Engineer: 5/5 Dorsi/Plantar Flexion: 5/5 Skin: Skin is warm and dry. Nursing note and vitals reviewed. Airway: Intact Breathing: Intact Circulation: Intact GCS: 15 Eye: Verbal Motor 1 Does not open 1 No sounds 1 No movement 2 Opens to pain 2 Incomprehensible sounds 2 Extension w/pain 3 Opens to voice 3 Incoherent words 3 Flex w/ pain 4 Spontaneous 4 Confused / disoriented 4 Withdraw from pain 5 Oriented 5 Localizes to painful stimuli 6 Obeys commands [employer]AGE[employer] Journal 1994 Have you felt the need to cut down on your drinking or drug use? no Do you feel annoyed by people complaining about your drinking or drug use? no Do you ever feel guilty about your drinking or drug use? no Have you ever had a drink or used drugs first thing in the morning to steady your nerves or to get rid of a hangover? no Scorin or more positive terms indicate the need for a brief intervention or social work consult. ASSESSMENT / PLAN Kelin Rosenberg 83 y.o. female Mechanism: Fall 2 days ago Tertiary Examination: To be completed within 24hrs of admission if possible. Injuries/Traumatic issues: Fall/syncope -TraumaGram -CT Head : small SAH in the R precentral sulcus is unchanged, there is a small amount of SAH at the R temporal lobe & medial left frontal lobe has resolved. Development of 0.9cm x 0.8 cm hyperdense SAH at left insular cortex. SAH in the left temporal lobe & superior cerebellar cistern & quadrigeminal cistern. -CXR : unremarkable -TraumaLabs -CMP -CBC -Coags, PT/INR -Amylase -Lipase -Ethanol -Urine Drug screen -Urinalysis 2. Scattered subarachnoid hemorrhages - Hold ASA - development of small new bleeds, admit to Neuro ICU for close monitoring - consult Neurosurgery - Keep SBP less then 140 3. Syncope - consult cardiology - EKG Comorbidities/Medical issues: Neuro- Pulm- Cardio- history of CABG GI- - Heme- ID- MSK- Endo- Lytes- Lines and Tubes: PIV Nutrition: NPO Prophylaxis: EPC cuffs Disposition: Admit to Neuro ICU Medical Decision Making: High ER Procedures: 1. None CONSULTATIONS Consultations:Neurosurgery (NSx) at 0520 Did consultants call back in 10min: yes Trauma Team Present: Mega [facility]BA and Tequila BAY Trauma Team Arrival time: 444 Attending: Dr. Kyle Horton MD saw patient on the floor SWAPNIL Norris 12/14/23 4:53 AM Trauma can be reached via Patient Touch Pager: [phone] SWAPNIL Norris 12/14/23 5322 documented in this encounter [facility] 12-14-2023 Emergency department Triage note Pt to ER via PTN. Pt transferred from [facility] to see [facility] trauma team. [facility] 12-14-2023 Emergency department Note Pt to ER via PTN. Pt transferred from [facility] to see [facility] trauma team. Images from the original note were not included. History Chief Complaint Patient presents with Head Injury With Unknown LOC Fall I, Kath Patterson (scribe), documented on behalf of Dr. Hui Branch who performed an initial exam at 0424. Kelin Rosenberg is a 83 y.o. female presents to the ED for a CC of subarachnoid bleed. Pt reports a small bleed found in her brain. She fell a few days ago and hit her head. She was seen, admitted, and then discharged home. Pt states she came back because her children were concerned she wasn't walking very steadily. Pt denies pain currently. History provided by: Patient Problem List Items Addressed This Visit Nervous and Auditory * (Principal) ICH (intracerebral hemorrhage) ([facility]) - Primary No past medical history on file. No past surgical history on file. Travel Screening No screening recorded since 12/13/23 0421 Travel History Travel since 11/13/23 No documented travel since 11/13/23 No family history on file. Social History Substance and Sexual Activity Drug Use Not on file Review of Systems Musculoskeletal: Negative for arthralgias, back pain, myalgias and neck pain. Physical Exam ED Triage Vitals Temp Pulse Resp BP SpO2 -- -- -- -- -- Temp src Heart Rate Source Patient Position BP Location FiO2 (%) -- -- -- -- -- Vitals: 12/14/23 0440 12/14/23 0445 12/14/23 0451 BP: 160/61 171/60 Temp: 37 C (98.6 F) Pulse: 56 Resp: 16 SpO2: 97% 94% MAP (mmHg): 91 94 Physical Exam Vitals and nursing note reviewed. Constitutional: General: She is not in acute distress. Appearance: Normal appearance. HENT: Head: Normocephalic and atraumatic. Right Ear: External ear normal. Left Ear: External ear normal. Nose: Nose normal. Mouth/Throat: Mouth: Mucous membranes are moist. Pharynx: Oropharynx is clear. Eyes: Extraocular Movements: Extraocular movements intact. Conjunctiva/sclera: Conjunctivae normal. Cardiovascular: Rate and Rhythm: Normal rate and regular rhythm. Pulmonary: Effort: Pulmonary effort is normal. Breath sounds: Normal breath sounds. Abdominal: General: There is no distension. Palpations: There is no mass. Musculoskeletal: General: No deformity. Normal range of motion. Cervical back: Normal range of motion and neck supple. Skin: General: Skin is warm and dry. Capillary Refill: Capillary refill takes less than 2 seconds. Neurological: General: No focal deficit present. Mental Status: She is alert and oriented to person, place, and time. GCS: GCS eye subscore is 4. GCS verbal subscore is 5. GCS motor subscore is 6. Procedure Procedures Re-Evaluation Re-Evaluation ED Course Clinical Impressions as of 12/14/23 0601 ICH (intracerebral hemorrhage) ([facility]) [facility] Medical Decision Making Kath Almendarez (scribe) documented for Dr. Hui Branch. Chart Reviewed. Chief Complaint: subarachnoid bleed Differential Diagnosis includes but is not limited to: intercranial hemorrhage, trauma Plan of Care: cardiac monitoring, NIBP, continuous pulse ox, NPO, protime & INR, APTT, type and screen, CBC, drug screen, ethanol, amylase, CMP, fibrinogen, lipase, UA, XR chest Labs unremarkable. Imaging was independently viewed by Dr. Hui Branch and are notable for: no acute cardiopulm process. However, pending official radiologist read. 0513 On re-evaluation, patient is resting comfortably. Monitor notes HR 56. Results were discussed. Based on the diagnostic results and physical exam, pt requires admission. Risk Decision regarding hospitalization. RESULTS Labs: Labs Reviewed CBC WITH AUTO DIFFERENTIAL - Abnormal; Notable for the following components: Result Value RBC count 3.57 (*) Hemoglobin 11.3 (*) Hematocrit 31.6 (*) All other components within normal limits COMPREHENSIVE METABOLIC PANEL - Abnormal; Notable for the following components: Glucose 103 (*) All other components within normal limits PROTIME & INR APTT ETHANOL AMYLASE FIBRINOGEN LIPASE DRUG SCREEN, URINE URINALYSIS TYPE AND SCREEN Radiology: X-ray chest 1 view Result Date: 12/14/2023 Clinical History: Trauma. Portable Upright chest: 12/14/2023 Comparison: None Findings: A single portable view of the chest was obtained. Is mild cardiac prominence. Pulmonary vessels are not enlarged. No pneumothorax or focal infiltrate is evident. There is no visible pleural effusion. IMPRESSION: No acute infiltrate. Finalized by Vel Herrmann MD on 12/14/2023 5:25 AM NURSING NOTES AND VITALS REVIEWED The nursing notes within the ED encounter and vital signs as below have been reviewed. BP 171/60 Pulse 56 Temp 37 C (98.6 F) Resp 16 SpO2 94% --------- PROGRESS NOTES --------- The plan of care has been discussed with patient including today s results, in addition to providing specific details regarding counseling pertaining to the diagnosis and prognosis. All questions were answered at this time and they are agreeable with the plan ADDITIONAL PROVIDER NOTES At this time the patient has objective evidence of an acute process requiring hospitalization or inpatient management. Medications hydrALAZINE (APRESOLINE) injection 10 mg (has no administration in time range) levETIRAcetam (KEPPRA) IVPB 1000 mg/100 mL in iso-osmotic sodium chloride (10 mg/mL premix) (has no administration in time range) Medication List None Diagnosis: 1. ICH (intracerebral hemorrhage) ([facility]) Disposition: Patient's disposition: Admit Patient's condition is stable. Provider Statement By electronically signing this emergency patient record, the Emergency Physician/CRAFT DEMONSTRATOR/PA-C attests that all entries made into the electronic medical record by ruben Arce prior to the Physician/CRAFT DEMONSTRATOR/PA-C signature reflect an accurate accounting of the evaluation and care rendered by that Emergency Physician/CRAFT DEMONSTRATOR/PA-C. The Emergency Physician/CRAFT DEMONSTRATOR/PA-C assumes full responsibility for those entries. The Emergency Physician/CRAFT DEMONSTRATOR/PA-C also attests that any patient testing or treatment that was instituted by nursing staff in accordance to Emergency Department Preemptive Guidelines have been reviewed and unless so stated elsewhere in this patient chart, the Physician/CRAFT DEMONSTRATOR/PA-C agrees with the testing and care provided. Provider Statement: By electronically signing this emergency patient record, the Emergency Physician/CRAFT DEMONSTRATOR/PA-C attests that all entries made into the electronic medical record by the scribe prior to the Physician/CRAFT DEMONSTRATOR/PA-C signature reflect an accurate accounting of the evaluation and care rendered by that Emergency Physician/CRAFT DEMONSTRATOR/PA-C. The Emergency Physician/CRAFT DEMONSTRATOR/PA-C assumes full responsibility for those entries. Kath Patterson 12/14/23 0431 Kath Patterson 12/14/23 0439 Kath Patterson 12/14/23 0450 Shawn Branch MD 12/14/23 0506 Kath Patterson 12/14/23 0517 Shawn Branch MD 12/14/23 0601 Bed: 21 Expected date: Expected time: Means of arrival: [facility] Comments: Kelin Chet 1940 [place] [facility]. 2 days ago fell struck her head was repeating questions. Admitted then d/c home next day back at baseline. Today returns for slurred speech according to family. Ct subarachnoid bleed missed by radiology 2 days ago according to ER attending. Takes baby asa daily. Dr Horton [facility] ER as trauma consult. 83 female Full code C/o slurred speech with family Fall 3 days ago Admitted for obs Wore halter monitor Old subarchanoid New subarachoid No midline shift Hx of htn 160 systolic EMS just left PTN 156/59, 97% room air documented in this encounter [facility] 12-14-2023 Physician Emergency department Note Images from the original note were not included. History Chief Complaint Patient presents with Head Injury With Unknown LOC Fall I, Kath Patterson (scribe), documented on behalf of Dr. Hui Branch who performed an initial exam at 0424. Kelin Rosenberg is a 83 y.o. female presents to the ED for a CC of subarachnoid bleed. Pt reports a small bleed found in her brain. She fell a few days ago and hit her head. She was seen, admitted, and then discharged home. Pt states she came back because her children were concerned she wasn't walking very steadily. Pt denies pain currently. History provided by: Patient Problem List Items Addressed This Visit Nervous and Auditory * (Principal) ICH (intracerebral hemorrhage) ([facility]) - Primary No past medical history on file. No past surgical history on file. Travel Screening No screening recorded since 12/13/23 042 Travel History Travel since 11/13/23 No documented travel since 11/13/23 No family history on file. Social History Substance and Sexual Activity Drug Use Not on file Review of Systems Musculoskeletal: Negative for arthralgias, back pain, myalgias and neck pain. Physical Exam ED Triage Vitals Temp Pulse Resp BP SpO2 -- -- -- -- -- Temp src Heart Rate Source Patient Position BP Location FiO2 (%) -- -- -- -- -- Vitals: 12/14/23 0440 12/14/23 0445 12/14/23 0451 BP: 160/61 171/60 Temp: 37 C (98.6 F) Pulse: 56 Resp: 16 SpO2: 97% 94% MAP (mmHg): 91 94 Physical Exam Vitals and nursing note reviewed. Constitutional: General: She is not in acute distress. Appearance: Normal appearance. HENT: Head: Normocephalic and atraumatic. Right Ear: External ear normal. Left Ear: External ear normal. Nose: Nose normal. Mouth/Throat: Mouth: Mucous membranes are moist. Pharynx: Oropharynx is clear. Eyes: Extraocular Movements: Extraocular movements intact. Conjunctiva/sclera: Conjunctivae normal. Cardiovascular: Rate and Rhythm: Normal rate and regular rhythm. Pulmonary: Effort: Pulmonary effort is normal. Breath sounds: Normal breath sounds. Abdominal: General: There is no distension. Palpations: There is no mass. Musculoskeletal: General: No deformity. Normal range of motion. Cervical back: Normal range of motion and neck supple. Skin: General: Skin is warm and dry. Capillary Refill: Capillary refill takes less than 2 seconds. Neurological: General: No focal deficit present. Mental Status: She is alert and oriented to person, place, and time. GCS: GCS eye subscore is 4. GCS verbal subscore is 5. GCS motor subscore is 6. Procedure Procedures Re-Evaluation Re-Evaluation ED Course Clinical Impressions as of 12/14/23 0601 ICH (intracerebral hemorrhage) ([facility]) MDM Medical Decision Making Kath Almendarezscribe) documented for Dr. Hui Branch. Chart Reviewed. Chief Complaint: subarachnoid bleed Differential Diagnosis includes but is not limited to: intercranial hemorrhage, trauma Plan of Care: cardiac monitoring, NIBP, continuous pulse ox, NPO, protime & INR, APTT, type and screen, CBC, drug screen, ethanol, amylase, CMP, fibrinogen, lipase, UA, XR chest Labs unremarkable. Imaging was independently viewed by Dr. Hui Branch and are notable for: no acute cardiopulm process. However, pending official radiologist read. 0513 On re-evaluation, patient is resting comfortably. Monitor notes HR 56. Results were discussed. Based on the diagnostic results and physical exam, pt requires admission. Risk Decision regarding hospitalization. RESULTS Labs: Labs Reviewed CBC WITH AUTO DIFFERENTIAL - Abnormal; Notable for the following components: Result Value RBC count 3.57 (*) Hemoglobin 11.3 (*) Hematocrit 31.6 (*) All other components within normal limits COMPREHENSIVE METABOLIC PANEL - Abnormal; Notable for the following components: Glucose 103 (*) All other components within normal limits PROTIME & INR APTT ETHANOL AMYLASE FIBRINOGEN LIPASE DRUG SCREEN, URINE URINALYSIS TYPE AND SCREEN Radiology: X-ray chest 1 view Result Date: 12/14/2023 Clinical History: Trauma. Portable Upright chest: 12/14/2023 Comparison: None Findings: A single portable view of the chest was obtained. Is mild cardiac prominence. Pulmonary vessels are not enlarged. No pneumothorax or focal infiltrate is evident. There is no visible pleural effusion. IMPRESSION: No acute infiltrate. Finalized by Vel Herrmann MD on 12/14/2023 5:25 AM NURSING NOTES AND VITALS REVIEWED The nursing notes within the ED encounter and vital signs as below have been reviewed. BP 171/60 Pulse 56 Temp 37 C (98.6 F) Resp 16 SpO2 94% --------- PROGRESS NOTES --------- The plan of care has been discussed with patient including today s results, in addition to providing specific details regarding counseling pertaining to the diagnosis and prognosis. All questions were answered at this time and they are agreeable with the plan ADDITIONAL PROVIDER NOTES At this time the patient has objective evidence of an acute process requiring hospitalization or inpatient management. Medications hydrALAZINE (APRESOLINE) injection 10 mg (has no administration in time range) levETIRAcetam (KEPPRA) IVPB 1000 mg/100 mL in iso-osmotic sodium chloride (10 mg/mL premix) (has no administration in time range) Medication List None Diagnosis: 1. ICH (intracerebral hemorrhage) ([facility]) Disposition: Patient's disposition: Admit Patient's condition is stable. Provider Statement By electronically signing this emergency patient record, the Emergency Physician/CRAFT DEMONSTRATOR/PA-C attests that all entries made into the electronic medical record by ruben Arce prior to the Physician/CRAFT DEMONSTRATOR/PA-C signature reflect an accurate accounting of the evaluation and care rendered by that Emergency Physician/CRAFT DEMONSTRATOR/PA-C. The Emergency Physician/CRAFT DEMONSTRATOR/PA-C assumes full responsibility for those entries. The Emergency Physician/CRAFT DEMONSTRATOR/PA-C also attests that any patient testing or treatment that was instituted by nursing staff in accordance to Emergency Department Preemptive Guidelines have been reviewed and unless so stated elsewhere in this patient chart, the Physician/CRAFT DEMONSTRATOR/PA-C agrees with the testing and care provided. Provider Statement: By electronically signing this emergency patient record, the Emergency Physician/CRAFT DEMONSTRATOR/PA-C attests that all entries made into the electronic medical record by the scribe prior to the Physician/CRAFT DEMONSTRATOR/PA-C signature reflect an accurate accounting of the evaluation and care rendered by that Emergency Physician/CRAFT DEMONSTRATOR/PA-C. The Emergency Physician/CRAFT DEMONSTRATOR/PA-C assumes full responsibility for those entries. Kath Patterson 12/14/23 0431 Kath Patterson 12/14/23 0439 Kath peace 12/14/23 0450 Shawn Branch MD 12/14/23 0506 Kath Yesenia 12/14/23 0517 Shawn Branch MD 12/14/23 0601 [facility] 12-14-2023 Emergency department Note Bed: 21 Expected date: Expected time: [facility]: Kelin [facility] [address] [place] [facility]. 2 days ago fell struck her head was repeating questions. Admitted then d/c home next day back at baseline. Today returns for slurred speech according to family. Ct subarachnoid bleed missed by radiology 2 days ago according to ER attending. Takes baby asa daily. Dr Horton accepts to [facility] as trauma consult. 83 female Full code C/o slurred speech with family Fall 3 days ago Admitted for obs Wore halter monitor Old subarchanoid New subarachoid No midline shift Hx of htn 160 systolic EMS just left PTN 156/59, 97% room air [facility] Hearing Aids [facility] 04-02-2022 Hospital Discharge instructions Patient Education 04/02/2022 08:53:58 Kidney Stones, [id number] Kidney Stones Kidney stones are rock-like masses [...] Follow these instructions at home: Medicines Take [id number] and prescription medicines only as told by [...] 09/20/2008 Document Revised: 08/21/2019 Document Reviewed: 08/21/2019 [employer] Patient Education 2019 [employer]. Follow Up Care 03/30/2021 09:32:03 With:SYBIL RODRIGUEZ, Ruiz Rangel, URL Address: [address] [place] [id number]- When: Unknown [facility] Evaluation + Plan note No data available for this section [facility] Evaluation note Diagnosis ICH (intracerebral hemorrhage) ([facility] Primary Intracerebral hemorrhage ICH (intracerebral hemorrhage) ([facility]) Intracerebral hemorrhage documented in this encounter [facility] instructionsNot on filedocumented in this [facility]Mem[facility] note No data available for this section [facility] Summary Purpose Family History No Family History Records FoundNo Family History Records FoundNo Family History Records FoundNo Family History Records Found No data available for this section No Family History Records Found Advance Directives No Advanced Directives Records Found Date Activated Date Inactivated Comments 12/14/2023 6:15 AM 12/20/2023 8:38 PM Reason for Referral Specialty Diagnoses / Procedures Referred By Marizol christian Referred To Contact Diagnoses ICH (intracerebral hemorrhage) ([facility]) Procedures Follow-up with primary care provider Ludy Christianson PA [address] [facility] [facility] [address] [place] [address] Referral ID Status Reason Start Date Expiration Date V isits Requested Visits Authorized [id number] Pending Review 12/20/2023 12/19/2024 1 1 Specialty Diagnoses / Procedures Referred By Contac t Referred To Contact Procedures No dressing needed Ludy Christianson PA [address] [place] [address] Referral ID Status Reason Start Date Expiration Date V isits Requested Visits Authorized [id number] Pending Review 12/20/2023 12/19/2024 1 1 Specialty Diagnoses / Procedures Referred By Contac t Referred To Contact Procedures Adult diet Ludy Christianson PA [address] [place] [address] Referral ID Status Reason Start Date Expiration Date V isits Requested Visits Authorized [id number] Pending Review 12/20/2023 12/19/2024 1 1 Specialty Diagnoses / Procedures Referred By Contac t Referred To Contact Occupational Therapy Diagnoses ICH (intracerebral hemorrhage) ([facility]) Ludy Christianson PA [address] [place] [address] Referral ID Status Reason Start Date Expiration Date Visits Requested Visits Authorized [id number] Pending Review Specialty Services Required 12/20/2023 06/18/2024 12 12 Specialty Diagnoses / Procedures Referred By Contac t Referred To Contact Rehabilitation Diagnoses ICH (intracerebral hemorrhage) ([facility]) Ludy Christianson PA [address] [place] [address] Referral ID Status Reason Start Date Expiration Date Visits Requested Visits Authorized [id number] Pending Review Specialty Services Required 12/20/2023 06/18/2024 12 12 Additional Source Comments Patient Care team informatio n (unrecognized section and content) Track [employer] Relationship Specialty Start Date End Date No Pcp, [place] [address] PCP - General Family Medicine 12/14/23 INFORMATION SOURCE (unrecogn ized section and content) DATE CREATED AUTHOR 07/24/2022 [facility] DATE CREATED AUTHOR AUTHOR'S ORGANIZ ATION 12/19/2023 [facility] DATE CREATED AUTHOR AUTHOR'S ORGANIZ ATION 12/25/2023 [facility] DATE CREATED AUTHOR AUTHOR'S ORGANIZ ATION 04/04/[address] [facility] DATE CREATED AUTHOR AUTHOR'S ORGANIZ ATION 07/26/2024 [facility] Reason for Visit (unrecogniz ed section and content) Reason Comments Head Injury With Unknown LOC Fall Specialty Diagnoses / Procedures Referred By Contac t Referred To Contact Diagnoses Syncope ICH (intracerebral hemorrhage) ([facility]) Kyle Horton MD [address] [place] [address] Referral ID Status Reason Start Date Expiration Date Visits Re quested Visits Authorized [id number] 1 1 Scheduled Active and Recently Administ ered Medications (unrecognized section and content) Medication Order 12/18/2023 12/19/2023 12/20/2023 atorvastatin (LIPITOR) tablet 10 mg 10 mg, oral, Nightly, First dose on Tue12/14/23 at 2200, Look-alike/sound-alike medication - verify indication for use. 2155 (Given - Provider: Ericka Cantu RN) 2156 (Given - Provider: Ericka Cantu RN) calcium carbonate (OS-GEOVANNA) 500 mg elemental (1,250 mg) tablet 500 mg 500 mg, oral, 2 times daily with meals, First dose on Tue12/14/23 at 1700, Ordered as elemental calcium. 500 mg elemental calcium = 1250 mg calcium carbonate 0808 (Given - Provider: Ben Horan RN)1600 (Given - Provider: Ben Horan RN) 0756 (Given - Provider: Ben Horan, RN)1606 (Given - Provider: Ben Horan, RN) 0755 (Given - Provider: Ben Horan, RN)1658 (Given - Provider: Ben Horan RN) cholecalciferol (vitamin D3) (VITAMIN D3) capsule 5,000 Units 5,000 Units, oral, Daily, First dose on Tue12/14/23 at 1400 0809 (Given - Provider: Ben Horan RN) 0756 (Given - Provider: Ben Horan RN) 0755 (Given - Provider: Ben Horan RN) docusate sodium (COLACE) capsule 100 mg 100 mg, oral, 2 times daily, First dose on Tue12/14/23 at 1400, Look-alike/sound-alike medication - verify indication for use. 0809 (Given - Provider: Ben Horan RN)2156 (Given - Provider: Ericka Cantu RN) 075 (Given - Provider: Ben Horan RN)215 (Given - Provider: Ericka Cantu RN) 075 (Given - Provider: Ben Horan RN) enoxaparin (LOVENOX) syringe 30 mg 30 mg, subcutaneous, Every 12 hours, First dose (after last modification) on Tue12/17/23 at 1800, Per Trauma protocol Look-alike/sound-alike medication - verify indication for use. 0534 (Given - Provider: Livier Kelley RN)1600 (Given - Provider: Ben Horan RN) 0621 (Given - Provider: Ericka Cantu RN)1607 (Given - Provider: Ben Horan RN) 0624 (Given - Provider: Ericka Cantu, ROSIE)1658 (Given - Provider: Ben Horan, RN) insulin lispro (HumaLOG) injection 2-10 Units 2-10 Units, subcutaneous, 3 times daily with meals, First dose on Tue12/14/23 at 1200, Daytime hyperglycemia dosing. For blood glucose 151-200 mg/dL, give 2 units. For blood glucose 201-250 mg/dL, give 4 units. For blood glucose 251-300 mg/dL, give 6 units. For blood glucose 301-350 mg/dL, give 8 units. For blood glucose 351-400 mg/dL, give 10 units. Give even if NPO or meals skipped. Do NOT give more often then every 4 hours when NPO. Notify prescriber if blood glucose greater than 400 mg/dL. Look-alike/sound-alike medication - verify indication for use. Prime with 2 units of insulin prior to administration. Prandial/supplemental Insulin. Pre-filled pens stable 28 days at room temperature. Insulin lispro should be administered within 15 minutes before or immediately after a meal. 0800 (Not Given - Provider: Ben Horan RN - Reason: Order parameters not met)1200 (Not Given - Provider: Ben Horan RN - Reason: Order parameters not met)1700 (Not Given - Provider: Ben Horan RN - Reason: Order parameters not met) 0800 (Not Given - Provider: Ben Horan RN - Reason: Order parameters not met)1200 (Not Given - Provider: Ben Horan RN - Reason: Patient/family refused - Comment: pt has low appetite, family would like to hold)1700 (Not Given - Provider: Ben Horan RN - Reason: Order parameters not met) 0800 (Not Given - Provider: Ben Horan RN - Reason: Order parameters not met)1200 (Not Given - Provider: Ben Horan RN - Reason: Order parameters not met)1700 (Not Given - Provider: Ben Horan RN - Reason: Patient/family refused) insulin lispro (HumaLOG) injection 2-8 Units 2-8 Units, subcutaneous, Nightly, First dose on Tue12/14/23 at 2200, Bedtime hyperglycemia dosing. For blood glucose 201-250 mg/dL, give 2 units. For blood glucose 251-300 mg/dL, give 4 units. For blood glucose 301-350 mg/dL, give 6 units. For blood glucose 351-400 mg/dL, give 8 units. Give even if NPO or meals skipped. Do NOT give more often then every 4 hours when NPO. Notify prescriber if blood glucose greater than 400 mg/dL. Look-alike/sound-alike medication - verify indication for use. Prime with 2 units of insulin prior to administration. Prandial/supplemental Insulin. Pre-filled pens stable 28 days at room temperature. Insulin lispro should be administered within 15 minutes before or immediately after a meal. 2200 (Not Given - Provider: Ericka Cantu RN - Reason: Order parameters not met - Comment: BS 159) 2200 (Not Given - Provider: Ericka Cantu RN - Reason: Order parameters not met - Comment: BS 182) levETIRAcetam (KEPPRA) IVPB 500 mg/100 mL in iso-osmotic sodium chloride (5 mg/mL premix)(Linked Group 1) 500 mg, intravenous, at 400 mL/hr, Administer over 15 Minutes, Every 12 hours scheduled, First dose on Tue12/14/23 at 2100, For 7 days, Keppra 500mg IV daily every 12 hours may change to PO when taking PO Look-alike/sound-alike medication - verify indication for use. 0809 (See Alternative - Provider: Ben Horan RN)2155 (See Alternative - Provider: Ericka Cantu RN) 075 (See Alternative - Provider: Ben Horan RN)2157 (See Alternative - Provider: Ericka Cantu RN) 0755 (See Alternative - Provider: Ben Horan RN) levETIRAcetam (KEPPRA) tablet 500 mg(Linked Group 1) 500 mg, oral, Every 12 hours scheduled, First dose on Tue12/14/23 at 2100, For 7 days, When taking PO. if not able to take orally, give IV Look-alike/sound-alike medication - verify indication for use. 0809 (Given - Provider: Ben Horan RN)2155 (Given - Provider: Ericka Cantu RN) 075 (Given - Provider: Ben Horan RN)2157 (Given - Provider: Ericka Cantu RN) 075 (Given - Provider: Ben Horan RN) metFORMIN (GLUCOPHAGE) tablet 1,000 mg 1,000 mg, oral, Daily with breakfast, First dose on Tue12/16/23 at 0800, Hold dose and notify prescriber if blood glucose is less than 100 mg/dL or patient status has changed to NPO. Look-alike/sound-alike medication - verify indication for use. May alter blood glucose or insulin requirements. Metformin and use of contrast media will be reviewed according to Metformin and Metformin Containing Medications and Contrast Media policy. 0809 (Given - Provider: Ben Horan RN) 075 (Given - Provider: Ben Horan RN) 0755 (Given - Provider: Ben Horan, RN) metFORMIN (GLUCOPHAGE) tablet 500 mg 500 mg, oral, Nightly, First dose on Tue12/16/23 at 2200, Hold dose and notify prescriber if blood glucose is less than 100 mg/dL or patient status has changed to NPO. Look-alike/sound-alike medication - verify indication for use. May alter blood glucose or insulin requirements. Metformin and use of contrast media will be reviewed according to Metformin and Metformin Containing Medications and Contrast Media policy. 2155 (Given - Provider: Ericka Cantu RN) 2157 (Given - Provider: Ericka Cantu RN) metoprolol succinate XL (TOPROL XL) 24 hr tablet 50 mg 50 mg, oral, Nightly, First dose on Tue12/14/23 at 2200, Look-alike/sound-alike medication - verify indication for use. Do not crush or chew. 2158 (Given - Provider: Ericka Cantu RN) 2156 (Given - Provider: Ericka Cantu RN) sennosides-docusate sodium (SENOKOT-S) 8.6-50 mg 2 tablet 2 tablet, oral, Nightly, First dose on Tue12/14/23 at 2200, Administer when tolerating diet. Hold medication for diarrhea. 2155 (Given - Provider: Ericka Cantu RN) 2157 (Given - Provider: Ericka Cantu RN) sodium chloride 0.9 % flush 3 mL 3 mL, intravenous, Every 12 hours scheduled, First dose on Tue12/14/23 at 0900 0809 (Given - Provider: Ben Horan RN)2158 (Given - Provider: Ericka Cantu RN) 075 (Given - Provider: Ben Horan, RN)2201 (Given - Provider: Ericka Cantu RN) 075 (Given - Provider: Ben Horan, ROSIE) PRN Medication Order 12/18/2023 12/19/2023 12/20/2023 butalbital-acetaminophe n-caff (FIORICET, ESGIC) 50-325-40 mg per tablet 2 tablet 2 tablet, oral, Every 6 hours PRN, headaches, Starting on Tue12/16/23 at 0612, Look-alike/sound-alike medication - verify indication for use. 0325 (Given - Provider: Ericka Cantu RN) 0043 (Given - Provider: Ericka Cantu RN) dextrose (GLUTOSE) 40 % gel 15 g 15 g, oral, As needed, low blood sugar, blood glucose less than 70 mg/dL, Starting on Tue12/14/23 at 1009, If patient conscious and taking PO. If blood glucose is not greater than 70 mg/dL after initial treatment, repeat treatment. dextrose 5 % (D5W) infusion 100 mL/hr, intravenous, Continuous PRN, blood glucose less than 70 mg/dL, Starting on Tue12/14/23 at 1009, Use immediately following dextrose 50% or glucagon treatment for patients who are unconscious or NPO. Contact prescriber for additional orders. If blood glucose is not greater than 70 mg/dL after initial treatment, repeat treatment. dextrose 50 % in water (D50W) 50% solution 25 mL 25 mL, intravenous, As needed, low blood sugar, blood glucose less than 70 mg/dL and unconscious or NPO with IV access, Starting on Tue12/14/23 at 1009, Push over 1-3 minutes STAT. If conscious and not NPO, immediately follow with meal tray or high protein (7 grams) snack if tray not available. If NPO, initiate 5% dextrose in water at 100 mL/hr and contact prescriber for additional orders. If blood glucose is not greater than 70 mg/dL after initial treatment, repeat treatment. VESICANT (RED) Warning: HYPERTONIC solution. glucagon HCL injection 1 mg 1 mg, intramuscular, As needed, low blood sugar, blood glucose less than 70 mg/dL and unconscious or NPO without IV access., Starting on Tue12/14/23 at 1009, If conscious and not NPO, immediately follow with meal tray or high protein (7Grams) snack if tray not available. If NPO, initiate IV 5% Dextrose/Water at 100 mL/hr and contact prescriber for additional orders. If blood glucose is not greater than 70 mg/dL after initial treatment, repeat treatment. hydrALAZINE (APRESOLINE) injection 10 mg 10 mg, intravenous, Every 6 hours PRN, high blood pressure, Starting on Tue12/14/23 at 0615, For systolic blood pressure greater than 140 mmHg Look-alike/sound-alike medication - verify indication for use. Administer IV doses as a slow IV push; maximum rate: 5 mg/minute. labetaloL (NORMODYNE,TRANDATE) injection 10 mg 10 mg, intravenous, Every 4 hours PRN, high blood pressure, Starting on Tue12/14/23 at 0615, For systolic blood pressure greater than 140 mmHg Hold for HR less then 60 Look-alike/sound-alike medication - verify indication for use. ondansetron (PF) (ZOFRAN) injection 4 mg 4 mg, intravenous, Every 6 hours PRN, nausea, Starting on Tue12/14/23 at 0615, Administer over 2-5 minutes. oxyCODONE (ROXICODONE) immediate release tablet 10 mg(Linked Group 2) 10 mg, oral, Every 4 hours PRN, severe pain - pain scale 7-10, Starting on Tue12/16/23 at 0321, Look-alike/sound-alike medication - verify indication for use. Immediate release. 1600 (See Alternative - Provider: Ben Horan RN) oxyCODONE (ROXICODONE) immediate release tablet 5 mg(Linked Group 2) 5 mg, oral, Every 4 hours PRN, moderate pain - pain scale 4-6, Starting on Tue12/16/23 at 0321, Look-alike/sound-alike medication - verify indication for use. Immediate release. 1600 (Given - Provider: Ben Horan RN) sodium chloride 0.9 % flush 3 mL 3 mL, intravenous, As needed, line care, before and after each intermittent use, Starting on Tue12/14/23 at 0615 sodium chloride 0.9 % infusion 10 mL/hr, intravenous, Continuous PRN, to maintain patency of lines, Starting on Tue12/14/23 at 0730 Linked Groups Order Group 1: levETIRAcetam (KEPPRA) IVPB 500 mg/100 mL in iso-osmotic sodium chloride (5 mg/mL premix)Jump to med 500 mg, intravenous, at 400 mL/hr, Administer over 15 Minutes, Every 12 hours scheduled, First dose on Tue12/14/23 at 2100, For 7 days, Keppra 500mg IV daily every 12 hours may change to PO when taking PO Look-alike/sound-alike medication - verify indication for use. Or levETIRAcetam (KEPPRA) tablet 500 mgJump to med 500 mg, oral, Every 12 hours scheduled, First dose on Tue12/14/23 at 2100, For 7 days, When taking PO. if not able to take orally, give IV Look-alike/sound-alike medication - verify indication for use. Group 2: oxyCODONE (ROXICODONE) immediate release tablet 5 mgJump to med 5 mg, oral, Every 4 hours PRN, moderate pain - pain scale 4-6, Starting on Tue12/16/23 at 0321, Look-alike/sound-alike medication - verify indication for use. Immediate release. Or oxyCODONE (ROXICODONE) immediate release tablet 10 mgJump to med 10 mg, oral, Every 4 hours PRN, severe pain - pain scale 7-10, Starting on Tue12/16/23 at 0321, Look-alike/sound-alike medication - verify indication for use. Immediate release. FOR RECORDS PERTAINING TO PATIENTS WHO ARE [...] BE BASED ON THE PRIMARY CLINICAL RECORDS. [employer] provides no warranty or guarantee of the accuracy or completeness of information in this document.
== END 2024-09-04 09:27 | disposition home or self-care (01) ==
LOC: MRI 09:26
PROVIDERS: PCP Family Medicine; Visit Provider Family Medicine
DX: R41.0 Disorientation, unspecified (principal)
CPT/HCPCS: 70551

== ENCOUNTER 2025-01-01 11:25 | Outpatient (OUT) | payer MEDICARE, OTHER, SELFPAY ==
--- OUTSIDE RECORDS SUMMARY | 2025-01-01 11:28 | XMS_ITS | Encounter Summary ---
Author Organization [employer] Address [id number] [address] [place] [address] Care Team Providers Care Reconciliation Manager Name Role Phone No Pcp, No Pcp Primary Care Provider Unavailabl e Encounter Details Date Type Department Care Team (Late st Contact Info) Description 12/14/2023 Orders Only [facility] External Film Storage [address] [place] [phone] Transcribe, Orders Support User Pain (Primary Dx) Social History Tobacco Use Types Packs/Day Years Used Date Smoking Tobacco: Never Smokeless Tobacco: Never Alcohol Use Standard Drinks/Week Comments Never 0 (1 standard drink = 0.6 oz pur e alcohol) [facility] Utilities Answer Date Recorded In the past 12 months has e [employer], gas, oil, or water company threatened to shut off services in your home? No 12/14/2023 AUDIT-C Answer Date Recorded Q1: How often do you have a drink containing alcohol? Never 12/14/2023 Q2: How many drinks containi ng alcohol do you have on a typical day when you are drinking? Patient does not drink Q3: How often do you have si x or more drinks on one occasion? Never 12/14/2023 PRAPARE - Transportation Answer Date Re corded In the past 12 months, has l ack of transportation kept you from medical appointments or from getting medications? No 11/17 In the past 12 months, has l ack of transportation kept you from meetings, work, or from getting things needed for daily living? No 12/14/2023 Housing Instability Answer Date Recorde d Are you worried or concerned that in the next two months you may not have stable housing that you own, rent or stay in as a part of a household? No 12/14/2023 Hunger Screening Answer Date Recorded Within the past 12 months we worried whether our food would run out before we got money to buy more. Never True 12/14/2023 Within the past 12 months th e food we bought just didn't last and we didn't have money to get more. Never True 12/14/2023 Comments Unknown Sex and Gender Information Value Date Recorded Sex Assigned at Not on file Legal Sex Female 12:38 AM EDT Gender Identity Not on file Sexual Orientation Not on file documented as of this encounter Functional Status * Question Answer Date of Assessment Author Functional Status Independent 12/16/2023 3:35 PM EDT Nandini Brown RN * Audit-C Score Answer Date of Assessment Author 0 12/14/2023 11:10 AM EDT Emmie Green RN * Question Answer Date of Assessment Author Q1: How often do you have a drink containing alcohol? Never 12/14/2023 11:10 AM EDT Gareth Green RN Q2: How many drinks containing alcohol do you have on a typical day when you are drinking? Patient does not drink 12/14/2023 11:10 AM EDT Emmie Green RN Q3: How often do you have six or more drinks on one occasion? Never 12/14/2023 11:10 AM EDT Gareth Green RN documented as of this encounter Mental Status * Question Answer Entry Date Author Overall Cognitive Status X 12/16/2023 9:06 AM EDT Duyen Robles PT * Question Answer Entry Date Author Overall Cognitive Status X 12/14/2023 10:45 AM EDT Deepti Phelps CCC-EXCEL DEVELOPER documented in this encounter Plan of Treatment Not on file documented as of this encounter Goals Goal Patient Goal Type Associated Problems Recent Progress Patient-Stated? Author SNF General Yes Nandini Brown, ROSIE Note: Evaluation of progress towards goal: Patient and family agree to SNF for short term rehab at discharge. documented as of this encounter Results * CT brain without contrast (12/13/2023 10:35 PM EDT) us Scanning Provider External IMG CT ORDERABLES Fin al Result documented in this encounter Visit Diagnoses Diagnosis Pain- Primary Generalized pain documented in this encounter Care Teams Reconciliation Manager Relationship Specialty Start Date End Date No Pcp, [place] [address] PCP - General Family Medicine 12/14/23 documented as of this encounter
--- OUTSIDE RECORDS SUMMARY | 2025-01-01 11:28 | XMS_ITS | Encounter Summary ---
Author Organization [facility] Address [address] [place] [address] Care Team Providers Care Fur Clipper Name Role Phone Jennifer Kc MD Primary Care Provider [phone] Encounter Details Date Type Department Care Team (Late st Contact Info) Description 12/11/2023 Clinisync Result Encounter [facility] External Department Unsolicited Lonnie Washburn, PA [address] [place] [address] Social History Tobacco Use Types Packs/Day Years Used Date Smoking Tobacco: Never Smokeless Tobacco: Never Comments Unknown Sex and Gender Information Value Date Recorded Sex Assigned at Not on file Legal Sex Female 11:59 AM EDT Gender Identity Not on file Sexual Orientation Not on file documented as of this encounter Plan of Treatment Not on file documented as of this encounter Procedures Procedure Name Priority Date/Time Associated Diagnosis Comments ECG 12-LEAD 12/11/2023 5:06 PM EDT documented in this encounter Results * ECG 12-LEAD (12/11/2023 5:06 PM EDT) Anatomical Region Laterality Modality Other 12/11/2023 5:06 PM EDT Narrative 12/13/2023 10:21 PM EDT The [address] [address] Electrocardiograph Report Signed Patient: KELIN TODD MR#: [id number] : 1940 Acct:[id number] Age/Sex: 83 / F ADM Date: 12/11/23 Loc: MS 201-[address]: Jennifer Kc M.D. Ordering Physician: Lonnie Washburn Date of Service: 12/11/23 Procedure(s): ECG 12 lead Accession Number(s): [id number] cc: [facility] Test Date: 2023-12-11 Pat Name: KELIN TODD Department: Room: - Gender: Female Film Loader: : 1940 Requested By: JENNIFER KC Order Number: [id number] Reading MD: RAMIN OROZCO Measurements Intervals [place] Rate: 49 P: -4 MA: 174 QRS: 127 QRSD: 122 T: 11 QT: 430 QTc: 402 Interpretive Statements 1130 Sinus bradycardia 3234 Anteroseptal myocardial infarction, age undetermined 5120 Possible right ventricular hypertrophy 9150 abnormal ECG No previous ECG available for comparison Electronically Signed On 12-13-2023 22:20:57 EDT by RAMIN OROZCO Dictated By: Ramin Orozco D.O. Signed By: 12/13/23 2221 DD/ 1706 TD/TT: Upholsterer Outside: Procedure Note Radiology, Radiologist, MD - 12/13/2023 [place] [address] Electrocardiograph Report Signed Patient: KELIN TODD RMR#: [id number] : 1940cct:[id number] Age/Sex: 83 / FADM Date: 12/11/23 Loc: MS 201-[address]: Jennifer Kc M.D. Ordering Physician: Lonnie Washburn Date of Service: 12/11/23 Procedure(s): ECG 12 lead Accession Number(s): [id number] cc: [facility] Test Date: 2023-12-11 Pat Name: KELIN TODD Department: Room: - Gender: Female Film Loader: : 1940 Requested By: JENNIFER KC Order Number: [id number] Reading : RAMIN OROZCO Measurements Intervals [place] Rate: 49 P: -4 MA: 174 QRS: 127 QRSD: 122 T: 11 QT: 430 QTc: 402 Interpretive Statements 1130 Sinus bradycardia 3234 Anteroseptal myocardial infarction, age undetermined 5120 Possible right ventricular hypertrophy 9150 abnormal ECG No previous ECG available for comparison Electronically Signed On 12-13-2023 22:20:57 EDT by RAMIN OROZCO Dictated By: Ramin Orozco D.O. Signed By:12/13/23 2221 DD/ 1706 TD/TT: Upholsterer Outside: us Lonnie [facility] Final Resul t documented in this encounter Visit Diagnoses Not on filedocumented in this encounter Care Teams Fur Clipper Relationship Specialty Start Date End Date Jennifer Kc MD PCP - General Family Medicine 11/08/22 documented as of this encounter
--- OUTSIDE RECORDS SUMMARY | 2025-01-01 11:28 | XMS_ITS | Encounter Summary ---
Author Organization [facility] Address [address] [facility] [place] [address] Care Team Providers Care Upholstery Bundler Name Role Phone Ben Shannon MD Primary Care Provider [phone] Encounter Details Date Type Department Care Team (Late st Contact Info) Description 01/09/2024 Abstract [facility] [address] [facility] [address] [place] [phone] Ben Shannon MD [address] [place] [address] Social History Tobacco Use Types Packs/Day Years Used Date Smoking Tobacco: Never Smokeless Tobacco: Never Comments Unknown Sex and Gender Information Value Date Recorded Sex Assigned at Not on file Legal Sex Female 11:59 AM EDT Gender Identity Not on file Sexual Orientation Not on file documented as of this encounter Plan of Treatment Not on file documented as of this encounter Visit Diagnoses Not on filedocumented in this encounter Care Teams Upholstery Bundler Relationship Specialty Start Date End Date Ben Shannon MD PCP - General Family Medicine 11/08/22 documented as of this encounter
--- OUTSIDE RECORDS SUMMARY | 2025-01-01 11:28 | XMS_ITS | Encounter Summary ---
Author Organization [facility] Address [address] [facility] [place] [address] Care Team Providers Care Artist Agent Name Role Phone Ben Shannon MD Primary Care Provider [phone] Encounter Details Date Type Department Care Team (Late st Contact Info) Description 01/05/2024 Abstract [facility] [address] [facility] [address] [place] [phone] Ben Shannon MD [address] [place] [address] Social History Tobacco Use Types Packs/Day Years [...] on filedocumented in this encounter Care Teams Artist Agent Relationship Specialty Start Date End Date Ben Shannon MD PCP - General Family Medicine 11/08/22 documented as of this encounter
--- OUTSIDE RECORDS SUMMARY | 2025-01-01 11:28 | XMS_ITS | Encounter Summary ---
Author Organization [facility] Address [address] [place] [address] Care Team Providers Care Cook Starch Name Role Phone Ben Shannon MD Primary Care Provider [phone] Encounter Details Date Type Department Care Team (Late st Contact Info) Description 12/13/2023 Orders Only [facility] [address] [place] [address] Lonnie Washburn PA [address] [place] [address] Social History Tobacco Use Types [...] Procedure Name Priority Date/Time Associated Diagnosis Comments XR CHEST 1 VIEW Routine 12/13/2023 9:18 AM EDT documented in this encounter Results * XR chest 1 view (12/13/2023 9:18 AM EDT) Anatomical Region Laterality Modality Chest Radiographic Michelle ging us Lonnie DREW IMG XR PROCEDURES Final Resul t documented in this encounter Visit Diagnoses Not on filedocumented in this encounter Care Teams Cook Starch Relationship Specialty Start Date End Date Ben Shannon MD PCP - General Family Medicine 11/08/22 documented as of this encounter
--- OUTSIDE RECORDS SUMMARY | 2025-01-01 11:28 | XMS_ITS | Encounter Summary ---
Author Organization [facility] Address [address] [place] [address] Care Team Providers Care Jr. Java Developer Name Role Phone Ben Shannon MD Primary Care Provider [phone] Encounter Details Date Type Department Care Team (Late st Contact Info) Description 01/05/2024 Abstract [facility] [address] [place] [phone] Unallocated, Noms Provider, [address] [place] [address] Social History Tobacco Use Types Packs/Day Years [...] on filedocumented in this encounter Care Teams Jr. Java Developer Relationship Specialty Start Date End Date Ben Shannon MD PCP - General Family Medicine 11/08/22 documented as of this encounter
--- OUTSIDE RECORDS SUMMARY | 2025-01-01 11:28 | XMS_ITS | Clinical Summary ---
Author Organization [facility] Address [address] [place] [address] Care Team Providers Care Senior Cost Analyst Name Role Phone Ben Shannon MD Primary Care Provider [phone] Allergies Active Allergy Reactions Criticality Noted Date Comments Penicillins Rash Low 04/25/2013 Medications latanoprost (Xalatan) 0.005 % ophthalmic solution Instill 1 drop every day by ophthalmic route for 84 days. Active timolol (Timoptic) 0.5 % ophthalmic solution Apply 1 drop every day by ophthalmic route for 90 days. Active aspirin 81 MG EC tablet Take 2 tablets every day by oral route. Active gabapentin (Neurontin) 300 MG capsule Take 1 capsule by mouth in the morning and 1 capsule before bedtime. Active metFORMIN (Glucophage) 500 MG tablet Take 1 tablet by mouth in the morning and 1 tablet before bedtime. Active metoprolol succinate XL (Toprol-XL) 50 MG 24 hr tablet Take 50 mg by mouth in the morning. Active ramipril (Altace) 2.5 MG capsule Take 1 capsule by mouth in the morning. Active simvastatin (Zocor) 20 MG tablet Take 1 tablet by mouth at bedtime. 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 involvement 11/08/2022 Social History Tobacco Use Types Packs/Day Years Used Date Smoking Tobacco: Never Smokeless Tobacco: Never Tobacco Cessation:Counseling Given: Not Answered Comments Unknown Sex and Gender Information Value Date Recorded Sex Assigned at Not on file Legal Sex Female 11:59 AM EDT Gender Identity Not on file Sexual Orientation Not on file Last Filed Vital Signs Vital Sign Reading Time Taken Comments Blood Pressure 127/66 11/08/2022 1:46 PM EDT Pulse 61 11/08/2022 1:46 PM EDT Temperature - - Respiratory Rate - - Oxygen Saturation - - Inhaled Oxygen Concentration - - Weight - - Height - - Body Mass Index - - Plan of Treatment Health Maintenance Due Date Last Done Comments Pneumococcal Vaccine: 65+ Years (1 of 1 - PCV) 991 Influenza Vaccine (#1) 2024 Insurance MEDICARE [facility] Care Teams Senior Cost Analyst Relationship Specialty Start Date End Date Ben Shannon MD PCP - General Family Medicine 11/08/22
--- OUTSIDE RECORDS SUMMARY | 2025-01-01 11:28 | XMS_ITS | Clinical Summary ---
Author Organization [employer] Address [id number] [address] [place] [address] Care Team Providers Care Netting Inspector Name Role Phone No Pcp, No Pcp Primary Care Provider Unavailabl e Allergies Active Allergy Reactions Criticality Noted Date Comments Penicillins Rash Low 04/25/2013 Medications metFORMIN (GLUCOPHAGE) 500 mg tablet Take 2 tablets (1,000 mg total) by mouth daily with breakfast. Active metoprolol succinate XL (TOPROL XL) 50 mg 24 hr tablet Take 1 tablet (50 mg total) by mouth nightly. 4 Active ramipriL (ALTACE) 2.5 mg capsule Take 1 tablet by mouth in the morning. Active simvastatin (ZOCOR) 20 mg tablet Take 1 tablet (20 mg total) by mouth nightly. Active gabapentin (NEURONTIN) 300 mg capsule Take 1 capsule (300 mg total) by mouth in the morning. 4 Active potassium bicarbonate (EFFER-K) 25 MEQ disintegrating tablet Take 1 tablet (25 mEq total) by mouth in the morning and 1 tablet (25 mEq total) before bedtime. Active cholecalciferol, vitamin D3, (VITAMIN D3) 5,000 units capsule Take 1 capsule (5,000 Units total) by mouth in the morning. 3 Active calcium carbonate (OS-GEOVANNA) 600 mg elemental (1,500 mg) tablet Take 1 tablet (600 mg total) by mouth in the morning and 1 tablet (600 mg total) in the evening. Take with meals. Active docusate sodium (COLACE) 100 mg capsule Take 1 capsule (100 mg total) by mouth in the morning and 1 capsule (100 mg total) before bedtime. Active metFORMIN (GLUCOPHAGE) 500 mg tablet Take 1 tablet (500 mg total) by mouth nightly. With evening meal take 1 tablet. Active aspirin 81 mg Take 2 tablets (162 mg total) by mouth in the morning. Do not resume until 10 days following injury 12/24/23.. 4 Active butalbital-acetami nophen-caff (FIORICET, ESGIC) 50-325-40 mg per tablet Take 2 tablets by mouth every 8 (eight) hours as needed for headaches. 30 tablet 4 Active sennosides-docusat e sodium (SENOKOT-S) 8.6-50 mg Take 2 tablets by mouth nightly. 4 Active Active Problems Problem Noted Date Diagnosed Date ICH (intracerebral hemorrhage) 12/14/2023 Social History Tobacco Use Types Packs/Day Years Used Date Smoking Tobacco: Never Smokeless Tobacco: Never Tobacco Cessation:Counseling Given: Not Answered Alcohol Use Standard Drinks/Week Comments Never 0 (1 standard drink = 0.6 oz pur e alcohol) [facility] Utilities Answer Date Recorded In the past 12 months has [employer], [employer], oil, or water urturn threatened to shut off services in your [...] Sign Reading Time Taken Comments Blood Pressure 115/58 12/20/2023 11:12 AM EDT Pulse 70 12/20/2023 11:12 AM EDT Temperature 36.2 C (97.2 F) 12/20/2023 11:11 AM EDT Respiratory Rate 24 12/20/2023 11:12 AM EDT Oxygen Saturation 95% 12/20/2023 7:52 AM EDT Inhaled Oxygen Concentration - - Weight 65.4 kg (144 lb 2.9 oz) 12/15/2023 1:36 A M EDT Height 160 cm (5' 3 ) 12/14/2023 6:15 AM EDT Body Mass Index 25.54 12/14/2023 6:15 AM EDT Plan of Treatment Health Maintenance Due Date Last Done Comments Depression Screening 1952 DTaP,Tdap and Td Vaccines (1 - Tdap) 10/29/1959 Zoster (Shingles) Vaccine (1 of 2) 1990 Fall Risk Screening 2005 Tobacco Screening 12/13/2024 12/14/2023 COVID-19 Vaccine (4 - 2024-2 6 season) 2024 04/03/2021, 09/25/2020, 08/18/2020 Influenza Vaccine 12/17/2024 Goals Goal Patient Goal Type Associated Problems Recent Progress Patient-Stated? Author SNF General Yes Nandini Brown, RN Note: Evaluation of progress towards goal: Patient and family agree to SNF for short term rehab at discharge. Medical Devices Not on file Insurance MEDICARE [employer] Advance Directives * Full Code (Latest Code Status on File) Date Activated Date Inactivated Comments 12/14/2023 6:15 AM 12/20/2023 8:38 PM Care Teams Netting Inspector Relationship Specialty Start Date End Date No Pcp, [place] [address] PCP - General Family Medicine 12/14/23
--- OUTSIDE RECORDS SUMMARY | 2025-01-01 11:28 | XMS_ITS | Encounter Summary ---
Author Organization [employer] Address [id number] [address] [place] [address] Care Team Providers Care Mold Clamper Name Role Phone No Pcp, No Pcp Primary Care Provider Unavailabl e Reason for Visit * Reason Onset Date Comments Consult 12/14/2023 syncope Encounter Details Date Type Department Care Team (Late st Contact Info) Description 12/14/2023 Telephone [employer] [facility] [address] [place] [phone] Leena Cisse Consult (syncope) Social History Tobacco Use Types Packs/Day Years Used Date Smoking Tobacco: Never Smokeless Tobacco: Never Alcohol Use Standard Drinks/Week Comments Never 0 (1 standard drink = 0.6 oz pur e alcohol) [facility] Utilities Answer Date Recorded In the past 12 months has [employer], gas, oil, or water [employer] threatened to shut off services in your [...] Status X 12/16/2023 9:06 AM EDT Duyen Robles, PT * Question Answer Entry Date Author Overall Cognitive Status X 12/14/2023 10:45 AM EDT 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 Room A811. Sent secure chat to Emeka Spivey. documented in this encounter Plan of Treatment Not on file documented as of this encounter Goals Goal Patient Goal Type Associated Problems Recent Progress Patient-Stated? Author SNF General Yes Nandini Brown, RN Note: Evaluation of progress towards goal: Patient and family agree to SNF for short term rehab at discharge. documented as of this encounter Visit Diagnoses Not on filedocumented in this encounter Care Teams Mold Clamper Relationship Specialty Start Date End Date No Pcp, [place] [address] PCP - General Family Medicine 12/14/23 documented as of this encounter
--- OUTSIDE RECORDS SUMMARY | 2025-01-01 11:28 | XMS_ITS | Clinical Summary ---
Author Organization [facility] Address [address] [place] [address] Care Team Providers Care Process Description Writer Name Role Phone Ben Shannon MD Primary Care Provider [phone] Allergies Active Allergy Reactions Criticality Noted Date Comments Penicillins Rash Low 04/25/2013 Medications aspirin 81 mg EC tablet Take 162 mg by mouth 1 (one) time. Active gabapentin (Neurontin) 300 mg capsule gabapentin 300 mg capsule TAKE 1 CAPSULE BY MOUTH TWICE DAILY 9 Active metFORMIN (Glucophage) 500 mg tablet metformin 500 mg tablet TAKE 1 TABLET BY MOUTH TWICE DAILY 9 Active ramipril (Altace) 2.5 mg capsule ramipril 2.5 mg capsule TAKE 1 CAPSULE BY MOUTH EVERY DAY 9 Active simvastatin (Zocor) 20 mg tablet simvastatin 20 mg tablet TAKE 1 TABLET BY MOUTH EVERY night 9 Active potassium bicarbonate (K-Lyte) 25 mEq effervescent tablet Take 25 mEq by mouth in the morning and at bedtime. Active cholecalciferol (Vitamin D-3) 125 MCG (5000 UT) capsule 1 capsule 1 (one) time each day at the same time. 3 Active calcium carbonate 600 mg calcium (1,500 mg) tablet Take 600 mg by mouth in the morning. Active dapagliflozin propanediol (Farxiga) 10 mgIndications:Be nign hypertensive heart disease without congestive heart failure Take 1 tablet (10 mg) by mouth in the morning. 30 tablet 11 5 07/26/19 26 Active metoprolol succinate XL (Toprol-XL) 50 mg 24 hr tabletIndication s:Essential hypertension Take 1 tablet (50 mg) by mouth once daily as directed. 90 tablet 3 Active Active Problems Problem Noted Date Diagnosed Date ICH (intracerebral hemorrhage) 12/14/2023 Acute sinusitis 05/09/2023 05/09/2023 Pseudophakia 12/01/2022 05/09/2023 Advanced atrophic nonexudati ve age-related macular degeneration of both eyes without subfoveal involvement 11/08/2022 05/09/2023 Age-related nuclear cataract of both eyes 202205/09/2023 Primary open angle glaucoma (POAG) of both eyes, mild stage 11/08/2022 05/09/2023 BMI 31.0-31.9,adult 04/22/2022 Bowel trouble 04/22/2022 CAD (coronary artery disease) 04/22/2022 Diverticulosis 04/22/2022 Benign hypertension 04/22/2022 Fibrocystic breast disease 04/22/2022 History of kidney stones 04/22/2022 Kidney stones 04/22/2022 Mixed stress and urge urinary incontinence 04/22 Osteopenia 04/22/2022 Seborrheic keratosis, inflamed 04/22/2022 Spinal stenosis 04/22/2022 Diabetes 04/22/2022 Varicose veins of legs 04/22/2022 Glaucoma 05/30/2012 Herpes zoster 05/30/2012 Hyperlipidemia 05/30/2012 Immunizations Immunization Administration Dates Next Due Moderna SARS-CoV-2 Vaccination 04/03/2021,2020,08/18/2020 Family History Medical History Relation Name Comments Coronary artery disease Father Diabetes Mother Relation Name Status Comments Father Mother Social History Tobacco Use Types Packs/Day Years Used Date Smoking Tobacco: Never Smokeless Tobacco: Never Tobacco Cessation:Counseling Given: Not Answered Alcohol Use Standard Drinks/Week Comments Not Currently 0 (1 standard drink = 0.6 oz pur e alcohol) [place] Safety & Environment Answer Date Rec orded Fear of Current or Ex-Partner Not on file Emotionally Abused Not on file 06/09/2023 Physically Abused Not on file 06/09/2023 Sexually Abused Not on file 06/09/2023 Physically or Sexually Abused Not on file Comments Unknown Sex and Gender Information Value Date Recorded Sex Assigned at Not on file Legal Sex Female 10:35 PM EDT Gender Identity Not on file Sexual Orientation Not on file Last Filed Vital Signs Vital Sign Reading Time Taken Comments Blood Pressure 142/62 07/25/2024 9:17 AM EDT Pulse 51 07/25/2024 9:17 AM EDT Temperature - - Respiratory Rate - - Oxygen Saturation 100% 07/25/2024 9:17 AM EDT Inhaled Oxygen Concentration - - Weight 69.9 kg (154 lb) 07/25/2024 9:17 AM EDT Height 160 cm (5' 3 ) 07/25/2024 9:17 AM EDT Body Mass Index 27.28 07/25/2024 9:17 AM EDT Plan of Treatment Upcoming Encounters Date Type Department Care Team (Late st Contact Info) Description 02/14/2025 10:15 AM EDT Office Visit [facility] [address] [place] [address] Jaime Kelly MD [address] [facility] [place] [phone] Health Maintenance Due Date Last Done Comments Diabetes: Hemoglobin A1C 1940 Medicare Annual Wellness (AWV) 1940 Diabetes: Retinopathy Screening 1950 Depression Screening 1952 Diabetes: Urine Protein Screening 10/29/1959 Pneumococcal Vaccine: 50+ Years (1 of 2 - PCV) 10/29/1959 Adult Tetanus 1962 Zoster Vaccines (1 of 2) 1990 Fall Risk Screening 2005 COVID-19 Vaccine ( season) 2024 04/03/2021, 04/03/2021, 09/25/2020, Additional history exists Influenza Vaccine (#1) 2024 HIB Vaccines Aged Out No longer eligi ble based on patient's age to complete this topic HPV Vaccines Aged Out No longer eligi ble based on patient's age to complete this topic IPV Vaccines Aged Out No longer eligi ble based on patient's age to complete this topic Meningococcal B Vaccine Aged Out No l onger eligible based on patient's age to complete this topic Meningococcal Vaccine Aged Out No kamaljit kenyetta eligible based on patient's age to complete this topic Rotavirus Vaccines Aged Out No longer eligible based on patient's age to complete this topic Insurance MEDICARE [employer] Care Teams Process Description Writer Relationship Specialty Start Date End Date Ben Shannon MD [address] [facility] [place] [address] PCP - General 04/22/22
--- OUTSIDE RECORDS SUMMARY | 2025-01-01 11:28 | XMS_ITS | Clinical Summary ---
Author Organization [facility] Address [address], [address] [place] [address] Care Team Providers Care Head Of Acquisitions Name Role Phone Ben Shannon MD Primary Care Provider [phone] Allergies Active Allergy Reactions Criticality Noted Date Comments Penicillins Rash Low 04/25/2013 Medications No known medications Social History Tobacco Use Types Packs/Day Years Used Date Smoking Tobacco: Never Smokeless Tobacco: Never Alcohol Use Standard Drinks/Week Comments Not Currently 0 (1 standard drink = 0.6 oz pur e alcohol) Comments Unknown Sex and Gender Information Value Date Recorded Sex Assigned at Not on file Legal Sex Female 5:11 PM EST Gender Identity Not on file Sexual Orientation Not on file Last Filed Vital Signs Vital Sign Reading Time Taken Comments Blood Pressure - - Pulse - - Temperature 36.2 C (97.2 F) 11/07/2020 9:09 AM EDT Respiratory Rate - - Oxygen Saturation - - Inhaled Oxygen Concentration - - Weight 79.4 kg (175 lb) 11/07/2020 9:09 AM EDT Height 161.3 cm (5' 3.5 ) 11/07/2020 9:09 AM EDT Body Mass Index 30.51 11/07/2020 9:09 AM EDT Plan of Treatment Not on file Insurance MEDICARE HU[employer] MEDICARE [employer] Care Teams Head Of Acquisitions Relationship Specialty Start Date End Date Ben Shannon MD [address] [place] [address] PCP - General Family Medicine 09/11/20
--- NOTE | 2025-01-01 11:34 | XR_ITS ---
The [address] [address] Patient Name: GREG TODD MRN: [id number] date: 1940 Sex: F Assigned Patient Location: LAB Current Patient Location: LAB Accession/Order Number: [id number] Exam Date: 01/01/2025 11:40 Report Date: 01/01/2025 12:04 At the request of: JENNIFER KC MD Procedure: XR hip RT 2V w/ pelvis CLINICAL DATA: Chronic right hip pain. No reported injury. LUMBAR SPINE -4 views: COMPARISON: 07/17/2020 AP, lateral and both oblique views of the lumbosacral junction were obtained. The bony structures are osteopenic. There is slight levoscoliotic curvature. There are no acute compression fractures. There is still slight anterolisthesis of L3 on L4 and retrolisthesis of L4 on L5. There is disc space narrowing, predominantly at L1-2, L2-3 and the lumbosacral junction. There is moderate multilevel endplate spurring. There is upper lumbar and lower thoracic endplate sclerosis. Lower lumbar facet hypertrophy is present. No obvious pars defect is identified. The sacroiliac joints are maintained. There are no paraspinal soft tissue abnormalities. Atherosclerotic plaque is seen at the aorta. XR/XR lumbar spine min 4V IMPRESSION: OSTEOPENIA, SCOLIOSIS AND DEGENERATIVE CHANGES. RIGHT HIP WITH AP PELVIS - 3 views COMPARISON: 03/26/2024 AP view of the pelvis as well as AP and frog-lateral views of the right hip were obtained. There is osteopenia. No acute fracture or dislocation is identified. The hip joint spaces are maintained. There is no significant marginal spurring. Enthesophytes are present at the iliac crests and greater trochanters. Minor sclerosis is seen at the SI joints. There is levoscoliotic curvature and degenerative change at the lower imaged lumbar spine. No soft tissue abnormalities are present. There is atherosclerotic disease. Multiple hemostasis clips are visualized at the left groin. IMPRESSION: OSTEOPENIA AND DEGENERATIVE CHANGES, DESCRIBED. NO ACUTE BONY FINDINGS. Impression dictated by: Yessica Cartagena M.D. 01/01/2025 12:04 PM Dictation Location: [employer] Electronically authenticated by: [id number] Y Date: 01/01/2025 12:04
--- NOTE | 2025-01-01 11:34 | XR_ITS ---
The [address] [address] Patient Name: GREG TODD MRN: [id number] date: 1940 Sex: F Assigned Patient Location: LAB Current Patient Location: LAB Accession/Order Number: [id number] Exam Date: 01/01/2025 11:40 Report Date: 01/01/2025 12:04 At the request of: JENNIFER KC MD Procedure: XR hip RT 2V w/ pelvis CLINICAL DATA: Chronic right hip pain. No reported injury. LUMBAR SPINE -4 views: COMPARISON: 07/17/2020 AP, lateral and both oblique views of the lumbosacral junction were obtained. The bony structures are osteopenic. There is slight levoscoliotic curvature. There are no acute compression fractures. There is still slight anterolisthesis of L3 on L4 and retrolisthesis of L4 on L5. There is disc space narrowing, predominantly at L1-2, L2-3 and the lumbosacral junction. There is moderate multilevel endplate spurring. There is upper lumbar and lower thoracic endplate sclerosis. Lower lumbar facet hypertrophy is present. No obvious pars defect is identified. The sacroiliac joints are maintained. There are no paraspinal soft tissue abnormalities. Atherosclerotic plaque is seen at the aorta. XR/XR hip RT 2V w/ pelvis IMPRESSION: OSTEOPENIA, SCOLIOSIS AND DEGENERATIVE CHANGES. RIGHT HIP WITH AP PELVIS - 3 views COMPARISON: 03/26/2024 AP view of the pelvis as well as AP and frog-lateral views of the right hip were obtained. There is osteopenia. No acute fracture or dislocation is identified. The hip joint spaces are maintained. There is no significant marginal spurring. Enthesophytes are present at the iliac crests and greater trochanters. Minor sclerosis is seen at the SI joints. There is levoscoliotic curvature and degenerative change at the lower imaged lumbar spine. No soft tissue abnormalities are present. There is atherosclerotic disease. Multiple hemostasis clips are visualized at the left groin. IMPRESSION: OSTEOPENIA AND DEGENERATIVE CHANGES, DESCRIBED. NO ACUTE BONY FINDINGS. Impression dictated by: Yessica Cartagena M.D. 01/01/2025 12:04 PM Dictation Location: [employer] Electronically authenticated by: [id number] Y Date: 01/01/2025 12:04
--- OUTSIDE RECORDS SUMMARY | 2025-01-01 12:28 | XMS_ITS | CCD ---
Author Organization [facility] Care Team Providers Care Counter Pocket Trimmer Name Role Phone Jennifer Kc Primary Care Physician [phone] [place] ., DR RODRIGUEZ Consulting Unavailable DEVINE ., DR PACK Attending Unavailable DEVINE ., DR PACK Admitting Unavailable HOY ., DR RODRIGUEZ Primary Care Unavailable LEBANON, DR SHEMAR Granados Consulting Unavailable HOY ., [...] [penicillin] Drug Allergy Eruption of skin (disorder) [facility] [place] (4 sources) Penicillins; Translations: [PENICILLINS] Drug allergy (disorder) 4 [facility] (1 source) No Known Medication Allergies; Translations: [No Known Medication Allergies] Propensity to adverse reactions (disorder) [facility] Repository (1 source) Penicillins Propensity to adverse reactions to drug 4 [facility] Medications Current Medications Medication Drug Class(es) Dates [...] Ordered docusate sodium 50 mg / sennosides, correction 8.6 mg oral tablet (3 sources) Start: [...] 1400 Start: 01-13-2023 take 1 capsule by [facility] in the morning cholecalciferol, vitamin D3, [...] day(s), # 180 tab(s), Refills(s) 3, Pharmacy: [facility]/pharmacy #[id number], 161.3, cm, 04/21/21 14:11:00 [...] BID, # 180 tab(s), Refills(s) 3, Pharmacy: [facility]/pharmacy #[id number], 161.3, cm, 04/02/22 8:19:00 [...] Status: Ordered take 2 tablets by mo [facility] once daily at breakfast metFORMIN (GLUCOPHAGE) 500 [...] Coronary arteriosclerosis; Translations: [Atherosclerotic heart disease of [place] coronary artery without angina pectoris] Onset: 01-22-2022 [...] Range Facility Office Visiton 07-25-2024 Follow-up visit [id number] Kelin Rosenberg 1940 F Date Provider Department Center 07/25/2024 Melba-GARIMA GRIGGS CARD [facility] Family History Problem Relation Age of Onset Diabetes Mother Coronary artery disease Father Family Status - Relation Status Age at Mother Father Level of Service:69497 [place] OFFICE/OUTPATIENT ESTABLISHED MOD MDM 30 MIN Normal [facility] Office Visiton 06-04-2024 Follow-up visit [id number] Kelin Rosenberg 1940 F Date Provider Department Center 06/04/2024 Melba-JACINTAALINEGARIMA WELCH CARD [facility] Family History Problem Relation Age of Onset Diabetes Mother Coronary artery disease Father Family Status - Relation Status Age at Mother Father Level of Service:98320 [place] OFFICE/OUTPATIENT ESTABLISHED MOD MDM 30 MIN Normal [facility] Ambulatory Visit Summaryon 1 06-03-2023 Ambulatory [...] Urology [address], [place] [address]- Medications What How Much When Instructions Unchanged [...] calcium a d (more content not included)... [facility] Reminderson 04-02-2024 Reminders Reminders --- From: Selma Waite To: EU - Administrative; Sent: 04/02/2024 11:19:40 EST Show up: 07/17/2025 11:19:00 EDT Subject: 2 yr F/U Due Date/Time: 04/01/2026 11:19:00 EST Reminder/Recall Patient needs scheduled for a 2 yr f/u with a KUB Normal [facility] Urology Office/Clinic Noteon 04-02-2024 Urology Office/Clinic Note [...] [facility] [address], [place] [address]- Additional Instructions: 2 yr with KUB Patient [...] 09/25/2020 Record (more content not included)... Normal [facility] Comment on above: Result Comment: Elec tronically Signed By: Ruiz DEVINE MD R\.br\Date and Time Signed: 04/02/24 11:13 EST\.br\Electronically Co-Signed By: Gracia Nunn\.br\Date and Time Co-Signed: 04/02/24 11:12 EST BASIC METABOLIC PANLon 12-19 Anion gap [Moles/Vol] 7 mmol/L Normal 5-15 [facility] Comment on above: Performed By: #### C MP, CBCA, 1798-8, 29405-5, 5643-2, 3040-3, PINR, 95754-3 #### [facility] ([id number]) [address] [place] [address] Calcium [Mass/Vol] 9.3 mg/dL Normal 8.5-10.5 [facility] Comment on above: Performed By: #### C MP, CBCA, 1798-8, 44264-1, 5643-2, 3040-3, PINR, 91351-8 #### [facility] ([id number]) [address], [address] [place] [address] Chloride [Moles/Vol] 104 mmol/L Normal 98-109 [facility] Comment on above: Performed By: #### C MP, CBCA, 1798-8, 77942-4, 5643-2, 3040-3, PINR, 02337-6 #### [facility] ([id number]) [address], [address] [place] [address] CO2 [Moles/Vol] 26 mmol/L Normal 22-32 [facility] Comment on above: Performed By: #### C MP, CBCA, 1798-8, 33557-2, 5643-2, 3040-3, PINR, 41951-7 #### [facility] ([id number]) [address], [address] [place] [address] Creatinine [Mass/Vol] 0.59 mg/dL Normal 0.40-1.00 [facility] Comment on above: Result Comment: METH OD TRACEABLE TO IDMS STANDARD Performed By: #### C MP, CBCA, 1798-8, 16526-2, 5643-2, 3040-3, PINR, 80684-1 #### [facility] ([id number]) [address], [address] [place] [address] GFR/1.73 sq M.predicted among non-blacks MDRD (S/P/Bld) [Vol rate/Area] 89 mL/min/{1.73_m2} Normal >59 [facility] Comment on above: Result Comment: Reported eGFR is based on the CKD-EPI 2020 equation that does not use a race coefficient. Performed By: #### C MP, CBCA, 1798-8, 76654-2, 5643-2, 3040-3, PINR, 54204-8 #### [facility] ([id number]) [address], [address] [place] [address] Glucose [Mass/Vol] 125 mg/dL High 65-99 [facility] Comment on above: Performed By: #### C MP, CBCA, 1798-8, 22540-8, 5643-2, 3040-3, PINR, 14653-1 #### [facility] ([id number]) [address], [address] [address] Potassium [Moles/Vol] 3.9 mmol/L Normal 3.5-5.0 [facility] Comment on above: Performed By: #### C MP, CBCA, 1798-8, 98264-9, 5643-2, 3040-3, PINR, 70466-6 #### [facility] ([id number]) [address], [address] [address] Sodium [Moles/Vol] 137 mmol/L Normal 134-146 [facility] Comment on above: Performed By: #### C MP, CBCA, 1798-8, 96001-1, 5643-2, 3040-3, PINR, 51025-1 #### [facility] ([id number]) [address], [address] [address] Urea nitrogen [Mass/Vol] 20 mg/dL Normal 5-27 [facility] Comment on above: Performed By: #### C MP, CBCA, 1798-8, 33462-6, 5643-2, 3040-3, PINR, 96622-5 #### [facility] ([id number]) [address], [address] [address] Basic Metabolic Panelon 09-0 Anion gap [Moles/Vol] 7 mmol/L 5 - 15 mmol/L [facility] Calcium [Mass/Vol] 9.3 mg/dL 8.5 - 10. 5 mg/dL [facility] Chloride [Moles/Vol] 104 mmol/L 98 - 10 9 mmol/L [facility] CO2 [Moles/Vol] 26 mmol/L 22 - 32 mmol/L [facility] Creatinine [Mass/Vol] 0.59 mg/dL 0.40 - 1.00 mg/dL [facility] Comment on above: METHOD TRACEABLE TO IDMS STANDARD eGFR (CKD-EPI)non-race dependent 89 - PINF [facility] Comment on above: Reported eGFR is based on the CKD-EPI 2020 equation that does not use a race coefficient. Glucose [Mass/Vol] 125 mg/dL High 65 - 99 mg/dL [facility] Interpretation and review of laboratory results Abnormal [facility] Potassium [Moles/Vol] 3.9 mmol/L 3.5 - 5.0 mmol/L [facility] Sodium [Moles/Vol] 137 mmol/L 134 - 146 mmol/L [facility] Urea nitrogen [Mass/Vol] 20 mg/dL 5 - 27 mg/dL [facility] CBC AND AUTO DIFFon 12-20-19 24 ABSOLUTE BASOPHIL 0.0 X10E9/L Normal 0.0-0.2 [facility] Comment on above: Performed By: #### C MP, CBCA, 8-8, 37037-6, 5643-2, 3040-3, PINR, 10041-0 #### [facility] ([id number]) [address], [address] [place] [address] ABSOLUTE NEUTROPHIL 4.6 X10E9/L Normal 1.5-6.6 [facility] Comment on above: Performed By: #### C MP, CBCA, 1797-8, 98050-0, 5643-2, 3040-3, PINR, 22697-9 #### [facility] ([id number]) [address], [address] [place] [address] Basophils/100 WBC (Bld) 0.3 % Normal [facility] Comment on above: Performed By: #### C MP, CBCA, 1797-8, 42413-2, 5643-2, 3040-3, PINR, 44463-4 #### [facility] ([id number]) [address], [address] [place] [address] Eosinophils (Bld) [#/Vol] 0.2 10*3/uL Normal 0.0-0.4 [facility] Comment on above: Performed By: #### C MP, CBCA, 1797-8, 05422-3, 5643-2, 3040-3, PINR, 68287-3 #### [facility] ([id number]) [address] [place] [address] Eosinophils/100 WBC (Bld) 3.0 % Normal [facility] Comment on above: Performed By: #### C MP, CBCA, 1798-8, 94576-1, 5643-2, 3040-3, PINR, 07648-4 #### [facility] ([id number]) [address] [address] [place] [address] Erythrocyte distribution width (RBC) [Ratio] 14.7 % Normal 11.5-15.0 [facility] Comment on above: Performed By: #### C MP, CBCA, 1798-8, 60097-0, 5643-2, 3040-3, PINR, 98001-1 #### [facility] ([id number]) [address] [address] Hematocrit (Bld) [Volume fraction] 36.5 % Normal 35-47 [facility] Comment on above: Performed By: #### C MP, CBCA, 8-8, 33695-5, 5643-2, 3040-3, PINR, 69396-5 #### [facility] ([id number]) [address] [address] [address] [place] [address] Hemoglobin (Bld) [Mass/Vol] 12.7 g/dL Normal 11.7-15. 5 [facility] Comment on above: Performed By: #### C MP, CBCA, 1798-8, 63318-1, 5643-2, 3040-3, PINR, 46819-8 #### [facility] ([id number]) [address] [address] Lymphocytes (Bld) [#/Vol] 1.6 10*3/uL Normal 1.0-3.5 [facility] Comment on above: Performed By: #### C MP, CBCA, 1798-8, 70176-7, 5643-2, 3040-3, PINR, 84034-6 #### [facility] ([id number]) [address], [address] [place] [address] Lymphocytes/100 WBC (Bld) 22.4 % Normal [facility] Comment on above: Performed By: #### C MP, CBCA, 1798-8, 60620-2, 5643-2, 3040-3, PINR, 33434-9 #### [facility] ([id number]) [address], [address] [place] [address] MCH (RBC) [Entitic mass] 31.3 pg Normal 27-34 [facility] Comment on above: Performed By: #### C MP, CBCA, 1798-8, 54949-7, 5643-2, 3040-3, PINR, 88373-6 #### [facility] ([id number]) [address], [address] [place] [address] MCHC (RBC) [Mass/Vol] 34.8 g/dL Normal 32-36 [facility] Comment on above: Performed By: #### C MP, CBCA, 1798-8, 67348-8, 5643-2, 3040-3, PINR, 20513-0 #### [facility] ([id number]) [address], [address] [place] [address] MCV (RBC) [Entitic vol] 90 fL Normal 80-100 [facility] Comment on above: Performed By: #### C MP, CBCA, 1798-8, 02523-0, 5643-2, 3040-3, PINR, 15082-4 #### [facility] ([id number]) [address], [address] [place] [address] Monocytes (Bld) [#/Vol] 0.6 10*3/uL Normal 0-0.9 [facility] Comment on above: Performed By: #### C MP, CBCA, 1798-8, 00140-3, 5643-2, 3040-3, PINR, 19031-9 #### [facility] ([id number]) [address], [address] [place] [address] Monocytes/100 WBC (Bld) 8.5 % Normal [facility] Comment on above: Performed By: #### C MP, CBCA, 1798-8, 12840-8, 5643-2, 3040-3, PINR, 87720-9 #### [facility] ([id number]) [address] [facility] [address] [place] [address] Neutrophils/100 WBC (Bld) 65.8 % Normal [facility] Comment on above: Performed By: #### C MP, CBCA, 8-8, 62492-6, 5643-2, 3040-3, PINR, 12214-1 #### [facility] ([id number]) [address], [address] [place] [address] Platelet mean volume (Bld) [Entitic vol] 7.1 fL Normal 7-12 [facility] Comment on above: Performed By: #### C MP, CBCA, 1798-8, 24766-8, 5643-2, 3040-3, PINR, 50302-6 #### [facility] ([id number]) [address], [address] [place] [address] Platelets (Bld) [#/Vol] 264 10*3/uL Normal 150-450 [facility] Comment on above: Performed By: #### C MP, CBCA, 1798-8, 29482-1, 5643-2, 3040-3, PINR, 21973-3 #### [facility] ([id number]) [address], [address] [place] [address] RBC COUNT 4.05 X10E12/L Normal 3.80-5.20 [facility] Comment on above: Performed By: #### C MP, CBCA, 1798-8, 10032-2, 5643-2, 3040-3, PINR, 90178-2 #### [facility] ([id number]) [address], [address] [place] [address] WBC (Bld) [#/Vol] 7.0 10*3/uL Normal 4.0-11.0 [facility] Comment on above: Performed By: #### C MP, CBCA, 1798-8, 22074-9, 5643-2, 3040-3, PINR, 15391-8 #### [facility] ([id number]) [address] [place] [address] CBC auto differentialon 09-0 Basophils (Bld) [#/Vol] 0.0 10*3/uL [facility] Basophils/100 WBC (Bld) 0.3 % [facility] Eosinophils (Bld) [#/Vol] 0.2 10*3/uL [facility] Eosinophils/100 WBC (Bld) 3.0 % [facility] Erythrocyte distribution width (RBC) [Ratio] 14.7 % 11.5 - 15.0 % [facility] Hematocrit (Bld) [Volume fraction] 36.5 % 35 - 47 % [facility] Hemoglobin (Bld) [Mass/Vol] 12.7 g/dL 11.7 - 15.5 g/dL [facility] Lymphocytes (Bld) [#/Vol] 1.6 10*3/uL [facility] Lymphocytes/100 WBC (Bld) 22.4 % [facility] MCH (RBC) [Entitic mass] 31.3 pg 27 - 34 pg [facility] MCHC (RBC) [Mass/Vol] 34.8 g/dL 32 - 3 6 g/dL [facility] MCV (RBC) [Entitic vol] 90 fL 80 - 100 fL [facility] Monocytes (Bld) [#/Vol] 0.6 10*3/uL [facility] Monocytes/100 WBC (Bld) 8.5 % P [facility] Neutrophils (Bld) [#/Vol] 4.6 10*3/uL [facility] Neutrophils/100 WBC (Bld) 65.8 % [facility] Platelet mean volume (Bld) [Entitic vol] 7.1 fL 7 - 12 fL [facility] Platelets (Bld) [#/Vol] 264 10*3/uL [facility] RBC (Bld) [#/Vol] 4.05 10*6/uL [facility] WBC corrected for nucl RBC Auto (Bld) [#/Vol] 7.0 [facility] Glucose Glucometer (BldC) [M ass/Vol]on 12-20-2023 Glucose [Mass/Vol] 130 mg/dL High 65 - 99 mg/dL [facility] Interpretation and review of laboratory results Abnormal [facility] Glucose [Mass/Vol] 130 mg/dL High 65-99 [facility] Glucose [Mass/Vol] 136 mg/dL High 65 - 99 mg/dL [facility] Interpretation and review of laboratory results Abnormal [facility] Glucose [Mass/Vol] 136 mg/dL High 65-99 [facility] BASIC METABOLIC PANLon 12-18 Anion gap [Moles/Vol] 10 mmol/L Normal 5-15 [facility] Comment on above: Performed By: #### C MP, CBCA, 1798-8, 84121-5, 5643-2, 3040-3, PINR, 37275-5 #### [facility] ([id number]) [address] [place] [address] Calcium [Mass/Vol] 9.3 mg/dL Normal 8.5-10.5 [facility] Comment on above: Performed By: #### C MP, CBCA, 1798-8, 63819-4, 5643-2, 3040-3, PINR, 36204-9 #### [facility] ([id number]) [address], [address] [place] [address] Chloride [Moles/Vol] 104 mmol/L Normal 98-109 [facility] Comment on above: Performed By: #### C MP, CBCA, 1798-8, 34962-2, 5643-2, 3040-3, PINR, 73386-8 #### [facility] ([id number]) [address], [address] [place] [address] CO2 [Moles/Vol] 25 mmol/L Normal 22-32 [facility] Comment on above: Performed By: #### C MP, CBCA, 1798-8, 25794-5, 5643-2, 3040-3, PINR, 74818-3 #### [facility] ([id number]) [address], [address] [place] [address] Creatinine [Mass/Vol] 0.58 mg/dL Normal 0.40-1.00 [facility] Comment on above: Result Comment: METH OD TRACEABLE TO IDMS STANDARD Performed By: #### C MP, CBCA, 8-8, 95191-9, 5643-2, 3040-3, PINR, 61240-6 #### [facility] ([id number]) [address], [address] [place] [address] GFR/1.73 sq M.predicted among non-blacks MDRD (S/P/Bld) [Vol rate/Area] 90 mL/min/{1.73_m2} Normal >59 [facility] Comment on above: Result Comment: Reported eGFR is based on the CKD-EPI 2020 equation that does not use a race coefficient. Performed By: #### C MP, CBCA, 1798-8, 14253-8, 5643-2, 3040-3, PINR, 26058-9 #### [facility] ([id number]) [address], [address] [place] [address] Glucose [Mass/Vol] 105 mg/dL High 65-99 [facility] Comment on above: Performed By: #### C MP, CBCA, 1798-8, 43583-2, 5643-2, 3040-3, PINR, 15794-4 #### [facility] ([id number]) [address], [address] [place] [address] Potassium [Moles/Vol] 4.0 mmol/L Normal 3.5-5.0 [facility] Comment on above: Result Comment: SPEC IMEN HEMOLYZED, RESULTS INCREASED MODERATELY HEMOLYZED Performed By: #### C MP, CBCA, 1798-8, 12735-1, 5643-2, 3040-3, PINR, 53473-0 #### [facility] ([id number]) [address], [address] [place] [address] Sodium [Moles/Vol] 139 mmol/L Normal 134-146 [facility] Comment on above: Performed By: #### C MP, CBCA, 1798-8, 75168-3, 5643-2, 3040-3, PINR, 25463-7 #### [facility] ([id number]) [address], [address] [place] [address] Urea nitrogen [Mass/Vol] 17 mg/dL Normal 5-27 [facility] Comment on above: Performed By: #### C MP, CBCA, 1798-8, 94851-5, 5643-2, 3040-3, PINR, 02282-8 #### [facility] ([id number]) [address], [address] [place] [address] Basic Metabolic Panelon 09-0 -2023 Anion gap [Moles/Vol] 10 mmol/L 5 - 15 mmol/L [facility] Calcium [Mass/Vol] 9.3 mg/dL 8.5 - 10. 5 mg/dL [facility] Chloride [Moles/Vol] 104 mmol/L 98 - 10 9 mmol/L [facility] CO2 [Moles/Vol] 25 mmol/L 22 - 32 mmol/L [facility] Creatinine [Mass/Vol] 0.58 mg/dL 0.40 - 1.00 mg/dL [facility] Comment on above: METHOD TRACEABLE TO IDIA STANDARD eGFR (CKD-EPI)non-race dependent 90 - PINF [facility] Comment on above: Reported eGFR is based on the CKD-EPI 2020 equation that does not use a race coefficient. Glucose [Mass/Vol] 105 mg/dL High 65 - 99 mg/dL [facility] Interpretation and review of laboratory results Abnormal [facility] Potassium [Moles/Vol] 4.0 mmol/L 3.5 - 5.0 mmol/L [facility] Comment on above: SPECIMEN HEMOLYZED, RESULTS INCREASED MODERATELY HEMOLYZED Sodium [Moles/Vol] 139 mmol/L 134 - 146 mmol/L [facility] Urea nitrogen [Mass/Vol] 17 mg/dL 5 - 27 mg/dL [facility] CBC AND AUTO DIFFon 12-19-19 24 ABSOLUTE BASOPHIL 0.0 X10E9/L Normal 0.0-0.2 [facility] Comment on above: Performed By: #### C MP, CBCA, 1798-8, 58415-0, 5643-2, 3040-3, PINR, 13330-3 #### [facility] ([id number]) [address], [address] [place] [address] ABSOLUTE NEUTROPHIL 3.5 X10E9/L Normal 1.5-6.6 [facility] Comment on above: Performed By: #### C MP, CBCA, 1798-8, 61064-1, 5643-2, 3040-3, PINR, 65827-1 #### [facility] ([id number]) [address], [address] [place] [address] Basophils/100 WBC (Bld) 0.5 % Normal [facility] Comment on above: Performed By: #### C MP, CBCA, 1798-8, 74306-0, 5643-2, 3040-3, PINR, 89896-7 #### [facility] ([id number]) [address] [address] [place] [address] Eosinophils (Bld) [#/Vol] 0.2 10*3/uL Normal 0.0-0.4 [facility] Comment on above: Performed By: #### C MP, CBCA, 1798-8, 91375-3, 5643-2, 3040-3, PINR, 37494-0 #### [facility] ([id number]) [address] [address] Eosinophils/100 WBC (Bld) 3.3 % Normal [facility] Comment on above: Performed By: #### C MP, CBCA, 8-8, 88789-4, 5643-2, 3040-3, PINR, 11231-5 #### [facility] ([id number]) [address] [address] Erythrocyte distribution width (RBC) [Ratio] 14.6 % Normal 11.5-15.0 [facility] Comment on above: Performed By: #### C MP, CBCA, 8-8, 02680-7, 5643-2, 3040-3, PINR, 92746-0 #### [facility] ([id number]) [address] [address] Hematocrit (Bld) [Volume fraction] 35.6 % Normal 35-47 [facility] Comment on above: Performed By: #### C MP, CBCA, 1798-8, 66915-3, 5643-2, 3040-3, PINR, 41821-8 #### [facility] ([id number]) [address] [address] [place] [address] Hemoglobin (Bld) [Mass/Vol] 12.1 g/dL Normal 11.7-15. 5 [facility] Comment on above: Performed By: #### C MP, CBCA, 1798-8, 64444-4, 5643-2, 3040-3, PINR, 43964-9 #### [facility] ([id number]) [address] [address] Lymphocytes (Bld) [#/Vol] 2.0 10*3/uL Normal 1.0-3.5 [facility] Comment on above: Performed By: #### C MP, CBCA, 1798-8, 18755-7, 5643-2, 3040-3, PINR, 34655-2 #### [facility] ([id number]) [address] [address] Lymphocytes/100 WBC (Bld) 31.9 % Normal [facility] Comment on above: Performed By: #### C MP, CBCA, 1798-8, 04874-0, 5643-2, 3040-3, PINR, 32102-1 #### [facility] ([id number]) [address] [address] MCH (RBC) [Entitic mass] 30.2 pg Normal 27-34 [facility] Comment on above: Performed By: #### C MP, CBCA, 1798-8, 48191-9, 5643-2, 3040-3, PINR, 15388-7 #### [facility] ([id number]) [address] [address] MCHC (RBC) [Mass/Vol] 33.9 g/dL Normal 32-36 [facility] Comment on above: Performed By: #### C MP, CBCA, 1798-8, 28855-4, 5643-2, 3040-3, PINR, 32958-5 #### [facility] ([id number]) [address] [address] [place] [address] MCV (RBC) [Entitic vol] 89 fL Normal 80-100 [facility] Comment on above: Performed By: #### C MP, CBCA, 1798-8, 57552-8, 5643-2, 3040-3, PINR, 99443-5 #### [facility] ([id number]) [address] [place] [address] Monocytes (Bld) [#/Vol] 0.4 10*3/uL Normal 0-0.9 [facility] [facility] [place] Comment on above: Performed By: #### C MP, CBCA, 1798-8, 17398-7, 5643-2, 3040-3, PINR, 10473-5 #### [facility] ([id number]) [address], [facility] [address] [place] [address] Monocytes/100 WBC (Bld) 7.2 % Normal [facility] Comment on above: Performed By: #### C MP, CBCA, 1798-8, 52632-3, 5643-2, 3040-3, PINR, 20498-5 #### [facility] ([id number]) [address], [address] [place] [address] Neutrophils/100 WBC (Bld) 57.1 % Normal [facility] [place] Comment on above: Performed By: #### C MP, CBCA, 1798-8, 31179-4, 5643-2, 3040-3, PINR, 85118-2 #### [facility] ([id number]) [address], [address] [place] [address] Platelet mean volume (Bld) [Entitic vol] 7.3 fL Normal 7-12 [facility] [place] Comment on above: Performed By: #### C MP, CBCA, 1798-8, 64353-9, 5643-2, 3040-3, PINR, 91754-6 #### [facility] ([id number]) [address], [address] [place] [address] Platelets (Bld) [#/Vol] 264 10*3/uL Normal 150-450 [facility] [place] Comment on above: Performed By: #### C MP, CBCA, 1798-8, 50892-7, 5643-2, 3040-3, PINR, 03225-6 #### [facility] ([id number]) [address], [address] [place] [address] RBC COUNT 4.00 X10E12/L Normal 3.80-5.20 [facility] [place] Comment on above: Performed By: #### C MP, CBCA, 1798-8, 27083-8, 5643-2, 3040-3, PINR, 92630-7 #### [facility] ([id number]) [address], [address] [place] [address] WBC (Bld) [#/Vol] 6.1 10*3/uL Normal 4.0-11.0 [facility] Comment on above: Performed By: #### C MP, CBCA, 1798-8, 43361-5, 5643-2, 3040-3, PINR, 23059-3 #### [facility] ([id number]) [address], [address] [address] CBC auto differentialon 09-0 -2023 Basophils (Bld) [#/Vol] 0.0 10*3/uL [facility] Basophils/100 WBC (Bld) 0.5 % [facility] Eosinophils (Bld) [#/Vol] 0.2 10*3/uL [facility] Eosinophils/100 WBC (Bld) 3.3 % [facility] Erythrocyte distribution width (RBC) [Ratio] 14.6 % 11.5 - 15.0 % [facility] Hematocrit (Bld) [Volume fraction] 35.6 % 35 - 47 % [facility] Hemoglobin (Bld) [Mass/Vol] 12.1 g/dL 11.7 - 15.5 g/dL [facility] Lymphocytes (Bld) [#/Vol] 2.0 10*3/uL [facility] Lymphocytes/100 WBC (Bld) 31.9 % [facility] MCH (RBC) [Entitic mass] 30.2 pg 27 - 34 pg [facility] MCHC (RBC) [Mass/Vol] 33.9 g/dL 32 - 3 6 g/dL [facility] MCV (RBC) [Entitic vol] 89 fL 80 - 100 fL [facility] Monocytes (Bld) [#/Vol] 0.4 10*3/uL [facility] Monocytes/100 WBC (Bld) 7.2 % P [facility] Neutrophils (Bld) [#/Vol] 3.5 10*3/uL [facility] Neutrophils/100 WBC (Bld) 57.1 % [facility] Platelet mean volume (Bld) [Entitic vol] 7.3 fL 7 - 12 fL [facility] Platelets (Bld) [#/Vol] 264 10*3/uL [facility] RBC (Bld) [#/Vol] 4.00 10*6/uL [facility] WBC corrected for nucl RBC Auto (Bld) [#/Vol] 6.1 [facility] Glucose Glucometer (dC) [M ass/Vol]on 12-19-2023 Glucose [Mass/Vol] 182 mg/dL High 65 - 99 mg/dL [facility] Interpretation and review of laboratory results Abnormal [facility] Glucose [Mass/Vol] 182 mg/dL High 65-99 [facility] Glucose [Mass/Vol] 147 mg/dL High 65 - 99 mg/dL [facility] Interpretation and review of laboratory results Abnormal [facility] Glucose [Mass/Vol] 147 mg/dL High 65-99 [facility] Glucose [Mass/Vol] 192 mg/dL High 65 - 99 mg/dL [facility] Interpretation and review of laboratory results Abnormal [facility] Glucose [Mass/Vol] 192 mg/dL High 65-99 [facility] Glucose [Mass/Vol] 122 mg/dL High 65 - 99 mg/dL [facility] Interpretation and review of laboratory results Abnormal [facility] Glucose [Mass/Vol] 122 mg/dL High 65-99 [facility] BASIC METABOLIC PANLon 12-17 Anion gap [Moles/Vol] 10 mmol/L Normal 5-15 [facility] Comment on above: Performed By: #### C MP, CBCA, 1798-8, 17866-9, 5643-2, 3040-3, PINR, 63775-0 #### [facility] ([id number]) [address], [address] [place] [address] Calcium [Mass/Vol] 9.5 mg/dL Normal 8.5-10.5 [facility] Comment on above: Performed By: #### C MP, CBCA, 1798-8, 81215-8, 5643-2, 3040-3, PINR, 15074-9 #### [facility] ([id number]) [address] [place] [address] Chloride [Moles/Vol] 104 mmol/L Normal 98-109 [facility] Comment on above: Performed By: #### C MP, CBCA, 1798-8, 11839-1, 5643-2, 3040-3, PINR, 99629-1 #### [facility] ([id number]) [address], [address] [place] [address] CO2 [Moles/Vol] 27 mmol/L Normal 22-32 [facility] [place] Comment on above: Performed By: #### C MP, CBCA, 1798-8, 06703-8, 5643-2, 3040-3, PINR, 36486-3 #### [facility] ([id number]) [address], [address] [place] [address] Creatinine [Mass/Vol] 0.66 mg/dL Normal 0.40-1.00 [facility] Comment on above: Result Comment: METH OD TRACEABLE TO IDMS STANDARD Performed By: #### C MP, CBCA, 1798-8, 39103-0, 5643-2, 3040-3, PINR, 24776-7 #### [facility] ([id number]) [address] [address] GFR/1.73 sq M.predicted among non-blacks MDRD (S/P/Bld) [Vol rate/Area] 87 mL/min/{1.73_m2} Normal >59 [facility] [place] Comment on above: Result Comment: Reported eGFR is based on the CKD-EPI 2020 equation that does not use a race coefficient. Performed By: #### C MP, CBCA, 1798-8, 45028-4, 5643-2, 3040-3, PINR, 84506-6 #### [facility] ([id number]) [address] [address] Glucose [Mass/Vol] 94 mg/dL Normal 65-99 [facility] Comment on above: Performed By: #### C MP, CBCA, 1798-8, 78327-2, 5643-2, 3040-3, PINR, 21858-0 #### [facility] ([id number]) [address] [address] Potassium [Moles/Vol] 3.9 mmol/L Normal 3.5-5.0 [facility] Comment on above: Performed By: #### C MP, CBCA, 1798-8, 36393-6, 5643-2, 3040-3, PINR, 14439-1 #### [facility] ([id number]) [address] [address] Sodium [Moles/Vol] 141 mmol/L Normal 134-146 [facility] Comment on above: Performed By: #### C MP, CBCA, 1798-8, 52187-6, 5643-2, 3040-3, PINR, 16471-9 #### [facility] ([id number]) [address], [address] [place] [address] Urea nitrogen [Mass/Vol] 17 mg/dL Normal 5-27 [facility] [place] Comment on above: Performed By: #### C MP, CBCA, 1798-8, 83362-1, 5643-2, 3040-3, PINR, 95817-2 #### [facility] ([id number]) [address], [address] [place] [address] Basic Metabolic Panelon 09- Anion gap [Moles/Vol] 10 mmol/L 5 - 15 mmol/L [facility] Calcium [Mass/Vol] 9.5 mg/dL 8.5 - 10. 5 mg/dL [facility] Chloride [Moles/Vol] 104 mmol/L 98 - 10 9 mmol/L [facility] CO2 [Moles/Vol] 27 mmol/L 22 - 32 mmol/L [facility] Creatinine [Mass/Vol] 0.66 mg/dL 0.40 - 1.00 mg/dL [facility] Comment on above: METHOD TRACEABLE TO IDIA STANDARD eGFR (CKD-EPI)non-race dependent 87 - PINF [facility] Comment on above: Reported eGFR is based on the CKD-EPI 2020 equation that does not use a race coefficient. Glucose [Mass/Vol] 94 mg/dL 65 - 99 mg/dL [facility] Potassium [Moles/Vol] 3.9 mmol/L 3.5 - 5.0 mmol/L [facility] Sodium [Moles/Vol] 141 mmol/L 134 - 146 mmol/L [facility] Urea nitrogen [Mass/Vol] 17 mg/dL 5 - 27 mg/dL [facility] CBC AND AUTO DIFFon 12-18-19 24 ABSOLUTE BASOPHIL 0.0 X10E9/L Normal 0.0-0.2 [facility] Comment on above: Performed By: #### C MP, CBCA, 1798-8, 46338-4, 5643-2, 3040-3, PINR, 19111-4 #### [facility] ([id number]) [address], [address] [place] [address] ABSOLUTE NEUTROPHIL 3.9 X10E9/L Normal 1.5-6.6 [facility] Comment on above: Performed By: #### C MP, CBCA, 1798-8, 05152-0, 5643-2, 3040-3, PINR, 70861-5 #### [facility] ([id number]) [address], [address] [place] [address] Basophils/100 WBC (Bld) 0.5 % Normal [facility] Comment on above: Performed By: #### C MP, CBCA, 1798-8, 07251-6, 5643-2, 3040-3, PINR, 08264-1 #### [facility] ([id number]) [address], [address] [place] [address] Eosinophils (Bld) [#/Vol] 0.3 10*3/uL Normal 0.0-0.4 [facility] [place] Comment on above: Performed By: #### C MP, CBCA, 8-8, 74315-4, 5643-2, 3040-3, PINR, 56471-2 #### [facility] ([id number]) [address] [address] [place] [address] Eosinophils/100 WBC (Bld) 3.6 % Normal [facility] [place] Comment on above: Performed By: #### C MP, CBCA, 1798-8, 37405-1, 5643-2, 3040-3, PINR, 96831-3 #### [facility] ([id number]) [address] [address] [place] [address] Erythrocyte distribution width (RBC) [Ratio] 14.5 % Normal 11.5-15.0 [facility] [place] Comment on above: Performed By: #### C MP, CBCA, 1798-8, 62488-3, 5643-2, 3040-3, PINR, 04193-4 #### [facility] ([id number]) [address], [facility] [address] [place] [address] Hematocrit (Bld) [Volume fraction] 36.7 % Normal 35-47 [facility] [place] Comment on above: Performed By: #### C MP, CBCA, 1798-8, 23823-1, 5643-2, 3040-3, PINR, 71237-0 #### [facility] ([id number]) [address] [address] Hemoglobin (Bld) [Mass/Vol] 12.7 g/dL Normal 11.7-15. 5 [facility] [place] Comment on above: Performed By: #### C MP, CBCA, 1798-8, 71878-1, 5643-2, 3040-3, PINR, 18540-8 #### [facility] ([id number]) [address] [address] Lymphocytes (Bld) [#/Vol] 2.3 10*3/uL Normal 1.0-3.5 [facility] [place] Comment on above: Performed By: #### C MP, CBCA, 1798-8, 86625-4, 5643-2, 3040-3, PINR, 87097-2 #### [facility] ([id number]) [address] [address] Lymphocytes/100 WBC (Bld) 32.6 % Normal [facility] [place] Comment on above: Performed By: #### C MP, CBCA, 1798-8, 11377-7, 5643-2, 3040-3, PINR, 03333-7 #### [facility] ([id number]) [address] [address] [place] [address] MCH (RBC) [Entitic mass] 31.2 pg Normal 27-34 [facility] [place] Comment on above: Performed By: #### C MP, CBCA, 1798-8, 18598-2, 5643-2, 3040-3, PINR, 33052-2 #### [facility] ([id number]) [address] [place] [address] MCHC (RBC) [Mass/Vol] 34.7 g/dL Normal 32-36 [facility] Comment on above: Performed By: #### C MP, CBCA, 1798-8, 14587-0, 5643-2, 3040-3, PINR, 84618-4 #### [facility] ([id number]) [address], [address] [place] [address] MCV (RBC) [Entitic vol] 90 fL Normal 80-100 [facility] Comment on above: Performed By: #### C MP, CBCA, 8-8, 73163-2, 5643-2, 3040-3, PINR, 34072-0 #### [facility] ([id number]) [address], [address] [place] [address] Monocytes (Bld) [#/Vol] 0.6 10*3/uL Normal 0-0.9 [facility] [place] Comment on above: Performed By: #### C MP, CBCA, 1798-8, 59184-6, 5643-2, 3040-3, PINR, 07287-0 #### [facility] ([id number]) [address], [address] [place] [address] Monocytes/100 WBC (Bld) 7.9 % Normal [facility] Comment on above: Performed By: #### C MP, CBCA, 1798-8, 25191-4, 5643-2, 3040-3, PINR, 48683-4 #### [facility] ([id number]) [address], [address] [place] [address] Neutrophils/100 WBC (Bld) 55.4 % Normal [facility] [place] Comment on above: Performed By: #### C MP, CBCA, 1798-8, 43713-1, 5643-2, 3040-3, PINR, 48943-6 #### [facility] ([id number]) [address], [address] [place] [address] Platelet mean volume (Bld) [Entitic vol] 7.4 fL Normal 7-12 [facility] [place] Comment on above: Performed By: #### C MP, CBCA, 1798-8, 02678-4, 5643-2, 3040-3, PINR, 31677-5 #### [facility] ([id number]) [address] [address] [place] [address] Platelets (Bld) [#/Vol] 255 10*3/uL Normal 150-450 [facility] [place] Comment on above: Performed By: #### C MP, CBCA, 1798-8, 04203-0, 5643-2, 3040-3, PINR, 42478-5 #### [facility] ([id number]) [address] [place] [address] RBC COUNT 4.09 X10E12/L Normal 3.80-5.20 [facility] [place] Comment on above: Performed By: #### C MP, CBCA, 1798-8, 42410-5, 5643-2, 3040-3, PINR, 65223-4 #### [facility] ([id number]) [address], [address] [place] [address] WBC (Bld) [#/Vol] 7.1 10*3/uL Normal 4.0-11.0 [facility] Comment on above: Performed By: #### C MP, CBCA, 1798-8, 27178-6, 5643-2, 3040-3, PINR, 99309-0 #### [facility] ([id number]) [address], [address] [place] [address] CBC auto differentialon Basophils (Bld) [#/Vol] 0.0 10*3/uL [facility] Basophils/100 WBC (Bld) 0.5 % P [facility] Eosinophils (Bld) [#/Vol] 0.3 10*3/uL [facility] Eosinophils/100 WBC (Bld) 3.6 % [facility] Erythrocyte distribution width (RBC) [Ratio] 14.5 % 11.5 - 15.0 % [facility] Hematocrit (Bld) [Volume fraction] 36.7 % 35 - 47 % [facility] Hemoglobin (Bld) [Mass/Vol] 12.7 g/dL 11.7 - 15.5 g/dL [facility] Lymphocytes (Bld) [#/Vol] 2.3 10*3/uL [facility] Lymphocytes/100 WBC (Bld) 32.6 % [facility] MCH (RBC) [Entitic mass] 31.2 pg 27 - 34 pg [facility] MCHC (RBC) [Mass/Vol] 34.7 g/dL 32 - 3 6 g/dL [facility] MCV (RBC) [Entitic vol] 90 fL 80 - 100 fL [facility] Monocytes (Bld) [#/Vol] 0.6 10*3/uL [facility] Monocytes/100 WBC (Bld) 7.9 % P [facility] Neutrophils (Bld) [#/Vol] 3.9 10*3/uL [facility] Neutrophils/100 WBC (Bld) 55.4 % [facility] Platelet mean volume (Bld) [Entitic vol] 7.4 fL 7 - 12 fL [facility] Platelets (Bld) [#/Vol] 255 10*3/uL [facility] RBC (Bld) [#/Vol] 4.09 10*6/uL [facility] WBC corrected for nucl RBC Auto (Bld) [#/Vol] 7.1 [facility] Glucose Glucometer (BldC) [M ass/Vol]on 12-18-2023 Glucose [Mass/Vol] 159 mg/dL High 65 - 99 mg/dL [facility] Interpretation and review of laboratory results Abnormal [facility] Glucose [Mass/Vol] 159 mg/dL High 65-99 [facility] Glucose [Mass/Vol] 93 mg/dL 65 - 99 mg/dL [facility] Glucose [Mass/Vol] 93 mg/dL Normal 65-99 [facility] Glucose [Mass/Vol] 113 mg/dL High 65 - 99 mg/dL [facility] Interpretation and review of laboratory results Abnormal [facility] Glucose [Mass/Vol] 113 mg/dL High 65-99 [facility] Glucose [Mass/Vol] 101 mg/dL High 65 - 99 mg/dL [facility] Interpretation and review of laboratory results Abnormal [facility] Glucose [Mass/Vol] 101 mg/dL High 65-99 [facility] BASIC METABOLIC PANLon 12-16 Anion gap [Moles/Vol] 10 mmol/L Normal 5-15 [facility] Comment on above: Performed By: #### C MP, CBCA, 1798-8, 69761-1, 5643-2, 3040-3, PINR, 82545-3 #### [facility] ([id number]) [address], [address] [place] [address] Calcium [Mass/Vol] 9.0 mg/dL Normal 8.5-10.5 [facility] Comment on above: Performed By: #### C MP, CBCA, 1798-8, 49685-0, 5643-2, 3040-3, PINR, 86161-0 #### [facility] ([id number]) [address] [place] [address] Chloride [Moles/Vol] 106 mmol/L Normal 98-109 [facility] Comment on above: Performed By: #### C MP, CBCA, 1798-8, 11074-9, 5643-2, 3040-3, PINR, 54234-2 #### [facility] ([id number]) [address], [address] [place] [address] CO2 [Moles/Vol] 26 mmol/L Normal 22-32 [facility] [place] Comment on above: Performed By: #### C SAEED, CBCA, 1798-8, 13576-6, 5643-2, 3040-3, PINR, 16628-7 #### [facility] ([id number]) [address] [place] [address] Creatinine [Mass/Vol] 0.61 mg/dL Normal 0.40-1.00 [facility] Comment on above: Result Comment: METH OD TRACEABLE TO IDMS STANDARD Performed By: #### C SAEED, DANISA, 1798-8, 99811-1, 5643-2, 3040-3, PINR, 71195-6 #### [facility] ([id number]) [address], [address] [place] [address] GFR/1.73 sq M.predicted among non-blacks MDRD (S/P/Bld) [Vol rate/Area] 89 mL/min/{1.73_m2} Normal >59 [facility] [place] Comment on above: Result Comment: Reported eGFR is based on the CKD-EPI 2020 equation that does not use a race coefficient. Performed By: #### C SAEED, CBCA, 8-8, 57662-6, 5643-2, 3040-3, PINR, 49442-6 #### [facility] ([id number]) [address] [place] [address] Glucose [Mass/Vol] 108 mg/dL High 65-99 [facility] Comment on above: Performed By: #### C SAEED, CBCA, 1798-8, 00142-3, 5643-2, 3040-3, PINR, 19696-7 #### [facility] ([id number]) [address] [place] [address] Potassium [Moles/Vol] 3.6 mmol/L Normal 3.5-5.0 [facility] Comment on above: Performed By: #### C MP, CBCA, 1798-8, 69832-0, 5643-2, 3040-3, PINR, 03177-0 #### [facility] ([id number]) [address] [place] [address] Sodium [Moles/Vol] 142 mmol/L Normal 134-146 [facility] Comment on above: Performed By: #### C MP, CBCA, 1798-8, 03035-6, 5643-2, 3040-3, PINR, 69992-4 #### [facility] ([id number]) [address] [place] [address] Urea nitrogen [Mass/Vol] 13 mg/dL Normal 5-27 [facility] [place] Comment on above: Performed By: #### C MP, CBCA, 1798-8, 89291-2, 5643-2, 3040-3, PINR, 75854-2 #### [facility] ([id number]) [address] [place] [address] Basic Metabolic Panelon 08-3 Anion gap [Moles/Vol] 10 mmol/L 5 - 15 mmol/L [facility] Calcium [Mass/Vol] 9.0 mg/dL 8.5 - 10. 5 mg/dL [facility] Chloride [Moles/Vol] 106 mmol/L 98 - 10 9 mmol/L [facility] CO2 [Moles/Vol] 26 mmol/L 22 - 32 mmol/L [facility] Creatinine [Mass/Vol] 0.61 mg/dL 0.40 - 1.00 mg/dL [facility] Comment on above: METHOD TRACEABLE TO IDMS STANDARD eGFR (CKD-EPI)non-race dependent 89 - PINF [facility] Comment on above: Reported eGFR is based on the CKD-EPI 2020 equation that does not use a race coefficient. Glucose [Mass/Vol] 108 mg/dL High 65 - 99 mg/dL [facility] Interpretation and review of laboratory results Abnormal [facility] Potassium [Moles/Vol] 3.6 mmol/L 3.5 - 5.0 mmol/L [facility] Sodium [Moles/Vol] 142 mmol/L 134 - 146 mmol/L [facility] Urea nitrogen [Mass/Vol] 13 mg/dL 5 - 27 mg/dL [facility] CBC AND AUTO DIFFon 12-17-19 24 ABSOLUTE BASOPHIL 0.0 X10E9/L Normal 0.0-0.2 [facility] Comment on above: Performed By: #### C MP, CBCA, 1798-8, 32399-9, 5643-2, 3040-3, PINR, 42295-8 #### [facility] ([id number]) [address] [place] [address] ABSOLUTE NEUTROPHIL 4.2 X10E9/L Normal 1.5-6.6 [facility] Comment on above: Performed By: #### C MP, CBCA, 1798-8, 90233-3, 5643-2, 3040-3, PINR, 89053-1 #### [facility] ([id number]) [address] [place] [address] Basophils/100 WBC (Bld) 0.5 % Normal [facility] Comment on above: Performed By: #### C MP, CBCA, 1798-8, 09941-7, 5643-2, 3040-3, PINR, 72990-1 #### [facility] ([id number]) [address] [place] [address] Eosinophils (Bld) [#/Vol] 0.2 10*3/uL Normal 0.0-0.4 [facility] [place] Comment on above: Performed By: #### C MP, CBCA, 1798-8, 20045-9, 5643-2, 3040-3, PINR, 98244-3 #### [facility] ([id number]) [address] [address] [place] [address] Eosinophils/100 WBC (Bld) 3.2 % Normal [facility] [place] Comment on above: Performed By: #### C MP, CBCA, 1798-8, 09926-0, 5643-2, 3040-3, PINR, 13281-6 #### [facility] ([id number]) [address] [address] [place] [address] Erythrocyte distribution width (RBC) [Ratio] 14.4 % Normal 11.5-15.0 [facility] [place] Comment on above: Performed By: #### C MP, CBCA, 1798-8, 15401-7, 5643-2, 3040-3, PINR, 53260-0 #### [facility] ([id number]) [address] [address] [place] [address] Hematocrit (Bld) [Volume fraction] 34.3 % Low 35-47 [facility] [place] Comment on above: Performed By: #### C MP, CBCA, 8-8, 70054-1, 5643-2, 3040-3, PINR, [id number] #### [facility] ([id number]) [address] [address] [place] [address] Hemoglobin (Bld) [Mass/Vol] 11.6 g/dL Low 11.7-15. 5 [facility] [place] Comment on above: Performed By: #### C MP, CBCA, 1798-8, 07081-7, 5643-2, 3040-3, PINR, [id number] #### [facility] ([id number]) [address] [address] [place] [address] Lymphocytes (Bld) [#/Vol] 1.6 10*3/uL Normal 1.0-3.5 [facility] [place] Comment on above: Performed By: #### C MP, CBCA, 1798-8, 17276-8, 5643-2, 3040-3, PINR, 42923-6 #### [facility] ([id number]) [address] [address] [place] [address] Lymphocytes/100 WBC (Bld) 24.1 % Normal [facility] [place] Comment on above: Performed By: #### C MP, CBCA, 1798-8, 45854-2, 5643-2, 3040-3, PINR, 84170-5 #### [facility] ([id number]) [address] [address] MCH (RBC) [Entitic mass] 30.6 pg Normal 27-34 [facility] [place] Comment on above: Performed By: #### C MP, CBCA, 8-8, 73024-1, 5643-2, 3040-3, PINR, 60699-5 #### [facility] [facility] ([id number]) [address] [address] MCHC (RBC) [Mass/Vol] 34.0 g/dL Normal 32-36 [facility] Comment on above: Performed By: #### C MP, CBCA, 8-8, 67892-5, 5643-2, 3040-3, PINR, 57207-0 #### [facility] ([id number]) [address] [address] MCV (RBC) [Entitic vol] 90 fL Normal 80-100 [facility] Comment on above: Performed By: #### C MP, CBCA, 1798-8, 44515-7, 5643-2, 3040-3, PINR, 56283-8 #### [facility] ([id number]) [address] [address] Monocytes (Bld) [#/Vol] 0.6 10*3/uL Normal 0-0.9 [facility] Comment on above: Performed By: #### C MP, CBCA, 1798-8, 40213-9, 5643-2, 3040-3, PINR, 55762-8 #### [facility] ([id number]) [address] [place] [address] Monocytes/100 WBC (Bld) 8.4 % Normal [facility] Comment on above: Performed By: #### C MP, CBCA, 1798-8, 51877-2, 5643-2, 3040-3, PINR, 42112-9 #### [facility] ([id number]) [address], [facility] [address] [place] [address] Neutrophils/100 WBC (Bld) 63.8 % Normal [facility] Comment on above: Performed By: #### C MP, CBCA, 1798-8, 39592-6, 5643-2, 3040-3, PINR, 90075-9 #### [facility] ([id number]) [address] [place] [address] Platelet mean volume (Bld) [Entitic vol] 7.4 fL Normal 7-12 [facility] Comment on above: Performed By: #### C MP, CBCA, 1798-8, 85895-4, 5643-2, 3040-3, PINR, 25181-6 #### [facility] ([id number]) [address] [place] [address] Platelets (Bld) [#/Vol] 252 10*3/uL Normal 150-450 [facility] Comment on above: Performed By: #### C MP, CBCA, 1798-8, 12611-5, 5643-2, 3040-3, PINR, 73694-1 #### [facility] ([id number]) [address] [place] [address] RBC COUNT 3.81 X10E12/L Normal 3.80-5.20 [facility] Comment on above: Performed By: #### C MP, CBCA, 1798-8, 97115-6, 5643-2, 3040-3, PINR, 91156-7 #### [facility] ([id number]) [address], [address] [place] [address] WBC (Bld) [#/Vol] 6.6 10*3/uL Normal 4.0-11.0 [facility] Comment on above: Performed By: #### C MP, CBCA, 1798-8, 35744-1, 5643-2, 3040-3, PINR, 45401-3 #### [facility] ([id number]) [address] [place] [address] CBC auto differentialon 08-3 Basophils (Bld) [#/Vol] 0.0 10*3/uL [facility] Basophils/100 WBC (Bld) 0.5 % [facility] Eosinophils (Bld) [#/Vol] 0.2 10*3/uL [facility] Eosinophils/100 WBC (Bld) 3.2 % [facility] Erythrocyte distribution width (RBC) [Ratio] 14.4 % 11.5 - 15.0 % [facility] Hematocrit (Bld) [Volume fraction] 34.3 % Low 35 - 47 % [facility] Hemoglobin (Bld) [Mass/Vol] 11.6 g/dL Low 11.7 - 15.5 g/dL [facility] Interpretation and review of laboratory results Abnormal [facility] Lymphocytes (Bld) [#/Vol] 1.6 10*3/uL [facility] Lymphocytes/100 WBC (Bld) 24.1 % [facility] MCH (RBC) [Entitic mass] 30.6 pg 27 - 34 pg [facility] MCHC (RBC) [Mass/Vol] 34.0 g/dL 32 - 3 6 g/dL [facility] MCV (RBC) [Entitic vol] 90 fL 80 - 100 fL [facility] Monocytes (Bld) [#/Vol] 0.6 10*3/uL [facility] Monocytes/100 WBC (Bld) 8.4 % P [facility] Neutrophils (Bld) [#/Vol] 4.2 10*3/uL [facility] Neutrophils/100 WBC (Bld) 63.8 % [facility] Platelet mean volume (Bld) [Entitic vol] 7.4 fL 7 - 12 fL [facility] Platelets (Bld) [#/Vol] 252 10*3/uL [facility] RBC (Bld) [#/Vol] 3.81 10*6/uL [facility] WBC corrected for nucl RBC Auto (Bld) [#/Vol] 6.6 [facility] Glucose Glucometer (dC) [M ass/Vol]on 12-17-2023 Glucose [Mass/Vol] 107 mg/dL High 65 - 99 mg/dL [facility] Interpretation and review of laboratory results Abnormal [facility] Glucose [Mass/Vol] 107 mg/dL High 65-99 [facility] Glucose [Mass/Vol] 118 mg/dL High 65 - 99 mg/dL [facility] Interpretation and review of laboratory results Abnormal [facility] Glucose [Mass/Vol] 118 mg/dL High 65-99 [facility] Glucose [Mass/Vol] 113 mg/dL High 65 - 99 mg/dL [facility] Interpretation and review of laboratory results Abnormal [facility] Glucose [Mass/Vol] 113 mg/dL High 65-99 [facility] Glucose [Mass/Vol] 100 mg/dL High 65 - 99 mg/dL [facility] Interpretation and review of laboratory results Abnormal [facility] Glucose [Mass/Vol] 100 mg/dL High 65-99 [facility] US.doppler Lower extremity v ein - bilateralon [...] at the phone number beside their name. [facility] Radiology Study observation (narrative) [facility] US.doppler Lower extremity v ein - bilateralOrdered By: Rodney Lares on 12-17-2023 [facility] Work Phone: BASIC METABOLIC PANLon 12-15 Anion gap [Moles/Vol] 8 mmol/L Normal 5-15 [facility] Comment on above: Performed By: #### C MP, CBCA, 1798-8, 61574-2, 5643-2, 3040-3, PINR, 26817-5 #### [facility] ([id number]) [address], [address] [place] [address] Calcium [Mass/Vol] 8.9 mg/dL Normal 8.5-10.5 [facility] Comment on above: Performed By: #### C MP, CBCA, 1798-8, 85976-0, 5643-2, 3040-3, PINR, 50987-4 #### [facility] ([id number]) [address], [address] [place] [address] Chloride [Moles/Vol] 107 mmol/L Normal 98-109 [facility] Comment on above: Performed By: #### C MP, CBCA, 1798-8, 61343-9, 5643-2, 3040-3, PINR, 34085-2 #### [facility] ([id number]) [address], [address] [place] [address] CO2 [Moles/Vol] 24 mmol/L Normal 22-32 [facility] Comment on above: Performed By: #### C MP, CBCA, 1798-8, 84657-7, 5643-2, 3040-3, PINR, 14651-4 #### [facility] ([id number]) [address], [address] [place] [address] Creatinine [Mass/Vol] 0.51 mg/dL Normal 0.40-1.00 [facility] Comment on above: Result Comment: METH OD TRACEABLE TO IDMS STANDARD Performed By: #### C MP, CBCA, 1798-8, 81478-0, 5643-2, 3040-3, PINR, 52789-4 #### [facility] ([id number]) [address], [address] [place] [address] eGFR (CKD-EPI) NON-RACE DEPENDENT >90 Normal >59 [facility] Comment on above: Result Comment: Reported eGFR is based on the CKD-EPI 2020 equation that does not use a race coefficient. Performed By: #### C MP, CBCA, 1798-8, 28275-9, 5643-2, 3040-3, PINR, 53827-0 #### [facility] ([id number]) [address], [address] [place] [address] Glucose [Mass/Vol] 163 mg/dL High 65-99 [facility] Comment on above: Performed By: #### C MP, CBCA, 1798-8, 57197-6, 5643-2, 3040-3, PINR, 53119-1 #### [facility] ([id number]) [address], [address] [place] [address] Potassium [Moles/Vol] 3.7 mmol/L Normal 3.5-5.0 [facility] Comment on above: Performed By: #### C MP, CBCA, 1798-8, 30710-6, 5643-2, 3040-3, PINR, 53519-5 #### [facility] ([id number]) [address], [address] [place] [address] Sodium [Moles/Vol] 139 mmol/L Normal 134-146 [facility] Comment on above: Performed By: #### C MP, CBCA, 1798-8, 37578-3, 5643-2, 3040-3, PINR, 64788-1 #### [facility] ([id number]) [address], [address] [place] [address] Urea nitrogen [Mass/Vol] 12 mg/dL Normal 5-27 [facility] Comment on above: Performed By: #### C MP, CBCA, 1798-8, 11785-9, 5643-2, 3040-3, PINR, 21969-5 #### [facility] ([id number]) [address], [address] [place] [address] Basic Metabolic Panelon 08-3 -2023 Anion gap [Moles/Vol] 8 mmol/L 5 - 15 mmol/L [facility] Calcium [Mass/Vol] 8.9 mg/dL 8.5 - 10. 5 mg/dL [facility] Chloride [Moles/Vol] 107 mmol/L 98 - 10 9 mmol/L [facility] CO2 [Moles/Vol] 24 mmol/L 22 - 32 mmol/L [facility] Creatinine [Mass/Vol] 0.51 mg/dL 0.40 - 1.00 mg/dL [facility] Comment on above: METHOD TRACEABLE TO IDIA STANDARD eGFR (CKD-EPI)non-race dependent - PINF [facility] Comment on above: Reported eGFR is based on the CKD-EPI 2020 equation that does not use a race coefficient. Glucose [Mass/Vol] 163 mg/dL High 65 - 99 mg/dL [facility] Interpretation and review of laboratory results Abnormal [facility] Potassium [Moles/Vol] 3.7 mmol/L 3.5 - 5.0 mmol/L [facility] Sodium [Moles/Vol] 139 mmol/L 134 - 146 mmol/L [facility] Urea nitrogen [Mass/Vol] 12 mg/dL 5 - 27 mg/dL [facility] CBC AND AUTO DIFFon 12-16-19 24 ABSOLUTE BASOPHIL 0.0 X10E9/L Normal 0.0-0.2 [facility] Comment on above: Performed By: #### C MP, CBCA, 8-8, 31773-2, 5643-2, 3040-3, PINR, 82325-9 #### [facility] ([id number]) [address], [address] [place] [address] ABSOLUTE NEUTROPHIL 4.2 X10E9/L Normal 1.5-6.6 [facility] Comment on above: Performed By: #### C MP, CBCA, 1798-8, 49495-1, 5643-2, 3040-3, PINR, 34849-0 #### [facility] ([id number]) [address], [address] [place] [address] Basophils/100 WBC (Bld) 0.4 % Normal [facility] Comment on above: Performed By: #### C MP, CBCA, 8-8, 08838-8, 5643-2, 3040-3, PINR, 21616-4 #### [facility] ([id number]) [address] [address] [place] [address] Eosinophils (Bld) [#/Vol] 0.2 10*3/uL Normal 0.0-0.4 [facility] Comment on above: Performed By: #### C MP, CBCA, 1798-8, 97343-2, 5643-2, 3040-3, PINR, 17953-6 #### [facility] ([id number]) [address] [address] Eosinophils/100 WBC (Bld) 2.8 % Normal [facility] Comment on above: Performed By: #### C MP, CBCA, 1798-8, 01048-3, 5643-2, 3040-3, PINR, 11092-4 #### [facility] ([id number]) [address] [address] Erythrocyte distribution width (RBC) [Ratio] 14.3 % Normal 11.5-15.0 [facility] Comment on above: Performed By: #### C MP, CBCA, 8-8, 35664-3, 5643-2, 3040-3, PINR, 41467-2 #### [facility] ([id number]) [address] [address] Hematocrit (Bld) [Volume fraction] 33.6 % Low 35-47 [facility] Comment on above: Performed By: #### C MP, CBCA, 1798-8, 93249-7, 5643-2, 3040-3, PINR, 32891-9 #### [facility] ([id number]) [address] [address] Hemoglobin (Bld) [Mass/Vol] 11.8 g/dL Normal 11.7-15. 5 [facility] Comment on above: Performed By: #### C MP, CBCA, 1798-8, 98952-7, 5643-2, 3040-3, PINR, 61359-4 #### [facility] ([id number]) [address] [address] Lymphocytes (Bld) [#/Vol] 1.2 10*3/uL Normal 1.0-3.5 [facility] Comment on above: Performed By: #### C MP, CBCA, 1798-8, 95483-8, 5643-2, 3040-3, PINR, 70482-5 #### [facility] ([id number]) [address] [address] Lymphocytes/100 WBC (Bld) 19.6 % Normal [facility] Comment on above: Performed By: #### C MP, CBCA, 8-8, 38303-2, 5643-2, 3040-3, PINR, 76905-2 #### [facility] ([id number]) [address] [address] MCH (RBC) [Entitic mass] 31.7 pg Normal 27-34 [facility] Comment on above: Performed By: #### C MP, CBCA, 1798-8, 59476-4, 5643-2, 3040-3, PINR, 29174-3 #### [facility] ([id number]) [address] [address] MCHC (RBC) [Mass/Vol] 35.3 g/dL Normal 32-36 [facility] Comment on above: Performed By: #### C MP, CBCA, 1798-8, 98292-4, 5643-2, 3040-3, PINR, 40213-6 #### [facility] ([id number]) [address] [address] [place] [address] MCV (RBC) [Entitic vol] 90 fL Normal 80-100 [facility] Comment on above: Performed By: #### C MP, CBCA, 1798-8, 87665-8, 5643-2, 3040-3, PINR, 26465-1 #### [facility] ([id number]) [address] [place] [address] Monocytes (Bld) [#/Vol] 0.4 10*3/uL Normal 0-0.9 [facility] Comment on above: Performed By: #### C MP, CBCA, 1798-8, 69349-3, 5643-2, 3040-3, PINR, 59472-4 #### [facility] ([id number]) [address], [address] [place] [address] Monocytes/100 WBC (Bld) 6.7 % Normal [facility] Comment on above: Performed By: #### C MP, CBCA, 1798-8, 78455-4, 5643-2, 3040-3, PINR, 87631-4 #### [facility] ([id number]) [address], [address] [place] [address] Neutrophils/100 WBC (Bld) 70.5 % Normal [facility] Comment on above: Performed By: #### C MP, CBCA, 1798-8, 54932-9, 5643-2, 3040-3, PINR, 66521-8 #### [facility] ([id number]) [address], [address] [place] [address] Platelet mean volume (Bld) [Entitic vol] 7.2 fL Normal 7-12 [facility] Comment on above: Performed By: #### C MP, CBCA, 1798-8, 49069-3, 5643-2, 3040-3, PINR, 32749-3 #### [facility] ([id number]) [address] [place] [address] Platelets (Bld) [#/Vol] 215 10*3/uL Normal 150-450 [facility] Comment on above: Performed By: #### C MP, CBCA, 1798-8, 01626-3, 5643-2, 3040-3, PINR, 66993-0 #### [facility] ([id number]) [address] [place] [address] RBC COUNT 3.73 X10E12/L Low 3.80-5.20 [facility] Comment on above: Performed By: #### C MP, CBCA, 1798-8, 41245-2, 5643-2, 3040-3, PINR, 25256-4 #### [facility] ([id number]) [address] [place] [address] WBC (Bld) [#/Vol] 6.0 10*3/uL Normal 4.0-11.0 [facility] Comment on above: Performed By: #### C MP, CBCA, 1798-8, 24787-7, 5643-2, 3040-3, PINR, 74101-3 #### [facility] ([id number]) [address] [place] [address] CBC auto differentialon 3 0-2023 Basophils (Bld) [#/Vol] 0.0 10*3/uL [facility] Basophils/100 WBC (Bld) 0.4 % [facility] Eosinophils (Bld) [#/Vol] 0.2 10*3/uL [facility] Eosinophils/100 WBC (Bld) 2.8 % [facility] Erythrocyte distribution width (RBC) [Ratio] 14.3 % 11.5 - 15.0 % [facility] Hematocrit (Bld) [Volume fraction] 33.6 % Low 35 - 47 % [facility] Hemoglobin (Bld) [Mass/Vol] 11.8 g/dL 11.7 - 15.5 g/dL [facility] Interpretation and review of laboratory results Abnormal [facility] Lymphocytes (Bld) [#/Vol] 1.2 10*3/uL [facility] Lymphocytes/100 WBC (Bld) 19.6 % [facility] MCH (RBC) [Entitic mass] 31.7 pg 27 - 34 pg [facility] MCHC (RBC) [Mass/Vol] 35.3 g/dL 32 - 3 6 g/dL [facility] MCV (RBC) [Entitic vol] 90 fL 80 - 100 fL [facility] Monocytes (Bld) [#/Vol] 0.4 10*3/uL [facility] Monocytes/100 WBC (Bld) 6.7 % P [facility] Neutrophils (Bld) [#/Vol] 4.2 10*3/uL [facility] Neutrophils/100 WBC (Bld) 70.5 % [facility] Platelet mean volume (Bld) [Entitic vol] 7.2 fL 7 - 12 fL [facility] Platelets (Bld) [#/Vol] 215 10*3/uL [facility] RBC (Bld) [#/Vol] 3.73 10*6/uL [facility] WBC corrected for nucl RBC Auto (Bld) [#/Vol] 6.0 [facility] Glucose Glucometer (dC) [M ass/Vol]on 12-16-2023 Glucose [Mass/Vol] 101 mg/dL High 65 - 99 mg/dL [facility] Interpretation and review of laboratory results Abnormal [facility] Glucose [Mass/Vol] 101 mg/dL High 65-99 [facility] Glucose [Mass/Vol] 105 mg/dL High 65 - 99 mg/dL [facility] Interpretation and review of laboratory results Abnormal [facility] Glucose [Mass/Vol] 105 mg/dL High 65-99 [facility] Glucose [Mass/Vol] 180 mg/dL High 65 - 99 mg/dL [facility] Interpretation and review of laboratory results Abnormal [facility] Glucose [Mass/Vol] 180 mg/dL High 65-99 [facility] Glucose [Mass/Vol] 174 mg/dL High 65 - 99 mg/dL [facility] Interpretation and review of laboratory results Abnormal [facility] Glucose [Mass/Vol] 174 mg/dL High 65-99 [facility] BASIC METABOLIC PANLon 12-14 Anion gap [Moles/Vol] 11 mmol/L Normal 5-15 [facility] Comment on above: Performed By: #### C MP, CBCA, 1798-8, 69168-4, 5643-2, 3040-3, PINR, 98242-8 #### [facility] ([id number]) [address] [place] [address] Calcium [Mass/Vol] 9.4 mg/dL Normal 8.5-10.5 [facility] Comment on above: Performed By: #### C MP, CBCA, 1798-8, 64443-5, 5643-2, 3040-3, PINR, 84034-0 #### [facility] ([id number]) [address] [place] [address] Chloride [Moles/Vol] 105 mmol/L Normal 98-109 [facility] Comment on above: Performed By: #### C MP, CBCA, 1798-8, 70912-5, 5643-2, 3040-3, PINR, 31676-7 #### [facility] ([id number]) [address] [place] [address] CO2 [Moles/Vol] 25 mmol/L Normal 22-32 [facility] Comment on above: Performed By: #### C MP, CBCA, 1798-8, 87807-2, 5643-2, 3040-3, PINR, 32989-7 #### [facility] ([id number]) [address] [place] [address] Creatinine [Mass/Vol] 0.69 mg/dL Normal 0.40-1.00 [facility] Comment on above: Result Comment: METH OD TRACEABLE TO IDMS STANDARD Performed By: #### C MP, CBCA, 1798-8, 56821-5, 5643-2, 3040-3, PINR, 47382-7 #### [facility] ([id number]) [address] [address] [place] [address] GFR/1.73 sq M.predicted among non-blacks MDRD (S/P/Bld) [Vol rate/Area] 86 mL/min/{1.73_m2} Normal >59 [facility] Comment on above: Result Comment: Reported eGFR is based on the CKD-EPI 2020 equation that does not use a race coefficient. Performed By: #### C MP, CBCA, 1798-8, 80319-7, 5643-2, 3040-3, PINR, 47838-4 #### [facility] ([id number]) [address] [facility] [address] [place] [address] Glucose [Mass/Vol] 147 mg/dL High 65-99 [facility] Comment on above: Performed By: #### C MP, CBCA, 1798-8, 19706-3, 5643-2, 3040-3, PINR, 07204-9 #### [facility] ([id number]) [address] [facility] [address] [place] [address] Potassium [Moles/Vol] 3.8 mmol/L Normal 3.5-5.0 [facility] Comment on above: Performed By: #### C MP, CBCA, 1798-8, 55521-9, 5643-2, 3040-3, PINR, 50923-8 #### [facility] ([id number]) [address] [place] [address] Sodium [Moles/Vol] 141 mmol/L Normal 134-146 [facility] Comment on above: Performed By: #### C MP, CBCA, 1798-8, 25015-5, 5643-2, 3040-3, PINR, 22697-0 #### [facility] ([id number]) [address] [place] [address] Urea nitrogen [Mass/Vol] 14 mg/dL Normal 5-27 [facility] Comment on above: Performed By: #### C MP, CBCA, 1798-8, 45576-7, 5643-2, 3040-3, PINR, 90799-6 #### [facility] ([id number]) [address] [place] [address] Basic Metabolic Panelon 11-17 Anion gap [Moles/Vol] 11 mmol/L 5 - 15 mmol/L [facility] Calcium [Mass/Vol] 9.4 mg/dL 8.5 - 10. 5 mg/dL [facility] Chloride [Moles/Vol] 105 mmol/L 98 - 10 9 mmol/L [facility] CO2 [Moles/Vol] 25 mmol/L 22 - 32 mmol/L [facility] Creatinine [Mass/Vol] 0.69 mg/dL 0.40 - 1.00 mg/dL [facility] Comment on above: METHOD TRACEABLE TO IDIA STANDARD eGFR (CKD-EPI)non-race dependent 86 - PINF [facility] Comment on above: Reported eGFR is based on the CKD-EPI 2020 equation that does not use a race coefficient. Glucose [Mass/Vol] 147 mg/dL High 65 - 99 mg/dL [facility] Interpretation and review of laboratory results Abnormal [facility] Potassium [Moles/Vol] 3.8 mmol/L 3.5 - 5.0 mmol/L [facility] Sodium [Moles/Vol] 141 mmol/L 134 - 146 mmol/L [facility] Urea nitrogen [Mass/Vol] 14 mg/dL 5 - 27 mg/dL [facility] CBC AND AUTO DIFFon 12-15-19 24 ABSOLUTE BASOPHIL 0.0 X10E9/L Normal 0.0-0.2 [facility] Comment on above: Performed By: #### C MP, CBCA, 1798-8, 69183-2, 5643-2, 3040-3, PINR, 58261-2 #### [facility] ([id number]) [address] [place] [address] ABSOLUTE NEUTROPHIL 6.2 X10E9/L Normal 1.5-6.6 [facility] Comment on above: Performed By: #### C MP, CBCA, 1798-8, 04973-8, 5643-2, 3040-3, PINR, 49460-1 #### [facility] ([id number]) [address] [place] [address] Basophils/100 WBC (Bld) 0.3 % Normal [facility] Comment on above: Performed By: #### C MP, CBCA, 8-8, 97172-9, 5643-2, 3040-3, PINR, 41871-9 #### [facility] ([id number]) [address] [place] [address] Eosinophils (Bld) [#/Vol] 0.0 10*3/uL Normal 0.0-0.4 [facility] [place] Comment on above: Performed By: #### C MP, CBCA, 8-8, 53832-0, 5643-2, 3040-3, PINR, 80939-4 #### [facility] ([id number]) [address], [address] [place] [address] Eosinophils/100 WBC (Bld) 0.6 % Normal [facility] [place] Comment on above: Performed By: #### C MP, CBCA, 8-8, 90912-8, 5643-2, 3040-3, PINR, 99953-9 #### [facility] ([id number]) [address], [address] [place] [address] Erythrocyte distribution width (RBC) [Ratio] 14.0 % Normal 11.5-15.0 [facility] [place] Comment on above: Performed By: #### C MP, CBCA, 8-8, 41380-6, 5643-2, 3040-3, PINR, 16651-9 #### [facility] ([id number]) [address], [address] [place] [address] Hematocrit (Bld) [Volume fraction] 37.1 % Normal 35-47 [facility] [place] Comment on above: Performed By: #### C MP, CBCA, 8-8, 66221-2, 5643-2, 3040-3, PINR, 27928-3 #### [facility] ([id number]) [address], [address] [place] [address] Hemoglobin (Bld) [Mass/Vol] 12.4 g/dL Normal 11.7-15. 5 [facility] [place] Comment on above: Performed By: #### C MP, CBCA, 1797-8, 02921-8, 5643-2, 3040-3, PINR, [id number] #### [facility] ([id number]) [address], [address] [place] [address] Lymphocytes (Bld) [#/Vol] 1.0 10*3/uL Normal 1.0-3.5 [facility] [place] Comment on above: Performed By: #### C MP, CBCA, 1797-8, 21815-0, 5643-2, 3040-3, PINR, [id number] #### [facility] ([id number]) [address], [address] [place] [address] Lymphocytes/100 WBC (Bld) 12.8 % Normal [facility] [place] Comment on above: Performed By: #### C MP, CBCA, 8-8, 86893-2, 5643-2, 3040-3, PINR, 55143-6 #### [facility] ([id number]) [address], [address] [place] [address] MCH (RBC) [Entitic mass] 30.3 pg Normal 27-34 [facility] [place] Comment on above: Performed By: #### C MP, CBCA, 1798-8, 28814-7, 5643-2, 3040-3, PINR, [id number] #### [facility] ([id number]) [address], [address] [place] [address] MCHC (RBC) [Mass/Vol] 33.4 g/dL Normal 32-36 [facility] Comment on above: Performed By: #### C MP, CBCA, 8-8, 05024-4, 5643-2, 3040-3, PINR, 49103-0 #### [facility] ([id number]) [address], [facility] [address] [place] [address] MCV (RBC) [Entitic vol] 91 fL Normal 80-100 [facility] Comment on above: Performed By: #### C MP, CBCA, 1797-8, 62101-0, 5643-2, 3040-3, PINR, 57537-9 #### [facility] ([id number]) [address], [facility] [address] [place] [address] Monocytes (Bld) [#/Vol] 0.4 10*3/uL Normal 0-0.9 [facility] [place] Comment on above: Performed By: #### C MP, CBCA, 8-8, 81330-0, 5643-2, 3040-3, PINR, 91743-8 #### [facility] ([id number]) [address] [address] [place] [address] Monocytes/100 WBC (Bld) 4.7 % Normal [facility] Comment on above: Performed By: #### C MP, CBCA, 8-8, 64281-7, 5643-2, 3040-3, PINR, 50168-6 #### [facility] ([id number]) [address], [address] [place] [address] Neutrophils/100 WBC (Bld) 81.6 % Normal [facility] [place] Comment on above: Performed By: #### C MP, CBCA, 1798-8, 43263-8, 5643-2, 3040-3, PINR, 01124-8 #### [facility] ([id number]) [address], [facility] [address] [place] [address] Platelet mean volume (Bld) [Entitic vol] 7.8 fL Normal 7-12 [facility] [place] Comment on above: Performed By: #### C MP, CBCA, 1798-8, 10327-5, 5643-2, 3040-3, PINR, 97083-8 #### [facility] ([id number]) [address] [address] Platelets (Bld) [#/Vol] 224 10*3/uL Normal 150-450 [facility] [place] Comment on above: Performed By: #### C MP, CBCA, 8-8, 09399-7, 5643-2, 3040-3, PINR, 48788-7 #### [facility] ([id number]) [address] [address] RBC COUNT 4.10 X10E12/L Normal 3.80-5.20 [facility] [place] Comment on above: Performed By: #### C MP, CBCA, 1798-8, 87799-9, 5643-2, 3040-3, PINR, 48661-2 #### [facility] ([id number]) [address] [address] [place] [address] WBC (Bld) [#/Vol] 7.5 10*3/uL Normal 4.0-11.0 [facility] Comment on above: Performed By: #### C MP, CBCA, 1798-8, 98196-2, 5643-2, 3040-3, PINR, 89216-6 #### [facility] ([id number]) [address] [place] [address] CBC auto differentialon 11-17 Basophils (Bld) [#/Vol] 0.0 10*3/uL [facility] Basophils/100 WBC (Bld) 0.3 % P [facility] Eosinophils (Bld) [#/Vol] 0.0 10*3/uL [facility] Eosinophils/100 WBC (Bld) 0.6 % [facility] Erythrocyte distribution width (RBC) [Ratio] 14.0 % 11.5 - 15.0 % [facility] Hematocrit (Bld) [Volume fraction] 37.1 % 35 - 47 % [facility] Hemoglobin (Bld) [Mass/Vol] 12.4 g/dL 11.7 - 15.5 g/dL [facility] Lymphocytes (Bld) [#/Vol] 1.0 10*3/uL [facility] Lymphocytes/100 WBC (Bld) 12.8 % [facility] MCH (RBC) [Entitic mass] 30.3 pg 27 - 34 pg [facility] MCHC (RBC) [Mass/Vol] 33.4 g/dL 32 - 3 6 g/dL [facility] MCV (RBC) [Entitic vol] 91 fL 80 - 100 fL [facility] Monocytes (Bld) [#/Vol] 0.4 10*3/uL [facility] Monocytes/100 WBC (Bld) 4.7 % [facility] Neutrophils (Bld) [#/Vol] 6.2 10*3/uL [facility] Neutrophils/100 WBC (Bld) 81.6 % [facility] Platelet mean volume (Bld) [Entitic vol] 7.8 fL 7 - 12 fL [facility] Platelets (Bld) [#/Vol] 224 10*3/uL [facility] RBC (Bld) [#/Vol] 4.10 10*6/uL [facility] WBC corrected for nucl RBC Auto (Bld) [#/Vol] 7.5 [facility] Cardiac echo study Procedure Ordered By: Brennon Walsh on 12-15-2023 Aortic root 2.80 cm [employer] Work Phone: AV mean gradient 3.00 mmHg [facility] Work Phone: AV peak gradient 5.02 mmHg [employer] Work Phone: AV peak gisell 112.00 cm/s [employer] Work Phone: AV valve area 2.77 cm2 [employer] Work Phone: AV Velocity Ratio 0.98 [employer] Work Phone: AV VTI 30.50 cm [employer] Work Phone: E wave deceleration time 288.00 msec [employer] Work Phone: E/A ratio 0.73 [employer] Work Phone: Energy loss index 3.00 [employer] Work Phone: FS 40 % 28 - 44 % [employer] Work Phone: Interventricular Septum Diastolic Thickness by 2D 9 cm [employer] Work Phone: IVS 0.90 cm 0.6 - 1.1 cm [employer] Work Phone: LA size 3.80 cm [employer] Work Phone: LA Volume Index 14.0 mL/m2 [employer] Work Phone: Left Ventricle Mass 142.80318325259024 g [employer] Work Phone: LV ESV A4C 23.60 mL [employer] Work Phone: LV RWT 2D 51.16 [employer] Work Phone: LVIDd 4.30 cm 3.98 - 5.52 cm [employer] Work Phone: LVIDs 2.60 cm 2.36 - 3.57 cm [employer] Work Phone: LVOT diameter 1.90 cm [facility] Work Phone: LVOT peak gisell 1.21 m/s [facility] [employer] Work Phone: LVOT peak VTI 29.80 cm [facility] Work Phone: LVOT stroke volume 84.49 ml [facility] [employer] Work Phone: MV Peak A Gisell 104.00 cm/s [facility] Work Phone: MV Peak E Gisell 76.30 cm/s [facility] Work Phone: MV pressure 1/2 time 84.00 ms [facility] Work Phone: MV TDI E' (medial) 3.70 cm/s [facility] Work Phone: MV valve area p 1/2 method 2.62 cm2 [facility] Work Phone: PV mean gradient 2.00 mmHg [facility] [employer] Work Phone: PV peak gradient 3.37 mmHg [facility] [employer] Work Phone: PW 1.10 cm 0.6 - 1.1 cm [facility] Work Phone: RA area 12.0 cm2 [facility] Work Phone: RV diastolic dimension (basal) 32.0 mm [facility] Work Phone: TDI 7.94 cm/s [facility] Work Phone: Valve area - Index 1.6 [facility] Work Phone: ZLVIDD -0.86 [facility] Work Phone: ZLVIDS -0.87 [facility] Work Phone: [facility] Work Phone: Cardiac echo study Procedure on [...] respiration. Syncope. [facility] Study observation (narrative) [facility] Glucose Glucometer (BldC) [M ass/Vol]on 12-15-2023 Glucose [Mass/Vol] 156 mg/dL High 65 - 99 mg/dL [facility] Interpretation and review of laboratory results Abnormal [facility] [employer] Glucose [Mass/Vol] 156 mg/dL High 65-99 [facility] Glucose [Mass/Vol] 107 mg/dL High 65 - 99 mg/dL [facility] Interpretation and review of laboratory results Abnormal [facility] Glucose [Mass/Vol] 107 mg/dL High 65-99 [facility] Glucose [Mass/Vol] 117 mg/dL High 65 - 99 mg/dL [facility] Interpretation and review of laboratory results Abnormal [facility] Glucose [Mass/Vol] 117 mg/dL High 65-99 [facility] Glucose [Mass/Vol] 118 mg/dL High 65-99 [facility] Interpretation and review of laboratory results Abnormal [facility] ABO Rh Repeaton 12-14-2023 ABO A [facility] Rh Nom (Bld) Positive [facility] AMYLASEon 12-14-2023 Amylase [Catalytic activity/Vol] 38 U/L Normal 28-100 [facility] [place] Comment on above: Performed By: #### C MP, CBCA, 1798-8, 93246-3, 5643-2, 3040-3, PINR, 06346-6 #### [facility] ([id number]) [address], [address] [place] [address] APTTon 12-14-2023 aPTT Coag (PPP) [Time] 30 s [facility] Amylaseon 12-14-2023 Amylase [Catalytic activity/Vol] 38 U/L 28 - 100 U/L [facility] CBC AND AUTO DIFFon 12-14-19 24 ABSOLUTE BASOPHIL 0.0 X10E9/L Normal 0.0-0.2 [facility] Comment on above: Performed By: #### C MP, CBCA, 1798-8, 39263-0, 5643-2, 3040-3, PINR, 15336-9 #### [facility] ([id number]) [address], [address] [place] [address] ABSOLUTE NEUTROPHIL 4.1 X10E9/L Normal 1.5-6.6 [facility] Comment on above: Performed By: #### C MP, CBCA, 1798-8, 68019-9, 5643-2, 3040-3, PINR, 42768-3 #### [facility] ([id number]) [address], [address] [place] [address] Basophils/100 WBC (Bld) 0.5 % Normal [facility] Comment on above: Performed By: #### C MP, CBCA, 1798-8, 09052-0, 5643-2, 3040-3, PINR, 25800-7 #### [facility] ([id number]) [address] [address] Eosinophils (Bld) [#/Vol] 0.3 10*3/uL Normal 0.0-0.4 [facility] [place] Comment on above: Performed By: #### C MP, CBCA, 8-8, 65036-2, 5643-2, 3040-3, PINR, 77634-4 #### [facility] ([id number]) [address] [address] [place] [address] Eosinophils/100 WBC (Bld) 4.4 % Normal [facility] [place] Comment on above: Performed By: #### C MP, CBCA, 8-8, 26495-9, 5643-2, 3040-3, PINR, 77514-2 #### [facility] ([id number]) [address] [address] [place] [address] Erythrocyte distribution width (RBC) [Ratio] 14.1 % Normal 11.5-15.0 [facility] [place] Comment on above: Performed By: #### C MP, CBCA, 1798-8, 93875-1, 5643-2, 3040-3, PINR, 87454-8 #### [facility] ([id number]) [address] [address] [place] [address] Hematocrit (Bld) [Volume fraction] 31.6 % Low 35-47 [facility] [place] Comment on above: Performed By: #### C MP, CBCA, 1798-8, 25840-7, 5643-2, 3040-3, PINR, 81150-8 #### [facility] ([id number]) [address] [place] [address] Hemoglobin (Bld) [Mass/Vol] 11.3 g/dL Low 11.7-15. 5 [facility] [place] Comment on above: Performed By: #### C MP, CBCA, 1798-8, 95609-7, 5643-2, 3040-3, PINR, 30404-9 #### [facility] ([id number]) [address] [place] [address] Lymphocytes (Bld) [#/Vol] 2.3 10*3/uL Normal 1.0-3.5 [facility] [place] Comment on above: Performed By: #### C MP, CBCA, 1798-8, 66242-8, 5643-2, 3040-3, PINR, 47284-4 #### [facility] ([id number]) [address], [address] [place] [address] Lymphocytes/100 WBC (Bld) 31.8 % Normal [facility] [place] Comment on above: Performed By: #### C MP, CBCA, 1798-8, 13293-7, 5643-2, 3040-3, PINR, 59543-3 #### [facility] ([id number]) [address], [address] [place] [address] MCH (RBC) [Entitic mass] 31.6 pg Normal 27-34 [facility] [place] Comment on above: Performed By: #### C MP, CBCA, 1798-8, 26572-5, 5643-2, 3040-3, PINR, 25977-0 #### [facility] ([id number]) [address] [place] [address] MCHC (RBC) [Mass/Vol] 35.7 g/dL Normal 32-36 [facility] Comment on above: Performed By: #### C MP, CBCA, 1798-8, 08409-2, 5643-2, 3040-3, PINR, 09282-9 #### [facility] ([id number]) [address], [address] [place] [address] MCV (RBC) [Entitic vol] 89 fL Normal 80-100 [facility] Comment on above: Performed By: #### C MP, CBCA, 1798-8, 54145-2, 5643-2, 3040-3, PINR, 54844-9 #### [facility] ([id number]) [address], [address] [place] [address] Monocytes (Bld) [#/Vol] 0.6 10*3/uL Normal 0-0.9 [facility] [place] Comment on above: Performed By: #### C MP, CBCA, 1798-8, 12853-8, 5643-2, 3040-3, PINR, 26846-9 #### [facility] ([id number]) [address], [facility] [address] [place] [address] Monocytes/100 WBC (Bld) 7.7 % Normal [facility] Comment on above: Performed By: #### C MP, CBCA, 1798-8, 19886-9, 5643-2, 3040-3, PINR, 32635-1 #### [facility] ([id number]) [address], [facility] [address] [place] [address] Neutrophils/100 WBC (Bld) 55.6 % Normal [facility] [place] Comment on above: Performed By: #### C MP, CBCA, 1798-8, 56046-1, 5643-2, 3040-3, PINR, 93090-4 #### [facility] ([id number]) [address], [address] [place] [address] Platelet mean volume (Bld) [Entitic vol] 7.2 fL Normal 7-12 [facility] [place] Comment on above: Performed By: #### C MP, CBCA, 1798-8, 02827-9, 5643-2, 3040-3, PINR, 12406-7 #### [facility] ([id number]) [address], [address] [address] Platelets (Bld) [#/Vol] 223 10*3/uL Normal 150-450 [facility] [place] Comment on above: Performed By: #### C MP, CBCA, 8-8, 31990-0, 5643-2, 3040-3, PINR, 91919-3 #### [facility] ([id number]) [address] [address] [place] [address] RBC COUNT 3.57 X10E12/L Low 3.80-5.20 [facility] [place] Comment on above: Performed By: #### C MP, CBCA, 8-8, 35973-9, 5643-2, 3040-3, PINR, 97572-0 #### [facility] ([id number]) [address], [facility] [address] [place] [address] WBC (Bld) [#/Vol] 7.3 10*3/uL Normal 4.0-11.0 [facility] Comment on above: Performed By: #### C MP, CBCA, 1798-8, 97876-5, 5643-2, 3040-3, PINR, 13294-9 #### [facility] ([id number]) [address], [address] [address] CBC auto differentialon 08-2 -2023 Basophils (Bld) [#/Vol] 0.0 10*3/uL [facility] Basophils/100 WBC (Bld) 0.5 % [facility] Eosinophils (Bld) [#/Vol] 0.3 10*3/uL [facility] Eosinophils/100 WBC (Bld) 4.4 % [facility] Erythrocyte distribution width (RBC) [Ratio] 14.1 % 11.5 - 15.0 % [facility] Hematocrit (Bld) [Volume fraction] 31.6 % Low 35 - 47 % [facility] Hemoglobin (Bld) [Mass/Vol] 11.3 g/dL Low 11.7 - 15.5 g/dL [facility] Interpretation and review of laboratory results Abnormal [facility] Lymphocytes (Bld) [#/Vol] 2.3 10*3/uL [facility] Lymphocytes/100 WBC (Bld) 31.8 % [facility] MCH (RBC) [Entitic mass] 31.6 pg 27 - 34 pg [facility] MCHC (RBC) [Mass/Vol] 35.7 g/dL 32 - 3 6 g/dL [facility] MCV (RBC) [Entitic vol] 89 fL 80 - 100 fL [facility] Monocytes (Bld) [#/Vol] 0.6 10*3/uL [facility] Monocytes/100 WBC (Bld) 7.7 % [facility] Neutrophils (Bld) [#/Vol] 4.1 10*3/uL [facility] Neutrophils/100 WBC (Bld) 55.6 % [facility] Platelet mean volume (Bld) [Entitic vol] 7.2 fL 7 - 12 fL [facility] Platelets (Bld) [#/Vol] 223 10*3/uL [facility] RBC (Bld) [#/Vol] 3.57 10*6/uL [facility] WBC corrected for nucl RBC Auto (Bld) [#/Vol] 7.3 [facility] COMPREHENSIVE METABOLIC PANE Xiang 12-14-2023 Albumin [Mass/Vol] 3.5 g/dL Normal 3.2-5.3 [facility] Comment on above: Performed By: #### C MP, CBCA, 1798-8, 98045-2, 5643-2, 3040-3, PINR, 24594-1 #### [facility] ([id number]) [address], [address] [place] [address] ALP [Catalytic activity/Vol] 41 U/L Normal 39-130 [facility] [place] Comment on above: Performed By: #### C MP, CBCA, 1798-8, 34578-8, 5643-2, 3040-3, PINR, 27392-6 #### [facility] ([id number]) [address], [address] [place] [address] ALT [Catalytic activity/Vol] 10 U/L Normal 0-31 [facility] [place] Comment on above: Performed By: #### C MP, CBCA, 1798-8, 11985-8, 5643-2, 3040-3, PINR, 08285-1 #### [facility] ([id number]) [address], [address] [place] [address] Anion gap [Moles/Vol] 6 mmol/L Normal 5-15 [facility] Comment on above: Performed By: #### C MP, CBCA, 1798-8, 72215-4, 5643-2, 3040-3, PINR, 67479-7 #### [facility] ([id number]) [address] [place] [address] AST [Catalytic activity/Vol] 12 U/L Normal 0-41 [facility] [place] Comment on above: Performed By: #### C MP, CBCA, 1798-8, 30768-9, 5643-2, 3040-3, PINR, 35840-3 #### [facility] ([id number]) [address], [address] [place] [address] Bilirubin [Mass/Vol] 0.4 mg/dL Normal 0.3-1.2 [facility] Comment on above: Performed By: #### C MP, CBCA, 1798-8, 51488-2, 5643-2, 3040-3, PINR, 42222-2 #### [facility] ([id number]) [address] [place] [address] Calcium [Mass/Vol] 9.4 mg/dL Normal 8.5-10.5 [facility] Comment on above: Performed By: #### C MP, CBCA, 1798-8, 39324-9, 5643-2, 3040-3, PINR, 32672-5 #### [facility] ([id number]) [address], [address] [place] [address] Chloride [Moles/Vol] 107 mmol/L Normal 98-109 [facility] Comment on above: Performed By: #### C MP, CBCA, 1798-8, 73213-9, 5643-2, 3040-3, PINR, 81180-1 #### [facility] ([id number]) [address], [address] [place] [address] CO2 [Moles/Vol] 28 mmol/L Normal 22-32 [facility] [place] Comment on above: Performed By: #### C MP, CBCA, 1798-8, 49251-2, 5643-2, 3040-3, PINR, 70978-1 #### [facility] ([id number]) [address] [place] [address] Creatinine [Mass/Vol] 0.63 mg/dL Normal 0.40-1.00 [facility] Comment on above: Result Comment: METH OD TRACEABLE TO IDMS STANDARD Performed By: #### C MP, CBCA, 1798-8, 57945-6, 5643-2, 3040-3, PINR, 16950-7 #### [facility] ([id number]) [address] [place] [address] GFR/1.73 sq M.predicted among non-blacks MDRD (S/P/Bld) [Vol rate/Area] 88 mL/min/{1.73_m2} Normal >59 [facility] [place] Comment on above: Result Comment: Reported eGFR is based on the CKD-EPI 2020 equation that does not use a race coefficient. Performed By: #### C MP, CBCA, 1798-8, 84913-1, 5643-2, 3040-3, PINR, 10570-3 #### [facility] ([id number]) [address], [address] [place] [address] Glucose [Mass/Vol] 103 mg/dL High 65-99 [facility] Comment on above: Performed By: #### C MP, CBCA, 1798-8, 73047-5, 5643-2, 3040-3, PINR, 68390-1 #### [facility] ([id number]) [address] [place] [address] Potassium [Moles/Vol] 4.0 mmol/L Normal 3.5-5.0 [facility] Comment on above: Performed By: #### C MP, CBCA, 1798-8, 43722-7, 5643-2, 3040-3, PINR, 12667-9 #### [facility] ([id number]) [address] [place] [address] Protein [Mass/Vol] 6.3 g/dL Normal 6.0-8.0 [facility] Comment on above: Performed By: #### C MP, CBCA, 1798-8, 58683-0, 5643-2, 3040-3, PINR, 71030-9 #### [facility] ([id number]) [address] [place] [address] Sodium [Moles/Vol] 141 mmol/L Normal 134-146 [facility] Comment on above: Performed By: #### C MP, CBCA, 1798-8, 04288-9, 5643-2, 3040-3, PINR, 18634-8 #### [facility] ([id number]) [address] [place] [address] Urea nitrogen [Mass/Vol] 18 mg/dL Normal - [facility] Comment on above: Performed By: #### C MP, CBCA, 1798-8, 02648-0, 5643-2, 3040-3, PINR, 64094-9 #### [facility] ([id number]) [address] [place] [address] CT BRAIN WO CONTon CT BRAIN WO [...] Gamble MD on 12/14/2023 10:41 PM Normal [facility] CT BRAIN WO CONT CT BRAIN WO [...] or depressed calvarial fracture. Intracranial atherosclerosis. Absent kaibab lenses. Visualized mastoid air cells are well [...] Devendra Cabrera MD on 12/14/2023 3:[address] [facility] [address] Head WO contraston 2023 History: [...] Efraín Gamble MD on 12/14/2023 10:41 PM [facility] Richardson MD - 12/14/2023 History: SA[facility] Headache [...] Efraín Gamble MD on 12/14/2023 10:41 PM [facility] Radiology Study observation (narrative) [facility] CT BRAIN WO CONT: 12/14/2023 PROVIDED [...] or depressed calvarial fracture. Intracranial atherosclerosis. Absent kaibab lenses. Visualized mastoid air cells are well [...] or depressed calvarial fracture. Intracranial atherosclerosis. Absent kaibab lenses. Visualized mastoid air cells are well [...] Devendra Cabrera MD on 12/14/2023 3:08 PM [facility] Radiology Study observation (narrative) [facility] CT Head WO contrastOrdered B y: Efraín Gamble on 12-14-2023 [facility] Work Phone: CT Head WO contrastOrdered B y: Devendra Cabrera on 12-14-2023 [facility] Work Phone: Comprehensive metabolic pane xiang 12-14-2023 Albumin [Mass/Vol] 3.5 g/dL 3.2 - 5.3 g/dL [facility] ALP [Catalytic activity/Vol] 41 U/L 39 - 130 U/L [facility] ALT No additional P-5'-P [Catalytic activity/Vol] 10 U/L 0 - 31 U/L [facility] Anion gap [Moles/Vol] 6 mmol/L 5 - 15 mmol/L [facility] AST [Catalytic activity/Vol] 12 U/L 0 - 41 U/L [facility] Bilirubin [Mass/Vol] 0.4 mg/dL 0.3 - 1 .2 mg/dL [facility] Calcium [Mass/Vol] 9.4 mg/dL 8.5 - 10. 5 mg/dL [facility] Chloride [Moles/Vol] 107 mmol/L 98 - 10 9 mmol/L [facility] CO2 [Moles/Vol] 28 mmol/L 22 - 32 mmol/L [facility] Creatinine [Mass/Vol] 0.63 mg/dL 0.40 - 1.00 mg/dL [facility] Comment on above: METHOD TRACEABLE TO [facility] STANDARD eGFR (CKD-EPI)non-race dependent 88 - PINF [facility] Comment on above: Reported eGFR is based on the CKD-EPI 2020 equation that does not use a race coefficient. Glucose [Mass/Vol] 103 mg/dL High 65 - 99 mg/dL [facility] Interpretation and review of laboratory results Abnormal [facility] Potassium [Moles/Vol] 4.0 mmol/L 3.5 - 5.0 mmol/L [facility] Protein [Mass/Vol] 6.3 g/dL 6.0 - 8.0 g/dL [facility] Sodium [Moles/Vol] 141 mmol/L 134 - 146 mmol/L [facility] Urea nitrogen [Mass/Vol] 18 mg/dL 5 - 27 mg/dL [facility] DRUG SCREEN, URINEon 024 AMPHETAMINE/METHAMP Negative Normal NEG [facility] Comment on above: Result Comment: AMPH /METH screening cut off = 1000 ng/mL Performed By: #### C MP, CBCA, 8-8, 68849-7, 5643-2, 3040-3, PINR, 94053-0 #### [facility] ([id number]) [address], [address] [place] [address] BARBITURATES Negative Normal NEG [facility] Comment on above: Result Comment: Marisa iturates screening cut off value = 200 ng/mL Performed By: #### C MP, CBCA, 8-8, 63520-8, 5643-2, 3040-3, PINR, 27146-7 #### [facility] ([id number]) [address], [address] [place] [address] BENZODIAZEPINES Negative Normal NEG [facility] Comment on above: Result Comment: Pedro odiazepines screening cut off value = 200 ng/mL Performed By: #### C MP, CBCA, 1798-8, 49500-8, 5643-2, 3040-3, PINR, 36702-9 #### [facility] ([id number]) [address], [address] [place] [address] CANNABINOIDS Negative Normal NEG [facility] Comment on above: Result Comment: Rahel abinoids/THC screening cut off value = 50 ng/mL Performed By: #### C MP, CBCA, 1798-8, 88682-8, 5643-2, 3040-3, PINR, 46381-0 #### [facility] ([id number]) [address], [address] [place] [address] COCAINE METABOLITE Negative Normal NEG [facility] Comment on above: Result Comment: Coca ine screening cut off value = 300 ng/mL Performed By: #### C MP, CBCA, 1798-8, 54823-6, 5643-2, 3040-3, PINR, 52227-6 #### [facility] ([id number]) [address], [address] [place] [address] ECSTASY Negative Normal NEG [facility] Comment on above: Result Comment: Ecst asy screening cut off value = 500 ng/mL This report is intended for use in clinical monitoring or management of patients. Performed By: #### C MP, CBCA, 1798-8, 26265-3, 5643-2, 3040-3, PINR, 03275-5 #### [facility] ([id number]) [address], [address] [place] [address] METHADONE Negative Normal NEG [facility] Comment on above: Result Comment: Meth adone screening cut off value = 300 ng/mL. Performed By: #### C MP, CBCA, 1798-8, 67978-3, 5643-2, 3040-3, PINR, 40307-0 #### [facility] ([id number]) [address] [place] [address] OPIATES Negative Normal NEG [facility] Comment on above: Result Comment: Opia marina screening cut off value = 300 ng/mL NOTE: This test is used for the detection of codeine, hydrocodone (>1000 ng/mL), morphine and hydromorphone (>900 ng/mL) in urine. Performed By: #### C MP, CBCA, 1798-8, 58747-2, 5643-2, 3040-3, PINR, 45565-9 #### [facility] ([id number]) [address], [address] [place] [address] OXYCODONE Negative Normal NEG [facility] Comment on above: Result Comment: Oxyc odone screening cut off value = 300 ng/mL NOTE: This test is used for the detection of oxycodone and oxymorphone in urine. Performed By: #### C MP, CBCA, 1798-8, 31312-6, 5643-2, 3040-3, PINR, 58693-4 #### [facility] ([id number]) [address], [address] [place] [address] PHENCYCLIDINE Negative Normal NEG [facility] Comment on above: Result Comment: Phen cyclidine screening cut off value = 25 ng/mL Performed By: #### C MP, CBCA, 1798-8, 40838-6, 5643-2, 3040-3, PINR, 21789-2 #### [facility] ([id number]) [address], [address] [place] [address] Drug Screen, Urineon 024 Amphetamines Screen method >1000 ng/mL Ql (U) Negative Negative^N egative [facility] Comment on above: AMPH/METH screening cut off = 1000 ng/mL Barbiturates Screen Ql (U) Negative N egative^N egative [facility] Comment on above: Barbiturates screeni ng cut off value = 200 ng/mL Benzodiazepines Ql (U) Negative Negat torie^N egative [facility] Comment on above: Benzodiazepines scre ening cut off value = 200 ng/mL Cocaine Ql (U) Negative Negative^N [facility] Comment on above: Cocaine screening cu t off value = 300 ng/mL Methadone Screen Ql (U) Negative Nega tive^N [facility] Comment on above: Methadone screening cut off value = 300 ng/mL. Methylenedioxymethamphetami ne Screen Ql (U) Negative Negative^N [facility] Comment on above: Ecstasy screening cu t off value = 500 ng/mL This report is intended for use in clinical monitoring or management of patients. Opiates Screen Ql (U) Negative Negati ve^N [facility] Comment on above: Opiates screening cu t off value = 300 ng/mL NOTE: This test is used for the detection of codeine, hydrocodone (>1000 ng/mL), morphine and hydromorphone (>900 ng/mL) in urine. oxyCODONE Ql (U) Negative Negative^N [facility] Comment on above: Oxycodone screening cut off value = 300 ng/mL NOTE: This test is used for the detection of oxycodone and oxymorphone in urine. Phencyclidine Screen method >25 ng/mL Ql (U) Negative Negative^N [facility] Comment on above: Phencyclidine screen ing cut off value = 25 ng/mL Tetrahydrocannabinol Screen method >50 ng/mL Ql (U) Negative Negative^N [facility] Comment on above: Cannabinoids/THC scr eening cut off value = 50 ng/mL [facility] ETHANOLon 12-14-2023 Ethanol [Mass/Vol] mg/dL Normal 0.00-0.08 [facility] Comment on above: Result Comment: This report is intended for use in clinical monitoring or management of patients. Performed By: #### C MP, CBCA, 1798-8, 37587-9, 5643-2, 3040-3, PINR, 58537-9 #### [facility] ([id number]) [address], [address] [place] [address] Ethanolon 12-14-2023 Ethanol [Mass/Vol] g/dL 0.00 - 0.08 g/dL [facility] Comment on above: This report is intended for use in clinical monitoring or management of patients. Ethanol [Mass/Vol]on 024 [facility] Fibrinogenon 12-14-2023 Fibrinogen Coagulation.derived (PPP) [Mass/Vol] 347 mg/dL 190 - 480 mg/dL [facility] Fibrinogen Coagulation.deriv ed (PPP) [Mass/Vol]on 12-14-2023 FIBRINOGEN 347 mg/dL Normal 190-480 [facility] Comment on above: Performed By: #### C MP, CBCA, 1798-8, 39260-9, 5643-2, 3040-3, PINR, 00227-3 #### [facility] ([id number]) [address] [place] [address] [address] [place] [address] Glucose Glucometer (BldC) [M ass/Vol]on 12-14-2023 Glucose [Mass/Vol] 111 mg/dL High 65 - 99 mg/dL [facility] Interpretation and review of laboratory results Abnormal [facility] Glucose [Mass/Vol] 111 mg/dL High 65-99 [facility] Glucose [Mass/Vol] 99 mg/dL 65 - 99 mg/dL [facility] Glucose [Mass/Vol] 99 mg/dL Normal 65-99 [facility] Glucose [Mass/Vol] 132 mg/dL High 65 - 99 mg/dL [facility] Interpretation and review of laboratory results Abnormal [facility] Glucose [Mass/Vol] 132 mg/dL High 65-99 [facility] Glucose [Mass/Vol] 110 mg/dL High 65 - 99 mg/dL [facility] Interpretation and review of laboratory results Abnormal [facility] Glucose [Mass/Vol] 110 mg/dL High 65-99 [facility] LIPASEon 12-14-2023 Lipase [Catalytic activity/Vol] 45 U/L Normal 11-82 [facility] Comment on above: Performed By: #### C MP, CBCA, 1798-8, 36903-5, 5643-2, 3040-3, PINR, 48799-2 #### [facility] ([id number]) [address], [address] [place] [address] Lipaseon 12-14-2023 Lipase [Catalytic activity/Vol] 45 U/L 11 - 82 U/L [facility] No Panel Informationon 12-13 [facility] PROTIME AND INRon 12-14-2023 INR Coag (PPP) [Relative time] 0.9 {INR} Normal 0.8-1.1 [facility] Comment on above: Performed By: #### C MP, CBCA, 8-8, 33717-3, 5643-2, 3040-3, PINR, 39153-8 #### [facility] ([id number]) [address], [address] [place] [address] PT Coag (PPP) [Time] 10.2 s Normal 9.8-13.2 [facility] Comment on above: Performed By: #### C MP, CBCA, 1797-8, 41798-9, 5643-2, 3040-3, PINR, 11627-8 #### [facility] ([id number]) [address] [place] [address] Protime & INRon 12-14-2023 INR Coag (PPP) [Relative time] 0.9 {INR} [facility] PT Coag (PPP) [Time] 10.2 s [facility] Troponin I, High Sensitivity 3 Houron 12-14-2023 Troponin I.cardiac High sensitivity method [Mass/Vol] 7 ng/L NINF - 16 ng/L [facility] Troponin I.cardiac High sens itivity method [Mass/Vol]on 12-14-2023 [facility] 3 HOUR TROP I, HIGH SENSITIVITY 7 ng/L Normal <16 [facility] Comment on above: Performed By: #### C MP, CBCA, 1798-8, 23775-1, 5643-2, 3040-3, PINR, 69523-9 #### [facility] ([id number]) [address], [address] [place] [address] Type and screen(includes ind irect med)on 12-14-2023 ABO A [facility] Rh Nom (Bld) Positive [facility] URINALYSISon 12-14-2023 Bilirubin Ql (U) Negative Normal NEG [facility] Comment on above: Performed By: #### C MP, CBCA, 1798-8, 05490-4, 5643-2, 3040-3, PINR, 44705-6 #### [facility] ([id number]) [address], [address] [place] [address] BLOOD/HGB Negative Normal NEG [facility] Comment on above: Performed By: #### C MP, CBCA, 1798-8, 90046-4, 5643-2, 3040-3, PINR, 35665-2 #### [facility] ([id number]) [address], [address] [place] [address] Color (U) YELLOW Normal YELLOW [facility] Comment on above: Performed By: #### C MP, CBCA, 1798-8, 82412-1, 5643-2, 3040-3, PINR, 13121-1 #### [facility] ([id number]) [address], [address] [place] [address] Glucose Ql (U) Negative Normal NEG [facility] Comment on above: Performed By: #### C MP, CBCA, 1798-8, 56892-6, 5643-2, 3040-3, PINR, 07472-3 #### [facility] ([id number]) [address], [address] [place] [address] Ketones Ql (U) Negative Normal NEG [facility] Comment on above: Performed By: #### C MP, CBCA, 1798-8, 89797-3, 5643-2, 3040-3, PINR, 65833-4 #### [facility] ([id number]) [address] [address] Leukocyte esterase Test strip Ql (U) Negative Normal NEG [facility] Comment on above: Performed By: #### C MP, CBCA, 1798-8, 70809-6, 5643-2, 3040-3, PINR, 57971-8 #### [facility] ([id number]) [address] [address] Nitrite Ql (U) Negative Normal NEG [facility] Comment on above: Performed By: #### C MP, CBCA, 1798-8, 99266-2, 5643-2, 3040-3, PINR, 51816-6 #### [facility] ([id number]) [address] [address] pH (U) 6.5 [pH] Normal 5.0-8.5 [facility] Comment on above: Performed By: #### C MP, CBCA, 1798-8, 19831-5, 5643-2, 3040-3, PINR, 44471-4 #### [facility] ([id number]) [address] [address] Protein Ql (U) Negative Normal NEG [facility] Comment on above: Performed By: #### C MP, CBCA, 1798-8, 01495-6, 5643-2, 3040-3, PINR, 05611-5 #### [facility] ([id number]) [address] [address] Specific gravity (U) [Rel density] 1.008 Normal 1.003-1.03 5 [facility] Comment on above: Performed By: #### C MP, CBCA, 1798-8, 39359-0, 5643-2, 3040-3, PINR, 58585-8 #### [facility] ([id number]) [address], [address] [address] TURBIDITY CLEAR Normal CLEAR [facility] Comment on above: Performed By: #### C MP, CBCA, 1798-8, 69589-1, 5643-2, 3040-3, PINR, 42848-4 #### [facility] ([id number]) [address], [address] [address] Urinalysis dipstick W Reflex Microscopic panel (U) URINE RECEIVED WITHOUT PRESERVATIVE-DELAY S IN TRANSPORT MAY AFFECT RESULTS.INTERPRET WITH CAUTION AND CLINICAL CORRELATION IS RECOMMENDED. Normal [facility] Comment on above: Performed By: #### C MP, CBCA, 1798-8, 72924-2, 5643-2, 3040-3, PINR, 33449-2 #### [facility] ([id number]) [address], [address] [address] Urobilinogen (U) [Mass/Vol] mg/dL Normal <1.1 [facility] Comment on above: Performed By: #### C MP, CBCA, 1798-8, 61172-0, 5643-2, 3040-3, PINR, 40332-1 #### [facility] ([id number]) [address], [address] [address] Urinalysison 12-14-2023 Bilirubin Ql (U) Negative Negative^N [...] test strip Ql (U) Negative Negative^N egative [facility] pH (U) 6.5 [pH] 5.0 - 8.5 [facility] Protein (U) [Mass/Vol] Negative Negat torie^N egative mg/dL [facility] Specific gravity Refractometry automated (U) [Rel density] 1.008 1.003 - 1.035 [facility] [employer] Turbidity Ql (U) CLEAR CLEAR^CAL R [facility] Urinalysis microscopic panel Auto (Urine sed) [#/Area] URINE RECEIVED WITHOUT PRESERVATIVE-DELAY S IN TRANSPORT MAY AFFECT RESULTS.INTERPRET WITH CAUTION AND CLINICAL CORRELATION IS RECOMMENDED. [facility] Urobilinogen Qn (U) NINF [facility] XR CHEST 1 VWon 12-14-2023 XR CHEST [...] Herrmann MD on 12/14/2023 5:25 AM Normal [facility] XR Chest Single viewon 12-13 Clinical History: Trauma. Portable Upright chest: 12/14/2023 Comparison: None Findings: A single portable view of the chest was obtained. Is mild cardiac prominence. Pulmonary vessels are not enlarged. No pneumothorax or focal infiltrate is evident. There is no visible pleural effusion. IMPRESSION: No acute infiltrate. 54 Finalized by Vel Herrmann MD on 12/14/2023 5:25 AM [facility]qbal MD - 12/14/2023 Clinical History: Trauma. Portable Upright chest: 12/14/2023 Comparison: None Findings: A single portable view of the chest was obtained. Is mild cardiac prominence. Pulmonary vessels are not enlarged. No pneumothorax or focal infiltrate is evident. There is no visible pleural effusion. IMPRESSION: No acute infiltrate. 54 Finalized by Vel Herrmann MD on 12/14/2023 5:25 AM [employer] Radiology Study observation (narrative) [employer] XR Chest Single viewOrdered By: Vel Herrmann on 12-14-2023 [employer] Work Phone: aPTT Coag (PPP) [Time]on aPTT Coag (Bld) [Time] 30 s Normal 26-37 Pr [facility] Comment on above: Performed By: #### C MP, CBCA, 1798-8, 63569-0, 5643-2, 3040-3, PINR, 36844-6 #### [facility] ([id number]) [address] [place] [address], [address] [place] [address] LIPID PROFILEon 04-28-2022 CHOL-HDL RATIO NORM SEE BELOW Normal [facility] Comment on above: Result Comment: 3.3 - 4.4 LOW RISK 4.4 - 7.1 AVERAGE RISK 7.1 - 11.0 MODERATE RISK >11.0 HIGH RISK Performed By: #### L IPID, LIVER #### [facility] [address] [address] [address] Dora Mora Cholesterol [Mass/Vol] 199 mg/dL Normal <=200 [facility] Comment on above: Performed By: #### L IPID, LIVER #### [facility] [address] [address] [address] Dora Mora Cholesterol in HDL [Mass/Vol] 75 mg/dL Critically high 40-60 [facility] Comment on above: Performed By: #### L IPID, LIVER #### [facility] [address] [address] [address] Dora Mora Cholesterol in LDL [Mass/Vol] 86.2 mg/dL Normal [facility] Comment on above: Performed By: #### L IPID, LIVER #### [facility] [address] [address] [address] Dora Mora Cholesterol.total/Cholester ol in HDL [Mass ratio] 2.7 {ratio} Normal [facility] Comment on above: Performed By: #### L IPID, LIVER #### [facility] [address] [address] [address] Dora Mora HDL NORMAL > or = 60 mg/dl - LOW CARDIOVASCULAR RISK <40 mg/dl - HIGH CARDIOVASCULAR RISK Normal [facility] Comment on above: Performed By: #### L IPID, LIVER #### [facility] [address] [address] [address] Dora Mora LDL CALC NORMAL SEE BELOW Normal [facility] Comment on above: Result Comment: <100 mg/dl OPTIMAL 100 - 129 mg/dl NEAR OR ABOVE OPTIMAL 130 - 159 mg/dl BORDERLINE HIGH 160 - 189 mg/dl HIGH >190 mg/dl VERY HIGH Performed By: #### L IPID, LIVER #### [facility] [address] [address] [address] Dora Mora Triglyceride [Mass/Vol] 189 mg/dL Critically high <=150 [facility] Comment on above: Performed By: #### L IPID, LIVER #### [facility] [address] [place] [address] Dr. Dora Mora VLDL CALC 37.8 mg/dL Normal [facility] Comment on above: Performed By: #### L IPID, LIVER #### [facility] [address] [place] [address] Dr. Dora Mora LIVER PROFILEon 04-28-2022 Albumin [Mass/Vol] 3.7 g/dL Normal 3.4-5.0 [facility] Comment on above: Performed By: #### L IPID, LIVER #### [facility] [address] [address] [address] Dora Mora Albumin/Globulin [Mass ratio] 1.0 {ratio} Normal [facility] Comment on above: Performed By: #### L IPID, LIVER #### [facility] [address] [address] [address] Dora Mora ALP [Catalytic activity/Vol] 62 U/L Normal 46-116 [facility] Comment on above: Performed By: #### L IPID, LIVER #### [facility] [address] [address] [address] Dora Mora ALT [Catalytic activity/Vol] 18 U/L Normal 14-59 [facility] Comment on above: Performed By: #### L IPID, LIVER #### [facility] [address] [address] [address] Dora Mora AST [Catalytic activity/Vol] 19 U/L Normal 15-37 [facility] Comment on above: Performed By: #### L IPID, LIVER #### [facility] [address] [address] [address] Dora Mora BILI, CONJUGATED 0.1 mg/dL Normal 0.0-0.2 [facility] Comment on above: Performed By: #### L IPID, LIVER #### [facility] [address] [address] [address] Dora Mora Bilirubin [Mass/Vol] 0.5 mg/dL Normal 0.2-1.0 [facility] Comment on above: Performed By: #### L IPID, LIVER #### [facility] [address] [address] [address] Dora Mora Globulin (S) [Mass/Vol] 3.7 g/dL Normal T [facility] Comment on above: Performed By: #### L IPID, LIVER #### [facility] [address] [address] [address] Dora Mora Protein [Mass/Vol] 7.4 g/dL Normal 6.4-8.2 [facility] Comment on above: Performed By: #### L IPID, LIVER #### [facility] [address] [address] [address] Dora Mora XR KUB 1 VIEWon [...] SHEMAR ARELLANO Date: 2022-03-22 12:08 Normal [facility] INSULINon 01-21-2022 Insulin 16.5 uIU/mL Normal 2.6-24.9 [facility] Comment on above: Performed By: #### I NSULIN #### [facility] [address] [place] [address] Dr. Dora Mora CBC AUTO DIFFon 01-20-2022 BASO # 0.0 103/ul Normal 0.0-0.1 [facility] Comment on above: Performed By: #### L IPID, LIVER #### [facility] [address] [place] [address] Dr. Dora Mora Basophils/100 WBC (Bld) 0.5 % Normal 0.2-2.0 [facility] Comment on above: Performed By: #### L IPID, LIVER #### [facility] [address] [place] [address] Dr. Dora Mora EO # 0.2 103/ul Normal 0.0-0.7 [facility] Comment on above: Performed By: #### L IPID, LIVER #### [facility] [address] [place] [address] Dr. Dora Mora Eosinophils/100 WBC (Bld) 2.4 % Normal 0.9-7.0 [facility] Comment on above: Performed By: #### L IPID, LIVER #### [facility] [address] [place] [address] Dr. Dora Mora Erythrocyte distribution width (RBC) [Ratio] 12.9 % Normal 11.0-15.0 [facility] Comment on above: Performed By: #### L IPID, LIVER #### [facility] [address] [place] [address] Dr. Dora Mora Hematocrit (Bld) [Volume fraction] 39.9 % Normal 36.0-48.0 [facility] Comment on above: Performed By: #### L IPID, LIVER #### [facility] [address] [address] [address] Dora Mora Hemoglobin (Bld) [Mass/Vol] 13.4 g/dL Normal 12.0-16. 0 [facility] Comment on above: Performed By: #### L IPID, LIVER #### [facility] [address] [place] [address] Dr. Dora Mora IG # 0.07 10e3/ul Critically high 0.00-0.03 [facility] Comment on above: Performed By: #### L IPID, LIVER #### [facility] [address] [place] [address] Dr. Dora Mora IG % 0.9 % Critically high 0.0-0.5 [facility] Comment on above: Performed By: #### L IPID, LIVER #### [facility] [address] [place] [address] Dr. Dora Mora LYMPH # 2.5 103/ul Normal 1.2-3.8 The [facility] Comment on above: Performed By: #### L IPID, LIVER #### [facility] [address] [place] [address] Dr. Dora Mora Lymphocytes/100 WBC (Bld) 32.4 % Normal 20.5-60.0 [facility] Comment on above: Performed By: #### L IPID, LIVER #### [facility] [address] [place] [address] Dr. Dora Mora MANUAL DIFF REQ NO Normal [facility] Comment on above: Performed By: #### L IPID, LIVER #### [facility] [address] [place] [address] Dr. Dora Mora MCH (RBC) [Entitic mass] 30.1 pg Normal 26.7-34.0 The [facility] Comment on above: Performed By: #### L IPID, LIVER #### [facility] [address] [place] [address] Dr. Dora Mora MCHC (RBC) [Mass/Vol] 33.6 g/dL Normal 29.9-35.2 [facility] Comment on above: Performed By: #### L IPID, LIVER #### [facility] [address] [place] [address] Dr. Dora Mora MCV (RBC) [Entitic vol] 89.7 fL Normal 81.0-99.0 [facility] Comment on above: Performed By: #### L IPID, LIVER #### [facility] [address] [place] [address] Dr. Dora Mora MONO # 0.5 103/ul Normal 0.3-0.8 [facility] Comment on above: Performed By: #### L IPID, LIVER #### [facility] [address] [place] [address] Dr. Dora Mora Monocytes/100 WBC (Bld) 6.5 % Normal 1.7-12.0 [facility] Comment on above: Performed By: #### L IPID, LIVER #### [facility] [address] [place] [address] Dr. Dora Mora NEUT # 4.3 103/ul Normal 1.4-6.5 [facility] Comment on above: Performed By: #### L IPID, LIVER #### [facility] [address] [place] [address] Dr. Dora Mora Neutrophils/100 WBC (Bld) 57.3 % Normal 43.0-75.0 [facility] Comment on above: Performed By: #### L IPID, LIVER #### [facility] [address] [place] [address] Dr. Dora Mora Platelet mean volume (Bld) [Entitic vol] 9.2 fL Critically low 9.5-13.5 [facility] Comment on above: Performed By: #### L IPID, LIVER #### [facility] [address] [place] [address] Dr. Dora Mora PLT 261 103/ul Normal 150-450 [facility] Comment on above: Performed By: #### L IPID, LIVER #### [facility] [address] [place] [address] Dr. Dora Mora RBC 4.45 106/ul Normal 4.20-5.40 [facility] Comment on above: Performed By: #### L IPID, LIVER #### [facility] [address] [place] [address] Dr. Dora Mora WBC 7.6 103/ul Normal 4.0-11.0 [facility] Comment on above: Performed By: #### L IPID, LIVER #### [facility] [address] [place] [address] Dr. Dora Mora FREE THYROXINE INDEX T7on FTI 2.93 Normal 1.30-4.50 [facility] Comment on above: Performed By: #### C MP, TSH, T7, LIPID #### [facility] [address] [place] [address] Dr. Dora Mora T3U 38.0 % Normal 30.0-39.0 [facility] Comment on above: Performed By: #### C MP, TSH, T7, LIPID #### [facility] [address] [place] [address] Dr. Dora Mora T4 [Mass/Vol] 7.70 ug/dL Normal 4.80-13.90 [facility] Comment on above: Performed By: #### C MP, TSH, T7, LIPID #### [facility] [address] [place] [address] Dr. Dora Mora GLYCOHEMOGLOBIN A1Con 2021 ADA RECOMMENDATION SEE BELOW Normal [facility] Comment on above: Result Comment: ADA RECOMMENDED LIMIT 4.0 - 6.0 ADA THERAPEUTIC TARGET < 7.0 ACTION SUGGESTED > 7.0 Performed By: #### A 1C #### [facility] [address] [place] [address] Dr. Dora Mora Glucose [Mass/Vol] 148 mg/dL Normal [facility] Comment on above: Performed By: #### A 1C #### [facility] [address] [place] [address] Dr. Dora Mora HbA1c (Bld) [Mass fraction] 6.8 % Critically high 4.5 -6.2 [facility] Comment on above: Performed By: #### A 1C #### [facility] [address] [address] [address] Dora Mora IRONon 01-20-2022 Iron [Mass/Vol] 88.0 ug/dL Normal 50.0-170.0 [facility] Comment on above: Performed By: #### I ROMAN CABEZASAD #### [facility] [address] [address] [address] Dora Mora LIPID PROFILEon 01-20-2022 CHOL-HDL RATIO NORM SEE BELOW Normal [facility] Comment on above: Result Comment: 3.3 - 4.4 LOW RISK 4.4 - 7.1 AVERAGE RISK 7.1 - 11.0 MODERATE RISK >11.0 HIGH RISK Performed By: #### L IPID, LIVER #### [facility] [address] [address] [address] Dora Mora Cholesterol [Mass/Vol] 180 mg/dL Normal <=200 [facility] Comment on above: Performed By: #### L IPID, LIVER #### [facility] [address] [address] [address] Dora Mora Cholesterol in HDL [Mass/Vol] 64 mg/dL Critically high 40-60 [facility] Comment on above: Performed By: #### L IPID, LIVER #### [facility] [address] [address] [address] Dora Mora Cholesterol in LDL [Mass/Vol] 55.4 mg/dL Normal [facility] Comment on above: Performed By: #### L IPID, LIVER #### [facility] [address] [address] [address] Dora Mora Cholesterol.total/Cholester ol in HDL [Mass ratio] 2.8 {ratio} Normal [facility] Comment on above: Performed By: #### L IPID, LIVER #### [facility] [address] [place] [address] Dr. Dora Mora HDL NORMAL > or = 60 mg/dl - LOW CARDIOVASCULAR RISK <40 mg/dl - HIGH CARDIOVASCULAR RISK Normal [facility] Comment on above: Performed By: #### L IPID, LIVER #### [facility] [address] [place] [address] Dr. Dora Mora LDL CALC NORMAL SEE BELOW Normal [facility] Comment on above: Result Comment: <100 mg/dl OPTIMAL 100 - 129 mg/dl NEAR OR ABOVE OPTIMAL 130 - 159 mg/dl BORDERLINE HIGH 160 - 189 mg/dl HIGH >190 mg/dl VERY HIGH Performed By: #### L IPID, LIVER #### [facility] [address] [address] [address] Dora Mora Triglyceride [Mass/Vol] 303 mg/dL Critically high <=150 [facility] Comment on above: Performed By: #### L IPID, LIVER #### [facility] [address] [address] [address] Dora Mora VLDL CALC 60.6 mg/dL Normal [facility] Comment on above: Performed By: #### L IPID, LIVER #### [facility] [address] [place] [address] Dr. Dora Mora PROF 14(COMP METB)on 022 Albumin [Mass/Vol] 3.4 g/dL Normal 3.4-5.0 [facility] Comment on above: Performed By: #### C MP, TSH, T7, LIPID #### [facility] [address] [address] [address] Dora Mora Albumin/Globulin [Mass ratio] 0.9 {ratio} Normal [facility] Comment on above: Performed By: #### C MP, TSH, T7, LIPID #### [facility] [address] [address] [address] Dora Mora ALP [Catalytic activity/Vol] 61 U/L Normal 46-116 [facility] Comment on above: Performed By: #### C MP, TSH, T7, LIPID #### [facility] [address] [address] [address] Dora Mora ALT [Catalytic activity/Vol] 22 U/L Normal 14-59 [facility] Comment on above: Performed By: #### C MP, TSH, T7, LIPID #### [facility] [address] [address] [address] Dora Mora Anion gap [Moles/Vol] 10.9 mmol/L Normal Th e [facility] Comment on above: Performed By: #### C MP, TSH, T7, LIPID #### [facility] [address] [address] [address] Dora Mora AST [Catalytic activity/Vol] 13 U/L Critically low 15-37 [facility] Comment on above: Performed By: #### C MP, TSH, T7, LIPID #### [facility] [address] [address] [address] Dora Mora Bilirubin [Mass/Vol] 0.6 mg/dL Normal 0.2-1.0 [facility] Comment on above: Performed By: #### C MP, TSH, T7, LIPID #### [facility] [address] [address] [address] Dora Mora Calcium [Mass/Vol] 9.4 mg/dL Normal 8.5-10.1 [facility] Comment on above: Performed By: #### C MP, TSH, T7, LIPID #### [facility] [address] [place] [address] Dr. Dora Mora Chloride [Moles/Vol] 103 mmol/L Normal 98-107 [facility] Comment on above: Performed By: #### C MP, TSH, T7, LIPID #### [facility] [address] [place] [address] Dr. Dora Mora CO2 [Moles/Vol] 28.6 mmol/L Normal 21.0-32.0 [facility] Comment on above: Performed By: #### C MP, TSH, T7, LIPID #### [facility] [address] [place] [address] Dr. Dora Mora Creatinine [Mass/Vol] 0.86 mg/dL Normal 0.55-1.02 [facility] Comment on above: Performed By: #### C MP, TSH, T7, LIPID #### [facility] [address] [place] [address] Dr. Dora Mora EGFR-AF GUATEMALAN >60 Normal >=60 [facility] Comment on above: Performed By: #### C MP, TSH, T7, LIPID #### [facility] [address] [address] [address] Dora Mora EGFR-NON AF GUATEMALAN >60 Normal >=60 [facility] Comment on above: Performed By: #### C MP, TSH, T7, LIPID #### [facility] [address] [address] [address] Dora Mora Globulin (S) [Mass/Vol] 3.6 g/dL Normal [facility] Comment on above: Performed By: #### C MP, TSH, T7, LIPID #### [facility] [address] [address] [address] Dora Mora Glucose [Mass/Vol] 167 mg/dL Critically high 74-106 [facility] Comment on above: Performed By: #### C MP, TSH, T7, LIPID #### [facility] [address] [address] [address] Dora Mora Potassium [Moles/Vol] 4.5 mmol/L Normal 3.5-5.1 [facility] Comment on above: Performed By: #### C MP, TSH, T7, LIPID #### [facility] [address] [address] [address] Dora Mora Protein [Mass/Vol] 7.0 g/dL Normal 6.4-8.2 [facility] Comment on above: Performed By: #### C MP, TSH, T7, LIPID #### [facility] [address] [address] [address] Dora Mora Sodium [Moles/Vol] 138 mmol/L Normal 136-145 [facility] Comment on above: Performed By: #### C MP, TSH, T7, LIPID #### [facility] [address] [address] [address] Dora Mora Urea nitrogen [Mass/Vol] 20.0 mg/dL Critically high 7.0-18 .0 [facility] Comment on above: Performed By: #### C MP, TSH, T7, LIPID #### [facility] [address] [address] [address] Dora Mora Urea nitrogen/Creatinine [Mass ratio] 23.3 mg/mg Normal [facility] Comment on above: Performed By: #### C MP, TSH, T7, LIPID #### [facility] [address] [place] [address] Dr. Dora Mora TSHon 01-20-2022 TSH 1.657 uIU/mL Normal 0.358-3.74 0 [facility] Comment on above: Performed By: #### C MP, TSH, T7, LIPID #### [facility] [address] [place] [address] Dr. Dora Mora VITAMIN D 25 OHon 01-20-2022 VIT D 25-OH 96.7 ng/mL Normal [facility] Comment on above: Performed By: #### I JOCELYNN, VITAD #### [facility] [address] [place] [address] Dr. Dora Mora VIT D RANGES SEE BELOW Normal [facility] Comment on above: Result Comment: <20 ng/mL Vit D deficient 20 - <30 ng/mL Vit D insufficient 30 - 100 ng/mL Vit D sufficient >100 ng/mL Potential Toxicity Performed By: #### I JOCELYNN, VITAD #### [facility] [address] [place] [address] Dr. Dora Mora Vital Signs Date Time Vital Sign Value Performing Clinician Nithin bhatti 04-02-2024 09:58-0500 Blood Pressure Location Ruiz DEVINE [facility] 04-02-2024 09:58-0500 Body temperature 98.6 [degF] Ruiz DEVINE [facility] 04-02-2024 09:58-0500 Diastolic blood pressure 58 mm[Hg] Ruiz DEVINE [facility] 04-02-2024 09:58-0500 Heart rate 61 /min Ruiz DEVINE [facility] 04-02-2024 09:58-0500 Respiratory rate 16 /min Ruiz DEVINE [facility] 04-02-2024 09:58-0500 Systolic blood pressure 124 mm[Hg] Ruiz DEVINE [facility] 12-20-2023 11:12-0400 Diastolic blood pressure 58 mm[Hg] Kyle Horton MD Work Phone: [facility] 12-20-2023 11:12-0400 Heart rate 70 /min Kyle Horton MD Work Phone: [facility] 12-20-2023 11:12-0400 Respiratory rate 24 /min Kyle Horton MD Work Phone: [facility] 12-20-2023 11:12-0400 Systolic blood pressure 115 mm[Hg] Kyle Horton MD Work Phone: [facility] 12-20-2023 11:11-0400 Body temperature 97.2 [degF] Kyle Horton MD Work Phone: [facility] 12-20-2023 07:52-0400 SaO2% (BldA) [Mass fraction] 95 % Kyle Horton MD Work Phone: [facility] 12-15-2023 01:36-0400 Body mass index (BMI) [Ratio] 25.54 kg/m2 Kyle Horton MD Work Phone: [facility] 12-15-2023 01:36-0400 Body weight 65.4 kg Kyle Horton MD Work Phone: [facility] 12-14-2023 06:15-0400 Body height 160 cm Kyle Horton MD Work Phone: [facility] 04-02-2022 08:12-0500 Blood Pressure Location Ruizfernando DEVINE [facility] 04-02-2022 08:12-0500 Diastolic blood pressure 72 mm[Hg] Ruiz DEVINE [facility] 04-02-2022 08:12-0500 Heart rate 68 /min Ruiz DEVINE [facility] 04-02-2022 08:12-0500 Respiratory rate 16 /min Ruiz DEVINE [facility] 04-02-2022 08:12-0500 Systolic blood pressure 124 mm[Hg] Ruiz DEVINE [facility] Encounters Encounter Date Encounter Type Care Provider Facility Start: 07-25-2024 End: 07-25-2024 ambulatory [facility] Start: 06-04-2024 End: 06-04-2024 ambulatory [facility] Start: 04-02-2024 End: 04-02-2024 ambulatory Ruiz DEVINE Facility:[facility] Start: 04-02-2024 End: 04-02-2024 Patient encounter procedure Ruiz DEV[facility] Start: 12-23-2023 End: 12-23-2023 [facility] Start: 12-17-2023 End: 12-21-2023 Evaluation and management of inpatient CHIO AYOUB [facility] Start: 12-15-2023 End: 12-21-2023 Evaluation and management of inpatient JOHNSON DEGROOT [facility] Start: 12-15-2023 End: 12-15-2023 ambulatory DESHAWN PIRES [facility] Start: 12-14-2023 End: 12-21-2023 [facility] 12-14-2023 ambulatory [facility] Start: 12-14-2023 End: 12-21-2023 Evaluation and management of inpatient JODIE SOSA [facility] Start: 12-14-2023 End: 12-21-2023 Emergency department patient visit CHIO [facility] Start: 12-14-2023 End: 12-20-2023 Evaluation and management of inpatient SHAWN [facility] Comment on above: ICH (intracerebral h emorrhage) ([facility]) (Primary Dx) Start: 12-14-2023 ambulatory [facility] Start: 06-09-2022 End: 07-07-[address] JENNIFER KC . Facility: Start: 04-28-2022 End: 04-29-[address] JENNIFER KC . Facility:[facility] Start: 04-02-2022 End: 04-02-2022 Patient encounter procedure Ruiz DEVINE [facility] Start: 03-22-2022 End: 03-23-[address] [...] metabolic pane l calcium total Chio Ayoub [employer] PRODUCTION ASSOCIATE-SENIOR PRODUCT ENGINEER Work Phone: Start: 12-19-2023 Gluc bld gluc [...] metabolic pane l calcium total Chiobooker Ayoub FO[employer] PRODUCTION ASSOCIATE-SENIOR PRODUCT ENGINEER Work Phone: Start: 12-18-2023 Gluc bld gluc [...] metabolic pane l calcium total Chio Ayoub FOOD PRODUCTION ASSOCIATE-SENIOR PRODUCT ENGINEER Work Phone: Start: 12-17-2023 Gluc bld gluc [...] veins c omplete bilateral study Chio Ayoub FOOD PRODUCTION ASSOCIATE-[facility] Work Phone: Start: 12-17-2023 Gluc bld gluc mntr d ev cleared fda spec home use Kyle Horton MD Work Phone: Start: 12-17-2023 Basic metabolic pane l calcium total Chiobooker Ayoub [facility] Work Phone: Start: 12-16-2023 Gluc bld [...] Kyle Horton MD Work Phone: Start: 12-16-2023 Basic metabolic pane l calcium total Chio Ayoub [facility] Work Phone: Start: 12-15-2023 Gluc bld [...] Basic metabolic panel calcium total Chioadam Ayoub FO[employer] PRODUCTION ASSOCIATE-SENIOR PRODUCT ENGINEER Work Phone: Start: 12-14-2023 Ct head/brain w/o co ntrast material Chio Ayoub FO[employer] PRODUCTION ASSOCIATE-SENIOR PRODUCT ENGINEER Work Phone: Start: 12-14-2023 Gluc bld gluc mntr d ev cleared fda spec home use Kyle Horton MD Work Phone: Start: 12-14-2023 Gluc bld gluc mntr d ev cleared fda spec home use Kyle Horton MD Work Phone: Start: 12-14-2023 Ct head/brain w/o co ntrast material Jodie Adornoggins FOOD PRODUCTION ASSOCIATE-SENIOR PRODUCT ENGINEER Work Phone: Start: 12-14-2023 End: 12-14-2023 Gluc bld gluc mntr dev cleared fda spec home use Kyle Horton MD Work Phone: Start: 12-14-2023 Antibody screen Kyle Horton MD Work Phone: Start: 12-14-2023 Gluc bld gluc mntr d ev cleared fda spec home use Kyle Horton MD Work Phone: Start: 12-14-2023 End: 12-14-2023 Blood typing serologic abo Chio hyman FOOD PRODUCTION ASSOCIATE-SENIOR PRODUCT ENGINEER Work Phone: Start: 12-14-2023 REPEATED ABORH Eneida Ayoub FOOD PRODUCTION ASSOCIATE-SENIOR PRODUCT ENGINEER Work Phone: Start: 12-14-2023 Urnls dip stick/tabl et rgnt auto w/o microscopy Chio Ayoub FOOD PRODUCTION ASSOCIATE-SENIOR PRODUCT ENGINEER Work Phone: Start: 12-14-2023 Radiologic exam ches t single view Chio Ayoub FOOD PRODUCTION ASSOCIATE-SENIOR PRODUCT ENGINEER Work Phone: Start: 12-14-2023 Comprehensive metabolic panel Chio Ayoub FOOD PRODUCTION ASSOCIATE-SENIOR PRODUCT ENGINEER Work Phone: Start: 12-14-2023 Ethanol [Mass/volume ] in Serum or Plasma Chio Nii Bet[place] FO[employer] PRODUCTION ASSOCIATE-SENIOR PRODUCT ENGINEER Work Phone: Start: 04-28-2021 Excisional biopsy Xin [...] Provider Eliane santiago 04-03-2021 SARS-CoV-2 (COVID-19 ) mRNA-7321 vaccine Ruiz DEVINE [facility] 09-25-2020 SARS-CoV-2 (COVID-19 ) mRNA-1273 vaccine Ruiz DEVINE [facility] 08-18-2020 SARS-CoV-2 (COVID-19 ) mRNA-1273 vaccine Ruiz DEVINE [facility] 04-18-2020 SARS-CoV-2 (COVID-19 ) mRNA-1273 vaccine Ruiz DEVINE [facility] Comment on above: Result Comment: pt d oes not have her card and can not remember the dates Payers Date Payer Category Payer Private Health Insurance [employer] [id number] 2015-Present [phone] [address] [address] [place] [address] [id number] 2005 Medicare MEDICARE MEDICAR E PART A & B [id number] 2005-Present [phone] [address] [place] [address] [id number] 1959 Medicare [id number] 1959 Private Health Insurance [id number] 1940 Unknown [id number] [id number] .2.59 1940 Unknown [id number] 2.16.840.1.698461.3.579 .2.593 1940 Unknown [id number] 2.16.840.1.902483.3.579 .2.593 1940 Unknown [id number] 2.16.840.1.326830.3.579 .2.593 1940 Unknown [id number] 2.16.840.1.331843.3.579 .2.1285 1940 Unknown [id number] 2.16.840.1.477300.3.579 .2.1285 1940 Unknown [id number] 2.16.840.1.267972.3.579 .2.1285 1940 Unknown [id number] 2.16.840.1.340960.3.579 .2.1285 1940 Unknown [id number] 2.16.840.1.814086.3.579 .2.1285 1940 Unknown [id number] 2.16.840.1.034631.3.579 .2.1285 1940 Unknown [id number] 2.16.840.1.514149.3.579 .2.1285 1940 Unknown [id number] 2.16.840.1.522036.3.579 .2.1285 1940 Unknown [id number] 2.16.840.1.735964.3.579 .2.1285 1940 Unknown [id number] 2.16.840.1.210016.3.579 .2.1285 1940 Unknown [id number] [id number] .2.727 Social History Date Type Detail Facility Start: 04-21-2021 End: 12-14-2023 Tobacco smoking status Never smoked tobacco (finding) [facility] Tobacco smoking status Never [facility] Start: 12-14-2023 Sex Assigned At Female F [facility] Start: 12-14-2023 Tobacco use and exposure Smokeless tobacco non-user [facility] Start: 12-14-2023 Alcoholic beverage intake Lifetime non-drinker (finding) [facility] Start: 12-14-2023 History of Social function [facility] Has the [employer], [employer], or [employer] threatened to shut off services in your home in past 12Mo No [facility] How often to you hav e a drink containing alcohol? [facility] Start: 1940 Sex assigned at Not on file [facility] Goals Date Patient Goal Desired Activity /State Personal health goal Comment on above: Formatting of this n ote might be different from the original. Evaluation of progress towards goal: Patient and family agree to SNF for short term rehab at discharge. Functional Status Date Assessment Result Facility 04-02-2024 Functional Status N/A [facility] 04-02-2022 Functional Status N/A [facility] Clinical Notes 04-02-2022 to 07-25-2024 Discharge Planning Note - Tabatha Gamez - 12/20/2023 4:02 PM EDTDischarge Planning Note - Tabatha Gamez - 12/20/2023 4:02 PM EDTDischarge Planning Note - Tabatha Gamez - 12/20/2023 11:59 AM EDT Note Date & Type Note Facility 07-25-2024 Note [facility] Cardiology Clinic Note Chief Complaint: Patient here [...] to events. She was initially taken to [facility] and had a CTH which was [...] this was traumatic, she was transferred to [facility] for definitive care. On arrival she [...] Instructions Last Dose Given Next Dose Due dmskjqopbp-zedugqtvczmmc-siej 50-325-40 mg per tablet Commonly known as: [...] Your Medications These medications were sent to [id number] - [place], [place] [address] [facility] [address] [facility], [place] [address] levETIRAcetam 500 mg tablet You can get these medications from any pharmacy Bring a paper prescription for each of these medications dzwgjbstxc-tsdmihxecqhip-goag 50-325-40 mg per tablet Information about where [...] information: Hector Teran (more content not included)... [facility] 06-04-2024 Note [facility] Cardiology Clinic Note Chief Complaint: Patient here for 1 year follow up CAD, hypertension, and hyperlipidemia. She was admitted to [facility] in Nov 2023 for intracerebral hemorrhage [...] to events. She was initially taken to [facility] and had a CTH which was [...] this was traumatic, she was transferred to [facility] for definitive care. On arrival she [...] Instructions Last Dose Given Next Dose Due misuekizxw-tdqxvuudtmzbg-zhvm 50-325-40 mg per tablet Commonly known as: [...] Your Medications These medications were sent to [id number] - [place], [place] - [address] [place] [address] levETIRAcetam 500 mg tablet You can get these medications from any pharmacy Bring a paper prescription for each of these medications fcsodenmkj-qwzhftbhdtnqf-racj 50-325-40 mg per tablet Information about where to get these medications is not yet available Ask your nurse or doctor about these medications aspirin 81 mg sennosides-docusate sodium 8.6-50 (more content not included)... [facility] 04-02-2024 Hospital Discharge instructions Patient Education [...] include: ?8 oz (237 mL) of milk, fzrzyxg-crenidnfqzaj-upanf milk, and calcium-fortifiedfruit juice. Calcium-fortified means that [...] ?Spinach (cooked), rhubarb, beets, sweet potatoes, and [place] Citizen chard. ?Peanuts. ?Potato chips, costa rican fries, and baked potatoes with skin on. ?Nuts and nut products. ?Chocolate. If you regularly take a diuretic medicine, make sure to eat at least 1 or 2 servings of fruits or vegetables that are high in potassium each day. These include: ?Avocado. ?Banana. ?Bibb, prune, carrot, or tomato juice. ?Baked potato. [...] magnesium, fish oil, or vitamin B6. Take xgik-yhb-jpavqat and prescription medicines only as told by [...] Casseroles. Pizza. Lasagna. Frozen meals. Potato chips. Uzbek fries. The items listed above may not [...] provider. Document Revised: 07/15/2022 Document Reviewed: 07/15/2022 [employer] Patient Education 2023 [employer]. Follow Up Care 06/20/2023 13:56:41 With:SYBIL RODRIGUEZ, Ruiz Rangel, URL Address: [facility] [address], [place] [address]- When: Unknown [facility] 04-02-2024 Note Patient Education Nephrology Dietary Guidelines [...] ? 8 oz (237 mL) of milk, alzpyxp-ktkjvkfmuxuc-uladd milk, and calcium-fortifiedfruit juice. Calcium-fortified means that [...] Spinach (cooked), rhubarb, beets, sweet potatoes, and [place] Citizen chard. ? Peanuts. ? Potato chips, costa rican fries, and baked potatoes with skin on. ? Nuts and nut products. ? Chocolate. ??? If you regularly take a diuretic medicine, make sure to eat at least 1 or 2 servings of fruits or vegetables that are high in potassium each day. These include: ? Avocado. ? Banana. ? Bibb, prune, carrot, or tomato juice. ? Baked [...] fish oil, or vitamin B6. ??? Take dkrk-cuh-umpswgg and prescription medicines only as told by your health (more content not included)... [facility] 12-20-2023 Progress note Formatting of t his note might be different from the original. DISCHARGE PLANNING NOTE per JOSE ALFREDO Robertson at [facility] they are running behind and I am now being told 5:00pm-5:30pm. Epic chat sent to misael Contreras RN. [facility] 12-20-2023 Miscellaneous Notes DISCHARGE PLANNING NOTE per JOSE ALFREDO Robertson at [facility] they are running behind and I am now being told 5:00pm-5:30pm. Epic chat sent to Ben bedside RN. DISCHARGE PLANNING NOTE [facility] transport via PTN confirmed in [facility] to [facility] 9.3.24 at 4:00pm DISCHARGE PLANNING NOTE Updates to [facility] (P#: ; F#: ) Images from the original note were not included. DISCHARGE PLANNING NOTE Discussed patient today during rounds. Plan- [facility] accepting. Tasked [facility] to schedule w/c van for 3 pm. Floor nurse and PA aware. Spoke with patient, and dtr and they are in agreement with d/c today to [place]. Awaiting CRF. Services Requested: Services Requested Discharge Disposition: SNF SNF Name: [facility] SNF SNF Does the patient need discharge transportation arranged?: Yes Transportation Arranged: Ambulance Visiting Physician/Provider: Jennifer Kc MD Initial DC Assessment Completed: Yes Patient Goals: Patient/Caregiver Goals Patient/Caregiver Goals: Intermediate Care Skilled Nuring Care: Skilled Care (Short Term) Goals: Goals SNF (pt-stated) Evaluation of progress towards goal: Patient and family agree to SNF for short term rehab at discharge. - REBECCA PATEL 12/20/23 11:04 AM Tasked [facility] to send CRF to [facility]. - REBECCA PATEL 12/20/23 3:39 PM Physical Therapy Treatment Discharge Recommendations PT Recommendations: Intermediate Facility 6 Clicks: Basic Mobility Turning from [...] RN Equipment: gait belt, RW, chair alarm Telemetry/Director Talent: Yes Oxygen Used: room air Other: fall [...] resolved problems. Principal Problem: ICH (intracerebral hemorrhage) ([facility]) Associated attestation - Zeeshan Hein, PT - 12/20/2023 2:59 PM EDT I have reviewed and agree with this note and education documentation for this visit. Problem: Pain Goal: Patient goal is pain score less than 4, able to rest, and participant in treatment plan as appropriate Description: INTERVENTIONS: 1. Encourage patient or legal security representative to report early pain and ask [...] per policy 9. Teach patient or legal security representative interventions for comforting Outcome: Progressing Note: Evaluation of progress towards goal: pain controlled with prn meds Problem: Pain Goal: Patient goal is pain score less than 4, able to rest, and participant in treatment plan as appropriate Description: INTERVENTIONS: 1. Encourage patient or legal security representative to report early pain and ask [...] per policy 9. Teach patient or legal security representative interventions for comforting Outcome: Progressing Note: [...] at the bedside 7. Instruct patient/ patient security representative about use of safety devices 8. Include patient/ patient security representative in decisions related to safety Outcome: [...] hygiene technique 7. Identify and instruct patient/patient security representative in use of appropriate isolation precautions for identified infection/symptoms 8. Provide and discuss with patient/patient security representative on educational MDRO sheet 9. Encourage and monitor nutritional status daily and consult manager port if indicated 10. Implement neutropenic guidelines as needed 11. Review exposure to history of communicable disease and recent travel history on admission 12. Encourage annual influenza vaccine 13. Encourage pneumonia vaccine Outcome: Progressing Note: Evaluation of progress towards goal: Patient remains free from signs and symptoms of infections at current time, plan of care still ongoing. Problem: Knowledge Deficit Goal: Patient/patient security representative demonstrates understanding of disease process, treatment [...] is planned to be discharged to a fpc facility with appropriate resources. Problem: Moderate - High Risk Fall Score Description: Coleman Fall Score of =/> 25 or indicated by [facility] Assessment Goal: Patient should be free from fall Description: Interventions: 1. [place] to environment 2. Hourly rounds addressing the [...] non-skid footwear 11. Teach patient and patient security representative to maintain environment for safety and [...] (cane, walker) within reach 19. Request patient security representative bring adaptive equipment/mobility aids from home or obtain and provide as needed 20. Consult pharmacy regarding effects of med's affecting mobility, cognition, and alternatives 21. Obtain physician order for PT if risk factors associated with mobility are present 22. Obtain physician order for OT as appropriate 23. Utilize diversional activities 24. Educate patient and patient security representative how to maintain a safe environment during visitation times (notify nurse prior to leaving bedside) 25. Consider appropriateness of medical or non-emergency medical tech 26. Set up voiding schedule as appropriate [...] Description: INTERVENTIONS: 1. Encourage patient or legal security representative to report early pain and ask [...] per policy 9. Teach patient or legal security representative interventions for comforting Outcome: Progressing Note: Evaluation of progress towards goal: robertson controlled with prn meds Problem: Pain Goal: Patient goal is pain score less than 4, able to rest, and participant in treatment plan as appropriate Description: INTERVENTIONS: 1. Encourage patient or legal security representative to report early pain and ask [...] per policy 9. Teach patient or legal security representative interventions for comforting Outcome: Progressing Note: [...] at the bedside 7. Instruct patient/ patient security representative about use of safety devices 8. Include patient/ patient security representative in decisions related to safety Outcome: [...] hygiene technique 7. Identify and instruct patient/patient security representative in use of appropriate isolation precautions for identified infection/symptoms 8. Provide and discuss with patient/patient security representative on educational MDRO sheet 9. Encourage and monitor nutritional status daily and consult manager port if indicated 10. Implement neutropenic guidelines as needed 11. Review exposure to history of communicable disease and recent travel history on admission 12. Encourage annual influenza vaccine 13. Encourage pneumonia vaccine Outcome: Progressing Note: Evaluation of progress towards goal: Patient remains free from signs and symptoms of infections at current time, plan of care still ongoing. Problem: Knowledge Deficit Goal: Patient/patient security representative demonstrates understanding of disease process, treatment [...] is planned to be discharged to a fpc facility with appropriate resources. Problem: Moderate - High Risk Fall Score Description: Coleman Fall Score of =/> 25 or indicated by [facility] Assessment Goal: Patient should be free from fall Description: Interventions: 1. [place] to environment 2. Hourly rounds addressing the [...] non-skid footwear 11. Teach patient and patient security representative to maintain environment for safety and [...] (cane, walker) within reach 19. Request patient security representative bring adaptive equipment/mobility aids from home or obtain and provide as needed 20. Consult pharmacy regarding effects of med's affecting mobility, cognition, and alternatives 21. Obtain physician order for PT if risk factors associated with mobility are present 22. Obtain physician order for OT as appropriate 23. Utilize diversional activities 24. Educate patient and patient security representative how to maintain a safe environment during visitation times (notify nurse prior to leaving bedside) 25. Consider appropriateness of medical or non-emergency medical tech 26. Set up voiding schedule as appropriate [...] Description: INTERVENTIONS: 1. Encourage patient or legal security representative to report early pain and ask [...] per policy 9. Teach patient or legal security representative interventions for comforting Outcome: Progressing Note: Evaluation of progress towards goal: no pain reported Problem: Pain Goal: Patient goal is pain score less than 4, able to rest, and participant in treatment plan as appropriate Description: INTERVENTIONS: 1. Encourage patient or legal security representative to report early pain and ask [...] per policy 9. Teach patient or legal security representative interventions for comforting Note: Evaluation of [...] at the bedside 7. Instruct patient/ patient security representative about use of safety devices 8. Include patient/ patient security representative in decisions related to safety Note: Evaluation of progress towards goal: fall risk education, safety checks Problem: Knowledge Deficit Goal: Patient/patient security representative demonstrates understanding of disease process, treatment [...] Description: INTERVENTIONS: 1. Encourage patient or legal security representative to report early pain and ask [...] per policy 9. Teach patient or legal security representative interventions for comforting Outcome: Progressing Note: [...] at the bedside 7. Instruct patient/ patient security representative about use of safety devices 8. Include patient/ patient security representative in decisions related to safety Outcome: [...] hygiene technique 7. Identify and instruct patient/patient security representative in use of appropriate isolation precautions for identified infection/symptoms 8. Provide and discuss with patient/patient security representative on educational MDRO sheet 9. Encourage and monitor nutritional status daily and consult manager port if indicated 10. Implement neutropenic guidelines as [...] to monitor. Problem: Knowledge Deficit Goal: Patient/patient security representative demonstrates understanding of disease process, treatment [...] SNF at discharge, referral sent to [facility], awaiting precert. Family updated. PIT CLERK following, transport will be setup once authorization received. Problem: Moderate - High Risk Fall Score Description: Coleman Fall Score of =/> 25 or indicated by [facility] Assessment Goal: Patient should be free from fall Description: Interventions: 1. [place] to environment 2. Hourly rounds addressing the [...] non-skid footwear 11. Teach patient and patient security representative to maintain environment for safety and [...] (cane, walker) within reach 19. Request patient security representative bring adaptive equipment/mobility aids from home or obtain and provide as needed 20. Consult pharmacy regarding effects of med's affecting mobility, cognition, and alternatives 21. Obtain physician order for PT if risk factors associated with mobility are present 22. Obtain physician order for OT as appropriate 23. Utilize diversional activities 24. Educate patient and patient security representative how to maintain a safe environment during visitation times (notify nurse prior to leaving bedside) 25. Consider appropriateness of medical or non-emergency medical tech 26. Set up voiding schedule as appropriate [...] supplement as ordered 13. Collaborate with clinical manager port 14. Include patient/ patient's security representative in decisions related to nutrition Outcome: [...] Description: INTERVENTIONS: 1. Encourage patient or legal security representative to report early pain and ask [...] per policy 9. Teach patient or legal security representative interventions for comforting Outcome: Progressing Note: [...] at the bedside 7. Instruct patient/ patient security representative about use of safety devices 8. Include patient/ patient security representative in decisions related to safety Outcome: [...] hygiene technique 7. Identify and instruct patient/patient security representative in use of appropriate isolation precautions for identified infection/symptoms 8. Provide and discuss with patient/patient security representative on educational MDRO sheet 9. Encourage and monitor nutritional status daily and consult manager port if indicated 10. Implement neutropenic guidelines as needed 11. Review exposure to history of communicable disease and recent travel history on admission 12. Encourage annual influenza vaccine 13. Encourage pneumonia vaccine Outcome: Progressing Note: Evaluation of progress towards goal: Problem: Moderate - High Risk Fall Score Description: Coleman Fall Score of =/> 25 or indicated by [facility] Assessment Goal: Patient should be free from fall Description: Interventions: 1. [place] to environment 2. Hourly rounds addressing the [...] non-skid footwear 11. Teach patient and patient security representative to maintain environment for safety and [...] (cane, walker) within reach 19. Request patient security representative bring adaptive equipment/mobility aids from home or obtain and provide as needed 20. Consult pharmacy regarding effects of med's affecting mobility, cognition, and alternatives 21. Obtain physician order for PT if risk factors associated with mobility are present 22. Obtain physician order for OT as appropriate 23. Utilize diversional activities 24. Educate patient and patient security representative how to maintain a safe environment during visitation times (notify nurse prior to leaving bedside) 25. Consider appropriateness of medical or non-emergency medical tech 26. Set up voiding schedule as appropriate (every 2 hours) Outcome: Progressing Note: Evaluation of progress towards goal: fall risk education Problem: Pain Goal: Patient goal is pain score less than 4, able to rest, and participant in treatment plan as appropriate Description: INTERVENTIONS: 1. Encourage patient or legal security representative to report early pain and ask [...] per policy 9. Teach patient or legal security representative interventions for comforting Outcome: Progressing Note: [...] at the bedside 7. Instruct patient/ patient security representative about use of safety devices 8. Include patient/ patient security representative in decisions related to safety Outcome: [...] hygiene technique 7. Identify and instruct patient/patient security representative in use of appropriate isolation precautions for identified infection/symptoms 8. Provide and discuss with patient/patient security representative on educational MDRO sheet 9. Encourage and monitor nutritional status daily and consult manager port if indicated 10. Implement neutropenic guidelines as needed 11. Review exposure to history of communicable disease and recent travel history on admission 12. Encourage annual influenza vaccine 13. Encourage pneumonia vaccine Outcome: Progressing Note: Evaluation of progress towards goal: Problem: Knowledge Deficit Goal: Patient/patient security representative demonstrates understanding of disease process, treatment [...] of =/> 25 or indicated by [facility] Assessment Goal: Patient should be free from fall Description: Interventions: 1. [place] to environment 2. Hourly rounds addressing the [...] non-skid footwear 11. Teach patient and patient security representative to maintain environment for safety and [...] (cane, walker) within reach 19. Request patient security representative bring adaptive equipment/mobility aids from home or obtain and provide as needed 20. Consult pharmacy regarding effects of med's affecting mobility, cognition, and alternatives 21. Obtain physician order for PT if risk factors associated with mobility are present 22. Obtain physician order for OT as appropriate 23. Utilize diversional activities 24. Educate patient and patient security representative how to maintain a safe environment during visitation times (notify nurse prior to leaving bedside) 25. Consider appropriateness of medical or non-emergency medical tech 26. Set up voiding schedule as appropriate [...] supplement as ordered 13. Collaborate with clinical manager port 14. Include patient/ patient's security representative in decisions related to nutrition Outcome: [...] goal: DISCHARGE PLANNING NOTE Referral to [facility] (P# ; F# ) , [facility] (P#: ; F#: ) , [facility] (P# [phone]; F# [phone]) Images from the original note were not included. DISCHARGE PLANNING NOTE Services Requested: Services Requested Discharge Disposition: SNF Does the patient need discharge transportation arranged?: Yes Transportation Arranged: Ambulance Visiting Physician/Provider: Jennifer Kc MD Initial DC Assessment Completed: Yes Patient Goals: Patient/Caregiver Goals Patient/Caregiver Goals: Intermediate Care Skilled Nuring Care: Skilled Care (Short [...] gas and electric. Patient's preferred pharmacy is [facility] in [facility]. Per patient self report: Drug use: deny [...] and provided CN with 3 choices: [facility] in [place], [facility], and [facility] in [place]. [facility] tasked to send referral to the three SNF choices. Patient has traditional medicare and will need a 3 midnight stay, no precert needed . 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 - Nandini Brown RN 12/16/23 3:43 PM Occupational Therapy Evaluation Discharge Recommendations OT Recommendations : Intermediate Facility SNF/ECF Comments: patient would benefit from [...] Initial CT head: negative. Patient went to [place] and was kept for observation and was discharged home the next day. Family noted slurred speech and patient went back to hospital and was found to have SAH. Transfer to [facility]. CT head; small SAH in right [...] gait belt, IV and 2 liters oxygen. Telemetry/Director Talent: Yes Oxygen Used: 2 liters oxygen. Other: [...] Patient will perform dressing LB with Modified [place] Dates: Start: 12/16/23 Expected End: 01/15/24 Description: Goal Description: Disciplines: OT Problem: Dressing UB Dates: Start: 12/16/23 Disciplines: OT Goal: Patient will perform dressing UB with Modified [place] Dates: Start: 12/16/23 Expected End: 01/15/24 Description: Goal Description: Disciplines: OT Problem: Functional Mobility Dates: Start: 12/16/23 Disciplines: OT Goal: Patient will perform functional mobility with Modified [place] Dates: Start: 12/16/23 Expected End: 01/15/24 Description: [...] Patient will perform toilet transfers with Modified [place] Dates: Start: 12/16/23 Expected End: 01/15/24 Description: [...] resolved problems. Principal Problem: ICH (intracerebral hemorrhage) ([facility]) Physical Therapy Evaluation Discharge Recommendations PT Recommendations: Intermediate Facility SNF/ECF Comments: due to decline in [...] and recent COVID infection. Pt admit from [facility]. Pt was seen at hospital on 12/10 s/p fall at home, pt amnestic to events but found her. Initial CT head (-) and pt kept for observation overnight and discharged to home next day. Family noted slurred speech and returned to hospital where concern for SAH was noted on imaging and pt transferred to [facility]. 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 Dtr reports recently decline in balance and mobility Prior Function Lives With: Spouse (Gene who is in good health) Receives Help From: Family (local dtr Jean and son Lazaro in [place]) Level of Mobility: Independent with ADLs and [...] resolved problems. Principal Problem: ICH (intracerebral hemorrhage) ([facility]) Problem: Pain Goal: Patient goal is pain score less than 4, able to rest, and participant in treatment plan as appropriate Description: INTERVENTIONS: 1. Encourage patient or legal security representative to report early pain and ask [...] per policy 9. Teach patient or legal security representative interventions for comforting Outcome: Progressing Note: [...] at the bedside 7. Instruct patient/ patient security representative about use of safety devices 8. Include patient/ patient security representative in decisions related to safety Outcome: [...] hygiene technique 7. Identify and instruct patient/patient security representative in use of appropriate isolation precautions for identified infection/symptoms 8. Provide and discuss with patient/patient security representative on educational MDRO sheet 9. Encourage and monitor nutritional status daily and consult manager port if indicated 10. Implement neutropenic guidelines as [...] call with any further needs. Jodie KRAFT [facility] Contact via patient touch 12/15/23 1:08 PM SWAPNIL Herrera 12/15/23 7068 Problem: Pain Goal: Patient goal is pain score less than 4, able to rest, and participant in treatment plan as appropriate Description: INTERVENTIONS: 1. Encourage patient or legal security representative to report early pain and ask [...] per policy 9. Teach patient or legal security representative interventions for comforting Outcome: Progressing Note: Evaluation of progress towards goal: pain controlled with prn meds Problem: Pain Goal: Patient goal is pain score less than 4, able to rest, and participant in treatment plan as appropriate Description: INTERVENTIONS: 1. Encourage patient or legal security representative to report early pain and ask [...] per policy 9. Teach patient or legal security representative interventions for comforting Outcome: Progressing Note: [...] at the bedside 7. Instruct patient/ patient security representative about use of safety devices 8. Include patient/ patient security representative in decisions related to safety Outcome: [...] hygiene technique 7. Identify and instruct patient/patient security representative in use of appropriate isolation precautions for identified infection/symptoms 8. Provide and discuss with patient/patient security representative on educational MDRO sheet 9. Encourage and monitor nutritional status daily and consult manager port if indicated 10. Implement neutropenic guidelines as needed 11. Review exposure to history of communicable disease and recent travel history on admission 12. Encourage annual influenza vaccine 13. Encourage pneumonia vaccine Outcome: Progressing Note: Evaluation of progress towards goal: Patient afebrile at this time and vital signs stable. No signs or symptoms of infection. Problem: Knowledge Deficit Goal: Patient/patient security representative demonstrates understanding of disease process, treatment [...] of =/> 25 or indicated by [facility] Assessment Goal: Patient should be free from fall Description: Interventions: 1. [place] to environment 2. Hourly rounds addressing the [...] non-skid footwear 11. Teach patient and patient security representative to maintain environment for safety and [...] (cane, walker) within reach 19. Request patient security representative bring adaptive equipment/mobility aids from home or obtain and provide as needed 20. Consult pharmacy regarding effects of med's affecting mobility, cognition, and alternatives 21. Obtain physician order for PT if risk factors associated with mobility are present 22. Obtain physician order for OT as appropriate 23. Utilize diversional activities 24. Educate patient and patient security representative how to maintain a safe environment during visitation times (notify nurse prior to leaving bedside) 25. Consider appropriateness of medical or non-emergency medical tech 26. Set up voiding schedule as appropriate [...] supplement as ordered 13. Collaborate with clinical manager port 14. Include patient/ patient's security representative in decisions related to nutrition Outcome: [...] Description: INTERVENTIONS: 1. Encourage patient or legal security representative to report early pain and ask [...] per policy 9. Teach patient or legal security representative interventions for comforting Outcome: Progressing Note: [...] at the bedside 7. Instruct patient/ patient security representative about use of safety devices 8. Include patient/ patient security representative in decisions related to safety Outcome: [...] hygiene technique 7. Identify and instruct patient/patient security representative in use of appropriate isolation precautions for identified infection/symptoms 8. Provide and discuss with patient/patient security representative on educational MDRO sheet 9. Encourage and monitor nutritional status daily and consult manager port if indicated 10. Implement neutropenic guidelines as [...] abnormal labs. Problem: Knowledge Deficit Goal: Patient/patient security representative demonstrates understanding of disease process, treatment [...] be free from fall Description: Interventions: 1. [place] to environment 2. Hourly rounds addressing the [...] non-skid footwear 11. Teach patient and patient security representative to maintain environment for safety and [...] (cane, walker) within reach 19. Request patient security representative bring adaptive equipment/mobility aids from home or obtain and provide as needed 20. Consult pharmacy regarding effects of med's affecting mobility, cognition, and alternatives 21. Obtain physician order for PT if risk factors associated with mobility are present 22. Obtain physician order for OT as appropriate 23. Utilize diversional activities 24. Educate patient and patient security representative how to maintain a safe environment during visitation times (notify nurse prior to leaving bedside) 25. Consider appropriateness of medical or non-emergency medical tech 26. Set up voiding schedule as appropriate [...] supplement as ordered 13. Collaborate with clinical manager port 14. Include patient/ patient's security representative in decisions related to nutrition Outcome: [...] Description: INTERVENTIONS: 1. Encourage patient or legal security representative to report early pain and ask [...] per policy 9. Teach patient or legal security representative interventions for comforting Outcome: Progressing Note: [...] at the bedside 7. Instruct patient/ patient security representative about use of safety devices 8. Include patient/ patient security representative in decisions related to safety Outcome: [...] hygiene technique 7. Identify and instruct patient/patient security representative in use of appropriate isolation precautions for identified infection/symptoms 8. Provide and discuss with patient/patient security representative on educational MDRO sheet 9. Encourage and monitor nutritional status daily and consult manager port if indicated 10. Implement neutropenic guidelines as needed 11. Review exposure to history of communicable disease and recent travel history on admission 12. Encourage annual influenza vaccine 13. Encourage pneumonia vaccine Outcome: Progressing Note: Evaluation of progress towards goal: daily CBC monitored Problem: Knowledge Deficit Goal: Patient/patient security representative demonstrates understanding of disease process, treatment [...] of =/> 25 or indicated by [facility] Assessment Goal: Patient should be free from fall Description: Interventions: 1. [place] to environment 2. Hourly rounds addressing the [...] non-skid footwear 11. Teach patient and patient security representative to maintain environment for safety and [...] (cane, walker) within reach 19. Request patient security representative bring adaptive equipment/mobility aids from home or obtain and provide as needed 20. Consult pharmacy regarding effects of med's affecting mobility, cognition, and alternatives 21. Obtain physician order for PT if risk factors associated with mobility are present 22. Obtain physician order for OT as appropriate 23. Utilize diversional activities 24. Educate patient and patient security representative how to maintain a safe environment during visitation times (notify nurse prior to leaving bedside) 25. Consider appropriateness of medical or non-emergency medical tech 26. Set up voiding schedule as appropriate [...] continue to follow along. Prognosis Services: Skilled BED LASTER services to address the above deficits Prognosis/Potential: [...] Problem: Auditory Comprehension Dates: Start: 12/14/23 Disciplines: BED LASTER Goal: LTG: Patient will comprehend communication related to basic medical and social needs and utilize compensatory strategies to maintain safety in a functional living environment Dates: Start: 12/14/23 Expected End: 01/14/24 Disciplines: BED LASTER Goal: STG: Patient will complete complex, paragraph level auditory comprehension tasks with 90% accuracy with minimal cueing Dates: Start: 12/14/23 Expected End: 01/14/24 Disciplines: BED LASTER Problem: Cognitive Linguistic Dates: Start: 12/14/23 Disciplines: BED LASTER Goal: LTG: Patient will display functional cognitive-linguistic skills to demonstrate appropriate communication and safety within daily activities in a functional living environment Dates: Start: 12/14/23 Expected End: 01/14/24 Disciplines: BED LASTER Goal: STG: Patient will describe/demonstrate/initiate use of 3 memory strategies with minimal cueing Dates: Start: 12/14/23 Expected End: 01/14/24 Disciplines: BED LASTER Problem: High Level Language Dates: Start: 12/14/23 Disciplines: BED LASTER Goal: LTG: Patient will demonstrate use of self-awareness, goal setting, planning, initiation, self-monitoring and problem solving during daily activities to improve safety and awareness in a functional living environment Dates: Start: 12/14/23 Expected End: 01/14/24 Disciplines: BED LASTER Goal: STG: Patient will complete simple to complex organization, scheduling, planning and reasoning tasks to improve problem solving and safety awareness with 90% accuracy with minimal cueing Dates: Start: 12/14/23 Expected End: 01/14/24 Disciplines: BED LASTER Problem: Speech Production Dates: Start: 12/14/23 Disciplines: BED LASTER Goal: LTG: Patient will develop functional and intelligible speech and utilize compensatory strategies through the use of adequate labial and lingual function, increased articulatory precision and speech prosody Dates: Start: 12/14/23 Expected End: 01/14/24 Disciplines: BED LASTER Goal: STG: Patient will use appropriate articulatory accuracy and speech rate when reading/speaking with 90% accuracy with minimal cueing Dates: Start: 12/14/23 Expected End: 01/14/24 Disciplines: BED LASTER Goal: STG: Patient will complete rapid alternating verbal sequences (tongue twisters) with improved articulatory precision with 90% accuracy with minimal cueing Dates: Start: 12/14/23 Expected End: 01/14/24 Disciplines: BED LASTER Problem: Verbal Expression Dates: Start: 12/14/23 Disciplines: BED LASTER Goal: LTG: Patient will utilize compensatory strategies to communicate wants and needs effectively to different conversational partners, maintain safety and participate socially in a functional living environment Dates: Start: 12/14/23 Expected End: 01/14/24 Disciplines: BED LASTER Goal: STG: Patient will complete simple to complex divergent and convergent naming tasks with 90% accuracy with minimal cueing to improve thought organization Dates: Start: 12/14/23 Expected End: 01/14/24 Disciplines: BED LASTER Speech Therapy Care Plan (Resolved) There are no resolved problems. Principal Problem: ICH (intracerebral hemorrhage) ([facility]) Physical Therapy (P) CANCEL - Deferred (Awaiting NS consult regarding new ICH bleed) Will check back as appropriate. Occupational Therapy CANCEL - Deferred (patient has ICH and awaiting neurosurgery consult) documented in this encounter [facility] 12-20-2023 Hospital course Narrative [facility] TRAUMA SURGERY-DISCHARGE SUMMARY DISCHARGE NOTE / SUMMARY Patient ID: Kelin Rosenberg : 1940 Acct: [id number] Patient's PCP: NO PCP, NO PCP Admit Date: 12/14/2023 Discharge Date: 12/20/2023 Admitting Physician: Kyle Horton MD Consults: Neurosurgery (NSx) and Cardiology Discharge Diagnoses/Chief Complaint: Syncopal fall Primary Problem ICH (intracerebral hemorrhage) ([facility]) Patient Active Problem List Diagnosis Date Noted ICH (intracerebral hemorrhage) ([facility]) 12/14/2023 No past medical history on file. HOSPITAL COURSE SUMMARY: Kelin Rosenberg is an 83 y.o. White or female states on Tuesday her reports that she fell in the living room. She is amnestic to events. She was initially taken to [facility] and had a CTH which was read as negative and she was admitted for observation status overnight and sent home the following morning. Family later noticed she had slurred speech and she was taken back to the hospital and found that she did have a subarachnoid on original imaging. They spoke with [facility] Stroke - felt this was traumatic, she was transferred to [facility] for definitive care. On arrival she [...] Instructions Last Dose Given Next Dose Due vbgwfvjahj-dcxrjzdstcprx-vmou 50-325-40 mg per tablet Commonly known as: [...] Your Medications These medications were sent to [id number] - [place], [place] - [address] [place] [address] levETIRAcetam 500 mg tablet You can get these medications from any pharmacy Bring a paper prescription for each of these medications rjnyvazuhd-tvufsanqujjbb-cvjm 50-325-40 mg per tablet Information about where to get these medications is not yet available Ask your nurse or doctor about these medications aspirin 81 mg sennosides-docusate sodium 8.6-50 mg Additional Discharge Instructions: none Scheduled Outpatient Follow Up: No future appointments. Follow-up Information Jimmie Burkett MD Follow up. JENNIFER KC MD Follow up. Specialty: Family Medicine Contact information: [facility] [id number] NO PCP, NO PCP . Specialty: Family Medicine Contact information: [facility] [id number] Time spent: >30min VIKI GORDON 12/20/23 1:44 PM VIKI Gordon 12/20/23 1348 documented in this encounter [facility] 12-20-2023 Progress note Formatting of t his note might be different from the original. DISCHARGE PLANNING NOTE [facility] transport via PTN confirmed in [facility] to [facility] 9.3.24 at 4:00pm [facility] 12-20-2023 Progress note Formatting of t his note might be different from the original. DISCHARGE PLANNING NOTE Updates to [facility] (P#: ; F#: ) [facility] 12-20-2023 Progress note Formatting of t his note is different from the original. Images from the original note were not included. DISCHARGE PLANNING NOTE Discussed patient today during rounds. Plan- [facility] accepting. Tasked [facility] to schedule w/c van for 3 pm. Floor nurse and PA aware. Spoke with patient, and dtr and they are in agreement with d/c today to [place]. Awaiting CRF. Services Requested: Services Requested Discharge Disposition: [facility] SNF Name: [facility] SNF Does the patient need discharge transportation arranged?: Yes Transportation Arranged: Ambulance Visiting Physician/Provider: Jennifer Kc MD Initial DC Assessment Completed: Yes Patient Goals: Patient/Caregiver Goals Patient/Caregiver Goals: Intermediate Care Skilled [place] Care: Skilled Care (Short Term) Goals: Goals SNF (pt-stated) Evaluation of progress towards goal: Patient and family agree to SNF for short term rehab at discharge. - REBECCA PATEL 12/20/23 11:04 AM Tasked [facility] to send CRF to [facility]. - REBECCA PATEL 12/20/23 3:39 PM [employer] [facility] 12-20-2023 Progress note Formatting of t his note is different from the original. Physical Therapy Treatment Discharge Recommendations PT Recommendations: Intermediate Facility 6 Clicks: Basic Mobility Turning from [...] RN Equipment: gait belt, RW, chair alarm Telemetry/Director Talent: Yes Oxygen Used: room air Other: fall [...] Outcomes Date/Time User Outcome 12/20/23 08Shahnaz Andrews, HARP REGULATOR Progressing Problem: Bed Mobility Dates: Start: 12/16/23 Disciplines: PT Goal: Patient will perform bed mobility with Supervision Dates: Start: 12/16/23 Expected End: 01/10/24 Description: Goal Description: Disciplines: PT Outcomes Date/Time User Outcome 12/20/23 08Shahnaz Andrews, HARP REGULATOR Progressing Problem: Gait Dates: Start: 12/16/23 Disciplines: PT Goal: Patient will perform gait with Stand By Assist Dates: Start: 12/16/23 Expected End: 01/10/24 Description: 150 feet with RW support for safe mobility in home Goal Description: Disciplines: PT Outcomes Date/Time User Outcome 12/20/23 08Shahnaz Andrews, HARP REGULATOR Progressing Problem: Standing Balance Dates: Start: 12/16/23 Disciplines: PT Goal: Improve balance to good Dates: Start: 12/16/23 Expected End: 01/10/24 Description: Static Dynamic with UE support as needed for safe mobility, decreased fall risk Disciplines: PT Outcomes Date/Time User Outcome 12/20/23 0821 Dory Andrews, HARP REGULATOR Progressing Problem: Transfers Dates: Start: 12/16/23 Disciplines: PT Goal: Patient will perform transfers with Supervision Dates: Start: 12/16/23 Expected End: 01/10/24 Description: Goal Description: with RW support Disciplines: PT Outcomes Date/Time User Outcome 12/20/23 0821 Dory Andrews, HARP REGULATOR Progressing Physical Therapy Care Plan (Resolved) There are no resolved problems. Principal Problem: ICH (intracerebral hemorrhage) ([facility]) Associated attestation - Zeeshan Hein PT - 12/20/2023 2:59 PM EDT I have reviewed and agree with this note and education documentation for this visit. [facility] 12-20-2023 Plan of care note Problem: Pain Goal: Patient goal is pain score less than 4, able to rest, and participant in treatment plan as appropriate Description: INTERVENTIONS: 1. Encourage patient or legal security representative to report early pain and ask [...] per policy 9. Teach patient or legal security representative interventions for comforting Outcome: Progressing Note: Evaluation of progress towards goal: pain controlled with prn meds [facility] 12-19-2023 Plan of care note Problem: Pain Goal: Patient goal is pain score less than 4, able to rest, and participant in treatment plan as appropriate Description: INTERVENTIONS: 1. Encourage patient or legal security representative to report early pain and ask [...] per policy 9. Teach patient or legal security representative interventions for comforting Outcome: Progressing Note: [...] at the bedside 7. Instruct patient/ patient security representative about use of safety devices 8. Include patient/ patient security representative in decisions related to safety Outcome: [...] hygiene technique 7. Identify and instruct patient/patient security representative in use of appropriate isolation precautions for identified infection/symptoms 8. Provide and discuss with patient/patient security representative on educational MDRO sheet 9. Encourage and monitor nutritional status daily and consult manager port if indicated 10. Implement neutropenic guidelines as needed 11. Review exposure to history of communicable disease and recent travel history on admission 12. Encourage annual influenza vaccine 13. Encourage pneumonia vaccine Outcome: Progressing Note: Evaluation of progress towards goal: Patient remains free from signs and symptoms of infections at current time, plan of care still ongoing. Problem: Knowledge Deficit Goal: Patient/patient security representative demonstrates understanding of disease process, treatment [...] is planned to be discharged to a fpc facility with appropriate resources. Problem: Moderate - High Risk Fall Score Description: Coleman Fall Score of =/> 25 or indicated by [facility] Assessment Goal: Patient should be free from fall Description: Interventions: 1. [place] to environment 2. Hourly rounds addressing the [...] non-skid footwear 11. Teach patient and patient security representative to maintain environment for safety and [...] (cane, walker) within reach 19. Request patient security representative bring adaptive equipment/mobility aids from home or obtain and provide as needed 20. Consult pharmacy regarding effects of med's affecting mobility, cognition, and alternatives 21. Obtain physician order for PT if risk factors associated with mobility are present 22. Obtain physician order for OT as appropriate 23. Utilize diversional activities 24. Educate patient and patient security representative how to maintain a safe environment during visitation times (notify nurse prior to leaving bedside) 25. Consider appropriateness of medical or non-emergency medical tech 26. Set up voiding schedule as appropriate [...] Qshift skin assessments and proper hygiene care. [facility] 12-19-2023 Consult note Associated Order (s): IP [...] found subarachnoid on original imaging; transferred to [facility]. Biochemical Data, Medical Tests, and Procedures: [...] found for: VERYLOWLIP No results found for: [id number] No results found for: FOLATE No results [...] VIKI Manuel 10 mg at 12/18/23 2156 jgxmvjgxff-idnfaimawicls-aeco (FIORICET, ESGIC) 50-325-40 mg per tablet 2 tablet 2 tablet oral Q6H PRN Bob Levin APRN-SENIOR PRODUCT ENGINEER 2 tablet at 12/19/23 0325 calcium carbonate [...] mg 4 mg intravenous Q6H PRN KIRBY NorrisSENIOR PRODUCT ENGINEER 4 mg at 12/16/23 1203 oxyCODONE (ROXICODONE) immediate release tablet 5 mg 5 mg oral Q4H PRN VIKI Ramos 5 mg at 12/18/23 1600 Or oxyCODONE (ROXICODONE) immediate release tablet 10 mg 10 mg oral Q4H PRN VIKI Ramos 10 mg at 12/16/23 1604 sennosides-docusate sodium (SENOKOT-S) 8.6-50 mg 2 tablet 2 tablet oral Nightly Chio Ayoub APRN-SENIOR PRODUCT ENGINEER 2 tablet at 12/18/23 2156 sodium chloride 0.9 % flush 3 mL 3 mL intravenous PRN Chio N Mega, FOOD PRODUCTION ASSOCIATE-SENIOR PRODUCT ENGINEER sodium chloride 0.9 % flush 3 mL 3 mL intravenous Q12H NAZ Chio Nii Ayoub, FOOD PRODUCTION ASSOCIATE-SENIOR PRODUCT ENGINEER 3 mL at 12/19/23 0756 sodium chloride [...] Admit Weight: 65.9 kg (Bed Scale, 12/13) [place] Body Weight: 52.3 kg Percent [place] Body Weight: >100% Weight Changes: insignificant changes per EMR Body Mass Index: Body mass index is 25.54 kg/m . BMI Category: Overweight (> or = 25.00) Comparative Standards: Estimated Energy Needs: 4454-5630 kcals daily. Method and weight used: 25-30 kcal/kg IBW 52.3 kg Estimated Protein Needs: 63-105 grams daily. Method and weight used: 1.2-2g protein/kg IBW Estimated Fluid Needs: 4000-1751 ml daily. Method weight used: 1 ml/kcal/day [...] Quinn, RD, LD Clinical Dietitian Direct Line: [facility] 12-19-2023 Consult note Associated Order (s): [...] found subarachnoid on original imaging; transferred to [facility]. Biochemical Data, Medical Tests, and Procedures: [...] found for: VERYLOWLIP No results found for: [id number] No results found for: FOLATE No results [...] VIKI Manuel 10 mg at 12/18/23 2156 mytplhndkq-dgzgbvwijgaru-rule (FIORICET, ESGIC) 50-325-40 mg per tablet 2 [...] Admit Weight: 65.9 kg (Bed Scale, 12/13) [place] Body Weight: 52.3 kg Percent [place] Body Weight: >100% Weight Changes: insignificant changes per EMR Body Mass Index: Body mass index is 25.54 kg/m . BMI Category: Overweight (> or = 25.00) Comparative Standards: Estimated Energy Needs: 8413-2459 kcals daily. Method and weight used: 25-30 kcal/kg IBW 52.3 kg Estimated Protein Needs: 63-105 grams daily. Method and weight used: 1.2-2g protein/kg IBW Estimated Fluid Needs: 4945-8675 ml daily. Method weight used: 1 ml/kcal/day [...] from the original note were not included. [facility] [address] [place] [address] HISTORY & PHYSICAL / CONSULT NOTE Kelin [...] called EMS. She was admitted initially to [place], where imaging revealed subarachnoid hemorrhage, otherwise hemodynamically stable, sinus rhythm. She got a loop recorder implanted there and was transferred to [facility] neuro ICU. Cardiology was consulted for [...] on file. Allergies: Allergies Allergen Reactions Penicillins [facility] Meds: Current Facility-Administered Medications Medication Dose Route Frequency Provider Last Rate Last Admin acetaminophen (TYLENOL EXTRA STRENGTH) tablet 1,000 mg 1,000 mg oral Q6H PRN Chio Ayobu APRN-SENIOR PRODUCT ENGINEER 1,000 mg at 12/14/23 1321 atorvastatin (LIPITOR) [...] (5 mg/mL premix) 500 mg intravenous Q12H [facility] SWAPNIL Norris Or levETIRAcetam (KEPPRA) tablet 500 mg 500 mg oral Q12H [facility] SWAPNIL Norris metoprolol succinate XL (TOPROL XL) [...] flush 3 mL 3 mL intravenous Q12H [facility] Chio Ayoub, FOOD PRODUCTION ASSOCIATE-SENIOR PRODUCT ENGINEER 3 mL at 12/14/23 1119 sodium chloride [...] test was unremarkable in 05/2023, following with [facility] cardiology No prior TTE on file Interventricular conduction delay on EKG PLAN - follow-up transthoracic echo - continuous telemetry, noted that was placed at [facility] following initial event - follow up troponin - cardiology will continue to follow Johnson Degroot MD This note was completed using a voice patient ambassador system. Every effort was made to ensure accuracy. However, inadvertent computerized patient ambassador errors may be present. Associated attestation - [...] she can follow up with her general chute worker at [facility]. In the meantime we will [...] from the original note were not included. [facility] [address] [place] [address], [address] [place] [address] * NEUROSURGERY CONSULT NOTE DATE:12/14/2023 PATIENT'S NAME: [...] for further assistance. Patient was taken to [facility] where initially CT of the brain was read negative. Patient was admitted for observation overnight and was sent home the next morning. Family later noticed she had slurred speech and subarachnoid hemorrhage was found on imaging studies. Patient was transferred to [facility] as a trauma consult and Neurosurgery [...] 1,000 mg, oral, Q6H PRN, Chio Ayoub, FOOD PRODUCTION ASSOCIATE-SENIOR PRODUCT ENGINEER, 1,000 mg at 12/14/23 0631 dextrose (GLUTOSE) [...] 10 mg, intravenous, Q6H PRN, Chio Ayoub APRN-SENIOR PRODUCT ENGINEER, 10 mg at 12/14/23 0631 insulin lispro (HumaLOG) injection 2-10 Units, 2-10 Units, subcutaneous, TID with meals, VIKI Manuel insulin lispro (HumaLOG) injection 2-8 Units, 2-8 Units, subcutaneous, Nightly, VIKI Manuel labetaloL (NORMODYNE,TRANDATE) injection 10 mg, 10 mg, intravenous, Q4H PRN, Chio Ayoub FOOD PRODUCTION ASSOCIATE-JAMESON levETIRAcetam (KEPPRA) IVPB 500 mg/100 mL in iso-osmotic sodium chloride (5 mg/mL premix), 500 mg, intravenous, Q12H NAZ OR levETIRAcetam (KEPPRA) tablet 500 mg, 500 mg, oral, Q12H NAZ, Chio Ayoub APRN-JAMESON ondansetron (PF) (ZOFRAN) injection 4 mg, 4 mg, intravenous, Q6H PRN, Chio Ayoub APRN-SENIOR PRODUCT ENGINEER, 4 mg at 12/14/23 0832 sennosides-docusate sodium (SENOKOT-S) 8.6-50 mg 2 tablet, 2 tablet, oral, Nightly, Chio Ayoub FOOD PRODUCTION ASSOCIATE-SENIOR PRODUCT ENGINEER sodium chloride 0.9 % flush 3 mL, 3 mL, intravenous, PRN, Chio Ayoub APRN-JAMESON sodium chloride 0.9 % flush 3 mL, [...] to person, place and time. Speech clear. [place] The patient exhibits unlabored breathing and normal [...] - Further management per Trauma Jodie Sosa APRN-SENIOR PRODUCT ENGINEER [facility] Contact via patient touch 12/14/23 11:12 AM Jodie Sosa APRN-JAMESON 12/14/23 1112 documented in this encounter [employer] 12-19-2023 History of Present illness Narrative TRAUMA [...] Reactions Penicillins Rash Current Medications SCHEDULED PRN dpxpftikvl-tiyykjfbhdsag-evww dextrose dextrose 5 % in water dextrose [...] Reactions Penicillins Rash Current Medications SCHEDULED PRN lvddrbrmza-zgislbymkdkgw-dkwy dextrose dextrose 5 % in water dextrose [...] Reactions Penicillins Rash Current Medications SCHEDULED PRN ayithqstsq-xzqrubplgojbq-pudq dextrose dextrose 5 % in water dextrose [...] Admission Diagnosis: Syncope [R55] ICH (intracerebral hemorrhage) ([facility]) [I61.9] Reviewing patient due to her recent transfer out from Intensive Care. Recorded vital signs are stable and the patient is not noted to be in any apparent distress. Telemetry and monitoring noted. Staff may call with any issues or concerns regarding her clinical presentation or stability. Thank you, Lulu Jimenez RN Rapid Response: [facility] Images from the original note were not included. FOLLOW-UP: Post-Intensive Care Rounding Note Patient: Kelin Rosenberg : 1940 Age: 83 y.o. Length of Stay: 2 days Admission Diagnosis: Syncope [R55] ICH (intracerebral hemorrhage) ([facility]) [I61.9] Reviewing patient due to her recent transfer out from Intensive Care. Recorded vital signs are stable and the patient is not noted to be in any apparent distress. Telemetry and monitoring noted. Staff may call with any issues or concerns regarding her clinical presentation or stability. Thank you, INEZ MONTEMAYOR RN Rapid Response: [facility] TRAUMA SURGERY - PROGRESS NOTE Patient: [...] lethargic but stable per my exam. Hse deployment specialist answer all questions appropriatly. Attempting to get [...] Reactions Penicillins Rash Current Medications SCHEDULED PRN vtunknohii-gonimunkpileu-ghwp dextrose dextrose 5 % in water dextrose [...] Admission Diagnosis: Syncope [R55] ICH (intracerebral hemorrhage) ([facility]) [I61.9] Reviewing patient due to her recent transfer out from Intensive Care. Recorded vital signs are stable and the patient is not noted to be in any apparent distress. Telemetry and monitoring noted. Staff may call with any issues or concerns regarding her clinical presentation or stability. Thank you, Lulu Jimenez RN Rapid Response: [facility] TRAUMA SURGERY - PROGRESS NOTE Patient: [...] or depressed calvarial fracture. Intracranial atherosclerosis. Absent kaibab lenses. Visualized mastoid air cells are well [...] MD LAKE Villagomez APRN-CNP Trauma Services Pager: [phone] 12/15/23 9:14 AM SWAPNIL Arias 12/15/23 09 Images from the original note were not included. [facility] ACADEMIC SERVICE PROGRESS NOTE [...] called EMS. She was admitted initially to [place], where imaging revealed subarachnoid hemorrhage, otherwise hemodynamically stable, sinus rhythm. She got a loop recorder implanted there and was transferred to [facility] neuro ICU. Cardiology was consulted for [...] or depressed calvarial fracture. Intracranial atherosclerosis. Absent kaibab lenses. Visualized mastoid air cells are well [...] test was unremarkable in 05/2023, following with [facility] cardiology. Troponin was negative No prior TTE on file, plan to do TTE on 12/15/2023 Telemetry showed regular sinus rhythm with no tachycardia / Afib/irregularity. PLAN follow-up transthoracic echo, we will sign off if echo result is normal continuous telemetry, noted that was placed at [facility] following initial event Rest of management by primary team cardiology will continue to follow Rhett Treviño MD Internal Medicine, PGY-1 12/15/2023 8:10 AM NOTE: This note should be attested by the attending, this is not the final plan, please refer to the attestation statement. [facility] CARDIOLOG[facility] TEACHING SERVICE This note was completed using a voice patient ambassador system. Every effort was made to ensure accuracy. However, inadvertent computerized patient ambassador errors may be present. 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 A loop recorder was placed by [facility] I believe She can follow-up [...] Surgical Critical Care documented in this encounter [facility] 12-19-2023 Plan of care note Problem: Pain Goal: Patient goal is pain score less than 4, able to rest, and participant in treatment plan as appropriate Description: INTERVENTIONS: 1. Encourage patient or legal security representative to report early pain and ask [...] per policy 9. Teach patient or legal security representative interventions for comforting Outcome: Progressing Note: Evaluation of progress towards goal: robertson controlled with prn meds [facility] 12-19-2023 Plan of care note Problem: Pain Goal: Patient goal is pain score less than 4, able to rest, and participant in treatment plan as appropriate Description: INTERVENTIONS: 1. Encourage patient or legal security representative to report early pain and ask [...] per policy 9. Teach patient or legal security representative interventions for comforting Outcome: Progressing Note: [...] at the bedside 7. Instruct patient/ patient security representative about use of safety devices 8. Include patient/ patient security representative in decisions related to safety Outcome: [...] hygiene technique 7. Identify and instruct patient/patient security representative in use of appropriate isolation precautions for identified infection/symptoms 8. Provide and discuss with patient/patient security representative on educational MDRO sheet 9. Encourage and monitor nutritional status daily and consult manager port if indicated 10. Implement neutropenic guidelines as needed 11. Review exposure to history of communicable disease and recent travel history on admission 12. Encourage annual influenza vaccine 13. Encourage pneumonia vaccine Outcome: Progressing Note: Evaluation of progress towards goal: Patient remains free from signs and symptoms of infections at current time, plan of care still ongoing. Problem: Knowledge Deficit Goal: Patient/patient security representative demonstrates understanding of disease process, treatment [...] is planned to be discharged to a fpc facility with appropriate resources. Problem: Moderate - High Risk Fall Score Description: Coleman Fall Score of =/> 25 or indicated by [facility] Assessment Goal: Patient should be free from fall Description: Interventions: 1. [place] to environment 2. Hourly rounds addressing the [...] non-skid footwear 11. Teach patient and patient security representative to maintain environment for safety and [...] (cane, walker) within reach 19. Request patient security representative bring adaptive equipment/mobility aids from home or obtain and provide as needed 20. Consult pharmacy regarding effects of med's affecting mobility, cognition, and alternatives 21. Obtain physician order for PT if risk factors associated with mobility are present 22. Obtain physician order for OT as appropriate 23. Utilize diversional activities 24. Educate patient and patient security representative how to maintain a safe environment during visitation times (notify nurse prior to leaving bedside) 25. Consider appropriateness of medical or non-emergency medical tech 26. Set up voiding schedule as appropriate [...] Qshift skin assessments and proper hygiene care. [facility] 12-18-2023 Plan of care note Problem: Pain Goal: Patient goal is pain score less than 4, able to rest, and participant in treatment plan as appropriate Description: INTERVENTIONS: 1. Encourage patient or legal security representative to report early pain and ask [...] per policy 9. Teach patient or legal security representative interventions for comforting Outcome: Progressing Note: Evaluation of progress towards goal: no pain reported [facility] 12-17-2023 Plan of care note Problem: Pain Goal: Patient goal is pain score less than 4, able to rest, and participant in treatment plan as appropriate Description: INTERVENTIONS: 1. Encourage patient or legal security representative to report early pain and ask [...] per policy 9. Teach patient or legal security representative interventions for comforting Note: Evaluation of [...] at the bedside 7. Instruct patient/ patient security representative about use of safety devices 8. Include patient/ patient security representative in decisions related to safety Note: Evaluation of progress towards goal: fall risk education, safety checks Problem: Knowledge Deficit Goal: Patient/patient security representative demonstrates understanding of disease process, treatment plan, medications, and discharge instructions Description: INTERVENTIONS 1. Complete learning assessment and assess knowledge base 2. Provide teaching at level of understanding 3. Provide teaching via preferred learning method(s) Note: Evaluation of progress towards goal: medication education. Pt to go to SNF at discharge [facility] 12-17-2023 Nurse Note MAUREEN nurseElsa, monitoring pt while in Vascular. [facility] 12-17-2023 Nurse Note MAUREEN nurseElsa, monitoring pt while in Vascular. Multidisciplinary Rounds Attendees: Bedside RN, Unit clinical lead, Stroke RN, PT, OT, BED LASTER, and Care navigation Diet: Dietary Orders (From admission, onward) Start Ordered 12/14/23 1010 Adult diet Regular Texture; Consistent Carb 255 grams (2000 kcal) Diet effective now Question Answer Comment Diet Type: Regular Texture Carbohydrate Modifiers: Consistent Carb 255 grams (2000 kcal) 12/14/23 1010 PT OT BED LASTER: PT OT BED LASTER Orders (From admission, onward) Start Ordered 12/14/23 [...] 88, RR 16, SPO2 99. RN (the singer songwriter) gave tylenol & called Trauma CLAY PRESS OPERATOR. STAT CTB completed to r/o worsening brain bleed. Care continues. Multidisciplinary Rounds Attendees: Bedside RN and Care navigation Diet: Dietary Orders (From admission, onward) Start Ordered 12/14/23615 Adult diet NPO; Except medications Diet effective now Question Answer Comment Diet Type: NPO NPO Except: Except medications 12/14/23614 PT OT BED LASTER: PT OT BED LASTER Orders (From admission, onward) Start Ordered 12/14/23615 [...] Needs PT/OT evaluation [facility] of care note Problem: Pain Goal: Patient goal is pain score less than 4, able to rest, and participant in treatment plan as appropriate Description: INTERVENTIONS: 1. Encourage patient or legal security representative to report early pain and ask [...] per policy 9. Teach patient or legal security representative interventions for comforting Outcome: Progressing Note: [...] at the bedside 7. Instruct patient/ patient security representative about use of safety devices 8. Include patient/ patient security representative in decisions related to safety Outcome: [...] hygiene technique 7. Identify and instruct patient/patient security representative in use of appropriate isolation precautions for identified infection/symptoms 8. Provide and discuss with patient/patient security representative on educational MDRO sheet 9. Encourage and monitor nutritional status daily and consult manager port if indicated 10. Implement neutropenic guidelines as [...] to monitor. Problem: Knowledge Deficit Goal: Patient/patient security representative demonstrates understanding of disease process, treatment [...] SNF at discharge, referral sent to [facility], awaiting precert. Family updated. PIT CLERK following, transport will be setup once authorization received. Problem: Moderate - High Risk Fall Score Description: Coleman Fall Score of =/> 25 or indicated by [facility] Assessment Goal: Patient should be free from fall Description: Interventions: 1. [place] to environment 2. Hourly rounds addressing the [...] non-skid footwear 11. Teach patient and patient security representative to maintain environment for safety and [...] (cane, walker) within reach 19. Request patient security representative bring adaptive equipment/mobility aids from home or obtain and provide as needed 20. Consult pharmacy regarding effects of med's affecting mobility, cognition, and alternatives 21. Obtain physician order for PT if risk factors associated with mobility are present 22. Obtain physician order for OT as appropriate 23. Utilize diversional activities 24. Educate patient and patient security representative how to maintain a safe environment during visitation times (notify nurse prior to leaving bedside) 25. Consider appropriateness of medical or non-emergency medical tech 26. Set up voiding schedule as appropriate [...] supplement as ordered 13. Collaborate with clinical manager port 14. Include patient/ patient's security representative in decisions related to nutrition Outcome: [...] Able to reposition self. Continue to monitor [facility] 12-17-2023 Plan of care note Problem: Pain Goal: Patient goal is pain score less than 4, able to rest, and participant in treatment plan as appropriate Description: INTERVENTIONS: 1. Encourage patient or legal security representative to report early pain and ask [...] per policy 9. Teach patient or legal security representative interventions for comforting Outcome: Progressing Note: [...] at the bedside 7. Instruct patient/ patient security representative about use of safety devices 8. Include patient/ patient security representative in decisions related to safety Outcome: [...] hygiene technique 7. Identify and instruct patient/patient security representative in use of appropriate isolation precautions for identified infection/symptoms 8. Provide and discuss with patient/patient security representative on educational MDRO sheet 9. Encourage and monitor nutritional status daily and consult manager port if indicated 10. Implement neutropenic guidelines as needed 11. Review exposure to history of communicable disease and recent travel history on admission 12. Encourage annual influenza vaccine 13. Encourage pneumonia vaccine Outcome: Progressing Note: Evaluation of progress towards goal: Problem: Moderate - High Risk Fall Score Description: Coleman Fall Score of =/> 25 or indicated by [facility] Assessment Goal: Patient should be free from fall Description: Interventions: 1. [place] to environment 2. Hourly rounds addressing the [...] non-skid footwear 11. Teach patient and patient security representative to maintain environment for safety and [...] (cane, walker) within reach 19. Request patient security representative bring adaptive equipment/mobility aids from home or obtain and provide as needed 20. Consult pharmacy regarding effects of med's affecting mobility, cognition, and alternatives 21. Obtain physician order for PT if risk factors associated with mobility are present 22. Obtain physician order for OT as appropriate 23. Utilize diversional activities 24. Educate patient and patient security representative how to maintain a safe environment during visitation times (notify nurse prior to leaving bedside) 25. Consider appropriateness of medical or non-emergency medical tech 26. Set up voiding schedule as appropriate (every 2 hours) Outcome: Progressing Note: Evaluation of progress towards goal: fall risk education [facility] 12-16-2023 Plan of care note Problem: Pain Goal: Patient goal is pain score less than 4, able to rest, and participant in treatment plan as appropriate Description: INTERVENTIONS: 1. Encourage patient or legal security representative to report early pain and ask [...] per policy 9. Teach patient or legal security representative interventions for comforting Outcome: Progressing Note: [...] at the bedside 7. Instruct patient/ patient security representative about use of safety devices 8. Include patient/ patient security representative in decisions related to safety Outcome: [...] hygiene technique 7. Identify and instruct patient/patient security representative in use of appropriate isolation precautions for identified infection/symptoms 8. Provide and discuss with patient/patient security representative on educational MDRO sheet 9. Encourage and monitor nutritional status daily and consult manager port if indicated 10. Implement neutropenic guidelines as needed 11. Review exposure to history of communicable disease and recent travel history on admission 12. Encourage annual influenza vaccine 13. Encourage pneumonia vaccine Outcome: Progressing Note: Evaluation of progress towards goal: Problem: Knowledge Deficit Goal: Patient/patient security representative demonstrates understanding of disease process, treatment [...] of =/> 25 or indicated by [facility] Assessment Goal: Patient should be free from fall Description: Interventions: 1. [place] to environment 2. Hourly rounds addressing the [...] non-skid footwear 11. Teach patient and patient security representative to maintain environment for safety and [...] (cane, walker) within reach 19. Request patient security representative bring adaptive equipment/mobility aids from home or obtain and provide as needed 20. Consult pharmacy regarding effects of med's affecting mobility, cognition, and alternatives 21. Obtain physician order for PT if risk factors associated with mobility are present 22. Obtain physician order for OT as appropriate 23. Utilize diversional activities 24. Educate patient and patient security representative how to maintain a safe environment during visitation times (notify nurse prior to leaving bedside) 25. Consider appropriateness of medical or non-emergency medical tech 26. Set up voiding schedule as appropriate [...] supplement as ordered 13. Collaborate with clinical manager port 14. Include patient/ patient's security representative in decisions related to nutrition Outcome: [...] Progressing Note: Evaluation of progress towards goal: [facility] 12-16-2023 Progress note Formatting of t his note might be different from the original. DISCHARGE PLANNING NOTE Referral to [facility] (P# ; F# ) , [facility] (P#: ; F#: ) , [facility] [place] (P# [phone]; F# [phone]) [facility] 12-16-2023 Progress note Formatting of t his note is different from the original. Images from the original note were not included. DISCHARGE PLANNING NOTE Services Requested: Services Requested Discharge Disposition: SNF Does the patient need discharge transportation arranged?: Yes Transportation Arranged: Ambulance Visiting Physician/Provider: Jennifer Kc MD Initial DC Assessment Completed: Yes Patient Goals: Patient/Caregiver Goals Patient/Caregiver Goals: Intermediate Care Skilled [place] Care: Skilled Care (Short [...] gas and electric. Patient's preferred pharmacy is [facility] in [facility]. Per patient self report: Drug use: deny [...] and provided CN with 3 choices: [facility] in [place], [facility], and [facility] in [place]. [facility] Navigation [facility] tasked to send referral to the three SNF choices. Patient has traditional medicare and will need a 3 midnight stay, no precert needed . 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 - Nandini Brown RN 12/16/23 3:43 PM [employer] 12-16-2023 Progress note Formatting of t his note is different from the original. Occupational Therapy Evaluation Discharge Recommendations OT Recommendations : Intermediate Facility SNF/ECF Comments: patient would benefit from [...] Initial CT head: negative. Patient went to [place] and was kept for observation and was discharged home the next day. Family noted slurred speech and patient went back to hospital and was found to have SAH. Transfer to [facility]. CT head; small SAH in right [...] gait belt, IV and 2 liters oxygen. Telemetry/Director Talent: Yes Oxygen Used: 2 liters oxygen. Other: [...] Patient will perform dressing LB with Modified [place] Dates: Start: 12/16/23 Expected End: 01/15/24 Description: Goal Description: Disciplines: OT Problem: Dressing UB Dates: Start: 12/16/23 Disciplines: OT Goal: Patient will perform dressing UB with Modified [place] Dates: Start: 12/16/23 Expected End: 01/15/24 Description: Goal Description: Disciplines: OT Problem: Functional Mobility Dates: Start: 12/16/23 Disciplines: OT Goal: Patient will perform functional mobility with Modified [place] Dates: Start: 12/16/23 Expected End: 01/15/24 Description: [...] Patient will perform toilet transfers with Modified [place] Dates: Start: 12/16/23 Expected End: 01/15/24 Description: [...] resolved problems. Principal Problem: ICH (intracerebral hemorrhage) ([facility]) [facility] [employer] [facility] 12-16-2023 Progress note Formatting of t his note is different from the original. Physical Therapy Evaluation Discharge Recommendations PT Recommendations: Intermediate Facility SNF/ECF Comments: due to decline in [...] and recent COVID infection. Pt admit from [facility]. Pt was seen at hospital on 12/10 s/p fall at home, pt amnestic to events but found her. Initial CT head (-) and pt kept for observation overnight and discharged to home next day. Family noted slurred speech and returned to hospital where concern for SAH was noted on imaging and pt transferred to [facility]. 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 Dtr reports recently decline in balance and mobility Prior Function Lives With: Spouse (Gene who is in good health) Receives Help From: Family (local dtr Jean and son Lazaro in [place]) Level of Mobility: Independent with ADLs and [...] resolved problems. Principal Problem: ICH (intracerebral hemorrhage) ([facility]) [facility] 12-16-2023 Plan of care note Problem: Pain Goal: Patient goal is pain score less than 4, able to rest, and participant in treatment plan as appropriate Description: INTERVENTIONS: 1. Encourage patient or legal security representative to report early pain and ask [...] per policy 9. Teach patient or legal security representative interventions for comforting Outcome: Progressing Note: [...] at the bedside 7. Instruct patient/ patient security representative about use of safety devices 8. Include patient/ patient security representative in decisions related to safety Outcome: [...] hygiene technique 7. Identify and instruct patient/patient security representative in use of appropriate isolation precautions for identified infection/symptoms 8. Provide and discuss with patient/patient security representative on educational MDRO sheet 9. Encourage and monitor nutritional status daily and consult manager port if indicated 10. Implement neutropenic guidelines as needed 11. Review exposure to history of communicable disease and recent travel history on admission 12. Encourage annual influenza vaccine 13. Encourage pneumonia vaccine Outcome: Progressing Note: Evaluation of progress towards goal: [facility] 12-15-2023 Plan of care note Brief Neurosurgery Note Repeat CT imaging remains stable. There are no neurosurgical interventions warranted. Continue Keppra x 7 days for seizure prophylaxis. SBP < 140. No activity restrictions from NS standpoint. Ok for chemical DVT prophylaxis. Neurosurgery will sign off at this time. No formal follow up warranted. Please call with any further needs. Jodie K[facility]FT [facility] Contact via patient touch 12/15/23 1:08 PM SWAPNIL Herrera 12/15/23 3080 [facility] 12-15-2023 Plan of care note Problem: Pain Goal: Patient goal is pain score less than 4, able to rest, and participant in treatment plan as appropriate Description: INTERVENTIONS: 1. Encourage patient or legal security representative to report early pain and ask [...] per policy 9. Teach patient or legal security representative interventions for comforting Outcome: Progressing Note: Evaluation of progress towards goal: pain controlled with prn meds [facility] 12-15-2023 Plan of care note Problem: Pain Goal: Patient goal is pain score less than 4, able to rest, and participant in treatment plan as appropriate Description: INTERVENTIONS: 1. Encourage patient or legal security representative to report early pain and ask [...] per policy 9. Teach patient or legal security representative interventions for comforting Outcome: Progressing Note: [...] at the bedside 7. Instruct patient/ patient security representative about use of safety devices 8. Include patient/ patient security representative in decisions related to safety Outcome: [...] hygiene technique 7. Identify and instruct patient/patient security representative in use of appropriate isolation precautions for identified infection/symptoms 8. Provide and discuss with patient/patient security representative on educational MDRO sheet 9. Encourage and monitor nutritional status daily and consult manager port if indicated 10. Implement neutropenic guidelines as needed 11. Review exposure to history of communicable disease and recent travel history on admission 12. Encourage annual influenza vaccine 13. Encourage pneumonia vaccine Outcome: Progressing Note: Evaluation of progress towards goal: Patient afebrile at this time and vital signs stable. No signs or symptoms of infection. Problem: Knowledge Deficit Goal: Patient/patient security representative demonstrates understanding of disease process, treatment [...] Score of =/> 25 [facility] Goal: Patient should be free from fall Description: Interventions: 1. [place] to environment 2. Hourly rounds addressing the [...] non-skid footwear 11. Teach patient and patient security representative to maintain environment for safety and [...] (cane, walker) within reach 19. Request patient security representative bring adaptive equipment/mobility aids from home or obtain and provide as needed 20. Consult pharmacy regarding effects of med's affecting mobility, cognition, and alternatives 21. Obtain physician order for PT if risk factors associated with mobility are present 22. Obtain physician order for OT as appropriate 23. Utilize diversional activities 24. Educate patient and patient security representative how to maintain a safe environment during visitation times (notify nurse prior to leaving bedside) 25. Consider appropriateness of medical or non-emergency medical tech 26. Set up voiding schedule as appropriate [...] supplement as ordered 13. Collaborate with clinical manager port 14. Include patient/ patient's security representative in decisions related to nutrition Outcome: [...] patient's skin is kept clean and dry. [facility] 12-15-2023 Nurse Note Multidisciplinary Rounds Attendees: Bedside RN, Unit clinical lead, Stroke RN, PT, OT, BED LASTER, and Care navigation Diet: Dietary Orders (From admission, onward) Start Ordered 12/14/23 1010 Adult diet Regular Texture; Consistent Carb 255 grams (2000 kcal) Diet effective now Question Answer Comment Diet Type: Regular Texture Carbohydrate Modifiers: Consistent Carb 255 grams (2000 kcal) 12/14/23 1010 PT OT BED LASTER: PT OT BED LASTER Orders (From admission, onward) Start Ordered 12/14/23 [...] Barriers: None Discharge Plan: Needs PT/OT evaluation [facility] 12-14-2023 Nurse Note Pt. c/o 10/10 headache, shaking, moaning & stating hurts so bad, somebody help me . Pt. c/o sharp, throbbing pain in frontal region of head. Negative for nausea/vomiting. Vital signs stable, BP 120/59, HR 88, RR 16, SPO2 99. RN (the singer songwriter) gave tylenol & called Trauma CLAY PRESS OPERATOR. STAT CTB completed to r/o worsening brain bleed. Care continues. [facility] 12-14-2023 Plan of care note Problem: Pain Goal: Patient goal is pain score less than 4, able to rest, and participant in treatment plan as appropriate Description: INTERVENTIONS: 1. Encourage patient or legal security representative to report early pain and ask [...] per policy 9. Teach patient or legal security representative interventions for comforting Outcome: Progressing Note: [...] at the bedside 7. Instruct patient/ patient security representative about use of safety devices 8. Include patient/ patient security representative in decisions related to safety Outcome: [...] hygiene technique 7. Identify and instruct patient/patient security representative in use of appropriate isolation precautions for identified infection/symptoms 8. Provide and discuss with patient/patient security representative on educational MDRO sheet 9. Encourage and monitor nutritional status daily and consult manager port if indicated 10. Implement neutropenic guidelines as [...] abnormal labs. Problem: Knowledge Deficit Goal: Patient/patient security representative demonstrates understanding of disease process, treatment [...] of =/> 25 or indicated by [facility] Assessment Goal: Patient should be free from fall Description: Interventions: 1. [place] to environment 2. Hourly rounds addressing the [...] non-skid footwear 11. Teach patient and patient security representative to maintain environment for safety and [...] (cane, walker) within reach 19. Request patient security representative bring adaptive equipment/mobility aids from home or obtain and provide as needed 20. Consult pharmacy regarding effects of med's affecting mobility, cognition, and alternatives 21. Obtain physician order for PT if risk factors associated with mobility are present 22. Obtain physician order for OT as appropriate 23. Utilize diversional activities 24. Educate patient and patient security representative how to maintain a safe environment during visitation times (notify nurse prior to leaving bedside) 25. Consider appropriateness of medical or non-emergency medical tech 26. Set up voiding schedule as appropriate [...] supplement as ordered 13. Collaborate with clinical manager port 14. Include patient/ patient's security representative in decisions related to nutrition Outcome: [...] Collaboration with interdisciplinary teams considered as needed. [facility] [employer] 12-14-2023 Plan of care note Problem: Pain Goal: Patient goal is pain score less than 4, able to rest, and participant in treatment plan as appropriate Description: INTERVENTIONS: 1. Encourage patient or legal security representative to report early pain and ask [...] per policy 9. Teach patient or legal security representative interventions for comforting Outcome: Progressing Note: [...] at the bedside 7. Instruct patient/ patient security representative about use of safety devices 8. Include patient/ patient security representative in decisions related to safety Outcome: [...] hygiene technique 7. Identify and instruct patient/patient security representative in use of appropriate isolation precautions for identified infection/symptoms 8. Provide and discuss with patient/patient security representative on educational MDRO sheet 9. Encourage and monitor nutritional status daily and consult manager port if indicated 10. Implement neutropenic guidelines as needed 11. Review exposure to history of communicable disease and recent travel history on admission 12. Encourage annual influenza vaccine 13. Encourage pneumonia vaccine Outcome: Progressing Note: Evaluation of progress towards goal: daily CBC monitored Problem: Knowledge Deficit Goal: Patient/patient security representative demonstrates understanding of disease process, treatment [...] be free from fall Description: Interventions: 1. [place] to environment 2. Hourly rounds addressing the [...] non-skid footwear 11. Teach patient and patient security representative to maintain environment for safety and [...] (cane, walker) within reach 19. Request patient security representative bring adaptive equipment/mobility aids from home or obtain and provide as needed 20. Consult pharmacy regarding effects of med's affecting mobility, cognition, and alternatives 21. Obtain physician order for PT if risk factors associated with mobility are present 22. Obtain physician order for OT as appropriate 23. Utilize diversional activities 24. Educate patient and patient security representative how to maintain a safe environment during visitation times (notify nurse prior to leaving bedside) 25. Consider appropriateness of medical or non-emergency medical tech 26. Set up voiding schedule as appropriate (every 2 hours) Outcome: Progressing Note: Evaluation of progress towards goal: no falls,call light within reach [facility] 12-14-2023 Consult note Associated Order (s): IP CONSULT TO CARDIOLOGY Images from the original note were not included. [facility] [address] [place] [address] HISTORY & PHYSICAL / CONSULT NOTE Kelin [...] called EMS. She was admitted initially to [place], where imaging revealed subarachnoid hemorrhage, otherwise hemodynamically stable, sinus rhythm. She got a loop recorder implanted there and was transferred to [facility] neuro ICU. Cardiology was consulted for [...] mg 1,000 mg oral Q6H PRN KIRBY NorrisSENIOR PRODUCT ENGINEER 1,000 mg at 12/14/23 1321 atorvastatin (LIPITOR) [...] tablet 500 mg 500 mg oral Q12H [facility] Chio Ayoub APRN-JAMESON metoprolol succinate XL (TOPROL XL) 24 hr tablet 50 mg 50 mg oral Nightly VIKI Manuel ondansetron (PF) (ZOFRAN) injection 4 mg 4 mg intravenous Q6H PRN Chio Ayoub APRN-SENIOR PRODUCT ENGINEER 4 mg at 12/14/23 0832 potassium bicarbonate (K-LYTE) 25 MEQ disintegrating tablet 25 mEq 25 mEq oral BID VIKI Manuel sennosides-docusate sodium (SENOKOT-S) 8.6-50 mg 2 tablet 2 tablet oral Nightly Chio Ayoub APRN-JAMESON sodium chloride 0.9 % flush 3 mL 3 mL intravenous PRN Chio Ayoub, FOOD PRODUCTION ASSOCIATE-JAMESON sodium chloride 0.9 % flush 3 mL 3 mL intravenous Q12H [facility] Chio Ayoub APRN-JAMESON 3 mL at 12/14/23 [...] test was unremarkable in 05/2023, following with [facility] cardiology No prior TTE on file Interventricular conduction delay on EKG PLAN - follow-up transthoracic echo - continuous telemetry, noted that was placed at [facility] following initial event - follow up troponin - cardiology will continue to follow Johnson Degroot MD This note was completed using a voice patient ambassador system. Every effort was made to ensure accuracy. However, inadvertent computerized patient ambassador errors may be present. Associated attestation - [...] she can follow up with her general chute worker at [facility]. In the meantime we will get an echo which will give us a reasonable idea of the likelihood for ventricular arrhythmias but ultimately will be nondiagnostic. As far as ischemia concerned we are not suspicious of this as she has no baseline chest pain or tightness, we have sent a troponin. We will continue monitoring on telemetry [employer] Work Phone: 12-14-2023 Progress note Formatting of t his note is different from the original. Physical Therapy (P) CANCEL - Deferred (Hold at this time per RNDuyen - pt not feeling well.) Will check back as appropriate. [employer] [facility] 12-14-2023 Progress note Formatting of t his note is different from the original. Occupational Therapy CANCEL - Deferred (spoke with ROSIE Geller, patient is not having the best day, would like therapy to hold today) [employer] Work Phone: 12-14-2023 Consult note Associated Order (s): IP CONSULT TO NEUROSURGERY Images from the original note were not included. [facility] [address] [place] [address], [address] [place] [address] * NEUROSURGERY CONSULT NOTE DATE:12/14/2023 PATIENT'S NAME: Kelin Rosenberg PATIENT'S PATIENT'S : 1940 NEUROSURGERY ATTENDING: Dr. Schmitt REASON FOR CONSULT Subarachnoid hemorrhage HISTORY OF PRESENT ILLNESS eKlin Rosenberg is a 83 y.o. White or [...] for further assistance. Patient was taken to [facility] where initially CT of the brain was read negative. Patient was admitted for observation overnight and was sent home the next morning. Family later noticed she had slurred speech and subarachnoid hemorrhage was found on imaging studies. Patient was transferred to [facility] as a trauma consult and Neurosurgery [...] 10 mg, intravenous, Q4H PRN, Chio Ayoub FOOD PRODUCTION ASSOCIATE-JAMESON levETIRAcetam (KEPPRA) IVPB 500 mg/100 mL in iso-osmotic sodium chloride (5 mg/mL premix), 500 mg, intravenous, Q12H NAZ OR levETIRAcetam (KEPPRA) tablet 500 mg, 500 mg, oral, Q12H NAZ, Chio Ayoub FOOD PRODUCTION ASSOCIATE-JAMESON ondansetron (PF) (ZOFRAN) injection 4 mg, 4 mg, intravenous, Q6H PRN, Chio Ayoub APRN-JAMESON, 4 mg at 12/14/23 0832 sennosides-docusate sodium (SENOKOT-S) 8.6-50 mg 2 tablet, 2 tablet, oral, Nightly, Chio Ayoub, FOOD PRODUCTION ASSOCIATE-SENIOR PRODUCT ENGINEER sodium chloride 0.9 % flush 3 mL, 3 mL, intravenous, PRN, Chio Ayoub, FOOD PRODUCTION ASSOCIATE-SENIOR PRODUCT ENGINEER sodium chloride 0.9 % flush 3 mL, 3 mL, intravenous, Q12H NAZ, Chio Ayoub, FOOD PRODUCTION ASSOCIATE-SENIOR PRODUCT ENGINEER sodium chloride 0.9 % infusion, 10 mL/hr, [...] to person, place and time. Speech clear. [place] The patient exhibits unlabored breathing and normal [...] - Further management per Trauma Jodie KRAFT [facility] Contact via patient touch 12/14/23 11:12 AM SWAPNIL Herrera 12/14/23 1112 [employer] Work Phone: 12-14-2023 Progress note Formatting [...] continue to follow along. Prognosis Services: Skilled BED LASTER services to address the above deficits Prognosis/Potential: [...] Problem: Auditory Comprehension Dates: Start: 12/14/23 Disciplines: BED LASTER Goal: LTG: Patient will comprehend communication related to basic medical and social needs and utilize compensatory strategies to maintain safety in a functional living environment Dates: Start: 12/14/23 Expected End: 01/14/24 Disciplines: BED LASTER Goal: STG: Patient will complete complex, paragraph level auditory comprehension tasks with 90% accuracy with minimal cueing Dates: Start: 12/14/23 Expected End: 01/14/24 Disciplines: BED LASTER Problem: Cognitive Linguistic Dates: Start: 12/14/23 Disciplines: BED LASTER Goal: LTG: Patient will display functional cognitive-linguistic skills to demonstrate appropriate communication and safety within daily activities in a functional living environment Dates: Start: 12/14/23 Expected End: 01/14/24 Disciplines: BED LASTER Goal: STG: Patient will describe/demonstrate/initiate use of 3 memory strategies with minimal cueing Dates: Start: 12/14/23 Expected End: 01/14/24 Disciplines: BED LASTER Problem: High Level Language Dates: Start: 12/14/23 Disciplines: BED LASTER Goal: LTG: Patient will demonstrate use of self-awareness, goal setting, planning, initiation, self-monitoring and problem solving during daily activities to improve safety and awareness in a functional living environment Dates: Start: 12/14/23 Expected End: 01/14/24 Disciplines: BED LASTER Goal: STG: Patient will complete simple to complex organization, scheduling, planning and reasoning tasks to improve problem solving and safety awareness with 90% accuracy with minimal cueing Dates: Start: 12/14/23 Expected End: 01/14/24 Disciplines: BED LASTER Problem: Speech Production Dates: Start: 12/14/23 Disciplines: BED LASTER Goal: LTG: Patient will develop functional and intelligible speech and utilize compensatory strategies through the use of adequate labial and lingual function, increased articulatory precision and speech prosody Dates: Start: 12/14/23 Expected End: 01/14/24 Disciplines: BED LASTER Goal: STG: Patient will use appropriate articulatory accuracy and speech rate when reading/speaking with 90% accuracy with minimal cueing Dates: Start: 12/14/23 Expected End: 01/14/24 Disciplines: BED LASTER Goal: STG: Patient will complete rapid alternating verbal sequences (tongue twisters) with improved articulatory precision with 90% accuracy with minimal cueing Dates: Start: 12/14/23 Expected End: 01/14/24 Disciplines: BED LASTER Problem: Verbal Expression Dates: Start: 12/14/23 Disciplines: BED LASTER Goal: LTG: Patient will utilize compensatory strategies to communicate wants and needs effectively to different conversational partners, maintain safety and participate socially in a functional living environment Dates: Start: 12/14/23 Expected End: 01/14/24 Disciplines: BED LASTER Goal: STG: Patient will complete simple to complex divergent and convergent naming tasks with 90% accuracy with minimal cueing to improve thought organization Dates: Start: 12/14/23 Expected End: 01/14/24 Disciplines: BED LASTER Speech Therapy Care Plan (Resolved) There are no resolved problems. Principal Problem: ICH (intracerebral hemorrhage) ([facility]) [facility] 12-14-2023 Progress note Formatting of t his note is different from the original. Physical Therapy (P) CANCEL - Deferred (Awaiting NS consult regarding new ICH bleed) Will check back as appropriate. [facility] 12-14-2023 Progress note Formatting of t his note is different from the original. Occupational Therapy CANCEL - Deferred (patient has ICH and awaiting neurosurgery consult) [facility] 12-14-2023 Nurse Note Multidisciplinary Rounds Attendees: Bedside RN and Care navigation Diet: Dietary Orders (From admission, onward) Start Ordered 12/14/23 0616 Adult diet NPO; Except medications Diet effective now Question Answer Comment Diet Type: NPO NPO Except: Except medications 12/14/23 0615 PT OT BED LASTER: PT OT BED LASTER Orders (From admission, onward) Start Ordered 12/14/23 [...] Barriers: None Discharge Plan: Needs PT/OT evaluation [facility] 12-14-2023 History and physical note Images from the original note were not included. Trauma Surgery History & Physical Examination /Consultation Note Patient: Kelin Rosenberg Date of : 1940 Estimated time of injury: 2 days ago LOC: no Transport: EMS from [place] Trauma level: Trauma Consult Work related: No History of Present Illness Kelin Rosenberg is an 83 y.o. White or female states on Tuesday her reports that she fell in the living room. She is amnestic to events. She was initially taken to [facility] and had a CTH which was read as negative and she was admitted for observation status overnight and sent home the following morning. Family later noticed she had slurred speech and she was taken back to the hospital and found that she did have a subarachnoid on original imaging. They spoke with [facility] Stroke - felt this was traumatic, she was transferred to [facility] for definitive care. On arrival she [...] Interpersonal Safety: Unknown (06/09/2023) Received from [facility] Safety & Environment Fear of Current or [...] ECG 12-LEAD Result Date: 12/13/2023 Narrative: [place] [address] Electrocardiograph Report Signed Patient: KELIN ROSENBERG MR#: [id number] : 1940 Acct:[id number] Age/Sex: 83 / F ADM Date: 12/11/23 Loc: MS 201-[address]: Jennifer Kc M.D. Ordering Physician: Lonnie Washburn Date of Service: 12/11/23 Procedure(s): ECG 12 lead Accession Number(s): [id number] cc: The [facility] Test Date: 2023-12-11 Pat Name: KELIN ROSENBERG Department: Room: - Gender: Female Planning Official: : 1940 Requested By: JENNIFER KC Order Number: [id number] Reading MD: RAMIN OROZCO Measurements Intervals [place] Rate: 49 P: -4 MN: 174 QRS: 127 QRSD: 122 T: 11 QT: 430 QTc: 402 Interpretive Statements 1130 Sinus bradycardia 3234 Anteroseptal myocardial infarction, age undetermined 5120 Possible right ventricular hypertrophy 9150 abnormal ECG No previous ECG available for comparison Electronically Signed On 12-13-2023 22:20:57 EDT by RAMIN OROZCO Dictated By: Ramin Orozco D.O. Signed By: 12/13/23 2229 DD/ 4232 TD/TT: Clinical Informaticist: Independently reviewed radiographic studies to evaluate for [...] Score is: 12 Motor: Left Side Strength: Account Specialist: 5/5 Dorsi/Plantar Flexion: 5/5 Right Side Strength: Account Specialist: 5/5 Dorsi/Plantar Flexion: 5/5 Skin: Skin is [...] can be reached via Patient Touch Pager: [phone] SWAPNIL Norris 12/14/23 0543 [employer] Work Phone: 12-14-2023 History and physical note Images from the original note were not included. Trauma Surgery History & Physical Examination /Consultation Note Patient: Kelin Rosenberg Date of : 1940 Estimated time of injury: 2 days ago LOC: no Transport: EMS from [place] Trauma level: Trauma Consult Work related: No History of Present Illness Kelin Rosenberg is an 83 y.o. White or female states on Tuesday her reports that she fell in the living room. She is amnestic to events. She was initially taken to [facility] and had a CTH which was read as negative and she was admitted for observation status overnight and sent home the following morning. Family later noticed she had slurred speech and she was taken back to the hospital and found that she did have a subarachnoid on original imaging. They spoke with [facility] - felt this was traumatic, she was transferred to [facility] for definitive care. On arrival she [...] Interpersonal Safety: Unknown (06/09/2023) Received from [facility] Safety & Environment Fear of Current or [...] ECG 12-LEAD Result Date: 12/13/2023 Narrative: The [place] [id number] Electrocardiograph Report Signed Patient: KELIN ROSENBERG MR#: [id number] : 1940 Acct:[id number] Age/Sex: 83 / F ADM Date: 12/11/23 Loc: MS 201-[address]: Jennifer Kc M.D. Ordering Physician: Lonnie Washburn Date of Service: 12/11/23 Procedure(s): ECG 12 lead Accession Number(s): [id number] cc: The [facility] Test Date: 2023-12-11 Pat Name: KELIN ROSENBERG Department: Room: - Gender: Female Planning Official: : 1940 Requested By: JENNIFER KC Order Number: [id number] Reading MD: RAMIN OROZCO Measurements Intervals [place] Rate: 49 P: -4 MN: 174 QRS: 127 QRSD: 122 T: 11 QT: 430 QTc: 402 Interpretive Statements 1130 Sinus bradycardia 3234 Anteroseptal myocardial infarction, age undetermined 5120 Possible right ventricular hypertrophy 9150 abnormal ECG No previous ECG available for comparison Electronically Signed On 12-13-2023 22:20:57 EDT by RAMIN OROZCO Dictated By: Ramin Orozco D.O. Signed By: 12/13/23 2221 DD/ 1706 TD/TT: Clinical Informaticist: Independently reviewed radiographic studies to evaluate for [...] Score is: 12 Motor: Left Side Strength: Account Specialist: 5/5 Dorsi/Plantar Flexion: 5/5 Right Side Strength: Account Specialist: 5/5 Dorsi/Plantar Flexion: 5/5 Skin: Skin is [...] can be reached via Patient Touch Pager: [phone] SWAPNIL Norris 12/14/23 6772 documented in this encounter [facility] 12-14-2023 Emergency department Triage note Pt to ER via PTN. Pt transferred from [facility] to see [facility] trauma team. [facility] 12-14-2023 Emergency department Note Pt to ER via PTN. Pt transferred from [facility] to see [facility] trauma team. Images from the original note [...] and Auditory * (Principal) ICH (intracerebral hemorrhage) ([facility]) - Primary No past medical history [...] as of 12/14/23 0601 ICH (intracerebral hemorrhage) ([facility]) [facility] Medical Decision Making Kath Almendarez (scribe) documented [...] List None Diagnosis: 1. ICH (intracerebral hemorrhage) ([facility]) Disposition: Patient's disposition: Admit Patient's condition is stable. Provider Statement By electronically signing this emergency patient record, the Emergency Physician/CLAY PRESS OPERATOR/PA-C attests that all entries made into the electronic medical record by ruben Arce prior to the Physician/CLAY PRESS OPERATOR/PA-C signature reflect an accurate accounting of the evaluation and care rendered by that Emergency Physician/CLAY PRESS OPERATOR/PA-C. The Emergency Physician/CLAY PRESS OPERATOR/PA-C assumes full responsibility for those entries. The Emergency Physician/CLAY PRESS OPERATOR/PA-C also attests that any patient testing or treatment that was instituted by nursing staff in accordance to Emergency Department Preemptive Guidelines have been reviewed and unless so stated elsewhere in this patient chart, the Physician/CLAY PRESS OPERATOR/PA-C agrees with the testing and care provided. Provider Statement: By electronically signing this emergency patient record, the Emergency Physician/CLAY PRESS OPERATOR/PA-C attests that all entries made into the electronic medical record by the scribe prior to the Physician/CLAY PRESS OPERATOR/PA-C signature reflect an accurate accounting of the evaluation and care rendered by that Emergency Physician/CLAY PRESS OPERATOR/PA-C. The Emergency Physician/CLAY PRESS OPERATOR/PA-C assumes full responsibility for those entries. Kath Patterson 12/14/23 0431 Kath Patterson 12/14/23 0439 Kath Patterson 12/14/23 0450 Shawn Branch MD 12/14/23 0506 Kath Patterson 12/14/23 0517 Shawn Branch MD 12/14/23 0601 Bed: 21 Expected date: Expected time: Means of arrival: [facility] Comments: Kelin Chet 1940 [place] ER. 2 days ago fell struck her head was repeating questions. Admitted then d/c home next day back at baseline. Today returns for slurred speech according to family. Ct subarachnoid bleed missed by radiology 2 days ago according to ER attending. Takes baby asa daily. Dr Horton accepts to [facility] ER as trauma consult. 83 female Full code C/o slurred speech with family Fall 3 days ago Admitted for obs Wore halter monitor Old subarchanoid New subarachoid No midline shift Hx of htn 160 systolic EMS just left PTN 156/59, 97% room air documented in this encounter [facility] 12-14-2023 Physician Emergency department Note Images [...] and Auditory * (Principal) ICH (intracerebral hemorrhage) ([facility]) - Primary No past medical history [...] as of 12/14/23 0601 ICH (intracerebral hemorrhage) ([facility]) MDM Medical Decision Making Kath Almendarezscribe) [...] List None Diagnosis: 1. ICH (intracerebral hemorrhage) ([facility]) Disposition: Patient's disposition: Admit Patient's condition is stable. Provider Statement By electronically signing this emergency patient record, the Emergency Physician/CLAY PRESS OPERATOR/PA-C attests that all entries made into the electronic medical record by ruben Arce prior to the Physician/CLAY PRESS OPERATOR/PA-C signature reflect an accurate accounting of the evaluation and care rendered by that Emergency Physician/CLAY PRESS OPERATOR/PA-C. The Emergency Physician/CLAY PRESS OPERATOR/PA-C assumes full responsibility for those entries. The Emergency Physician/CLAY PRESS OPERATOR/PA-C also attests that any patient testing or treatment that was instituted by nursing staff in accordance to Emergency Department Preemptive Guidelines have been reviewed and unless so stated elsewhere in this patient chart, the Physician/CLAY PRESS OPERATOR/PA-C agrees with the testing and care provided. Provider Statement: By electronically signing this emergency patient record, the Emergency Physician/CLAY PRESS OPERATOR/PA-C attests that all entries made into the electronic medical record by the scribe prior to the Physician/CLAY PRESS OPERATOR/PA-C signature reflect an accurate accounting of the evaluation and care rendered by that Emergency Physician/CLAY PRESS OPERATOR/PA-C. The Emergency Physician/CLAY PRESS OPERATOR/PA-C assumes full responsibility for those entries. Kath Patterson 12/14/23 0431 Kath Patterson 12/14/23 0439 Kath peace 12/14/23 0450 Shawn Branch MD 12/14/23 0506 Kath Yesenia 12/14/23 0517 Shawn Branch MD 12/14/23 0601 [facility] 12-14-2023 Emergency department Note Bed: 21 Expected date: Expected time: [facility]: Kelin Chet 1940 [place] [facility]. 2 days ago fell struck her [...] just left PTN 156/59, 97% room air [facility] 04-02-2022 Hospital Discharge instructions Patient Education 04/02/2022 08:53:58 Kidney Stones, Hrsd-sr-Dotw Kidney Stones Kidney stones are rock-like masses [...] Follow these instructions at home: Medicines Take woew-ngd-yzxvrtb and prescription medicines only as told by [...] 09/20/2008 Document Revised: 08/21/2019 Document Reviewed: 08/21/2019 [employer] Patient Education 2019 [employer]. Follow Up Care 03/30/2021 09:32:03 With:SYBIL RODRIGUEZ, Ruiz Rangel, URL Address: [address] [place] [address]- When: Unknown [facility] Evaluation + Plan note No data available for this section [facility] Evaluation note Diagnosis ICH (intracerebral hemorrhage) ([facility] Primary Intracerebral hemorrhage ICH (intracerebral hemorrhage) ([facility]) Intracerebral hemorrhage [facility] on filedocumented in this [facility] Hospital[facility] note No data available for this section [facility] Summary Purpose Family History No Family [...] Referred To Contact Diagnoses ICH (intracerebral hemorrhage) ([facility]) Procedures Follow-up with primary care provider Ludy Christianson PA [address] [address] [place] [address] Referral ID Status Reason Start Date Expiration Date V isits Requested Visits Authorized [id number] Pending Review 12/20/2023 12/19/2024 1 1 Specialty Diagnoses / Procedures Referred By Contac t Referred To Contact Procedures No dressing needed Ludy Christianson PA [address] [place] [address] Referral ID Status Reason Start Date Expiration Date V isits Requested Visits Authorized [id number] Pending Review 12/20/2023 12/19/2024 1 1 Specialty Diagnoses / Procedures Referred By Contac t Referred To Contact Procedures Adult diet Ludy Christianson PA [address] [place] [address] Referral ID Status Reason Start Date Expiration Date V isits Requested Visits Authorized [id number] Pending Review 12/20/2023 12/19/2024 1 1 Specialty Diagnoses / Procedures Referred By Contac t Referred To Contact Occupational Therapy Diagnoses ICH (intracerebral hemorrhage) ([facility]) Ludy Christianson PA [address] [place] [address] Referral ID Status Reason Start Date Expiration Date Visits Requested Visits Authorized [id number] Pending Review Specialty Services Required 12/20/2023 06/18/2024 12 12 Specialty Diagnoses / Procedures Referred By Contac t Referred To Contact Rehabilitation Diagnoses ICH (intracerebral hemorrhage) ([facility]) Ludy Christianson PA [address] [place] [address] Referral ID Status Reason Start Date Expiration Date Visits Requested Visits Authorized [id number] Pending Review Specialty Services Required 12/20/2023 06/18/2024 12 12 Additional Source Comments Patient Care team informatio n (unrecognized section and content) [employer] Pocket Trimmer Relationship Specialty Start Date End Date No P[place], [place] [address] PCP - General Family Medicine 12/14/23 INFORMATION SOURCE (unrecogn ized section and content) DATE CREATED AUTHOR 07/24/2022 [facility] DATE CREATED AUTHOR AUTHOR'S ORGANIZ ATION 12/19/2023 [facility] DATE CREATED AUTHOR AUTHOR'S ORGANIZ ATION 12/25/2023 [facility] DATE CREATED AUTHOR AUTHOR'S ORGANIZ ATION 04/04/[address] [facility] DATE CREATED AUTHOR AUTHOR'S ORGANIZ ATION 07/26/2024 [facility] Reason for Visit (unrecogniz ed section and content) Reason Comments Head Injury With Unknown LOC Fall Specialty Diagnoses / Procedures Referred By Contac t Referred To Contact Diagnoses Syncope ICH (intracerebral hemorrhage) ([facility]) Kyle Horton MD [address] [place] [address] Referral ID Status Reason Start Date Expiration Date Visits Re quested Visits Authorized [id number] 1 1 Scheduled Active and Recently Administ [...] BE BASED ON THE PRIMARY CLINICAL RECORDS. [employer] provides no warranty or guarantee of the accuracy or completeness of information in this document.
== END 2025-01-01 11:26 | disposition home or self-care (01) ==
LOC: LAB 11:26
PROVIDERS: PCP Family Medicine; Visit Provider Family Medicine
DX: M79.606 Pain in leg, unspecified (principal); M85.80 Other specified disorders of bone density and structure, unspecified site; M41.9 Scoliosis, unspecified
CPT/HCPCS: 72110; 73502

== ENCOUNTER 2025-01-03 15:35 | Outpatient (RCR) | payer MEDICARE, OTHER, SELFPAY | END 2025-03-19 07:51 | disposition home or self-care (01) | LOC: PT 15:35 | PROVIDERS: PCP Family Medicine; Visit Provider Family Medicine | DX: M79.606 Pain in leg, unspecified (principal) | CPT/HCPCS: 97010; 97012; 97110; 97112; 97113; 97140; 97162; 97530; G0283 ==